=== PATIENT | female | born 1945 | race Hispanic/Latino ===

== ENCOUNTER 2018-09-08 11:00 | Inpatient (IN) | payer MEDICARE, BC ==
[2018-09-08] MEDS ORDERED: Succinylcholine 200 mg/10 ml Inj IV ONE (11:23)
[2018-09-08] MEDS ORDERED: Etomidate 20 mg/10ml Inj IV ONE (11:23)
--- NOTE | 2018-09-08 11:32 | ED PDOC ---
Arrival/HPI - General Chief Complaint: Respiratory Distress Historian: Family, EMS EM Caveat: Respiratory Distress, Intubated - History of Present Illness Narrative History of Present Illness (Text): Patient brought in by EMS for respiratory distress. Per sister in law at bedside, patient lives alone and is noncompliant with any medical care, has not seen a physician in years and thus has no formally diagnosed medical problems and takes no medications. She is a chronic smoker. She fell 3 weeks ago and since then has been fairly immobile. For the past 3 days she has not moved from her couch. Family checked in on her today and found her with shortness of breath. They were able to convince her to seek medical care, and called 911. Per medics, they arrived to find the patient hypoxic to the high 70's/low 80's, with diffuse rales. They applied CPAP and pulse ox improved to 96%, and gave the patient SL nitro. Upon arrival patient was obtunded and unable to provide any more information. Opens eyes to voice and pain and is able to state her name, but does not answer any other questions. Time/Duration: < week Symptom Onset: Gradual Symptom Course: Unchanged Activities at Onset: Rest Context: Home Past Medical History - Provider Review Nursing Documentation Reviewed: Yes - Past History Past History: Unable to Obtain - Reproductive Menopause: Yes - Cardiac Hx Cardiac Disorders: Yes - Pulmonary Hx Respiratory Disorders: Yes Hx Emphysema: Yes - Musculoskeletal/Rheumatological Hx Falls: No - Psychiatric Hx Depression: No Hx Emotional Abuse: No Hx Physical Abuse: No Hx Substance Use: No - Suicidal Assessment Feels Threatened In Home Enviroment: No Family/Social History - Physician Review Nursing Documentation Reviewed: Yes Family/Social History: No Known Family HX Smoking Status: Current Some Days Smoker Hx Alcohol Use: No (DENIES) Hx Substance Use: No Hx Substance Use Treatment: No Allergies/Home Meds Allergies/Adverse Reactions: Allergies No Known Allergies Allergy (Verified 09/08/18 11:11) Home Medications: Home Meds Medication Instructions Recorded Confirmed No Known Home Med 03/28/12 09/08/18 Review of Systems - Review of Systems Systems not reviewed;Unavailable: Intubated Physical Exam Vital Signs Reviewed: Yes Vital Signs Temp Pulse Resp BP Pulse Ox 09/08/18 11:13 97.9 F 93 H 22 106/28 L 95 Temperature: Afebrile Blood Pressure: Hypertensive Pulse: Tachycardic Respiratory Rate: Other (Intubated) Appearance: Positive for: Ill-Appearing, Unkept Pain Distress: Other (Limited due to condition) Mental Status: Positive for: other (Obtunded) - Systems Exam Head: Present: Atraumatic, Normocephalic Conjunctiva: Present: Normal, Other (crusting to eyes bilaterally) Mouth: Present: Dry Respiratory/Chest: Present: Respiratory Distress, Rales (Bilateral) Cardiovascular: Present: Regular Rate and Rhythm, Tachycardic Abdomen: No: Tenderness Lower Extremity: Present: Edema (3+ pedal edema bilaterally) Skin: Present: Rashes (candidal rash to groin, hips, and under bilateral breasts) Psychiatric: No: Alert Medical Decision Making ED Course and Treatment: 09/08/18 11:47 Impression: 73 y/o F presents to the ED via EMS complaining of SOB, respiratory distress per family. Plan: --EKG --Labs --UA --Aztreonam --Propofol --Vancomycin --Saline IV -- Reassess and disposition Prior Visits: Notes and results from previous visits were reviewed. Progress Notes: Patient obtunded upon arrival, slumped over, drooling into CPAP mask. Decision made to intubate due to mental status and impending respiratory failure. 09/08/18 11:48 PROCEDURE: INTUBATION Performed by the emergency provider Time: 11:17 Consent: Discussion of the risks, benefits, and alternatives to the procedure, along with informed consent achieved. Timeout: A timeout to verify the correct patient, procedure, and site was performed. Indication: Respiratory Distress Pre-oxygenation: [id number], BIPAP Medications: Etomidate, Succinylcholine ETT Size: 7.5 Confirmation: Cords directly visualized as tube passed, good bilateral breath sounds, positive CO2 detector color change, tube fogging, adequate chest rise, improving pulse oximetry reading, improved skin color, and absence of gastric sounds,. ETT Secured: The cuff was inflated and the tube was secured appropriately at a distance of 23cm at the lip. Post-Procedure: There were no immediate complications. Confirmation: CXR, auscultation, end-tidal CO2 with color change Patient started on propofol GTT for post-intubation sedation. BP ranged from 104-120 systolic. Multiple attempts made by RN for large bore IV access with no success. Decision made to obtain central venous access. Performed by the emergency provider, Time: 1:17 Consent: Discussion of the risks, benefits, and alternatives to the procedure, along with informed consent was precluded by the urgency of the procedure and the patient condition. Timeout: A timeout to verify the correct patient, procedure, and site was performed. Indication: Need for large bore venous access Anesthesia: Local anesthesia: Lidocaine Skin Preparation: Hand hygiene performed prior to central venous catheter insertion. Sterile field, sterile drape, sterile technique, and cap and gown were used. The area was cleansed with 2% Chlorhexidine. Patient position: Location: Right IJ Ultrasound guidance: YES Technique: The landmarks for the line placement were identified. The vessel was cannulated and a non-tunneled 7.0 Fr triple lumen was placed using the Seldinger technique. Successful placement: YES . Line sutured with silk and appropriate dressing applied. Assessment: Good patency and blood return through all three lumens. The ports were appropriately flushed. See post procedure X-Ray interpretation. Post-procedure: Patient tolerated the procedure well with no immediate complications. Patient found to be febrile. Given altered mental status and respiratory failure, sepsis presumed. Vancomycin and aztreonam started for empiric broad spectrum coverage. Normal saline infusion initiated, however this was done slowly given clinical presence of CHF. Case discussed with Dr. Law, hospitalist work environment safety inspector, accepted patient to his service. Would also like to rule out PE with CTA, and venous dopplers. Also added CPK due to patient immobility, and d-dimer. Case discussed with ICU team for critical care admission, accepted to ICU. - Critical Care Critical Care Minutes: 60 minutes Critical Care Time: Excluding Proc Time - RAD Interpretation Narrative RAD Interpretations (Text): IMPRESSION: In situ ETT Bibasilar atelectasis and/or infiltrates with suspected bilateral effusions. Cardiomegaly with right-sided aortic arch. - EKG Interpretation EKG Interpretation (Text): NSR rate 93, RAD, RVH, nonspecific ST changes, no ectopy - PA / ELECTRIC TRUCKER / Resident Statement MD/DO has reviewed & agrees with the documentation as recorded. - Scribe Statement The provider has reviewed the documentation as recorded by the Yee Serrano All medical record entries made by the Scribuday were at my direction and personally dictated by me. I have reviewed the chart and agree that the record accurately reflects my personal performance of the history, physical exam, medical decision making, and the department course for this patient. I have also personally directed, reviewed, and agree with the discharge instructions and disposition. Disposition/Present on Arrival - Present on Arrival Any Indicators Present on Arrival: No History of DVT/PE: No History of Uncontrolled Diabetes: No Urinary Catheter: No History of Decub. Ulcer: No History Surgical Site Infection Following: None - Disposition Have Diagnosis and Disposition been Completed?: Yes Diagnosis: Acute respiratory failure, CHF (congestive heart failure), Sepsis Disposition: HOSPITALIZED Disposition Time: 13:51 Patient Plan: ICU Condition: SERIOUS
[2018-09-08] MEDS: Propofol 10 mg/ml 1,000 MG/100 ML VIAL IV PRN ×3 (11:42→21:07)
[2018-09-08] MEDS: Sodium Chloride 0.9% 1,000 ML IV SCH ×2 (11:44→16:50)
[2018-09-08 11:52] VITALS: BMI 41.8
[2018-09-08 12:14] LABS: VENOUS BLOOD GAS PO2 52 mm/Hg (30-55)
[2018-09-08 12:17] LABS: BASO # 0.02 K/mm3 (0.0-2.0); BASO % 0.2 % (0.0-3.0); LYMPH # 0.7 (1.2-3.4); LYMPH % 6.7 % (22.0-35.0); MEAN CELL VOLUME 99.5 fl (80.0-105.0); MEAN CORPUSCULAR HEMOGLOBIN 30.5 pg (25.0-35.0); MEAN CORPUSCULAR HGB CONC 30.6 g/dl (31.0-37.0); MEAN PLATELET VOLUME 10.3 fl (7.0-11.0); MONO # 0.7 (0.1-0.6); MONO % 6.5 % (1.0-6.0); RBC 5.58 10^6/uL (3.5-6.1); RED CELL DISTRIBUTION WIDTH 14.6 % (11.5-14.5); WHITE BLOOD COUNT 10.9 10^3/uL (4.5-11.0)
--- NOTE | 2018-09-08 12:20 | RAD ---
Date of service: 09/08/2018 HISTORY: SOB COMPARISON: Comparison chest dated 03/28/2012 FINDINGS: In situ ETT, tip of which lies approximately 6.4 cm above chidi. Redemonstrated is a right-sided aortic arch. LUNGS: Bibasilar atelectasis and/or infiltrates and bilateral effusions suspected PLEURA: As above. No apparent pneumothorax.. CARDIOVASCULAR: No aortic atherosclerotic calcification present. Heart is enlarged. OSSEOUS STRUCTURES: Levoscoliosis centered in the midthoracic region. VISUALIZED UPPER ABDOMEN: Normal. OTHER FINDINGS: None. IMPRESSION: In situ ETT as described. Bibasilar atelectasis and/or infiltrates with suspected bilateral effusions. Cardiomegaly with right-sided aortic arch..
[2018-09-08 12:25] LABS: INR 1.32; PARTIAL THROMBOPLASTIN TIME 34.5 Seconds (26.9-38.3); PROTHROMBIN TIME 14.9 SECONDS (9.4-12.5)
[2018-09-08] MEDS ORDERED: Vancomycin 1gm in NS 250ml 1 GM/250 ML BAG IVPB STA (12:29)
[2018-09-08] MEDS ORDERED: Aztreonam 2 Gm in NS 100mL 100 ML IVPB STA (12:29)
[2018-09-08 13:03] LABS: ARTERIAL BLOOD GAS HCO3 33.5 mmol/L (21-28); ARTERIAL BLOOD GAS O2 SAT 98.4 % (95-98); ARTERIAL BLOOD GAS PCO2 73 mm/Hg (35-45); ARTERIAL BLOOD GAS PH 7.27 (7.35-7.45); ARTERIAL BLOOD GAS TCO2 35.7 mmol.L (22-28)
[2018-09-08 13:38] LABS: ALBUMIN 3.2 g/dL (3.0-4.8)
[2018-09-08 13:45] LABS: TROPONIN I 0.11 ng/mL
[2018-09-08 13:46] LABS: URINE BILIRUBIN SMALL (NEGATIVE); URINE BLOOD NEGATIVE (NEGATIVE); URINE GLUCOSE (UA) NEGATIVE (NEGATIVE); URINE LEUKOCYTE ESTERASE NEGATIVE Leu/uL (NEGATIVE); URINE PROTEIN 30 mg/dL (<30 mg/dL)
[2018-09-08 13:50] LABS: URINE APPEARANCE TURBID (CLEAR); URINE COLOR YELLOW (YELLOW)
[2018-09-08 14:01] LABS: URINE HYALINE CAST 0 - 2 /hpf
--- NOTE | 2018-09-08 14:02 | RAD ---
Date of service: 09/08/2018 HISTORY: Central line placement COMPARISON: No prior. FINDINGS: Note that the study is limited to partial obscuration of both medial lung apices due overlying facial soft tissue and mandible artifact left greater than right.. Interval placement right IJ central line with tip in the SVC/RA junction. In situ ETT again noted tip of which lies well above chidi to the left midline. LUNGS: Persistent bilateral lower lobe atelectasis and/or infiltrates and bilateral effusions left larger. PLEURA: As above. No pneumothorax apparent. CARDIOVASCULAR: Cardiomegaly again noted.. Right-sided aortic arch Bilateral lower lobe OSSEOUS STRUCTURES: No significant abnormalities. VISUALIZED UPPER ABDOMEN: Normal. OTHER FINDINGS: None. IMPRESSION: Slightly limited study demonstrating interval placement right IJ central line as above. In situ ETT. Persistent bilateral lower lobe atelectasis and/or infiltrates and bilateral effusions left larger. Cardiomegaly. Right-sided aortic arch
--- NOTE | 2018-09-08 14:25 | CARD ---
APPROVED REPORT Date of service: 09/08/2018 EKG Measurement Heart [id number] <Conclusion> Baseline artifact Normal sinus rhythm Right superior axis deviation Right ventricular hypertrophy with repolarization abnormality Inferior infarct, age undetermined Marked ST abnormality, possible lateral subendocardial injury Abnormal ECG
[2018-09-08] MEDS ORDERED: Enoxaparin 40 mg Syringe SC SCH (14:30)
[2018-09-08] MEDS ORDERED: Iohexol 350 MG/100 ML VIAL ONE (14:43)
--- NOTE | 2018-09-08 15:06 | CP.PCM.CON ---
History of Present Illness - History of Present Illness History of Present Illness: MICU CONSULT NOTE HPI Patient is 73yo female without known PMHx presented from home, after being found down for unknown period of time, with resp distress upon presentation to the ER, requiring intubation. Pt was brought in on CPAP by EMS, but had worsening SOB, tachypnea, increased work of breathing, subsequently intubated. Pt is currently intubated, and sedated, history was gathered from the chart and ER staff; no family present at the bedside. Right IJ TLC placed by the ER. PMHx none PSHx unknown Meds NONE FHx unknown Social smoker, unknown amount, ?EtOH ROS cannot obtain, intubated Review of Systems - Review of Systems Review of Systems: as per HPI Past Patient History - Past Social History Smoking Status: Current Some Days Smoker - CARDIAC Hx Cardiac Disorders: Yes - PULMONARY Hx Respiratory Disorders: Yes Hx Emphysema: Yes - MUSCULOSKELETAL/RHEUMATOLOGICAL Hx Falls: No - PSYCHIATRIC Hx Depression: No Hx Emotional Abuse: No Hx Physical Abuse: No Hx Substance Use: No - SURGICAL HISTORY Hx Surgeries: No Meds Allergies/Adverse Reactions: Allergies Allergy/AdvReac Type Severity Reaction Status Date / Time No Known Allergies Allergy Verified 09/08/18 11:11 - Medications Medications: Current Medications Acetaminophen (Tylenol 325mg Tab) 650 mg PO Q6 PRN PRN Reason: TEMP>=99.5F Acetaminophen (Tylenol 650 Mg Supp) 650 mg RC Q6H PRN PRN Reason: TEMP>=99.5F Enoxaparin Sodium (Lovenox) 40 mg SC DAILY SABIHA; Protocol Last Admin: 09/08/18 14:49 Dose: 40 mg Propofol (Diprivan) 1,000 mg in 100 mls @ 3.266 mls/hr IV .Q24H PRN; Protocol PRN Reason: TITRATE PER MD ORDER Last Admin: 09/08/18 11:42 Dose: 3.266 mls/hr Sodium Chloride (Sodium Chloride 0.9%) 1,000 mls @ 150 mls/hr IV .Q6H40M SABIHA Last Admin: 09/08/18 11:44 Dose: 150 mls/hr Doxycycline Hyclate 100 mg/ (Sodium Chloride) 100 mls @ 100 mls/hr IVPB Q12 SABIHA; Protocol Levalbuterol HCl (Xopenex) 0.63 mg IH [id number] SABIHA Ondansetron HCl (Zofran Inj) 4 mg IVP Q4H PRN PRN Reason: Nausea/Vomiting Pantoprazole Sodium (Protonix Inj) 40 mg IVP Q12 SABIHA Physical Exam - Constitutional Appears: No Acute Distress, Unkempt, Older Than Stated Age - Head Exam Head Exam: NORMAL INSPECTION - Eye Exam Eye Exam: Normal appearance - ENT Exam ENT Exam: Mucous Membranes Moist - Respiratory Exam Respiratory Exam: Rales, Wheezes, NORMAL BREATHING PATTERN - Cardiovascular Exam Cardiovascular Exam: REGULAR RHYTHM, +S1, +S2 - GI/Abdominal Exam GI & Abdominal Exam: Normal Bowel Sounds, Soft - Neurological Exam Additional comments: intubated, sedated - Skin Skin Exam: Mottled, Rash Results - Vital Signs Recent Vital Signs: Last Vital Signs Temp 101.1 F H 09/08/18 11:32 Pulse 68 09/08/18 14:00 Resp 20 09/08/18 14:00 BP 112/72 09/08/18 14:00 Pulse Ox 100 09/08/18 14:00 - Labs Result Diagrams: 09/08/18 12:00 09/08/18 13:15 Labs: Laboratory Results - last 24 hr 09/08/18 09/08/18 09/08/18 12:00 12:00 12:00 WBC 10.9 RBC 5.58 Hgb 17.0 H Hct 55.5 H* MCV 99.5 MCH 30.5 MCHC 30.6 L RDW 14.6 H Plt Count 228 MPV 10.3 Neut % (Auto) 86.6 H Lymph % (Auto) 6.7 L Bertie % (Auto) 6.5 H Eos % (Auto) 0.0 L Baso % (Auto) 0.2 Lymph # (Auto) 0.7 L Bertie # (Auto) 0.7 H Eos # (Auto) 0.0 Baso # (Auto) 0.02 Absolute Neuts (auto) 9.40 H PT 14.9 H INR 1.32 APTT 34.5 pCO2 pO2 52 HCO3 ABG pH ABG Total CO2 ABG O2 Saturation ABG Base Excess ABG Potassium VBG pH 7.20 L VBG pCO2 90.0 H* VBG HCO3 35.2 H VBG Total CO2 38.0 H VBG O2 Sat (Calc) 86.2 H VBG Base Excess 4.0 H VBG Potassium 5.5 H Sodium 137.0 Chloride 100.0 Glucose 128 H Lactate 1.7 Mechanical Rate FiO2 21.0 Tidal Volume PEEP Crit Value Called To Renee hannon Crit Value Called By 3299 Blood Gas Notified Time 1215 Potassium Carbon Dioxide Anion Gap BUN Creatinine Est GFR ( Amer) Est GFR (Non-Af Amer) Random Glucose Calcium Phosphorus Magnesium Total Bilirubin AST ALT Alkaline Phosphatase Troponin I NT-Pro-B Natriuret Pep Total Protein Albumin Globulin Albumin/Globulin Ratio Arterial Blood Potassium Venous Blood Potassium 5.5 H Urine Color Urine Appearance Urine pH Ur Specific [place] Urine Protein Urine Glucose (UA) Urine Ketones Urine Blood Urine Nitrate Urine Bilirubin Urine Urobilinogen Ur Leukocyte Esterase Urine RBC Urine WBC Ur Epithelial Cells Hyaline Casts 09/08/18 09/08/18 09/08/18 12:50 13:15 13:25 WBC RBC Hgb Hct MCV MCH MCHC RDW Plt Count MPV Neut % (Auto) Lymph % (Auto) Bertie % (Auto) Eos % (Auto) Baso % (Auto) Lymph # (Auto) Bertie # (Auto) Eos # (Auto) Baso # (Auto) Absolute Neuts (auto) PT INR APTT pCO2 73 H* pO2 108.0 H HCO3 33.5 H ABG pH 7.27 L ABG Total CO2 35.7 H ABG O2 Saturation 98.4 H ABG Base Excess 4.2 H ABG Potassium 5.1 VBG pH VBG pCO2 VBG HCO3 VBG Total CO2 VBG O2 Sat (Calc) VBG Base Excess VBG Potassium Sodium 136.0 139 Chloride 102.0 99 Glucose 120 H Lactate 1.2 Mechanical Rate 18 FiO2 100.0 Tidal Volume 400 PEEP 5 Crit Value Called To Renee hannon Crit Value Called By 3159 Blood Gas Notified Time 1300 Potassium 5.4 H Carbon Dioxide 35 H Anion Gap 11 BUN 47 H Creatinine 1.2 Est GFR ( Amer) 53 Est GFR (Non-Af Amer) 44 Random Glucose 115 H Calcium 9.0 Phosphorus 5.8 H Magnesium 1.9 Total Bilirubin 1.0 AST 36 ALT 25 Alkaline Phosphatase 92 Troponin I 0.11 NT-Pro-B Natriuret Pep 73734 H Total Protein 6.6 Albumin 3.2 Globulin 3.4 Albumin/Globulin Ratio 1.0 L Arterial Blood Potassium 5.1 Venous Blood Potassium Urine Color Yellow Urine Appearance Turbid Urine pH 6.0 Ur Specific [place] 1.020 Urine Protein 30 H Urine Glucose (UA) Negative Urine Ketones Negative Urine Blood Negative Urine Nitrate Negative Urine Bilirubin Small H Urine Urobilinogen 1.0 H Ur Leukocyte Esterase Negative Urine RBC 5 - 10 H Urine WBC None Ur Epithelial Cells 3 - 4 Hyaline Casts 0 - 2 - Imaging and Cardiology Chest x-ray Status: Image reviewed by me, Report reviewed by me Assessment & Plan - Assessment and Plan (Free Text) Assessment: 73yo female a/w resp failure, SOB Resp failure, hypoxic/hypercapnic SOB rule out CHF Rule out PNA COPD exacerbation - currently afebrile, HD stable, intubated, sedated - history is limited to the chart and ER staff, will attempt to get collaterla infor from family, on phone # on records - labs, imaging, chart reviewed, CXR pulm edema/effusions, possible infiltrate - ABG noted Recommend: - cont with vent support, low tidal vol ventilation, duonebs PRN, daily, ABG, CXR, - Solumedrol 40mg IV TID - repeat ABG - LE duplex - Rocephin, Azithro - Panculture, UCx, BCx, Procal - ID eval - Cardio eval - CHeck CPK - if CPK is normal, would start IV diuresis - ECHO - repeat cardiac enzymes - GI ppx - DVT ppx -Critical care time 35 minutes
[2018-09-08] MEDS ORDERED: cefTRIAXone 1 gm 1 GM/100 ML BAG IVPB SCH (16:15)
--- NOTE | 2018-09-08 16:31 | CT ---
Date of service: 09/08/2018 PROCEDURE: CT Chest with contrast (Pulmonary Angiogram) HISTORY: Hypoxia COMPARISON: Comparison made with chest radiograph obtained earlier same day. Comparison also made with CTA chest 03/20/2012. TECHNIQUE: Axial computed tomography images were obtained of the chest in the pulmonary arterial phase of enhancement. Coronal and sagittal reformatted images were created and reviewed. Intravenous contrast dose: 100 cc Omnipaque 350 contrast material. Radiation dose: Total exam DLP = 581.51 mGy-cm. This CT exam was performed using one or more of the following dose reduction techniques: Automated exposure control, adjustment of the mA and/or kV according to patient size, and/or use of iterative reconstruction technique. FINDINGS: Situ tracheostomy tube, tip of which lies approximately 4 cm above chidi. PULMONARY ARTERIES: There is a localized filling defect within the distal aspect right lower lobe pulmonary artery extending into least 2 possibly 3 proximal segmental low branches consistent with pulmonary embolus.. 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 No thoracic aortic aneurysm. Mild aortic atherosclerotic calcification or mural plaque present. LUNGS: There is atelectasis seen in the left medial lung base with crowding of the bronchovascular markings. Small medium size right-sided effusion is present. Mild radiology SV to liver is taking care this patient left basilar atelectasis. Some localized atelectasis and/or scarring seen middle lobe region. Vague ground-glass opacities also seen in the anterior lower lung base. PLEURAL SPACES: As above. No evidence of pneumothorax. HEART: Heart is enlarged. No significant pericardial effusion. LYMPH NODES: Small nonspecific mediastinal lymph nodes are present. BONES, CHEST WALL: Unremarkable. No fracture or destructive lesion OTHER FINDINGS: Coarse a coarse elliptical shaped superior aspect right lobe liver measuring approximately nearly 10 mm in greatest dimension. Previously seen shaped incompletely visualized low-attenuation lesion posterior superior aspect right lobe liver is not appreciated on this exam. Atrophic scarring changes right kidney with few scattered calcifications. No evidence of hydronephrosis. Previously seen posterior redemonstrated are atrophic changes right kidney IMPRESSION: There is evidence of pulmonary emboli are seen within the distal right lower lobe branches and proximal right lower lobe segmental branches.. Small right-sided effusion and mild right basilar atelectasis. There are compressive type atelectatic changes seen in the left medial lung base crowding of the bronchovascular markings. Marked cardiomegaly. Recommend echocardiogram to exclude right heart strain. 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 Findings discussed with Dr. James at approximately 4:22 p.m. with written down and read back verification
--- NOTE | 2018-09-08 16:53 | CP.PCM.CON ---
<Ketan Shrestha - Last Filed: 09/08/18 16:49> History of Present Illness - History of Present Illness History of Present Illness: Ketan Shrestha D.O. PGY-3, Internal Medicine Resident, Infectious Disease Consultation Note 73 year old female with a PMH of COPD and tobacco abuse who presented to [facility] on 09/08/18 after she was found by her family members laying in her couch for about 3 days. Infectious disease consultation was requested for possible UTI vs BL pnemonia. Patient was seen and examined at bedside. Patient is currently intubated and history cannot be obtained. From records, patient had spoken with family and was complaining of shortness of breath. After not hearing from patient for about 3 days they went to visit her and found her on the couch, suspected that she has been there for about those 3 days. Patient was intuabted in the ER. Review of Systems - Review of Systems Systems not reviewed;Unavailable: Intubated Past Patient History - Past Social History Smoking Status: Current Some Days Smoker - CARDIAC Hx Cardiac Disorders: Yes - PULMONARY Hx Respiratory Disorders: Yes Hx Emphysema: Yes - MUSCULOSKELETAL/RHEUMATOLOGICAL Hx Falls: No - PSYCHIATRIC Hx Depression: No Hx Emotional Abuse: No Hx Physical Abuse: No Hx Substance Use: No - SURGICAL HISTORY Hx Surgeries: No Meds Allergies/Adverse Reactions: Allergies Allergy/AdvReac Type Severity Reaction Status Date / Time No Known Allergies Allergy Verified 09/08/18 11:11 - Medications Medications: Current Medications Acetaminophen (Tylenol 325mg Tab) 650 mg PO Q6 PRN PRN Reason: TEMP>=99.5F Acetaminophen (Tylenol 650 Mg Supp) 650 mg RC Q6H PRN PRN Reason: TEMP>=99.5F Propofol (Diprivan) 1,000 mg in 100 mls @ 3.266 mls/hr IV .Q24H PRN; Protocol PRN Reason: TITRATE PER MD ORDER Last Admin: 09/08/18 11:42 Dose: 3.266 mls/hr Sodium Chloride (Sodium Chloride 0.9%) 1,000 mls @ 150 mls/hr IV .Q6H40M SABIHA Last Admin: 09/08/18 11:44 Dose: 150 mls/hr Doxycycline Hyclate 100 mg/ (Sodium Chloride) 100 mls @ 100 mls/hr IVPB Q12 SABIHA; Protocol Ceftriaxone Sodium (Rocephin 1 Gram Ivpb) 1 gm in 100 mls @ 100 mls/hr IVPB DAILY SABIHA; Protocol Heparin Sodium/Sodium Chloride (Heparin 24279 Units/250ml 1/2 Normal Saline) 25,000 units in 250 mls @ 19.922 mls/hr IV .[id number] PRN; Protocol PRN Reason: ADJUST RATE PER PROTOCOL Levalbuterol HCl (Xopenex) 0.63 mg IH [id number] SABIHA Methylprednisolone (Solu-Medrol) 40 mg IVP Q8 SABIHA Nystatin (Nystop Topical Powder) 0 gm TOP Q6 SABIHA Ondansetron HCl (Zofran Inj) 4 mg IVP Q4H PRN PRN Reason: Nausea/Vomiting Pantoprazole Sodium (Protonix Inj) 40 mg IVP Q12 SABIHA Physical Exam - Constitutional Appears: Unkempt, Chronically Ill Additional comments: obese, intubated - Head Exam Head Exam: ATRAUMATIC, NORMOCEPHALIC - Eye Exam Eye Exam: EOMI. absent: Scleral icterus - ENT Exam ENT Exam: Mucous Membranes Dry Additional comments: intubated - Neck Exam Additional comments: obese, soft - Respiratory Exam Respiratory Exam: Rhonchi - Cardiovascular Exam Cardiovascular Exam: Tachycardia, +S1, +S2 - GI/Abdominal Exam GI & Abdominal Exam: Soft Additional comments: erythematous lesions along skin folds - Extremities Exam Additional comments: chronic stasis changes of BLE, possible cellulitic changes to right LE - Neurological Exam Additional comments: intubated - Skin Skin Exam: Dry, Warm Additional comments: erythema along skin folds, also changes in LE as above, fungal like rashe along hands and other surfaces Results - Vital Signs Recent Vital Signs: Last Vital Signs Temp 98.9 F 09/08/18 14:00 Pulse 60 09/08/18 15:15 Resp 18 09/08/18 15:15 BP 101/66 09/08/18 15:15 Pulse Ox 100 09/08/18 15:15 - Labs Result Diagrams: 09/08/18 12:00 09/08/18 13:15 Labs: Laboratory Results - last 24 hr 09/08/18 09/08/18 09/08/18 12:00 12:00 12:00 WBC 10.9 RBC 5.58 Hgb 17.0 H Hct 55.5 H* MCV 99.5 MCH 30.5 MCHC 30.6 L RDW 14.6 H Plt Count 228 MPV 10.3 Neut % (Auto) 86.6 H Lymph % (Auto) 6.7 L Howard % (Auto) 6.5 H Eos % (Auto) 0.0 L Baso % (Auto) 0.2 Lymph # (Auto) 0.7 L Howard # (Auto) 0.7 H Eos # (Auto) 0.0 Baso # (Auto) 0.02 Absolute Neuts (auto) 9.40 H PT 14.9 H INR 1.32 APTT 34.5 pCO2 pO2 52 HCO3 ABG pH ABG Total CO2 ABG O2 Saturation ABG Base Excess ABG Potassium VBG pH 7.20 L VBG pCO2 90.0 H* VBG HCO3 35.2 H VBG Total CO2 38.0 H VBG O2 Sat (Calc) 86.2 H VBG Base Excess 4.0 H VBG Potassium 5.5 H Sodium 137.0 Chloride 100.0 Glucose 128 H Lactate 1.7 Mechanical Rate FiO2 21.0 Tidal Volume PEEP Crit Value Called To Renee hannon Crit Value Called By 3769 Blood Gas Notified Time 1215 Potassium Carbon Dioxide Anion Gap BUN Creatinine Est GFR ( Amer) Est GFR (Non-Af Amer) Random Glucose Uric Acid Calcium Phosphorus Magnesium Total Bilirubin AST ALT Alkaline Phosphatase Total Creatine Kinase Troponin I NT-Pro-B Natriuret Pep Total Protein Albumin Globulin Albumin/Globulin Ratio Arterial Blood Potassium Venous Blood Potassium 5.5 H Urine Color Urine Appearance Urine pH Ur Specific Calvert Urine Protein Urine Glucose (UA) Urine Ketones Urine Blood Urine Nitrate Urine Bilirubin Urine Urobilinogen Ur Leukocyte Esterase Urine RBC Urine WBC Ur Epithelial Cells Hyaline Casts 09/08/18 09/08/18 09/08/18 12:35 12:50 13:15 WBC RBC Hgb Hct MCV MCH MCHC RDW Plt Count MPV Neut % (Auto) Lymph % (Auto) Howard % (Auto) Eos % (Auto) Baso % (Auto) Lymph # (Auto) Howard # (Auto) Eos # (Auto) Baso # (Auto) Absolute Neuts (auto) PT INR APTT pCO2 73 H* pO2 108.0 H HCO3 33.5 H ABG pH 7.27 L ABG Total CO2 35.7 H ABG O2 Saturation 98.4 H ABG Base Excess 4.2 H ABG Potassium 5.1 VBG pH VBG pCO2 VBG HCO3 VBG Total CO2 VBG O2 Sat (Calc) VBG Base Excess VBG Potassium Sodium 136.0 139 Chloride 102.0 99 Glucose 120 H Lactate 1.2 Mechanical Rate 18 FiO2 100.0 Tidal Volume 400 PEEP 5 Crit Value Called To Renee hannon Crit Value Called By 3769 Blood Gas Notified Time 1300 Potassium 5.4 H Carbon Dioxide 35 H Anion Gap 11 BUN 47 H Creatinine 1.2 Est GFR ( Amer) 53 Est GFR (Non-Af Amer) 44 Random Glucose 115 H Uric Acid 8.0 H Calcium 9.0 Phosphorus 5.8 H Magnesium 1.9 Total Bilirubin 1.0 AST 36 ALT 25 Alkaline Phosphatase 92 Total Creatine Kinase 152 Troponin I 0.11 NT-Pro-B Natriuret Pep 36403 H Total Protein 6.6 Albumin 3.2 Globulin 3.4 Albumin/Globulin Ratio 1.0 L Arterial Blood Potassium 5.1 Venous Blood Potassium Urine Color Urine Appearance Urine pH Ur Specific Calvert Urine Protein Urine Glucose (UA) Urine Ketones Urine Blood Urine Nitrate Urine Bilirubin Urine Urobilinogen Ur Leukocyte Esterase Urine RBC Urine WBC Ur Epithelial Cells Hyaline Casts 09/08/18 13:25 WBC RBC Hgb Hct MCV MCH MCHC RDW Plt Count MPV Neut % (Auto) Lymph % (Auto) Howard % (Auto) Eos % (Auto) Baso % (Auto) Lymph # (Auto) Howard # (Auto) Eos # (Auto) Baso # (Auto) Absolute Neuts (auto) PT INR APTT pCO2 pO2 HCO3 ABG pH ABG Total CO2 ABG O2 Saturation ABG Base Excess ABG Potassium VBG pH VBG pCO2 VBG HCO3 VBG Total CO2 VBG O2 Sat (Calc) VBG Base Excess VBG Potassium Sodium Chloride Glucose Lactate Mechanical Rate FiO2 Tidal Volume PEEP Crit Value Called To Crit Value Called By Blood Gas Notified Time Potassium Carbon Dioxide Anion Gap BUN Creatinine Est GFR ( Amer) Est GFR (Non-Af Amer) Random Glucose Uric Acid Calcium Phosphorus Magnesium Total Bilirubin AST ALT Alkaline Phosphatase Total Creatine Kinase Troponin I NT-Pro-B Natriuret Pep Total Protein Albumin Globulin Albumin/Globulin Ratio Arterial Blood Potassium Venous Blood Potassium Urine Color Yellow Urine Appearance Turbid Urine pH 6.0 Ur Specific Calvert 1.020 Urine Protein 30 H Urine Glucose (UA) Negative Urine Ketones Negative Urine Blood Negative Urine Nitrate Negative Urine Bilirubin Small H Urine Urobilinogen 1.0 H Ur Leukocyte Esterase Negative Urine RBC 5 - 10 H Urine WBC None Ur Epithelial Cells 3 - 4 Hyaline Casts 0 - 2 Assessment & Plan - Assessment and Plan (Free Text) Assessment: 73 year old female with a PMH of COPD and tobacco abuse who presented to [facility] on 09/08/18 after she was found by her family members laying in her couch for about 3 days. Infectious disease consultation was requested for possible UTI vs BL pnemonia. Plan: Severe sepsis (3/4 SIRS with tachycardia, tachypnea and fever and likely pulmonary source) with RUBI Acute respiratory failure Likely BL pneumonia Pleural effusions CXR reviewed, appears to show BL basal atelectasis vs pneumonia Chest CT supports above with BL pleural effusions and compressive atelectasis vs pneumonia and also subsegmental PE Procalcitonin, legionella ag, and strep ag ordered Started empirically on doxy/merrem/vanco Day 1 Pancultured Agree with echo evaluation Being followed by ICU team We will follow with you Patient was seen and examined and case to be discussed with attending physician. Thank you for the pleasure of participating in the care of this interesting patient. - Date & Time Date: 09/08/18 Time: 16:56 <Agapito Rojo - Last Filed: 09/08/18 18:23> Meds - Medications Medications: Current Medications Acetaminophen (Tylenol 325mg Tab) 650 mg PO Q6 PRN PRN Reason: TEMP>=99.5F Acetaminophen (Tylenol 650 Mg Supp) 650 mg RC Q6H PRN PRN Reason: TEMP>=99.5F Propofol (Diprivan) 1,000 mg in 100 mls @ 3.266 mls/hr IV .Q24H PRN; Protocol PRN Reason: TITRATE PER MD ORDER Last Admin: 09/08/18 16:55 Dose: 30.61 mcg/kg/min, 20 mls/hr Sodium Chloride (Sodium Chloride 0.9%) 1,000 mls @ 150 mls/hr IV .Q6H40M SABIHA Last Admin: 09/08/18 16:50 Dose: 150 mls/hr Doxycycline Hyclate 100 mg/ (Sodium Chloride) 100 mls @ 100 mls/hr IVPB Q12 SABIHA; Protocol Heparin Sodium/Sodium Chloride (Heparin 15676 Units/250ml 1/2 Normal Saline) 25,000 units in 250 mls @ 19.922 mls/hr IV .[id number] PRN; Protocol PRN Reason: ADJUST RATE PER PROTOCOL Last Admin: 09/08/18 17:09 Dose: 18 units/kg/hr, 19.922 mls/hr Vancomycin HCl (Vancomycin 1gm) 1 gm in 250 mls @ 167 mls/hr IVPB DAILY SABIHA; Protocol Meropenem (Merrem Iv 1 Gm Premix) 1 gm in 50 mls @ 100 mls/hr IVPB Q12 SABIHA; Protocol Stop: 09/17/18 22:01 Levalbuterol HCl (Xopenex) 0.63 mg IH [id number] SABIHA Methylprednisolone (Solu-Medrol) 40 mg IVP Q8 SABIHA Nystatin (Nystop Topical Powder) 0 gm TOP Q6 SABIHA Last Admin: 09/08/18 18:04 Dose: 1 pdr Ondansetron HCl (Zofran Inj) 4 mg IVP Q4H PRN PRN Reason: Nausea/Vomiting Pantoprazole Sodium (Protonix Inj) 40 mg IVP Q12 SABIHA Results - Vital Signs Recent Vital Signs: Last Vital Signs Temp 98.9 F 09/08/18 14:00 Pulse 60 09/08/18 15:15 Resp 18 09/08/18 15:15 BP 101/66 09/08/18 15:15 Pulse Ox 100 09/08/18 15:15 - Labs Result Diagrams: 09/08/18 12:00 09/08/18 13:15 Labs: Laboratory Results - last 24 hr 09/08/18 09/08/18 09/08/18 12:00 12:00 12:00 WBC 10.9 RBC 5.58 Hgb 17.0 H Hct 55.5 H* MCV 99.5 MCH 30.5 MCHC 30.6 L RDW 14.6 H Plt Count 228 MPV 10.3 Neut % (Auto) 86.6 H Lymph % (Auto) 6.7 L Howard % (Auto) 6.5 H Eos % (Auto) 0.0 L Baso % (Auto) 0.2 Lymph # (Auto) 0.7 L Howard # (Auto) 0.7 H Eos # (Auto) 0.0 Baso # (Auto) 0.02 Absolute Neuts (auto) 9.40 H PT 14.9 H INR 1.32 APTT 34.5 pCO2 pO2 52 HCO3 ABG pH ABG Total CO2 ABG O2 Saturation ABG Base Excess ABG Potassium VBG pH 7.20 L VBG pCO2 90.0 H* VBG HCO3 35.2 H VBG Total CO2 38.0 H VBG O2 Sat (Calc) 86.2 H VBG Base Excess 4.0 H VBG Potassium 5.5 H Sodium 137.0 Chloride 100.0 Glucose 128 H Lactate 1.7 Mechanical Rate FiO2 21.0 Tidal Volume PEEP Crit Value Called To Renee hannon Crit Value Called By [id number] Blood Gas Notified Time 1215 Potassium Carbon Dioxide Anion Gap BUN Creatinine Est GFR ( Amer) Est GFR (Non-Af Amer) Random Glucose Uric Acid Calcium Phosphorus Magnesium Total Bilirubin AST ALT Alkaline Phosphatase Total Creatine Kinase Troponin I NT-Pro-B Natriuret Pep Total Protein Albumin Globulin Albumin/Globulin Ratio Arterial Blood Potassium Venous Blood Potassium 5.5 H Urine Color Urine Appearance Urine pH Ur Specific Calvert Urine Protein Urine Glucose (UA) Urine Ketones Urine Blood Urine Nitrate Urine Bilirubin Urine Urobilinogen Ur Leukocyte Esterase Urine RBC Urine WBC Ur Epithelial Cells Hyaline Casts 09/08/18 09/08/18 09/08/18 12:35 12:50 13:15 WBC RBC Hgb Hct MCV MCH MCHC RDW Plt Count MPV Neut % (Auto) Lymph % (Auto) Howard % (Auto) Eos % (Auto) Baso % (Auto) Lymph # (Auto) Howard # (Auto) Eos # (Auto) Baso # (Auto) Absolute Neuts (auto) PT INR APTT pCO2 73 H* pO2 108.0 H HCO3 33.5 H ABG pH 7.27 L ABG Total CO2 35.7 H ABG O2 Saturation 98.4 H ABG Base Excess 4.2 H ABG Potassium 5.1 VBG pH VBG pCO2 VBG HCO3 VBG Total CO2 VBG O2 Sat (Calc) VBG Base Excess VBG Potassium Sodium 136.0 139 Chloride 102.0 99 Glucose 120 H Lactate 1.2 Mechanical Rate 18 FiO2 100.0 Tidal Volume 400 PEEP 5 Crit Value Called To Renee hannon Crit Value Called By 3769 Blood Gas Notified Time 1300 Potassium 5.4 H Carbon Dioxide 35 H Anion Gap 11 BUN 47 H Creatinine 1.2 Est GFR ( Amer) 53 Est GFR (Non-Af Amer) 44 Random Glucose 115 H Uric Acid 8.0 H Calcium 9.0 Phosphorus 5.8 H Magnesium 1.9 Total Bilirubin 1.0 AST 36 ALT 25 Alkaline Phosphatase 92 Total Creatine Kinase 152 Troponin I 0.11 NT-Pro-B Natriuret Pep 30877 H Total Protein 6.6 Albumin 3.2 Globulin 3.4 Albumin/Globulin Ratio 1.0 L Arterial Blood Potassium 5.1 Venous Blood Potassium Urine Color Urine Appearance Urine pH Ur Specific Calvert Urine Protein Urine Glucose (UA) Urine Ketones Urine Blood Urine Nitrate Urine Bilirubin Urine Urobilinogen Ur Leukocyte Esterase Urine RBC Urine WBC Ur Epithelial Cells Hyaline Casts 09/08/18 13:25 WBC RBC Hgb Hct MCV MCH MCHC RDW Plt Count MPV Neut % (Auto) Lymph % (Auto) Howard % (Auto) Eos % (Auto) Baso % (Auto) Lymph # (Auto) Howard # (Auto) Eos # (Auto) Baso # (Auto) Absolute Neuts (auto) PT INR APTT pCO2 pO2 HCO3 ABG pH ABG Total CO2 ABG O2 Saturation ABG Base Excess ABG Potassium VBG pH VBG pCO2 VBG HCO3 VBG Total CO2 VBG O2 Sat (Calc) VBG Base Excess VBG Potassium Sodium Chloride Glucose Lactate Mechanical Rate FiO2 Tidal Volume PEEP Crit Value Called To Crit Value Called By Blood Gas Notified Time Potassium Carbon Dioxide Anion Gap BUN Creatinine Est GFR ( Amer) Est GFR (Non-Af Amer) Random Glucose Uric Acid Calcium Phosphorus Magnesium Total Bilirubin AST ALT Alkaline Phosphatase Total Creatine Kinase Troponin I NT-Pro-B Natriuret Pep Total Protein Albumin Globulin Albumin/Globulin Ratio Arterial Blood Potassium Venous Blood Potassium Urine Color Yellow Urine Appearance Turbid Urine pH 6.0 Ur Specific Calvert 1.020 Urine Protein 30 H Urine Glucose (UA) Negative Urine Ketones Negative Urine Blood Negative Urine Nitrate Negative Urine Bilirubin Small H Urine Urobilinogen 1.0 H Ur Leukocyte Esterase Negative Urine RBC 5 - 10 H Urine WBC None Ur Epithelial Cells 3 - 4 Hyaline Casts 0 - 2 Attending/Attestation - Attestation I have personally seen and examined this patient.: Yes I have fully participated in the care of the patient.: Yes I have reviewed all pertinent clinical information: Yes
[2018-09-08] MEDS: Heparin25000 units/250ml 1/2NS 25,000 UNITS/250 ML BAG IV PRN (17:09)
[2018-09-08] MEDS: Nystatin 100,000 Units/gm Topical Pow(15 gm) TOP SCH (18:04)
[2018-09-08] MEDS: Levalbuterol 0.63 MG/3 ML Inhal Soln UD IH SCH (19:49)
[2018-09-08 20:13] LABS: ARTERIAL BLOOD GAS HCO3 27.7 mmol/L (21-28); ARTERIAL BLOOD GAS HEMOGLOBIN 15.5 g/dL (11.7-17.4); ARTERIAL BLOOD GAS O2 CAPACITY 21.1 mL/dl (16-24); ARTERIAL BLOOD GAS O2 CONTENT 20.9 ML/dl (15-23); ARTERIAL BLOOD GAS PCO2 38 mm/Hg (35-45); ARTERIAL BLOOD GAS PH 7.47 (7.35-7.45); ARTERIAL BLOOD GAS TCO2 28.9 mmol.L (22-28)
[2018-09-08 20:40] LABS: FREE T4 0.83 ng/dL (0.78-2.19)
[2018-09-08 20:49] LABS: TROPONIN I 0.13 ng/mL
[2018-09-08] MEDS: Meropenem IV 1 gm in NS 1 GM/50 ML BAG IVPB SCH (21:06)
[2018-09-08] MEDS: MethylPREDNISolone 40 mg Vial IVP SCH (21:07)
[2018-09-08] MEDS ORDERED: MEROPENEM 500 MG in NS 500 MG/50 ML BAG IVPB SCH (22:00)
--- NOTE | 2018-09-08 22:23 | CP.PCM.PN ---
Subjective - Date & Time of Evaluation Date of Evaluation: 09/08/18 Time of Evaluation: 22:20 - Subjective Subjective: It was requested to co sign order renew restraint order. Patient has been intubated . Medical record was reviewed. This 73 year old woman was admitted after she was found to haverespiratory distress of unknown duration. Intubated. H & H-17/55.5. Hyperkalemia-5.4. BUN-47. D-dimer 1600. 7.47/38/98/27.7 on 80%. Trop 0.13 T4 3.4. CXR- B/L basal atelectasis VS PNA. CT Angio.-Pulmonary emboli within distal RLL. Lower Ext. doppler-Neg. PMH: COPD. Tobacco abuse. CURRENT MEDS: Diprivan. Doxycycline. Merrem Protonix. nystatin. Heparin drip. solumedrol Objective - Vital Signs/Intake and Output Vital Signs (last 24 hours): Temp Pulse Resp BP Pulse Ox 98.8 F 69 21 134/76 90 L 09/08/18 20:00 09/08/18 19:30 09/08/18 16:12 09/08/18 19:00 09/08/18 19:30 Intake and Output: 09/08/18 09/09/18 18:59 06:59 Intake Total 700 100 Output Total 700 Balance 0 100 - Medications Medications: Current Medications Acetaminophen (Tylenol 325mg Tab) 650 mg PO Q6 PRN PRN Reason: TEMP>=99.5F Acetaminophen (Tylenol 650 Mg Supp) 650 mg RC Q6H PRN PRN Reason: TEMP>=99.5F Propofol (Diprivan) 1,000 mg in 100 mls @ 3.266 mls/hr IV .Q24H PRN; Protocol PRN Reason: TITRATE PER MD ORDER Last Admin: 09/08/18 21:07 Dose: 30.61 mcg/kg/min, 20 mls/hr Sodium Chloride (Sodium Chloride 0.9%) 1,000 mls @ 150 mls/hr IV .Q6H40M SABIHA Last Admin: 09/08/18 16:50 Dose: 150 mls/hr Doxycycline Hyclate 100 mg/ (Sodium Chloride) 100 mls @ 100 mls/hr IVPB Q12 SABIHA; Protocol Last Admin: 09/08/18 21:07 Dose: 100 mls/hr Heparin Sodium/Sodium Chloride (Heparin 53899 Units/250ml 1/2 Normal Saline) 25,000 units in 250 mls @ 19.922 mls/hr IV .[id number] PRN; Protocol PRN Reason: ADJUST RATE PER PROTOCOL Last Admin: 09/08/18 17:09 Dose: 18 units/kg/hr, 19.922 mls/hr Vancomycin HCl (Vancomycin 1gm) 1 gm in 250 mls @ 167 mls/hr IVPB DAILY SABIHA; Protocol Meropenem (Merrem Iv 1 Gm Premix) 1 gm in 50 mls @ 100 mls/hr IVPB Q12 SABIHA; Protocol Stop: 09/17/18 22:01 Last Admin: 09/08/18 21:06 Dose: 100 mls/hr Levalbuterol HCl (Xopenex) 0.63 mg IH [id number] SABIHA Last Admin: 09/08/18 19:49 Dose: 0.63 mg Methylprednisolone (Solu-Medrol) 40 mg IVP Q8 SABIHA Last Admin: 09/08/18 21:07 Dose: 40 mg Nystatin (Nystop Topical Powder) 0 gm TOP Q6 SABIHA Last Admin: 09/08/18 18:04 Dose: 1 pdr Ondansetron HCl (Zofran Inj) 4 mg IVP Q4H PRN PRN Reason: Nausea/Vomiting Pantoprazole Sodium (Protonix Inj) 40 mg IVP Q12 SABIHA - Labs Labs: 09/08/18 12:00 09/08/18 13:15 PT 14.9 SECONDS (9.4-12.5) H 09/08/18 12:00 INR 1.32 09/08/18 12:00 APTT 34.5 Seconds (26.9-38.3) 09/08/18 12:00 - Constitutional Appears: No Acute Distress - Head Exam Head Exam: ATRAUMATIC, NORMAL INSPECTION, NORMOCEPHALIC - Eye Exam Eye Exam: Normal appearance - ENT Exam ENT Exam: Normal External Ear Exam - Neck Exam Neck Exam: Normal Inspection - Respiratory Exam Respiratory Exam: NORMAL BREATHING PATTERN - Cardiovascular Exam Cardiovascular Exam: absent: JVD - GI/Abdominal Exam GI & Abdominal Exam: absent: Distended - Rectal Exam Rectal Exam: Deferred - Exam Additional comments: Deferred. - Extremities Exam Extremities Exam: Normal Inspection - Back Exam Back Exam: NORMAL INSPECTION - Neurological Exam Neurological Exam: Altered - Psychiatric Exam Additional comments: Intubated. - Skin Skin Exam: Normal Color Assessment and Plan - Assessment and Plan (Free Text) Assessment: Reapiratory failure. Right lower lobe pulmonary embolism. COPD. Tobacco use. Elevated D-dimer. Obesity. Elevated troponin. Plan: Restrain both wrist to avoid extubation. Continue present management.
[2018-09-08] MEDS ORDERED: Influenza Vaccine 60 mcg/0.5 mL SYR (4YR UP) IM ONE (22:42)
[2018-09-08] MEDS ORDERED: Pneumococcal 23-Valent Vaccine IM ONE (22:42)
[2018-09-08] MEDS ORDERED: Dextrose 50% SYRINGE Inj (50 ml) IV PRN (22:59)
[2018-09-09] MEDS: Insulin Lispro (HUMAlog) HIGH Coverage SC SCH ×5 (00:16→23:21)
[2018-09-09] MEDS: Nystatin 100,000 Units/gm Topical Pow(15 gm) TOP SCH ×5 (00:18→23:17)
[2018-09-09 00:27] LABS: TROPONIN I 0.08 ng/mL
[2018-09-09 01:19] LABS: BARBITURATES, UR NEGATIVE (NEGATIVE); BENZODIAZEPINES, UR NEGATIVE (NEGATIVE); OPIATES, UR NEGATIVE (NEGATIVE); PHENCYCLIDINE, UR NEGATIVE (NEGATIVE)
[2018-09-09] MEDS: Levalbuterol 0.63 MG/3 ML Inhal Soln UD IH SCH ×4 (02:13→20:15)
[2018-09-09] MEDS: Nystatin 100,000 Units/gm Cream(15 gm) TOP SCH ×4 (02:19→17:38)
[2018-09-09] MEDS: Propofol 10 mg/ml 1,000 MG/100 ML VIAL IV PRN (02:39)
--- NOTE | 2018-09-09 03:24 | HP ---
DATE OF EXAM: 09/08/2018 HISTORY OF PRESENT ILLNESS: The patient is a 73-year-old female who was brought to the [facility] emergency room by the EMS, [facility]. The patient called 911 complaining of sick and respiratory distress. According to the ER evaluation by the EMS, the patient was found to be sick and respiratory distress on arrival, was noted to have crackles all the way. The patient was finally to be hypoxic in the field by the EMS about saturating around 80%. The patient was put on BiPAP by the EMS squad and brought to the [facility] emergency room. According to the ER physician evaluation, most of the history is obtained through the patient's sister. According to the sister, the patient lives alone, has not seen doctor for decades, does not take any medication, but is an active smoker. According to the ER physician evaluation, the patient lives alone, fell 3 weeks ago and has not been responsive to calls and has not been . The family arrived at the patient's home and the patient was found to be laying in couch. The patient was found to be short of breath. EMS was called right away. The patient was found to be drowsy with bilateral rales. The patient was put on BiPAP. The patient was given sublingual nitroglycerin. REVIEW OF SYSTEMS: A 14-system review positive for above. CODE STATUS: Full code. LIVING WILL ADVANCE DIRECTIVE: None. Height is 5 feet 4 inches. Weight is 244. BMI is 42. ALLERGIES: NONE. HOME MEDICATIONS: None. SOCIAL HISTORY: Positive for active smoker. 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 FAMILY HISTORY: Not available at this time. OCCUPATIONAL HISTORY: As above. MENSTRUAL HISTORY: Postmenopausal. MEDICATIONS: None. PAST MEDICAL HISTORY: Significant for active smoker, history of morbid obesity, history of nicotine addiction and dependence, history of hypertensive cardiovascular disease, history of poor compliance and noncompliance. PHYSICAL EXAMINATION: GENERAL: The patient was seen in the ICU intubated. The patient's sister is at bedside. The patient is responsive to painful stimuli. VITAL SIGNS: T-max 101, temperature 101 degrees Fahrenheit. Telemetry shows sinus rhythm, heart rate 70s and 80s. Initial heart rate was 97. Blood pressure initially 151/90 and repeat blood pressure systolic around 110 and 140 systolic. The patient was intubated in the emergency room, O2 sat initially was 94, then up to 98%. The patient is presently intubated. The patient is on vent support with rate of 20, tidal volume 450, PEEP of 5, and O2 sat of 80% at present. HEENT: Head; normocephalic and atraumatic. HEENT examination shows pink conjunctivae. Positive ET tube. NECK: Questionable jugular venous distention. CHEST: Kyphosis. LUNGS: Shows coarse rhonchi and wheezing bilaterally. Decreased breath sounds at the bases. CARDIOVASCULAR: S1 and S2, regular rhythm. Positive systolic murmur left sternal border, right second intercostal space, left second intercostal space. Positive systolic murmur. ABDOMEN: Protuberant and obese. Positive bowel sounds. Positive poor hygiene and groin rash noted. GENITALIA: Female. Positive Alonzo catheter noted. MUSCULOSKELETAL: Shows a body mass index of 42. EXTREMITIES: The patient has 2+ pitting edema noted of the lower extremity. NEUROLOGIC: The patient is sedated, intubated, and responsive to painful stimuli. The patient's neuro examination is limited. DIAGNOSTIC DATA: CBC shows granulocytes 87 and hemoglobin and hematocrit 17 and 55.5. PT/PTT 14.9 and 34.5. D-dimer is 1600. Initial ABG; pH of 7.27, pCO2 of 73, and pO2 of 108. Repeat ABG on 80% FIO2, pH of 7.47, pCO2 of 38, pO2 of 98, bicarb 28, and O2 sat is 99%. Chemistry is significant for potassium 5.4, BUN 47, CO2 of 35, uric acid 8, hemoglobin A1c 6.8, glucose 115, and phosphorus 5.8. Troponin initially 0.11 then 0.13. BNP is 30,000. Urinalysis; 30 protein and small bilirubin. The patient had a CT angio done, the results were reviewed. The patient had a chest x-ray done, the results were reviewed. EKG was done in the emergency room, which was reviewed. The patient also had a right internal jugular triple-lumen catheter placement. IMPRESSION AND PLAN: 1. Acute ventilator-dependent respiratory failure. 2. Acute ventilator-dependent hypoxic-hypercarbic respiratory failure. 3. Respiratory acidosis with hypercarbia. 4. Distal right lower lobe and proximal right lower lobe segmental branches pulmonary embolism. 5. Right lower lobe pneumonia, infiltrate atelectasis with right-sided effusion. 6. Bibasilar atelectasis. 7. Cardiomegaly. 8. Possible pulmonary hypertension. 9. Right-sided aortic arch with aberrant left subclavian artery. 10. Left lower lobe atelectasis. 11. Bibasilar pulmonary opacities versus pneumonia. 12. Nonspecific mediastinal lymphadenopathy. 13. Active nicotine addiction and dependence. 14. Right renal atrophic scarring. 15. Right axis deviation. 16. Right ventricular hypertrophy. 17. Possible acute non-ST elevation myocardial infarction with elevated troponin. 18. Questionable sepsis with high-grade fever. 19. Tachycardia. 20. Tachypnea. 21. Hypoxemia. 22. Erythrocytosis with granulocytosis. 23. Elevated d-dimer. 24. Hypercarbia respiratory acidosis. 25. Non-hemolyzed hyperkalemia. 26. Possible new-onset diabetes mellitus. 27. Metabolic alkalosis. 28. Prerenal kidney injury. 29. Acute non-ST elevation myocardial infarction with elevated troponin and abnormal electrocardiogram with right axis deviation, right ventricular hypertrophy, and age indeterminate inferior infarct and possible lateral subendocardial injury. 30. Hyperphosphatemia. 31. Congestive heart failure whether systolic or diastolic with elevated ProBNP. 32. Proteinuria. 33. Bibasilar atelectasis, pneumonia and bilateral pleural effusion. 34. Cardiomegaly. 35. Status post right internal jugular triple-lumen catheter placement. 36. High-grade fever. 37. Right-sided aortic arch. 38. Acute exacerbation of chronic obstructive pulmonary disease. 39. Bibasilar atelectasis, infiltrate and bilateral pleural effusion. 40. Bilateral inguinal area fungal rash. 41. Severe sepsis. 42. Morbid obesity. 43. Bilateral lower extremity venous stasis. 44. Early diabetes mellitus. The patient at this time is admitted to Intensive Care Unit. The patient is continued on ventilator support. The patient has been ordered repeat serial labs, repeat cardiac enzymes, lipid panel, liver panel, magnesium, phosphorus, proBNP troponin, influenza titers ordered, Strep pneumoniae ordered, repeat CBC and PT/PTT daily ordered, and repeat ABG ordered. Blood, urine, MRSA cultures, and sputum cultures ordered. CONSULTATIONS: Cardiology, Infectious Disease, and Nephrology. CURRENT MEDICATIONS: The patient was given 2 g of Azactam in the ER. The patient was started on doxycycline 100 IV every 12 hours. The patient was started on IV heparin drip for the treatment of pulmonary embolism and also acute [id number] myocardial infarction. The patient was started on insulin sliding scale every 6 hours. The patient is started on pharmacological, non-pharmacological, GI, DVT prophylaxis, Lasix 40 IV every 12 hours, meropenem 1 g IV every 12 hours, Mycostatin cream to the groin area, and nicotine patch 21 mg daily. The patient is presently on Diprivan drip and Protonix 40 IV every 12 hours. The patient received Solu-Medrol 60 IV in the ER. The patient is now on Solu-Medrol 40 IV every 8 hours, Tylenol p.o. suppository every 6 hours p.r.n. the patient is also started on vancomycin 1 g IV daily by Infectious Disease, Xopenex nebulizer 0.63 mg every 6 hours [id number], and Zofran four IV every 4 hours. Venous Doppler preliminary report was to be negative, but official report pending. The patient has been ordered repeat EKG daily, echo with Doppler ordered. SCDs and OCHOA stockings ordered. In addition, the patient will be ordered Podiatry evaluation. The patient is presently intubated, admitted to ICU. The patient's all clinical details, all test results, all diagnostic details, initial admission impression, diagnosis was explained and discussed with the patient's dpuabd-qw-yup, Dr. Kaye Lopez, she is the [id number]. I have explained to the patient's vojkos-op-zob about overall guarded to poor prognosis, critical condition, which she acknowledged and understand. I have advised to the patient's odkxbl-ll-eoy about overall guarded to poor prognosis, critical condition which she acknowledged and understand. I have also explained to the patient's erqqim-lc-ksh in layman's language about the patient's overall guarded to poor prognosis and the likelihood of developing complications was also explained to the patient's dferda-od-yxl, which she acknowledged understand. All of the above was discussed with the patient's fwwbxv-uy-pun in layman's language. All questions concerned answered. At present, the patient is admitted to ICU. The patient's diagnostic data was reviewed, including all the diagnostic data was reviewed. The patient was examined in ICU. Time spent in the entire management more than 1 hour 55 minutes. Dictated and electronically signed, not read. Manuel Law MD
[2018-09-09] MEDS: MethylPREDNISolone 40 mg Vial IVP SCH ×3 (05:15→21:00)
[2018-09-09 06:20] LABS: ARTERIAL BLOOD GAS HCO3 30.8 mmol/L (21-28); ARTERIAL BLOOD GAS HEMOGLOBIN 15.4 g/dL (11.7-17.4); ARTERIAL BLOOD GAS O2 CAPACITY 20.9 mL/dl (16-24); ARTERIAL BLOOD GAS O2 CONTENT 19.7 ML/dl (15-23); ARTERIAL BLOOD GAS O2 SAT 94.2 % (95-98); ARTERIAL BLOOD GAS PCO2 52 mm/Hg (35-45); ARTERIAL BLOOD GAS PH 7.38 (7.35-7.45); ARTERIAL BLOOD GAS TCO2 32.4 mmol.L (22-28)
[2018-09-09 06:50] LABS: HEMOGLOBIN 15.6 g/dL (12.0-16.0); LYMPH # 0.6 (1.2-3.4); LYMPH % 6.3 % (22.0-35.0); MEAN CELL VOLUME 95.4 fl (80.0-105.0); MEAN CORPUSCULAR HEMOGLOBIN 29.7 pg (25.0-35.0); MEAN CORPUSCULAR HGB CONC 31.1 g/dl (31.0-37.0); MONO # 0.4 (0.1-0.6); MONO % 3.9 % (1.0-6.0); RBC 5.26 10^6/uL (3.5-6.1); RED CELL DISTRIBUTION WIDTH 14.6 % (11.5-14.5); WHITE BLOOD COUNT 9.5 10^3/uL (4.5-11.0)
[2018-09-09 07:06] LABS: INR 1.39; PARTIAL THROMBOPLASTIN TIME 81.3 Seconds (26.9-38.3); PROTHROMBIN TIME 15.7 SECONDS (9.4-12.5)
[2018-09-09 07:27] LABS: B-TYPE NATRIURETIC PEPTIDE 13100 pg/mL (0-450)
[2018-09-09 07:28] LABS: ALBUMIN 2.7 g/dL (3.0-4.8); ALT/SGPT 22 U/L (7-56); AST/SGOT 28 U/L (14-36); BILIRUBIN,DIRECT 0.5 mg/dL (0.0-0.4); BLOOD UREA NITROGEN 47 mg/dL (7-21); CALCIUM 8.4 mg/dL (8.4-10.5); GFR NON-AFRICAN AMERICAN 54; HDL CHOLESTEROL 21 mg/dL (29-60)
[2018-09-09 07:30] LABS: LDL CHOLESTEROL 50 mg/dL (0-129)
[2018-09-09] MEDS ORDERED: Insulin Lispro (HUMAlog) HIGH Coverage SC SCH (07:30)
[2018-09-09 08:49] LABS: FRUCTOSAMINE 188 umol/L (190-270)
[2018-09-09] MEDS: Vancomycin 1gm in NS 250ml 1 GM/250 ML BAG IVPB SCH (09:02)
[2018-09-09] MEDS: Meropenem IV 1 gm in NS 1 GM/50 ML BAG IVPB SCH ×2 (09:03→21:01)
--- NOTE | 2018-09-09 09:18 | PN ---
DATE: 09/09/2018 SUBJECTIVE: The patient is intubated in ICU, in room 128, bed 3. Overnight events were reviewed. The patient required restraints. PHYSICAL EXAMINATION: VITAL SIGNS: T-max 101 degrees Fahrenheit down to 98.9. Telemetry shows sinus rhythm, heart rate 68 and 74, latest blood pressure 105/61, O2 sat 93% on vent support, respirations 18. HEAD: Normocephalic, atraumatic. HEENT: Shows pink conjunctivae, anicteric sclerae, positive ET tube. No neck rigidity. CHEST: Kyphosis. LUNGS: Show positive rhonchi. Creps, right more than the left. Decreased breath sound at the bases. CARDIOVASCULAR: S1, S2, regular rhythm. Positive systolic murmur in left sternal border, right second intercostal space, left second intercostal space. ABDOMEN: Protuberant. Positive bowel sounds. Obese abdomen. GENITALIA: Female. Positive Alonzo catheter. Positive bilateral inguinal area rash noted. EXTREMITIES: Show positive pitting edema. MUSCULOSKELETAL: Shows an elevated body mass index. DIAGNOSTICS: From 09/09/2018 is still pending. Chest x-ray preliminary report was reviewed. It looks like right lower lobe infiltrate with cardiomegaly and atelectasis. EKG pending. Diagnostic labs from 09/09/2018 pending, which will be reviewed later. IMPRESSION AND PLAN: 1. Acute hypoxic hypercapnic ventilator-dependent respiratory failure. 2. Right lower lobe acute pulmonary embolism. 3. Hypoxemia. 4. Severe sepsis. 5. Acute exacerbation of chronic obstructive pulmonary disease with hypoxemia. 6. Congestive heart failure, most likely right-sided diastolic congestive heart failure. 7. Fever. 8. Possible bilateral multilobar bibasilar pneumonia. 9. Acute [id number] myocardial infarction with elevated troponin of 0.13. 10. Coronary ischemic changes on the EKG. 11. Morbid obesity with diagnosis of active nicotine addiction and dependence. 12. Possible healthcare versus community-acquired multilobar pneumonia. 13. Active nicotine addiction. 14. Status post right internal jugular triple lumen placement. 15. Bilateral pleural effusion. 16. Morbid obesity. 17. Early diabetes mellitus. 18. Right axis deviation. 1. Acute ventilator-dependent respiratory failure. 2. Acute ventilator-dependent hypoxic-hypercarbic respiratory failure. 3. Respiratory acidosis with hypercarbia. 4. Distal right lower lobe and proximal right lower lobe segmental branches pulmonary embolism. 5. Right lower lobe pneumonia, infiltrate atelectasis with right-sided effusion. 6. Bibasilar atelectasis. 7. Cardiomegaly. 8. Possible pulmonary hypertension. 9. Right-sided aortic arch with aberrant left subclavian artery. 10. Left lower lobe atelectasis. 11. Bibasilar pulmonary opacities versus pneumonia. 12. Nonspecific mediastinal lymphadenopathy. 13. Active nicotine addiction and dependence. 14. Right renal atrophic scarring. 15. Right axis deviation. 16. Right ventricular hypertrophy. 17. Possible acute non-ST elevation myocardial infarction with elevated troponin. 18. Questionable sepsis with high-grade fever. 19. Tachycardia. 20. Tachypnea. 21. Hypoxemia. 22. Erythrocytosis with granulocytosis. 23. Elevated d-dimer. 24. Hypercarbia respiratory acidosis. 25. Non-hemolyzed hyperkalemia. 26. Possible new-onset diabetes mellitus. 27. Metabolic alkalosis. 28. Prerenal kidney injury. 29. Acute non-ST elevation myocardial infarction with elevated troponin and abnormal electrocardiogram with right axis deviation, right ventricular hypertrophy, and age indeterminate inferior infarct and possible lateral subendocardial injury. 30. Hyperphosphatemia. 31. Congestive heart failure whether systolic or diastolic with elevated ProBNP. 32. Proteinuria. 33. Bibasilar atelectasis, pneumonia and bilateral pleural effusion. 34. Cardiomegaly. 35. Status post right internal jugular triple-lumen catheter placement. 36. High-grade fever. 37. Right-sided aortic arch. 38. Acute exacerbation of chronic obstructive pulmonary disease. 39. Bibasilar atelectasis, infiltrate and bilateral pleural effusion. 40. Bilateral inguinal area fungal rash. 41. Severe sepsis. 42. Morbid obesity. 43. Bilateral lower extremity venous stasis. 44. Early diabetes mellitus. PLAN: At this time, the patient is to be continued on ventilator support till complete weaning and extubation. The patient will be continued on broad-spectrum IV antibiotics, bronchodilators, IV steroids, pharmacological/non-pharmacological GI and DVT prophylaxis. Current consultation; Infectious Disease, Cardiology, and Podiatry. The patient's serial labs are ordered which will be reviewed when the results are available. The patient's echo will be reviewed when available. EKG will be reviewed when available. Diagnostic labs daily has been ordered. The patient will continue on broad-spectrum antibiotics. At present, the patient's medications will be continued as per the MAR of today. The patient's overall prognosis is guarded to poor. Condition critical. Time spent is more than 35 minutes. The patient's [id number]-[id number] has been updated about the patient's condition, diagnosis, diagnostic test results. Overall guarded to poor prognosis. Time spent is more than 35 minutes. Dictated and electronically signed, not read. Manuel Law MD [id number]
--- NOTE | 2018-09-09 09:30 | CP.CCUPN ---
<KeiraChristopher - Last Filed: 09/09/18 17:12> CCU Subjective - Physician Review Subjective (Free Text): Christopher Crockett DO. Critical Care Progress note Patient seen and examined at bedside. She is intubated but awake and follow commands with no acute distress. No acute events overnight. CCU Objective - Vital Signs / Intake & Output Vital Signs (Last 4 hours): Vital Signs BP 09/09/18 09:04 113/58 L Intake and Output (Last 8hrs): Intake & Output 09/08/18 09/09/18 09/09/18 22:59 06:59 14:59 Intake Total 800 2632 160 Output Total 700 1400 Balance 100 1232 160 Weight 244 lb Intake: IV 800 2632 160 Left Hand 0 Right Internal Jugular 700 2372 Right Subclavian 0 Oral 0 0 Output: Urine 700 1400 Urethral (Alonzo) 700 1400 Other: Voiding Method Indwelling Catheter # Bowel Movements 0 0 - Physical Exam Physical Exam Limitations: Positive for: Altered Mental Status Head: Positive for: Atraumatic, Normocephalic Mouth: Positive for: Dry Nose (Internal): Positive for: Normal Inspection Neck: Positive for: Trachea Midline. Negative for: JVD, Bruit Respiratory/Chest: Positive for: Decreased Breath Sounds, Rales (Bilateral) Cardiovascular: Positive for: Regular Rate and Rhythm, Normal S1, S2. Negative for: Rub, Gallop Abdomen: Positive for: Normal Bowel Sounds. Negative for: Tenderness, Distention Breast/Axillary: Positive for: Erythema (Erythematous bilateral candidal rash to breast) Lower Extremity: Positive for: Edema (3+ pedal edema bilateral) Neurological: Positive for: GCS=15, Speech Normal Skin: Positive for: Rashes, Erythematous (bilateral candidal rash to groin, hips, abdomen) Psychiatric: Negative for: Alert - Medications Active Medications: Active Medications Generic Name Dose Route Start Last Admin Trade Name Freq PRN Reason Stop Dose Admin Acetaminophen 650 mg 09/08/18 14:22 Tylenol 325mg Tab PO Q6 PRN TEMP>=99.5F Acetaminophen 650 mg 09/08/18 14:22 Tylenol 650 Mg Supp RC Q6H PRN TEMP>=99.5F Allopurinol 100 mg 09/09/18 10:00 Zyloprim PO DAILY SABIHA Dextrose 0 ml 09/08/18 22:59 Dextrose 50% Inj IV STAT PRN Hypoglycemia Protocol Protocol Furosemide 40 mg 09/08/18 23:00 09/09/18 09:04 Lasix IVP 40 mg Q12 SABIHA Administration Propofol 1,000 mg in 100 mls @ 3.266 mls/hr 09/08/18 11:33 09/09/18 08:00 Diprivan IV 0 mcg/kg/min .Q24H PRN 0 mls/hr TITRATE PER MD ORDER Titration Protocol 5 MCG/KG/MIN Doxycycline Hyclate 100 mg/ 100 mls @ 100 mls/hr 09/08/18 22:00 09/08/18 21:07 Sodium Chloride IVPB 100 mls/hr Q12 SABIHA Administration Protocol Heparin Sodium/Sodium Chloride 25,000 units in 250 mls @ 19.922 mls/hr 09/08/18 16:40 09/09/18 07:13 Heparin 19264 Units/250ml 1/2 Normal Saline IV 13 units/kg/hr .[id number] PRN 14.388 mls/hr ADJUST RATE PER PROTOCOL Titration Protocol 18 UNITS/KG/HR Vancomycin HCl 1 gm in 250 mls @ 167 mls/hr 09/09/18 10:00 09/09/18 09:02 Vancomycin 1gm IVPB 167 mls/hr DAILY SABIHA Administration Protocol Meropenem 1 gm in 50 mls @ 100 mls/hr 09/08/18 22:00 09/09/18 09:03 Merrem Iv 1 Gm Premix IVPB 09/17/18 22:01 100 mls/hr Q12 SABIHA Administration Protocol Dextrose 1,000 mls @ 0 mls/hr 09/08/18 22:59 Dextrose 5% In Water 1000 Ml IV .Q0M PRN Hypoglycemia Protocol Protocol Per Protocol Insulin Human Lispro 0 units 09/08/18 23:01 09/09/18 06:14 Humalog High SC Not Given Q6H SABIHA Protocol Levalbuterol HCl 0.63 mg 09/08/18 20:00 09/09/18 07:25 Xopenex IH 0.63 mg [id number] SABIHA Administration Methylprednisolone 20 mg 09/09/18 08:15 09/09/18 08:58 Solu-Medrol IVP 20 mg Q12H SABIHA Administration Nicotine 1 patch 09/09/18 10:00 09/09/18 09:00 Nicoderm Cq TD 1 patch DAILY SABIHA Administration Nystatin 0 gm 09/08/18 18:00 09/09/18 05:17 Nystop Topical Powder TOP 1 pdr Q6 SABIHA Administration Nystatin 0 ea 09/08/18 23:00 09/09/18 09:14 Mycostatin Cream TOP 2 unit TID SABIHA Administration Ondansetron HCl 4 mg 09/08/18 14:22 Zofran Inj IVP Q4H PRN Nausea/Vomiting Pantoprazole Sodium 40 mg 09/08/18 22:00 09/09/18 09:00 Protonix Inj IVP 40 mg Q12 SABIHA Administration - Patient Studies Lab Studies: Lab Studies 09/09/18 09/09/18 09/09/18 Range/Units 06:47 06:47 05:58 WBC (4.5-11.0) 10^3/uL RBC (3.5-6.1) 10^6/uL Hgb (12.0-16.0) g/dL Hct (36.0-48.0) % MCV (80.0-105.0) fl MCH (25.0-35.0) pg MCHC (31.0-37.0) g/dl RDW (11.5-14.5) % Plt Count (120.0-450.0) 10^3/uL MPV (7.0-11.0) fl Neut % (Auto) (50.0-68.0) % Lymph % (Auto) (22.0-35.0) % [place] % (Auto) (1.0-6.0) % Eos % (Auto) (1.5-5.0) % Baso % (Auto) (0.0-3.0) % Lymph # (Auto) (1.2-3.4) [place] # (Auto) (0.1-0.6) Eos # (Auto) (0.0-0.7) Baso # (Auto) (0.0-2.0) K/mm3 Absolute Neuts (auto) (1.4-6.5) PT 15.7 H (9.4-12.5) SECONDS INR 1.39 APTT 81.3 H (26.9-38.3) Seconds D-Dimer, Quantitative (0-243) ng/mlDDU pCO2 (35-45) mm/Hg pO2 (30-55) mm/Hg HCO3 (21-28) mmol/L ABG pH (7.35-7.45) ABG Total CO2 (22-28) mmol.L ABG O2 Saturation (95-98) % ABG O2 Content (15-23) ML/dl ABG Base Excess (-2.0-3.0) mmol/L ABG Hemoglobin (11.7-17.4) g/dL ABG Carboxyhemoglobin (0.5-1.5) % POC ABG HHb (Measured) (0-5) % ABG Methemoglobin (0.0-3.0) % ABG O2 Capacity (16-24) mL/dl ABG Potassium (3.6-5.2) mmol/L VBG pH (7.32-7.43) VBG pCO2 (40-60) VBG HCO3 (21-28) mmol/l VBG Total CO2 (22-28) mmol.L VBG O2 Sat (Calc) (40-65) % VBG Base Excess (0.0-2.0) mmol/L VBG Potassium (3.6-5.2) mmol/L Hgb O2 Saturation (95.0-98.0) % Sodium 138 (132-148) mmol/L Chloride 100 (98-107) mmol/L Glucose (65-105) mg/dl Lactate (0.7-2.1) mmol/L Mechanical Rate FiO2 % Tidal Volume PEEP Crit Value Called To Crit Value Called By Blood Gas Notified Time Potassium 4.9 (3.6-5.0) mmol/L Carbon Dioxide 34 H (21-33) mmol/L Anion Gap 8 L (10-20) BUN 47 H (7-21) mg/dL Creatinine 1.0 (0.7-1.2) mg/dl Est GFR ( Amer) > 60 Est GFR (Non-Af Amer) 54 POC Glucose (mg/dL) 117 H (65-110) mg/dL Random Glucose 127 H (70-110) mg/dL Hemoglobin A1c (4.2-6.5) % Fructosamine (190-270) umol/L Uric Acid (2.5-6.2) mg/dL Calcium 8.4 (8.4-10.5) mg/dL Phosphorus 4.6 H (2.5-4.5) mg/dL Magnesium 1.8 (1.7-2.2) mg/dL Total Bilirubin 0.5 (0.2-1.3) mg/dL Direct Bilirubin 0.5 H (0.0-0.4) mg/dL AST 28 (14-36) U/L ALT 22 (7-56) U/L Alkaline Phosphatase 75 (38-126) U/L Total Creatine Kinase (35-230) U/L Troponin I ng/mL NT-Pro-B Natriuret Pep 38354 H (0-450) pg/mL Total Protein 5.6 L (5.8-8.3) g/dL Albumin 2.7 L (3.0-4.8) g/dL Globulin 2.9 gm/dL Albumin/Globulin Ratio 1.0 L (1.1-1.8) Triglycerides 121 (35-160) mg/dL Cholesterol 90 L (130-200) mg/dL LDL Cholesterol Direct 50 (0-129) mg/dL HDL Cholesterol 21 L (29-60) mg/dL Free T4 (0.78-2.19) ng/dL Thyroxine (T4) (5.5-11.0) ug/dL TSH 3rd Generation (0.46-4.68) mIU/mL Arterial Blood Potassium (3.6-5.2) mmol/L Venous Blood Potassium (3.6-5.2) mmol/L Urine Color (YELLOW) Urine Appearance (CLEAR) Urine pH (4.7-8.0) Ur Specific [place] (1.005-1.035) Urine Protein (<30 mg/dL) mg/dL Urine Glucose (UA) (NEGATIVE) mg/dL Urine Ketones (NEGATIVE) mg/dL Urine Blood (NEGATIVE) Urine Nitrate (NEGATIVE) Urine Bilirubin (NEGATIVE) Urine Urobilinogen (<1 E.U./dL) E.U./dL Ur Leukocyte Esterase (NEGATIVE) Jay/uL Urine RBC (0-2) /hpf Urine WBC (0-6) /hpf Ur Epithelial Cells (0-5) /hpf Hyaline Casts (NONE) /hpf Urine Opiates Screen (NEGATIVE) Urine Methadone Screen (NEGATIVE) Ur Barbiturates Screen (NEGATIVE) Ur Phencyclidine Scrn (NEGATIVE) Ur Amphetamines Screen (NEGATIVE) U Benzodiazepines Scrn (NEGATIVE) U Oth Cocaine Metabols (NEGATIVE) U Cannabinoids Screen (NEGATIVE) 09/09/18 09/09/18 09/09/18 Range/Units 05:55 05:35 00:40 WBC 9.5 (4.5-11.0) 10^3/uL RBC 5.26 (3.5-6.1) 10^6/uL Hgb 15.6 (12.0-16.0) g/dL Hct 50.2 H (36.0-48.0) % MCV 95.4 D (80.0-105.0) fl MCH 29.7 (25.0-35.0) pg MCHC 31.1 (31.0-37.0) g/dl RDW 14.6 H (11.5-14.5) % Plt Count 191 (120.0-450.0) 10^3/uL MPV 10.0 (7.0-11.0) fl Neut % (Auto) 89.8 H (50.0-68.0) % Lymph % (Auto) 6.3 L (22.0-35.0) % [place] % (Auto) 3.9 (1.0-6.0) % Eos % (Auto) 0.0 L (1.5-5.0) % Baso % (Auto) 0.0 (0.0-3.0) % Lymph # (Auto) 0.6 L (1.2-3.4) [place] # (Auto) 0.4 (0.1-0.6) Eos # (Auto) 0.0 (0.0-0.7) Baso # (Auto) 0.00 (0.0-2.0) K/mm3 Absolute Neuts (auto) 8.52 H (1.4-6.5) PT (9.4-12.5) SECONDS INR APTT 184.9 H* (26.9-38.3) Seconds D-Dimer, Quantitative (0-243) ng/mlDDU pCO2 52 H (35-45) mm/Hg pO2 63.0 L (30-55) mm/Hg HCO3 30.8 H (21-28) mmol/L ABG pH 7.38 (7.35-7.45) ABG Total CO2 32.4 H (22-28) mmol.L ABG O2 Saturation 94.2 L (95-98) % ABG O2 Content 19.7 (15-23) ML/dl ABG Base Excess 4.2 H (-2.0-3.0) mmol/L ABG Hemoglobin 15.4 (11.7-17.4) g/dL ABG Carboxyhemoglobin 2.3 H (0.5-1.5) % POC ABG HHb (Measured) 5.6 H (0-5) % ABG Methemoglobin 1.1 (0.0-3.0) % ABG O2 Capacity 20.9 (16-24) mL/dl ABG Potassium (3.6-5.2) mmol/L VBG pH (7.32-7.43) VBG pCO2 (40-60) VBG HCO3 (21-28) mmol/l VBG Total CO2 (22-28) mmol.L VBG O2 Sat (Calc) (40-65) % VBG Base Excess (0.0-2.0) mmol/L VBG Potassium (3.6-5.2) mmol/L Hgb O2 Saturation 91.0 L (95.0-98.0) % Sodium (132-148) mmol/L Chloride (98-107) mmol/L Glucose (65-105) mg/dl Lactate (0.7-2.1) mmol/L Mechanical Rate FiO2 80.0 % Tidal Volume PEEP Crit Value Called To Crit Value Called By Blood Gas Notified Time Potassium (3.6-5.0) mmol/L Carbon Dioxide (21-33) mmol/L Anion Gap (10-20) BUN (7-21) mg/dL Creatinine (0.7-1.2) mg/dl Est GFR ( Amer) Est GFR (Non-Af Amer) POC Glucose (mg/dL) (65-110) mg/dL Random Glucose (70-110) mg/dL Hemoglobin A1c (4.2-6.5) % Fructosamine (190-270) umol/L Uric Acid (2.5-6.2) mg/dL Calcium (8.4-10.5) mg/dL Phosphorus (2.5-4.5) mg/dL Magnesium (1.7-2.2) mg/dL Total Bilirubin (0.2-1.3) mg/dL Direct Bilirubin (0.0-0.4) mg/dL AST (14-36) U/L ALT (7-56) U/L Alkaline Phosphatase (38-126) U/L Total Creatine Kinase (35-230) U/L Troponin I ng/mL NT-Pro-B Natriuret Pep (0-450) pg/mL Total Protein (5.8-8.3) g/dL Albumin (3.0-4.8) g/dL Globulin gm/dL Albumin/Globulin Ratio (1.1-1.8) Triglycerides (35-160) mg/dL Cholesterol (130-200) mg/dL LDL Cholesterol Direct (0-129) mg/dL HDL Cholesterol (29-60) mg/dL Free T4 (0.78-2.19) ng/dL Thyroxine (T4) (5.5-11.0) ug/dL TSH 3rd Generation (0.46-4.68) mIU/mL Arterial Blood Potassium (3.6-5.2) mmol/L Venous Blood Potassium (3.6-5.2) mmol/L Urine Color (YELLOW) Urine Appearance (CLEAR) Urine pH (4.7-8.0) Ur Specific [place] (1.005-1.035) Urine Protein (<30 mg/dL) mg/dL Urine Glucose (UA) (NEGATIVE) mg/dL Urine Ketones (NEGATIVE) mg/dL Urine Blood (NEGATIVE) Urine Nitrate (NEGATIVE) Urine Bilirubin (NEGATIVE) Urine Urobilinogen (<1 E.U./dL) E.U./dL Ur Leukocyte Esterase (NEGATIVE) Jay/uL Urine RBC (0-2) /hpf Urine WBC (0-6) /hpf Ur Epithelial Cells (0-5) /hpf Hyaline Casts (NONE) /hpf Urine Opiates Screen (NEGATIVE) Urine Methadone Screen (NEGATIVE) Ur Barbiturates Screen (NEGATIVE) Ur Phencyclidine Scrn (NEGATIVE) Ur Amphetamines Screen (NEGATIVE) U Benzodiazepines Scrn (NEGATIVE) U Oth Cocaine Metabols (NEGATIVE) U Cannabinoids Screen (NEGATIVE) 09/08/18 09/08/18 09/08/18 Range/Units 23:52 23:30 23:15 WBC (4.5-11.0) 10^3/uL RBC (3.5-6.1) 10^6/uL Hgb (12.0-16.0) g/dL Hct (36.0-48.0) % MCV (80.0-105.0) fl MCH (25.0-35.0) pg MCHC (31.0-37.0) g/dl RDW (11.5-14.5) % Plt Count (120.0-450.0) 10^3/uL MPV (7.0-11.0) fl Neut % (Auto) (50.0-68.0) % Lymph % (Auto) (22.0-35.0) % [place] % (Auto) (1.0-6.0) % Eos % (Auto) (1.5-5.0) % Baso % (Auto) (0.0-3.0) % Lymph # (Auto) (1.2-3.4) [place] # (Auto) (0.1-0.6) Eos # (Auto) (0.0-0.7) Baso # (Auto) (0.0-2.0) K/mm3 Absolute Neuts (auto) (1.4-6.5) PT (9.4-12.5) SECONDS INR APTT (26.9-38.3) Seconds D-Dimer, Quantitative (0-243) ng/mlDDU pCO2 (35-45) mm/Hg pO2 (30-55) mm/Hg HCO3 (21-28) mmol/L ABG pH (7.35-7.45) ABG Total CO2 (22-28) mmol.L ABG O2 Saturation (95-98) % ABG O2 Content (15-23) ML/dl ABG Base Excess (-2.0-3.0) mmol/L ABG Hemoglobin (11.7-17.4) g/dL ABG Carboxyhemoglobin (0.5-1.5) % POC ABG HHb (Measured) (0-5) % ABG Methemoglobin (0.0-3.0) % ABG O2 Capacity (16-24) mL/dl ABG Potassium (3.6-5.2) mmol/L VBG pH (7.32-7.43) VBG pCO2 (40-60) VBG HCO3 (21-28) mmol/l VBG Total CO2 (22-28) mmol.L VBG O2 Sat (Calc) (40-65) % VBG Base Excess (0.0-2.0) mmol/L VBG Potassium (3.6-5.2) mmol/L Hgb O2 Saturation (95.0-98.0) % Sodium (132-148) mmol/L Chloride (98-107) mmol/L Glucose (65-105) mg/dl Lactate (0.7-2.1) mmol/L Mechanical Rate FiO2 % Tidal Volume PEEP Crit Value Called To Crit Value Called By Blood Gas Notified Time Potassium (3.6-5.0) mmol/L Carbon Dioxide (21-33) mmol/L Anion Gap (10-20) BUN (7-21) mg/dL Creatinine (0.7-1.2) mg/dl Est GFR ( Amer) Est GFR (Non-Af Amer) POC Glucose (mg/dL) 154 H (65-110) mg/dL Random Glucose (70-110) mg/dL Hemoglobin A1c (4.2-6.5) % Fructosamine (190-270) umol/L Uric Acid (2.5-6.2) mg/dL Calcium (8.4-10.5) mg/dL Phosphorus (2.5-4.5) mg/dL Magnesium (1.7-2.2) mg/dL Total Bilirubin (0.2-1.3) mg/dL Direct Bilirubin (0.0-0.4) mg/dL AST (14-36) U/L ALT (7-56) U/L Alkaline Phosphatase (38-126) U/L Total Creatine Kinase 79 (35-230) U/L Troponin I 0.08 D ng/mL NT-Pro-B Natriuret Pep (0-450) pg/mL Total Protein (5.8-8.3) g/dL Albumin (3.0-4.8) g/dL Globulin gm/dL Albumin/Globulin Ratio (1.1-1.8) Triglycerides (35-160) mg/dL Cholesterol (130-200) mg/dL LDL Cholesterol Direct (0-129) mg/dL HDL Cholesterol (29-60) mg/dL Free T4 (0.78-2.19) ng/dL Thyroxine (T4) (5.5-11.0) ug/dL TSH 3rd Generation (0.46-4.68) mIU/mL Arterial Blood Potassium (3.6-5.2) mmol/L Venous Blood Potassium (3.6-5.2) mmol/L Urine Color (YELLOW) Urine Appearance (CLEAR) Urine pH (4.7-8.0) Ur Specific [place] (1.005-1.035) Urine Protein (<30 mg/dL) mg/dL Urine Glucose (UA) (NEGATIVE) mg/dL Urine Ketones (NEGATIVE) mg/dL Urine Blood (NEGATIVE) Urine Nitrate (NEGATIVE) Urine Bilirubin (NEGATIVE) Urine Urobilinogen (<1 E.U./dL) E.U./dL Ur Leukocyte Esterase (NEGATIVE) Jay/uL Urine RBC (0-2) /hpf Urine WBC (0-6) /hpf Ur Epithelial Cells (0-5) /hpf Hyaline Casts (NONE) /hpf Urine Opiates Screen Negative (NEGATIVE) Urine Methadone Screen Negative (NEGATIVE) Ur Barbiturates Screen Negative (NEGATIVE) Ur Phencyclidine Scrn Negative (NEGATIVE) Ur Amphetamines Screen Negative (NEGATIVE) U Benzodiazepines Scrn Negative (NEGATIVE) U Oth Cocaine Metabols Negative (NEGATIVE) U Cannabinoids Screen Negative (NEGATIVE) 09/08/18 09/08/18 09/08/18 Range/Units 20:10 19:40 19:40 WBC (4.5-11.0) 10^3/uL RBC (3.5-6.1) 10^6/uL Hgb (12.0-16.0) g/dL Hct (36.0-48.0) % MCV (80.0-105.0) fl MCH (25.0-35.0) pg MCHC (31.0-37.0) g/dl RDW (11.5-14.5) % Plt Count (120.0-450.0) 10^3/uL MPV (7.0-11.0) fl Neut % (Auto) (50.0-68.0) % Lymph % (Auto) (22.0-35.0) % [place] % (Auto) (1.0-6.0) % Eos % (Auto) (1.5-5.0) % Baso % (Auto) (0.0-3.0) % Lymph # (Auto) (1.2-3.4) [place] # (Auto) (0.1-0.6) Eos # (Auto) (0.0-0.7) Baso # (Auto) (0.0-2.0) K/mm3 Absolute Neuts (auto) (1.4-6.5) PT (9.4-12.5) SECONDS INR APTT (26.9-38.3) Seconds D-Dimer, Quantitative 1600 H (0-243) ng/mlDDU pCO2 38 (35-45) mm/Hg pO2 98.0 (30-55) mm/Hg HCO3 27.7 (21-28) mmol/L ABG pH 7.47 H (7.35-7.45) ABG Total CO2 28.9 H (22-28) mmol.L ABG O2 Saturation 99.0 H (95-98) % ABG O2 Content 20.9 (15-23) ML/dl ABG Base Excess 3.9 H (-2.0-3.0) mmol/L ABG Hemoglobin 15.5 (11.7-17.4) g/dL ABG Carboxyhemoglobin 2.2 H (0.5-1.5) % POC ABG HHb (Measured) 1.0 (0-5) % ABG Methemoglobin 1.2 (0.0-3.0) % ABG O2 Capacity 21.1 (16-24) mL/dl ABG Potassium (3.6-5.2) mmol/L VBG pH (7.32-7.43) VBG pCO2 (40-60) VBG HCO3 (21-28) mmol/l VBG Total CO2 (22-28) mmol.L VBG O2 Sat (Calc) (40-65) % VBG Base Excess (0.0-2.0) mmol/L VBG Potassium (3.6-5.2) mmol/L Hgb O2 Saturation 95.6 (95.0-98.0) % Sodium (132-148) mmol/L Chloride (98-107) mmol/L Glucose (65-105) mg/dl Lactate (0.7-2.1) mmol/L Mechanical Rate FiO2 80.0 % Tidal Volume PEEP Crit Value Called To Crit Value Called By Blood Gas Notified Time Potassium (3.6-5.0) mmol/L Carbon Dioxide (21-33) mmol/L Anion Gap (10-20) BUN (7-21) mg/dL Creatinine (0.7-1.2) mg/dl Est GFR ( Amer) Est GFR (Non-Af Amer) POC Glucose (mg/dL) (65-110) mg/dL Random Glucose (70-110) mg/dL Hemoglobin A1c (4.2-6.5) % Fructosamine (190-270) umol/L Uric Acid (2.5-6.2) mg/dL Calcium (8.4-10.5) mg/dL Phosphorus (2.5-4.5) mg/dL Magnesium (1.7-2.2) mg/dL Total Bilirubin (0.2-1.3) mg/dL Direct Bilirubin (0.0-0.4) mg/dL AST (14-36) U/L ALT (7-56) U/L Alkaline Phosphatase (38-126) U/L Total Creatine Kinase 123 (35-230) U/L Troponin I 0.13 H* ng/mL NT-Pro-B Natriuret Pep (0-450) pg/mL Total Protein (5.8-8.3) g/dL Albumin (3.0-4.8) g/dL Globulin gm/dL Albumin/Globulin Ratio (1.1-1.8) Triglycerides (35-160) mg/dL Cholesterol (130-200) mg/dL LDL Cholesterol Direct (0-129) mg/dL HDL Cholesterol (29-60) mg/dL Free T4 (0.78-2.19) ng/dL Thyroxine (T4) (5.5-11.0) ug/dL TSH 3rd Generation (0.46-4.68) mIU/mL Arterial Blood Potassium (3.6-5.2) mmol/L Venous Blood Potassium (3.6-5.2) mmol/L Urine Color (YELLOW) Urine Appearance (CLEAR) Urine pH (4.7-8.0) Ur Specific [place] (1.005-1.035) Urine Protein (<30 mg/dL) mg/dL Urine Glucose (UA) (NEGATIVE) mg/dL Urine Ketones (NEGATIVE) mg/dL Urine Blood (NEGATIVE) Urine Nitrate (NEGATIVE) Urine Bilirubin (NEGATIVE) Urine Urobilinogen (<1 E.U./dL) E.U./dL Ur Leukocyte Esterase (NEGATIVE) Jay/uL Urine RBC (0-2) /hpf Urine WBC (0-6) /hpf Ur Epithelial Cells (0-5) /hpf Hyaline Casts (NONE) /hpf Urine Opiates Screen (NEGATIVE) Urine Methadone Screen (NEGATIVE) Ur Barbiturates Screen (NEGATIVE) Ur Phencyclidine Scrn (NEGATIVE) Ur Amphetamines Screen (NEGATIVE) U Benzodiazepines Scrn (NEGATIVE) U Oth Cocaine Metabols (NEGATIVE) U Cannabinoids Screen (NEGATIVE) 09/08/18 09/08/18 09/08/18 Range/Units 19:40 19:40 13:25 WBC (4.5-11.0) 10^3/uL RBC (3.5-6.1) 10^6/uL Hgb (12.0-16.0) g/dL Hct (36.0-48.0) % MCV (80.0-105.0) fl MCH (25.0-35.0) pg MCHC (31.0-37.0) g/dl RDW (11.5-14.5) % Plt Count (120.0-450.0) 10^3/uL MPV (7.0-11.0) fl Neut % (Auto) (50.0-68.0) % Lymph % (Auto) (22.0-35.0) % [place] % (Auto) (1.0-6.0) % Eos % (Auto) (1.5-5.0) % Baso % (Auto) (0.0-3.0) % Lymph # (Auto) (1.2-3.4) [place] # (Auto) (0.1-0.6) Eos # (Auto) (0.0-0.7) Baso # (Auto) (0.0-2.0) K/mm3 Absolute Neuts (auto) (1.4-6.5) PT (9.4-12.5) SECONDS INR APTT (26.9-38.3) Seconds D-Dimer, Quantitative (0-243) ng/mlDDU pCO2 (35-45) mm/Hg pO2 (30-55) mm/Hg HCO3 (21-28) mmol/L ABG pH (7.35-7.45) ABG Total CO2 (22-28) mmol.L ABG O2 Saturation (95-98) % ABG O2 Content (15-23) ML/dl ABG Base Excess (-2.0-3.0) mmol/L ABG Hemoglobin (11.7-17.4) g/dL ABG Carboxyhemoglobin (0.5-1.5) % POC ABG HHb (Measured) (0-5) % ABG Methemoglobin (0.0-3.0) % ABG O2 Capacity (16-24) mL/dl ABG Potassium (3.6-5.2) mmol/L VBG pH (7.32-7.43) VBG pCO2 (40-60) VBG HCO3 (21-28) mmol/l VBG Total CO2 (22-28) mmol.L VBG O2 Sat (Calc) (40-65) % VBG Base Excess (0.0-2.0) mmol/L VBG Potassium (3.6-5.2) mmol/L Hgb O2 Saturation (95.0-98.0) % Sodium (132-148) mmol/L Chloride (98-107) mmol/L Glucose (65-105) mg/dl Lactate (0.7-2.1) mmol/L Mechanical Rate FiO2 % Tidal Volume PEEP Crit Value Called To Crit Value Called By Blood Gas Notified Time Potassium (3.6-5.0) mmol/L Carbon Dioxide (21-33) mmol/L Anion Gap (10-20) BUN (7-21) mg/dL Creatinine (0.7-1.2) mg/dl Est GFR ( Amer) Est GFR (Non-Af Amer) POC Glucose (mg/dL) (65-110) mg/dL Random Glucose (70-110) mg/dL Hemoglobin A1c (4.2-6.5) % Fructosamine 188 L (190-270) umol/L Uric Acid (2.5-6.2) mg/dL Calcium (8.4-10.5) mg/dL Phosphorus (2.5-4.5) mg/dL Magnesium (1.7-2.2) mg/dL Total Bilirubin (0.2-1.3) mg/dL Direct Bilirubin (0.0-0.4) mg/dL AST (14-36) U/L ALT (7-56) U/L Alkaline Phosphatase (38-126) U/L Total Creatine Kinase (35-230) U/L Troponin I ng/mL NT-Pro-B Natriuret Pep (0-450) pg/mL Total Protein (5.8-8.3) g/dL Albumin (3.0-4.8) g/dL Globulin gm/dL Albumin/Globulin Ratio (1.1-1.8) Triglycerides (35-160) mg/dL Cholesterol (130-200) mg/dL LDL Cholesterol Direct (0-129) mg/dL HDL Cholesterol (29-60) mg/dL Free T4 0.83 (0.78-2.19) ng/dL Thyroxine (T4) 3.4 L (5.5-11.0) ug/dL TSH 3rd Generation 2.48 (0.46-4.68) mIU/mL Arterial Blood Potassium (3.6-5.2) mmol/L Venous Blood Potassium (3.6-5.2) mmol/L Urine Color Yellow (YELLOW) Urine Appearance Turbid (CLEAR) Urine pH 6.0 (4.7-8.0) Ur Specific [place] 1.020 (1.005-1.035) Urine Protein 30 H (<30 mg/dL) mg/dL Urine Glucose (UA) Negative (NEGATIVE) mg/dL Urine Ketones Negative (NEGATIVE) mg/dL Urine Blood Negative (NEGATIVE) Urine Nitrate Negative (NEGATIVE) Urine Bilirubin Small H (NEGATIVE) Urine Urobilinogen 1.0 H (<1 E.U./dL) E.U./dL Ur Leukocyte Esterase Negative (NEGATIVE) Jay/uL Urine RBC 5 - 10 H (0-2) /hpf Urine WBC None (0-6) /hpf Ur Epithelial Cells 3 - 4 (0-5) /hpf Hyaline Casts 0 - 2 (NONE) /hpf Urine Opiates Screen (NEGATIVE) Urine Methadone Screen (NEGATIVE) Ur Barbiturates Screen (NEGATIVE) Ur Phencyclidine Scrn (NEGATIVE) Ur Amphetamines Screen (NEGATIVE) U Benzodiazepines Scrn (NEGATIVE) U Oth Cocaine Metabols (NEGATIVE) U Cannabinoids Screen (NEGATIVE) 09/08/18 09/08/18 09/08/18 Range/Units 13:15 12:50 12:35 WBC (4.5-11.0) 10^3/uL RBC (3.5-6.1) 10^6/uL Hgb (12.0-16.0) g/dL Hct (36.0-48.0) % MCV (80.0-105.0) fl MCH (25.0-35.0) pg MCHC (31.0-37.0) g/dl RDW (11.5-14.5) % Plt Count (120.0-450.0) 10^3/uL MPV (7.0-11.0) fl Neut % (Auto) (50.0-68.0) % Lymph % (Auto) (22.0-35.0) % [place] % (Auto) (1.0-6.0) % Eos % (Auto) (1.5-5.0) % Baso % (Auto) (0.0-3.0) % Lymph # (Auto) (1.2-3.4) [place] # (Auto) (0.1-0.6) Eos # (Auto) (0.0-0.7) Baso # (Auto) (0.0-2.0) K/mm3 Absolute Neuts (auto) (1.4-6.5) PT (9.4-12.5) SECONDS INR APTT (26.9-38.3) Seconds D-Dimer, Quantitative (0-243) ng/mlDDU pCO2 73 H* (35-45) mm/Hg pO2 108.0 H (30-55) mm/Hg HCO3 33.5 H (21-28) mmol/L ABG pH 7.27 L (7.35-7.45) ABG Total CO2 35.7 H (22-28) mmol.L ABG O2 Saturation 98.4 H (95-98) % ABG O2 Content (15-23) ML/dl ABG Base Excess 4.2 H (-2.0-3.0) mmol/L ABG Hemoglobin (11.7-17.4) g/dL ABG Carboxyhemoglobin (0.5-1.5) % POC ABG HHb (Measured) (0-5) % ABG Methemoglobin (0.0-3.0) % ABG O2 Capacity (16-24) mL/dl ABG Potassium 5.1 (3.6-5.2) mmol/L VBG pH (7.32-7.43) VBG pCO2 (40-60) VBG HCO3 (21-28) mmol/l VBG Total CO2 (22-28) mmol.L VBG O2 Sat (Calc) (40-65) % VBG Base Excess (0.0-2.0) mmol/L VBG Potassium (3.6-5.2) mmol/L Hgb O2 Saturation (95.0-98.0) % Sodium 139 136.0 (132-148) mmol/L Chloride 99 102.0 (98-107) mmol/L Glucose 120 H (65-105) mg/dl Lactate 1.2 (0.7-2.1) mmol/L Mechanical Rate 18 FiO2 100.0 % Tidal Volume 400 PEEP 5 Crit Value Called To Renee hannon Crit Value Called By [id number] Blood Gas Notified Time 1300 Potassium 5.4 H (3.6-5.0) mmol/L Carbon Dioxide 35 H (21-33) mmol/L Anion Gap 11 (10-20) BUN 47 H (7-21) mg/dL Creatinine 1.2 (0.7-1.2) mg/dl Est GFR ( Amer) 53 Est GFR (Non-Af Amer) 44 POC Glucose (mg/dL) (65-110) mg/dL Random Glucose 115 H (70-110) mg/dL Hemoglobin A1c (4.2-6.5) % Fructosamine (190-270) umol/L Uric Acid 8.0 H (2.5-6.2) mg/dL Calcium 9.0 (8.4-10.5) mg/dL Phosphorus 5.8 H (2.5-4.5) mg/dL Magnesium 1.9 (1.7-2.2) mg/dL Total Bilirubin 1.0 (0.2-1.3) mg/dL Direct Bilirubin (0.0-0.4) mg/dL AST 36 (14-36) U/L ALT 25 (7-56) U/L Alkaline Phosphatase 92 (38-126) U/L Total Creatine Kinase 152 (35-230) U/L Troponin I 0.11 ng/mL NT-Pro-B Natriuret Pep 37779 H (0-450) pg/mL Total Protein 6.6 (5.8-8.3) g/dL Albumin 3.2 (3.0-4.8) g/dL Globulin 3.4 gm/dL Albumin/Globulin Ratio 1.0 L (1.1-1.8) Triglycerides (35-160) mg/dL Cholesterol (130-200) mg/dL LDL Cholesterol Direct (0-129) mg/dL HDL Cholesterol (29-60) mg/dL Free T4 (0.78-2.19) ng/dL Thyroxine (T4) (5.5-11.0) ug/dL TSH 3rd Generation (0.46-4.68) mIU/mL Arterial Blood Potassium 5.1 (3.6-5.2) mmol/L Venous Blood Potassium (3.6-5.2) mmol/L Urine Color (YELLOW) Urine Appearance (CLEAR) Urine pH (4.7-8.0) Ur Specific [place] (1.005-1.035) Urine Protein (<30 mg/dL) mg/dL Urine Glucose (UA) (NEGATIVE) mg/dL Urine Ketones (NEGATIVE) mg/dL Urine Blood (NEGATIVE) Urine Nitrate (NEGATIVE) Urine Bilirubin (NEGATIVE) Urine Urobilinogen (<1 E.U./dL) E.U./dL Ur Leukocyte Esterase (NEGATIVE) Jay/uL Urine RBC (0-2) /hpf Urine WBC (0-6) /hpf Ur Epithelial Cells (0-5) /hpf Hyaline Casts (NONE) /hpf Urine Opiates Screen (NEGATIVE) Urine Methadone Screen (NEGATIVE) Ur Barbiturates Screen (NEGATIVE) Ur Phencyclidine Scrn (NEGATIVE) Ur Amphetamines Screen (NEGATIVE) U Benzodiazepines Scrn (NEGATIVE) U Oth Cocaine Metabols (NEGATIVE) U Cannabinoids Screen (NEGATIVE) 09/08/18 09/08/18 09/08/18 Range/Units 12:30 12:00 12:00 WBC (4.5-11.0) 10^3/uL RBC (3.5-6.1) 10^6/uL Hgb (12.0-16.0) g/dL Hct (36.0-48.0) % MCV (80.0-105.0) fl MCH (25.0-35.0) pg MCHC (31.0-37.0) g/dl RDW (11.5-14.5) % Plt Count (120.0-450.0) 10^3/uL MPV (7.0-11.0) fl Neut % (Auto) (50.0-68.0) % Lymph % (Auto) (22.0-35.0) % [place] % (Auto) (1.0-6.0) % Eos % (Auto) (1.5-5.0) % Baso % (Auto) (0.0-3.0) % Lymph # (Auto) (1.2-3.4) [place] # (Auto) (0.1-0.6) Eos # (Auto) (0.0-0.7) Baso # (Auto) (0.0-2.0) K/mm3 Absolute Neuts (auto) (1.4-6.5) PT 14.9 H (9.4-12.5) SECONDS INR 1.32 APTT 34.5 (26.9-38.3) Seconds D-Dimer, Quantitative (0-243) ng/mlDDU pCO2 (35-45) mm/Hg pO2 52 (30-55) mm/Hg HCO3 (21-28) mmol/L ABG pH (7.35-7.45) ABG Total CO2 (22-28) mmol.L ABG O2 Saturation (95-98) % ABG O2 Content (15-23) ML/dl ABG Base Excess (-2.0-3.0) mmol/L ABG Hemoglobin (11.7-17.4) g/dL ABG Carboxyhemoglobin (0.5-1.5) % POC ABG HHb (Measured) (0-5) % ABG Methemoglobin (0.0-3.0) % ABG O2 Capacity (16-24) mL/dl ABG Potassium (3.6-5.2) mmol/L VBG pH 7.20 L (7.32-7.43) VBG pCO2 90.0 H* (40-60) VBG HCO3 35.2 H (21-28) mmol/l VBG Total CO2 38.0 H (22-28) mmol.L VBG O2 Sat (Calc) 86.2 H (40-65) % VBG Base Excess 4.0 H (0.0-2.0) mmol/L VBG Potassium 5.5 H (3.6-5.2) mmol/L Hgb O2 Saturation (95.0-98.0) % Sodium 137.0 (132-148) mmol/L Chloride 100.0 (98-107) mmol/L Glucose 128 H (65-105) mg/dl Lactate 1.7 (0.7-2.1) mmol/L Mechanical Rate FiO2 21.0 % Tidal Volume PEEP Crit Value Called To Renee hannon Crit Value Called By [id number] Blood Gas Notified Time 1215 Potassium (3.6-5.0) mmol/L Carbon Dioxide (21-33) mmol/L Anion Gap (10-20) BUN (7-21) mg/dL Creatinine (0.7-1.2) mg/dl Est GFR ( Amer) Est GFR (Non-Af Amer) POC Glucose (mg/dL) (65-110) mg/dL Random Glucose (70-110) mg/dL Hemoglobin A1c 6.8 H (4.2-6.5) % Fructosamine (190-270) umol/L Uric Acid (2.5-6.2) mg/dL Calcium (8.4-10.5) mg/dL Phosphorus (2.5-4.5) mg/dL Magnesium (1.7-2.2) mg/dL Total Bilirubin (0.2-1.3) mg/dL Direct Bilirubin (0.0-0.4) mg/dL AST (14-36) U/L ALT (7-56) U/L Alkaline Phosphatase (38-126) U/L Total Creatine Kinase (35-230) U/L Troponin I ng/mL NT-Pro-B Natriuret Pep (0-450) pg/mL Total Protein (5.8-8.3) g/dL Albumin (3.0-4.8) g/dL Globulin gm/dL Albumin/Globulin Ratio (1.1-1.8) Triglycerides (35-160) mg/dL Cholesterol (130-200) mg/dL LDL Cholesterol Direct (0-129) mg/dL HDL Cholesterol (29-60) mg/dL Free T4 (0.78-2.19) ng/dL Thyroxine (T4) (5.5-11.0) ug/dL TSH 3rd Generation (0.46-4.68) mIU/mL Arterial Blood Potassium (3.6-5.2) mmol/L Venous Blood Potassium 5.5 H (3.6-5.2) mmol/L Urine Color (YELLOW) Urine Appearance (CLEAR) Urine pH (4.7-8.0) Ur Specific [place] (1.005-1.035) Urine Protein (<30 mg/dL) mg/dL Urine Glucose (UA) (NEGATIVE) mg/dL Urine Ketones (NEGATIVE) mg/dL Urine Blood (NEGATIVE) Urine Nitrate (NEGATIVE) Urine Bilirubin (NEGATIVE) Urine Urobilinogen (<1 E.U./dL) E.U./dL Ur Leukocyte Esterase (NEGATIVE) [place]/uL Urine RBC (0-2) /hpf Urine WBC (0-6) /hpf Ur Epithelial Cells (0-5) /hpf Hyaline Casts (NONE) /hpf Urine Opiates Screen (NEGATIVE) Urine Methadone Screen (NEGATIVE) Ur Barbiturates Screen (NEGATIVE) Ur Phencyclidine Scrn (NEGATIVE) Ur Amphetamines Screen (NEGATIVE) U Benzodiazepines Scrn (NEGATIVE) U Oth Cocaine Metabols (NEGATIVE) U Cannabinoids Screen (NEGATIVE) 09/08/18 Range/Units 12:00 WBC 10.9 (4.5-11.0) 10^3/uL RBC 5.58 (3.5-6.1) 10^6/uL Hgb 17.0 H (12.0-16.0) g/dL Hct 55.5 H* (36.0-48.0) % MCV 99.5 (80.0-105.0) fl MCH 30.5 (25.0-35.0) pg MCHC 30.6 L (31.0-37.0) g/dl RDW 14.6 H (11.5-14.5) % Plt Count 228 (120.0-450.0) 10^3/uL MPV 10.3 (7.0-11.0) fl Neut % (Auto) 86.6 H (50.0-68.0) % Lymph % (Auto) 6.7 L (22.0-35.0) % [place] % (Auto) 6.5 H (1.0-6.0) % Eos % (Auto) 0.0 L (1.5-5.0) % Baso % (Auto) 0.2 (0.0-3.0) % Lymph # (Auto) 0.7 L (1.2-3.4) [place] # (Auto) 0.7 H (0.1-0.6) Eos # (Auto) 0.0 (0.0-0.7) Baso # (Auto) 0.02 (0.0-2.0) K/mm3 Absolute Neuts (auto) 9.40 H (1.4-6.5) PT (9.4-12.5) SECONDS INR APTT (26.9-38.3) Seconds D-Dimer, Quantitative (0-243) ng/mlDDU pCO2 (35-45) mm/Hg pO2 (30-55) mm/Hg HCO3 (21-28) mmol/L ABG pH (7.35-7.45) ABG Total CO2 (22-28) mmol.L ABG O2 Saturation (95-98) % ABG O2 Content (15-23) ML/dl ABG Base Excess (-2.0-3.0) mmol/L ABG Hemoglobin (11.7-17.4) g/dL ABG Carboxyhemoglobin (0.5-1.5) % POC ABG HHb (Measured) (0-5) % ABG Methemoglobin (0.0-3.0) % ABG O2 Capacity (16-24) mL/dl ABG Potassium (3.6-5.2) mmol/L VBG pH (7.32-7.43) VBG pCO2 (40-60) VBG HCO3 (21-28) mmol/l VBG Total CO2 (22-28) mmol.L VBG O2 Sat (Calc) (40-65) % VBG Base Excess (0.0-2.0) mmol/L VBG Potassium (3.6-5.2) mmol/L Hgb O2 Saturation (95.0-98.0) % Sodium (132-148) mmol/L Chloride (98-107) mmol/L Glucose (65-105) mg/dl Lactate (0.7-2.1) mmol/L Mechanical Rate FiO2 % Tidal Volume PEEP Crit Value Called To Crit Value Called By Blood Gas Notified Time Potassium (3.6-5.0) mmol/L Carbon Dioxide (21-33) mmol/L Anion Gap (10-20) BUN (7-21) mg/dL Creatinine (0.7-1.2) mg/dl Est GFR ( Amer) Est GFR (Non-Af Amer) POC Glucose (mg/dL) (65-110) mg/dL Random Glucose (70-110) mg/dL Hemoglobin A1c (4.2-6.5) % Fructosamine (190-270) umol/L Uric Acid (2.5-6.2) mg/dL Calcium (8.4-10.5) mg/dL Phosphorus (2.5-4.5) mg/dL Magnesium (1.7-2.2) mg/dL Total Bilirubin (0.2-1.3) mg/dL Direct Bilirubin (0.0-0.4) mg/dL AST (14-36) U/L ALT (7-56) U/L Alkaline Phosphatase (38-126) U/L Total Creatine Kinase (35-230) U/L Troponin I ng/mL NT-Pro-B Natriuret Pep (0-450) pg/mL Total Protein (5.8-8.3) g/dL Albumin (3.0-4.8) g/dL Globulin gm/dL Albumin/Globulin Ratio (1.1-1.8) Triglycerides (35-160) mg/dL Cholesterol (130-200) mg/dL LDL Cholesterol Direct (0-129) mg/dL HDL Cholesterol (29-60) mg/dL Free T4 (0.78-2.19) ng/dL Thyroxine (T4) (5.5-11.0) ug/dL TSH 3rd Generation (0.46-4.68) mIU/mL Arterial Blood Potassium (3.6-5.2) mmol/L Venous Blood Potassium (3.6-5.2) mmol/L Urine Color (YELLOW) Urine Appearance (CLEAR) Urine pH (4.7-8.0) Ur Specific [place] (1.005-1.035) Urine Protein (<30 mg/dL) mg/dL Urine Glucose (UA) (NEGATIVE) mg/dL Urine Ketones (NEGATIVE) mg/dL Urine Blood (NEGATIVE) Urine Nitrate (NEGATIVE) Urine Bilirubin (NEGATIVE) Urine Urobilinogen (<1 E.U./dL) E.U./dL Ur Leukocyte Esterase (NEGATIVE) [place]/uL Urine RBC (0-2) /hpf Urine WBC (0-6) /hpf Ur Epithelial Cells (0-5) /hpf Hyaline Casts (NONE) /hpf Urine Opiates Screen (NEGATIVE) Urine Methadone Screen (NEGATIVE) Ur Barbiturates Screen (NEGATIVE) Ur Phencyclidine Scrn (NEGATIVE) Ur Amphetamines Screen (NEGATIVE) U Benzodiazepines Scrn (NEGATIVE) U Oth Cocaine Metabols (NEGATIVE) U Cannabinoids Screen (NEGATIVE) Laboratory Results - last 24 hr 09/08/18 09/08/18 09/08/18 12:00 12:00 12:00 WBC 10.9 RBC 5.58 Hgb 17.0 H Hct 55.5 H* MCV 99.5 MCH 30.5 MCHC 30.6 L RDW 14.6 H Plt Count 228 MPV 10.3 Neut % (Auto) 86.6 H Lymph % (Auto) 6.7 L [place] % (Auto) 6.5 H Eos % (Auto) 0.0 L Baso % (Auto) 0.2 Lymph # (Auto) 0.7 L [place] # (Auto) 0.7 H Eos # (Auto) 0.0 Baso # (Auto) 0.02 Absolute Neuts (auto) 9.40 H PT 14.9 H INR 1.32 APTT 34.5 D-Dimer, Quantitative pCO2 pO2 52 HCO3 ABG pH ABG Total CO2 ABG O2 Saturation ABG O2 Content ABG Base Excess ABG Hemoglobin ABG Carboxyhemoglobin POC ABG HHb (Measured) ABG Methemoglobin ABG O2 Capacity ABG Potassium VBG pH 7.20 L VBG pCO2 90.0 H* VBG HCO3 35.2 H VBG Total CO2 38.0 H VBG O2 Sat (Calc) 86.2 H VBG Base Excess 4.0 H VBG Potassium 5.5 H Hgb O2 Saturation Sodium 137.0 Chloride 100.0 Glucose 128 H Lactate 1.7 Mechanical Rate FiO2 21.0 Tidal Volume PEEP Crit Value Called To Renee hannon Crit Value Called By 3769 Blood Gas Notified Time 1215 Potassium Carbon Dioxide Anion Gap BUN Creatinine Est GFR ( Amer) Est GFR (Non-Af Amer) POC Glucose (mg/dL) Random Glucose Hemoglobin A1c Fructosamine Uric Acid Calcium Phosphorus Magnesium Total Bilirubin Direct Bilirubin AST ALT Alkaline Phosphatase Total Creatine Kinase Troponin I NT-Pro-B Natriuret Pep Total Protein Albumin Globulin Albumin/Globulin Ratio Triglycerides Cholesterol LDL Cholesterol Direct HDL Cholesterol Free T4 Thyroxine (T4) TSH 3rd Generation Arterial Blood Potassium Venous Blood Potassium 5.5 H Urine Color Urine Appearance Urine pH Ur Specific [place] Urine Protein Urine Glucose (UA) Urine Ketones Urine Blood Urine Nitrate Urine Bilirubin Urine Urobilinogen Ur Leukocyte Esterase Urine RBC Urine WBC Ur Epithelial Cells Hyaline Casts Urine Opiates Screen Urine Methadone Screen Ur Barbiturates Screen Ur Phencyclidine Scrn Ur Amphetamines Screen U Benzodiazepines Scrn U Oth Cocaine Metabols U Cannabinoids Screen 09/08/18 09/08/18 09/08/18 12:30 12:35 12:50 WBC RBC Hgb Hct MCV MCH MCHC RDW Plt Count MPV Neut % (Auto) Lymph % (Auto) [place] % (Auto) Eos % (Auto) Baso % (Auto) Lymph # (Auto) [place] # (Auto) Eos # (Auto) Baso # (Auto) Absolute Neuts (auto) PT INR APTT D-Dimer, Quantitative pCO2 73 H* pO2 108.0 H HCO3 33.5 H ABG pH 7.27 L ABG Total CO2 35.7 H ABG O2 Saturation 98.4 H ABG O2 Content ABG Base Excess 4.2 H ABG Hemoglobin ABG Carboxyhemoglobin POC ABG HHb (Measured) ABG Methemoglobin ABG O2 Capacity ABG Potassium 5.1 VBG pH VBG pCO2 VBG HCO3 VBG Total CO2 VBG O2 Sat (Calc) VBG Base Excess VBG Potassium Hgb O2 Saturation Sodium 136.0 Chloride 102.0 Glucose 120 H Lactate 1.2 Mechanical Rate 18 FiO2 100.0 Tidal Volume 400 PEEP 5 Crit Value Called To Renee hannon Crit Value Called By 3769 Blood Gas Notified Time 1300 Potassium Carbon Dioxide Anion Gap BUN Creatinine Est GFR ( Amer) Est GFR (Non-Af Amer) POC Glucose (mg/dL) Random Glucose Hemoglobin A1c 6.8 H Fructosamine Uric Acid 8.0 H Calcium Phosphorus Magnesium Total Bilirubin Direct Bilirubin AST ALT Alkaline Phosphatase Total Creatine Kinase 152 Troponin I NT-Pro-B Natriuret Pep Total Protein Albumin Globulin Albumin/Globulin Ratio Triglycerides Cholesterol LDL Cholesterol Direct HDL Cholesterol Free T4 Thyroxine (T4) TSH 3rd Generation Arterial Blood Potassium 5.1 Venous Blood Potassium Urine Color Urine Appearance Urine pH Ur Specific [place] Urine Protein Urine Glucose (UA) Urine Ketones Urine Blood Urine Nitrate Urine Bilirubin Urine Urobilinogen Ur Leukocyte Esterase Urine RBC Urine WBC Ur Epithelial Cells Hyaline Casts Urine Opiates Screen Urine Methadone Screen Ur Barbiturates Screen Ur Phencyclidine Scrn Ur Amphetamines Screen U Benzodiazepines Scrn U Oth Cocaine Metabols U Cannabinoids Screen 09/08/18 09/08/18 09/08/18 13:15 13:25 19:40 WBC RBC Hgb Hct MCV MCH MCHC RDW Plt Count MPV Neut % (Auto) Lymph % (Auto) [place] % (Auto) Eos % (Auto) Baso % (Auto) Lymph # (Auto) [place] # (Auto) Eos # (Auto) Baso # (Auto) Absolute Neuts (auto) PT INR APTT D-Dimer, Quantitative pCO2 pO2 HCO3 ABG pH ABG Total CO2 ABG O2 Saturation ABG O2 Content ABG Base Excess ABG Hemoglobin ABG Carboxyhemoglobin POC ABG HHb (Measured) ABG Methemoglobin ABG O2 Capacity ABG Potassium VBG pH VBG pCO2 VBG HCO3 VBG Total CO2 VBG O2 Sat (Calc) VBG Base Excess VBG Potassium Hgb O2 Saturation Sodium 139 Chloride 99 Glucose Lactate Mechanical Rate FiO2 Tidal Volume PEEP Crit Value Called To Crit Value Called By Blood Gas Notified Time Potassium 5.4 H Carbon Dioxide 35 H Anion Gap 11 BUN 47 H Creatinine 1.2 Est GFR ( Amer) 53 Est GFR (Non-Af Amer) 44 POC Glucose (mg/dL) Random Glucose 115 H Hemoglobin A1c Fructosamine 188 L Uric Acid Calcium 9.0 Phosphorus 5.8 H Magnesium 1.9 Total Bilirubin 1.0 Direct Bilirubin AST 36 ALT 25 Alkaline Phosphatase 92 Total Creatine Kinase Troponin I 0.11 NT-Pro-B Natriuret Pep 48871 H Total Protein 6.6 Albumin 3.2 Globulin 3.4 Albumin/Globulin Ratio 1.0 L Triglycerides Cholesterol LDL Cholesterol Direct HDL Cholesterol Free T4 Thyroxine (T4) TSH 3rd Generation Arterial Blood Potassium Venous Blood Potassium Urine Color Yellow Urine Appearance Turbid Urine pH 6.0 Ur Specific [place] 1.020 Urine Protein 30 H Urine Glucose (UA) Negative Urine Ketones Negative Urine Blood Negative Urine Nitrate Negative Urine Bilirubin Small H Urine Urobilinogen 1.0 H Ur Leukocyte Esterase Negative Urine RBC 5 - 10 H Urine WBC None Ur Epithelial Cells 3 - 4 Hyaline Casts 0 - 2 Urine Opiates Screen Urine Methadone Screen Ur Barbiturates Screen Ur Phencyclidine Scrn Ur Amphetamines Screen U Benzodiazepines Scrn U Oth Cocaine Metabols U Cannabinoids Screen 09/08/18 09/08/18 09/08/18 19:40 19:40 19:40 WBC RBC Hgb Hct MCV MCH MCHC RDW Plt Count MPV Neut % (Auto) Lymph % (Auto) [place] % (Auto) Eos % (Auto) Baso % (Auto) Lymph # (Auto) [place] # (Auto) Eos # (Auto) Baso # (Auto) Absolute Neuts (auto) PT INR APTT D-Dimer, Quantitative 1600 H pCO2 pO2 HCO3 ABG pH ABG Total CO2 ABG O2 Saturation ABG O2 Content ABG Base Excess ABG Hemoglobin ABG Carboxyhemoglobin POC ABG HHb (Measured) ABG Methemoglobin ABG O2 Capacity ABG Potassium VBG pH VBG pCO2 VBG HCO3 VBG Total CO2 VBG O2 Sat (Calc) VBG Base Excess VBG Potassium Hgb O2 Saturation Sodium Chloride Glucose Lactate Mechanical Rate FiO2 Tidal Volume PEEP Crit Value Called To Crit Value Called By Blood Gas Notified Time Potassium Carbon Dioxide Anion Gap BUN Creatinine Est GFR ( Amer) Est GFR (Non-Af Amer) POC Glucose (mg/dL) Random Glucose Hemoglobin A1c Fructosamine Uric Acid Calcium Phosphorus Magnesium Total Bilirubin Direct Bilirubin AST ALT Alkaline Phosphatase Total Creatine Kinase 123 Troponin I 0.13 H* NT-Pro-B Natriuret Pep Total Protein Albumin Globulin Albumin/Globulin Ratio Triglycerides Cholesterol LDL Cholesterol Direct HDL Cholesterol Free T4 0.83 Thyroxine (T4) 3.4 L TSH 3rd Generation 2.48 Arterial Blood Potassium Venous Blood Potassium Urine Color Urine Appearance Urine pH Ur Specific [place] Urine Protein Urine Glucose (UA) Urine Ketones Urine Blood Urine Nitrate Urine Bilirubin Urine Urobilinogen Ur Leukocyte Esterase Urine RBC Urine WBC Ur Epithelial Cells Hyaline Casts Urine Opiates Screen Urine Methadone Screen Ur Barbiturates Screen Ur Phencyclidine Scrn Ur Amphetamines Screen U Benzodiazepines Scrn U Oth Cocaine Metabols U Cannabinoids Screen 09/08/18 09/08/18 09/08/18 20:10 23:15 23:30 WBC RBC Hgb Hct MCV MCH MCHC RDW Plt Count MPV Neut % (Auto) Lymph % (Auto) [place] % (Auto) Eos % (Auto) Baso % (Auto) Lymph # (Auto) [place] # (Auto) Eos # (Auto) Baso # (Auto) Absolute Neuts (auto) PT INR APTT D-Dimer, Quantitative pCO2 38 pO2 98.0 HCO3 27.7 ABG pH 7.47 H ABG Total CO2 28.9 H ABG O2 Saturation 99.0 H ABG O2 Content 20.9 ABG Base Excess 3.9 H ABG Hemoglobin 15.5 ABG Carboxyhemoglobin 2.2 H POC ABG HHb (Measured) 1.0 ABG Methemoglobin 1.2 ABG O2 Capacity 21.1 ABG Potassium VBG pH VBG pCO2 VBG HCO3 VBG Total CO2 VBG O2 Sat (Calc) VBG Base Excess VBG Potassium Hgb O2 Saturation 95.6 Sodium Chloride Glucose Lactate Mechanical Rate FiO2 80.0 Tidal Volume PEEP Crit Value Called To Crit Value Called By Blood Gas Notified Time Potassium Carbon Dioxide Anion Gap BUN Creatinine Est GFR ( Amer) Est GFR (Non-Af Amer) POC Glucose (mg/dL) Random Glucose Hemoglobin A1c Fructosamine Uric Acid Calcium Phosphorus Magnesium Total Bilirubin Direct Bilirubin AST ALT Alkaline Phosphatase Total Creatine Kinase 79 Troponin I 0.08 D NT-Pro-B Natriuret Pep Total Protein Albumin Globulin Albumin/Globulin Ratio Triglycerides Cholesterol LDL Cholesterol Direct HDL Cholesterol Free T4 Thyroxine (T4) TSH 3rd Generation Arterial Blood Potassium Venous Blood Potassium Urine Color Urine Appearance Urine pH Ur Specific [place] Urine Protein Urine Glucose (UA) Urine Ketones Urine Blood Urine Nitrate Urine Bilirubin Urine Urobilinogen Ur Leukocyte Esterase Urine RBC Urine WBC Ur Epithelial Cells Hyaline Casts Urine Opiates Screen Negative Urine Methadone Screen Negative Ur Barbiturates Screen Negative Ur Phencyclidine Scrn Negative Ur Amphetamines Screen Negative U Benzodiazepines Scrn Negative U Oth Cocaine Metabols Negative U Cannabinoids Screen Negative 09/08/18 09/09/18 09/09/18 23:52 00:40 05:35 WBC 9.5 RBC 5.26 Hgb 15.6 Hct 50.2 H MCV 95.4 D MCH 29.7 MCHC 31.1 RDW 14.6 H Plt Count 191 MPV 10.0 Neut % (Auto) 89.8 H Lymph % (Auto) 6.3 L [place] % (Auto) 3.9 Eos % (Auto) 0.0 L Baso % (Auto) 0.0 Lymph # (Auto) 0.6 L [place] # (Auto) 0.4 Eos # (Auto) 0.0 Baso # (Auto) 0.00 Absolute Neuts (auto) 8.52 H PT INR APTT 184.9 H* D-Dimer, Quantitative pCO2 pO2 HCO3 ABG pH ABG Total CO2 ABG O2 Saturation ABG O2 Content ABG Base Excess ABG Hemoglobin ABG Carboxyhemoglobin POC ABG HHb (Measured) ABG Methemoglobin ABG O2 Capacity ABG Potassium VBG pH VBG pCO2 VBG HCO3 VBG Total CO2 VBG O2 Sat (Calc) VBG Base Excess VBG Potassium Hgb O2 Saturation Sodium Chloride Glucose Lactate Mechanical Rate FiO2 Tidal Volume PEEP Crit Value Called To Crit Value Called By Blood Gas Notified Time Potassium Carbon Dioxide Anion Gap BUN Creatinine Est GFR ( Amer) Est GFR (Non-Af Amer) POC Glucose (mg/dL) 154 H Random Glucose Hemoglobin A1c Fructosamine Uric Acid Calcium Phosphorus Magnesium Total Bilirubin Direct Bilirubin AST ALT Alkaline Phosphatase Total Creatine Kinase Troponin I NT-Pro-B Natriuret Pep Total Protein Albumin Globulin Albumin/Globulin Ratio Triglycerides Cholesterol LDL Cholesterol Direct HDL Cholesterol Free T4 Thyroxine (T4) TSH 3rd Generation Arterial Blood Potassium Venous Blood Potassium Urine Color Urine Appearance Urine pH Ur Specific [place] Urine Protein Urine Glucose (UA) Urine Ketones Urine Blood Urine Nitrate Urine Bilirubin Urine Urobilinogen Ur Leukocyte Esterase Urine RBC Urine WBC Ur Epithelial Cells Hyaline Casts Urine Opiates Screen Urine Methadone Screen Ur Barbiturates Screen Ur Phencyclidine Scrn Ur Amphetamines Screen U Benzodiazepines Scrn U Oth Cocaine Metabols U Cannabinoids Screen 09/09/18 09/09/18 09/09/18 05:55 05:58 06:47 WBC RBC Hgb Hct MCV MCH MCHC RDW Plt Count MPV Neut % (Auto) Lymph % (Auto) [place] % (Auto) Eos % (Auto) Baso % (Auto) Lymph # (Auto) [place] # (Auto) Eos # (Auto) Baso # (Auto) Absolute Neuts (auto) PT INR APTT D-Dimer, Quantitative pCO2 52 H pO2 63.0 L HCO3 30.8 H ABG pH 7.38 ABG Total CO2 32.4 H ABG O2 Saturation 94.2 L ABG O2 Content 19.7 ABG Base Excess 4.2 H ABG Hemoglobin 15.4 ABG Carboxyhemoglobin 2.3 H POC ABG HHb (Measured) 5.6 H ABG Methemoglobin 1.1 ABG O2 Capacity 20.9 ABG Potassium VBG pH VBG pCO2 VBG HCO3 VBG Total CO2 VBG O2 Sat (Calc) VBG Base Excess VBG Potassium Hgb O2 Saturation 91.0 L Sodium 138 Chloride 100 Glucose Lactate Mechanical Rate FiO2 80.0 Tidal Volume PEEP Crit Value Called To Crit Value Called By Blood Gas Notified Time Potassium 4.9 Carbon Dioxide 34 H Anion Gap 8 L BUN 47 H Creatinine 1.0 Est GFR ( Amer) > 60 Est GFR (Non-Af Amer) 54 POC Glucose (mg/dL) 117 H Random Glucose 127 H Hemoglobin A1c Fructosamine Uric Acid Calcium 8.4 Phosphorus 4.6 H Magnesium 1.8 Total Bilirubin 0.5 Direct Bilirubin 0.5 H AST 28 ALT 22 Alkaline Phosphatase 75 Total Creatine Kinase Troponin I NT-Pro-B Natriuret Pep 06208 H Total Protein 5.6 L Albumin 2.7 L Globulin 2.9 Albumin/Globulin Ratio 1.0 L Triglycerides 121 Cholesterol 90 L LDL Cholesterol Direct 50 HDL Cholesterol 21 L Free T4 Thyroxine (T4) TSH 3rd Generation Arterial Blood Potassium Venous Blood Potassium Urine Color Urine Appearance Urine pH Ur Specific [place] Urine Protein Urine Glucose (UA) Urine Ketones Urine Blood Urine Nitrate Urine Bilirubin Urine Urobilinogen Ur Leukocyte Esterase Urine RBC Urine WBC Ur Epithelial Cells Hyaline Casts Urine Opiates Screen Urine Methadone Screen Ur Barbiturates Screen Ur Phencyclidine Scrn Ur Amphetamines Screen U Benzodiazepines Scrn U Oth Cocaine Metabols U Cannabinoids Screen 09/09/18 06:47 WBC RBC Hgb Hct MCV MCH MCHC RDW Plt Count MPV Neut % (Auto) Lymph % (Auto) [place] % (Auto) Eos % (Auto) Baso % (Auto) Lymph # (Auto) [place] # (Auto) Eos # (Auto) Baso # (Auto) Absolute Neuts (auto) PT 15.7 H INR 1.39 APTT 81.3 H D-Dimer, Quantitative pCO2 pO2 HCO3 ABG pH ABG Total CO2 ABG O2 Saturation ABG O2 Content ABG Base Excess ABG Hemoglobin ABG Carboxyhemoglobin POC ABG HHb (Measured) ABG Methemoglobin ABG O2 Capacity ABG Potassium VBG pH VBG pCO2 VBG HCO3 VBG Total CO2 VBG O2 Sat (Calc) VBG Base Excess VBG Potassium Hgb O2 Saturation Sodium Chloride Glucose Lactate Mechanical Rate FiO2 Tidal Volume PEEP Crit Value Called To Crit Value Called By Blood Gas Notified Time Potassium Carbon Dioxide Anion Gap BUN Creatinine Est GFR ( Amer) Est GFR (Non-Af Amer) POC Glucose (mg/dL) Random Glucose Hemoglobin A1c Fructosamine Uric Acid Calcium Phosphorus Magnesium Total Bilirubin Direct Bilirubin AST ALT Alkaline Phosphatase Total Creatine Kinase Troponin I NT-Pro-B Natriuret Pep Total Protein Albumin Globulin Albumin/Globulin Ratio Triglycerides Cholesterol LDL Cholesterol Direct HDL Cholesterol Free T4 Thyroxine (T4) TSH 3rd Generation Arterial Blood Potassium Venous Blood Potassium Urine Color Urine Appearance Urine pH Ur Specific [place] Urine Protein Urine Glucose (UA) Urine Ketones Urine Blood Urine Nitrate Urine Bilirubin Urine Urobilinogen Ur Leukocyte Esterase Urine RBC Urine WBC Ur Epithelial Cells Hyaline Casts Urine Opiates Screen Urine Methadone Screen Ur Barbiturates Screen Ur Phencyclidine Scrn Ur Amphetamines Screen U Benzodiazepines Scrn U Oth Cocaine Metabols U Cannabinoids Screen Radiology Impressions: Radiology Impressions Chest X-Ray 09/08/18 11:27 IMPRESSION: In situ ETT as described. Bibasilar atelectasis and/or infiltrates with suspected bilateral effusions. Cardiomegaly with right-sided aortic arch.. Chest X-Ray 09/08/18 13:20 IMPRESSION: Slightly limited study demonstrating interval placement right IJ central line as above. In situ ETT. Persistent bilateral lower lobe atelectasis and/or infiltrates and bilateral effusions left larger. Cardiomegaly. Right-sided aortic arch Chest CT 09/08/18 13:50 IMPRESSION: There is evidence of pulmonary emboli are seen within the distal right lower lobe branches and proximal right lower lobe segmental branches.. Small right-sided effusion and mild right basilar atelectasis. There are compressive type atelectatic changes seen in the left medial lung base crowding of the bronchovascular markings. Marked cardiomegaly. Recommend echocardiogram to exclude right heart strain. 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 Findings discussed with Dr. James at approximately 4:22 p.m. with written down and read back verification EKG/Cardiology Studies: Cardiology / EKG Studies 09/08/18 11:37 EKG [ELECTROCARDIOGRAM] Stat Comment: Reason For Exam: RESP. DISTRESS 09/09/18 07:00 EKG [ELECTROCARDIOGRAM] DAILY Comment: Reason For Exam: AMI 09/10/18 07:00 EKG [ELECTROCARDIOGRAM] DAILY Comment: Reason For Exam: AMI 09/11/18 07:00 EKG [ELECTROCARDIOGRAM] DAILY Comment: Reason For Exam: AMI Fingerstick Blood Sugar Results: 117 Review of Systems - Review of Systems Systems not reviewed;Unavailable: Altered Mental Status Critical Care Progress Note - Ventilator Checklist Head of Bed 30 Degrees: Yes Daily Sedation Vacation: Yes Daily Assessment of Readiness to Wean: Yes Daily Spontaneous Breathing Trial: Yes PUD Prophalyxis: Yes DVT Prophylaxis: Yes Oral Care with Chlorhexidine Gluconate {CHG}: Yes - Vent Settings MODE:: PRVC - Nutrition Nutrition: Nutrition Category Date Time Status NPO Diet [DIET] Diets 09/09/18 Breakfast Ordered Assessment/Plan - Assessment and Plan (Free Text) Assessment: 3 y/o female admitted to ICU for AMS and respiratory distress found to have PE on right lung with possible PNA. Plan: Neuro: -intubated. awake, responds to verbal stimuli -maintain normthermia Cardio: -Echo: Right ventricular strain in the setting of PE -BNP 17594 -trops trending down 0.13 to 0.08 likely due to RV strain in the setting of PE -continue lasix 40 mg q12h -maintain MAP> 65 -cardiology consulted Pulm: -respiratory failure -CT chest: subsegmental right lung PE with small pleural effusion -LE doppler negative for DVT -on therapeutic heparin drip -PTT 184--81.3 -AB.38/52/63 -CXR: vascular congestion. possible PNA -continue PRVC 450/20//8 -VAP protocol: elevate HOB >45, daily sedation vacation, daily weaning trial, mouth hygeine, DVT/GI ppx ID: -possible cellulitis on abdominal wall, hips -CPK normal -f/u cultures -low procal -continue meropenem, doxycycline, vancomycin -WBC trending down /Renal: -BUN/Cr within normal range -maintain euvolemia, euglycemia -UDS negative Prophylaxis: PPI SCD, therapeutic heparin Continue ICU management Case reviewed and discussed with attending Dr Brink <Byron Brink - Last Filed: 09/10/18 07:39> CCU Objective - Vital Signs / Intake & Output Vital Signs (Last 4 hours): Vital Signs Pulse Resp Pulse Ox 09/10/18 07:30 27 H 95 09/10/18 04:00 71 Intake and Output (Last 8hrs): Intake & Output 09/09/18 09/10/18 09/10/18 22:59 06:59 14:59 Intake Total 593 466 Output Total 800 1375 Balance -207 -909 Intake: IV 593 466 Left Hand 568 250 Right Internal Jugular 216 Output: Urine 800 1375 Urethral (Alonzo) 800 1375 Other: # Bowel Movements 0 - Medications Active Medications: Active Medications Generic Name Dose Route Start Last Admin Trade Name Freq PRN Reason Stop Dose Admin Acetaminophen 650 mg 09/08/18 14:22 Tylenol 325mg Tab PO Q6 PRN TEMP>=99.5F Acetaminophen 650 mg 09/08/18 14:22 Tylenol 650 Mg Supp RC Q6H PRN TEMP>=99.5F Allopurinol 100 mg 09/09/18 10:00 09/09/18 17:39 Zyloprim PO Not Given DAILY SABIHA Dextrose 0 ml 09/08/18 22:59 Dextrose 50% Inj IV STAT PRN Hypoglycemia Protocol Protocol Furosemide 40 mg 09/08/18 23:00 09/09/18 21:00 Lasix IVP 40 mg Q12 SABIHA Administration Propofol 1,000 mg in 100 mls @ 3.266 mls/hr 09/08/18 11:33 09/09/18 08:00 Diprivan IV 0 mcg/kg/min .Q24H PRN 0 mls/hr TITRATE PER MD ORDER Titration Protocol 5 MCG/KG/MIN Doxycycline Hyclate 100 mg/ 100 mls @ 100 mls/hr 09/08/18 22:00 09/09/18 21:38 Sodium Chloride IVPB 100 mls/hr Q12 SABIHA Administration Protocol Heparin Sodium/Sodium Chloride 25,000 units in 250 mls @ 19.922 mls/hr 09/08/18 16:40 09/10/18 06:33 Heparin 44021 Units/250ml 1/2 Normal Saline IV 10 units/kg/hr .[id number] PRN 11.068 mls/hr ADJUST RATE PER PROTOCOL Administration Protocol 18 UNITS/KG/HR Vancomycin HCl 1 gm in 250 mls @ 167 mls/hr 09/09/18 10:00 09/09/18 09:02 Vancomycin 1gm IVPB 167 mls/hr DAILY SABIHA Administration Protocol Meropenem 1 gm in 50 mls @ 100 mls/hr 09/08/18 22:00 09/09/18 21:01 Merrem Iv 1 Gm Premix IVPB 09/17/18 22:01 100 mls/hr Q12 SABIHA Administration Protocol Dextrose 1,000 mls @ 0 mls/hr 09/08/18 22:59 Dextrose 5% In Water 1000 Ml IV .Q0M PRN Hypoglycemia Protocol Protocol Per Protocol Dobutamine HCl/Dextrose 500 mg in 250 mls @ 8.301 mls/hr 09/09/18 16:30 09/09/18 17:42 Dobutamine/Dextrose 5% 500mg/250ml IV 2.5 mcg/kg/min .Q24H PRN 8.301 mls/hr TITRATE PER PROTOCOL Administration Protocol 2.5 MCG/KG/MIN Insulin Human Lispro 0 units 09/08/18 23:01 09/10/18 05:34 Humalog High SC Not Given Q6H SABIHA Protocol Lactic Acid 0 ea 09/10/18 10:00 Lac-Hydrin 12% Cream (140 G) TOP DAILY SABIHA Levalbuterol HCl 0.63 mg 09/08/18 20:00 09/10/18 06:59 Xopenex IH 0.63 mg [id number] SABIHA Administration Methylprednisolone 20 mg 09/09/18 08:15 09/09/18 21:00 Solu-Medrol IVP 20 mg Q12H SABIHA Administration Nicotine 1 patch 09/09/18 10:00 09/09/18 09:00 Nicoderm Cq TD 1 patch DAILY SABIHA Administration Nystatin 0 gm 09/08/18 18:00 09/10/18 05:08 Nystop Topical Powder TOP 2 pdr Q6 SABIHA Administration Nystatin 0 ea 09/08/18 23:00 09/09/18 17:38 Mycostatin Cream TOP 2 unit TID SABIHA Administration Ondansetron HCl 4 mg 09/08/18 14:22 Zofran Inj IVP Q4H PRN Nausea/Vomiting Pantoprazole Sodium 40 mg 09/08/18 22:00 09/09/18 21:05 Protonix Inj IVP 40 mg Q12 SABIHA Administration - Patient Studies Lab Studies: Microbiology Studies 09/08/18 16:30 MRSA Culture (Admit) - Final Naris MRSA NOT DETECTED 09/08/18 12:30 Blood Culture - Preliminary Blood NO GROWTH AFTER 24 HOURS 09/08/18 12:00 Blood Culture - Preliminary Blood NO GROWTH AFTER 24 HOURS 09/08/18 13:25 Urine Culture - Final Urine Random No Growth (<1,000 CFU/ML) Lab Studies 09/10/18 09/10/18 09/10/18 Range/Units 06:10 05:40 05:40 WBC 10.4 (4.5-11.0) 10^3/uL RBC 4.88 (3.5-6.1) 10^6/uL Hgb 14.4 (12.0-16.0) g/dL Hct 46.4 (36.0-48.0) % MCV 95.1 (80.0-105.0) fl MCH 29.5 (25.0-35.0) pg MCHC 31.0 (31.0-37.0) g/dl RDW 14.8 H (11.5-14.5) % Plt Count 215 (120.0-450.0) 10^3/uL MPV 10.2 (7.0-11.0) fl Neut % (Auto) 89.0 H (50.0-68.0) % Lymph % (Auto) 7.2 L (22.0-35.0) % [place] % (Auto) 3.7 (1.0-6.0) % Eos % (Auto) 0.0 L (1.5-5.0) % Baso % (Auto) 0.1 (0.0-3.0) % Lymph # (Auto) 0.8 L (1.2-3.4) [place] # (Auto) 0.4 (0.1-0.6) Eos # (Auto) 0.0 (0.0-0.7) Baso # (Auto) 0.01 (0.0-2.0) K/mm3 Absolute Neuts (auto) 9.24 H (1.4-6.5) APTT (26.9-38.3) Seconds pCO2 48 H (35-45) mm/Hg pO2 93.0 (80-100) mm/Hg HCO3 31.9 H (21-28) mmol/L ABG pH 7.43 (7.35-7.45) ABG Total CO2 33.4 H (22-28) mmol.L ABG O2 Saturation 98.5 H (95-98) % ABG O2 Content 19.2 (15-23) ML/dl ABG Base Excess 6.4 H (-2.0-3.0) mmol/L ABG Hemoglobin 14.2 (11.7-17.4) g/dL ABG Carboxyhemoglobin 1.8 H (0.5-1.5) % POC ABG HHb (Measured) 1.5 (0-5) % ABG Methemoglobin 1.0 (0.0-3.0) % ABG O2 Capacity 19.5 (16-24) mL/dl Hgb O2 Saturation 95.6 (95.0-98.0) % FiO2 60.0 % Sodium 142 (132-148) mmol/L Potassium 4.5 (3.6-5.0) mmol/L Chloride 101 (98-107) mmol/L Carbon Dioxide 34 H (21-33) mmol/L Anion Gap 11 (10-20) BUN 53 H (7-21) mg/dL Creatinine 1.0 (0.7-1.2) mg/dl Est GFR ( Amer) > 60 Est GFR (Non-Af Amer) 54 POC Glucose (mg/dL) (65-110) mg/dL Random Glucose 114 H (70-110) mg/dL Fructosamine (190-270) umol/L Calcium 8.0 L (8.4-10.5) mg/dL Phosphorus 4.3 (2.5-4.5) mg/dL Magnesium 1.7 (1.7-2.2) mg/dL Total Bilirubin 0.5 (0.2-1.3) mg/dL Direct Bilirubin 0.5 H (0.0-0.4) mg/dL AST 22 (14-36) U/L ALT 22 (7-56) U/L Alkaline Phosphatase 69 (38-126) U/L C-React Prot High Sens (1.00-3.00) mg/L NT-Pro-B Natriuret Pep 4690 H (0-450) pg/mL Total Protein 5.3 L (5.8-8.3) g/dL Albumin 2.5 L (3.0-4.8) g/dL Globulin 2.7 gm/dL Albumin/Globulin Ratio 0.9 L (1.1-1.8) 25-OH Vitamin D Total (30.0-100.0) NG/ML Procalcitonin (0.19-0.49) NG/ML Ur L.pneumophila Ag (NEGATIVE) 09/10/18 09/10/18 09/09/18 Range/Units 05:26 02:00 22:43 WBC (4.5-11.0) 10^3/uL RBC (3.5-6.1) 10^6/uL Hgb (12.0-16.0) g/dL Hct (36.0-48.0) % MCV (80.0-105.0) fl MCH (25.0-35.0) pg MCHC (31.0-37.0) g/dl RDW (11.5-14.5) % Plt Count (120.0-450.0) 10^3/uL MPV (7.0-11.0) fl Neut % (Auto) (50.0-68.0) % Lymph % (Auto) (22.0-35.0) % [place] % (Auto) (1.0-6.0) % Eos % (Auto) (1.5-5.0) % Baso % (Auto) (0.0-3.0) % Lymph # (Auto) (1.2-3.4) [place] # (Auto) (0.1-0.6) Eos # (Auto) (0.0-0.7) Baso # (Auto) (0.0-2.0) K/mm3 Absolute Neuts (auto) (1.4-6.5) APTT 76.2 H (26.9-38.3) Seconds pCO2 (35-45) mm/Hg pO2 (80-100) mm/Hg HCO3 (21-28) mmol/L ABG pH (7.35-7.45) ABG Total CO2 (22-28) mmol.L ABG O2 Saturation (95-98) % ABG O2 Content (15-23) ML/dl ABG Base Excess (-2.0-3.0) mmol/L ABG Hemoglobin (11.7-17.4) g/dL ABG Carboxyhemoglobin (0.5-1.5) % POC ABG HHb (Measured) (0-5) % ABG Methemoglobin (0.0-3.0) % ABG O2 Capacity (16-24) mL/dl Hgb O2 Saturation (95.0-98.0) % FiO2 % Sodium (132-148) mmol/L Potassium (3.6-5.0) mmol/L Chloride (98-107) mmol/L Carbon Dioxide (21-33) mmol/L Anion Gap (10-20) BUN (7-21) mg/dL Creatinine (0.7-1.2) mg/dl Est GFR ( Amer) Est GFR (Non-Af Amer) POC Glucose (mg/dL) 113 H 93 (65-110) mg/dL Random Glucose (70-110) mg/dL Fructosamine (190-270) umol/L Calcium (8.4-10.5) mg/dL Phosphorus (2.5-4.5) mg/dL Magnesium (1.7-2.2) mg/dL Total Bilirubin (0.2-1.3) mg/dL Direct Bilirubin (0.0-0.4) mg/dL AST (14-36) U/L ALT (7-56) U/L Alkaline Phosphatase (38-126) U/L C-React Prot High Sens (1.00-3.00) mg/L NT-Pro-B Natriuret Pep (0-450) pg/mL Total Protein (5.8-8.3) g/dL Albumin (3.0-4.8) g/dL Globulin gm/dL Albumin/Globulin Ratio (1.1-1.8) 25-OH Vitamin D Total (30.0-100.0) NG/ML Procalcitonin (0.19-0.49) NG/ML Ur L.pneumophila Ag (NEGATIVE) 09/09/18 09/09/18 09/09/18 Range/Units 19:20 17:29 13:10 WBC (4.5-11.0) 10^3/uL RBC (3.5-6.1) 10^6/uL Hgb (12.0-16.0) g/dL Hct (36.0-48.0) % MCV (80.0-105.0) fl MCH (25.0-35.0) pg MCHC (31.0-37.0) g/dl RDW (11.5-14.5) % Plt Count (120.0-450.0) 10^3/uL MPV (7.0-11.0) fl Neut % (Auto) (50.0-68.0) % Lymph % (Auto) (22.0-35.0) % [place] % (Auto) (1.0-6.0) % Eos % (Auto) (1.5-5.0) % Baso % (Auto) (0.0-3.0) % Lymph # (Auto) (1.2-3.4) [place] # (Auto) (0.1-0.6) Eos # (Auto) (0.0-0.7) Baso # (Auto) (0.0-2.0) K/mm3 Absolute Neuts (auto) (1.4-6.5) APTT 104.2 H* 73.2 H (26.9-38.3) Seconds pCO2 (35-45) mm/Hg pO2 (80-100) mm/Hg HCO3 (21-28) mmol/L ABG pH (7.35-7.45) ABG Total CO2 (22-28) mmol.L ABG O2 Saturation (95-98) % ABG O2 Content (15-23) ML/dl ABG Base Excess (-2.0-3.0) mmol/L ABG Hemoglobin (11.7-17.4) g/dL ABG Carboxyhemoglobin (0.5-1.5) % POC ABG HHb (Measured) (0-5) % ABG Methemoglobin (0.0-3.0) % ABG O2 Capacity (16-24) mL/dl Hgb O2 Saturation (95.0-98.0) % FiO2 % Sodium (132-148) mmol/L Potassium (3.6-5.0) mmol/L Chloride (98-107) mmol/L Carbon Dioxide (21-33) mmol/L Anion Gap (10-20) BUN (7-21) mg/dL Creatinine (0.7-1.2) mg/dl Est GFR ( Amer) Est GFR (Non-Af Amer) POC Glucose (mg/dL) 111 H (65-110) mg/dL Random Glucose (70-110) mg/dL Fructosamine (190-270) umol/L Calcium (8.4-10.5) mg/dL Phosphorus (2.5-4.5) mg/dL Magnesium (1.7-2.2) mg/dL Total Bilirubin (0.2-1.3) mg/dL Direct Bilirubin (0.0-0.4) mg/dL AST (14-36) U/L ALT (7-56) U/L Alkaline Phosphatase (38-126) U/L C-React Prot High Sens (1.00-3.00) mg/L NT-Pro-B Natriuret Pep (0-450) pg/mL Total Protein (5.8-8.3) g/dL Albumin (3.0-4.8) g/dL Globulin gm/dL Albumin/Globulin Ratio (1.1-1.8) 25-OH Vitamin D Total (30.0-100.0) NG/ML Procalcitonin (0.19-0.49) NG/ML Ur L.pneumophila Ag (NEGATIVE) 09/09/18 09/08/18 09/08/18 Range/Units 11:21 23:30 23:30 WBC (4.5-11.0) 10^3/uL RBC (3.5-6.1) 10^6/uL Hgb (12.0-16.0) g/dL Hct (36.0-48.0) % MCV (80.0-105.0) fl MCH (25.0-35.0) pg MCHC (31.0-37.0) g/dl RDW (11.5-14.5) % Plt Count (120.0-450.0) 10^3/uL MPV (7.0-11.0) fl Neut % (Auto) (50.0-68.0) % Lymph % (Auto) (22.0-35.0) % [place] % (Auto) (1.0-6.0) % Eos % (Auto) (1.5-5.0) % Baso % (Auto) (0.0-3.0) % Lymph # (Auto) (1.2-3.4) [place] # (Auto) (0.1-0.6) Eos # (Auto) (0.0-0.7) Baso # (Auto) (0.0-2.0) K/mm3 Absolute Neuts (auto) (1.4-6.5) APTT (26.9-38.3) Seconds pCO2 (35-45) mm/Hg pO2 (80-100) mm/Hg HCO3 (21-28) mmol/L ABG pH (7.35-7.45) ABG Total CO2 (22-28) mmol.L ABG O2 Saturation (95-98) % ABG O2 Content (15-23) ML/dl ABG Base Excess (-2.0-3.0) mmol/L ABG Hemoglobin (11.7-17.4) g/dL ABG Carboxyhemoglobin (0.5-1.5) % POC ABG HHb (Measured) (0-5) % ABG Methemoglobin (0.0-3.0) % ABG O2 Capacity (16-24) mL/dl Hgb O2 Saturation (95.0-98.0) % FiO2 % Sodium (132-148) mmol/L Potassium (3.6-5.0) mmol/L Chloride (98-107) mmol/L Carbon Dioxide (21-33) mmol/L Anion Gap (10-20) BUN (7-21) mg/dL Creatinine (0.7-1.2) mg/dl Est GFR ( Amer) Est GFR (Non-Af Amer) POC Glucose (mg/dL) 118 H (65-110) mg/dL Random Glucose (70-110) mg/dL Fructosamine (190-270) umol/L Calcium (8.4-10.5) mg/dL Phosphorus (2.5-4.5) mg/dL Magnesium (1.7-2.2) mg/dL Total Bilirubin (0.2-1.3) mg/dL Direct Bilirubin (0.0-0.4) mg/dL AST (14-36) U/L ALT (7-56) U/L Alkaline Phosphatase (38-126) U/L C-React Prot High Sens (1.00-3.00) mg/L NT-Pro-B Natriuret Pep (0-450) pg/mL Total Protein (5.8-8.3) g/dL Albumin (3.0-4.8) g/dL Globulin gm/dL Albumin/Globulin Ratio (1.1-1.8) 25-OH Vitamin D Total < 12.8 L (30.0-100.0) NG/ML Procalcitonin < 0.05 L (0.19-0.49) NG/ML Ur L.pneumophila Ag (NEGATIVE) 09/08/18 09/08/18 09/08/18 Range/Units 23:15 19:40 19:40 WBC (4.5-11.0) 10^3/uL RBC (3.5-6.1) 10^6/uL Hgb (12.0-16.0) g/dL Hct (36.0-48.0) % MCV (80.0-105.0) fl MCH (25.0-35.0) pg MCHC (31.0-37.0) g/dl RDW (11.5-14.5) % Plt Count (120.0-450.0) 10^3/uL MPV (7.0-11.0) fl Neut % (Auto) (50.0-68.0) % Lymph % (Auto) (22.0-35.0) % [place] % (Auto) (1.0-6.0) % Eos % (Auto) (1.5-5.0) % Baso % (Auto) (0.0-3.0) % Lymph # (Auto) (1.2-3.4) [place] # (Auto) (0.1-0.6) Eos # (Auto) (0.0-0.7) Baso # (Auto) (0.0-2.0) K/mm3 Absolute Neuts (auto) (1.4-6.5) APTT (26.9-38.3) Seconds pCO2 (35-45) mm/Hg pO2 (80-100) mm/Hg HCO3 (21-28) mmol/L ABG pH (7.35-7.45) ABG Total CO2 (22-28) mmol.L ABG O2 Saturation (95-98) % ABG O2 Content (15-23) ML/dl ABG Base Excess (-2.0-3.0) mmol/L ABG Hemoglobin (11.7-17.4) g/dL ABG Carboxyhemoglobin (0.5-1.5) % POC ABG HHb (Measured) (0-5) % ABG Methemoglobin (0.0-3.0) % ABG O2 Capacity (16-24) mL/dl Hgb O2 Saturation (95.0-98.0) % FiO2 % Sodium (132-148) mmol/L Potassium (3.6-5.0) mmol/L Chloride (98-107) mmol/L Carbon Dioxide (21-33) mmol/L Anion Gap (10-20) BUN (7-21) mg/dL Creatinine (0.7-1.2) mg/dl Est GFR ( Amer) Est GFR (Non-Af Amer) POC Glucose (mg/dL) (65-110) mg/dL Random Glucose (70-110) mg/dL Fructosamine 188 L (190-270) umol/L Calcium (8.4-10.5) mg/dL Phosphorus (2.5-4.5) mg/dL Magnesium (1.7-2.2) mg/dL Total Bilirubin (0.2-1.3) mg/dL Direct Bilirubin (0.0-0.4) mg/dL AST (14-36) U/L ALT (7-56) U/L Alkaline Phosphatase (38-126) U/L C-React Prot High Sens > 15.00 H (1.00-3.00) mg/L NT-Pro-B Natriuret Pep (0-450) pg/mL Total Protein (5.8-8.3) g/dL Albumin (3.0-4.8) g/dL Globulin gm/dL Albumin/Globulin Ratio (1.1-1.8) 25-OH Vitamin D Total (30.0-100.0) NG/ML Procalcitonin (0.19-0.49) NG/ML Ur L.pneumophila Ag Negative (NEGATIVE) Laboratory Results - last 24 hr 09/08/18 09/08/18 09/08/18 19:40 19:40 23:15 WBC RBC Hgb Hct MCV MCH MCHC RDW Plt Count MPV Neut % (Auto) Lymph % (Auto) [place] % (Auto) Eos % (Auto) Baso % (Auto) Lymph # (Auto) [place] # (Auto) Eos # (Auto) Baso # (Auto) Absolute Neuts (auto) APTT pCO2 pO2 HCO3 ABG pH ABG Total CO2 ABG O2 Saturation ABG O2 Content ABG Base Excess ABG Hemoglobin ABG Carboxyhemoglobin POC ABG HHb (Measured) ABG Methemoglobin ABG O2 Capacity Hgb O2 Saturation FiO2 Sodium Potassium Chloride Carbon Dioxide Anion Gap BUN Creatinine Est GFR ( Amer) Est GFR (Non-Af Amer) POC Glucose (mg/dL) Random Glucose Fructosamine 188 L Calcium Phosphorus Magnesium Total Bilirubin Direct Bilirubin AST ALT Alkaline Phosphatase C-React Prot High Sens > 15.00 H NT-Pro-B Natriuret Pep Total Protein Albumin Globulin Albumin/Globulin Ratio 25-OH Vitamin D Total Procalcitonin Ur L.pneumophila Ag Negative 09/08/18 09/08/18 09/09/18 23:30 23:30 11:21 WBC RBC Hgb Hct MCV MCH MCHC RDW Plt Count MPV Neut % (Auto) Lymph % (Auto) [place] % (Auto) Eos % (Auto) Baso % (Auto) Lymph # (Auto) [place] # (Auto) Eos # (Auto) Baso # (Auto) Absolute Neuts (auto) APTT pCO2 pO2 HCO3 ABG pH ABG Total CO2 ABG O2 Saturation ABG O2 Content ABG Base Excess ABG Hemoglobin ABG Carboxyhemoglobin POC ABG HHb (Measured) ABG Methemoglobin ABG O2 Capacity Hgb O2 Saturation FiO2 Sodium Potassium Chloride Carbon Dioxide Anion Gap BUN Creatinine Est GFR ( Amer) Est GFR (Non-Af Amer) POC Glucose (mg/dL) 118 H Random Glucose Fructosamine Calcium Phosphorus Magnesium Total Bilirubin Direct Bilirubin AST ALT Alkaline Phosphatase C-React Prot High Sens NT-Pro-B Natriuret Pep Total Protein Albumin Globulin Albumin/Globulin Ratio 25-OH Vitamin D Total < 12.8 L Procalcitonin < 0.05 L Ur L.pneumophila Ag 09/09/18 09/09/18 09/09/18 13:10 17:29 19:20 WBC RBC Hgb Hct MCV MCH MCHC RDW Plt Count MPV Neut % (Auto) Lymph % (Auto) [place] % (Auto) Eos % (Auto) Baso % (Auto) Lymph # (Auto) [place] # (Auto) Eos # (Auto) Baso # (Auto) Absolute Neuts (auto) APTT 73.2 H 104.2 H* pCO2 pO2 HCO3 ABG pH ABG Total CO2 ABG O2 Saturation ABG O2 Content ABG Base Excess ABG Hemoglobin ABG Carboxyhemoglobin POC ABG HHb (Measured) ABG Methemoglobin ABG O2 Capacity Hgb O2 Saturation FiO2 Sodium Potassium Chloride Carbon Dioxide Anion Gap BUN Creatinine Est GFR ( Amer) Est GFR (Non-Af Amer) POC Glucose (mg/dL) 111 H Random Glucose Fructosamine Calcium Phosphorus Magnesium Total Bilirubin Direct Bilirubin AST ALT Alkaline Phosphatase C-React Prot High Sens NT-Pro-B Natriuret Pep Total Protein Albumin Globulin Albumin/Globulin Ratio 25-OH Vitamin D Total Procalcitonin Ur L.pneumophila Ag 09/09/18 09/10/18 09/10/18 22:43 02:00 05:26 WBC RBC Hgb Hct MCV MCH MCHC RDW Plt Count MPV Neut % (Auto) Lymph % (Auto) [place] % (Auto) Eos % (Auto) Baso % (Auto) Lymph # (Auto) [place] # (Auto) Eos # (Auto) Baso # (Auto) Absolute Neuts (auto) APTT 76.2 H pCO2 pO2 HCO3 ABG pH ABG Total CO2 ABG O2 Saturation ABG O2 Content ABG Base Excess ABG Hemoglobin ABG Carboxyhemoglobin POC ABG HHb (Measured) ABG Methemoglobin ABG O2 Capacity Hgb O2 Saturation FiO2 Sodium Potassium Chloride Carbon Dioxide Anion Gap BUN Creatinine Est GFR ( Amer) Est GFR (Non-Af Amer) POC Glucose (mg/dL) 93 113 H Random Glucose Fructosamine Calcium Phosphorus Magnesium Total Bilirubin Direct Bilirubin AST ALT Alkaline Phosphatase C-React Prot High Sens NT-Pro-B Natriuret Pep Total Protein Albumin Globulin Albumin/Globulin Ratio 25-OH Vitamin D Total Procalcitonin Ur L.pneumophila Ag 09/10/18 09/10/18 09/10/18 05:40 05:40 06:10 WBC 10.4 RBC 4.88 Hgb 14.4 Hct 46.4 MCV 95.1 MCH 29.5 MCHC 31.0 RDW 14.8 H Plt Count 215 MPV 10.2 Neut % (Auto) 89.0 H Lymph % (Auto) 7.2 L [place] % (Auto) 3.7 Eos % (Auto) 0.0 L Baso % (Auto) 0.1 Lymph # (Auto) 0.8 L [place] # (Auto) 0.4 Eos # (Auto) 0.0 Baso # (Auto) 0.01 Absolute Neuts (auto) 9.24 H APTT pCO2 48 H pO2 93.0 HCO3 31.9 H ABG pH 7.43 ABG Total CO2 33.4 H ABG O2 Saturation 98.5 H ABG O2 Content 19.2 ABG Base Excess 6.4 H ABG Hemoglobin 14.2 ABG Carboxyhemoglobin 1.8 H POC ABG HHb (Measured) 1.5 ABG Methemoglobin 1.0 ABG O2 Capacity 19.5 Hgb O2 Saturation 95.6 FiO2 60.0 Sodium 142 Potassium 4.5 Chloride 101 Carbon Dioxide 34 H Anion Gap 11 BUN 53 H Creatinine 1.0 Est GFR ( Amer) > 60 Est GFR (Non-Af Amer) 54 POC Glucose (mg/dL) Random Glucose 114 H Fructosamine Calcium 8.0 L Phosphorus 4.3 Magnesium 1.7 Total Bilirubin 0.5 Direct Bilirubin 0.5 H AST 22 ALT 22 Alkaline Phosphatase 69 C-React Prot High Sens NT-Pro-B Natriuret Pep 4690 H Total Protein 5.3 L Albumin 2.5 L Globulin 2.7 Albumin/Globulin Ratio 0.9 L 25-OH Vitamin D Total Procalcitonin Ur L.pneumophila Ag Radiology Impressions: Radiology Impressions Extremity Ultrasound 09/08/18 00:00 IMPRESSION: No sonographic evidence for deep venous thrombosis in the visualized segments of both lower extremities. Abdomen Ultrasound 09/08/18 23:16 IMPRESSION: Mild hepatomegaly. Diffuse increased echogenicity in the liver may reflect hepatic steatosis however parenchymal infectious/ inflammatory etiologies cannot be entirely excluded. Clinical and laboratory correlation is advised. Cholelithiasis. No biliary dilatation. The right kidney is not visualized and may be obscured by bowel gas. Chest X-Ray 09/09/18 05:00 IMPRESSION: Stable position of endotracheal tube. No change in moderate right and small left effusions. Right lower lobe airspace disease may represent atelectasis or developing pneumonia. Follow-up is advised. EKG/Cardiology Studies: Cardiology / EKG Studies 09/09/18 07:00 EKG [ELECTROCARDIOGRAM] DAILY Comment: Reason For Exam: AMI 09/10/18 07:00 EKG [ELECTROCARDIOGRAM] DAILY Comment: Reason For Exam: AMI 09/11/18 07:00 EKG [ELECTROCARDIOGRAM] DAILY Comment: Reason For Exam: AMI Critical Care Progress Note - Nutrition Nutrition: Nutrition Category Date Time Status NPO Diet [DIET] Diets 09/09/18 Breakfast Ordered Attending/Attestation - Attestation I have personally seen and examined this patient.: Yes I have fully participated in the care of the patient.: Yes I have reviewed all pertinent clinical information: Yes Notes (Text): 09/10/18 07:[address] Brink note
--- NOTE | 2018-09-09 09:35 | RAD ---
Date of service: 09/09/2018 HISTORY: COPD COMPARISON: 09/08/2018 FINDINGS: Endotracheal tube terminates 1.6 cm proximal to the chidi. The right IJV line terminates at the cavoatrial junction. LUNGS: The lungs are well inflated. There is moderate pulmonary venous congestion. There is dense consolidation in the right medial lower lobe. There is a left retrocardiac opacity. PLEURA: Moderate right and small left pleural effusion. No pneumothorax CARDIOVASCULAR: Moderate cardiomegaly. No aortic atherosclerotic calcifications present. OSSEOUS STRUCTURES: Within normal limits for the patient's age. VISUALIZED UPPER ABDOMEN: Normal. OTHER FINDINGS: None. IMPRESSION: Stable position of endotracheal tube. No change in moderate right and small left effusions. Right lower lobe airspace disease may represent atelectasis or developing pneumonia. Follow-up is advised.
--- NOTE | 2018-09-09 09:44 | US ---
HISTORY: Leg pain and swelling. Evaluate for DVT PHYSICIAN(S): Nick Holt MD. TECHNIQUE: Duplex sonography and color-flow Doppler with graded compression were used to evaluate the deep venous systems of both lower extremities. FINDINGS: The exam is very limited by edema and the patient's inability to cooperate The visualized deep venous systems of both lower extremities are sonographically normal and compressible. Normal wave forms and augmentation are seen. There is no sonographic evidence for deep venous thrombosis in the visualized segments of both lower extremities. IMPRESSION: No sonographic evidence for deep venous thrombosis in the visualized segments of both lower extremities.
--- NOTE | 2018-09-09 09:45 | US ---
Date of service: 09/09/2018 HISTORY: SEPSIS/RUBI COMPARISON: None. TECHNIQUE: Sonographic evaluation of the abdomen. FINDINGS: LIVER: Measures 20.8 cm. There is diffuse increased l echogenicity of the liver parenchyma. There is a 1.2 cm nonspecific coarse calcification in the right hepatic lobe. There is a 1.1 x 1.0 x 0.9 cm simple cyst in the right hepatic lobe. No mass. No intrahepatic bile duct dilatation. GALLBLADDER: Multiple gallstones. No wall thickening or pericholecystic fluid. The sonographic Coley's sign is negative. COMMON BILE DUCT: Measures 5.6 mm. No stones. No dilatation. PANCREAS: Unremarkable as visualized. No mass. No ductal dilatation. RIGHT KIDNEY: Not visualized. LEFT KIDNEY: Measures 12.9cm. Normal echogenicity. No calculus, mass, or hydronephrosis. SPLEEN: Normal in size and contour. No mass. AORTA: No aneurysmal dilatation. IVC: Unremarkable. Positions OTHER FINDINGS: None. IMPRESSION: Mild hepatomegaly. Diffuse increased echogenicity in the liver may reflect hepatic steatosis however parenchymal infectious/ inflammatory etiologies cannot be entirely excluded. Clinical and laboratory correlation is advised. Cholelithiasis. No biliary dilatation. The right kidney is not visualized and may be obscured by bowel gas.
--- NOTE | 2018-09-09 09:59 | CP.PCM.PN ---
<Ketan Shrestha - Last Filed: 09/09/18 09:51> Subjective - Date & Time of Evaluation Date of Evaluation: 09/09/18 Time of Evaluation: 08:30 - Subjective Subjective: Ketan Shrestha D.O. PGY-3, Internal Medicine Resident, Infectious Disease Progress Note 73 year old female with a PMH of COPD and tobacco abuse who presented to [facility] [place] [facility] on 09/08/18 after she was found by her family members laying in her couch for about 3 days. Infectious disease consultation was requested for possible UTI vs BL pnemonia. Patient was seen and examined at bedside. Currently still intubated. Appears somewhat more awake. Objective - Vital Signs/Intake and Output Vital Signs (last 24 hours): Temp Pulse Resp BP Pulse Ox 98.8 F 67 18 113/58 L 95 09/08/18 20:00 09/09/18 08:40 09/08/18 22:20 09/09/18 09:04 09/09/18 08:40 Intake and Output: 09/09/18 09/09/18 06:59 18:59 Intake Total 2732 160 Output Total 1400 Balance 1332 160 - Medications Medications: Current Medications Acetaminophen (Tylenol 325mg Tab) 650 mg PO Q6 PRN PRN Reason: TEMP>=99.5F Acetaminophen (Tylenol 650 Mg Supp) 650 mg RC Q6H PRN PRN Reason: TEMP>=99.5F Allopurinol (Zyloprim) 100 mg PO DAILY [facility] Dextrose (Dextrose 50% Inj) 0 ml IV STAT PRN; Protocol PRN Reason: Hypoglycemia Protocol Furosemide (Lasix) 40 mg IVP Q12 [facility] Last Admin: 09/09/18 09:04 Dose: 40 mg Propofol (Diprivan) 1,000 mg in 100 mls @ 3.266 mls/hr IV .Q24H PRN; Protocol PRN Reason: TITRATE PER MD ORDER Last Titration: 09/09/18 08:00 Dose: 0 mcg/kg/min, 0 mls/hr Doxycycline Hyclate 100 mg/ (Sodium Chloride) 100 mls @ 100 mls/hr IVPB Q12 [facility]; Protocol Last Admin: 09/09/18 09:34 Dose: 100 mls/hr Heparin Sodium/Sodium Chloride (Heparin 86718 Units/250ml 1/2 Normal Saline) 25,000 units in 250 mls @ 19.922 mls/hr IV .[id number] PRN; Protocol PRN Reason: ADJUST RATE PER PROTOCOL Last Titration: 09/09/18 07:13 Dose: 13 units/kg/hr, 14.388 mls/hr Vancomycin HCl (Vancomycin 1gm) 1 gm in 250 mls @ 167 mls/hr IVPB DAILY [facility]; Protocol Last Admin: 09/09/18 09:02 Dose: 167 mls/hr Meropenem (Merrem Iv 1 Gm Premix) 1 gm in 50 mls @ 100 mls/hr IVPB Q12 [facility]; Protocol Stop: 09/17/18 22:01 Last Admin: 09/09/18 09:03 Dose: 100 mls/hr Dextrose (Dextrose 5% In Water 1000 Ml) 1,000 mls @ 0 mls/hr IV .Q0M PRN; Protocol PRN Reason: Hypoglycemia Protocol Insulin Human Lispro (Humalog High) 0 units SC Q6H [facility]; Protocol Last Admin: 09/09/18 06:14 Dose: Not Given Levalbuterol HCl (Xopenex) 0.63 mg IH [id number] [facility] Last Admin: 09/09/18 07:25 Dose: 0.63 mg Methylprednisolone (Solu-Medrol) 20 mg IVP Q12H [facility] Last Admin: 09/09/18 08:58 Dose: 20 mg Nicotine (Nicoderm Cq) 1 patch TD DAILY [facility] Last Admin: 09/09/18 09:00 Dose: 1 patch Nystatin (Nystop Topical Powder) 0 gm TOP Q6 [facility] Last Admin: 09/09/18 05:17 Dose: 1 pdr Nystatin (Mycostatin Cream) 0 ea TOP TID [facility] Last Admin: 09/09/18 09:14 Dose: 2 unit Ondansetron HCl (Zofran Inj) 4 mg IVP Q4H PRN PRN Reason: Nausea/Vomiting Pantoprazole Sodium (Protonix Inj) 40 mg IVP Q12 [facility] Last Admin: 09/09/18 09:00 Dose: 40 mg - Labs Labs: 09/09/18 05:35 09/09/18 06:47 PT 15.7 SECONDS (9.4-12.5) H 09/09/18 06:47 INR 1.39 09/09/18 06:47 APTT 81.3 Seconds (26.9-38.3) H 09/09/18 06:47 - Constitutional Appears: Unkempt, Chronically Ill, obese, intubated - Head Exam Head Exam: ATRAUMATIC, NORMOCEPHALIC - Eye Exam Eye Exam: EOMI. absent: Scleral icterus - ENT Exam ENT Exam: Mucous Membranes Dry, intubated - Neck Exam Additional comments: obese, soft - Respiratory Exam Respiratory Exam: Rhonchi - Cardiovascular Exam Cardiovascular Exam: RRR, +S1, +S2 - GI/Abdominal Exam GI & Abdominal Exam: Soft, erythematous lesions along skin folds - Extremities Exam Additional comments: chronic stasis changes of BLE, possible cellulitic changes to right LE - Neurological Exam Additional comments: intubated but tracking - Skin Skin Exam: Dry, Warm, erythema along skin folds Assessment and Plan - Assessment and Plan (Free Text) Assessment: 73 year old female with a PMH of COPD and tobacco abuse who presented to [facility] [place] [facility] on 09/08/18 after she was found by her family members laying in her couch for about 3 days. Infectious disease consultation was requested for possible UTI vs BL pnemonia. Plan: Severe sepsis Acute respiratory failure CAP Pleural effusions Procalcitonin, legionella ag, and strep ag pending Continue doxy/merrem/vanco day 2 CXR read reviewed Blood Cultures pending Urine cultures negative We will follow with you Patient was seen and examined and case to be discussed with attending physician. Thank you for the pleasure of participating in the care of this interesting patient. <Agapito Rojo - Last Filed: 09/09/18 12:22> Objective - Vital Signs/Intake and Output Vital Signs (last 24 hours): Temp Pulse Resp BP Pulse Ox 97.8 F 67 18 113/58 L 95 09/09/18 07:00 09/09/18 08:40 09/08/18 22:20 09/09/18 09:04 09/09/18 08:40 Intake and Output: 09/09/18 09/09/18 06:59 18:59 Intake Total 2732 160 Output Total 1400 Balance 1332 160 - Medications Medications: Current Medications Acetaminophen (Tylenol 325mg Tab) 650 mg PO Q6 PRN PRN Reason: TEMP>=99.5F Acetaminophen (Tylenol 650 Mg Supp) 650 mg RC Q6H PRN PRN Reason: TEMP>=99.5F Allopurinol (Zyloprim) 100 mg PO DAILY [facility] Dextrose (Dextrose 50% Inj) 0 ml IV STAT PRN; Protocol PRN Reason: Hypoglycemia Protocol Furosemide (Lasix) 40 mg IVP Q12 [facility] Last Admin: 09/09/18 09:04 Dose: 40 mg Propofol (Diprivan) 1,000 mg in 100 mls @ 3.266 mls/hr IV .Q24H PRN; Protocol PRN Reason: TITRATE PER MD ORDER Last Titration: 09/09/18 08:00 Dose: 0 mcg/kg/min, 0 mls/hr Doxycycline Hyclate 100 mg/ (Sodium Chloride) 100 mls @ 100 mls/hr IVPB Q12 [facility]; Protocol Last Admin: 09/09/18 09:34 Dose: 100 mls/hr Heparin Sodium/Sodium Chloride (Heparin 66902 Units/250ml 1/2 Normal Saline) 25,000 units in 250 mls @ 19.922 mls/hr IV .[id number] PRN; Protocol PRN Reason: ADJUST RATE PER PROTOCOL Last Titration: 09/09/18 07:13 Dose: 13 units/kg/hr, 14.388 mls/hr Vancomycin HCl (Vancomycin 1gm) 1 gm in 250 mls @ 167 mls/hr IVPB DAILY [facility]; Protocol Last Admin: 09/09/18 09:02 Dose: 167 mls/hr Meropenem (Merrem Iv 1 Gm Premix) 1 gm in 50 mls @ 100 mls/hr IVPB Q12 [facility]; Protocol Stop: 09/17/18 22:01 Last Admin: 09/09/18 09:03 Dose: 100 mls/hr Dextrose (Dextrose 5% In Water 1000 Ml) 1,000 mls @ 0 mls/hr IV .Q0M PRN; Protocol PRN Reason: Hypoglycemia Protocol Insulin Human Lispro (Humalog High) 0 units SC Q6H [facility]; Protocol Last Admin: 09/09/18 11:47 Dose: Not Given Levalbuterol HCl (Xopenex) 0.63 mg IH [id number] [facility] Last Admin: 09/09/18 07:25 Dose: 0.63 mg Methylprednisolone (Solu-Medrol) 20 mg IVP Q12H [facility] Last Admin: 09/09/18 08:58 Dose: 20 mg Nicotine (Nicoderm Cq) 1 patch TD DAILY [facility] Last Admin: 09/09/18 09:00 Dose: 1 patch Nystatin (Nystop Topical Powder) 0 gm TOP Q6 [facility] Last Admin: 09/09/18 11:48 Dose: 2 pdr Nystatin (Mycostatin Cream) 0 ea TOP TID [facility] Last Admin: 09/09/18 09:14 Dose: 2 unit Ondansetron HCl (Zofran Inj) 4 mg IVP Q4H PRN PRN Reason: Nausea/Vomiting Pantoprazole Sodium (Protonix Inj) 40 mg IVP Q12 [facility] Last Admin: 09/09/18 09:00 Dose: 40 mg - Labs Labs: 09/09/18 05:35 09/09/18 06:47 PT 15.7 SECONDS (9.4-12.5) H 09/09/18 06:47 INR 1.39 09/09/18 06:47 APTT 81.3 Seconds (26.9-38.3) H 09/09/18 06:47 Attending/Attestation - Attestation I have personally seen and examined this patient.: Yes I have fully participated in the care of the patient.: Yes I have reviewed all pertinent clinical information, including history, physical exam and plan: Yes
--- NOTE | 2018-09-09 10:21 | PN ---
DATE: 09/09/2018 SUBJECTIVE: The patient seen and examined at bedside. She is comfortable. She is off of propofol and is alert, awake and maintained nonverbal communication. The patient still requires 80% FIO2, to maintain her oxygen saturation more than 93%. PEEP was increased from 5 cm of water to 10 cm of water. She is on PRVC 450/200/10/80%. PHYSICAL EXAMINATION: VITAL SIGNS: Blood pressure 146/81, heart rate 68, oxygen saturation 93%, end-tidal CO2 on the monitor 36, respiratory rate 18. HEENT: Head and neck atraumatic. LUNGS: Clear to auscultation bilaterally. HEART: Regular rate and rhythm. S1 and S2 normal. ABDOMEN: Soft, nontender, nondistended. MUSCULOSKELETAL: There is acute cellulitis in the right lower extremities. Multiple areas of superficial fungus also present. NEUROLOGIC: The patient moves all extremities spontaneously. SKIN: Moist. PSYCHIATRIC: The patient is alert, awake and comfortable. LABORATORY DATA: Sodium 138, potassium 4.9, chloride 100, carbon dioxide 34, BUN 47, creatinine 1, glucose 127. Troponin 0.08 down from 0.13. ProBNP 13,100. Blood gas on 80% and PRVC shows 7.38/52/63, WBC 9.5, hemoglobin 15.6, eosinophils 0, platelet count 191. Chest x-ray showed bilateral vascular congestion. Chest CT showed subsegmental PE with small right pleural effusion and changes suspicious for cardiomegaly. MEDICATIONS: Tylenol p.r.n., allopurinol, doxycycline, Lasix 40 mg IV every 12 hours, heparin drip, Xopenex every 6 hours, meropenem, Solu-Medrol 20 mg IV every 12 hours, nicotine patch, Protonix, vancomycin. ASSESSMENT AND PLAN: This is a 73-year-old lady whose history of present illness and past medical history is limited as she presented to [facility] in severe respiratory distress and was intubated in emergency room. She was later found to have PE and some vascular congestion on CXR as well. Pulmonary embolism complicated by acute right ventricular failure on the background of severe sepsis with acute cellulitis of the lower extremities as well as possible community-acquired pneumonia. Severe sepsis per se may cause Rv strain and thus exacerbate acute RV failure causes by PE Neuro: The patient is doing well off of sedation. She is alert, awake and maintained nonverbal communication. She appears to understand what is going on with her. Frequent reorientation also provided. Pulmonary: The patient requires 80% FIO2. However, she is doing pretty well on pressure support 04/09. She is pulling from 400 to 600 of tidal volume and breathing about 15 times per minute. Being on pressure support did not really affect her oxygen saturation and we will maintain her on pressure support as tolerated. Meanwhile, bedside echo was done while waiting for formal and official echo. Right ventricle appears to be dilated and hypokinetic. The patient is already on therapeutic anticoagulation. It is possible that right ventricular failure may be of multifactorial origin which includes not only pulmonary embolism but also longstanding pulmonary disease, or underlying primary cardiac disease, including LV failure. I agree with conservative fluid and oxygen management at the present time. I will be careful in titrating her PEEP as it may worsen her right ventricular function by increasing RV afterload, however provided CXR shows vascular congestion, I think it is prudent to go up on PEEP, even before LV function evaluated by formal echo (to try and wean fi02 down). We might consider dobutamine therapy as well. We will continue with daily sedation vacation, daily weaning trials, head of bed elevated >35 degrees and oral hygiene. [id number] tidal volume ventilation as well as maintaining plateau pressure less than 25 cm of water will be adhered to. The patient's plateau pressure today is 20. Peak pressure 26. (These are checked when no spontaneous breaths were seen--prior to stopping sedation and switching to PST. Cardiovascular: RV failure. PE. CXR: increase vascular congestion-->LV CHF as well?. Patient is on therapeutic anticoagulation, diuresis. Formal echocardiogram is pending. Troponin is trending down. Cardiology consult is pending. I think that small troponin leak relates to right ventricle strain in the aforementioned situation. Infectious Disease: The patient has acute cellulitis of lower extremities and possibility of community-acquired pneumonia cannot be ruled out as well based on CAT scan and her presentation. The patient is on vancomycin, meropenem and doxycycline. Blood culture, urine culture, urine for Legionella and streptococcal antigen were sent. Procalcitonin is pending. CRP is pending. We will continue with small-dose steroids as well, especially that the patient likely has chronic obstructive pulmonary disease based on compensated respiratory acidosis. Renal: The patient's acute kidney injury improved, she is making good urine. Her creatinine is down to 1 from 1.2. We will maintain euvolemia, euglycemia and a mean arterial pressure more than 65. We will avoid hyperchloremia. We will avoid nephrotoxic medication but not at the expense of treating underlying disease. Endocrine: We will maintain blood glucose within 140 to 180 range according to night sugar trial. ccm time 40 min Byron Brink MD MTDD
--- NOTE | 2018-09-09 11:25 | CON ---
DATE OF CONSULTATION: 09/09/2018 CARDIOLOGY CONSULTATION HISTORY: The patient is a 73-year-old woman, who presents with respiratory failure. She was found at home after being on a couch for 3 days. Workup reveals pulmonary embolism. The patient's past medical history is unknown. MEDICATIONS: Her medications at home are unknown Currently, the patient is a heavy-set woman in the ICU on a ventilator and sedated. PHYSICAL EXAMINATION: VITAL SIGNS: Blood pressure is 113/58, heart rate is in the 60s, normal sinus rhythm. NECK: Negative JVD. LUNGS: Decreased breath sounds without rales. CARDIAC: Heart rate S1, S2 without murmurs. EXTREMITIES: Chronic edematous changes noted. LABORATORY DATA: Troponin was 0.13 and now 0.08. BUN and creatinine are 47 and 1, glucose [place] [address]. Her T4 is 3.4. White count is 9.5 with a hemoglobin of 15.6. Impression: 1. Respiratory failure. 2. Pulmonary embolism. 3. Chronic edema in the lower extremities. 4. Questionable pulmonary hypertension. 5. Obesity. PLAN: Given these findings, the patient is currently on anticoagulation. We will arrange for an echocardiogram to evaluate her LV function. Nick Rowley MD
--- NOTE | 2018-09-09 12:19 | CP.PCM.CON ---
History of Present Illness - History of Present Illness History of Present Illness: Nephrology Consultation Note: Assessment: critical likely CKD 3 with UA 30 prot. renal imaging atrophy scarring Rt kidney and eGFR in 50s COPD/CHF exacerbation with PNA, acute PE, DM and sepsis morbid obesity acute on chronic hypercapnic respi failure with renal compensation active smoker hyperkalemia Plan No acute need for renal replacement therapy at this time. Hypertension control with meds as ordered. Maintain hemodynamics stable. Avoid hypotension. Patient not on ACEI/ARB at present, consider to add soon Monitor Input/Output, daily weights and renal function with basic metabolic panel continue with loop diuretics Check urine spot protein/creatinine, albumin/creatinine ratio full renal imaging pending (await CT scan) Dose meds/antibiotics for GFR >50 Glycemic control. once stable and acute process resolved, pt will need weight loss, smoking cessation, lifestyle modifications Further work up/management as per primary team Thanks for allowing me to participate in care of your patient. Will follow patient with you. Please call if any Qs Dr David Harrison Office: [phone] Chief Complaint; unable Reason for consult: Acute Kidney Injury HPI: Pt is a 73 F with hx of heavy smoking, no medical follow ups presented with complaints of SOB and respi distress intubated and admitted to ICU. foudn to have CHF exacerbation with PNA, PE, DM and sepsis renal consult for abnormal imaging and renal fxn eval Denies OTC/herbal meds or NSAIDs Noted recent iodinated contrast exposure as CTA. No obvious episodes of low BP. ROS: pt intubated Physical Examination: General Appearance: ill appearing orally intubated . Vitals reviewed and noted as below Head; Atraumatic, normocephalic ENT: intubated EYES: Pupils are equal, round and reactive to light accommodation. Eye muscles and extraocular movement intact. Sclera is anicteric. Neck; supple no lymphadenopathy, no thyromegaly or bruit Lungs: Normal respiratory rate/effort. Breath sounds bilateral reduced at bases Heart: Normal rate. s1s2 normal. No rub or gallop. Extremities: 2+ edema. No varicose veins Neurological: Patient is sedated Skin: Warm and dry. Normal turgor. No rash. Palpitation: Normal elasticity for age Abdomen: Abdomen is soft. Bowel sounds +. There is no abdominal tenderness, no guarding/rigidity no organomegaly Psych: unable MSK: no joint tenderness or swelling. Digits and nails normal, no deformity : kidney or bladder not palpable Labs/imaging reviewed. Past medical history, past surgical history, family history, social history, allergy reviewed and noted as below Family hx: no hx of CKD. Rest non-contributory UA 30 prot. renal imaging atrophy scarring Rt kidnsy Past Patient History - Past Social History Smoking Status: Current Some Days Smoker - CARDIAC Hx Cardiac Disorders: Yes - PULMONARY Hx Respiratory Disorders: Yes Hx Emphysema: Yes - NEUROLOGICAL Hx Neurological Disorder: Yes Other/Comment: feet cold totouch - HEENT Hx HEENT Problems: No - RENAL Hx Chronic Kidney Disease: No - ENDOCRINE/METABOLIC Hx Endocrine Disorders: No - HEMATOLOGICAL/ONCOLOGICAL Hx Blood Disorders: No - INTEGUMENTARY Hx Dermatological Problems: Yes Other/Comment: red skin to chest abd ble and feet, fungal rash to under b/l breasts, pubic area, under abd folds, b/l groin, back, buttocks, sacrum, hips, hard dry heels to feet, dry skin feet - MUSCULOSKELETAL/RHEUMATOLOGICAL Hx Falls: No - GASTROINTESTINAL Hx Gastrointestinal Disorders: Yes (appetite changes, obese) - GENITOURINARY/GYNECOLOGICAL Hx Genitourinary Disorders: Yes Hx Incontinence: Yes - PSYCHIATRIC Hx Depression: No Hx Emotional Abuse: No Hx Physical Abuse: No Hx Substance Use: No - SURGICAL HISTORY Hx Surgeries: No Meds Allergies/Adverse Reactions: Allergies Allergy/AdvReac Type Severity Reaction Status Date / Time No Known Allergies Allergy Verified 09/08/18 11:11 - Medications Medications: Current Medications Acetaminophen (Tylenol 325mg Tab) 650 mg PO Q6 PRN PRN Reason: TEMP>=99.5F Acetaminophen (Tylenol 650 Mg Supp) 650 mg RC Q6H PRN PRN Reason: TEMP>=99.5F Allopurinol (Zyloprim) 100 mg PO DAILY [facility] Dextrose (Dextrose 50% Inj) 0 ml IV STAT PRN; Protocol PRN Reason: Hypoglycemia Protocol Furosemide (Lasix) 40 mg IVP Q12 SABIHA Last Admin: 09/09/18 09:04 Dose: 40 mg Propofol (Diprivan) 1,000 mg in 100 mls @ 3.266 mls/hr IV .Q24H PRN; Protocol PRN Reason: TITRATE PER MD ORDER Last Titration: 09/09/18 08:00 Dose: 0 mcg/kg/min, 0 mls/hr Doxycycline Hyclate 100 mg/ (Sodium Chloride) 100 mls @ 100 mls/hr IVPB Q12 SABIHA; Protocol Last Admin: 09/09/18 09:34 Dose: 100 mls/hr Heparin Sodium/Sodium Chloride (Heparin 66810 Units/250ml 1/2 Normal Saline) 25,000 units in 250 mls @ 19.922 mls/hr IV .[id number] PRN; Protocol PRN Reason: ADJUST RATE PER PROTOCOL Last Titration: 09/09/18 07:13 Dose: 13 units/kg/hr, 14.388 mls/hr Vancomycin HCl (Vancomycin 1gm) 1 gm in 250 mls @ 167 mls/hr IVPB DAILY SABIHA; Protocol Last Admin: 09/09/18 09:02 Dose: 167 mls/hr Meropenem (Merrem Iv 1 Gm Premix) 1 gm in 50 mls @ 100 mls/hr IVPB Q12 SABIHA; Protocol Stop: 09/17/18 22:01 Last Admin: 09/09/18 09:03 Dose: 100 mls/hr Dextrose (Dextrose 5% In Water 1000 Ml) 1,000 mls @ 0 mls/hr IV .Q0M PRN; Protocol PRN Reason: Hypoglycemia Protocol Insulin Human Lispro (Humalog High) 0 units SC Q6H SABIHA; Protocol Last Admin: 09/09/18 11:47 Dose: Not Given Levalbuterol HCl (Xopenex) 0.63 mg IH [id number] SABIHA Last Admin: 09/09/18 07:25 Dose: 0.63 mg Methylprednisolone (Solu-Medrol) 20 mg IVP Q12H SABIHA Last Admin: 09/09/18 08:58 Dose: 20 mg Nicotine (Nicoderm Cq) 1 patch TD DAILY SABIHA Last Admin: 09/09/18 09:00 Dose: 1 patch Nystatin (Nystop Topical Powder) 0 gm TOP Q6 SABIHA Last Admin: 09/09/18 11:48 Dose: 2 pdr Nystatin (Mycostatin Cream) 0 ea TOP TID SABIHA Last Admin: 09/09/18 09:14 Dose: 2 unit Ondansetron HCl (Zofran Inj) 4 mg IVP Q4H PRN PRN Reason: Nausea/Vomiting Pantoprazole Sodium (Protonix Inj) 40 mg IVP Q12 SABIHA Last Admin: 09/09/18 09:00 Dose: 40 mg Results - Vital Signs Recent Vital Signs: Last Vital Signs Temp 97.8 F 09/09/18 07:00 Pulse 67 09/09/18 08:40 Resp 18 09/08/18 22:20 BP 113/58 L 09/09/18 09:04 Pulse Ox 95 09/09/18 08:40 - Labs Result Diagrams: 09/09/18 05:35 09/09/18 06:47 Labs: Laboratory Results - last 24 hr 09/08/18 09/08/18 09/08/18 12:00 12:00 12:00 WBC 10.9 RBC 5.58 Hgb 17.0 H Hct 55.5 H* MCV 99.5 MCH 30.5 MCHC 30.6 L RDW 14.6 H Plt Count 228 MPV 10.3 Neut % (Auto) 86.6 H Lymph % (Auto) 6.7 L Mcminn % (Auto) 6.5 H Eos % (Auto) 0.0 L Baso % (Auto) 0.2 Lymph # (Auto) 0.7 L [place] # (Auto) 0.7 H Eos # (Auto) 0.0 Baso # (Auto) 0.02 Absolute Neuts (auto) 9.40 H PT 14.9 H INR 1.32 APTT 34.5 D-Dimer, Quantitative pCO2 pO2 52 HCO3 ABG pH ABG Total CO2 ABG O2 Saturation ABG O2 Content ABG Base Excess ABG Hemoglobin ABG Carboxyhemoglobin POC ABG HHb (Measured) ABG Methemoglobin ABG O2 Capacity ABG Potassium VBG pH 7.20 L VBG pCO2 90.0 H* VBG HCO3 35.2 H VBG Total CO2 38.0 H VBG O2 Sat (Calc) 86.2 H VBG Base Excess 4.0 H VBG Potassium 5.5 H Hgb O2 Saturation Sodium 137.0 Chloride 100.0 Glucose 128 H Lactate 1.7 Mechanical Rate FiO2 21.0 Tidal Volume PEEP Crit Value Called To Renee hannon Crit Value Called By 3769 Blood Gas Notified Time 1215 Potassium Carbon Dioxide Anion Gap BUN Creatinine Est GFR ( Amer) Est GFR (Non-Af Amer) POC Glucose (mg/dL) Random Glucose Hemoglobin A1c Fructosamine Uric Acid Calcium Phosphorus Magnesium Total Bilirubin Direct Bilirubin AST ALT Alkaline Phosphatase Total Creatine Kinase Troponin I NT-Pro-B Natriuret Pep Total Protein Albumin Globulin Albumin/Globulin Ratio Triglycerides Cholesterol LDL Cholesterol Direct HDL Cholesterol Free T4 Thyroxine (T4) TSH 3rd Generation Arterial Blood Potassium Venous Blood Potassium 5.5 H Urine Color Urine Appearance Urine pH Ur Specific [place] Urine Protein Urine Glucose (UA) Urine Ketones Urine Blood Urine Nitrate Urine Bilirubin Urine Urobilinogen Ur Leukocyte Esterase Urine RBC Urine WBC Ur Epithelial Cells Hyaline Casts Urine Opiates Screen Urine Methadone Screen Ur Barbiturates Screen Ur Phencyclidine Scrn Ur Amphetamines Screen U Benzodiazepines Scrn U Oth Cocaine Metabols U Cannabinoids Screen 09/08/18 09/08/18 09/08/18 12:30 12:35 12:50 WBC RBC Hgb Hct MCV MCH MCHC RDW Plt Count MPV Neut % (Auto) Lymph % (Auto) Mcminn % (Auto) Eos % (Auto) Baso % (Auto) Lymph # (Auto) [place]minn # (Auto) Eos # (Auto) Baso # (Auto) Absolute Neuts (auto) PT INR APTT D-Dimer, Quantitative pCO2 73 H* pO2 108.0 H HCO3 33.5 H ABG pH 7.27 L ABG Total CO2 35.7 H ABG O2 Saturation 98.4 H ABG O2 Content ABG Base Excess 4.2 H ABG Hemoglobin ABG Carboxyhemoglobin POC ABG HHb (Measured) ABG Methemoglobin ABG O2 Capacity ABG Potassium 5.1 VBG pH VBG pCO2 VBG HCO3 VBG Total CO2 VBG O2 Sat (Calc) VBG Base Excess VBG Potassium Hgb O2 Saturation Sodium 136.0 Chloride 102.0 Glucose 120 H Lactate 1.2 Mechanical Rate 18 FiO2 100.0 Tidal Volume 400 PEEP 5 Crit Value Called To Renee hannon Crit Value Called By 3769 Blood Gas Notified Time 1300 Potassium Carbon Dioxide Anion Gap BUN Creatinine Est GFR ( Amer) Est GFR (Non-Af Amer) POC Glucose (mg/dL) Random Glucose Hemoglobin A1c 6.8 H Fructosamine Uric Acid 8.0 H Calcium Phosphorus Magnesium Total Bilirubin Direct Bilirubin AST ALT Alkaline Phosphatase Total Creatine Kinase 152 Troponin I NT-Pro-B Natriuret Pep Total Protein Albumin Globulin Albumin/Globulin Ratio Triglycerides Cholesterol LDL Cholesterol Direct HDL Cholesterol Free T4 Thyroxine (T4) TSH 3rd Generation Arterial Blood Potassium 5.1 Venous Blood Potassium Urine Color Urine Appearance Urine pH Ur Specific [place] Urine Protein Urine Glucose (UA) Urine Ketones Urine Blood Urine Nitrate Urine Bilirubin Urine Urobilinogen Ur Leukocyte Esterase Urine RBC Urine WBC Ur Epithelial Cells Hyaline Casts Urine Opiates Screen Urine Methadone Screen Ur Barbiturates Screen Ur Phencyclidine Scrn Ur Amphetamines Screen U Benzodiazepines Scrn U Oth Cocaine Metabols U Cannabinoids Screen 09/08/18 09/08/18 09/08/18 13:15 13:25 19:40 WBC RBC Hgb Hct MCV MCH MCHC RDW Plt Count MPV Neut % (Auto) Lymph % (Auto) Mcminn % (Auto) Eos % (Auto) Baso % (Auto) Lymph # (Auto) [place] # (Auto) Eos # (Auto) Baso # (Auto) Absolute Neuts (auto) PT INR APTT D-Dimer, Quantitative pCO2 pO2 HCO3 ABG pH ABG Total CO2 ABG O2 Saturation ABG O2 Content ABG Base Excess ABG Hemoglobin ABG Carboxyhemoglobin POC ABG HHb (Measured) ABG Methemoglobin ABG O2 Capacity ABG Potassium VBG pH VBG pCO2 VBG HCO3 VBG Total CO2 VBG O2 Sat (Calc) VBG Base Excess VBG Potassium Hgb O2 Saturation Sodium 139 Chloride 99 Glucose Lactate Mechanical Rate FiO2 Tidal Volume PEEP Crit Value Called To Crit Value Called By Blood Gas Notified Time Potassium 5.4 H Carbon Dioxide 35 H Anion Gap 11 BUN 47 H Creatinine 1.2 Est GFR ( Amer) 53 Est GFR (Non-Af Amer) 44 POC Glucose (mg/dL) Random Glucose 115 H Hemoglobin A1c Fructosamine 188 L Uric Acid Calcium 9.0 Phosphorus 5.8 H Magnesium 1.9 Total Bilirubin 1.0 Direct Bilirubin AST 36 ALT 25 Alkaline Phosphatase 92 Total Creatine Kinase Troponin I 0.11 NT-Pro-B Natriuret Pep 88381 H Total Protein 6.6 Albumin 3.2 Globulin 3.4 Albumin/Globulin Ratio 1.0 L Triglycerides Cholesterol LDL Cholesterol Direct HDL Cholesterol Free T4 Thyroxine (T4) TSH 3rd Generation Arterial Blood Potassium Venous Blood Potassium Urine Color Yellow Urine Appearance Turbid Urine pH 6.0 Ur Specific [place] 1.020 Urine Protein 30 H Urine Glucose (UA) Negative Urine Ketones Negative Urine Blood Negative Urine Nitrate Negative Urine Bilirubin Small H Urine Urobilinogen 1.0 H Ur Leukocyte Esterase Negative Urine RBC 5 - 10 H Urine WBC None Ur Epithelial Cells 3 - 4 Hyaline Casts 0 - 2 Urine Opiates Screen Urine Methadone Screen Ur Barbiturates Screen Ur Phencyclidine Scrn Ur Amphetamines Screen U Benzodiazepines Scrn U Oth Cocaine Metabols U Cannabinoids Screen 09/08/18 09/08/18 09/08/18 19:40 19:40 19:40 WBC RBC Hgb Hct MCV MCH MCHC RDW Plt Count MPV Neut % (Auto) Lymph % (Auto) Mcminn % (Auto) Eos % (Auto) Baso % (Auto) Lymph # (Auto) [place]min[place] # (Auto) Eos # (Auto) Baso # (Auto) Absolute Neuts (auto) PT INR APTT D-Dimer, Quantitative 1600 H pCO2 pO2 HCO3 ABG pH ABG Total CO2 ABG O2 Saturation ABG O2 Content ABG Base Excess ABG Hemoglobin ABG Carboxyhemoglobin POC ABG HHb (Measured) ABG Methemoglobin ABG O2 Capacity ABG Potassium VBG pH VBG pCO2 VBG HCO3 VBG Total CO2 VBG O2 Sat (Calc) VBG Base Excess VBG Potassium Hgb O2 Saturation Sodium Chloride Glucose Lactate Mechanical Rate FiO2 Tidal Volume PEEP Crit Value Called To Crit Value Called By Blood Gas Notified Time Potassium Carbon Dioxide Anion Gap BUN Creatinine Est GFR ( Amer) Est GFR (Non-Af Amer) POC Glucose (mg/dL) Random Glucose Hemoglobin A1c Fructosamine Uric Acid Calcium Phosphorus Magnesium Total Bilirubin Direct Bilirubin AST ALT Alkaline Phosphatase Total Creatine Kinase 123 Troponin I 0.13 H* NT-Pro-B Natriuret Pep Total Protein Albumin Globulin Albumin/Globulin Ratio Triglycerides Cholesterol LDL Cholesterol Direct HDL Cholesterol Free T4 0.83 Thyroxine (T4) 3.4 L TSH 3rd Generation 2.48 Arterial Blood Potassium Venous Blood Potassium Urine Color Urine Appearance Urine pH Ur Specific [place] Urine Protein Urine Glucose (UA) Urine Ketones Urine Blood Urine Nitrate Urine Bilirubin Urine Urobilinogen Ur Leukocyte Esterase Urine RBC Urine WBC Ur Epithelial Cells Hyaline Casts Urine Opiates Screen Urine Methadone Screen Ur Barbiturates Screen Ur Phencyclidine Scrn Ur Amphetamines Screen U Benzodiazepines Scrn U Oth Cocaine Metabols U Cannabinoids Screen 09/08/18 09/08/18 09/08/18 20:10 23:15 23:30 WBC RBC Hgb Hct MCV MCH MCHC RDW Plt Count MPV Neut % (Auto) Lymph % (Auto) [place]min[place] % (Auto) Eos % (Auto) Baso % (Auto) Lymph # (Auto) Mcminn # (Auto) Eos # (Auto) Baso # (Auto) Absolute Neuts (auto) PT INR APTT D-Dimer, Quantitative pCO2 38 pO2 98.0 HCO3 27.7 ABG pH 7.47 H ABG Total CO2 28.9 H ABG O2 Saturation 99.0 H ABG O2 Content 20.9 ABG Base Excess 3.9 H ABG Hemoglobin 15.5 ABG Carboxyhemoglobin 2.2 H POC ABG HHb (Measured) 1.0 ABG Methemoglobin 1.2 ABG O2 Capacity 21.1 ABG Potassium VBG pH VBG pCO2 VBG HCO3 VBG Total CO2 VBG O2 Sat (Calc) VBG Base Excess VBG Potassium Hgb O2 Saturation 95.6 Sodium Chloride Glucose Lactate Mechanical Rate FiO2 80.0 Tidal Volume PEEP Crit Value Called To Crit Value Called By Blood Gas Notified Time Potassium Carbon Dioxide Anion Gap BUN Creatinine Est GFR ( Amer) Est GFR (Non-Af Amer) POC Glucose (mg/dL) Random Glucose Hemoglobin A1c Fructosamine Uric Acid Calcium Phosphorus Magnesium Total Bilirubin Direct Bilirubin AST ALT Alkaline Phosphatase Total Creatine Kinase 79 Troponin I 0.08 D NT-Pro-B Natriuret Pep Total Protein Albumin Globulin Albumin/Globulin Ratio Triglycerides Cholesterol LDL Cholesterol Direct HDL Cholesterol Free T4 Thyroxine (T4) TSH 3rd Generation Arterial Blood Potassium Venous Blood Potassium Urine Color Urine Appearance Urine pH Ur Specific [place] Urine Protein Urine Glucose (UA) Urine Ketones Urine Blood Urine Nitrate Urine Bilirubin Urine Urobilinogen Ur Leukocyte Esterase Urine RBC Urine WBC Ur Epithelial Cells Hyaline Casts Urine Opiates Screen Negative Urine Methadone Screen Negative Ur Barbiturates Screen Negative Ur Phencyclidine Scrn Negative Ur Amphetamines Screen Negative U Benzodiazepines Scrn Negative U Oth Cocaine Metabols Negative U Cannabinoids Screen Negative 09/08/18 09/09/18 09/09/18 23:52 00:40 05:35 WBC 9.5 RBC 5.26 Hgb 15.6 Hct 50.2 H MCV 95.4 D MCH 29.7 MCHC 31.1 RDW 14.6 H Plt Count 191 MPV 10.0 Neut % (Auto) 89.8 H Lymph % (Auto) 6.3 L [place]min[place] % (Auto) 3.9 Eos % (Auto) 0.0 L Baso % (Auto) 0.0 Lymph # (Auto) 0.6 L [place]min[place] # (Auto) 0.4 Eos # (Auto) 0.0 Baso # (Auto) 0.00 Absolute Neuts (auto) 8.52 H PT INR APTT 184.9 H* D-Dimer, Quantitative pCO2 pO2 HCO3 ABG pH ABG Total CO2 ABG O2 Saturation ABG O2 Content ABG Base Excess ABG Hemoglobin ABG Carboxyhemoglobin POC ABG HHb (Measured) ABG Methemoglobin ABG O2 Capacity ABG Potassium VBG pH VBG pCO2 VBG HCO3 VBG Total CO2 VBG O2 Sat (Calc) VBG Base Excess VBG Potassium Hgb O2 Saturation Sodium Chloride Glucose Lactate Mechanical Rate FiO2 Tidal Volume PEEP Crit Value Called To Crit Value Called By Blood Gas Notified Time Potassium Carbon Dioxide Anion Gap BUN Creatinine Est GFR ( Amer) Est GFR (Non-Af Amer) POC Glucose (mg/dL) 154 H Random Glucose Hemoglobin A1c Fructosamine Uric Acid Calcium Phosphorus Magnesium Total Bilirubin Direct Bilirubin AST ALT Alkaline Phosphatase Total Creatine Kinase Troponin I NT-Pro-B Natriuret Pep Total Protein Albumin Globulin Albumin/Globulin Ratio Triglycerides Cholesterol LDL Cholesterol Direct HDL Cholesterol Free T4 Thyroxine (T4) TSH 3rd Generation Arterial Blood Potassium Venous Blood Potassium Urine Color Urine Appearance Urine pH Ur Specific [place] Urine Protein Urine Glucose (UA) Urine Ketones Urine Blood Urine Nitrate Urine Bilirubin Urine Urobilinogen Ur Leukocyte Esterase Urine RBC Urine WBC Ur Epithelial Cells Hyaline Casts Urine Opiates Screen Urine Methadone Screen Ur Barbiturates Screen Ur Phencyclidine Scrn Ur Amphetamines Screen U Benzodiazepines Scrn U Oth Cocaine Metabols U Cannabinoids Screen 09/09/18 09/09/18 09/09/18 05:55 05:58 06:47 WBC RBC Hgb Hct MCV MCH MCHC RDW Plt Count MPV Neut % (Auto) Lymph % (Auto) [place]min[place] % (Auto) Eos % (Auto) Baso % (Auto) Lymph # (Auto) [place]min[place] # (Auto) Eos # (Auto) Baso # (Auto) Absolute Neuts (auto) PT INR APTT D-Dimer, Quantitative pCO2 52 H pO2 63.0 L HCO3 30.8 H ABG pH 7.38 ABG Total CO2 32.4 H ABG O2 Saturation 94.2 L ABG O2 Content 19.7 ABG Base Excess 4.2 H ABG Hemoglobin 15.4 ABG Carboxyhemoglobin 2.3 H POC ABG HHb (Measured) 5.6 H ABG Methemoglobin 1.1 ABG O2 Capacity 20.9 ABG Potassium VBG pH VBG pCO2 VBG HCO3 VBG Total CO2 VBG O2 Sat (Calc) VBG Base Excess VBG Potassium Hgb O2 Saturation 91.0 L Sodium 138 Chloride 100 Glucose Lactate Mechanical Rate FiO2 80.0 Tidal Volume PEEP Crit Value Called To Crit Value Called By Blood Gas Notified Time Potassium 4.9 Carbon Dioxide 34 H Anion Gap 8 L BUN 47 H Creatinine 1.0 Est GFR ( Amer) > 60 Est GFR (Non-Af Amer) 54 POC Glucose (mg/dL) 117 H Random Glucose 127 H Hemoglobin A1c Fructosamine Uric Acid Calcium 8.4 Phosphorus 4.6 H Magnesium 1.8 Total Bilirubin 0.5 Direct Bilirubin 0.5 H AST 28 ALT 22 Alkaline Phosphatase 75 Total Creatine Kinase Troponin I NT-Pro-B Natriuret Pep 72178 H Total Protein 5.6 L Albumin 2.7 L Globulin 2.9 Albumin/Globulin Ratio 1.0 L Triglycerides 121 Cholesterol 90 L LDL Cholesterol Direct 50 HDL Cholesterol 21 L Free T4 Thyroxine (T4) TSH 3rd Generation Arterial Blood Potassium Venous Blood Potassium Urine Color Urine Appearance Urine pH Ur Specific [place] Urine Protein Urine Glucose (UA) Urine Ketones Urine Blood Urine Nitrate Urine Bilirubin Urine Urobilinogen Ur Leukocyte Esterase Urine RBC Urine WBC Ur Epithelial Cells Hyaline Casts Urine Opiates Screen Urine Methadone Screen Ur Barbiturates Screen Ur Phencyclidine Scrn Ur Amphetamines Screen U Benzodiazepines Scrn U Oth Cocaine Metabols U Cannabinoids Screen 09/09/18 06:47 WBC RBC Hgb Hct MCV MCH MCHC RDW Plt Count MPV Neut % (Auto) Lymph % (Auto) [place] % (Auto) Eos % (Auto) Baso % (Auto) Lymph # (Auto) [place]min[place] # (Auto) Eos # (Auto) Baso # (Auto) Absolute Neuts (auto) PT 15.7 H INR 1.39 APTT 81.3 H D-Dimer, Quantitative pCO2 pO2 HCO3 ABG pH ABG Total CO2 ABG O2 Saturation ABG O2 Content ABG Base Excess ABG Hemoglobin ABG Carboxyhemoglobin POC ABG HHb (Measured) ABG Methemoglobin ABG O2 Capacity ABG Potassium VBG pH VBG pCO2 VBG HCO3 VBG Total CO2 VBG O2 Sat (Calc) VBG Base Excess VBG Potassium Hgb O2 Saturation Sodium Chloride Glucose Lactate Mechanical Rate FiO2 Tidal Volume PEEP Crit Value Called To Crit Value Called By Blood Gas Notified Time Potassium Carbon Dioxide Anion Gap BUN Creatinine Est GFR ( Amer) Est GFR (Non-Af Amer) POC Glucose (mg/dL) Random Glucose Hemoglobin A1c Fructosamine Uric Acid Calcium Phosphorus Magnesium Total Bilirubin Direct Bilirubin AST ALT Alkaline Phosphatase Total Creatine Kinase Troponin I NT-Pro-B Natriuret Pep Total Protein Albumin Globulin Albumin/Globulin Ratio Triglycerides Cholesterol LDL Cholesterol Direct HDL Cholesterol Free T4 Thyroxine (T4) TSH 3rd Generation Arterial Blood Potassium Venous Blood Potassium Urine Color Urine Appearance Urine pH Ur Specific [place] Urine Protein Urine Glucose (UA) Urine Ketones Urine Blood Urine Nitrate Urine Bilirubin Urine Urobilinogen Ur Leukocyte Esterase Urine RBC Urine WBC Ur Epithelial Cells Hyaline Casts Urine Opiates Screen Urine Methadone Screen Ur Barbiturates Screen Ur Phencyclidine Scrn Ur Amphetamines Screen U Benzodiazepines Scrn U Oth Cocaine Metabols U Cannabinoids Screen
--- NOTE | 2018-09-09 12:52 | CP.PCM.APN ---
Subjective - Date & Time of Evaluation Date of Evaluation: 09/09/18 Time of Evaluation: 12:15 - Subjective Subjective: pt seen and examined at bedside, pt remains intubated, in NAD, family at bedside. Review of Systems - Review of Systems Systems not reviewed;Unavailable: Intubated All systems: reviewed and no additional remarkable complaints except Objective - Vital Signs/Intake and Output Vital Signs (last 24 hours): Temp Pulse Resp BP Pulse Ox 97.8 F 67 18 113/58 L 95 09/09/18 07:00 09/09/18 08:40 09/08/18 22:20 09/09/18 09:04 09/09/18 08:40 Intake and Output: 09/09/18 09/09/18 06:59 18:59 Intake Total 2732 160 Output Total 1400 Balance 1332 160 - Medications Medications: Current Medications Acetaminophen (Tylenol 325mg Tab) 650 mg PO Q6 PRN PRN Reason: TEMP>=99.5F Acetaminophen (Tylenol 650 Mg Supp) 650 mg RC Q6H PRN PRN Reason: TEMP>=99.5F Allopurinol (Zyloprim) 100 mg PO DAILY SABIHA Dextrose (Dextrose 50% Inj) 0 ml IV STAT PRN; Protocol PRN Reason: Hypoglycemia Protocol Furosemide (Lasix) 40 mg IVP Q12 SABIHA Last Admin: 09/09/18 09:04 Dose: 40 mg Propofol (Diprivan) 1,000 mg in 100 mls @ 3.266 mls/hr IV .Q24H PRN; Protocol PRN Reason: TITRATE PER MD ORDER Last Titration: 09/09/18 08:00 Dose: 0 mcg/kg/min, 0 mls/hr Doxycycline Hyclate 100 mg/ (Sodium Chloride) 100 mls @ 100 mls/hr IVPB Q12 SABIHA; Protocol Last Admin: 09/09/18 09:34 Dose: 100 mls/hr Heparin Sodium/Sodium Chloride (Heparin 40935 Units/250ml 1/2 Normal Saline) 25,000 units in 250 mls @ 19.922 mls/hr IV .[id number] PRN; Protocol PRN Reason: ADJUST RATE PER PROTOCOL Last Titration: 09/09/18 07:13 Dose: 13 units/kg/hr, 14.388 mls/hr Vancomycin HCl (Vancomycin 1gm) 1 gm in 250 mls @ 167 mls/hr IVPB DAILY SABIHA; Protocol Last Admin: 09/09/18 09:02 Dose: 167 mls/hr Meropenem (Merrem Iv 1 Gm Premix) 1 gm in 50 mls @ 100 mls/hr IVPB Q12 SABIHA; Protocol Stop: 09/17/18 22:01 Last Admin: 09/09/18 09:03 Dose: 100 mls/hr Dextrose (Dextrose 5% In Water 1000 Ml) 1,000 mls @ 0 mls/hr IV .Q0M PRN; Protocol PRN Reason: Hypoglycemia Protocol Insulin Human Lispro (Humalog High) 0 units SC Q6H SABIHA; Protocol Last Admin: 09/09/18 11:47 Dose: Not Given Levalbuterol HCl (Xopenex) 0.63 mg IH [id number] SABIHA Last Admin: 09/09/18 07:25 Dose: 0.63 mg Methylprednisolone (Solu-Medrol) 20 mg IVP Q12H SABIHA Last Admin: 09/09/18 08:58 Dose: 20 mg Nicotine (Nicoderm Cq) 1 patch TD DAILY SABIHA Last Admin: 09/09/18 09:00 Dose: 1 patch Nystatin (Nystop Topical Powder) 0 gm TOP Q6 SABIHA Last Admin: 09/09/18 11:48 Dose: 2 pdr Nystatin (Mycostatin Cream) 0 ea TOP TID SABIHA Last Admin: 09/09/18 09:14 Dose: 2 unit Ondansetron HCl (Zofran Inj) 4 mg IVP Q4H PRN PRN Reason: Nausea/Vomiting Pantoprazole Sodium (Protonix Inj) 40 mg IVP Q12 SABIHA Last Admin: 09/09/18 09:00 Dose: 40 mg - Labs Labs: 09/09/18 05:35 09/09/18 06:47 PT 15.7 SECONDS (9.4-12.5) H 09/09/18 06:47 INR 1.39 09/09/18 06:47 APTT 81.3 Seconds (26.9-38.3) H 09/09/18 06:47 - Constitutional Appears: No Acute Distress - Head Exam Head Exam: ATRAUMATIC Additional comments: intubated - Eye Exam Eye Exam: PERRL - Respiratory Exam Respiratory Exam: Decreased Breath Sounds, Rales - Cardiovascular Exam Cardiovascular Exam: +S1, +S2 - GI/Abdominal Exam GI & Abdominal Exam: Soft, Normal Bowel Sounds - Extremities Exam Extremities Exam: Pedal Edema - Neurological Exam Neurological Exam: Alert, Awake - Skin Skin Exam: Dry, Intact Assessment and Plan - Assessment and Plan (Free Text) Plan: ITS Impressions Extremity Ultrasound 09/08/18 00:00 IMPRESSION: No sonographic evidence for deep venous thrombosis in the visualized segments of both lower extremities. Chest X-Ray 09/08/18 11:27 IMPRESSION: In situ ETT as described. Bibasilar atelectasis and/or infiltrates with suspected bilateral effusions. Cardiomegaly with right-sided aortic arch.. Chest X-Ray 09/08/18 13:20 IMPRESSION: Slightly limited study demonstrating interval placement right IJ central line as above. In situ ETT. Persistent bilateral lower lobe atelectasis and/or infiltrates and bilateral effusions left larger. Cardiomegaly. Right-sided aortic arch Chest CT 09/08/18 13:50 IMPRESSION: There is evidence of pulmonary emboli are seen within the distal right lower lobe branches and proximal right lower lobe segmental branches.. Small right-sided effusion and mild right basilar atelectasis. There are compressive type atelectatic changes seen in the left medial lung base crowding of the bronchovascular markings. Marked cardiomegaly. Recommend echocardiogram to exclude right heart strain. 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 Findings discussed with Dr. James at approximately 4:22 p.m. with written down and read back verification Abdomen Ultrasound 09/08/18 23:16 IMPRESSION: Mild hepatomegaly. Diffuse increased echogenicity in the liver may reflect hepatic steatosis however parenchymal infectious/ inflammatory etiologies cannot be entirely excluded. Clinical and laboratory correlation is advised. Cholelithiasis. No biliary dilatation. The right kidney is not visualized and may be obscured by bowel gas. Chest X-Ray 09/09/18 05:00 IMPRESSION: Stable position of endotracheal tube. No change in moderate right and small left effusions. Right lower lobe airspace disease may represent atelectasis or developing pneumonia. Follow-up is advised. 73 yr old patient with hx of smoking and ? etoh usage found at home by family after being down for unknown period of time admitted with resp distress hypoxic with o2 saturation in the 70 and 80 worsening tachypnea, intubated and being monitored in the ICU for hypoxic hypercapnic resp failure, RUBI, pul embolism in distal right lobe with cardiology, ID and renal consulation and management in progress. will continue to monitor clinical status. pt for echocardiogram will follow Marycarmen Hughes BPCI/TIC - BPCIA/TIC Educated pt/family on BPCIA/CIR/Med to Bed Programs: N/A Flyers given, including CMS Beneficiary letter: N/A Pt/family verbalized understanding & agreed to program: N/A
--- NOTE | 2018-09-09 13:32 | CARD ---
APPROVED REPORT Date of service: 09/09/2018 EXAM: Two-dimensional and M-mode echocardiogram with Doppler and color Doppler. INDICATION Congestive Heart Failure 2D DIMENSIONS Left Atrium (2D)4.0 (1.6-4.0cm)IVSd1.1 (0.7-1.1cm) LVDd4.4 (3.9-5.9cm)PWd1.2 (0.7-1.1cm) LVDs3.6 (2.5-4.0cm)FS (%) 18.8 % LVEF (%)39.0 (>50%) M-Mode DIMENSIONS Aortic Root3.00 (2.2-3.7cm)Aortic Cusp Exc.1.30 (1.5-2.0cm) Aortic Valve AoV Peak Ocnqqvuk825.0cm/Jeremy Peak GR.5mmHg Mitral Valve E/A ratio0.0 TDI E/Lateral E'0.0E/Medial E'0.0 Tricuspid Valve TR Peak [id number] Peak Gr.12mmHg [id number] LEFT VENTRICLE The left ventricle is normal size. There is normal left ventricular wall thickness. The systolic function is moderately to severely impaired. There is a flattened septum Transmitral Doppler flow pattern is Grade I-abnormal relaxation pattern. RIGHT VENTRICLE The right ventricle is mildly dilated and severly hypokinetic ATRIA The left atrium size is normal. The right atrium size is normal. AORTIC VALVE The aortic valve is not well visualized. No aortic regurgitation is present. There is no aortic valvular stenosis. MITRAL VALVE The mitral valve is not well visualized. There is no mitral valve regurgitation noted. There is no mitral valve stenosis. TRICUSPID VALVE The tricuspid valve is normal in structure. There is no tricuspid valve regurgitation noted. PULMONIC VALVE There is no pulmonic valvular regurgitation. GREAT VESSELS The aortic root is normal in size. <Conclusion> There is normal left ventricular wall thickness. The systolic function is moderately to severely impaired. There is a flattened septum Transmitral Doppler flow pattern is Grade I-abnormal relaxation pattern. The right ventricle is mildly dilated and severly hypokinetic
--- NOTE | 2018-09-09 16:46 | CP.PCM.CON ---
<Erika Dacosta - Last Filed: 09/09/18 16:43> History of Present Illness - History of Present Illness History of Present Illness: Podiatry Consult Note: Dr. Alegre 73 year old female patient seen and evaluated in the ICU with attending Dr. Alegre, for lower extremity evaluation. Patient is currently intubated and history cannot be obtained at this time. Past Patient History - Past Social History Smoking Status: Current Some Days Smoker - CARDIAC Hx Cardiac Disorders: Yes - PULMONARY Hx Respiratory Disorders: Yes Hx Emphysema: Yes - NEUROLOGICAL Hx Neurological Disorder: Yes Other/Comment: feet cold totouch - HEENT Hx HEENT Problems: No - RENAL Hx Chronic Kidney Disease: No - ENDOCRINE/METABOLIC Hx Endocrine Disorders: No - HEMATOLOGICAL/ONCOLOGICAL Hx Blood Disorders: No - INTEGUMENTARY Hx Dermatological Problems: Yes Other/Comment: red skin to chest abd ble and feet, fungal rash to under b/l breasts, pubic area, under abd folds, b/l groin, back, buttocks, sacrum, hips, hard dry heels to feet, dry skin feet - MUSCULOSKELETAL/RHEUMATOLOGICAL Hx Falls: No - GASTROINTESTINAL Hx Gastrointestinal Disorders: Yes (appetite changes, obese) - GENITOURINARY/GYNECOLOGICAL Hx Genitourinary Disorders: Yes Hx Incontinence: Yes - PSYCHIATRIC Hx Depression: No Hx Emotional Abuse: No Hx Physical Abuse: No Hx Substance Use: No - SURGICAL HISTORY Hx Surgeries: No Meds Allergies/Adverse Reactions: Allergies Allergy/AdvReac Type Severity Reaction Status Date / Time No Known Allergies Allergy Verified 09/08/18 11:11 - Medications Medications: Current Medications Acetaminophen (Tylenol 325mg Tab) 650 mg PO Q6 PRN PRN Reason: TEMP>=99.5F Acetaminophen (Tylenol 650 Mg Supp) 650 mg RC Q6H PRN PRN Reason: TEMP>=99.5F Allopurinol (Zyloprim) 100 mg PO DAILY [facility] Dextrose (Dextrose 50% Inj) 0 ml IV STAT PRN; Protocol PRN Reason: Hypoglycemia Protocol Furosemide (Lasix) 40 mg IVP Q12 SABIHA Last Admin: 09/09/18 09:04 Dose: 40 mg Propofol (Diprivan) 1,000 mg in 100 mls @ 3.266 mls/hr IV .Q24H PRN; Protocol PRN Reason: TITRATE PER MD ORDER Last Titration: 09/09/18 08:00 Dose: 0 mcg/kg/min, 0 mls/hr Doxycycline Hyclate 100 mg/ (Sodium Chloride) 100 mls @ 100 mls/hr IVPB Q12 SABIHA; Protocol Last Admin: 09/09/18 09:34 Dose: 100 mls/hr Heparin Sodium/Sodium Chloride (Heparin 70441 Units/250ml 1/2 Normal Saline) 25,000 units in 250 mls @ 19.922 mls/hr IV .[id number] PRN; Protocol PRN Reason: ADJUST RATE PER PROTOCOL Last Titration: 09/09/18 07:13 Dose: 13 units/kg/hr, 14.388 mls/hr Vancomycin HCl (Vancomycin 1gm) 1 gm in 250 mls @ 167 mls/hr IVPB DAILY S[facility]; Protocol Last Admin: 09/09/18 09:02 Dose: 167 mls/hr Meropenem (Merrem Iv 1 Gm Premix) 1 gm in 50 mls @ 100 mls/hr IVPB Q12 SABIHA; Protocol Stop: 09/17/18 22:01 Last Admin: 09/09/18 09:03 Dose: 100 mls/hr Dextrose (Dextrose 5% In Water 1000 Ml) 1,000 mls @ 0 mls/hr IV .Q0M PRN; Protocol PRN Reason: Hypoglycemia Protocol Dobutamine HCl/Dextrose (Dobutamine/Dextrose 5% 500mg/250ml) 500 mg in 250 mls @ 8.301 mls/hr IV .Q24H PRN; Protocol PRN Reason: TITRATE PER PROTOCOL Insulin Human Lispro (Humalog High) 0 units SC Q6H SABIHA; Protocol Last Admin: 09/09/18 11:47 Dose: Not Given Levalbuterol HCl (Xopenex) 0.63 mg IH [id number] SABIHA Last Admin: 09/09/18 13:26 Dose: 0.63 mg Methylprednisolone (Solu-Medrol) 20 mg IVP Q12H SABIHA Last Admin: 09/09/18 08:58 Dose: 20 mg Nicotine (Nicoderm Cq) 1 patch TD DAILY [facility] Last Admin: 09/09/18 09:00 Dose: 1 patch Nystatin (Nystop Topical Powder) 0 gm TOP Q6 SABIHA Last Admin: 09/09/18 11:48 Dose: 2 pdr Nystatin (Mycostatin Cream) 0 ea TOP TID SABIHA Last Admin: 09/09/18 13:26 Dose: 2 unit Ondansetron HCl (Zofran Inj) 4 mg IVP Q4H PRN PRN Reason: Nausea/Vomiting Pantoprazole Sodium (Protonix Inj) 40 mg IVP Q12 [facility] Last Admin: 09/09/18 09:00 Dose: 40 mg Physical Exam - Constitutional Appears: Non-toxic, No Acute Distress - Extremities Exam Additional comments: Vascular: DP/PT palpable, CFT < 3 seconds, TG warm to warm, +1 edema appreciated to b/l extremities Ortho: Unable to assess at this time Neuro: Unable to assess at this time Derm: Calluses appreciated to b/l heels, no open lesions, no erythema, no cellulitis no clinical signs of infection. Elongated, dystrophic nails to b/l digits Results - Vital Signs Recent Vital Signs: Last Vital Signs Temp 97.8 F 09/09/18 07:00 Pulse 67 09/09/18 08:40 Resp 18 09/08/18 22:20 BP 113/58 L 09/09/18 09:04 Pulse Ox 95 09/09/18 08:40 - Labs Result Diagrams: 09/09/18 05:35 09/09/18 06:47 Labs: Laboratory Results - last 24 hr 09/08/18 09/08/18 09/08/18 12:30 19:40 19:40 WBC RBC Hgb Hct MCV MCH MCHC RDW Plt Count MPV Neut % (Auto) Lymph % (Auto) [place] % (Auto) Eos % (Auto) Baso % (Auto) Lymph # (Auto) [place] # (Auto) Eos # (Auto) Baso # (Auto) Absolute Neuts (auto) PT INR APTT D-Dimer, Quantitative pCO2 pO2 HCO3 ABG pH ABG Total CO2 ABG O2 Saturation ABG O2 Content ABG Base Excess ABG Hemoglobin ABG Carboxyhemoglobin POC ABG HHb (Measured) ABG Methemoglobin ABG O2 Capacity Hgb O2 Saturation FiO2 Sodium Potassium Chloride Carbon Dioxide Anion Gap BUN Creatinine Est GFR ( Amer) Est GFR (Non-Af Amer) POC Glucose (mg/dL) Random Glucose Hemoglobin A1c 6.8 H Fructosamine 188 L Calcium Phosphorus Magnesium Total Bilirubin Direct Bilirubin AST ALT Alkaline Phosphatase Total Creatine Kinase Troponin I C-React Prot High Sens > 15.00 H NT-Pro-B Natriuret Pep Total Protein Albumin Globulin Albumin/Globulin Ratio Triglycerides Cholesterol LDL Cholesterol Direct HDL Cholesterol 25-OH Vitamin D Total Procalcitonin Free T4 0.83 Thyroxine (T4) 3.4 L TSH 3rd Generation 2.48 Urine Opiates Screen Urine Methadone Screen Ur Barbiturates Screen Ur Phencyclidine Scrn Ur Amphetamines Screen U Benzodiazepines Scrn U Oth Cocaine Metabols U Cannabinoids Screen Ur L.pneumophila Ag 09/08/18 09/08/18 09/08/18 19:40 19:40 20:10 WBC RBC Hgb Hct MCV MCH MCHC RDW Plt Count MPV Neut % (Auto) Lymph % (Auto) [place] % (Auto) Eos % (Auto) Baso % (Auto) Lymph # (Auto) [place] # (Auto) Eos # (Auto) Baso # (Auto) Absolute Neuts (auto) PT INR APTT D-Dimer, Quantitative 1600 H pCO2 38 pO2 98.0 HCO3 27.7 ABG pH 7.47 H ABG Total CO2 28.9 H ABG O2 Saturation 99.0 H ABG O2 Content 20.9 ABG Base Excess 3.9 H ABG Hemoglobin 15.5 ABG Carboxyhemoglobin 2.2 H POC ABG HHb (Measured) 1.0 ABG Methemoglobin 1.2 ABG O2 Capacity 21.1 Hgb O2 Saturation 95.6 FiO2 80.0 Sodium Potassium Chloride Carbon Dioxide Anion Gap BUN Creatinine Est GFR ( Amer) Est GFR (Non-Af Amer) POC Glucose (mg/dL) Random Glucose Hemoglobin A1c Fructosamine Calcium Phosphorus Magnesium Total Bilirubin Direct Bilirubin AST ALT Alkaline Phosphatase Total Creatine Kinase 123 Troponin I 0.13 H* C-React Prot High Sens NT-Pro-B Natriuret Pep Total Protein Albumin Globulin Albumin/Globulin Ratio Triglycerides Cholesterol LDL Cholesterol Direct HDL Cholesterol 25-OH Vitamin D Total Procalcitonin Free T4 Thyroxine (T4) TSH 3rd Generation Urine Opiates Screen Urine Methadone Screen Ur Barbiturates Screen Ur Phencyclidine Scrn Ur Amphetamines Screen U Benzodiazepines Scrn U Oth Cocaine Metabols U Cannabinoids Screen Ur L.pneumophila Ag 09/08/18 09/08/18 09/08/18 23:15 23:15 23:30 WBC RBC Hgb Hct MCV MCH MCHC RDW Plt Count MPV Neut % (Auto) Lymph % (Auto) [place] % (Auto) Eos % (Auto) Baso % (Auto) Lymph # (Auto) [place] # (Auto) Eos # (Auto) Baso # (Auto) Absolute Neuts (auto) PT INR APTT D-Dimer, Quantitative pCO2 pO2 HCO3 ABG pH ABG Total CO2 ABG O2 Saturation ABG O2 Content ABG Base Excess ABG Hemoglobin ABG Carboxyhemoglobin POC ABG HHb (Measured) ABG Methemoglobin ABG O2 Capacity Hgb O2 Saturation FiO2 Sodium Potassium Chloride Carbon Dioxide Anion Gap BUN Creatinine Est GFR ( Amer) Est GFR (Non-Af Amer) POC Glucose (mg/dL) Random Glucose Hemoglobin A1c Fructosamine Calcium Phosphorus Magnesium Total Bilirubin Direct Bilirubin AST ALT Alkaline Phosphatase Total Creatine Kinase Troponin I C-React Prot High Sens NT-Pro-B Natriuret Pep Total Protein Albumin Globulin Albumin/Globulin Ratio Triglycerides Cholesterol LDL Cholesterol Direct HDL Cholesterol 25-OH Vitamin D Total Procalcitonin < 0.05 L Free T4 Thyroxine (T4) TSH 3rd Generation Urine Opiates Screen Negative Urine Methadone Screen Negative Ur Barbiturates Screen Negative Ur Phencyclidine Scrn Negative Ur Amphetamines Screen Negative U Benzodiazepines Scrn Negative U Oth Cocaine Metabols Negative U Cannabinoids Screen Negative Ur L.pneumophila Ag Negative 09/08/18 09/08/18 09/08/18 23:30 23:30 23:52 WBC RBC Hgb Hct MCV MCH MCHC RDW Plt Count MPV Neut % (Auto) Lymph % (Auto) [place] % (Auto) Eos % (Auto) Baso % (Auto) Lymph # (Auto) [place] # (Auto) Eos # (Auto) Baso # (Auto) Absolute Neuts (auto) PT INR APTT D-Dimer, Quantitative pCO2 pO2 HCO3 ABG pH ABG Total CO2 ABG O2 Saturation ABG O2 Content ABG Base Excess ABG Hemoglobin ABG Carboxyhemoglobin POC ABG HHb (Measured) ABG Methemoglobin ABG O2 Capacity Hgb O2 Saturation FiO2 Sodium Potassium Chloride Carbon Dioxide Anion Gap BUN Creatinine Est GFR ( Amer) Est GFR (Non-Af Amer) POC Glucose (mg/dL) 154 H Random Glucose Hemoglobin A1c Fructosamine Calcium Phosphorus Magnesium Total Bilirubin Direct Bilirubin AST ALT Alkaline Phosphatase Total Creatine Kinase 79 Troponin I 0.08 D C-React Prot High Sens NT-Pro-B Natriuret Pep Total Protein Albumin Globulin Albumin/Globulin Ratio Triglycerides Cholesterol LDL Cholesterol Direct HDL Cholesterol 25-OH Vitamin D Total < 12.8 L Procalcitonin Free T4 Thyroxine (T4) TSH 3rd Generation Urine Opiates Screen Urine Methadone Screen Ur Barbiturates Screen Ur Phencyclidine Scrn Ur Amphetamines Screen U Benzodiazepines Scrn U Oth Cocaine Metabols U Cannabinoids Screen Ur L.pneumophila Ag 09/09/18 09/09/18 09/09/18 00:40 05:35 05:55 WBC 9.5 RBC 5.26 Hgb 15.6 Hct 50.2 H MCV 95.4 D MCH 29.7 MCHC 31.1 RDW 14.6 H Plt Count 191 MPV 10.0 Neut % (Auto) 89.8 H Lymph % (Auto) 6.3 L [place] % (Auto) 3.9 Eos % (Auto) 0.0 L Baso % (Auto) 0.0 Lymph # (Auto) 0.6 L [place] # (Auto) 0.4 Eos # (Auto) 0.0 Baso # (Auto) 0.00 Absolute Neuts (auto) 8.52 H PT INR APTT 184.9 H* D-Dimer, Quantitative pCO2 52 H pO2 63.0 L HCO3 30.8 H ABG pH 7.38 ABG Total CO2 32.4 H ABG O2 Saturation 94.2 L ABG O2 Content 19.7 ABG Base Excess 4.2 H ABG Hemoglobin 15.4 ABG Carboxyhemoglobin 2.3 H POC ABG HHb (Measured) 5.6 H ABG Methemoglobin 1.1 ABG O2 Capacity 20.9 Hgb O2 Saturation 91.0 L FiO2 80.0 Sodium Potassium Chloride Carbon Dioxide Anion Gap BUN Creatinine Est GFR ( Amer) Est GFR (Non-Af Amer) POC Glucose (mg/dL) Random Glucose Hemoglobin A1c Fructosamine Calcium Phosphorus Magnesium Total Bilirubin Direct Bilirubin AST ALT Alkaline Phosphatase Total Creatine Kinase Troponin I C-React Prot High Sens NT-Pro-B Natriuret Pep Total Protein Albumin Globulin Albumin/Globulin Ratio Triglycerides Cholesterol LDL Cholesterol Direct HDL Cholesterol 25-OH Vitamin D Total Procalcitonin Free T4 Thyroxine (T4) TSH 3rd Generation Urine Opiates Screen Urine Methadone Screen Ur Barbiturates Screen Ur Phencyclidine Scrn Ur Amphetamines Screen U Benzodiazepines Scrn U Oth Cocaine Metabols U Cannabinoids Screen Ur L.pneumophila Ag 09/09/18 09/09/1809/09/19 05:58 06:47 06:47 WBC RBC Hgb Hct MCV MCH MCHC RDW Plt Count MPV Neut % (Auto) Lymph % (Auto) [place] % (Auto) Eos % (Auto) Baso % (Auto) Lymph # (Auto) [place] # (Auto) Eos # (Auto) Baso # (Auto) Absolute Neuts (auto) PT 15.7 H INR 1.39 APTT 81.3 H D-Dimer, Quantitative pCO2 pO2 HCO3 ABG pH ABG Total CO2 ABG O2 Saturation ABG O2 Content ABG Base Excess ABG Hemoglobin ABG Carboxyhemoglobin POC ABG HHb (Measured) ABG Methemoglobin ABG O2 Capacity Hgb O2 Saturation FiO2 Sodium 138 Potassium 4.9 Chloride 100 Carbon Dioxide 34 H Anion Gap 8 L BUN 47 H Creatinine 1.0 Est GFR ( Amer) > 60 Est GFR (Non-Af Amer) 54 POC Glucose (mg/dL) 117 H Random Glucose 127 H Hemoglobin A1c Fructosamine Calcium 8.4 Phosphorus 4.6 H Magnesium 1.8 Total Bilirubin 0.5 Direct Bilirubin 0.5 H AST 28 ALT 22 Alkaline Phosphatase 75 Total Creatine Kinase Troponin I C-React Prot High Sens NT-Pro-B Natriuret Pep 21214 H Total Protein 5.6 L Albumin 2.7 L Globulin 2.9 Albumin/Globulin Ratio 1.0 L Triglycerides 121 Cholesterol 90 L LDL Cholesterol Direct 50 HDL Cholesterol 21 L 25-OH Vitamin D Total Procalcitonin Free T4 Thyroxine (T4) TSH 3rd Generation Urine Opiates Screen Urine Methadone Screen Ur Barbiturates Screen Ur Phencyclidine Scrn Ur Amphetamines Screen U Benzodiazepines Scrn U Oth Cocaine Metabols U Cannabinoids Screen Ur L.pneumophila Ag 09/09/18 09/09/18 11:21 13:10 WBC RBC Hgb Hct MCV MCH MCHC RDW Plt Count MPV Neut % (Auto) Lymph % (Auto) [place] % (Auto) Eos % (Auto) Baso % (Auto) Lymph # (Auto) [place] # (Auto) Eos # (Auto) Baso # (Auto) Absolute Neuts (auto) PT INR APTT 73.2 H D-Dimer, Quantitative pCO2 pO2 HCO3 ABG pH ABG Total CO2 ABG O2 Saturation ABG O2 Content ABG Base Excess ABG Hemoglobin ABG Carboxyhemoglobin POC ABG HHb (Measured) ABG Methemoglobin ABG O2 Capacity Hgb O2 Saturation FiO2 Sodium Potassium Chloride Carbon Dioxide Anion Gap BUN Creatinine Est GFR ( Amer) Est GFR (Non-Af Amer) POC Glucose (mg/dL) 118 H Random Glucose Hemoglobin A1c Fructosamine Calcium Phosphorus Magnesium Total Bilirubin Direct Bilirubin AST ALT Alkaline Phosphatase Total Creatine Kinase Troponin I C-React Prot High Sens NT-Pro-B Natriuret Pep Total Protein Albumin Globulin Albumin/Globulin Ratio Triglycerides Cholesterol LDL Cholesterol Direct HDL Cholesterol 25-OH Vitamin D Total Procalcitonin Free T4 Thyroxine (T4) TSH 3rd Generation Urine Opiates Screen Urine Methadone Screen Ur Barbiturates Screen Ur Phencyclidine Scrn Ur Amphetamines Screen U Benzodiazepines Scrn U Oth Cocaine Metabols U Cannabinoids Screen Ur L.pneumophila Ag Assessment & Plan - Assessment and Plan (Free Text) Assessment: 73 year old female patient seen and evaluated in the ICU with attending Dr. Alegre, for lower extremity evaluation. Plan: Patient seen and evaluated with Dr. Alegre WBC 9.5 Will continue to monitor skin integrity and for DTI Ammonium lactate and Vit A&D ointment ordered to be applied to heels daily Multipodus boots ordered Will continue to follow while in house Thank you for the consult - Date & Time Date: 09/09/18 Time: 16:43 <Sindy Alegre - Last Filed: 09/14/18 19:37> Meds - Medications Medications: Current Medications Acetaminophen (Tylenol 325mg Tab) 650 mg PO Q6 PRN PRN Reason: TEMP>=99.5F Last Admin: 09/14/18 17:04 Dose: 650 mg Acetaminophen (Tylenol 650 Mg Supp) 650 mg RC Q6H PRN PRN Reason: TEMP>=99.5F Acetazolamide (Diamox 250 Mg Tab) 250 mg PO BID [facility] Stop: 09/16/18 10:31 Last Admin: 09/14/18 17:10 Dose: 250 mg Albuterol/Ipratropium (Duoneb 3 Mg/0.5 Mg (3 Ml) Ud) 3 ml IH [id number] [facility] Last Admin: 09/14/18 13:11 Dose: 3 ml Allopurinol (Zyloprim) 100 mg PO DAILY [facility] Last Admin: 09/14/18 11:15 Dose: 100 mg Dextrose (Dextrose 50% Inj) 0 ml IV STAT PRN; Protocol PRN Reason: Hypoglycemia Protocol Ergocalciferol (Drisdol 50,000 Intl Units Cap) 1 cap PO Q7D [facility] Last Admin: 09/10/18 18:32 Dose: 1 cap Furosemide (Lasix) 40 mg IVP DAILY [facility] Last Admin: 09/14/18 10:00 Dose: 40 mg Dextrose (Dextrose 5% In Water 1000 Ml) 1,000 mls @ 0 mls/hr IV .Q0M PRN; Protocol PRN Reason: Hypoglycemia Protocol Heparin Sodium/Sodium Chloride (Heparin 37499 Units/250ml 1/2 Normal Saline) 25 ,000 units in 250 mls @ 19.701 mls/hr IV .[id number] PRN; Protocol PRN Reason: ADJUST RATE PER PROTOCOL Last Admin: 09/14/18 11:01 Dose: 11 units/kg/hr, 12.04 mls/hr Insulin Human Lispro (Humalog High) 0 units SC ACHS [facility]; Protocol Last Admin: 09/14/18 17:09 Dose: Not Given Lactic Acid (Lac-Hydrin 12% Cream (140 G)) 0 ea TOP DAILY [facility] Last Admin: 09/14/18 11:46 Dose: 1 applic Losartan Potassium (Cozaar) 25 mg PO DAILY [facility] Last Admin: 09/14/18 11:28 Dose: 25 mg Methylprednisolone (Solu-Medrol) 20 mg IVP Q12H [facility] Last Admin: 09/14/18 09:00 Dose: 20 mg Nicotine (Nicoderm Cq) 1 patch TD DAILY [facility] Last Admin: 09/14/18 10:00 Dose: 1 patch Nystatin (Nystop Topical Powder) 0 gm TOP Q6 S[facility]IHA Last Admin: 09/14/18 17:06 Dose: 1 pdr Nystatin (Mycostatin Cream) 0 ea TOP TID [facility] Last Admin: 09/14/18 17:11 Dose: 1 unit Ondansetron HCl (Zofran Inj) 4 mg IVP Q4H PRN PRN Reason: Nausea/Vomiting Pantoprazole Sodium (Protonix Ec Tab) 40 mg PO 0600,1600 [facility] Last Admin: 09/14/18 17:04 Dose: 40 mg Patiromer (Veltassa) 8.4 gm PO DAILY [facility] Stop: 09/16/18 10:01 Last Admin: 09/14/18 11:03 Dose: 8.4 gm Polyethylene Glycol (Miralax) 17 gm PO BID [facility] Last Admin: 09/14/18 17:09 Dose: 17 gm Results - Vital Signs Recent Vital Signs: Last Vital Signs Temp 98.2 F 09/14/18 17:04 Pulse 92 H 09/14/18 18:00 Resp 19 09/14/18 17:00 BP 97/53 L 09/14/18 17:00 Pulse Ox 92 L 09/14/18 17:00 - Labs Result Diagrams: 09/14/18 17:30 09/14/18 03:00 Labs: Laboratory Results - last 24 hr 09/13/18 09/13/18 09/14/18 20:50 23:41 03:00 WBC RBC Hgb Hct MCV MCH MCHC RDW Plt Count MPV Neut % (Auto) Lymph % (Auto) [place] % (Auto) Eos % (Auto) Baso % (Auto) Lymph # (Auto) [place] # (Auto) Eos # (Auto) Baso # (Auto) Absolute Neuts (auto) PT 12.6 H INR 1.14 APTT 56.0 H 73.7 H Sodium Potassium Chloride Carbon Dioxide Anion Gap BUN Creatinine Est GFR ( Amer) Est GFR (Non-Af Amer) POC Glucose (mg/dL) 94 Random Glucose Calcium Phosphorus Magnesium Total Bilirubin Direct Bilirubin AST ALT Alkaline Phosphatase Total Protein Albumin Globulin Albumin/Globulin Ratio 09/14/18 09/14/18 09/14/18 03:00 03:00 07:35 WBC 9.6 RBC 3.53 Hgb 10.4 L Hct 35.4 L MCV 100.3 MCH 29.5 MCHC 29.4 L RDW 14.3 Plt Count 193 MPV 9.7 Neut % (Auto) 90.0 H Lymph % (Auto) 2.8 L [place] % (Auto) 6.9 H Eos % (Auto) 0.3 L Baso % (Auto) 0.0 Lymph # (Auto) 0.3 L [place] # (Auto) 0.7 H Eos # (Auto) 0.0 Baso # (Auto) 0.00 Absolute Neuts (auto) 8.59 H PT INR APTT Sodium 136 Potassium 4.6 Chloride 94 L Carbon Dioxide 40 H Anion Gap 7 L BUN 35 H Creatinine 0.9 Est GFR ( Amer) > 60 Est GFR (Non-Af Amer) > 60 POC Glucose (mg/dL) 87 Random Glucose 122 H Calcium 7.9 L Phosphorus 4.8 H Magnesium 1.7 Total Bilirubin 0.7 Direct Bilirubin 0.5 H AST 23 ALT 19 Alkaline Phosphatase 49 Total Protein 5.4 L Albumin 2.5 L Globulin 2.8 Albumin/Globulin Ratio 0.9 L 09/14/18 09/14/18 09/14/18 11:50 16:55 17:30 WBC RBC Hgb 9.7 L Hct 32.9 L MCV MCH MCHC RDW Plt Count MPV Neut % (Auto) Lymph % (Auto) [place] % (Auto) Eos % (Auto) Baso % (Auto) Lymph # (Auto) [place] # (Auto) Eos # (Auto) Baso # (Auto) Absolute Neuts (auto) PT INR APTT Sodium Potassium Chloride Carbon Dioxide Anion Gap BUN Creatinine Est GFR ( Amer) Est GFR (Non-Af Amer) POC Glucose (mg/dL) 108 148 H Random Glucose Calcium Phosphorus Magnesium Total Bilirubin Direct Bilirubin AST ALT Alkaline Phosphatase Total Protein Albumin Globulin Albumin/Globulin Ratio 09/14/18 17:30 WBC RBC Hgb Hct MCV MCH MCHC RDW Plt Count MPV Neut % (Auto) Lymph % (Auto) [place] % (Auto) Eos % (Auto) Baso % (Auto) Lymph # (Auto) [place] # (Auto) Eos # (Auto) Baso # (Auto) Absolute Neuts (auto) PT 11.8 INR 1.06 APTT 50.9 H Sodium Potassium Chloride Carbon Dioxide Anion Gap BUN Creatinine Est GFR ( Amer) Est GFR (Non-Af Amer) POC Glucose (mg/dL) Random Glucose Calcium Phosphorus Magnesium Total Bilirubin Direct Bilirubin AST ALT Alkaline Phosphatase Total Protein Albumin Globulin Albumin/Globulin Ratio Attending/Attestation - Attestation I have personally seen and examined this patient.: Yes I have fully participated in the care of the patient.: Yes I have reviewed all pertinent clinical information: Yes
--- NOTE | 2018-09-09 17:22 | CARD ---
APPROVED REPORT Date of service: 09/09/2018 EKG Measurement Heart [id number] <Conclusion> Normal sinus rhythm Left axis deviation RSR' or QR pattern in V1 suggests right ventricular conduction delay T wave abnormality, consider anterior ischemia Abnormal ECG
[2018-09-09] MEDS: DOBUTamine 500mg/250ml D5W 500 MG/250 ML BAG IV PRN (17:42)
--- NOTE | 2018-09-09 19:39 | CP.PCM.PN ---
<Koffi Daniel - Last Filed: 09/09/18 19:39> Subjective - Date & Time of Evaluation Date of Evaluation: 09/09/18 Time of Evaluation: 07:00 - Subjective Subjective: Medicine progress note (Dr. Law) - Fredy, PGY - 2 Patient seen and examined at bedside. PTT elevated overnight, heparin drip subsequently stopped for an hour. Patient continues to be intubated and sedated, history unobtainable. Objective - Vital Signs/Intake and Output Vital Signs (last 24 hours): Temp Pulse Resp BP Pulse Ox 97.8 F 82 18 116/68 92 L 09/09/18 07:00 09/09/18 17:45 09/08/18 22:20 09/09/18 17:45 09/09/18 17:45 Intake and Output: 09/09/18 09/10/18 18:59 06:59 Intake Total 728 Output Total 800 Balance -72 - Medications Medications: Current Medications Acetaminophen (Tylenol 325mg Tab) 650 mg PO Q6 PRN PRN Reason: TEMP>=99.5F Acetaminophen (Tylenol 650 Mg Supp) 650 mg RC Q6H PRN PRN Reason: TEMP>=99.5F Allopurinol (Zyloprim) 100 mg PO DAILY [facility] Last Admin: 09/09/18 17:39 Dose: Not Given Dextrose (Dextrose 50% Inj) 0 ml IV STAT PRN; Protocol PRN Reason: Hypoglycemia Protocol Furosemide (Lasix) 40 mg IVP Q12 [facility] Last Admin: 09/09/18 09:04 Dose: 40 mg Propofol (Diprivan) 1,000 mg in 100 mls @ 3.266 mls/hr IV .Q24H PRN; Protocol PRN Reason: TITRATE PER MD ORDER Last Titration: 09/09/18 08:00 Dose: 0 mcg/kg/min, 0 mls/hr Doxycycline Hyclate 100 mg/ (Sodium Chloride) 100 mls @ 100 mls/hr IVPB Q12 [facility]; Protocol Last Admin: 09/09/18 09:34 Dose: 100 mls/hr Heparin Sodium/Sodium Chloride (Heparin 57663 Units/250ml 1/2 Normal Saline) 25,000 units in 250 mls @ 19.922 mls/hr IV .[id number] PRN; Protocol PRN Reason: ADJUST RATE PER PROTOCOL Last Titration: 09/09/18 07:13 Dose: 13 units/kg/hr, 14.388 mls/hr Vancomycin HCl (Vancomycin 1gm) 1 gm in 250 mls @ 167 mls/hr IVPB DAILY [facility]; Protocol Last Admin: 09/09/18 09:02 Dose: 167 mls/hr Meropenem (Merrem Iv 1 Gm Premix) 1 gm in 50 mls @ 100 mls/hr IVPB Q12 [facility]; Protocol Stop: 09/17/18 22:01 Last Admin: 09/09/18 09:03 Dose: 100 mls/hr Dextrose (Dextrose 5% In Water 1000 Ml) 1,000 mls @ 0 mls/hr IV .Q0M PRN; Protocol PRN Reason: Hypoglycemia Protocol Dobutamine HCl/Dextrose (Dobutamine/Dextrose 5% 500mg/250ml) 500 mg in 250 mls @ 8.301 mls/hr IV .Q24H PRN; Protocol PRN Reason: TITRATE PER PROTOCOL Last Admin: 09/09/18 17:42 Dose: 2.5 mcg/kg/min, 8.301 mls/hr Insulin Human Lispro (Humalog High) 0 units SC Q6H [facility]; Protocol Last Admin: 09/09/18 17:37 Dose: Not Given Lactic Acid (Lac-Hydrin 12% Cream (140 G)) 0 ea TOP DAILY [facility] Levalbuterol HCl (Xopenex) 0.63 mg IH [id number] [facility] Last Admin: 09/09/18 13:26 Dose: 0.63 mg Methylprednisolone (Solu-Medrol) 20 mg IVP Q12H [facility] Last Admin: 09/09/18 08:58 Dose: 20 mg Nicotine (Nicoderm Cq) 1 patch TD DAILY [facility] Last Admin: 09/09/18 09:00 Dose: 1 patch Nystatin (Nystop Topical Powder) 0 gm TOP Q6 [facility] Last Admin: 09/09/18 17:38 Dose: 2 pdr Nystatin (Mycostatin Cream) 0 ea TOP TID [facility] Last Admin: 09/09/18 17:38 Dose: 2 unit Ondansetron HCl (Zofran Inj) 4 mg IVP Q4H PRN PRN Reason: Nausea/Vomiting Pantoprazole Sodium (Protonix Inj) 40 mg IVP Q12 [facility] Last Admin: 09/09/18 09:00 Dose: 40 mg - Labs Labs: 09/09/18 05:35 09/09/18 06:47 PT 15.7 SECONDS (9.4-12.5) H 09/09/18 06:47 INR 1.39 09/09/18 06:47 APTT 73.2 Seconds (26.9-38.3) H 09/09/18 13:10 - Constitutional Appears: Well - Head Exam Head Exam: ATRAUMATIC, NORMAL INSPECTION, NORMOCEPHALIC - Eye Exam Eye Exam: EOMI, Normal appearance, PERRL Pupil Exam: NORMAL ACCOMODATION, PERRL - ENT Exam ENT Exam: Mucous Membranes Moist, Normal Exam - Neck Exam Neck Exam: Full ROM, Normal Inspection. absent: Lymphadenopathy - Respiratory Exam Respiratory Exam: Clear to Ausculation Bilateral, NORMAL BREATHING PATTERN - Cardiovascular Exam Cardiovascular Exam: REGULAR RHYTHM, +S1, +S2. absent: Murmur - GI/Abdominal Exam GI & Abdominal Exam: Soft, Normal Bowel Sounds. absent: Tenderness - Extremities Exam Extremities Exam: Full ROM, Normal Capillary Refill, Normal Inspection. absent: Joint Swelling, Pedal Edema - Back Exam Back Exam: NORMAL INSPECTION - Neurological Exam Neurological Exam: Alert, Awake, CN II-XII Intact, Normal Gait, Oriented x3 - Psychiatric Exam Psychiatric exam: Normal Affect, Normal Mood - Skin Skin Exam: Dry, Intact, Normal Color, Warm Assessment and Plan - Assessment and Plan (Free Text) Assessment: 73 F with acute AMS, PNA, and acute hypoxic hypercapneic respiratory failure Plan Acute Pulmonary Embolism - Continue with heparin drip Acute Hypoxic Hypercapneic Respiratory Failure - Continue with ventilator support using low TV ventilation - Duonebs PRN - CXR daily, ABG daily - Solumederol Acute CHF Exacerbtion - Lasix 40 q12 Acute PNA - Continue Merrem, Doxy, Vanc - F/u pancultures Acute Uremia - Monitor <Manuel Law U - Last Filed: 09/15/18 19:21> Objective - Vital Signs/Intake and Output Vital Signs (last 24 hours): Temp Pulse Resp BP Pulse Ox 98.7 F 77 22 113/81 94 L 09/15/18 16:00 09/15/18 16:00 09/15/18 15:56 09/15/18 15:56 09/15/18 14:56 Intake and Output: 09/15/18 09/16/18 18:59 06:59 Intake Total 1145 Output Total 1276 Balance -131 - Medications Medications: Current Medications Acetaminophen (Tylenol 325mg Tab) 650 mg PO Q6 PRN PRN Reason: TEMP>=99.5F Last Admin: 09/14/18 17:04 Dose: 650 mg Acetaminophen (Tylenol 650 Mg Supp) 650 mg RC Q6H PRN PRN Reason: TEMP>=99.5F Albuterol/Ipratropium (Duoneb 3 Mg/0.5 Mg (3 Ml) Ud) 3 ml IH [id number] [facility] Last Admin: 09/15/18 14:29 Dose: 3 ml Allopurinol (Zyloprim) 100 mg PO DAILY [facility] Last Admin: 09/15/18 09:58 Dose: 100 mg Arformoterol Tartrate (Brovana) 15 mcg IH [id number] [facility] Budesonide (Pulmicort Respules) 0.5 mg IH [id number] [facility] Dextrose (Dextrose 50% Inj) 0 ml IV STAT PRN; Protocol PRN Reason: Hypoglycemia Protocol Ergocalciferol (Drisdol 50,000 Intl Units Cap) 1 cap PO Q7D [facility] Last Admin: 09/10/18 18:32 Dose: 1 cap Dextrose (Dextrose 5% In Water 1000 Ml) 1,000 mls @ 0 mls/hr IV .Q0M PRN; Protocol PRN Reason: Hypoglycemia Protocol Insulin Human Lispro (Humalog High) 0 units SC ACHS [facility]; Protocol Last Admin: 09/15/18 16:48 Dose: Not Given Lactic Acid (Lac-Hydrin 12% Cream (140 G)) 0 ea TOP DAILY [facility] Last Admin: 09/15/18 10:05 Dose: 1 applic Nicotine (Nicoderm Cq) 1 patch TD DAILY [facility] Last Admin: 09/15/18 09:59 Dose: 1 patch Nystatin (Nystop Topical Powder) 0 gm TOP Q6 [facility] Last Admin: 09/15/18 18:23 Dose: 1 pdr Nystatin (Mycostatin Cream) 0 ea TOP TID [facility] Last Admin: 09/15/18 18:24 Dose: 1 unit Ondansetron HCl (Zofran Inj) 4 mg IVP Q4H PRN PRN Reason: Nausea/Vomiting Pantoprazole Sodium (Protonix Ec Tab) 40 mg PO 0600,1600 [facility] Last Admin: 09/15/18 16:48 Dose: 40 mg Polyethylene Glycol (Miralax) 17 gm PO BID [facility] Last Admin: 09/15/18 18:23 Dose: 17 gm Prednisone (Prednisone Tab) 40 mg PO DAILY [facility] Stop: 09/20/18 10:01 - Labs Labs: 09/15/18 17:01 09/15/18 05:02 PT 11.4 SECONDS (9.4-12.5) 09/15/18 05:02 INR 1.01 09/15/18 05:02 APTT 24.0 Seconds (26.9-38.3) L 09/15/18 05:02 Attending/Attestation - Attestation I have personally seen and examined this patient.: Yes I have fully participated in the care of the patient.: Yes I have reviewed all pertinent clinical information, including history, physical exam and plan: Yes Notes (Text): Please see/read my dictated notes.
[2018-09-10] MEDS: Levalbuterol 0.63 MG/3 ML Inhal Soln UD IH SCH ×4 (01:10→20:30)
[2018-09-10] MEDS: Nystatin 100,000 Units/gm Topical Pow(15 gm) TOP SCH ×3 (05:08→18:35)
[2018-09-10] MEDS: Insulin Lispro (HUMAlog) HIGH Coverage SC SCH ×3 (05:34→18:00)
[2018-09-10 06:23] LABS: ARTERIAL BLOOD GAS HCO3 31.9 mmol/L (21-28); ARTERIAL BLOOD GAS HEMOGLOBIN 14.2 g/dL (11.7-17.4); ARTERIAL BLOOD GAS O2 CAPACITY 19.5 mL/dl (16-24); ARTERIAL BLOOD GAS O2 CONTENT 19.2 ML/dl (15-23); ARTERIAL BLOOD GAS O2 SAT 98.5 % (95-98); ARTERIAL BLOOD GAS PCO2 48 mm/Hg (35-45); ARTERIAL BLOOD GAS PH 7.43 (7.35-7.45); ARTERIAL BLOOD GAS TCO2 33.4 mmol.L (22-28)
[2018-09-10] MEDS: Heparin25000 units/250ml 1/2NS 25,000 UNITS/250 ML BAG IV PRN (06:33)
[2018-09-10 06:43] LABS: BASO # 0.01 K/mm3 (0.0-2.0); BASO % 0.1 % (0.0-3.0); HEMOGLOBIN 14.4 g/dL (12.0-16.0); LYMPH # 0.8 (1.2-3.4); LYMPH % 7.2 % (22.0-35.0); MEAN CELL VOLUME 95.1 fl (80.0-105.0); MEAN CORPUSCULAR HEMOGLOBIN 29.5 pg (25.0-35.0); MEAN PLATELET VOLUME 10.2 fl (7.0-11.0); MONO # 0.4 (0.1-0.6); MONO % 3.7 % (1.0-6.0); RBC 4.88 10^6/uL (3.5-6.1); RED CELL DISTRIBUTION WIDTH 14.8 % (11.5-14.5); WHITE BLOOD COUNT 10.4 10^3/uL (4.5-11.0)
--- NOTE | 2018-09-10 06:51 | CP.CCUPN ---
<Christopher Crockett - Last Filed: 09/10/18 17:22> CCU Subjective - Physician Review Subjective (Free Text): Christopher Crockett DO. Critical Care Progress note Patient seen and examined at bedside. She is intubated but awake and follow commands with no acute distress. No acute events overnight. CCU Objective - Vital Signs / Intake & Output Vital Signs (Last 4 hours): Vital Signs Pulse 09/10/18 04:00 71 Intake and Output (Last 8hrs): Intake & Output 09/09/18 09/09/18 09/10/18 14:59 22:59 06:59 Intake Total 160 593 466 Output Total 800 1375 Balance 160 -207 -909 Intake: IV 160 593 466 Left Hand 568 250 Right Internal Jugular 216 Output: Urine 800 1375 Urethral (Alonzo) 800 1375 Other: # Bowel Movements 0 - Physical Exam Head: Positive for: Atraumatic, Normocephalic Conjunctiva: Positive for: Normal, Other Mouth: Positive for: Dry Nose (Internal): Positive for: Normal Inspection Neck: Positive for: Trachea Midline. Negative for: JVD, Bruit Respiratory/Chest: Positive for: Wheezes (improving), Decreased Breath Sounds Cardiovascular: Positive for: Regular Rate and Rhythm, Normal S1, S2. Negative for: Rub, Gallop Abdomen: Positive for: Normal Bowel Sounds. Negative for: Tenderness, Distention Breast/Axillary: Positive for: Erythema (Erythematous bilateral candidal rash to breast) Lower Extremity: Positive for: Edema (3+ pedal edema bilateral) Neurological: Positive for: GCS=15, Speech Normal Skin: Positive for: Rashes, Erythematous (bilateral candidal rash to groin, hips, abdomen) Psychiatric: Positive for: Oriented x 3, Normal Insight, Normal Concentration - Medications Active Medications: Active Medications Generic Name Dose Route Start Last Admin Trade Name Freq PRN Reason Stop Dose Admin Acetaminophen 650 mg 09/08/18 14:22 Tylenol 325mg Tab PO Q6 PRN TEMP>=99.5F Acetaminophen 650 mg 09/08/18 14:22 Tylenol 650 Mg Supp RC Q6H PRN TEMP>=99.5F Allopurinol 100 mg 09/09/18 10:00 09/09/18 17:39 Zyloprim PO Not Given DAILY SABIHA Dextrose 0 ml 09/08/18 22:59 Dextrose 50% Inj IV STAT PRN Hypoglycemia Protocol Protocol Furosemide 40 mg 09/08/18 23:00 09/09/18 21:00 Lasix IVP 40 mg Q12 SABIHA Administration Propofol 1,000 mg in 100 mls @ 3.266 mls/hr 09/08/18 11:33 09/09/18 08:00 Diprivan IV 0 mcg/kg/min .Q24H PRN 0 mls/hr TITRATE PER MD ORDER Titration Protocol 5 MCG/KG/MIN Doxycycline Hyclate 100 mg/ 100 mls @ 100 mls/hr 09/08/18 22:00 09/09/18 21:38 Sodium Chloride IVPB 100 mls/hr Q12 SABIHA Administration Protocol Heparin Sodium/Sodium Chloride 25,000 units in 250 mls @ 19.922 mls/hr 09/08/18 16:40 09/10/18 06:33 Heparin 21639 Units/250ml 1/2 Normal Saline IV 10 units/kg/hr .[id number] PRN 11.068 mls/hr ADJUST RATE PER PROTOCOL Administration Protocol 18 UNITS/KG/HR Vancomycin HCl 1 gm in 250 mls @ 167 mls/hr 09/09/18 10:00 09/09/18 09:02 Vancomycin 1gm IVPB 167 mls/hr DAILY SABIHA Administration Protocol Meropenem 1 gm in 50 mls @ 100 mls/hr 09/08/18 22:00 09/09/18 21:01 Merrem Iv 1 Gm Premix IVPB 09/17/18 22:01 100 mls/hr Q12 SABIHA Administration Protocol Dextrose 1,000 mls @ 0 mls/hr 09/08/18 22:59 Dextrose 5% In Water 1000 Ml IV .Q0M PRN Hypoglycemia Protocol Protocol Per Protocol Dobutamine HCl/Dextrose 500 mg in 250 mls @ 8.301 mls/hr 09/09/18 16:30 09/09/18 17:42 Dobutamine/Dextrose 5% 500mg/250ml IV 2.5 mcg/kg/min .Q24H PRN 8.301 mls/hr TITRATE PER PROTOCOL Administration Protocol 2.5 MCG/KG/MIN Insulin Human Lispro 0 units 09/08/18 23:01 09/10/18 05:34 Humalog High SC Not Given Q6H SABIHA Protocol Lactic Acid 0 ea 09/10/18 10:00 Lac-Hydrin 12% Cream (140 G) TOP DAILY SABIHA Levalbuterol HCl 0.63 mg 09/08/18 20:00 09/10/18 01:10 Xopenex IH 0.63 mg [id number] SABIHA Administration Methylprednisolone 20 mg 09/09/18 08:15 09/09/18 21:00 Solu-Medrol IVP 20 mg Q12H SABIHA Administration Nicotine 1 patch 09/09/18 10:00 09/09/18 09:00 Nicoderm Cq TD 1 patch DAILY SABIHA Administration Nystatin 0 gm 09/08/18 18:00 09/10/18 05:08 Nystop Topical Powder TOP 2 pdr Q6 SABIHA Administration Nystatin 0 ea 09/08/18 23:00 09/09/18 17:38 Mycostatin Cream TOP 2 unit TID SABIHA Administration Ondansetron HCl 4 mg 09/08/18 14:22 Zofran Inj IVP Q4H PRN Nausea/Vomiting Pantoprazole Sodium 40 mg 09/08/18 22:00 09/09/18 21:05 Protonix Inj IVP 40 mg Q12 SABIHA Administration - Patient Studies Lab Studies: Microbiology Studies 09/08/18 16:30 MRSA Culture (Admit) - Final Naris MRSA NOT DETECTED 09/08/18 12:30 Blood Culture - Preliminary Blood NO GROWTH AFTER 24 HOURS 09/08/18 12:00 Blood Culture - Preliminary Blood NO GROWTH AFTER 24 HOURS 09/08/18 13:25 Urine Culture - Final Urine Random No Growth (<1,000 CFU/ML) Lab Studies 09/10/18 09/10/18 09/10/18 Range/Units 06:10 05:40 05:26 WBC 10.4 (4.5-11.0) 10^3/uL RBC 4.88 (3.5-6.1) 10^6/uL Hgb 14.4 (12.0-16.0) g/dL Hct 46.4 (36.0-48.0) % MCV 95.1 (80.0-105.0) fl MCH 29.5 (25.0-35.0) pg MCHC 31.0 (31.0-37.0) g/dl RDW 14.8 H (11.5-14.5) % Plt Count 215 (120.0-450.0) 10^3/uL MPV 10.2 (7.0-11.0) fl Neut % (Auto) 89.0 H (50.0-68.0) % Lymph % (Auto) 7.2 L (22.0-35.0) % [place] % (Auto) 3.7 (1.0-6.0) % Eos % (Auto) 0.0 L (1.5-5.0) % Baso % (Auto) 0.1 (0.0-3.0) % Lymph # (Auto) 0.8 L (1.2-3.4) [place] # (Auto) 0.4 (0.1-0.6) Eos # (Auto) 0.0 (0.0-0.7) Baso # (Auto) 0.01 (0.0-2.0) K/mm3 Absolute Neuts (auto) 9.24 H (1.4-6.5) PT (9.4-12.5) SECONDS INR APTT (26.9-38.3) Seconds pCO2 48 H (35-45) mm/Hg pO2 93.0 (80-100) mm/Hg HCO3 31.9 H (21-28) mmol/L ABG pH 7.43 (7.35-7.45) ABG Total CO2 33.4 H (22-28) mmol.L ABG O2 Saturation 98.5 H (95-98) % ABG O2 Content 19.2 (15-23) ML/dl ABG Base Excess 6.4 H (-2.0-3.0) mmol/L ABG Hemoglobin 14.2 (11.7-17.4) g/dL ABG Carboxyhemoglobin 1.8 H (0.5-1.5) % POC ABG HHb (Measured) 1.5 (0-5) % ABG Methemoglobin 1.0 (0.0-3.0) % ABG O2 Capacity 19.5 (16-24) mL/dl Hgb O2 Saturation 95.6 (95.0-98.0) % FiO2 60.0 % Sodium (132-148) mmol/L Potassium (3.6-5.0) mmol/L Chloride (98-107) mmol/L Carbon Dioxide (21-33) mmol/L Anion Gap (10-20) BUN (7-21) mg/dL Creatinine (0.7-1.2) mg/dl Est GFR ( Amer) Est GFR (Non-Af Amer) POC Glucose (mg/dL) 113 H (65-110) mg/dL Random Glucose (70-110) mg/dL Fructosamine (190-270) umol/L Calcium (8.4-10.5) mg/dL Phosphorus (2.5-4.5) mg/dL Magnesium (1.7-2.2) mg/dL Total Bilirubin (0.2-1.3) mg/dL Direct Bilirubin (0.0-0.4) mg/dL AST (14-36) U/L ALT (7-56) U/L Alkaline Phosphatase (38-126) U/L C-React Prot High Sens (1.00-3.00) mg/L NT-Pro-B Natriuret Pep (0-450) pg/mL Total Protein (5.8-8.3) g/dL Albumin (3.0-4.8) g/dL Globulin gm/dL Albumin/Globulin Ratio (1.1-1.8) Triglycerides (35-160) mg/dL Cholesterol (130-200) mg/dL LDL Cholesterol Direct (0-129) mg/dL HDL Cholesterol (29-60) mg/dL 25-OH Vitamin D Total (30.0-100.0) NG/ML Procalcitonin (0.19-0.49) NG/ML Ur L.pneumophila Ag (NEGATIVE) 09/10/18 09/09/18 09/09/18 Range/Units 02:00 22:43 19:20 WBC (4.5-11.0) 10^3/uL RBC (3.5-6.1) 10^6/uL Hgb (12.0-16.0) g/dL Hct (36.0-48.0) % MCV (80.0-105.0) fl MCH (25.0-35.0) pg MCHC (31.0-37.0) g/dl RDW (11.5-14.5) % Plt Count (120.0-450.0) 10^3/uL MPV (7.0-11.0) fl Neut % (Auto) (50.0-68.0) % Lymph % (Auto) (22.0-35.0) % [place] % (Auto) (1.0-6.0) % Eos % (Auto) (1.5-5.0) % Baso % (Auto) (0.0-3.0) % Lymph # (Auto) (1.2-3.4) [place] # (Auto) (0.1-0.6) Eos # (Auto) (0.0-0.7) Baso # (Auto) (0.0-2.0) K/mm3 Absolute Neuts (auto) (1.4-6.5) PT (9.4-12.5) SECONDS INR APTT 76.2 H 104.2 H* (26.9-38.3) Seconds pCO2 (35-45) mm/Hg pO2 (80-100) mm/Hg HCO3 (21-28) mmol/L ABG pH (7.35-7.45) ABG Total CO2 (22-28) mmol.L ABG O2 Saturation (95-98) % ABG O2 Content (15-23) ML/dl ABG Base Excess (-2.0-3.0) mmol/L ABG Hemoglobin (11.7-17.4) g/dL ABG Carboxyhemoglobin (0.5-1.5) % POC ABG HHb (Measured) (0-5) % ABG Methemoglobin (0.0-3.0) % ABG O2 Capacity (16-24) mL/dl Hgb O2 Saturation (95.0-98.0) % FiO2 % Sodium (132-148) mmol/L Potassium (3.6-5.0) mmol/L Chloride (98-107) mmol/L Carbon Dioxide (21-33) mmol/L Anion Gap (10-20) BUN (7-21) mg/dL Creatinine (0.7-1.2) mg/dl Est GFR ( Amer) Est GFR (Non-Af Amer) POC Glucose (mg/dL) 93 (65-110) mg/dL Random Glucose (70-110) mg/dL Fructosamine (190-270) umol/L Calcium (8.4-10.5) mg/dL Phosphorus (2.5-4.5) mg/dL Magnesium (1.7-2.2) mg/dL Total Bilirubin (0.2-1.3) mg/dL Direct Bilirubin (0.0-0.4) mg/dL AST (14-36) U/L ALT (7-56) U/L Alkaline Phosphatase (38-126) U/L C-React Prot High Sens (1.00-3.00) mg/L NT-Pro-B Natriuret Pep (0-450) pg/mL Total Protein (5.8-8.3) g/dL Albumin (3.0-4.8) g/dL Globulin gm/dL Albumin/Globulin Ratio (1.1-1.8) Triglycerides (35-160) mg/dL Cholesterol (130-200) mg/dL LDL Cholesterol Direct (0-129) mg/dL HDL Cholesterol (29-60) mg/dL 25-OH Vitamin D Total (30.0-100.0) NG/ML Procalcitonin (0.19-0.49) NG/ML Ur L.pneumophila Ag (NEGATIVE) 09/09/18 09/09/18 09/09/18 Range/Units 17:29 13:10 11:21 WBC (4.5-11.0) 10^3/uL RBC (3.5-6.1) 10^6/uL Hgb (12.0-16.0) g/dL Hct (36.0-48.0) % MCV (80.0-105.0) fl MCH (25.0-35.0) pg MCHC (31.0-37.0) g/dl RDW (11.5-14.5) % Plt Count (120.0-450.0) 10^3/uL MPV (7.0-11.0) fl Neut % (Auto) (50.0-68.0) % Lymph % (Auto) (22.0-35.0) % [place] % (Auto) (1.0-6.0) % Eos % (Auto) (1.5-5.0) % Baso % (Auto) (0.0-3.0) % Lymph # (Auto) (1.2-3.4) [place] # (Auto) (0.1-0.6) Eos # (Auto) (0.0-0.7) Baso # (Auto) (0.0-2.0) K/mm3 Absolute Neuts (auto) (1.4-6.5) PT (9.4-12.5) SECONDS INR APTT 73.2 H (26.9-38.3) Seconds pCO2 (35-45) mm/Hg pO2 (80-100) mm/Hg HCO3 (21-28) mmol/L ABG pH (7.35-7.45) ABG Total CO2 (22-28) mmol.L ABG O2 Saturation (95-98) % ABG O2 Content (15-23) ML/dl ABG Base Excess (-2.0-3.0) mmol/L ABG Hemoglobin (11.7-17.4) g/dL ABG Carboxyhemoglobin (0.5-1.5) % POC ABG HHb (Measured) (0-5) % ABG Methemoglobin (0.0-3.0) % ABG O2 Capacity (16-24) mL/dl Hgb O2 Saturation (95.0-98.0) % FiO2 % Sodium (132-148) mmol/L Potassium (3.6-5.0) mmol/L Chloride (98-107) mmol/L Carbon Dioxide (21-33) mmol/L Anion Gap (10-20) BUN (7-21) mg/dL Creatinine (0.7-1.2) mg/dl Est GFR ( Amer) Est GFR (Non-Af Amer) POC Glucose (mg/dL) 111 H 118 H (65-110) mg/dL Random Glucose (70-110) mg/dL Fructosamine (190-270) umol/L Calcium (8.4-10.5) mg/dL Phosphorus (2.5-4.5) mg/dL Magnesium (1.7-2.2) mg/dL Total Bilirubin (0.2-1.3) mg/dL Direct Bilirubin (0.0-0.4) mg/dL AST (14-36) U/L ALT (7-56) U/L Alkaline Phosphatase (38-126) U/L C-React Prot High Sens (1.00-3.00) mg/L NT-Pro-B Natriuret Pep (0-450) pg/mL Total Protein (5.8-8.3) g/dL Albumin (3.0-4.8) g/dL Globulin gm/dL Albumin/Globulin Ratio (1.1-1.8) Triglycerides (35-160) mg/dL Cholesterol (130-200) mg/dL LDL Cholesterol Direct (0-129) mg/dL HDL Cholesterol (29-60) mg/dL 25-OH Vitamin D Total (30.0-100.0) NG/ML Procalcitonin (0.19-0.49) NG/ML Ur L.pneumophila Ag (NEGATIVE) 09/09/18 09/09/18 09/09/18 Range/Units 06:47 06:47 05:35 WBC 9.5 (4.5-11.0) 10^3/uL RBC 5.26 (3.5-6.1) 10^6/uL Hgb 15.6 (12.0-16.0) g/dL Hct 50.2 H (36.0-48.0) % MCV 95.4 D (80.0-105.0) fl MCH 29.7 (25.0-35.0) pg MCHC 31.1 (31.0-37.0) g/dl RDW 14.6 H (11.5-14.5) % Plt Count 191 (120.0-450.0) 10^3/uL MPV 10.0 (7.0-11.0) fl Neut % (Auto) 89.8 H (50.0-68.0) % Lymph % (Auto) 6.3 L (22.0-35.0) % [place] % (Auto) 3.9 (1.0-6.0) % Eos % (Auto) 0.0 L (1.5-5.0) % Baso % (Auto) 0.0 (0.0-3.0) % Lymph # (Auto) 0.6 L (1.2-3.4) [place] # (Auto) 0.4 (0.1-0.6) Eos # (Auto) 0.0 (0.0-0.7) Baso # (Auto) 0.00 (0.0-2.0) K/mm3 Absolute Neuts (auto) 8.52 H (1.4-6.5) PT 15.7 H (9.4-12.5) SECONDS INR 1.39 APTT 81.3 H (26.9-38.3) Seconds pCO2 (35-45) mm/Hg pO2 (80-100) mm/Hg HCO3 (21-28) mmol/L ABG pH (7.35-7.45) ABG Total CO2 (22-28) mmol.L ABG O2 Saturation (95-98) % ABG O2 Content (15-23) ML/dl ABG Base Excess (-2.0-3.0) mmol/L ABG Hemoglobin (11.7-17.4) g/dL ABG Carboxyhemoglobin (0.5-1.5) % POC ABG HHb (Measured) (0-5) % ABG Methemoglobin (0.0-3.0) % ABG O2 Capacity (16-24) mL/dl Hgb O2 Saturation (95.0-98.0) % FiO2 % Sodium 138 (132-148) mmol/L Potassium 4.9 (3.6-5.0) mmol/L Chloride 100 (98-107) mmol/L Carbon Dioxide 34 H (21-33) mmol/L Anion Gap 8 L (10-20) BUN 47 H (7-21) mg/dL Creatinine 1.0 (0.7-1.2) mg/dl Est GFR ( Amer) > 60 Est GFR (Non-Af Amer) 54 POC Glucose (mg/dL) (65-110) mg/dL Random Glucose 127 H (70-110) mg/dL Fructosamine (190-270) umol/L Calcium 8.4 (8.4-10.5) mg/dL Phosphorus 4.6 H (2.5-4.5) mg/dL Magnesium 1.8 (1.7-2.2) mg/dL Total Bilirubin 0.5 (0.2-1.3) mg/dL Direct Bilirubin 0.5 H (0.0-0.4) mg/dL AST 28 (14-36) U/L ALT 22 (7-56) U/L Alkaline Phosphatase 75 (38-126) U/L C-React Prot High Sens (1.00-3.00) mg/L NT-Pro-B Natriuret Pep 82693 H (0-450) pg/mL Total Protein 5.6 L (5.8-8.3) g/dL Albumin 2.7 L (3.0-4.8) g/dL Globulin 2.9 gm/dL Albumin/Globulin Ratio 1.0 L (1.1-1.8) Triglycerides 121 (35-160) mg/dL Cholesterol 90 L (130-200) mg/dL LDL Cholesterol Direct 50 (0-129) mg/dL HDL Cholesterol 21 L (29-60) mg/dL 25-OH Vitamin D Total (30.0-100.0) NG/ML Procalcitonin (0.19-0.49) NG/ML Ur L.pneumophila Ag (NEGATIVE) 09/08/18 09/08/18 09/08/18 Range/Units 23:30 23:30 23:15 WBC (4.5-11.0) 10^3/uL RBC (3.5-6.1) 10^6/uL Hgb (12.0-16.0) g/dL Hct (36.0-48.0) % MCV (80.0-105.0) fl MCH (25.0-35.0) pg MCHC (31.0-37.0) g/dl RDW (11.5-14.5) % Plt Count (120.0-450.0) 10^3/uL MPV (7.0-11.0) fl Neut % (Auto) (50.0-68.0) % Lymph % (Auto) (22.0-35.0) % [place] % (Auto) (1.0-6.0) % Eos % (Auto) (1.5-5.0) % Baso % (Auto) (0.0-3.0) % Lymph # (Auto) (1.2-3.4) [place] # (Auto) (0.1-0.6) Eos # (Auto) (0.0-0.7) Baso # (Auto) (0.0-2.0) K/mm3 Absolute Neuts (auto) (1.4-6.5) PT (9.4-12.5) SECONDS INR APTT (26.9-38.3) Seconds pCO2 (35-45) mm/Hg pO2 (80-100) mm/Hg HCO3 (21-28) mmol/L ABG pH (7.35-7.45) ABG Total CO2 (22-28) mmol.L ABG O2 Saturation (95-98) % ABG O2 Content (15-23) ML/dl ABG Base Excess (-2.0-3.0) mmol/L ABG Hemoglobin (11.7-17.4) g/dL ABG Carboxyhemoglobin (0.5-1.5) % POC ABG HHb (Measured) (0-5) % ABG Methemoglobin (0.0-3.0) % ABG O2 Capacity (16-24) mL/dl Hgb O2 Saturation (95.0-98.0) % FiO2 % Sodium (132-148) mmol/L Potassium (3.6-5.0) mmol/L Chloride (98-107) mmol/L Carbon Dioxide (21-33) mmol/L Anion Gap (10-20) BUN (7-21) mg/dL Creatinine (0.7-1.2) mg/dl Est GFR ( Amer) Est GFR (Non-Af Amer) POC Glucose (mg/dL) (65-110) mg/dL Random Glucose (70-110) mg/dL Fructosamine (190-270) umol/L Calcium (8.4-10.5) mg/dL Phosphorus (2.5-4.5) mg/dL Magnesium (1.7-2.2) mg/dL Total Bilirubin (0.2-1.3) mg/dL Direct Bilirubin (0.0-0.4) mg/dL AST (14-36) U/L ALT (7-56) U/L Alkaline Phosphatase (38-126) U/L C-React Prot High Sens (1.00-3.00) mg/L NT-Pro-B Natriuret Pep (0-450) pg/mL Total Protein (5.8-8.3) g/dL Albumin (3.0-4.8) g/dL Globulin gm/dL Albumin/Globulin Ratio (1.1-1.8) Triglycerides (35-160) mg/dL Cholesterol (130-200) mg/dL LDL Cholesterol Direct (0-129) mg/dL HDL Cholesterol (29-60) mg/dL 25-OH Vitamin D Total < 12.8 L (30.0-100.0) NG/ML Procalcitonin < 0.05 L (0.19-0.49) NG/ML Ur L.pneumophila Ag Negative (NEGATIVE) 09/08/18 09/08/18 Range/Units 19:40 19:40 WBC (4.5-11.0) 10^3/uL RBC (3.5-6.1) 10^6/uL Hgb (12.0-16.0) g/dL Hct (36.0-48.0) % MCV (80.0-105.0) fl MCH (25.0-35.0) pg MCHC (31.0-37.0) g/dl RDW (11.5-14.5) % Plt Count (120.0-450.0) 10^3/uL MPV (7.0-11.0) fl Neut % (Auto) (50.0-68.0) % Lymph % (Auto) (22.0-35.0) % [place] % (Auto) (1.0-6.0) % Eos % (Auto) (1.5-5.0) % Baso % (Auto) (0.0-3.0) % Lymph # (Auto) (1.2-3.4) [place] # (Auto) (0.1-0.6) Eos # (Auto) (0.0-0.7) Baso # (Auto) (0.0-2.0) K/mm3 Absolute Neuts (auto) (1.4-6.5) PT (9.4-12.5) SECONDS INR APTT (26.9-38.3) Seconds pCO2 (35-45) mm/Hg pO2 (80-100) mm/Hg HCO3 (21-28) mmol/L ABG pH (7.35-7.45) ABG Total CO2 (22-28) mmol.L ABG O2 Saturation (95-98) % ABG O2 Content (15-23) ML/dl ABG Base Excess (-2.0-3.0) mmol/L ABG Hemoglobin (11.7-17.4) g/dL ABG Carboxyhemoglobin (0.5-1.5) % POC ABG HHb (Measured) (0-5) % ABG Methemoglobin (0.0-3.0) % ABG O2 Capacity (16-24) mL/dl Hgb O2 Saturation (95.0-98.0) % FiO2 % Sodium (132-148) mmol/L Potassium (3.6-5.0) mmol/L Chloride (98-107) mmol/L Carbon Dioxide (21-33) mmol/L Anion Gap (10-20) BUN (7-21) mg/dL Creatinine (0.7-1.2) mg/dl Est GFR ( Amer) Est GFR (Non-Af Amer) POC Glucose (mg/dL) (65-110) mg/dL Random Glucose (70-110) mg/dL Fructosamine 188 L (190-270) umol/L Calcium (8.4-10.5) mg/dL Phosphorus (2.5-4.5) mg/dL Magnesium (1.7-2.2) mg/dL Total Bilirubin (0.2-1.3) mg/dL Direct Bilirubin (0.0-0.4) mg/dL AST (14-36) U/L ALT (7-56) U/L Alkaline Phosphatase (38-126) U/L C-React Prot High Sens > 15.00 H (1.00-3.00) mg/L NT-Pro-B Natriuret Pep (0-450) pg/mL Total Protein (5.8-8.3) g/dL Albumin (3.0-4.8) g/dL Globulin gm/dL Albumin/Globulin Ratio (1.1-1.8) Triglycerides (35-160) mg/dL Cholesterol (130-200) mg/dL LDL Cholesterol Direct (0-129) mg/dL HDL Cholesterol (29-60) mg/dL 25-OH Vitamin D Total (30.0-100.0) NG/ML Procalcitonin (0.19-0.49) NG/ML Ur L.pneumophila Ag (NEGATIVE) Laboratory Results - last 24 hr 09/08/18 09/08/18 09/08/18 19:40 19:40 23:15 WBC RBC Hgb Hct MCV MCH MCHC RDW Plt Count MPV Neut % (Auto) Lymph % (Auto) [place] % (Auto) Eos % (Auto) Baso % (Auto) Lymph # (Auto) [place] # (Auto) Eos # (Auto) Baso # (Auto) Absolute Neuts (auto) PT INR APTT pCO2 pO2 HCO3 ABG pH ABG Total CO2 ABG O2 Saturation ABG O2 Content ABG Base Excess ABG Hemoglobin ABG Carboxyhemoglobin POC ABG HHb (Measured) ABG Methemoglobin ABG O2 Capacity Hgb O2 Saturation FiO2 Sodium Potassium Chloride Carbon Dioxide Anion Gap BUN Creatinine Est GFR ( Amer) Est GFR (Non-Af Amer) POC Glucose (mg/dL) Random Glucose Fructosamine 188 L Calcium Phosphorus Magnesium Total Bilirubin Direct Bilirubin AST ALT Alkaline Phosphatase C-React Prot High Sens > 15.00 H NT-Pro-B Natriuret Pep Total Protein Albumin Globulin Albumin/Globulin Ratio Triglycerides Cholesterol LDL Cholesterol Direct HDL Cholesterol 25-OH Vitamin D Total Procalcitonin Ur L.pneumophila Ag Negative 09/08/18 09/08/18 09/09/18 23:30 23:30 05:35 WBC 9.5 RBC 5.26 Hgb 15.6 Hct 50.2 H MCV 95.4 D MCH 29.7 MCHC 31.1 RDW 14.6 H Plt Count 191 MPV 10.0 Neut % (Auto) 89.8 H Lymph % (Auto) 6.3 L [place] % (Auto) 3.9 Eos % (Auto) 0.0 L Baso % (Auto) 0.0 Lymph # (Auto) 0.6 L [place] # (Auto) 0.4 Eos # (Auto) 0.0 Baso # (Auto) 0.00 Absolute Neuts (auto) 8.52 H PT INR APTT pCO2 pO2 HCO3 ABG pH ABG Total CO2 ABG O2 Saturation ABG O2 Content ABG Base Excess ABG Hemoglobin ABG Carboxyhemoglobin POC ABG HHb (Measured) ABG Methemoglobin ABG O2 Capacity Hgb O2 Saturation FiO2 Sodium Potassium Chloride Carbon Dioxide Anion Gap BUN Creatinine Est GFR ( Amer) Est GFR (Non-Af Amer) POC Glucose (mg/dL) Random Glucose Fructosamine Calcium Phosphorus Magnesium Total Bilirubin Direct Bilirubin AST ALT Alkaline Phosphatase C-React Prot High Sens NT-Pro-B Natriuret Pep Total Protein Albumin Globulin Albumin/Globulin Ratio Triglycerides Cholesterol LDL Cholesterol Direct HDL Cholesterol 25-OH Vitamin D Total < 12.8 L Procalcitonin < 0.05 L Ur L.pneumophila Ag 09/09/18 09/09/18 09/09/18 06:47 06:47 11:21 WBC RBC Hgb Hct MCV MCH MCHC RDW Plt Count MPV Neut % (Auto) Lymph % (Auto) [place] % (Auto) Eos % (Auto) Baso % (Auto) Lymph # (Auto) [place] # (Auto) Eos # (Auto) Baso # (Auto) Absolute Neuts (auto) PT 15.7 H INR 1.39 APTT 81.3 H pCO2 pO2 HCO3 ABG pH ABG Total CO2 ABG O2 Saturation ABG O2 Content ABG Base Excess ABG Hemoglobin ABG Carboxyhemoglobin POC ABG HHb (Measured) ABG Methemoglobin ABG O2 Capacity Hgb O2 Saturation FiO2 Sodium 138 Potassium 4.9 Chloride 100 Carbon Dioxide 34 H Anion Gap 8 L BUN 47 H Creatinine 1.0 Est GFR ( Amer) > 60 Est GFR (Non-Af Amer) 54 POC Glucose (mg/dL) 118 H Random Glucose 127 H Fructosamine Calcium 8.4 Phosphorus 4.6 H Magnesium 1.8 Total Bilirubin 0.5 Direct Bilirubin 0.5 H AST 28 ALT 22 Alkaline Phosphatase 75 C-React Prot High Sens NT-Pro-B Natriuret Pep 21847 H Total Protein 5.6 L Albumin 2.7 L Globulin 2.9 Albumin/Globulin Ratio 1.0 L Triglycerides 121 Cholesterol 90 L LDL Cholesterol Direct 50 HDL Cholesterol 21 L 25-OH Vitamin D Total Procalcitonin Ur L.pneumophila Ag 09/09/18 09/09/18 09/09/18 13:10 17:29 19:20 WBC RBC Hgb Hct MCV MCH MCHC RDW Plt Count MPV Neut % (Auto) Lymph % (Auto) [place] % (Auto) Eos % (Auto) Baso % (Auto) Lymph # (Auto) [place] # (Auto) Eos # (Auto) Baso # (Auto) Absolute Neuts (auto) PT INR APTT 73.2 H 104.2 H* pCO2 pO2 HCO3 ABG pH ABG Total CO2 ABG O2 Saturation ABG O2 Content ABG Base Excess ABG Hemoglobin ABG Carboxyhemoglobin POC ABG HHb (Measured) ABG Methemoglobin ABG O2 Capacity Hgb O2 Saturation FiO2 Sodium Potassium Chloride Carbon Dioxide Anion Gap BUN Creatinine Est GFR ( Amer) Est GFR (Non-Af Amer) POC Glucose (mg/dL) 111 H Random Glucose Fructosamine Calcium Phosphorus Magnesium Total Bilirubin Direct Bilirubin AST ALT Alkaline Phosphatase C-React Prot High Sens NT-Pro-B Natriuret Pep Total Protein Albumin Globulin Albumin/Globulin Ratio Triglycerides Cholesterol LDL Cholesterol Direct HDL Cholesterol 25-OH Vitamin D Total Procalcitonin Ur L.pneumophila Ag 09/09/18 09/10/18 09/10/18 22:43 02:00 05:26 WBC RBC Hgb Hct MCV MCH MCHC RDW Plt Count MPV Neut % (Auto) Lymph % (Auto) [place] % (Auto) Eos % (Auto) Baso % (Auto) Lymph # (Auto) [place] # (Auto) Eos # (Auto) Baso # (Auto) Absolute Neuts (auto) PT INR APTT 76.2 H pCO2 pO2 HCO3 ABG pH ABG Total CO2 ABG O2 Saturation ABG O2 Content ABG Base Excess ABG Hemoglobin ABG Carboxyhemoglobin POC ABG HHb (Measured) ABG Methemoglobin ABG O2 Capacity Hgb O2 Saturation FiO2 Sodium Potassium Chloride Carbon Dioxide Anion Gap BUN Creatinine Est GFR ( Amer) Est GFR (Non-Af Amer) POC Glucose (mg/dL) 93 113 H Random Glucose Fructosamine Calcium Phosphorus Magnesium Total Bilirubin Direct Bilirubin AST ALT Alkaline Phosphatase C-React Prot High Sens NT-Pro-B Natriuret Pep Total Protein Albumin Globulin Albumin/Globulin Ratio Triglycerides Cholesterol LDL Cholesterol Direct HDL Cholesterol 25-OH Vitamin D Total Procalcitonin Ur L.pneumophila Ag 09/10/18 09/10/18 05:40 06:10 WBC 10.4 RBC 4.88 Hgb 14.4 Hct 46.4 MCV 95.1 MCH 29.5 MCHC 31.0 RDW 14.8 H Plt Count 215 MPV 10.2 Neut % (Auto) 89.0 H Lymph % (Auto) 7.2 L [place] % (Auto) 3.7 Eos % (Auto) 0.0 L Baso % (Auto) 0.1 Lymph # (Auto) 0.8 L [place] # (Auto) 0.4 Eos # (Auto) 0.0 Baso # (Auto) 0.01 Absolute Neuts (auto) 9.24 H PT INR APTT pCO2 48 H pO2 93.0 HCO3 31.9 H ABG pH 7.43 ABG Total CO2 33.4 H ABG O2 Saturation 98.5 H ABG O2 Content 19.2 ABG Base Excess 6.4 H ABG Hemoglobin 14.2 ABG Carboxyhemoglobin 1.8 H POC ABG HHb (Measured) 1.5 ABG Methemoglobin 1.0 ABG O2 Capacity 19.5 Hgb O2 Saturation 95.6 FiO2 60.0 Sodium Potassium Chloride Carbon Dioxide Anion Gap BUN Creatinine Est GFR ( Amer) Est GFR (Non-Af Amer) POC Glucose (mg/dL) Random Glucose Fructosamine Calcium Phosphorus Magnesium Total Bilirubin Direct Bilirubin AST ALT Alkaline Phosphatase C-React Prot High Sens NT-Pro-B Natriuret Pep Total Protein Albumin Globulin Albumin/Globulin Ratio Triglycerides Cholesterol LDL Cholesterol Direct HDL Cholesterol 25-OH Vitamin D Total Procalcitonin Ur L.pneumophila Ag Radiology Impressions: Radiology Impressions Extremity Ultrasound 09/08/18 00:00 IMPRESSION: No sonographic evidence for deep venous thrombosis in the visualized segments of both lower extremities. Abdomen Ultrasound 09/08/18 23:16 IMPRESSION: Mild hepatomegaly. Diffuse increased echogenicity in the liver may reflect hepatic steatosis however parenchymal infectious/ inflammatory etiologies cannot be entirely excluded. Clinical and laboratory correlation is advised. Cholelithiasis. No biliary dilatation. The right kidney is not visualized and may be obscured by bowel gas. Chest X-Ray 09/09/18 05:00 IMPRESSION: Stable position of endotracheal tube. No change in moderate right and small left effusions. Right lower lobe airspace disease may represent atelectasis or developing pneumonia. Follow-up is advised. EKG/Cardiology Studies: Cardiology / EKG Studies 09/09/18 07:00 EKG [ELECTROCARDIOGRAM] DAILY Comment: Reason For Exam: AMI 09/10/18 07:00 EKG [ELECTROCARDIOGRAM] DAILY Comment: Reason For Exam: AMI 09/11/18 07:00 EKG [ELECTROCARDIOGRAM] DAILY Comment: Reason For Exam: AMI Fingerstick Blood Sugar Results: 113 Review of Systems - Constitutional Constitutional: absent: Fever, Chills - Cardiovascular Cardiovascular: absent: Chest Pain, Orthopnea, Palpitations - Respiratory Respiratory: absent: Cough, Hemoptysis - Genitourinary Genitourinary: absent: Flank Pain, Urinary Frequency - Endocrine Endocrine: absent: Palpitations Critical Care Progress Note - Ventilator Checklist Head of Bed 30 Degrees: Yes Daily Sedation Vacation: Yes Daily Assessment of Readiness to Wean: Yes Daily Spontaneous Breathing Trial: Yes PUD Prophalyxis: Yes DVT Prophylaxis: Yes Oral Care with Chlorhexidine Gluconate {CHG}: Yes - Nutrition Nutrition: Nutrition Category Date Time Status NPO Diet [DIET] Diets 09/09/18 Breakfast Ordered Assessment/Plan - Assessment and Plan (Free Text) Assessment: 3 y/o female admitted to ICU for AMS and respiratory distress found to have PE on right lung with possible PNA and biventricular dysfunction in the setting of CHF exacerbation Plan: Neuro: -AAO x3 in NAD -maintain normthermia Cardio: -Echo: moderate to severe LV dysfunction. Right ventricular hypokinesia and strain in the setting of PE -continue dobutamine 2.5 mcg/kg/min -continue lasix 40 mg q12h -BNP [id number] -trops trending down 0.13 to 0.08 likely due to RV strain in the setting of PE -maintain MAP> 65 -cardiology following Pulm: -resolved acute respiratory failure -extubated this am. was desating on high flow at 85%. placed on BiPAP -CT chest: subsegmental right lung PE with small pleural effusion -LE doppler negative for DVT -on therapeutic heparin drip -PTT 184--81.3 -AB.43/48/93/31 -CXR: vascular congestion. possible PNA -continue solu-medrol 20 mg q12h ID: -possible cellulitis on abdominal wall, hips -CPK normal -UCx, MRSA, legionella negative -f/u strep Ag, BCx -low procal -continue meropenem, doxycycline PO. d/c vancomycin as per ID -afebrile, no leukocytosis -ID following /Renal: -CKD with proteinurea -maintain euvolemia, euglycemia -UDS negative -nephrology following Prophylaxis: PPI SCD, therapeutic heparin Continue ICU management Case reviewed and discussed with attending Dr Brink <Byron Brink - Last Filed: 09/10/18 18:04> CCU Objective - Vital Signs / Intake & Output Vital Signs (Last 4 hours): Vital Signs Pulse Resp 09/10/18 16:24 78 20 Intake and Output (Last 8hrs): Intake & Output 09/10/18 09/10/18 09/10/18 06:59 14:59 22:59 Intake Total 466 Output Total 1375 Balance -909 Intake: IV 466 Left Hand 250 Right Internal Jugular 216 Output: Urine 1375 Urethral (Alonzo) 1375 - Medications Active Medications: Active Medications Generic Name Dose Route Start Last Admin Trade Name Freq PRN Reason Stop Dose Admin Acetaminophen 650 mg 09/08/18 14:22 Tylenol 325mg Tab PO Q6 PRN TEMP>=99.5F Acetaminophen 650 mg 09/08/18 14:22 Tylenol 650 Mg Supp RC Q6H PRN TEMP>=99.5F Allopurinol 100 mg 09/09/18 10:00 09/09/18 17:39 Zyloprim PO Not Given DAILY SABHIA Dextrose 0 ml 09/08/18 22:59 Dextrose 50% Inj IV STAT PRN Hypoglycemia Protocol Protocol Doxycycline Hyclate 100 mg 09/10/18 22:00 Doryx PO Q12 SABIHA Protocol Ergocalciferol 1 cap 09/10/18 14:30 Drisdol 50,000 Intl Units Cap PO Q7D SABIHA Furosemide 40 mg 09/08/18 23:00 09/10/18 09:02 Lasix IVP 40 mg Q12 SABIHA Administration Heparin Sodium/Sodium Chloride 25,000 units in 250 mls @ 19.922 mls/hr 09/08/18 16:40 09/10/18 06:33 Heparin 50052 Units/250ml 1/2 Normal Saline IV 10 units/kg/hr .[id number] PRN 11.068 mls/hr ADJUST RATE PER PROTOCOL Administration Protocol 18 UNITS/KG/HR Meropenem 1 gm in 50 mls @ 100 mls/hr 09/08/18 22:00 09/10/18 09:02 Merrem Iv 1 Gm Premix IVPB 09/17/18 22:01 100 mls/hr Q12 SABIHA Administration Protocol Dextrose 1,000 mls @ 0 mls/hr 09/08/18 22:59 Dextrose 5% In Water 1000 Ml IV .Q0M PRN Hypoglycemia Protocol Protocol Per Protocol Dobutamine HCl/Dextrose 500 mg in 250 mls @ 8.301 mls/hr 09/09/18 16:30 09/09/18 17:42 Dobutamine/Dextrose 5% 500mg/250ml IV 2.5 mcg/kg/min .Q24H PRN 8.301 mls/hr TITRATE PER PROTOCOL Administration Protocol 2.5 MCG/KG/MIN Insulin Human Lispro 0 units 09/08/18 23:01 09/10/18 11:30 Humalog High SC Not Given Q6H SABIHA Protocol Lactic Acid 0 ea 09/10/18 10:00 09/10/18 09:01 Lac-Hydrin 12% Cream (140 G) TOP 1 applic DAILY SABIHA Administration Levalbuterol HCl 0.63 mg 09/08/18 20:00 09/10/18 13:05 Xopenex IH 0.63 mg [id number] SABIHA Administration Methylprednisolone 20 mg 09/09/18 08:15 09/10/18 09:04 Solu-Medrol IVP 20 mg Q12H SABIHA Administration Nicotine 1 patch 09/09/18 10:00 09/10/18 09:03 Nicoderm Cq TD 1 patch DAILY SABIHA Administration Nystatin 0 gm 09/08/18 18:00 09/10/18 05:08 Nystop Topical Powder TOP 2 pdr Q6 SABIHA Administration Nystatin 0 ea 09/08/18 23:00 09/10/18 09:03 Mycostatin Cream TOP 1 unit TID SABIHA Administration Ondansetron HCl 4 mg 09/08/18 14:22 Zofran Inj IVP Q4H PRN Nausea/Vomiting Pantoprazole Sodium 40 mg 09/08/18 22:00 09/10/18 09:04 Protonix Inj IVP 40 mg Q12 SABIHA Administration - Patient Studies Lab Studies: Microbiology Studies 09/08/18 12:30 Blood Culture - Preliminary Blood NO GROWTH AFTER 48 HOURS 09/08/18 12:00 Blood Culture - Preliminary Blood NO GROWTH AFTER 48 HOURS 09/08/18 16:30 MRSA Culture (Admit) - Final Naris MRSA NOT DETECTED Lab Studies 09/10/18 09/10/18 09/10/18 Range/Units 11:06 10:10 06:10 WBC (4.5-11.0) 10^3/uL RBC (3.5-6.1) 10^6/uL Hgb (12.0-16.0) g/dL Hct (36.0-48.0) % MCV (80.0-105.0) fl MCH (25.0-35.0) pg MCHC (31.0-37.0) g/dl RDW (11.5-14.5) % Plt Count (120.0-450.0) 10^3/uL MPV (7.0-11.0) fl Neut % (Auto) (50.0-68.0) % Lymph % (Auto) (22.0-35.0) % [place] % (Auto) (1.0-6.0) % Eos % (Auto) (1.5-5.0) % Baso % (Auto) (0.0-3.0) % Lymph # (Auto) (1.2-3.4) [place] # (Auto) (0.1-0.6) Eos # (Auto) (0.0-0.7) Baso # (Auto) (0.0-2.0) K/mm3 Absolute Neuts (auto) (1.4-6.5) APTT 68.2 H (26.9-38.3) Seconds pCO2 48 H (35-45) mm/Hg pO2 93.0 (80-100) mm/Hg HCO3 31.9 H (21-28) mmol/L ABG pH 7.43 (7.35-7.45) ABG Total CO2 33.4 H (22-28) mmol.L ABG O2 Saturation 98.5 H (95-98) % ABG O2 Content 19.2 (15-23) ML/dl ABG Base Excess 6.4 H (-2.0-3.0) mmol/L ABG Hemoglobin 14.2 (11.7-17.4) g/dL ABG Carboxyhemoglobin 1.8 H (0.5-1.5) % POC ABG HHb (Measured) 1.5 (0-5) % ABG Methemoglobin 1.0 (0.0-3.0) % ABG O2 Capacity 19.5 (16-24) mL/dl Hgb O2 Saturation 95.6 (95.0-98.0) % FiO2 60.0 % Sodium (132-148) mmol/L Potassium (3.6-5.0) mmol/L Chloride (98-107) mmol/L Carbon Dioxide (21-33) mmol/L Anion Gap (10-20) BUN (7-21) mg/dL Creatinine (0.7-1.2) mg/dl Est GFR ( Amer) Est GFR (Non-Af Amer) POC Glucose (mg/dL) 109 (65-110) mg/dL Random Glucose (70-110) mg/dL Calcium (8.4-10.5) mg/dL Phosphorus (2.5-4.5) mg/dL Magnesium (1.7-2.2) mg/dL Total Bilirubin (0.2-1.3) mg/dL Direct Bilirubin (0.0-0.4) mg/dL AST (14-36) U/L ALT (7-56) U/L Alkaline Phosphatase (38-126) U/L NT-Pro-B Natriuret Pep (0-450) pg/mL Total Protein (5.8-8.3) g/dL Albumin (3.0-4.8) g/dL Globulin gm/dL Albumin/Globulin Ratio (1.1-1.8) 09/10/18 09/10/18 09/10/18 Range/Units 05:40 05:40 05:26 WBC 10.4 (4.5-11.0) 10^3/uL RBC 4.88 (3.5-6.1) 10^6/uL Hgb 14.4 (12.0-16.0) g/dL Hct 46.4 (36.0-48.0) % MCV 95.1 (80.0-105.0) fl MCH 29.5 (25.0-35.0) pg MCHC 31.0 (31.0-37.0) g/dl RDW 14.8 H (11.5-14.5) % Plt Count 215 (120.0-450.0) 10^3/uL MPV 10.2 (7.0-11.0) fl Neut % (Auto) 89.0 H (50.0-68.0) % Lymph % (Auto) 7.2 L (22.0-35.0) % [place] % (Auto) 3.7 (1.0-6.0) % Eos % (Auto) 0.0 L (1.5-5.0) % Baso % (Auto) 0.1 (0.0-3.0) % Lymph # (Auto) 0.8 L (1.2-3.4) [place] # (Auto) 0.4 (0.1-0.6) Eos # (Auto) 0.0 (0.0-0.7) Baso # (Auto) 0.01 (0.0-2.0) K/mm3 Absolute Neuts (auto) 9.24 H (1.4-6.5) APTT (26.9-38.3) Seconds pCO2 (35-45) mm/Hg pO2 (80-100) mm/Hg HCO3 (21-28) mmol/L ABG pH (7.35-7.45) ABG Total CO2 (22-28) mmol.L ABG O2 Saturation (95-98) % ABG O2 Content (15-23) ML/dl ABG Base Excess (-2.0-3.0) mmol/L ABG Hemoglobin (11.7-17.4) g/dL ABG Carboxyhemoglobin (0.5-1.5) % POC ABG HHb (Measured) (0-5) % ABG Methemoglobin (0.0-3.0) % ABG O2 Capacity (16-24) mL/dl Hgb O2 Saturation (95.0-98.0) % FiO2 % Sodium 142 (132-148) mmol/L Potassium 4.5 (3.6-5.0) mmol/L Chloride 101 (98-107) mmol/L Carbon Dioxide 34 H (21-33) mmol/L Anion Gap 11 (10-20) BUN 53 H (7-21) mg/dL Creatinine 1.0 (0.7-1.2) mg/dl Est GFR ( Amer) > 60 Est GFR (Non-Af Amer) 54 POC Glucose (mg/dL) 113 H (65-110) mg/dL Random Glucose 114 H (70-110) mg/dL Calcium 8.0 L (8.4-10.5) mg/dL Phosphorus 4.3 (2.5-4.5) mg/dL Magnesium 1.7 (1.7-2.2) mg/dL Total Bilirubin 0.5 (0.2-1.3) mg/dL Direct Bilirubin 0.5 H (0.0-0.4) mg/dL AST 22 (14-36) U/L ALT 22 (7-56) U/L Alkaline Phosphatase 69 (38-126) U/L NT-Pro-B Natriuret Pep 4690 H (0-450) pg/mL Total Protein 5.3 L (5.8-8.3) g/dL Albumin 2.5 L (3.0-4.8) g/dL Globulin 2.7 gm/dL Albumin/Globulin Ratio 0.9 L (1.1-1.8) 09/10/18 09/09/18 09/09/18 Range/Units 02:00 22:43 19:20 WBC (4.5-11.0) 10^3/uL RBC (3.5-6.1) 10^6/uL Hgb (12.0-16.0) g/dL Hct (36.0-48.0) % MCV (80.0-105.0) fl MCH (25.0-35.0) pg MCHC (31.0-37.0) g/dl RDW (11.5-14.5) % Plt Count (120.0-450.0) 10^3/uL MPV (7.0-11.0) fl Neut % (Auto) (50.0-68.0) % Lymph % (Auto) (22.0-35.0) % [place] % (Auto) (1.0-6.0) % Eos % (Auto) (1.5-5.0) % Baso % (Auto) (0.0-3.0) % Lymph # (Auto) (1.2-3.4) [place] # (Auto) (0.1-0.6) Eos # (Auto) (0.0-0.7) Baso # (Auto) (0.0-2.0) K/mm3 Absolute Neuts (auto) (1.4-6.5) APTT 76.2 H 104.2 H* (26.9-38.3) Seconds pCO2 (35-45) mm/Hg pO2 (80-100) mm/Hg HCO3 (21-28) mmol/L ABG pH (7.35-7.45) ABG Total CO2 (22-28) mmol.L ABG O2 Saturation (95-98) % ABG O2 Content (15-23) ML/dl ABG Base Excess (-2.0-3.0) mmol/L ABG Hemoglobin (11.7-17.4) g/dL ABG Carboxyhemoglobin (0.5-1.5) % POC ABG HHb (Measured) (0-5) % ABG Methemoglobin (0.0-3.0) % ABG O2 Capacity (16-24) mL/dl Hgb O2 Saturation (95.0-98.0) % FiO2 % Sodium (132-148) mmol/L Potassium (3.6-5.0) mmol/L Chloride (98-107) mmol/L Carbon Dioxide (21-33) mmol/L Anion Gap (10-20) BUN (7-21) mg/dL Creatinine (0.7-1.2) mg/dl Est GFR ( Amer) Est GFR (Non-Af Amer) POC Glucose (mg/dL) 93 (65-110) mg/dL Random Glucose (70-110) mg/dL Calcium (8.4-10.5) mg/dL Phosphorus (2.5-4.5) mg/dL Magnesium (1.7-2.2) mg/dL Total Bilirubin (0.2-1.3) mg/dL Direct Bilirubin (0.0-0.4) mg/dL AST (14-36) U/L ALT (7-56) U/L Alkaline Phosphatase (38-126) U/L NT-Pro-B Natriuret Pep (0-450) pg/mL Total Protein (5.8-8.3) g/dL Albumin (3.0-4.8) g/dL Globulin gm/dL Albumin/Globulin Ratio (1.1-1.8) 09/09/18 Range/Units 17:29 WBC (4.5-11.0) 10^3/uL RBC (3.5-6.1) 10^6/uL Hgb (12.0-16.0) g/dL Hct (36.0-48.0) % MCV (80.0-105.0) fl MCH (25.0-35.0) pg MCHC (31.0-37.0) g/dl RDW (11.5-14.5) % Plt Count (120.0-450.0) 10^3/uL MPV (7.0-11.0) fl Neut % (Auto) (50.0-68.0) % Lymph % (Auto) (22.0-35.0) % [place] % (Auto) (1.0-6.0) % Eos % (Auto) (1.5-5.0) % Baso % (Auto) (0.0-3.0) % Lymph # (Auto) (1.2-3.4) [place] # (Auto) (0.1-0.6) Eos # (Auto) (0.0-0.7) Baso # (Auto) (0.0-2.0) K/mm3 Absolute Neuts (auto) (1.4-6.5) APTT (26.9-38.3) Seconds pCO2 (35-45) mm/Hg pO2 (80-100) mm/Hg HCO3 (21-28) mmol/L ABG pH (7.35-7.45) ABG Total CO2 (22-28) mmol.L ABG O2 Saturation (95-98) % ABG O2 Content (15-23) ML/dl ABG Base Excess (-2.0-3.0) mmol/L ABG Hemoglobin (11.7-17.4) g/dL ABG Carboxyhemoglobin (0.5-1.5) % POC ABG HHb (Measured) (0-5) % ABG Methemoglobin (0.0-3.0) % ABG O2 Capacity (16-24) mL/dl Hgb O2 Saturation (95.0-98.0) % FiO2 % Sodium (132-148) mmol/L Potassium (3.6-5.0) mmol/L Chloride (98-107) mmol/L Carbon Dioxide (21-33) mmol/L Anion Gap (10-20) BUN (7-21) mg/dL Creatinine (0.7-1.2) mg/dl Est GFR ( Amer) Est GFR (Non-Af Amer) POC Glucose (mg/dL) 111 H (65-110) mg/dL Random Glucose (70-110) mg/dL Calcium (8.4-10.5) mg/dL Phosphorus (2.5-4.5) mg/dL Magnesium (1.7-2.2) mg/dL Total Bilirubin (0.2-1.3) mg/dL Direct Bilirubin (0.0-0.4) mg/dL AST (14-36) U/L ALT (7-56) U/L Alkaline Phosphatase (38-126) U/L NT-Pro-B Natriuret Pep (0-450) pg/mL Total Protein (5.8-8.3) g/dL Albumin (3.0-4.8) g/dL Globulin gm/dL Albumin/Globulin Ratio (1.1-1.8) Laboratory Results - last 24 hr 09/09/18 09/09/18 09/09/18 17:29 19:20 22:43 WBC RBC Hgb Hct MCV MCH MCHC RDW Plt Count MPV Neut % (Auto) Lymph % (Auto) [place] % (Auto) Eos % (Auto) Baso % (Auto) Lymph # (Auto) [place] # (Auto) Eos # (Auto) Baso # (Auto) Absolute Neuts (auto) APTT 104.2 H* pCO2 pO2 HCO3 ABG pH ABG Total CO2 ABG O2 Saturation ABG O2 Content ABG Base Excess ABG Hemoglobin ABG Carboxyhemoglobin POC ABG HHb (Measured) ABG Methemoglobin ABG O2 Capacity Hgb O2 Saturation FiO2 Sodium Potassium Chloride Carbon Dioxide Anion Gap BUN Creatinine Est GFR ( Amer) Est GFR (Non-Af Amer) POC Glucose (mg/dL) 111 H 93 Random Glucose Calcium Phosphorus Magnesium Total Bilirubin Direct Bilirubin AST ALT Alkaline Phosphatase NT-Pro-B Natriuret Pep Total Protein Albumin Globulin Albumin/Globulin Ratio 09/10/18 09/10/18 09/10/18 02:00 05:26 05:40 WBC 10.4 RBC 4.88 Hgb 14.4 Hct 46.4 MCV 95.1 MCH 29.5 MCHC 31.0 RDW 14.8 H Plt Count 215 MPV 10.2 Neut % (Auto) 89.0 H Lymph % (Auto) 7.2 L [place] % (Auto) 3.7 Eos % (Auto) 0.0 L Baso % (Auto) 0.1 Lymph # (Auto) 0.8 L [place] # (Auto) 0.4 Eos # (Auto) 0.0 Baso # (Auto) 0.01 Absolute Neuts (auto) 9.24 H APTT 76.2 H pCO2 pO2 HCO3 ABG pH ABG Total CO2 ABG O2 Saturation ABG O2 Content ABG Base Excess ABG Hemoglobin ABG Carboxyhemoglobin POC ABG HHb (Measured) ABG Methemoglobin ABG O2 Capacity Hgb O2 Saturation FiO2 Sodium Potassium Chloride Carbon Dioxide Anion Gap BUN Creatinine Est GFR ( Amer) Est GFR (Non-Af Amer) POC Glucose (mg/dL) 113 H Random Glucose Calcium Phosphorus Magnesium Total Bilirubin Direct Bilirubin AST ALT Alkaline Phosphatase NT-Pro-B Natriuret Pep Total Protein Albumin Globulin Albumin/Globulin Ratio 09/10/18 09/10/18 09/10/18 05:40 06:10 10:10 WBC RBC Hgb Hct MCV MCH MCHC RDW Plt Count MPV Neut % (Auto) Lymph % (Auto) [place] % (Auto) Eos % (Auto) Baso % (Auto) Lymph # (Auto) [place] # (Auto) Eos # (Auto) Baso # (Auto) Absolute Neuts (auto) APTT 68.2 H pCO2 48 H pO2 93.0 HCO3 31.9 H ABG pH 7.43 ABG Total CO2 33.4 H ABG O2 Saturation 98.5 H ABG O2 Content 19.2 ABG Base Excess 6.4 H ABG Hemoglobin 14.2 ABG Carboxyhemoglobin 1.8 H POC ABG HHb (Measured) 1.5 ABG Methemoglobin 1.0 ABG O2 Capacity 19.5 Hgb O2 Saturation 95.6 FiO2 60.0 Sodium 142 Potassium 4.5 Chloride 101 Carbon Dioxide 34 H Anion Gap 11 BUN 53 H Creatinine 1.0 Est GFR ( Amer) > 60 Est GFR (Non-Af Amer) 54 POC Glucose (mg/dL) Random Glucose 114 H Calcium 8.0 L Phosphorus 4.3 Magnesium 1.7 Total Bilirubin 0.5 Direct Bilirubin 0.5 H AST 22 ALT 22 Alkaline Phosphatase 69 NT-Pro-B Natriuret Pep 4690 H Total Protein 5.3 L Albumin 2.5 L Globulin 2.7 Albumin/Globulin Ratio 0.9 L 09/10/18 11:06 WBC RBC Hgb Hct MCV MCH MCHC RDW Plt Count MPV Neut % (Auto) Lymph % (Auto) [place] % (Auto) Eos % (Auto) Baso % (Auto) Lymph # (Auto) [place] # (Auto) Eos # (Auto) Baso # (Auto) Absolute Neuts (auto) APTT pCO2 pO2 HCO3 ABG pH ABG Total CO2 ABG O2 Saturation ABG O2 Content ABG Base Excess ABG Hemoglobin ABG Carboxyhemoglobin POC ABG HHb (Measured) ABG Methemoglobin ABG O2 Capacity Hgb O2 Saturation FiO2 Sodium Potassium Chloride Carbon Dioxide Anion Gap BUN Creatinine Est GFR ( Amer) Est GFR (Non-Af Amer) POC Glucose (mg/dL) 109 Random Glucose Calcium Phosphorus Magnesium Total Bilirubin Direct Bilirubin AST ALT Alkaline Phosphatase NT-Pro-B Natriuret Pep Total Protein Albumin Globulin Albumin/Globulin Ratio Radiology Impressions: Radiology Impressions Abdomen/Pelvis CT 09/08/18 23:16 IMPRESSION: No acute findings related to/ accounting for the clinical presentation. Additional benign and/or incidental findings described above. Concordant findings (preliminary report) provided by FRANK COREA. EKG/Cardiology Studies: Cardiology / EKG Studies 09/10/18 07:00 EKG [ELECTROCARDIOGRAM] DAILY Comment: Reason For Exam: AMI 09/11/18 07:00 EKG [ELECTROCARDIOGRAM] DAILY Comment: Reason For Exam: AMI Critical Care Progress Note - Nutrition Nutrition: Nutrition Category Date Time Status Liquid Diet [DIET] Diets 09/10/18 Breakfast Ordered Attending/Attestation - Attestation I have personally seen and examined this patient.: Yes I have fully participated in the care of the patient.: Yes I have reviewed all pertinent clinical information: Yes Notes (Text): 09/10/18 18:[address] Brink note
[2018-09-10 07:02] LABS: B-TYPE NATRIURETIC PEPTIDE 4690 pg/mL (0-450)
[2018-09-10 07:16] LABS: ALB/GLOB RATIO 0.9 (1.1-1.8); ALBUMIN 2.5 g/dL (3.0-4.8); ALT/SGPT 22 U/L (7-56); AST/SGOT 22 U/L (14-36); BILIRUBIN,DIRECT 0.5 mg/dL (0.0-0.4); BLOOD UREA NITROGEN 53 mg/dL (7-21); GFR NON-AFRICAN AMERICAN 54
[2018-09-10] MEDS: Ammonium Lactate 12% Cream (140 g) TOP SCH (09:01)
[2018-09-10] MEDS: VITS A AND D/WHITE PET/LANOLIN 113.4 APPLIC/113.4 G TUBE TP SCH (09:01)
[2018-09-10] MEDS: Meropenem IV 1 gm in NS 1 GM/50 ML BAG IVPB SCH ×2 (09:02→22:55)
[2018-09-10] MEDS: Nystatin 100,000 Units/gm Cream(15 gm) TOP SCH ×3 (09:03→18:35)
[2018-09-10] MEDS: Vancomycin 1gm in NS 250ml 1 GM/250 ML BAG IVPB SCH (09:04)
[2018-09-10] MEDS: MethylPREDNISolone 40 mg Vial IVP SCH ×2 (09:04→20:04)
--- NOTE | 2018-09-10 09:10 | PN ---
DATE: 09/10/2018 CARDIOLOGY FOLLOWUP SUBJECTIVE: The patient is awake, still on a ventilator. PHYSICAL EXAMINATION: VITAL SIGNS: Blood pressure is 124/60, heart rate in the 80s, normal sinus rhythm. NECK: Negative JVD. LUNGS: Decreased breath sounds. HEART: S1, S2. EXTREMITIES: Without change. LABORATORIES: Hemoglobin is 14. Chemistries: BUN and creatinine are 53/1. ProBNP is down from 13,000-4000. Echocardiogram reveals an ejection fraction of 40% with dilated right ventricle. IMPRESSION: 1. Status post pulmonary embolism. 2. Respiratory failure. 3. Cardiomyopathy. 4. No documented pulmonary hypertension. 5. Obesity. PLAN: Given these findings, the patient has improved. We should be able to extubate the patient today. Nick Rowley MD
--- NOTE | 2018-09-10 09:27 | CARD ---
APPROVED REPORT Date of service: 09/10/2018 EKG Measurement Heart [id number] <Conclusion> Normal sinus rhythm RSR' or QR pattern in V1 suggests right ventricular conduction delay T wave abnormality, consider anterolateral ischemia Abnormal ECG
--- NOTE | 2018-09-10 10:34 | CP.PCM.CON ---
History of Present Illness - History of Present Illness History of Present Illness: General Surgery consult note for Dr. Norwood Patient is a 73 yr old female with PMH who was admitted to [facility] ICU for . Surgery was consulted d/t cholelithiasis found on CT and US. Patient was recently extubated in ICU and is now on Bipap. Patient denies any symptoms of abdominal pain, f/c, n/v, stool changes or pain radiating to her back. She additionally denies HAAS, and CP. PMH: copd psh:denies Social: smoker, denies ETOh and illicit drugs, lives alone all: nkda Review of Systems - Review of Systems All systems: reviewed and no additional remarkable complaints except (as per HPI) Past Patient History - Past Social History Smoking Status: Current Some Days Smoker - CARDIAC Hx Cardiac Disorders: Yes - PULMONARY Hx Respiratory Disorders: Yes Hx Emphysema: Yes - NEUROLOGICAL Hx Neurological Disorder: Yes Other/Comment: feet cold totouch - HEENT Hx HEENT Problems: No - RENAL Hx Chronic Kidney Disease: No - ENDOCRINE/METABOLIC Hx Endocrine Disorders: No - HEMATOLOGICAL/ONCOLOGICAL Hx Blood Disorders: No - INTEGUMENTARY Hx Dermatological Problems: Yes Other/Comment: red skin to chest abd ble and feet, fungal rash to under b/l breasts, pubic area, under abd folds, b/l groin, back, buttocks, sacrum, hips, hard dry heels to feet, dry skin feet - MUSCULOSKELETAL/RHEUMATOLOGICAL Hx Falls: No - GASTROINTESTINAL Hx Gastrointestinal Disorders: Yes (appetite changes, obese) - GENITOURINARY/GYNECOLOGICAL Hx Genitourinary Disorders: Yes Hx Incontinence: Yes - PSYCHIATRIC Hx Depression: No Hx Emotional Abuse: No Hx Physical Abuse: No Hx Substance Use: No - SURGICAL HISTORY Hx Surgeries: No Meds Allergies/Adverse Reactions: Allergies Allergy/AdvReac Type Severity Reaction Status Date / Time No Known Allergies Allergy Verified 09/08/18 11:11 - Medications Medications: Current Medications Acetaminophen (Tylenol 325mg Tab) 650 mg PO Q6 PRN PRN Reason: TEMP>=99.5F Acetaminophen (Tylenol 650 Mg Supp) 650 mg RC Q6H PRN PRN Reason: TEMP>=99.5F Allopurinol (Zyloprim) 100 mg PO DAILY [facility] Last Admin: 09/09/18 17:39 Dose: Not Given Dextrose (Dextrose 50% Inj) 0 ml IV STAT PRN; Protocol PRN Reason: Hypoglycemia Protocol Furosemide (Lasix) 40 mg IVP Q12 [facility] Last Admin: 09/10/18 09:02 Dose: 40 mg Propofol (Diprivan) 1,000 mg in 100 mls @ 3.266 mls/hr IV .Q24H PRN; Protocol PRN Reason: TITRATE PER MD ORDER Last Titration: 09/09/18 08:00 Dose: 0 mcg/kg/min, 0 mls/hr Doxycycline Hyclate 100 mg/ (Sodium Chloride) 100 mls @ 100 mls/hr IVPB Q12 [facility]; Protocol Last Admin: 09/10/18 09:05 Dose: 100 mls/hr Heparin Sodium/Sodium Chloride (Heparin 59281 Units/250ml 1/2 Normal Saline) 25,000 units in 250 mls @ 19.922 mls/hr IV .[id number] PRN; Protocol PRN Reason: ADJUST RATE PER PROTOCOL Last Admin: 09/10/18 06:33 Dose: 10 units/kg/hr, 11.068 mls/hr Vancomycin HCl (Vancomycin 1gm) 1 gm in 250 mls @ 167 mls/hr IVPB DAILY [facility]; Protocol Last Admin: 09/10/18 09:04 Dose: 167 mls/hr Meropenem (Merrem Iv 1 Gm Premix) 1 gm in 50 mls @ 100 mls/hr IVPB Q12 [facility]; Protocol Stop: 09/17/18 22:01 Last Admin: 09/10/18 09:02 Dose: 100 mls/hr Dextrose (Dextrose 5% In Water 1000 Ml) 1,000 mls @ 0 mls/hr IV .Q0M PRN; Protocol PRN Reason: Hypoglycemia Protocol Dobutamine HCl/Dextrose (Dobutamine/Dextrose 5% 500mg/250ml) 500 mg in 250 mls @ 8.301 mls/hr IV .Q24H PRN; Protocol PRN Reason: TITRATE PER PROTOCOL Last Admin: 09/09/18 17:42 Dose: 2.5 mcg/kg/min, 8.301 mls/hr Insulin Human Lispro (Humalog High) 0 units SC Q6H [facility]; Protocol Last Admin: 09/10/18 05:34 Dose: Not Given Lactic Acid (Lac-Hydrin 12% Cream (140 G)) 0 ea TOP DAILY [facility] Last Admin: 09/10/18 09:01 Dose: 1 applic Levalbuterol HCl (Xopenex) 0.63 mg IH [id number] [facility] Last Admin: 09/10/18 06:59 Dose: 0.63 mg Methylprednisolone (Solu-Medrol) 20 mg IVP Q12H [facility] Last Admin: 09/10/18 09:04 Dose: 20 mg Nicotine (Nicoderm Cq) 1 patch TD DAILY [facility] Last Admin: 09/10/18 09:03 Dose: 1 patch Nystatin (Nystop Topical Powder) 0 gm TOP Q6 [facility] Last Admin: 09/10/18 05:08 Dose: 2 pdr Nystatin (Mycostatin Cream) 0 ea TOP TID [facility] Last Admin: 09/10/18 09:03 Dose: 1 unit Ondansetron HCl (Zofran Inj) 4 mg IVP Q4H PRN PRN Reason: Nausea/Vomiting Pantoprazole Sodium (Protonix Inj) 40 mg IVP Q12 [facility] Last Admin: 09/10/18 09:04 Dose: 40 mg Physical Exam - Constitutional Appears: Well, Non-toxic, No Acute Distress - Head Exam Head Exam: ATRAUMATIC, NORMOCEPHALIC - Eye Exam Eye Exam: EOMI - Respiratory Exam Respiratory Exam: absent: Respiratory Distress Additional comments: on Bipap - Cardiovascular Exam Cardiovascular Exam: REGULAR RHYTHM - GI/Abdominal Exam GI & Abdominal Exam: Soft. absent: Distended, Guarding, Tenderness - Neurological Exam Neurological exam: Alert, Oriented x3 - Psychiatric Exam Psychiatric exam: Normal Affect, Normal Mood - Skin Skin Exam: Dry, Intact, Normal Color, Warm Results - Vital Signs Recent Vital Signs: Last Vital Signs Temp 98.4 F 09/10/18 07:00 Pulse 86 09/10/18 09:09 Resp 28 H 09/10/18 09:09 BP 122/59 L 09/10/18 09:02 Pulse Ox 94 L 09/10/18 09:00 - Labs Result Diagrams: 09/10/18 05:40 09/10/18 05:40 Labs: Laboratory Results - last 24 hr 09/08/18 09/08/18 09/08/18 19:40 23:15 23:30 WBC RBC Hgb Hct MCV MCH MCHC RDW Plt Count MPV Neut % (Auto) Lymph % (Auto) [place] % (Auto) Eos % (Auto) Baso % (Auto) Lymph # (Auto) [place] # (Auto) Eos # (Auto) Baso # (Auto) Absolute Neuts (auto) APTT pCO2 pO2 HCO3 ABG pH ABG Total CO2 ABG O2 Saturation ABG O2 Content ABG Base Excess ABG Hemoglobin ABG Carboxyhemoglobin POC ABG HHb (Measured) ABG Methemoglobin ABG O2 Capacity Hgb O2 Saturation FiO2 Sodium Potassium Chloride Carbon Dioxide Anion Gap BUN Creatinine Est GFR ( Amer) Est GFR (Non-Af Amer) POC Glucose (mg/dL) Random Glucose Calcium Phosphorus Magnesium Total Bilirubin Direct Bilirubin AST ALT Alkaline Phosphatase C-React Prot High Sens > 15.00 H NT-Pro-B Natriuret Pep Total Protein Albumin Globulin Albumin/Globulin Ratio 25-OH Vitamin D Total Procalcitonin < 0.05 L Ur L.pneumophila Ag Negative 09/08/18 09/09/18 09/09/18 23:30 11:21 13:10 WBC RBC Hgb Hct MCV MCH MCHC RDW Plt Count MPV Neut % (Auto) Lymph % (Auto) [place] % (Auto) Eos % (Auto) Baso % (Auto) Lymph # (Auto) [place] # (Auto) Eos # (Auto) Baso # (Auto) Absolute Neuts (auto) APTT 73.2 H pCO2 pO2 HCO3 ABG pH ABG Total CO2 ABG O2 Saturation ABG O2 Content ABG Base Excess ABG Hemoglobin ABG Carboxyhemoglobin POC ABG HHb (Measured) ABG Methemoglobin ABG O2 Capacity Hgb O2 Saturation FiO2 Sodium Potassium Chloride Carbon Dioxide Anion Gap BUN Creatinine Est GFR ( Amer) Est GFR (Non-Af Amer) POC Glucose (mg/dL) 118 H Random Glucose Calcium Phosphorus Magnesium Total Bilirubin Direct Bilirubin AST ALT Alkaline Phosphatase C-React Prot High Sens NT-Pro-B Natriuret Pep Total Protein Albumin Globulin Albumin/Globulin Ratio 25-OH Vitamin D Total < 12.8 L Procalcitonin Ur L.pneumophila Ag 09/09/18 09/09/18 09/09/18 17:29 19:20 22:43 WBC RBC Hgb Hct MCV MCH MCHC RDW Plt Count MPV Neut % (Auto) Lymph % (Auto) [place] % (Auto) Eos % (Auto) Baso % (Auto) Lymph # (Auto) [place] # (Auto) Eos # (Auto) Baso # (Auto) Absolute Neuts (auto) APTT 104.2 H* pCO2 pO2 HCO3 ABG pH ABG Total CO2 ABG O2 Saturation ABG O2 Content ABG Base Excess ABG Hemoglobin ABG Carboxyhemoglobin POC ABG HHb (Measured) ABG Methemoglobin ABG O2 Capacity Hgb O2 Saturation FiO2 Sodium Potassium Chloride Carbon Dioxide Anion Gap BUN Creatinine Est GFR ( Amer) Est GFR (Non-Af Amer) POC Glucose (mg/dL) 111 H 93 Random Glucose Calcium Phosphorus Magnesium Total Bilirubin Direct Bilirubin AST ALT Alkaline Phosphatase C-React Prot High Sens NT-Pro-B Natriuret Pep Total Protein Albumin Globulin Albumin/Globulin Ratio 25-OH Vitamin D Total Procalcitonin Ur L.pneumophila Ag 09/10/18 09/10/18 09/10/18 02:00 05:26 05:40 WBC 10.4 RBC 4.88 Hgb 14.4 Hct 46.4 MCV 95.1 MCH 29.5 MCHC 31.0 RDW 14.8 H Plt Count 215 MPV 10.2 Neut % (Auto) 89.0 H Lymph % (Auto) 7.2 L Austin % (Auto) 3.7 Eos % (Auto) 0.0 L Baso % (Auto) 0.1 Lymph # (Auto) 0.8 L [place] # (Auto) 0.4 Eos # (Auto) 0.0 Baso # (Auto) 0.01 Absolute Neuts (auto) 9.24 H APTT 76.2 H pCO2 pO2 HCO3 ABG pH ABG Total CO2 ABG O2 Saturation ABG O2 Content ABG Base Excess ABG Hemoglobin ABG Carboxyhemoglobin POC ABG HHb (Measured) ABG Methemoglobin ABG O2 Capacity Hgb O2 Saturation FiO2 Sodium Potassium Chloride Carbon Dioxide Anion Gap BUN Creatinine Est GFR ( Amer) Est GFR (Non-Af Amer) POC Glucose (mg/dL) 113 H Random Glucose Calcium Phosphorus Magnesium Total Bilirubin Direct Bilirubin AST ALT Alkaline Phosphatase C-React Prot High Sens NT-Pro-B Natriuret Pep Total Protein Albumin Globulin Albumin/Globulin Ratio 25-OH Vitamin D Total Procalcitonin Ur L.pneumophila Ag 09/10/18 09/10/18 05:40 06:10 WBC RBC Hgb Hct MCV MCH MCHC RDW Plt Count MPV Neut % (Auto) Lymph % (Auto) [place] % (Auto) Eos % (Auto) Baso % (Auto) Lymph # (Auto) [place] # (Auto) Eos # (Auto) Baso # (Auto) Absolute Neuts (auto) APTT pCO2 48 H pO2 93.0 HCO3 31.9 H ABG pH 7.43 ABG Total CO2 33.4 H ABG O2 Saturation 98.5 H ABG O2 Content 19.2 ABG Base Excess 6.4 H ABG Hemoglobin 14.2 ABG Carboxyhemoglobin 1.8 H POC ABG HHb (Measured) 1.5 ABG Methemoglobin 1.0 ABG O2 Capacity 19.5 Hgb O2 Saturation 95.6 FiO2 60.0 Sodium 142 Potassium 4.5 Chloride 101 Carbon Dioxide 34 H Anion Gap 11 BUN 53 H Creatinine 1.0 Est GFR ( Amer) > 60 Est GFR (Non-Af Amer) 54 POC Glucose (mg/dL) Random Glucose 114 H Calcium 8.0 L Phosphorus 4.3 Magnesium 1.7 Total Bilirubin 0.5 Direct Bilirubin 0.5 H AST 22 ALT 22 Alkaline Phosphatase 69 C-React Prot High Sens NT-Pro-B Natriuret Pep 4690 H Total Protein 5.3 L Albumin 2.5 L Globulin 2.7 Albumin/Globulin Ratio 0.9 L 25-OH Vitamin D Total Procalcitonin Ur L.pneumophila Ag Assessment & Plan - Assessment and Plan (Free Text) Assessment: 73 yr old female with incidental finding of cholelithiasis on CT scan with no evidence of biliary obstruction, wall thickening or pericholecystic fluid Plan: - pt asymptomatic, no leukocytosis or fevers - CT annd US with no evidence of cholecystitis -will follow up HIDA - no acute surgical intervention needed at this time - Date & Time Date: 09/10/18 Time: 09:45
--- NOTE | 2018-09-10 12:36 | PN ---
DATE: 09/10/2018 SUBJECTIVE: The patient seen and examined at bedside. She is successfully extubated to BiPap, 14/ with FIO2 of 75%. She is alert, awake and oriented x3. Very comfortable. She is breathing about 20 times per minute and her tidal volume varies between 350-400. Her oxygen saturation is 95% on that setting. Heart rate 80, blood pressure 123/70. She is on 2.5 mcg/kg per minute of dobutamine. She is on heparin drip. OBJECTIVE: HEENT: Head and neck atraumatic. LUNGS: Clear to auscultation bilaterally. HEART: Regular rate and rhythm. S1 and S2 distant. ABDOMEN: Soft, nontender, nondistended. MUSCULOSKELETAL: Trace to 1+ bilateral pedal and ankle edema. NEURO: The patient moves all extremities spontaneously. SKIN: Moist. PSYCH: The patient is alert, awake and oriented x3. LABORATORY DATA: Sodium 142, potassium 4.5, chloride 101, carbon dioxide 34, BUN 53, creatinine 1, glucose 114, AST 22, ALT 22, total bilirubin 0.5. WBC 10.4, hemoglobin 14.4, platelet count 215. MEDICATIONS: Tylenol p.r.n., allopurinol, dobutamine, doxycycline, Lasix, heparin drip, regular insulin sliding scale high protocol, meropenem, Solu-Medrol 20 mg IV every 12 hours, nicotine patch, Zofran p.r.n., Protonix, vancomycin. ASSESSMENT AND PLAN: This is 73-year-old lady who initially presented with hypoxemic respiratory failure secondary to likely combined etiology including pulmonary embolism, left ventricular systolic dysfunction and right ventricular systolic dysfunction secondary to underlying chronic obstructive pulmonary disease. At present time, the patient was extubated and on bilevel positive airway pressure. FIO2 substantially decreased from initial 100% requirement. She is on therapeutic anticoagulation, broad-spectrum antibiotics, diuretics for conservative fluid management. Dobutamine was started for biventricular ionotropic support. If tolerated, we will go up to 5 mcg/kg per minute dose. I will start the patient on Pulmicort and we will continue with bronchodilators. The patient currently is alert, awake and oriented, very comfortable, protecting airways. She does not have any shortness of breath. She is making good urine and her creatinine plateaued at 1. We will try to avoid hypoglycemia and hyperchloremia, but we will maintain mean arterial pressure more than 65. We will maintain blood glucose within 140-180 range according to NICE-SUGAR trial. We will keep her n.p.o. for now until she is weaned off of bilevel positive airway pressure. We will continue with conservative fluid management. Once dobutamine off, we will start angiotensin-converting enzyme inhibitors for afterload reduction and beta-blockers. ccm time 40 min Byron Brink MD MTDKenji
--- NOTE | 2018-09-10 14:13 | CT ---
Date of service: 09/09/2018 PROCEDURE: CT Abdomen and Pelvis without intravenous contrast HISTORY: Respiratory failure, CHF and sepsis. COMPARISON: 09/09/2018 abdominal ultrasound. TECHNIQUE: Unenhanced. Neither IV nor oral contrast administered Radiation dose: Total exam DLP = 953.61 mGy-cm. This CT exam was performed using one or more of the following dose reduction techniques: Automated exposure control, adjustment of the mA and/or kV according to patient size, and/or use of iterative reconstruction technique. FINDINGS: LOWER THORAX: Trace bilateral pleural effusions. Similar findings identified on CT of the thorax performed 09/08/2018. LIVER: Unremarkable. No gross lesion or ductal dilatation. GALLBLADDER AND BILE DUCTS: Cholelithiasis without CT evidence of acute cholecystitis. PANCREAS: Unremarkable. No gross lesion or ductal dilatation. SPLEEN: Unremarkable. ADRENALS: Unremarkable. No mass. KIDNEYS AND URETERS: Right kidney: Atrophic. Left kidney: Unremarkable. VASCULATURE: Unremarkable. No aortic aneurysm. Atherosclerotic calcification and mural plaque present. Findings are seen throughout the aorta which is non aneurysmal. BOWEL: Constipation without fecal impaction or obstruction. APPENDIX: No abnormalities to suggest acute appendicitis. No right lower quadrant inflammatory processes identified. PERITONEUM: Trace free fluid identified in the pelvis/cul de sac.No free air. LYMPH NODES: Unremarkable. No enlarged lymph nodes. BLADDER: Alonzo catheter identified in a decompressed urinary bladder. REPRODUCTIVE: Unremarkable. BONES: No acute fracture. OTHER FINDINGS: None. IMPRESSION: No acute findings related to/ accounting for the clinical presentation. Additional benign and/or incidental findings described above. Concordant findings (preliminary report) provided by [facility].
--- NOTE | 2018-09-10 15:19 | CP.PCM.PN ---
Subjective - Date & Time of Evaluation Date of Evaluation: 09/10/18 Time of Evaluation: 15:17 - Subjective Subjective: Nephrology Consultation Note: Assessment: critical likely CKD 3 with UA 30 prot. renal imaging atrophy scarring Rt kidney and eGFR in 50s COPD/sys CHF exacerbation with PNA, acute PE, DM and sepsis morbid obesity acute on chronic hypercapnic respi failure with renal compensation active smoker hyperkalemia vit d def Plan No acute need for renal replacement therapy at this time. Hypertension control with meds as ordered. Maintain hemodynamics stable. Avoid hypotension. Patient not on ACEI or ARB at present, consider to add either soon as tolerated by BP Monitor Input/Output, daily weights and renal function with basic metabolic panel continue with loop diuretics added weekly vit D cardiology, pulmonary following Check urine spot protein/creatinine, albumin/creatinine ratio Dose meds/antibiotics for GFR >50 Glycemic control. once stable and acute process resolved, pt will need weight loss, smoking cessation, lifestyle modifications Further work up/management as per primary team Thanks for allowing me to participate in care of your patient. Will follow patient with you. Please call if any Qs. had d/w team Dr David Harrison Office: [phone] Chief Complaint; unable Reason for consult: Acute Kidney Injury HPI: Pt is a 73 F with hx of heavy smoking, no medical follow ups presented with complaints of SOB and respi distress intubated and admitted to ICU. foudn to have CHF exacerbation with PNA, PE, DM and sepsis renal consult for abnormal imaging and renal fxn eval Denies OTC/herbal meds or NSAIDs Noted recent iodinated contrast exposure as CTA. No obvious episodes of low BP. ROS: pt extubated but on BiPAP. feels better. Physical Examination: General Appearance: better appearing on BiPAP Vitals reviewed and noted as below Head; Atraumatic, normocephalic ENT: deferred EYES: Pupils are equal, round and reactive to light accommodation. Eye muscles and extraocular movement intact. Sclera is anicteric. Neck; supple no lymphadenopathy, no thyromegaly or bruit Lungs: Normal respiratory rate/effort. Breath sounds bilateral reduced at bases Heart: Normal rate. s1s2 normal. No rub or gallop. Extremities: 1-2+ edema. No varicose veins Neurological: Patient is awake alert follows commands Skin: Warm and dry. Normal turgor. No rash. Palpitation: Normal elasticity for age Abdomen: Abdomen is soft. Bowel sounds +. There is no abdominal tenderness, no guarding/rigidity no organomegaly Psych: limited insight. MSK: no joint tenderness or swelling. Digits and nails normal, no deformity : kidney or bladder not palpable. smith farrell Labs/imaging reviewed. Past medical history, past surgical history, family history, social history, allergy reviewed and noted as below Family hx: no hx of CKD. Rest non-contributory UA 30 prot. renal imaging atrophy scarring Rt kidney Objective - Vital Signs/Intake and Output Vital Signs (last 24 hours): Temp Pulse Resp BP Pulse Ox 98.2 F 74 25 H 100/60 85 L 09/10/18 12:00 09/10/18 13:01 09/10/18 12:00 09/10/18 12:16 09/10/18 12:16 Intake and Output: 09/10/18 09/10/18 06:59 18:59 Intake Total 491 Output Total 1375 Balance -884 - Medications Medications: Current Medications Acetaminophen (Tylenol 325mg Tab) 650 mg PO Q6 PRN PRN Reason: TEMP>=99.5F Acetaminophen (Tylenol 650 Mg Supp) 650 mg RC Q6H PRN PRN Reason: TEMP>=99.5F Allopurinol (Zyloprim) 100 mg PO DAILY [facility]S [facility]CLUDE 234 BEDS AT THE [facility] Last Admin: 09/09/18 17:39 Dose: Not Given Dextrose (Dextrose 50% Inj) 0 ml IV STAT PRN; Protocol PRN Reason: Hypoglycemia Protocol Doxycycline Hyclate (Doryx) 100 mg PO Q12 SAB[facility]HA; Protocol Ergocalciferol (Drisdol 50,000 Intl Units Cap) 1 cap PO Q7D [facility] Furosemide (Lasix) 40 mg IVP Q12 [facility] Last Admin: 09/10/18 09:02 Dose: 40 mg Propofol (Diprivan) 1,000 mg in 100 mls @ 3.266 mls/hr IV .Q24H PRN; Protocol PRN Reason: TITRATE PER MD ORDER Last Titration: 09/09/18 08:00 Dose: 0 mcg/kg/min, 0 mls/hr Heparin Sodium/Sodium Chloride (Heparin 85394 Units/250ml 1/2 Normal Saline) 25,000 units in 250 mls @ 19.922 mls/hr IV .[id number] PRN; Protocol PRN Reason: ADJUST RATE PER PROTOCOL Last Admin: 09/10/18 06:33 Dose: 10 units/kg/hr, 11.068 mls/hr Meropenem (Merrem Iv 1 Gm Premix) 1 gm in 50 mls @ 100 mls/hr IVPB Q12 SABIHA; Protocol Stop: 09/17/18 22:01 Last Admin: 09/10/18 09:02 Dose: 100 mls/hr Dextrose (Dextrose 5% In Water 1000 Ml) 1,000 mls @ 0 mls/hr IV .Q0M PRN; Protocol PRN Reason: Hypoglycemia Protocol Dobutamine HCl/Dextrose (Dobutamine/Dextrose 5% 500mg/250ml) 500 mg in 250 mls @ 8.301 mls/hr IV .Q24H PRN; Protocol PRN Reason: TITRATE PER PROTOCOL Last Admin: 09/09/18 17:42 Dose: 2.5 mcg/kg/min, 8.301 mls/hr Insulin Human Lispro (Humalog High) 0 units SC Q6H SABIHA; Protocol Last Admin: 09/10/18 11:30 Dose: Not Given Lactic Acid (Lac-Hydrin 12% Cream (140 G)) 0 ea TOP DAILY COUNTS INCLUDE 234 BEDS AT THE [facility] Last Admin: 09/10/18 09:01 Dose: 1 applic Levalbuterol HCl (Xopenex) 0.63 mg IH [id number] [facility] Last Admin: 09/10/18 13:05 Dose: 0.63 mg Methylprednisolone (Solu-Medrol) 20 mg IVP Q12H [facility] Last Admin: 09/10/18 09:04 Dose: 20 mg Nicotine (Nicoderm Cq) 1 patch TD DAILY COUNTS INCLUDE 234 BEDS AT THE [facility] Last Admin: 09/10/18 09:03 Dose: 1 patch Nystatin (Nystop Topical Powder) 0 gm TOP Q6 [facility] Last Admin: 09/10/18 05:08 Dose: 2 pdr Nystatin (Mycostatin Cream) 0 ea TOP TID COUNTS INCLUDE 234 BEDS AT THE [facility] Last Admin: 09/10/18 09:03 Dose: 1 unit Ondansetron HCl (Zofran Inj) 4 mg IVP Q4H PRN PRN Reason: Nausea/Vomiting Pantoprazole Sodium (Protonix Inj) 40 mg IVP Q12 [facility]HA Last Admin: 09/10/18 09:04 Dose: 40 mg - Labs Labs: 09/10/18 05:40 09/10/18 05:40 PT 15.7 SECONDS (9.4-12.5) H 09/09/18 06:47 INR 1.39 09/09/18 06:47 APTT 68.2 Seconds (26.9-38.3) H 09/10/18 10:10
--- NOTE | 2018-09-10 16:00 | CP.PCM.PN ---
<Ketan Shrestha - Last Filed: 09/10/18 15:56> Subjective - Date & Time of Evaluation Date of Evaluation: 09/10/18 Time of Evaluation: 09:20 - Subjective Subjective: Ketan Shrestha D.O. PGY-3, Internal Medicine Resident, Infectious Disease Progress Note 73 year old female with a PMH of COPD and tobacco abuse who presented to [facility] on 09/08/18 after she was found by her family members laying in her couch for about 3 days. Infectious disease consultation was requested for possible UTI vs BL pnemonia. Patient was seen and examined at bedside. Extubated earlier. Voice still somewhat raspy, uncomfortable to talk but happy to be extubated. Objective - Vital Signs/Intake and Output Vital Signs (last 24 hours): Temp Pulse Resp BP Pulse Ox 98.2 F 74 25 H 100/60 85 L 09/10/18 12:00 09/10/18 13:01 09/10/18 12:00 09/10/18 12:16 09/10/18 12:16 Intake and Output: 09/10/18 09/10/18 06:59 18:59 Intake Total 491 Output Total 1375 Balance -884 - Medications Medications: Current Medications Acetaminophen (Tylenol 325mg Tab) 650 mg PO Q6 PRN PRN Reason: TEMP>=99.5F Acetaminophen (Tylenol 650 Mg Supp) 650 mg RC Q6H PRN PRN Reason: TEMP>=99.5F Allopurinol (Zyloprim) 100 mg PO DAILY [facility] Last Admin: 09/09/18 17:39 Dose: Not Given Dextrose (Dextrose 50% Inj) 0 ml IV STAT PRN; Protocol PRN Reason: Hypoglycemia Protocol Doxycycline Hyclate (Doryx) 100 mg PO Q12 [facility]; Protocol Ergocalciferol (Drisdol 50,000 Intl Units Cap) 1 cap PO Q7D [facility] Furosemide (Lasix) 40 mg IVP Q12 [facility] Last Admin: 09/10/18 09:02 Dose: 40 mg Propofol (Diprivan) 1,000 mg in 100 mls @ 3.266 mls/hr IV .Q24H PRN; Protocol PRN Reason: TITRATE PER MD ORDER Last Titration: 09/09/18 08:00 Dose: 0 mcg/kg/min, 0 mls/hr Heparin Sodium/Sodium Chloride (Heparin 15524 Units/250ml 1/2 Normal Saline) 25,000 units in 250 mls @ 19.922 mls/hr IV .[id number] PRN; Protocol PRN Reason: ADJUST RATE PER PROTOCOL Last Admin: 09/10/18 06:33 Dose: 10 units/kg/hr, 11.068 mls/hr Meropenem (Merrem Iv 1 Gm Premix) 1 gm in 50 mls @ 100 mls/hr IVPB Q12 [facility]; Protocol Stop: 09/17/18 22:01 Last Admin: 09/10/18 09:02 Dose: 100 mls/hr Dextrose (Dextrose 5% In Water 1000 Ml) 1,000 mls @ 0 mls/hr IV .Q0M PRN; Protocol PRN Reason: Hypoglycemia Protocol Dobutamine HCl/Dextrose (Dobutamine/Dextrose 5% 500mg/250ml) 500 mg in 250 mls @ 8.301 mls/hr IV .Q24H PRN; Protocol PRN Reason: TITRATE PER PROTOCOL Last Admin: 09/09/18 17:42 Dose: 2.5 mcg/kg/min, 8.301 mls/hr Insulin Human Lispro (Humalog High) 0 units SC Q6H [facility]; Protocol Last Admin: 09/10/18 11:30 Dose: Not Given Lactic Acid (Lac-Hydrin 12% Cream (140 G)) 0 ea TOP DAILY [facility] Last Admin: 09/10/18 09:01 Dose: 1 applic Levalbuterol HCl (Xopenex) 0.63 mg IH [id number] [facility] Last Admin: 09/10/18 13:05 Dose: 0.63 mg Methylprednisolone (Solu-Medrol) 20 mg IVP Q12H [facility] Last Admin: 09/10/18 09:04 Dose: 20 mg Nicotine (Nicoderm Cq) 1 patch TD DAILY [facility] Last Admin: 09/10/18 09:03 Dose: 1 patch Nystatin (Nystop Topical Powder) 0 gm TOP Q6 [facility] Last Admin: 09/10/18 05:08 Dose: 2 pdr Nystatin (Mycostatin Cream) 0 ea TOP TID [facility] Last Admin: 09/10/18 09:03 Dose: 1 unit Ondansetron HCl (Zofran Inj) 4 mg IVP Q4H PRN PRN Reason: Nausea/Vomiting Pantoprazole Sodium (Protonix Inj) 40 mg IVP Q12 [facility] Last Admin: 09/10/18 09:04 Dose: 40 mg - Labs Labs: 09/10/18 05:40 09/10/18 05:40 PT 15.7 SECONDS (9.4-12.5) H 09/09/18 06:47 INR 1.39 09/09/18 06:47 APTT 68.2 Seconds (26.9-38.3) H 09/10/18 10:10 - Constitutional Appears: Chronically Ill, obese - Head Exam Head Exam: ATRAUMATIC, NORMOCEPHALIC - Eye Exam Eye Exam: EOMI. absent: Scleral icterus - ENT Exam ENT Exam: Mucous Membranes Moist - Neck Exam Additional comments: obese, soft - Respiratory Exam Respiratory Exam: Rhonchi - Cardiovascular Exam Cardiovascular Exam: RRR, +S1, +S2 - GI/Abdominal Exam GI & Abdominal Exam: Soft, erythematous lesions along skin folds now with talc - Extremities Exam Additional comments: chronic stasis changes of BLE, possible cellulitic changes to right LE that are slowly improving - Neurological Exam Additional comments: Awake, Alert - Skin Skin Exam: Dry, Warm, erythema along skin folds Assessment and Plan - Assessment and Plan (Free Text) Assessment: 73 year old female with a PMH of COPD and tobacco abuse who presented to [facility] on 09/08/18 after she was found by her family members laying in her couch for about 3 days. Infectious disease consultation was requested for possible UTI vs BL pnemonia. Plan: Severe sepsis Acute respiratory failure requiring intubation, now exubated CAP Pleural effusions Procalcitonin negative Legionella negative Strep ag pending D/C van Continue doxy but switched from IV to PO day 3 Continue merrem day 3 Blood Cultures negative 2/2 day 2 Urine cultures negative MRSA nares negative We will follow with you Patient was seen and examined and case to be discussed with attending physician. Thank you for the pleasure of participating in the care of this interesting patient. <Agapito Rojo - Last Filed: 09/10/18 21:32> Objective - Vital Signs/Intake and Output Vital Signs (last 24 hours): Temp Pulse Resp BP Pulse Ox 98.1 F 80 27 H 113/57 L 90 L 09/10/18 16:00 09/10/18 18:45 09/10/18 18:45 09/10/18 18:45 09/10/18 18:45 Intake and Output: 09/10/18 09/11/18 18:59 06:59 Intake Total 1113 Output Total 1700 Balance -587 - Medications Medications: Current Medications Acetaminophen (Tylenol 325mg Tab) 650 mg PO Q6 PRN PRN Reason: TEMP>=99.5F Acetaminophen (Tylenol 650 Mg Supp) 650 mg RC Q6H PRN PRN Reason: TEMP>=99.5F Allopurinol (Zyloprim) 100 mg PO DAILY [facility] Last Admin: 09/10/18 18:25 Dose: 100 mg Dextrose (Dextrose 50% Inj) 0 ml IV STAT PRN; Protocol PRN Reason: Hypoglycemia Protocol Doxycycline Hyclate (Doryx) 100 mg PO Q12 [facility]; Protocol Ergocalciferol (Drisdol 50,000 Intl Units Cap) 1 cap PO Q7D [facility] Last Admin: 09/10/18 18:32 Dose: 1 cap Furosemide (Lasix) 40 mg IVP Q12 [facility] Last Admin: 09/10/18 09:02 Dose: 40 mg Heparin Sodium/Sodium Chloride (Heparin 58997 Units/250ml 1/2 Normal Saline) 25,000 units in 250 mls @ 19.922 mls/hr IV .[id number] PRN; Protocol PRN Reason: ADJUST RATE PER PROTOCOL Last Admin: 09/10/18 06:33 Dose: 10 units/kg/hr, 11.068 mls/hr Meropenem (Merrem Iv 1 Gm Premix) 1 gm in 50 mls @ 100 mls/hr IVPB Q12 [facility]; Protocol Stop: 09/17/18 22:01 Last Admin: 09/10/18 09:02 Dose: 100 mls/hr Dextrose (Dextrose 5% In Water 1000 Ml) 1,000 mls @ 0 mls/hr IV .Q0M PRN; Protocol PRN Reason: Hypoglycemia Protocol Dobutamine HCl/Dextrose (Dobutamine/Dextrose 5% 500mg/250ml) 500 mg in 250 mls @ 8.301 mls/hr IV .Q24H PRN; Protocol PRN Reason: TITRATE PER PROTOCOL Last Admin: 09/09/18 17:42 Dose: 2.5 mcg/kg/min, 8.301 mls/hr Insulin Human Lispro (Humalog High) 0 units SC Q6H [facility]; Protocol Last Admin: 09/10/18 18:00 Dose: Not Given Lactic Acid (Lac-Hydrin 12% Cream (140 G)) 0 ea TOP DAILY [facility] Last Admin: 09/10/18 09:01 Dose: 1 applic Levalbuterol HCl (Xopenex) 0.63 mg IH [id number] [facility] Last Admin: 09/10/18 20:30 Dose: 0.63 mg Methylprednisolone (Solu-Medrol) 20 mg IVP Q12H [facility] Last Admin: 09/10/18 20:04 Dose: 20 mg Nicotine (Nicoderm Cq) 1 patch TD DAILY [facility] Last Admin: 09/10/18 09:03 Dose: 1 patch Nystatin (Nystop Topical Powder) 0 gm TOP Q6 [facility] Last Admin: 09/10/18 18:35 Dose: 1 pdr Nystatin (Mycostatin Cream) 0 ea TOP TID [facility] Last Admin: 09/10/18 18:35 Dose: 1 unit Ondansetron HCl (Zofran Inj) 4 mg IVP Q4H PRN PRN Reason: Nausea/Vomiting Pantoprazole Sodium (Protonix Inj) 40 mg IVP Q12 [facility] Last Admin: 09/10/18 09:04 Dose: 40 mg - Labs Labs: 09/10/18 05:40 09/10/18 05:40 PT 15.7 SECONDS (9.4-12.5) H 09/09/18 06:47 INR 1.39 09/09/18 06:47 APTT 68.2 Seconds (26.9-38.3) H 09/10/18 10:10 Attending/Attestation - Attestation I have personally seen and examined this patient.: Yes I have fully participated in the care of the patient.: Yes I have reviewed all pertinent clinical information, including history, physical exam and plan: Yes
--- NOTE | 2018-09-10 16:09 | PN ---
DATE: 09/10/2018 SUBJECTIVE: The patient is seen in ICU bed 3. The patient was on ventilator with pressure support. Overnight, there was a concern about the patient's self extubation. The patient was started on dobutamine drip overnight in the last 12-24 hours. Patient extubated this am,presently on CPAP Awake and responsive. OBJECTIVE: VITAL SIGNS: T-max 97.8. Telemetry shows sinus rhythm, heart rate 71-82, blood pressure 116/68 and 107/82, respirations 27, and 02 sat 95% on ventilator support. HEAD: Normocephalic, atraumatic. HEENT: Shows positive CPAP. Pinkish conjunctivae. Anicteric sclerae. No oropharyngeal lesion. NECK: No neck rigidity. CHEST: Kyphosis. LUNGS: Shows positive creps, rhonchi and crackles bilaterally. CARDIOVASCULAR: S1 and S2. Regular rhythm. Positive systolic murmur at left sternal border, right second intercostal space, left second intercostal space. ABDOMEN: Obese. Positive bowel sounds. No palpable hepatosplenomegaly. GENITALIA: Female. RECTAL: Deferred. Positive Alonzo catheter noted. EXTREMITIES: Shows positive pitting edema of the lower extremity. MUSCULOSKELETAL: Shows elevated body mass index. NEUROLOGICAL: Limited secondary to the patient is ventilator dependent and lying in the bed. GAIT: Not tested. The patient is bedridden. PSYCHIATRIC: Not applicable. DIAGNOSTIC DATA: CBC from 09/10/2018 is within normal limits. Last ABG, which is available in the [facility], FiO2 at 60% on pressure support CPAP, pH of 7.43, pCO2 of 48, pO2 of 93, bicarb 32, and saturation 98%. Sodium 142, potassium 4.5, chloride 101, CO2 of 34, BUN 53, creatinine 1, glucose 114, calcium 8, phosphorus 4.3, magnesium 1.7, proBNP 4690, which has come down from greater than 6000, total protein 5.2, albumin 2.5. Vitamin D 25-hydroxy 12.8. Echocardiogram results noted. Left ventricular ejection fraction 39%, decreased LV systolic function, grade 1 abnormal relaxation pattern, right ventricular dilatation and hypokinesis. EKG shows right ventricular conduction delay with T-wave inversion in V1-V6. Repeat chest x-ray shows right lower lobe and right middle lobe pneumonia, infiltrate, consolidation, atelectasis and pleural effusion. Ultrasound of the abdomen shows gallstones, hepatomegaly and hepatic steatosis. IMPRESSION AND PLAN: 1. Acute ventilator-dependent respiratory failure. 2. Acute multilobar right-sided pulmonary embolism. 3. Acute exacerbation of chronic obstructive pulmonary disease with hypoxemia. 4. Prerenal kidney injury. 5. New onset early diabetes mellitus. 6. Acute systolic congestive heart failure with elevated ProBNP. 7. Borderline hypomagnesemia. 8. Mild protein malnutrition and hypoalbuminemia. 9. Hypovitaminosis D. 10. Multilobar right lower lobe and right middle lobe pneumonia and pleural effusion. 11. Cholelithiasis. 12. Hepatomegaly. 13. Hepatic steatosis. 14. Possible cardiomyopathy with left ventricular ejection fraction of 39% with decreased left ventricular systolic function. 15. Grade 1 abnormal relaxation pattern. 16. Right ventricular dilatation and hypokinesis. 17. Right ventricular conduction delay. 18. T-wave abnormalities V1-V6. 19. Acute non-ST elevation myocardial infarction with elevated troponin. 20. Bilateral lower extremity venous stasis. 21. Morbid obesity. 22. Active nicotine addiction and dependence. 23. New-onset diabetes mellitus. 1. Acute hypoxic hypercapnic ventilator-dependent respiratory failure. 2. Right lower lobe acute pulmonary embolism. 3. Hypoxemia. 4. Severe sepsis. 5. Acute exacerbation of chronic obstructive pulmonary disease with hypoxemia. 6. Congestive heart failure, most likely right-sided diastolic congestive heart failure. 7. Fever. 8. Possible bilateral multilobar bibasilar pneumonia. 9. Acute [id number]-[id number] myocardial infarction with elevated troponin of 0.13. 10. Coronary ischemic changes on the EKG. 11. Morbid obesity with diagnosis of active nicotine addiction and dependence. 12. Possible healthcare versus community-acquired multilobar pneumonia. 13. Active nicotine addiction. 14. Status post right internal jugular triple lumen placement. 15. Bilateral pleural effusion. 16. Morbid obesity. 17. Early diabetes mellitus. 18. Right axis deviation. 1. Acute ventilator-dependent respiratory failure. 2. Acute ventilator-dependent hypoxic-hypercarbic respiratory failure. 3. Respiratory acidosis with hypercarbia. 4. Distal right lower lobe and proximal right lower lobe segmental branches pulmonary embolism. 5. Right lower lobe pneumonia, infiltrate atelectasis with right-sided effusion. 6. Bibasilar atelectasis. 7. Cardiomegaly. 8. Possible pulmonary hypertension. 9. Right-sided aortic arch with aberrant left subclavian artery. 10. Left lower lobe atelectasis. 11. Bibasilar pulmonary opacities versus pneumonia. 12. Nonspecific mediastinal lymphadenopathy. 13. Active nicotine addiction and dependence. 14. Right renal atrophic scarring. 15. Right axis deviation. 16. Right ventricular hypertrophy. 17. Possible acute non-ST elevation myocardial infarction with elevated troponin. 18. Questionable sepsis with high-grade fever. 19. Tachycardia. 20. Tachypnea. 21. Hypoxemia. 22. Erythrocytosis with granulocytosis. 23. Elevated d-dimer. 24. Hypercarbia respiratory acidosis. 25. Non-hemolyzed hyperkalemia. 26. Possible new-onset diabetes mellitus. 27. Metabolic alkalosis. 28. Prerenal kidney injury. 29. Acute non-ST elevation myocardial infarction with elevated troponin and abnormal electrocardiogram with right axis deviation, right ventricular hypertrophy, and age indeterminate inferior infarct and possible lateral subendocardial injury. 30. Hyperphosphatemia. 31. Congestive heart failure whether systolic or diastolic with elevated ProBNP. 32. Proteinuria. 33. Bibasilar atelectasis, pneumonia and bilateral pleural effusion. 34. Cardiomegaly. 35. Status post right internal jugular triple-lumen catheter placement. 36. High-grade fever. 37. Right-sided aortic arch. 38. Acute exacerbation of chronic obstructive pulmonary disease. 39. Bibasilar atelectasis, infiltrate and bilateral pleural effusion. 40. Bilateral inguinal area fungal rash. 41. Severe sepsis. 42. Morbid obesity. 43. Bilateral lower extremity venous stasis. 44. Early diabetes mellitus. Plan at this time, the patient is to be continued on ventilator support with attempt for weaning and possible extubation if the patient tolerates weaning parameters. The patient will be continued on all the therapeutic intervention as per the MAR. The patient has been ordered a HIDA scan and GI evaluation. Surgical consultation has been ordered for evaluation of cholelithiasis. Current consultation is Infectious Disease, Cardiology, Nephrology, and Podiatry. The patient's overall prognosis is guarded. Condition is critical. The patient's further management will be dependent upon the patient's clinical condition, hemodynamic status and as per the patient's response to therapeutic intervention, as per the patient's diagnostic test results and as per recommendation by all the physician involved in the care of the patient. Time spent in the entire management is more than 35 minutes. Dictated and electronically signed, not read. Manuel Law MD [facility] # [id number] SHUN
[2018-09-10] MEDS: Ergocalciferol 50,000 Intl Units Cap PO SCH (18:32)
--- NOTE | 2018-09-10 20:24 | CP.PCM.PN ---
<Koffi Daniel - Last Filed: 09/10/18 20:17> Subjective - Date & Time of Evaluation Date of Evaluation: 09/10/18 Time of Evaluation: 07:45 - Subjective Subjective: Medicine progress note (Dr. Law) - Fredy, PGY - 2 Patient seen and examined at bedside. Concern of self-extubation overnight; otherwise no acute overnight events. Remains intubated and sedated Objective - Vital Signs/Intake and Output Vital Signs (last 24 hours): Temp Pulse Resp BP Pulse Ox 98.1 F 80 27 H 113/57 L 90 L 09/10/18 16:00 09/10/18 18:45 09/10/18 18:45 09/10/18 18:45 09/10/18 18:45 Intake and Output: 09/10/18 09/11/18 18:59 06:59 Intake Total 1113 Output Total 1700 Balance -587 - Medications Medications: Current Medications Acetaminophen (Tylenol 325mg Tab) 650 mg PO Q6 PRN PRN Reason: TEMP>=99.5F Acetaminophen (Tylenol 650 Mg Supp) 650 mg RC Q6H PRN PRN Reason: TEMP>=99.5F Allopurinol (Zyloprim) 100 mg PO DAILY [facility] Last Admin: 09/10/18 18:25 Dose: 100 mg Dextrose (Dextrose 50% Inj) 0 ml IV STAT PRN; Protocol PRN Reason: Hypoglycemia Protocol Doxycycline Hyclate (Doryx) 100 mg PO Q12 [facility]; Protocol Ergocalciferol (Drisdol 50,000 Intl Units Cap) 1 cap PO Q7D [facility] Last Admin: 09/10/18 18:32 Dose: 1 cap Furosemide (Lasix) 40 mg IVP Q12 [facility] Last Admin: 09/10/18 09:02 Dose: 40 mg Heparin Sodium/Sodium Chloride (Heparin 66137 Units/250ml 1/2 Normal Saline) 25,000 units in 250 mls @ 19.922 mls/hr IV .[id number] PRN; Protocol PRN Reason: ADJUST RATE PER PROTOCOL Last Admin: 09/10/18 06:33 Dose: 10 units/kg/hr, 11.068 mls/hr Meropenem (Merrem Iv 1 Gm Premix) 1 gm in 50 mls @ 100 mls/hr IVPB Q12 [facility]; Protocol Stop: 09/17/18 22:01 Last Admin: 09/10/18 09:02 Dose: 100 mls/hr Dextrose (Dextrose 5% In Water 1000 Ml) 1,000 mls @ 0 mls/hr IV .Q0M PRN; Protocol PRN Reason: Hypoglycemia Protocol Dobutamine HCl/Dextrose (Dobutamine/Dextrose 5% 500mg/250ml) 500 mg in 250 mls @ 8.301 mls/hr IV .Q24H PRN; Protocol PRN Reason: TITRATE PER PROTOCOL Last Admin: 09/09/18 17:42 Dose: 2.5 mcg/kg/min, 8.301 mls/hr Insulin Human Lispro (Humalog High) 0 units SC Q6H [facility]; Protocol Last Admin: 09/10/18 18:00 Dose: Not Given Lactic Acid (Lac-Hydrin 12% Cream (140 G)) 0 ea TOP DAILY [facility] Last Admin: 09/10/18 09:01 Dose: 1 applic Levalbuterol HCl (Xopenex) 0.63 mg IH [id number] [facility] Last Admin: 09/10/18 13:05 Dose: 0.63 mg Methylprednisolone (Solu-Medrol) 20 mg IVP Q12H [facility] Last Admin: 09/10/18 09:04 Dose: 20 mg Nicotine (Nicoderm Cq) 1 patch TD DAILY [facility] Last Admin: 09/10/18 09:03 Dose: 1 patch Nystatin (Nystop Topical Powder) 0 gm TOP Q6 [facility] Last Admin: 09/10/18 18:35 Dose: 1 pdr Nystatin (Mycostatin Cream) 0 ea TOP TID [facility] Last Admin: 09/10/18 18:35 Dose: 1 unit Ondansetron HCl (Zofran Inj) 4 mg IVP Q4H PRN PRN Reason: Nausea/Vomiting Pantoprazole Sodium (Protonix Inj) 40 mg IVP Q12 [facility] Last Admin: 09/10/18 09:04 Dose: 40 mg - Labs Labs: 09/10/18 05:40 09/10/18 05:40 PT 15.7 SECONDS (9.4-12.5) H 09/09/18 06:47 INR 1.39 09/09/18 06:47 APTT 68.2 Seconds (26.9-38.3) H 09/10/18 10:10 - Constitutional Appears: Well - Head Exam Head Exam: ATRAUMATIC, NORMAL INSPECTION, NORMOCEPHALIC - Eye Exam Eye Exam: EOMI, Normal appearance, PERRL Pupil Exam: NORMAL ACCOMODATION, PERRL - ENT Exam ENT Exam: Mucous Membranes Moist, Normal Exam - Neck Exam Neck Exam: Full ROM, Normal Inspection. absent: Lymphadenopathy - Respiratory Exam Respiratory Exam: Clear to Ausculation Bilateral, NORMAL BREATHING PATTERN - Cardiovascular Exam Cardiovascular Exam: REGULAR RHYTHM, +S1, +S2. absent: Murmur - GI/Abdominal Exam GI & Abdominal Exam: Soft, Normal Bowel Sounds. absent: Tenderness - Extremities Exam Extremities Exam: Full ROM, Normal Capillary Refill, Normal Inspection. absent: Joint Swelling, Pedal Edema - Back Exam Back Exam: NORMAL INSPECTION - Neurological Exam Neurological Exam: Alert, Awake, CN II-XII Intact, Normal Gait, Oriented x3 - Psychiatric Exam Psychiatric exam: Normal Affect, Normal Mood - Skin Skin Exam: Dry, Intact, Normal Color, Warm Assessment and Plan - Assessment and Plan (Free Text) Assessment: 73 F with acute AMS, PNA, and acute hypoxic hypercapneic respiratory failure Plan Acute Pulmonary Embolism - Continue with heparin drip Acute Hypoxic Hypercapneic Respiratory Failure - Continue with ventilator support using low TV ventilation - Duonebs PRN - CXR daily, ABG daily - Solumederol Possible Cholelithiasis - GI, Surgery consult - HIDA scan Acute CHF Exacerbtion - Lasix 40 q12 CKD Stage 3 - Nephro following Proteinuria - Add CAROL-I or ARB once BP is stable off pressors Acute PNA - Continue Merrem, Doxy, Vanc - F/u pancultures Acute Uremia - Monitor HTN - Continue current medical therapy <Manuel Law U - Last Filed: 09/15/18 19:20> Objective - Vital Signs/Intake and Output Vital Signs (last 24 hours): Temp Pulse Resp BP Pulse Ox 98.7 F 77 22 113/81 94 L 09/15/18 16:00 09/15/18 16:00 09/15/18 15:56 09/15/18 15:56 09/15/18 14:56 Intake and Output: 09/15/18 09/16/18 18:59 06:59 Intake Total 1145 Output Total 1276 Balance -131 - Medications Medications: Current Medications Acetaminophen (Tylenol 325mg Tab) 650 mg PO Q6 PRN PRN Reason: TEMP>=99.5F Last Admin: 09/14/18 17:04 Dose: 650 mg Acetaminophen (Tylenol 650 Mg Supp) 650 mg RC Q6H PRN PRN Reason: TEMP>=99.5F Albuterol/Ipratropium (Duoneb 3 Mg/0.5 Mg (3 Ml) Ud) 3 ml IH [id number] [facility] Last Admin: 09/15/18 14:29 Dose: 3 ml Allopurinol (Zyloprim) 100 mg PO DAILY [facility] Last Admin: 09/15/18 09:58 Dose: 100 mg Arformoterol Tartrate (Brovana) 15 mcg IH [id number] [facility] Budesonide (Pulmicort Respules) 0.5 mg IH [id number] [facility] Dextrose (Dextrose 50% Inj) 0 ml IV STAT PRN; Protocol PRN Reason: Hypoglycemia Protocol Ergocalciferol (Drisdol 50,000 Intl Units Cap) 1 cap PO Q7D [facility] Last Admin: 09/10/18 18:32 Dose: 1 cap Dextrose (Dextrose 5% In Water 1000 Ml) 1,000 mls @ 0 mls/hr IV .Q0M PRN; Protocol PRN Reason: Hypoglycemia Protocol Insulin Human Lispro (Humalog High) 0 units SC ACHS [facility]; Protocol Last Admin: 09/15/18 16:48 Dose: Not Given Lactic Acid (Lac-Hydrin 12% Cream (140 G)) 0 ea TOP DAILY [facility] Last Admin: 09/15/18 10:05 Dose: 1 applic Nicotine (Nicoderm Cq) 1 patch TD DAILY [facility] Last Admin: 09/15/18 09:59 Dose: 1 patch Nystatin (Nystop Topical Powder) 0 gm TOP Q6 [facility] Last Admin: 09/15/18 18:23 Dose: 1 pdr Nystatin (Mycostatin Cream) 0 ea TOP TID [facility] Last Admin: 09/15/18 18:24 Dose: 1 unit Ondansetron HCl (Zofran Inj) 4 mg IVP Q4H PRN PRN Reason: Nausea/Vomiting Pantoprazole Sodium (Protonix Ec Tab) 40 mg PO 0600,1600 [facility] Last Admin: 09/15/18 16:48 Dose: 40 mg Polyethylene Glycol (Miralax) 17 gm PO BID [facility] Last Admin: 03/18/19 18:23 Dose: 17 gm Prednisone (Prednisone Tab) 40 mg PO DAILY [facility] Stop: 09/20/18 10:01 - Labs Labs: 09/15/18 17:01 09/15/18 05:02 PT 11.4 SECONDS (9.4-12.5) 09/15/18 05:02 INR 1.01 09/15/18 05:02 APTT 24.0 Seconds (26.9-38.3) L 09/15/18 05:02 Attending/Attestation - Attestation I have personally seen and examined this patient.: Yes I have fully participated in the care of the patient.: Yes I have reviewed all pertinent clinical information, including history, physical exam and plan: Yes Notes (Text): Please see/read my dictated notes.
[2018-09-10] MEDS: DOBUTamine 500mg/250ml D5W 500 MG/250 ML BAG IV PRN (23:43)
[2018-09-11] MEDS: Insulin Lispro (HUMAlog) HIGH Coverage SC SCH ×4 (00:11→22:00)
[2018-09-11] MEDS: Nystatin 100,000 Units/gm Topical Pow(15 gm) TOP SCH ×4 (00:17→18:15)
[2018-09-11] MEDS: Heparin25000 units/250ml 1/2NS 25,000 UNITS/250 ML BAG IV PRN ×2 (00:54→21:27)
[2018-09-11] MEDS: Levalbuterol 0.63 MG/3 ML Inhal Soln UD IH SCH ×4 (01:40→19:27)
[2018-09-11] MEDS: Pantoprazole 40 mg EC Tab PO SCH ×2 (05:25→18:25)
[2018-09-11 06:14] LABS: INR 1.83; PROTHROMBIN TIME 20.3 SECONDS (9.4-12.5)
[2018-09-11 06:20] LABS: B-TYPE NATRIURETIC PEPTIDE 1880 pg/mL (0-450)
[2018-09-11 06:34] LABS: HEMOGLOBIN 12.9 g/dL (12.0-16.0); LYMPH # 0.6 (1.2-3.4); LYMPH % 6.3 % (22.0-35.0); MEAN CELL VOLUME 95.5 fl (80.0-105.0); MEAN CORPUSCULAR HEMOGLOBIN 29.3 pg (25.0-35.0); MEAN CORPUSCULAR HGB CONC 30.6 g/dl (31.0-37.0); MEAN PLATELET VOLUME 10.2 fl (7.0-11.0); MONO # 0.4 (0.1-0.6); MONO % 4.4 % (1.0-6.0); RBC 4.41 10^6/uL (3.5-6.1); RED CELL DISTRIBUTION WIDTH 14.8 % (11.5-14.5); WHITE BLOOD COUNT 8.8 10^3/uL (4.5-11.0)
[2018-09-11 06:49] LABS: BILIRUBIN,DIRECT 0.5 mg/dL (0.0-0.4)
[2018-09-11 06:50] LABS: ALBUMIN 2.7 g/dL (3.0-4.8); ALT/SGPT 23 U/L (7-56); AST/SGOT 29 U/L (14-36); BLOOD UREA NITROGEN 50 mg/dL (7-21); CALCIUM 8.1 mg/dL (8.4-10.5); GFR NON-AFRICAN AMERICAN > 60
--- NOTE | 2018-09-11 07:02 | CP.CCUPN ---
<Christopher Crockett - Last Filed: 09/11/18 16:49> CCU Subjective - Physician Review Subjective (Free Text): Christopher Crockett DO. Critical Care Progress note Patient seen and examined at bedside. She is awake, oriented in NAD. She has been on BiPAP overnight with no acute events. Denied CP, SOB, palpitations CCU Objective - Vital Signs / Intake & Output Vital Signs (Last 4 hours): Vital Signs Pulse Resp BP Pulse Ox 09/11/18 04:00 78 118/58 L 09/11/18 03:59 77 23 94 L 09/11/18 03:45 73 24 126/49 L 92 L 09/11/18 03:30 79 26 H 127/59 L 94 L 09/11/18 03:16 78 23 123/59 L 88 L Intake and Output (Last 8hrs): Intake & Output 09/10/18 09/11/18 09/11/18 22:59 06:59 14:59 Intake Total 1113 500 Output Total 1700 Balance -587 500 Intake: IV 633 500 antibiotics 400 dobutamine 100 heparin 133 Oral 480 Output: Urine 1700 Urethral (Alonzo) 1700 Other: # Bowel Movements 0 - Physical Exam Head: Positive for: Atraumatic, Normocephalic Conjunctiva: Positive for: Normal, Other Mouth: Positive for: Dry Nose (Internal): Positive for: Normal Inspection Neck: Positive for: Trachea Midline. Negative for: JVD, Bruit Respiratory/Chest: Positive for: Wheezes (improving), Decreased Breath Sounds Cardiovascular: Positive for: Regular Rate and Rhythm, Normal S1, S2. Negative for: Rub, Gallop Abdomen: Positive for: Normal Bowel Sounds. Negative for: Tenderness, Distention Breast/Axillary: Positive for: Erythema (Erythematous bilateral candidal rash to breast) Lower Extremity: Positive for: Edema (3+ pedal edema bilateral) Neurological: Positive for: GCS=15, Speech Normal Skin: Positive for: Rashes, Erythematous (bilateral candidal rash to groin, hips, abdomen) Psychiatric: Positive for: Oriented x 3, Normal Insight, Normal Concentration - Medications Active Medications: Active Medications Generic Name Dose Route Start Last Admin Trade Name Freq PRN Reason Stop Dose Admin Acetaminophen 650 mg 09/08/18 14:22 Tylenol 325mg Tab PO Q6 PRN TEMP>=99.5F Acetaminophen 650 mg 09/08/18 14:22 Tylenol 650 Mg Supp RC Q6H PRN TEMP>=99.5F Allopurinol 100 mg 09/09/18 10:00 09/10/18 18:25 Zyloprim PO 100 mg DAILY DEANGELO Administration Dextrose 0 ml 09/08/18 22:59 Dextrose 50% Inj IV STAT PRN Hypoglycemia Protocol Protocol Doxycycline Hyclate 100 mg 09/10/18 22:00 09/10/18 22:54 Doryx PO 100 mg Q12 DEANGELO Administration Protocol Ergocalciferol 1 cap 09/10/18 14:30 09/10/18 18:32 Drisdol 50,000 Intl Units Cap PO 1 cap Q7D DEANGELO Administration Furosemide 40 mg 09/08/18 23:00 09/10/18 22:54 Lasix IVP 40 mg Q12 DEANGELO Administration Heparin Sodium/Sodium Chloride 25,000 units in 250 mls @ 19.922 mls/hr 09/08/18 16:40 09/11/18 00:54 Heparin 48598 Units/250ml 1/2 Normal Saline IV 10 units/kg/hr .[id number] PRN 11.068 mls/hr ADJUST RATE PER PROTOCOL Administration Protocol 18 UNITS/KG/HR Meropenem 1 gm in 50 mls @ 100 mls/hr 09/08/18 22:00 09/10/18 22:55 Merrem Iv 1 Gm Premix IVPB 09/17/18 22:01 100 mls/hr Q12 DEANGELO Administration Protocol Dextrose 1,000 mls @ 0 mls/hr 09/08/18 22:59 Dextrose 5% In Water 1000 Ml IV .Q0M PRN Hypoglycemia Protocol Protocol Per Protocol Dobutamine HCl/Dextrose 500 mg in 250 mls @ 8.301 mls/hr 09/09/18 16:30 09/10/18 23:43 Dobutamine/Dextrose 5% 500mg/250ml IV 2.5 mcg/kg/min .Q24H PRN 8.301 mls/hr TITRATE PER PROTOCOL Administration Protocol 2.5 MCG/KG/MIN Insulin Human Lispro 0 units 09/08/18 23:01 09/11/18 00:11 Humalog High SC Not Given Q6H DEANGELO Protocol Lactic Acid 0 ea 09/10/18 10:00 09/10/18 09:01 Lac-Hydrin 12% Cream (140 G) TOP 1 applic DAILY DEANGELO Administration Levalbuterol HCl 0.63 mg 09/08/18 20:00 09/11/18 01:40 Xopenex IH 0.63 mg [id number] DEANGELO Administration Methylprednisolone 20 mg 09/09/18 08:15 09/10/18 20:04 Solu-Medrol IVP 20 mg Q12H DEANGELO Administration Nicotine 1 patch 09/09/18 10:00 09/10/18 09:03 Nicoderm Cq TD 1 patch DAILY DEANGELO Administration Nystatin 0 gm 09/08/18 18:00 09/11/18 05:27 Nystop Topical Powder TOP 1 pdr Q6 DEANGELO Administration Nystatin 0 ea 09/08/18 23:00 09/10/18 18:35 Mycostatin Cream TOP 1 unit TID DEANGELO Administration Ondansetron HCl 4 mg 09/08/18 14:22 Zofran Inj IVP Q4H PRN Nausea/Vomiting Pantoprazole Sodium 40 mg 09/11/18 06:00 09/11/18 05:25 Protonix Ec Tab PO 40 mg 0600,1600 DEANGELO Administration Polyethylene Glycol 17 gm 09/11/18 10:00 Miralax PO BID DEANGELO - Patient Studies Lab Studies: Microbiology Studies 09/09/18 22:42 Gram Stain - Final Sputum Induced 09/08/18 12:30 Blood Culture - Preliminary Blood NO GROWTH AFTER 48 HOURS 09/08/18 12:00 Blood Culture - Preliminary Blood NO GROWTH AFTER 48 HOURS Lab Studies 09/11/18 09/11/18 09/11/18 Range/Units 06:43 05:10 05:10 WBC (4.5-11.0) 10^3/uL RBC (3.5-6.1) 10^6/uL Hgb (12.0-16.0) g/dL Hct (36.0-48.0) % MCV (80.0-105.0) fl MCH (25.0-35.0) pg MCHC (31.0-37.0) g/dl RDW (11.5-14.5) % Plt Count (120.0-450.0) 10^3/uL MPV (7.0-11.0) fl Neut % (Auto) (50.0-68.0) % Lymph % (Auto) (22.0-35.0) % [place] % (Auto) (1.0-6.0) % Eos % (Auto) (1.5-5.0) % Baso % (Auto) (0.0-3.0) % Lymph # (Auto) (1.2-3.4) [place] # (Auto) (0.1-0.6) Eos # (Auto) (0.0-0.7) Baso # (Auto) (0.0-2.0) K/mm3 Absolute Neuts (auto) (1.4-6.5) PT 20.3 H (9.4-12.5) SECONDS INR 1.83 APTT 65.0 H (26.9-38.3) Seconds Sodium 141 (132-148) mmol/L Potassium 4.5 (3.6-5.0) mmol/L Chloride 96 L (98-107) mmol/L Carbon Dioxide (21-33) mmol/L Anion Gap (10-20) BUN 50 H (7-21) mg/dL Creatinine 0.9 (0.7-1.2) mg/dl Est GFR ( Amer) > 60 Est GFR (Non-Af Amer) > 60 POC Glucose (mg/dL) 124 H (65-110) mg/dL Random Glucose 130 H (70-110) mg/dL Calcium 8.1 L (8.4-10.5) mg/dL Phosphorus 4.2 (2.5-4.5) mg/dL Magnesium 1.6 L (1.7-2.2) mg/dL Total Bilirubin 0.5 (0.2-1.3) mg/dL Direct Bilirubin 0.5 H (0.0-0.4) mg/dL AST 29 (14-36) U/L ALT 23 (7-56) U/L Alkaline Phosphatase 61 (38-126) U/L NT-Pro-B Natriuret Pep 1880 H (0-450) pg/mL Total Protein 5.4 L (5.8-8.3) g/dL Albumin 2.7 L (3.0-4.8) g/dL Globulin 2.7 gm/dL Albumin/Globulin Ratio 1.0 L (1.1-1.8) 09/11/18 09/10/1809/10/19 Range/Units 05:10 23:18 11:06 WBC 8.8 (4.5-11.0) 10^3/uL RBC 4.41 (3.5-6.1) 10^6/uL Hgb 12.9 (12.0-16.0) g/dL Hct 42.1 (36.0-48.0) % MCV 95.5 (80.0-105.0) fl MCH 29.3 (25.0-35.0) pg MCHC 30.6 L (31.0-37.0) g/dl RDW 14.8 H (11.5-14.5) % Plt Count 218 (120.0-450.0) 10^3/uL MPV 10.2 (7.0-11.0) fl Neut % (Auto) 89.3 H (50.0-68.0) % Lymph % (Auto) 6.3 L (22.0-35.0) % [place] % (Auto) 4.4 (1.0-6.0) % Eos % (Auto) 0.0 L (1.5-5.0) % Baso % (Auto) 0.0 (0.0-3.0) % Lymph # (Auto) 0.6 L (1.2-3.4) [place] # (Auto) 0.4 (0.1-0.6) Eos # (Auto) 0.0 (0.0-0.7) Baso # (Auto) 0.00 (0.0-2.0) K/mm3 Absolute Neuts (auto) 7.87 H (1.4-6.5) PT (9.4-12.5) SECONDS INR APTT (26.9-38.3) Seconds Sodium (132-148) mmol/L Potassium (3.6-5.0) mmol/L Chloride (98-107) mmol/L Carbon Dioxide (21-33) mmol/L Anion Gap (10-20) BUN (7-21) mg/dL Creatinine (0.7-1.2) mg/dl Est GFR ( Amer) Est GFR (Non-Af Amer) POC Glucose (mg/dL) 112 H 109 (65-110) mg/dL Random Glucose (70-110) mg/dL Calcium (8.4-10.5) mg/dL Phosphorus (2.5-4.5) mg/dL Magnesium (1.7-2.2) mg/dL Total Bilirubin (0.2-1.3) mg/dL Direct Bilirubin (0.0-0.4) mg/dL AST (14-36) U/L ALT (7-56) U/L Alkaline Phosphatase (38-126) U/L NT-Pro-B Natriuret Pep (0-450) pg/mL Total Protein (5.8-8.3) g/dL Albumin (3.0-4.8) g/dL Globulin gm/dL Albumin/Globulin Ratio (1.1-1.8) 09/10/18 09/10/18 Range/Units 10:10 05:40 WBC (4.5-11.0) 10^3/uL RBC (3.5-6.1) 10^6/uL Hgb (12.0-16.0) g/dL Hct (36.0-48.0) % MCV (80.0-105.0) fl MCH (25.0-35.0) pg MCHC (31.0-37.0) g/dl RDW (11.5-14.5) % Plt Count (120.0-450.0) 10^3/uL MPV (7.0-11.0) fl Neut % (Auto) (50.0-68.0) % Lymph % (Auto) (22.0-35.0) % [place] % (Auto) (1.0-6.0) % Eos % (Auto) (1.5-5.0) % Baso % (Auto) (0.0-3.0) % Lymph # (Auto) (1.2-3.4) [place] # (Auto) (0.1-0.6) Eos # (Auto) (0.0-0.7) Baso # (Auto) (0.0-2.0) K/mm3 Absolute Neuts (auto) (1.4-6.5) PT (9.4-12.5) SECONDS INR APTT 68.2 H (26.9-38.3) Seconds Sodium 142 (132-148) mmol/L Potassium 4.5 (3.6-5.0) mmol/L Chloride 101 (98-107) mmol/L Carbon Dioxide 34 H (21-33) mmol/L Anion Gap 11 (10-20) BUN 53 H (7-21) mg/dL Creatinine 1.0 (0.7-1.2) mg/dl Est GFR ( Amer) > 60 Est GFR (Non-Af Amer) 54 POC Glucose (mg/dL) (65-110) mg/dL Random Glucose 114 H (70-110) mg/dL Calcium 8.0 L (8.4-10.5) mg/dL Phosphorus 4.3 (2.5-4.5) mg/dL Magnesium 1.7 (1.7-2.2) mg/dL Total Bilirubin 0.5 (0.2-1.3) mg/dL Direct Bilirubin 0.5 H (0.0-0.4) mg/dL AST 22 (14-36) U/L ALT 22 (7-56) U/L Alkaline Phosphatase 69 (38-126) U/L NT-Pro-B Natriuret Pep 4690 H (0-450) pg/mL Total Protein 5.3 L (5.8-8.3) g/dL Albumin 2.5 L (3.0-4.8) g/dL Globulin 2.7 gm/dL Albumin/Globulin Ratio 0.9 L (1.1-1.8) Laboratory Results - last 24 hr 09/10/18 09/10/18 09/10/18 05:40 10:10 11:06 WBC RBC Hgb Hct MCV MCH MCHC RDW Plt Count MPV Neut % (Auto) Lymph % (Auto) [place] % (Auto) Eos % (Auto) Baso % (Auto) Lymph # (Auto) [place] # (Auto) Eos # (Auto) Baso # (Auto) Absolute Neuts (auto) PT INR APTT 68.2 H Sodium 142 Potassium 4.5 Chloride 101 Carbon Dioxide 34 H Anion Gap 11 BUN 53 H Creatinine 1.0 Est GFR ( Amer) > 60 Est GFR (Non-Af Amer) 54 POC Glucose (mg/dL) 109 Random Glucose 114 H Calcium 8.0 L Phosphorus 4.3 Magnesium 1.7 Total Bilirubin 0.5 Direct Bilirubin 0.5 H AST 22 ALT 22 Alkaline Phosphatase 69 NT-Pro-B Natriuret Pep 4690 H Total Protein 5.3 L Albumin 2.5 L Globulin 2.7 Albumin/Globulin Ratio 0.9 L 09/10/18 09/11/18 09/11/18 23:18 05:10 05:10 WBC 8.8 RBC 4.41 Hgb 12.9 Hct 42.1 MCV 95.5 MCH 29.3 MCHC 30.6 L RDW 14.8 H Plt Count 218 MPV 10.2 Neut % (Auto) 89.3 H Lymph % (Auto) 6.3 L [place] % (Auto) 4.4 Eos % (Auto) 0.0 L Baso % (Auto) 0.0 Lymph # (Auto) 0.6 L [place] # (Auto) 0.4 Eos # (Auto) 0.0 Baso # (Auto) 0.00 Absolute Neuts (auto) 7.87 H PT INR APTT Sodium 141 Potassium 4.5 Chloride 96 L Carbon Dioxide Anion Gap BUN 50 H Creatinine 0.9 Est GFR ( Amer) > 60 Est GFR (Non-Af Amer) > 60 POC Glucose (mg/dL) 112 H Random Glucose 130 H Calcium 8.1 L Phosphorus 4.2 Magnesium 1.6 L Total Bilirubin 0.5 Direct Bilirubin 0.5 H AST 29 ALT 23 Alkaline Phosphatase 61 NT-Pro-B Natriuret Pep 1880 H Total Protein 5.4 L Albumin 2.7 L Globulin 2.7 Albumin/Globulin Ratio 1.0 L 09/11/18 09/11/18 05:10 06:43 WBC RBC Hgb Hct MCV MCH MCHC RDW Plt Count MPV Neut % (Auto) Lymph % (Auto) [place] % (Auto) Eos % (Auto) Baso % (Auto) Lymph # (Auto) [place] # (Auto) Eos # (Auto) Baso # (Auto) Absolute Neuts (auto) PT 20.3 H INR 1.83 APTT 65.0 H Sodium Potassium Chloride Carbon Dioxide Anion Gap BUN Creatinine Est GFR ( Amer) Est GFR (Non-Af Amer) POC Glucose (mg/dL) 124 H Random Glucose Calcium Phosphorus Magnesium Total Bilirubin Direct Bilirubin AST ALT Alkaline Phosphatase NT-Pro-B Natriuret Pep Total Protein Albumin Globulin Albumin/Globulin Ratio Radiology Impressions: Radiology Impressions Abdomen/Pelvis CT 09/08/18 23:16 IMPRESSION: No acute findings related to/ accounting for the clinical presentation. Additional benign and/or incidental findings described above. Concordant findings (preliminary report) provided by FRANK COREA. EKG/Cardiology Studies: Cardiology / EKG Studies 09/10/18 07:00 EKG [ELECTROCARDIOGRAM] DAILY Comment: Reason For Exam: AMI 09/11/18 07:00 EKG [ELECTROCARDIOGRAM] DAILY Comment: Reason For Exam: AMI Fingerstick Blood Sugar Results: 112 Critical Care Progress Note - Ventilator Checklist Head of Bed 30 Degrees: Yes Daily Sedation Vacation: Yes Daily Assessment of Readiness to Wean: Yes Daily Spontaneous Breathing Trial: Yes PUD Prophalyxis: Yes DVT Prophylaxis: Yes Oral Care with Chlorhexidine Gluconate {CHG}: Yes - Vent Settings MODE:: PRESSURE SUPPORT - Nutrition Nutrition: Nutrition Category Date Time Status Liquid Diet [DIET] Diets 09/10/18 Breakfast Ordered Assessment/Plan - Assessment and Plan (Free Text) Assessment: 73 y/o female admitted to ICU for AMS and respiratory distress found to have PE on right lung with possible PNA and biventricular dysfunction in the setting of CHF exacerbation Plan: Neuro: -AAO x3 in NAD -maintain normthermia Cardio: -Echo: moderate to severe LV dysfunction. Right ventricular hypokinesia and strain in the setting of PE -continue dobutamine 2.5 mcg/kg/min -continue lasix 40 mg daily -BNP trending down 32387 to 1880 -trops trending down 0.13 to 0.08 likely due to RV strain in the setting of PE -maintain MAP> 65 -cardiology following Pulm: -resolved acute respiratory failure -on BiPAP 11/02 12 60% -CT chest: subsegmental right lung PE with small pleural effusion -LE doppler negative for DVT -on therapeutic heparin drip -PTT 184 > 81.3 > 65 -AB.39/ 66/ 95/40 -CXR: vascular congestion. possible PNA. Repeat CXR shows improvement -continue solu-medrol 40 daily -continue xopenex q6h deangelo ID: -possible cellulitis on abdominal wall, hip -CT left hip ordered -continue topical nystatin -CPK normal -UCx, MRSA, legionella negative -f/u strep Ag, BCx -low procal -continue meropenem, doxycycline PO. d/c vancomycin as per ID -afebrile, no leukocytosis -ID following /Renal: -CKD with proteinurea -UOP 3600 -maintain euvolemia, euglycemia -UDS negative -nephrology following Prophylaxis: Protonix bid SCD, therapeutic heparin Continue ICU management Case reviewed and discussed with attending Dr Brink <Byron Brink - Last Filed: 09/15/18 10:49> CCU Objective - Vital Signs / Intake & Output Intake and Output (Last 8hrs): Intake & Output 09/14/18 09/15/18 09/15/18 22:59 06:59 14:59 Intake Total 1152 633 Output Total 950 900 Balance 202 -267 Intake: IV 202 50 Right Internal Jugular 50 50 heparin 152 Oral 950 Blood Product 583 Output: Urine 950 900 Urethral (Alonzo) 950 900 Stool 0 - Medications Active Medications: Active Medications Generic Name Dose Route Start Last Admin Trade Name Freq PRN Reason Stop Dose Admin Acetaminophen 650 mg 09/08/18 14:22 09/14/18 17:04 Tylenol 325mg Tab PO 650 mg Q6 PRN Administration TEMP>=99.5F Acetaminophen 650 mg 09/08/18 14:22 Tylenol 650 Mg Supp RC Q6H PRN TEMP>=99.5F Acetazolamide 250 mg 09/14/18 10:30 09/15/18 09:58 Diamox 250 Mg Tab PO 09/16/18 10:31 250 mg BID DEANGELO Administration Albuterol/Ipratropium 3 ml 09/13/18 14:00 09/15/18 08:07 Duoneb 3 Mg/0.5 Mg (3 Ml) Ud IH 3 ml [id number] DEANGELO Administration Allopurinol 100 mg 09/09/18 10:00 09/15/18 09:58 Zyloprim PO 100 mg DAILY DEANGELO Administration Arformoterol Tartrate 15 mcg 09/15/18 20:00 Brovana IH [id number] DEANGELO Budesonide 0.5 mg 09/15/18 20:00 Pulmicort Respules IH [id number] DEANGELO Dextrose 0 ml 09/08/18 22:59 Dextrose 50% Inj IV STAT PRN Hypoglycemia Protocol Protocol Ergocalciferol 1 cap 09/10/18 14:30 09/10/18 18:32 Drisdol 50,000 Intl Units Cap PO 1 cap Q7D DEANGELO Administration Dextrose 1,000 mls @ 0 mls/hr 09/08/18 22:59 Dextrose 5% In Water 1000 Ml IV .Q0M PRN Hypoglycemia Protocol Protocol Per Protocol Insulin Human Lispro 0 units 09/11/18 22:00 09/15/18 08:23 Humalog High SC Not Given ACHS DEANGELO Protocol Lactic Acid 0 ea 09/10/18 10:00 09/15/18 10:05 Lac-Hydrin 12% Cream (140 G) TOP 1 applic DAILY DEANGELO Administration Nicotine 1 patch 09/09/18 10:00 09/15/18 09:59 Nicoderm Cq TD 1 patch DAILY DEANGELO Administration Nystatin 0 gm 09/08/18 18:00 09/15/18 05:11 Nystop Topical Powder TOP 1 pdr Q6 DEANGELO Administration Nystatin 0 ea 09/08/18 23:00 09/15/18 10:01 Mycostatin Cream TOP 1 unit TID DEANGELO Administration Ondansetron HCl 4 mg 09/08/18 14:22 Zofran Inj IVP Q4H PRN Nausea/Vomiting Pantoprazole Sodium 40 mg 09/11/18 06:00 09/15/18 05:11 Protonix Ec Tab PO 40 mg 0600,1600 DEANGELO Administration Patiromer 8.4 gm 09/14/18 10:00 09/15/18 10:40 Velt[place] PO 09/16/18 10:01 8.4 gm DAILY DEANGELO Administration Polyethylene Glycol 17 gm 09/11/18 10:00 09/15/18 09:59 Miralax PO 17 gm BID DEANGELO Administration Prednisone 40 mg 09/16/18 10:00 Prednisone Tab PO 09/20/18 10:01 DAILY DEANGELO - Patient Studies Lab Studies: Lab Studies 09/15/18 09/15/18 09/15/18 Range/Units 05:02 05:02 05:02 WBC 11.5 H (4.5-11.0) 10^3/uL RBC 2.92 L (3.5-6.1) 10^6/uL Hgb 8.5 L (12.0-16.0) g/dL Hct 29.0 L (36.0-48.0) % MCV 99.3 (80.0-105.0) fl MCH 29.1 (25.0-35.0) pg MCHC 29.3 L (31.0-37.0) g/dl RDW 14.4 (11.5-14.5) % Plt Count 175 (120.0-450.0) 10^3/uL MPV 10.0 (7.0-11.0) fl Neut % (Auto) 92.5 H (50.0-68.0) % Lymph % (Auto) 2.8 L (22.0-35.0) % [place] % (Auto) 4.5 (1.0-6.0) % Eos % (Auto) 0.1 L (1.5-5.0) % Baso % (Auto) 0.1 (0.0-3.0) % Lymph # (Auto) 0.3 L (1.2-3.4) [place] # (Auto) 0.5 (0.1-0.6) Eos # (Auto) 0.0 (0.0-0.7) Baso # (Auto) 0.01 (0.0-2.0) K/mm3 Absolute Neuts (auto) 10.67 H (1.4-6.5) PT 11.4 (9.4-12.5) SECONDS INR 1.01 APTT 24.0 L (26.9-38.3) Seconds Sodium 137 (132-148) mmol/L Potassium 4.5 (3.6-5.0) mmol/L Chloride 95 L (98-107) mmol/L Carbon Dioxide 37 H (21-33) mmol/L Anion Gap 9 L (10-20) BUN 46 H (7-21) mg/dL Creatinine 1.1 (0.7-1.2) mg/dl Est GFR ( Amer) 59 Est GFR (Non-Af Amer) 49 POC Glucose (mg/dL) (65-110) mg/dL Random Glucose 126 H (70-110) mg/dL Calcium 8.4 (8.4-10.5) mg/dL Phosphorus 5.5 H (2.5-4.5) mg/dL Magnesium 2.2 (1.7-2.2) mg/dL Total Bilirubin 0.7 (0.2-1.3) mg/dL Direct Bilirubin 0.4 (0.0-0.4) mg/dL AST 20 (14-36) U/L ALT 21 (7-56) U/L Alkaline Phosphatase 47 (38-126) U/L Total Protein 5.3 L (5.8-8.3) g/dL Albumin 2.5 L (3.0-4.8) g/dL Globulin 2.8 gm/dL Albumin/Globulin Ratio 0.9 L (1.1-1.8) Blood Type Antibody Screen Crossmatch BBK History Checked 09/15/18 09/14/18 09/14/18 Range/Units 02:07 21:49 21:30 WBC (4.5-11.0) 10^3/uL RBC (3.5-6.1) 10^6/uL Hgb 8.8 L 9.0 L (12.0-16.0) g/dL Hct 29.4 L 30.3 L (36.0-48.0) % MCV (80.0-105.0) fl MCH (25.0-35.0) pg MCHC (31.0-37.0) g/dl RDW (11.5-14.5) % Plt Count (120.0-450.0) 10^3/uL MPV (7.0-11.0) fl Neut % (Auto) (50.0-68.0) % Lymph % (Auto) (22.0-35.0) % [place] % (Auto) (1.0-6.0) % Eos % (Auto) (1.5-5.0) % Baso % (Auto) (0.0-3.0) % Lymph # (Auto) (1.2-3.4) [place] # (Auto) (0.1-0.6) Eos # (Auto) (0.0-0.7) Baso # (Auto) (0.0-2.0) K/mm3 Absolute Neuts (auto) (1.4-6.5) PT (9.4-12.5) SECONDS INR APTT (26.9-38.3) Seconds Sodium (132-148) mmol/L Potassium (3.6-5.0) mmol/L Chloride (98-107) mmol/L Carbon Dioxide (21-33) mmol/L Anion Gap (10-20) BUN (7-21) mg/dL Creatinine (0.7-1.2) mg/dl Est GFR ( Amer) Est GFR (Non-Af Amer) POC Glucose (mg/dL) 169 H (65-110) mg/dL Random Glucose (70-110) mg/dL Calcium (8.4-10.5) mg/dL Phosphorus (2.5-4.5) mg/dL Magnesium (1.7-2.2) mg/dL Total Bilirubin (0.2-1.3) mg/dL Direct Bilirubin (0.0-0.4) mg/dL AST (14-36) U/L ALT (7-56) U/L Alkaline Phosphatase (38-126) U/L Total Protein (5.8-8.3) g/dL Albumin (3.0-4.8) g/dL Globulin gm/dL Albumin/Globulin Ratio (1.1-1.8) Blood Type Antibody Screen Crossmatch BBK History Checked 09/14/18 09/14/18 09/14/18 Range/Units 17:30 17:30 16:55 WBC (4.5-11.0) 10^3/uL RBC (3.5-6.1) 10^6/uL Hgb 9.7 L (12.0-16.0) g/dL Hct 32.9 L (36.0-48.0) % MCV (80.0-105.0) fl MCH (25.0-35.0) pg MCHC (31.0-37.0) g/dl RDW (11.5-14.5) % Plt Count (120.0-450.0) 10^3/uL MPV (7.0-11.0) fl Neut % (Auto) (50.0-68.0) % Lymph % (Auto) (22.0-35.0) % [place] % (Auto) (1.0-6.0) % Eos % (Auto) (1.5-5.0) % Baso % (Auto) (0.0-3.0) % Lymph # (Auto) (1.2-3.4) [place] # (Auto) (0.1-0.6) Eos # (Auto) (0.0-0.7) Baso # (Auto) (0.0-2.0) K/mm3 Absolute Neuts (auto) (1.4-6.5) PT 11.8 (9.4-12.5) SECONDS INR 1.06 APTT 50.9 H (26.9-38.3) Seconds Sodium (132-148) mmol/L Potassium (3.6-5.0) mmol/L Chloride (98-107) mmol/L Carbon Dioxide (21-33) mmol/L Anion Gap (10-20) BUN (7-21) mg/dL Creatinine (0.7-1.2) mg/dl Est GFR ( Amer) Est GFR (Non-Af Amer) POC Glucose (mg/dL) 148 H (65-110) mg/dL Random Glucose (70-110) mg/dL Calcium (8.4-10.5) mg/dL Phosphorus (2.5-4.5) mg/dL Magnesium (1.7-2.2) mg/dL Total Bilirubin (0.2-1.3) mg/dL Direct Bilirubin (0.0-0.4) mg/dL AST (14-36) U/L ALT (7-56) U/L Alkaline Phosphatase (38-126) U/L Total Protein (5.8-8.3) g/dL Albumin (3.0-4.8) g/dL Globulin gm/dL Albumin/Globulin Ratio (1.1-1.8) Blood Type Antibody Screen Crossmatch BBK History Checked 09/14/18 09/14/18 09/12/18 Range/Units 11:50 07:35 12:15 WBC (4.5-11.0) 10^3/uL RBC (3.5-6.1) 10^6/uL Hgb (12.0-16.0) g/dL Hct (36.0-48.0) % MCV (80.0-105.0) fl MCH (25.0-35.0) pg MCHC (31.0-37.0) g/dl RDW (11.5-14.5) % Plt Count (120.0-450.0) 10^3/uL MPV (7.0-11.0) fl Neut % (Auto) (50.0-68.0) % Lymph % (Auto) (22.0-35.0) % [place] % (Auto) (1.0-6.0) % Eos % (Auto) (1.5-5.0) % Baso % (Auto) (0.0-3.0) % Lymph # (Auto) (1.2-3.4) [place] # (Auto) (0.1-0.6) Eos # (Auto) (0.0-0.7) Baso # (Auto) (0.0-2.0) K/mm3 Absolute Neuts (auto) (1.4-6.5) PT (9.4-12.5) SECONDS INR APTT (26.9-38.3) Seconds Sodium (132-148) mmol/L Potassium (3.6-5.0) mmol/L Chloride (98-107) mmol/L Carbon Dioxide (21-33) mmol/L Anion Gap (10-20) BUN (7-21) mg/dL Creatinine (0.7-1.2) mg/dl Est GFR ( Amer) Est GFR (Non-Af Amer) POC Glucose (mg/dL) 108 87 (65-110) mg/dL Random Glucose (70-110) mg/dL Calcium (8.4-10.5) mg/dL Phosphorus (2.5-4.5) mg/dL Magnesium (1.7-2.2) mg/dL Total Bilirubin (0.2-1.3) mg/dL Direct Bilirubin (0.0-0.4) mg/dL AST (14-36) U/L ALT (7-56) U/L Alkaline Phosphatase (38-126) U/L Total Protein (5.8-8.3) g/dL Albumin (3.0-4.8) g/dL Globulin gm/dL Albumin/Globulin Ratio (1.1-1.8) Blood Type O POSITIVE Antibody Screen Negative Crossmatch See Detail BBK History Checked No verified bt Laboratory Results - last 24 hr 09/12/18 09/14/18 09/14/18 12:15 07:35 11:50 WBC RBC Hgb Hct MCV MCH MCHC RDW Plt Count MPV Neut % (Auto) Lymph % (Auto) [place] % (Auto) Eos % (Auto) Baso % (Auto) Lymph # (Auto) [place] # (Auto) Eos # (Auto) Baso # (Auto) Absolute Neuts (auto) PT INR APTT Sodium Potassium Chloride Carbon Dioxide Anion Gap BUN Creatinine Est GFR ( Amer) Est GFR (Non-Af Amer) POC Glucose (mg/dL) 87 108 Random Glucose Calcium Phosphorus Magnesium Total Bilirubin Direct Bilirubin AST ALT Alkaline Phosphatase Total Protein Albumin Globulin Albumin/Globulin Ratio Blood Type O POSITIVE Antibody Screen Negative Crossmatch See Detail BBK History Checked No verified bt 09/14/18 09/14/18 09/14/18 16:55 17:30 17:30 WBC RBC Hgb 9.7 L Hct 32.9 L MCV MCH MCHC RDW Plt Count MPV Neut % (Auto) Lymph % (Auto) [place] % (Auto) Eos % (Auto) Baso % (Auto) Lymph # (Auto) [place] # (Auto) Eos # (Auto) Baso # (Auto) Absolute Neuts (auto) PT 11.8 INR 1.06 APTT 50.9 H Sodium Potassium Chloride Carbon Dioxide Anion Gap BUN Creatinine Est GFR ( Amer) Est GFR (Non-Af Amer) POC Glucose (mg/dL) 148 H Random Glucose Calcium Phosphorus Magnesium Total Bilirubin Direct Bilirubin AST ALT Alkaline Phosphatase Total Protein Albumin Globulin Albumin/Globulin Ratio Blood Type Antibody Screen Crossmatch BBK History Checked 09/14/18 09/14/18 09/15/18 21:30 21:49 02:07 WBC RBC Hgb 9.0 L 8.8 L Hct 30.3 L 29.4 L MCV MCH MCHC RDW Plt Count MPV Neut % (Auto) Lymph % (Auto) [place] % (Auto) Eos % (Auto) Baso % (Auto) Lymph # (Auto) [place] # (Auto) Eos # (Auto) Baso # (Auto) Absolute Neuts (auto) PT INR APTT Sodium Potassium Chloride Carbon Dioxide Anion Gap BUN Creatinine Est GFR ( Amer) Est GFR (Non-Af Amer) POC Glucose (mg/dL) 169 H Random Glucose Calcium Phosphorus Magnesium Total Bilirubin Direct Bilirubin AST ALT Alkaline Phosphatase Total Protein Albumin Globulin Albumin/Globulin Ratio Blood Type Antibody Screen Crossmatch BBK History Checked 09/15/18 09/15/18 09/15/18 05:02 05:02 05:02 WBC 11.5 H RBC 2.92 L Hgb 8.5 L Hct 29.0 L MCV 99.3 MCH 29.1 MCHC 29.3 L RDW 14.4 Plt Count 175 MPV 10.0 Neut % (Auto) 92.5 H Lymph % (Auto) 2.8 L [place] % (Auto) 4.5 Eos % (Auto) 0.1 L Baso % (Auto) 0.1 Lymph # (Auto) 0.3 L [place] # (Auto) 0.5 Eos # (Auto) 0.0 Baso # (Auto) 0.01 Absolute Neuts (auto) 10.67 H PT 11.4 INR 1.01 APTT 24.0 L Sodium 137 Potassium 4.5 Chloride 95 L Carbon Dioxide 37 H Anion Gap 9 L BUN 46 H Creatinine 1.1 Est GFR ( Amer) 59 Est GFR (Non-Af Amer) 49 POC Glucose (mg/dL) Random Glucose 126 H Calcium 8.4 Phosphorus 5.5 H Magnesium 2.2 Total Bilirubin 0.7 Direct Bilirubin 0.4 AST 20 ALT 21 Alkaline Phosphatase 47 Total Protein 5.3 L Albumin 2.5 L Globulin 2.8 Albumin/Globulin Ratio 0.9 L Blood Type Antibody Screen Crossmatch BBK History Checked Critical Care Progress Note - Nutrition Nutrition: Nutrition Category Date Time Status Heart Healthy Diet [DIET] Diets 09/12/18 Lunch Active Attending/Attestation - Attestation I have personally seen and examined this patient.: Yes I have fully participated in the care of the patient.: Yes I have reviewed all pertinent clinical information: Yes Notes (Text): 09/15/18 10:[address] Brink note
[2018-09-11 07:14] LABS: ARTERIAL BLOOD GAS HEMOGLOBIN 13.8 g/dL (11.7-17.4); ARTERIAL BLOOD GAS O2 CAPACITY 18.9 mL/dl (16-24); ARTERIAL BLOOD GAS O2 CONTENT 18.6 ML/dl (15-23); ARTERIAL BLOOD GAS O2 SAT 98.5 % (95-98); ARTERIAL BLOOD GAS PCO2 66 mm/Hg (35-45); ARTERIAL BLOOD GAS PH 7.39 (7.35-7.45)
[2018-09-11] MEDS: MethylPREDNISolone 40 mg Vial IVP SCH ×2 (08:02→20:02)
[2018-09-11] MEDS ORDERED: Magnesium Sulfate 2 gm/50 ml 2 GM/50 ML BAG IVPB ONE ×3 (08:56→11:00)
[2018-09-11] MEDS: Meropenem IV 1 gm in NS 1 GM/50 ML BAG IVPB SCH (09:14)
[2018-09-11] MEDS: POLYETHYLENE GLYCOL 3350 17 GM/Dose PACKET PO SCH ×2 (09:20→18:24)
[2018-09-11] MEDS: Nystatin 100,000 Units/gm Cream(15 gm) TOP SCH ×2 (09:30→18:16)
[2018-09-11] MEDS: VITS A AND D/WHITE PET/LANOLIN 113.4 APPLIC/113.4 G TUBE TP SCH (09:30)
[2018-09-11] MEDS: Ammonium Lactate 12% Cream (140 g) TOP SCH (09:31)
--- NOTE | 2018-09-11 11:11 | CARD ---
APPROVED REPORT Date of service: 09/11/2018 EKG Measurement Heart [id number] <Conclusion> Normal sinus rhythm Nonspecific T wave abnormality Abnormal ECG
--- NOTE | 2018-09-11 11:24 | CON ---
DATE OF CONSULTATION: 09/11/2018 GASTROENTEROLOGY CONSULTATION REQUESTING PHYSICIAN: Dr. Law. HISTORY OF PRESENT ILLNESS: I have been asked to see this 73-year-old female, who was brought to the hospital with respiratory distress requiring intubation in the emergency room. She is currently extubated. I have been asked to see this patient for incidental gallstones found on CT scan. She denies any abdominal pain, nausea, vomiting, jaundice, fevers or chills. PAST MEDICAL HISTORY: Unknown. PAST SURGICAL HISTORY: Unknown. SOCIAL HISTORY: The patient smokes cigarettes, amount known. REVIEW OF SYSTEMS: Fourteen-point review of systems is just notable for shortness of breath. MEDICATIONS AT HOME: Unknown. PHYSICAL EXAMINATION: GENERAL: Elderly female, lying in bed, awake, alert without any obvious shortness of breath. VITAL SIGNS: Reveal a temperature of 98.8, blood pressure 108/55, heart rate of 78. HEENT: Reveals sclerae to be white. Conjunctivae pink. NECK: Supple. CHEST: Reveals distant breath sounds. HEART: Exam reveals a regular rate and rhythm. ABDOMEN: Soft, obese, nontender. No mass. EXTREMITIES: Show no edema. LABORATORY DATA: Reveals a white blood cell count of 8.8, hemoglobin of 12.9. Chemistries reveal a BUN of 50, creatinine 0.9, bicarb of 40. BNP is 1880. AST, ALT, and alk phos were all normal. IMPRESSION: A 73-year-old female, admitted to the hospital with respiratory distress, found to have bilateral pleural effusions, possible pneumonia with an incidental finding of gallstone on CT scan. She is asymptomatic from the gallstone without any abdominal pain. RECOMMENDATIONS: No further GI workup or treatment needed at this time for the gallstone. Colin Howard MD
--- NOTE | 2018-09-11 12:07 | PN ---
DATE: 09/11/2018 SUBJECTIVE: The patient's overnight nurse's notes were reviewed. The patient remained comfortable post extubation. The patient is maintained on dobutamine drip and heparin drip at present. PHYSICAL EXAMINATION: GENERAL: The patient appears to be comfortable. VITAL SIGNS: T-max 98.1, telemetry shows sinus rhythm, heart rate 73 to 77, blood pressure 118/58, respirations 23, O2 sat 92% to 94%. INTAKE AND OUTPUT: Intake 1113, output is 1700. HEENT: Head, normocephalic, atraumatic. [place] conjunctivae, anicteric sclerae. No oropharyngeal lesion. NECK: No neck rigidity. CHEST: Kyphosis. LUNGS: Positive decreased breath sounds at the bases. Positive creps, rhonchi, crackles bilaterally. CARDIOVASCULAR: S1, S2, regular rhythm. Positive systolic murmur at left sternal border, right second intercostal space, left second intercostal space. ABDOMEN: Protuberant, obese. Positive bowel sounds. Positive rash noted under the breast and the groin area. Positive Alonzo catheter. EXTREMITIES: Positive pitting edema. MUSCULOSKELETAL: Elevated body mass index and obesity. GAIT: Could not be tested. NEUROLOGIC: The patient is alert, awake, responsive. Detailed neuro examination is limited because of the patient's present condition. LABORATORY DATA: 09/11/2018 diagnostic pending at this time. Chest x-ray, ABG, repeat labs are pending at this time. IMPRESSION: 1. Acute ventilator-dependent respiratory failure, status post extubation. 2. Acute right-sided multilobar pulmonary embolism. 3. Acute non-ST elevation myocardial infarction. 4. Acute systolic congestive heart failure with left ventricle ejection fraction of 39% and decreased left ventricular systolic function. 5. Pulmonary vascular congestion and congestive heart failure. 6. Bilateral pleural effusion. 7. Possible community-acquired versus healthcare-associated right middle lobe, right lower lobe pneumonia. 8. Cholelithiasis. 9. Constipation. 10. Right ventricular conduction delay. 11. Anterolateral coronary ischemia. 12. Hypoxemia. 13. Acute systolic congestive heart failure with elevated pro-brain natriuretic peptide. 14. Mild protein malnutrition and mild hypoalbuminemia. 15. Hepatomegaly. 16. Hepatic steatosis. 17. Hypovitaminosis D. 18. Grade 1 abnormal relaxation pattern. 19. Right ventricular dilatation and hypokinesis. 20. Severe deconditioning and gait dysfunction. 21. Status post fever. 22. Severe sepsis. 23. Bilateral lower extremity venous stasis. 24. Obesity. 25. New-onset diabetes mellitus with hemoglobin A1c of 6.8. 26. Hyperuricemia. 1. Acute ventilator-dependent respiratory failure. 2. Acute multilobar right-sided pulmonary embolism. 3. Acute exacerbation of chronic obstructive pulmonary disease with hypoxemia. 4. Prerenal kidney injury. 5. New onset early diabetes mellitus. 6. Acute systolic congestive heart failure with elevated ProBNP. 7. Borderline hypomagnesemia. 8. Mild protein malnutrition and hypoalbuminemia. 9. Hypovitaminosis D. 10. Multilobar right lower lobe and right middle lobe pneumonia and pleural effusion. 11. Cholelithiasis. 12. Hepatomegaly. 13. Hepatic steatosis. 14. Possible cardiomyopathy with left ventricular ejection fraction of 39% with decreased left ventricular systolic function. 15. Grade 1 abnormal relaxation pattern. 16. Right ventricular dilatation and hypokinesis. 17. Right ventricular conduction delay. 18. T-wave abnormalities V1-V6. 19. Acute non-ST elevation myocardial infarction with elevated troponin. 20. Bilateral lower extremity venous stasis. 21. Morbid obesity. 22. Active nicotine addiction and dependence. 23. New-onset diabetes mellitus. 1. Acute hypoxic hypercapnic ventilator-dependent respiratory failure. 2. Right lower lobe acute pulmonary embolism. 3. Hypoxemia. 4. Severe sepsis. 5. Acute exacerbation of chronic obstructive pulmonary disease with hypoxemia. 6. Congestive heart failure, most likely right-sided diastolic congestive heart failure. 7. Fever. 8. Possible bilateral multilobar bibasilar pneumonia. 9. Acute rna-PM-[id number] myocardial infarction with elevated troponin of 0.13. 10. Coronary ischemic changes on the EKG. 11. Morbid obesity with diagnosis of active nicotine addiction and dependence. 12. Possible healthcare versus community-acquired multilobar pneumonia. 13. Active nicotine addiction. 14. Status post right internal jugular triple lumen placement. 15. Bilateral pleural effusion. 16. Morbid obesity. 17. Early diabetes mellitus. 18. Right axis deviation. 1. Acute ventilator-dependent respiratory failure. 2. Acute ventilator-dependent hypoxic-hypercarbic respiratory failure. 3. Respiratory acidosis with hypercarbia. 4. Distal right lower lobe and proximal right lower lobe segmental branches pulmonary embolism. 5. Right lower lobe pneumonia, infiltrate atelectasis with right-sided effusion. 6. Bibasilar atelectasis. 7. Cardiomegaly. 8. Possible pulmonary hypertension. 9. Right-sided aortic arch with aberrant left subclavian artery. 10. Left lower lobe atelectasis. 11. Bibasilar pulmonary opacities versus pneumonia. 12. Nonspecific mediastinal lymphadenopathy. 13. Active nicotine addiction and dependence. 14. Right renal atrophic scarring. 15. Right axis deviation. 16. Right ventricular hypertrophy. 17. Possible acute non-ST elevation myocardial infarction with elevated troponin. 18. Questionable sepsis with high-grade fever. 19. Tachycardia. 20. Tachypnea. 21. Hypoxemia. 22. Erythrocytosis with granulocytosis. 23. Elevated d-dimer. 24. Hypercarbia respiratory acidosis. 25. Non-hemolyzed hyperkalemia. 26. Possible new-onset diabetes mellitus. 27. Metabolic alkalosis. 28. Prerenal kidney injury. 29. Acute non-ST elevation myocardial infarction with elevated troponin and abnormal electrocardiogram with right axis deviation, right ventricular hypertrophy, and age indeterminate inferior infarct and possible lateral subendocardial injury. 30. Hyperphosphatemia. 31. Congestive heart failure whether systolic or diastolic with elevated ProBNP. 32. Proteinuria. 33. Bibasilar atelectasis, pneumonia and bilateral pleural effusion. 34. Cardiomegaly. 35. Status post right internal jugular triple-lumen catheter placement. 36. High-grade fever. 37. Right-sided aortic arch. 38. Acute exacerbation of chronic obstructive pulmonary disease. 39. Bibasilar atelectasis, infiltrate and bilateral pleural effusion. 40. Bilateral inguinal area fungal rash. 41. Severe sepsis. 42. Morbid obesity. 43. Bilateral lower extremity venous stasis. 44. Early diabetes mellitus. PLAN: At this time, the patient's lab data and diagnostic data from today will be reviewed once available. Consultations: Cardiology, Pulmonary, Infectious Disease, Podiatry, Surgery, Gastroenterology. The patient is pending a HIDA scan result. We will await surgical and gastroenterological evaluation and recommendation for recommendation about cholelithiasis. The patient's current medications are as per the patient therapeutic intervention or as per the MAR of today. The patient will be considered for starting oral anticoagulation for pulmonary embolism once the patient is more stabilized and upon which the patient's heparin drip will be discontinued. At present, the patient will be followed by all subspecialties, as consulted. Once cleared by all subspecialties, especially Cardiology and Critical Care, the patient will be considered for transfer out of the ICU. The patient will be ordered out of bed to chair, physical therapy, occupational therapy, ambulation therapy once the patient is transferred out of the ICU. The patient's prognosis is guarded. Time spent is more than 35 minutes. Dictated and electronically signed, not read. Manuel Law MD MTDKenji
--- NOTE | 2018-09-11 12:08 | CP.PCM.PN ---
<Ketan Shrestha - Last Filed: 09/11/18 12:03> Subjective - Date & Time of Evaluation Date of Evaluation: 09/11/18 Time of Evaluation: 07:20 - Subjective Subjective: Ketan Shrestha D.O. PGY-3, Internal Medicine Resident, Infectious Disease Progress Note 73 year old female with a PMH of COPD and tobacco abuse who presented to [facility] on 09/08/18 after she was found by her family members laying in her couch for about 3 days. Infectious disease consultation was requested for possible UTI vs BL pnemonia. Patient was seen and examined at bedside. Clinically improved significantly and extubated. A bit more verbal today. Still on BIPAP. Objective - Vital Signs/Intake and Output Vital Signs (last 24 hours): Temp Pulse Resp BP Pulse Ox 98.8 F 78 23 108/55 L 94 L 09/11/18 08:00 09/11/18 08:31 09/11/18 03:59 09/11/18 09:14 09/11/18 03:59 Intake and Output: 09/11/18 09/11/18 06:59 18:59 Intake Total 1433 Output Total 1900 Balance -467 - Medications Medications: Current Medications Acetaminophen (Tylenol 325mg Tab) 650 mg PO Q6 PRN PRN Reason: TEMP>=99.5F Acetaminophen (Tylenol 650 Mg Supp) 650 mg RC Q6H PRN PRN Reason: TEMP>=99.5F Allopurinol (Zyloprim) 100 mg PO DAILY [facility] Last Admin: 09/11/18 09:32 Dose: 100 mg Dextrose (Dextrose 50% Inj) 0 ml IV STAT PRN; Protocol PRN Reason: Hypoglycemia Protocol Doxycycline Hyclate (Doryx) 100 mg PO Q12 [facility]; Protocol Last Admin: 09/11/18 09:16 Dose: 100 mg Ergocalciferol (Drisdol 50,000 Intl Units Cap) 1 cap PO Q7D [facility] Last Admin: 09/10/18 18:32 Dose: 1 cap Furosemide (Lasix) 40 mg IVP DAILY [facility] Heparin Sodium/Sodium Chloride (Heparin 36918 Units/250ml 1/2 Normal Saline) 25,000 units in 250 mls @ 19.922 mls/hr IV .[id number] PRN; Protocol PRN Reason: ADJUST RATE PER PROTOCOL Last Admin: 09/11/18 00:54 Dose: 10 units/kg/hr, 11.068 mls/hr Meropenem (Merrem Iv 1 Gm Premix) 1 gm in 50 mls @ 100 mls/hr IVPB Q12 [facility]; Protocol Stop: 09/17/18 22:01 Last Admin: 09/11/18 09:14 Dose: 100 mls/hr Dextrose (Dextrose 5% In Water 1000 Ml) 1,000 mls @ 0 mls/hr IV .Q0M PRN; Protocol PRN Reason: Hypoglycemia Protocol Dobutamine HCl/Dextrose (Dobutamine/Dextrose 5% 500mg/250ml) 500 mg in 250 mls @ 8.301 mls/hr IV .Q24H PRN; Protocol PRN Reason: TITRATE PER PROTOCOL Last Admin: 09/10/18 23:43 Dose: 2.5 mcg/kg/min, 8.301 mls/hr Insulin Human Lispro (Humalog High) 0 units SC Q6H [facility]; Protocol Last Admin: 09/11/18 07:59 Dose: Not Given Lactic Acid (Lac-Hydrin 12% Cream (140 G)) 0 ea TOP DAILY [facility] Last Admin: 09/11/18 09:31 Dose: 1 applic Levalbuterol HCl (Xopenex) 0.63 mg IH [id number] [facility] Last Admin: 09/11/18 08:29 Dose: 0.63 mg Methylprednisolone (Solu-Medrol) 20 mg IVP Q12H [facility] Last Admin: 09/11/18 08:02 Dose: 20 mg Nicotine (Nicoderm Cq) 1 patch TD DAILY [facility] Last Admin: 09/11/18 09:15 Dose: 1 patch Nystatin (Nystop Topical Powder) 0 gm TOP Q6 [facility] Last Admin: 09/11/18 05:27 Dose: 1 pdr Nystatin (Mycostatin Cream) 0 ea TOP TID [facility] Last Admin: 09/11/18 09:30 Dose: 1 unit Ondansetron HCl (Zofran Inj) 4 mg IVP Q4H PRN PRN Reason: Nausea/Vomiting Pantoprazole Sodium (Protonix Ec Tab) 40 mg PO 0600,1600 [facility] Last Admin: 09/11/18 05:25 Dose: 40 mg Polyethylene Glycol (Miralax) 17 gm PO BID [facility] Last Admin: 09/11/18 09:20 Dose: Not Given - Labs Labs: 09/11/18 05:10 09/11/18 05:10 PT 20.3 SECONDS (9.4-12.5) H 09/11/18 05:10 INR 1.83 09/11/18 05:10 APTT 65.0 Seconds (26.9-38.3) H 09/11/18 05:10 - Constitutional Appears: Chronically Ill, obese elderly female - Head Exam Head Exam: ATRAUMATIC, NORMOCEPHALIC - Eye Exam Eye Exam: EOMI. absent: Scleral icterus - ENT Exam ENT Exam: Mucous Membranes Moist - Neck Exam Additional comments: obese, soft - Respiratory Exam Respiratory Exam: Rhonchi bibasilar - Cardiovascular Exam Cardiovascular Exam: RRR, +S1, +S2 - GI/Abdominal Exam GI & Abdominal Exam: Soft, erythematous lesions along skin folds now with nystatin powder - Extremities Exam Additional comments: chronic stasis changes of BLE slowly improving - Neurological Exam Additional comments: Awake, Alert, Oriented - Skin Skin Exam: Dry, Warm, erythema along skin folds Assessment and Plan - Assessment and Plan (Free Text) Assessment: 73 year old female with a PMH of COPD and tobacco abuse who presented to [facility] on 09/08/18 after she was found by her family members laying in her couch for about 3 days. Infectious disease consultation was requested for possible UTI vs BL pnemonia. Plan: Severe sepsis Acute respiratory failure requiring intubation, now exubated Pulmonary embolism Right and left ventricular dysfunction CAP Pleural effusions Afebile No leukocytosis Continue doxy/merrem day 3 Blood Cultures negative 2/2 day 2 Urine cultures negative MRSA nares negative We will follow with you Patient was seen and examined and case to be discussed with attending physician. Thank you for the pleasure of participating in the care of this interesting patient. <Agapito Rojo - Last Filed: 09/11/18 13:09> Objective - Vital Signs/Intake and Output Vital Signs (last 24 hours): Temp Pulse Resp BP Pulse Ox 98.8 F 68 23 108/55 L 94 L 09/11/18 08:00 09/11/18 12:15 09/11/18 03:59 09/11/18 09:14 09/11/18 03:59 Intake and Output: 03/14/19 03/14/19 06:59 18:59 Intake Total 1433 Output Total 1900 Balance -467 - Medications Medications: Current Medications Acetaminophen (Tylenol 325mg Tab) 650 mg PO Q6 PRN PRN Reason: TEMP>=99.5F Acetaminophen (Tylenol 650 Mg Supp) 650 mg RC Q6H PRN PRN Reason: TEMP>=99.5F Allopurinol (Zyloprim) 100 mg PO DAILY [facility] Last Admin: 09/11/18 09:32 Dose: 100 mg Dextrose (Dextrose 50% Inj) 0 ml IV STAT PRN; Protocol PRN Reason: Hypoglycemia Protocol Doxycycline Hyclate (Doryx) 100 mg PO Q12 [facility]; Protocol Last Admin: 09/11/18 09:16 Dose: 100 mg Ergocalciferol (Drisdol 50,000 Intl Units Cap) 1 cap PO Q7D [facility] Last Admin: 09/10/18 18:32 Dose: 1 cap Furosemide (Lasix) 40 mg IVP DAILY [facility] Heparin Sodium/Sodium Chloride (Heparin 65430 Units/250ml 1/2 Normal Saline) 25,000 units in 250 mls @ 19.922 mls/hr IV .[id number] PRN; Protocol PRN Reason: ADJUST RATE PER PROTOCOL Last Admin: 09/11/18 00:54 Dose: 10 units/kg/hr, 11.068 mls/hr Dextrose (Dextrose 5% In Water 1000 Ml) 1,000 mls @ 0 mls/hr IV .Q0M PRN; Protocol PRN Reason: Hypoglycemia Protocol Dobutamine HCl/Dextrose (Dobutamine/Dextrose 5% 500mg/250ml) 500 mg in 250 mls @ 8.301 mls/hr IV .Q24H PRN; Protocol PRN Reason: TITRATE PER PROTOCOL Last Admin: 09/10/18 23:43 Dose: 2.5 mcg/kg/min, 8.301 mls/hr Insulin Human Lispro (Humalog High) 0 units SC Q6H [facility]; Protocol Last Admin: 09/11/18 07:59 Dose: Not Given Lactic Acid (Lac-Hydrin 12% Cream (140 G)) 0 ea TOP DAILY [facility] Last Admin: 09/11/18 09:31 Dose: 1 applic Levalbuterol HCl (Xopenex) 0.63 mg IH [id number] [facility] Last Admin: 09/11/18 13:04 Dose: 0.63 mg Methylprednisolone (Solu-Medrol) 20 mg IVP Q12H [facility] Last Admin: 09/11/18 08:02 Dose: 20 mg Nicotine (Nicoderm Cq) 1 patch TD DAILY [facility] Last Admin: 09/11/18 09:15 Dose: 1 patch Nystatin (Nystop Topical Powder) 0 gm TOP Q6 [facility] Last Admin: 09/11/18 05:27 Dose: 1 pdr Nystatin (Mycostatin Cream) 0 ea TOP TID [facility] Last Admin: 09/11/18 09:30 Dose: 1 unit Ondansetron HCl (Zofran Inj) 4 mg IVP Q4H PRN PRN Reason: Nausea/Vomiting Pantoprazole Sodium (Protonix Ec Tab) 40 mg PO 0600,1600 [facility] Last Admin: 09/11/18 05:25 Dose: 40 mg Polyethylene Glycol (Miralax) 17 gm PO BID [facility] Last Admin: 09/11/18 09:20 Dose: Not Given - Labs Labs: 09/11/18 05:10 09/11/18 05:10 PT 20.3 SECONDS (9.4-12.5) H 09/11/18 05:10 INR 1.83 09/11/18 05:10 APTT 65.0 Seconds (26.9-38.3) H 09/11/18 05:10 Attending/Attestation - Attestation I have personally seen and examined this patient.: Yes I have fully participated in the care of the patient.: Yes I have reviewed all pertinent clinical information, including history, physical exam and plan: Yes
--- NOTE | 2018-09-11 12:22 | PN ---
DATE: 09/11/2018 SUBJECTIVE: The patient is extubated. She is on a BiPAP. Arterial blood gas revealed marked CO2 retention. PHYSICAL EXAMINATION: GENERAL: The patient is in no acute distress. VITAL SIGNS: Blood pressure 108/55, heart rate is in the 70s. NECK: Negative JVD. LUNGS: Without rales. HEART: S1, S2. EXTREMITIES: Without edema. LABORATORY DATA: Hemoglobin is 12.9. Chemistries, BUN and creatinine 50 and 0.9, glucose is 130. IMPRESSION: 1. Status post respiratory failure. 2. Status post pulmonary embolism. 3. Cardiomyopathy. 4. Diabetes mellitus. 5. Obesity. PLAN: Given these findings, we will maintain the patient on BiPAP. It is a question whether the patient has longstanding CO2 retention as her baseline. Nick Rowley MD
--- NOTE | 2018-09-11 13:04 | RAD ---
Date of service: 09/11/2018 HISTORY: assess congestion COMPARISON: Chest radiograph 09/09/2018 5:25 a.m.. FINDINGS: Right central venous line unchanged. Endotracheal tube not identified suggesting interval extubation. LUNGS: Left hemidiaphragm appears somewhat less well defined suggesting left basilar atelectasis or infiltrate in the interval. Borderline right infrahilar infiltrate. PLEURA: Small pleural effusions not excluded. No definite pneumothorax bilaterally. No right pleural effusion. CARDIOVASCULAR: No aortic atherosclerotic calcification present. Stable cardiomegaly. No pulmonary vascular congestion. OSSEOUS STRUCTURES: No significant abnormalities. VISUALIZED UPPER ABDOMEN: Normal. OTHER FINDINGS: None. IMPRESSION: Interval loss of left hemidiaphragm definition suggest atelectasis or infiltrate. Minimal left pleural effusion not excluded. Limited right infrahilar infiltrate difficult to exclude as well. Stable cardiomegaly. Status post apparent extubation.
--- NOTE | 2018-09-11 13:08 | NM ---
Date of service: 09/11/2018 PROCEDURE: Nuclear Medicine Hepatobiliary Scan HISTORY: cholelithiasis COMPARISON: 09/09/2018 abdominal ultrasound. 09/09/2018 CT abdomen and pelvis. TECHNIQUE: 6.6 mCi of technetium 99m Mebrofenin was administered intravenously. Planar images of the abdomen were obtained at 5 min intervals to 60 mins. Delayed images were also obtained. FINDINGS: LIVER: Timely and homogenous uptake. COMMON BILE DUCT: identified at 15 mins. GALLBLADDER: Not identified at 02:00 hours. SMALL BOWEL: Identified at 30 mins. IMPRESSION: Abnormal hepatobiliary Scan. The cystic duct is occluded, presumptive evidence for acute cholecystitis.
--- NOTE | 2018-09-11 14:19 | CP.PCM.PN ---
<Koffi Daniel Manju - Last Filed: 09/11/18 14:05> Subjective - Date & Time of Evaluation Date of Evaluation: 09/11/18 Time of Evaluation: 07:00 - Subjective Subjective: Medicine progress note (Dr. Law) - Fredy, PGY - 2 Patient seen and examined at bedside. Patient was extubated yesterday. She tolerated BiPAP overnight. She denies any acute complaints. She denies any urinary complaints or any shortness of breath. Objective - Vital Signs/Intake and Output Vital Signs (last 24 hours): Temp Pulse Resp BP Pulse Ox 98.8 F 68 23 133/86 94 L 09/11/18 08:00 09/11/18 12:15 09/11/18 03:59 09/11/18 10:00 09/11/18 03:59 Intake and Output: 09/11/18 09/11/18 06:59 18:59 Intake Total 1433 Output Total 1900 Balance -467 - Medications Medications: Current Medications Acetaminophen (Tylenol 325mg Tab) 650 mg PO Q6 PRN PRN Reason: TEMP>=99.5F Acetaminophen (Tylenol 650 Mg Supp) 650 mg RC Q6H PRN PRN Reason: TEMP>=99.5F Allopurinol (Zyloprim) 100 mg PO DAILY [facility] Last Admin: 09/11/18 09:32 Dose: 100 mg Dextrose (Dextrose 50% Inj) 0 ml IV STAT PRN; Protocol PRN Reason: Hypoglycemia Protocol Doxycycline Hyclate (Doryx) 100 mg PO Q12 [facility]; Protocol Last Admin: 09/11/18 09:16 Dose: 100 mg Ergocalciferol (Drisdol 50,000 Intl Units Cap) 1 cap PO Q7D [facility] Last Admin: 09/10/18 18:32 Dose: 1 cap Furosemide (Lasix) 40 mg IVP DAILY [facility] Last Admin: 09/11/18 10:00 Dose: 40 mg Heparin Sodium/Sodium Chloride (Heparin 05968 Units/250ml 1/2 Normal Saline) 25,000 units in 250 mls @ 19.922 mls/hr IV .[id number] PRN; Protocol PRN Reason: ADJUST RATE PER PROTOCOL Last Admin: 09/11/18 00:54 Dose: 10 units/kg/hr, 11.068 mls/hr Dextrose (Dextrose 5% In Water 1000 Ml) 1,000 mls @ 0 mls/hr IV .Q0M PRN; Protocol PRN Reason: Hypoglycemia Protocol Dobutamine HCl/Dextrose (Dobutamine/Dextrose 5% 500mg/250ml) 500 mg in 250 mls @ 8.301 mls/hr IV .Q24H PRN; Protocol PRN Reason: TITRATE PER PROTOCOL Last Admin: 09/10/18 23:43 Dose: 2.5 mcg/kg/min, 8.301 mls/hr Insulin Human Lispro (Humalog High) 0 units SC Q6H [facility]; Protocol Last Admin: 09/11/18 13:20 Dose: Not Given Lactic Acid (Lac-Hydrin 12% Cream (140 G)) 0 ea TOP DAILY [facility] Last Admin: 09/11/18 09:31 Dose: 1 applic Levalbuterol HCl (Xopenex) 0.63 mg IH [id number] [facility] Last Admin: 09/11/18 13:04 Dose: 0.63 mg Methylprednisolone (Solu-Medrol) 20 mg IVP Q12H [facility] Last Admin: 09/11/18 08:02 Dose: 20 mg Nicotine (Nicoderm Cq) 1 patch TD DAILY [facility] Last Admin: 09/11/18 09:15 Dose: 1 patch Nystatin (Nystop Topical Powder) 0 gm TOP Q6 [facility] Last Admin: 09/11/18 05:27 Dose: 1 pdr Nystatin (Mycostatin Cream) 0 ea TOP TID [facility] Last Admin: 09/11/18 09:30 Dose: 1 unit Ondansetron HCl (Zofran Inj) 4 mg IVP Q4H PRN PRN Reason: Nausea/Vomiting Pantoprazole Sodium (Protonix Ec Tab) 40 mg PO 0600,1600 [facility] Last Admin: 09/11/18 05:25 Dose: 40 mg Polyethylene Glycol (Miralax) 17 gm PO BID [facility] Last Admin: 09/11/18 09:20 Dose: Not Given - Labs Labs: 09/11/18 05:10 09/11/18 05:10 PT 20.3 SECONDS (9.4-12.5) H 09/11/18 05:10 INR 1.83 09/11/18 05:10 APTT 65.0 Seconds (26.9-38.3) H 09/11/18 05:10 - Constitutional Appears: Well - Head Exam Head Exam: ATRAUMATIC, NORMAL INSPECTION, NORMOCEPHALIC - Eye Exam Eye Exam: EOMI, Normal appearance, PERRL Pupil Exam: NORMAL ACCOMODATION, PERRL - ENT Exam ENT Exam: Mucous Membranes Moist, Normal Exam - Neck Exam Neck Exam: Full ROM, Normal Inspection. absent: Lymphadenopathy - Respiratory Exam Respiratory Exam: Clear to Ausculation Bilateral, NORMAL BREATHING PATTERN - Cardiovascular Exam Cardiovascular Exam: REGULAR RHYTHM, +S1, +S2. absent: Murmur - GI/Abdominal Exam GI & Abdominal Exam: Soft, Normal Bowel Sounds. absent: Tenderness - Extremities Exam Extremities Exam: Full ROM, Normal Capillary Refill, Normal Inspection. absent: Joint Swelling, Pedal Edema - Back Exam Back Exam: NORMAL INSPECTION - Neurological Exam Neurological Exam: Alert, Awake, CN II-XII Intact, Normal Gait, Oriented x3 - Psychiatric Exam Psychiatric exam: Normal Affect, Normal Mood - Skin Skin Exam: Dry, Intact, Normal Color, Warm Assessment and Plan - Assessment and Plan (Free Text) Assessment: 73 F with acute AMS, PNA, and acute hypoxic hypercapneic respiratory failure Plan Possible Shock 2/2 Sepsis due to PNA vs UTI and Cardiogenic 2/2 Severe Systolic Dysfunction - Improving Clinically improving; without SIRS criteria - Patient remains on Dobutamine drip Acute Pulmonary Embolism - Continue with heparin drip Acute Hypoxic Hypercapneic Respiratory Failure s/p Extubation - Duonebs PRN - CXR daily, ABG daily - Solumederol - Antibiotics as outlined below - Is not getting fluids right now 2/2 pulm venous congestion, CKD Possible Cholelithiasis/Cholecystitis Surgical team spoke to patient this morning regarding surgical intervention, which patient is denying at this point. HIDA scan showed possible cholecystitis - GI, Surgery consult - No further intervention per GI Acute CHF Exacerbtion - Lasix 40 q12 CKD Stage 3 - Nephro following Proteinuria - Add CAROL-I or ARB once BP is stable off pressors Acute PNA - Continue Merrem, Doxy, Vanc - F/u pancultures Acute Uremia - Monitor HTN - Continue current medical therapy <Manuel Law U - Last Filed: 09/15/18 19:20> Objective - Vital Signs/Intake and Output Vital Signs (last 24 hours): Temp Pulse Resp BP Pulse Ox 98.7 F 77 22 113/81 94 L 03/18/19 16:00 09/15/18 16:00 09/15/18 15:56 09/15/18 15:56 09/15/18 14:56 Intake and Output: 09/15/18 09/16/18 18:59 06:59 Intake Total 1145 Output Total 1276 Balance -131 - Medications Medications: Current Medications Acetaminophen (Tylenol 325mg Tab) 650 mg PO Q6 PRN PRN Reason: TEMP>=99.5F Last Admin: 09/14/18 17:04 Dose: 650 mg Acetaminophen (Tylenol 650 Mg Supp) 650 mg RC Q6H PRN PRN Reason: TEMP>=99.5F Albuterol/Ipratropium (Duoneb 3 Mg/0.5 Mg (3 Ml) Ud) 3 ml IH [id number] [facility] Last Admin: 09/15/18 14:29 Dose: 3 ml Allopurinol (Zyloprim) 100 mg PO DAILY [facility] Last Admin: 09/15/18 09:58 Dose: 100 mg Arformoterol Tartrate (Brovana) 15 mcg IH [id number] [facility] Budesonide (Pulmicort Respules) 0.5 mg IH [id number] [facility] Dextrose (Dextrose 50% Inj) 0 ml IV STAT PRN; Protocol PRN Reason: Hypoglycemia Protocol Ergocalciferol (Drisdol 50,000 Intl Units Cap) 1 cap PO Q7D [facility] Last Admin: 09/10/18 18:32 Dose: 1 cap Dextrose (Dextrose 5% In Water 1000 Ml) 1,000 mls @ 0 mls/hr IV .Q0M PRN; Protocol PRN Reason: Hypoglycemia Protocol Insulin Human Lispro (Humalog High) 0 units SC ACHS [facility]; Protocol Last Admin: 09/15/18 16:48 Dose: Not Given Lactic Acid (Lac-Hydrin 12% Cream (140 G)) 0 ea TOP DAILY [facility] Last Admin: 09/15/18 10:05 Dose: 1 applic Nicotine (Nicoderm Cq) 1 patch TD DAILY [facility] Last Admin: 09/15/18 09:59 Dose: 1 patch Nystatin (Nystop Topical Powder) 0 gm TOP Q6 [facility] Last Admin: 09/15/18 18:23 Dose: 1 pdr Nystatin (Mycostatin Cream) 0 ea TOP TID [facility] Last Admin: 09/15/18 18:24 Dose: 1 unit Ondansetron HCl (Zofran Inj) 4 mg IVP Q4H PRN PRN Reason: Nausea/Vomiting Pantoprazole Sodium (Protonix Ec Tab) 40 mg PO 0600,1600 [facility] Last Admin: 09/15/18 16:48 Dose: 40 mg Polyethylene Glycol (Miralax) 17 gm PO BID [facility] Last Admin: 09/15/18 18:23 Dose: 17 gm Prednisone (Prednisone Tab) 40 mg PO DAILY [facility] Stop: 09/20/18 10:01 - Labs Labs: 09/15/18 17:01 09/15/18 05:02 PT 11.4 SECONDS (9.4-12.5) 09/15/18 05:02 INR 1.01 09/15/18 05:02 APTT 24.0 Seconds (26.9-38.3) L 09/15/18 05:02 Attending/Attestation - Attestation I have personally seen and examined this patient.: Yes I have fully participated in the care of the patient.: Yes I have reviewed all pertinent clinical information, including history, physical exam and plan: Yes Notes (Text): Please see/read my dictated notes.
--- NOTE | 2018-09-11 14:42 | CP.PCM.PN ---
Subjective - Date & Time of Evaluation Date of Evaluation: 09/11/18 Time of Evaluation: 14:40 - Subjective Subjective: Nephrology Consultation Note: Assessment: stable likely CKD 3 with UA 30 prot. renal imaging atrophy scarring Rt kidney and eGFR in 50s COPD/sys CHF exacerbation with PNA, acute PE, DM and sepsis morbid obesity acute on chronic hypercapnic respi failure with renal compensation active smoker hyperkalemia vit d def cholelithiasis Plan No acute need for renal replacement therapy at this time. Hypertension control with meds as ordered. Maintain hemodynamics stable. Avoid hypotension. Patient not on ACEI or ARB at present, consider to add either soon as tolerated by BP Monitor Input/Output, daily weights and renal function with basic metabolic panel continue with loop diuretics added weekly vit D cardiology, pulmonary following Check urine spot protein/creatinine, albumin/creatinine ratio Dose meds/antibiotics for GFR >50 Glycemic control. once stable and acute process resolved, pt will need weight loss, smoking cessation, lifestyle modifications Further work up/management as per primary team Thanks for allowing me to participate in care of your patient. Will follow patient with you. Please call if any Qs. had d/w team Dr David Harrison Office: [phone] Chief Complaint; unable Reason for consult: Acute Kidney Injury HPI: Pt is a 73 F with hx of heavy smoking, no medical follow ups presented with complaints of SOB and respi distress intubated and admitted to ICU. foudn to have CHF exacerbation with PNA, PE, DM and sepsis renal consult for abnormal imaging and renal fxn eval Denies OTC/herbal meds or NSAIDs Noted recent iodinated contrast exposure as CTA. No obvious episodes of low BP. ROS: pt extubated but on high flow NC. feels better. Physical Examination: General Appearance: better appearing on O2 via NC. no acute distress, obese Vitals reviewed and noted as below Head; Atraumatic, normocephalic ENT: normal oral mucosa EYES: Pupils are equal, round and reactive to light accommodation. Eye muscles and extraocular movement intact. Sclera is anicteric. Neck; supple no lymphadenopathy, no thyromegaly or bruit Lungs: Normal respiratory rate/effort. Breath sounds bilateral improving Heart: Normal rate. s1s2 normal. No rub or gallop. Extremities: 1+ edema. No varicose veins Neurological: Patient is awake alert follows commands Skin: Warm and dry. Normal turgor. No rash. Palpitation: Normal elasticity for age Abdomen: Abdomen is soft. Bowel sounds +. There is no abdominal tenderness, no guarding/rigidity no organomegaly Psych: limited insight. MSK: no joint tenderness or swelling. Digits and nails normal, no deformity : kidney or bladder not palpable. smith farrell Labs/imaging reviewed. Past medical history, past surgical history, family history, social history, allergy reviewed and noted as below Family hx: no hx of CKD. Rest non-contributory UA 30 prot. renal imaging atrophy scarring Rt kidney Objective - Vital Signs/Intake and Output Vital Signs (last 24 hours): Temp Pulse Resp BP Pulse Ox 98.8 F 68 23 133/86 94 L 09/11/18 08:00 09/11/18 12:15 09/11/18 03:59 09/11/18 10:00 09/11/18 03:59 Intake and Output: 09/11/18 09/11/18 06:59 18:59 Intake Total 1433 Output Total 1900 Balance -467 - Medications Medications: Current Medications Acetaminophen (Tylenol 325mg Tab) 650 mg PO Q6 PRN PRN Reason: TEMP>=99.5F Acetaminophen (Tylenol 650 Mg Supp) 650 mg RC Q6H PRN PRN Reason: TEMP>=99.5F Allopurinol (Zyloprim) 100 mg PO DAILY [facility] Last Admin: 09/11/18 09:32 Dose: 100 mg Dextrose (Dextrose 50% Inj) 0 ml IV STAT PRN; Protocol PRN Reason: Hypoglycemia Protocol Doxycycline Hyclate (Doryx) 100 mg PO Q12 [facility]; Protocol Last Admin: 09/11/18 09:16 Dose: 100 mg Ergocalciferol (Drisdol 50,000 Intl Units Cap) 1 cap PO Q7D [facility] Last Admin: 09/10/18 18:32 Dose: 1 cap Furosemide (Lasix) 40 mg IVP DAILY [facility] Last Admin: 09/11/18 10:00 Dose: 40 mg Heparin Sodium/Sodium Chloride (Heparin 32703 Units/250ml 1/2 Normal Saline) 25,000 units in 250 mls @ 19.922 mls/hr IV .[id number] PRN; Protocol PRN Reason: ADJUST RATE PER PROTOCOL Last Admin: 09/11/18 00:54 Dose: 10 units/kg/hr, 11.068 mls/hr Dextrose (Dextrose 5% In Water 1000 Ml) 1,000 mls @ 0 mls/hr IV .Q0M PRN; Protocol PRN Reason: Hypoglycemia Protocol Dobutamine HCl/Dextrose (Dobutamine/Dextrose 5% 500mg/250ml) 500 mg in 250 mls @ 8.301 mls/hr IV .Q24H PRN; Protocol PRN Reason: TITRATE PER PROTOCOL Last Admin: 09/10/18 23:43 Dose: 2.5 mcg/kg/min, 8.301 mls/hr Insulin Human Lispro (Humalog High) 0 units SC Q6H [facility]; Protocol Last Admin: 09/11/18 13:20 Dose: Not Given Lactic Acid (Lac-Hydrin 12% Cream (140 G)) 0 ea TOP DAILY [facility] Last Admin: 09/11/18 09:31 Dose: 1 applic Levalbuterol HCl (Xopenex) 0.63 mg IH [id number] [facility] Last Admin: 09/11/18 13:04 Dose: 0.63 mg Methylprednisolone (Solu-Medrol) 20 mg IVP Q12H [facility] Last Admin: 09/11/18 08:02 Dose: 20 mg Nicotine (Nicoderm Cq) 1 patch TD DAILY [facility] Last Admin: 09/11/18 09:15 Dose: 1 patch Nystatin (Nystop Topical Powder) 0 gm TOP Q6 [facility] Last Admin: 09/11/18 05:27 Dose: 1 pdr Nystatin (Mycostatin Cream) 0 ea TOP TID [facility] Last Admin: 09/11/18 09:30 Dose: 1 unit Ondansetron HCl (Zofran Inj) 4 mg IVP Q4H PRN PRN Reason: Nausea/Vomiting Pantoprazole Sodium (Protonix Ec Tab) 40 mg PO 0600,1600 [facility] Last Admin: 09/11/18 05:25 Dose: 40 mg Polyethylene Glycol (Miralax) 17 gm PO BID [facility] Last Admin: 09/11/18 09:20 Dose: Not Given - Labs Labs: 09/11/18 05:10 09/11/18 05:10 PT 20.3 SECONDS (9.4-12.5) H 09/11/18 05:10 INR 1.83 09/11/18 05:10 APTT 65.0 Seconds (26.9-38.3) H 09/11/18 05:10
[2018-09-11 17:18] LABS: ARTERIAL BLOOD GAS HCO3 44.8 mmol/L (21-28); ARTERIAL BLOOD GAS HEMOGLOBIN 12.1 g/dL (11.7-17.4); ARTERIAL BLOOD GAS O2 CAPACITY 16.5 mL/dl (16-24); ARTERIAL BLOOD GAS O2 CONTENT 15.6 ML/dl (15-23); ARTERIAL BLOOD GAS O2 SAT 94.4 % (95-98); ARTERIAL BLOOD GAS PCO2 66 mm/Hg (35-45); ARTERIAL BLOOD GAS PH 7.44 (7.35-7.45); ARTERIAL BLOOD GAS TCO2 46.8 mmol.L (22-28)
--- NOTE | 2018-09-11 19:40 | PN ---
DATE: 09/11/2018 SUBJECTIVE: The patient was seen and examined at bedside. She is comfortable. She looks much better. She reports feeling and breathing subjectively better. The patient is on high-flow oxygen with FIO2 60% and flow 55 liters per minute. PHYSICAL EXAMINATION: GENERAL: The patient is on dobutamine 2.5 mcg/kg per minute. VITAL SIGNS: On that setting, her oxygen saturation 94%, her respiratory rate 20-25, heart rate 94 regular, blood pressure 99/64 with mean arterial pressure of 75. ENT: Head and neck atraumatic. There is a right IJ CVC present. LUNGS: Clear to auscultation bilaterally. HEART: Regular rate and rhythm. S1 and S2 normal. ABDOMEN: Soft, nontender, nondistended. MUSCULOSKELETAL: The cellulitis in the right lower extremity has substantially improved. Some "wrinkling" and erythema subsided. large hematoma in the back of left thigh-->CT hip and thigh ordered SKIN: Moist. PSYCH: The patient is alert, awake and oriented, comfortable. NEURO: The patient moves all extremities spontaneously. LABORATORY DATA: Chest x-ray showed interval loss of left hemidiaphragm definition suggesting atelectasis and infiltrate. Minimal left pleural effusion not excluded, limited right infrahilar infiltrate difficult to exclude as well, stable cardiomegaly. WBC 8.8, hemoglobin 12.9, platelet count 218. Sodium 141, potassium 4.5, chloride 96, carbon dioxide 40, BUN 50, creatinine 0.9 down from 1, glucose 112, AST 29, ALT 23 and direct bilirubin 0.5. ProBNP down to 1880 from 4619. PTT today is 65. The patient is on heparin drip. MEDICATIONS: Tylenol p.r.n., allopurinol, dobutamine, doxycycline, Lasix 40 mg IV daily, heparin drip, regular insulin sliding scale high protocol, Xopenex every 6 hours, Solu-Medrol 20 mg IV every 12 hours, nicotine patch, Protonix, Zofran p.r.n. ASSESSMENT AND PLAN: This is 73-year-old lady who presented to ICU with biventricular failure thought to be secondary to combination of factors including pulmonary embolism likely superimposed on underlying primary and secondary (cor pulmonale due to COPD) cardiac disease. Cardiology Service is following the patient as well. The patient is on Lasix and therapeutic anticoagulation with heparin. It appears that she has substantially improved clinically with weaning off noninvasive positive pressure ventilation after initial extubation. Patient's FIO2 also titrated down in this regard as well. No plan for percutaneous coronary intervention or cardiac catheterization at present time. We will continue with conservative fluid and oxygen management. We will try to get the patient out of bed to chair, physical therapy. The patient tolerates oral nutrition and hydration well. We will discuss with cardiology service when and whether to stop dobutamine. Once it is done, beta-blockers as well as CAROL inhibitors for afterload reduction will be considered. Large hematoma in the back of left thigh-->CT ordered. whether to continue or not heparin will be decided based on serial Hb, CT findings and whether hemodynamics remains relatively stable ccm time 40 min Byron Brink MD SH[facility]
[2018-09-11 20:17] LABS: SOURCE SERUM
[2018-09-12] MEDS: Nystatin 100,000 Units/gm Topical Pow(15 gm) TOP SCH ×4 (00:24→18:04)
[2018-09-12] MEDS: Levalbuterol 0.63 MG/3 ML Inhal Soln UD IH SCH ×4 (01:23→20:00)
[2018-09-12] MEDS: Pantoprazole 40 mg EC Tab PO SCH ×2 (05:48→18:03)
[2018-09-12 06:22] LABS: HEMOGLOBIN 11.4 g/dL (12.0-16.0); LYMPH # 0.3 (1.2-3.4); LYMPH % 3.7 % (22.0-35.0); MEAN CELL VOLUME 97.2 fl (80.0-105.0); MEAN CORPUSCULAR HEMOGLOBIN 29.1 pg (25.0-35.0); MEAN CORPUSCULAR HGB CONC 29.9 g/dl (31.0-37.0); MEAN PLATELET VOLUME 9.9 fl (7.0-11.0); MONO # 0.8 (0.1-0.6); PLATELET COUNT 219 10^3/uL (120.0-450.0); RBC 3.92 10^6/uL (3.5-6.1); RED CELL DISTRIBUTION WIDTH 14.8 % (11.5-14.5); WHITE BLOOD COUNT 9.1 10^3/uL (4.5-11.0)
[2018-09-12 06:26] LABS: INR 1.19; PARTIAL THROMBOPLASTIN TIME 64.7 Seconds (26.9-38.3); PROTHROMBIN TIME 13.5 SECONDS (9.4-12.5)
[2018-09-12 06:41] LABS: B-TYPE NATRIURETIC PEPTIDE 1200 pg/mL (0-450)
[2018-09-12 07:15] LABS: ALBUMIN 2.5 g/dL (3.0-4.8); ALT/SGPT 19 U/L (7-56); AST/SGOT 38 U/L (14-36); BILIRUBIN,DIRECT 0.5 mg/dL (0.0-0.4); BLOOD UREA NITROGEN 41 mg/dL (7-21); GFR NON-AFRICAN AMERICAN > 60
[2018-09-12] MEDS: Insulin Lispro (HUMAlog) HIGH Coverage SC SCH ×4 (07:30→21:44)
--- NOTE | 2018-09-12 07:50 | CT ---
Date of service: 09/11/2018 PROCEDURE: HISTORY: L thigh hematoma COMPARISON: TECHNIQUE: FINDINGS: No fracture dislocation is observed. There is a large heterogeneous collection in the adductor yon muscle of the posterior medial left thigh. Throughout most of its longitudinal length it is compatible with an intramuscular hematoma. This measures roughly 25 x 9 x 9 centimeters. IMPRESSION: Large posterior medial thigh hematoma as discussed above.
[2018-09-12 08:17] LABS: LYMPHOCYTE 6 % (22.0-35.0); MONOCYTE 2 % (1.0-6.0); NEUTROPHIL 92 % (50.0-70.0); PLATELET ESTIMATE NORMAL (NORMAL)
--- NOTE | 2018-09-12 08:27 | CP.CCUPN ---
<Christopher Crockett - Last Filed: 09/12/18 12:31> CCU Subjective - Physician Review Subjective (Free Text): Christopher Crockett DO. Critical Care Progress note Patient seen and examined at bedside. She is awake, oriented in NAD. She has been on BiPAP overnight with no acute events now switched to high flow. Denied CP, SOB, palpitations CCU Objective - Vital Signs / Intake & Output Intake and Output (Last 8hrs): Intake & Output 09/11/18 09/12/18 09/12/18 22:59 06:59 14:59 Intake Total 1140 531 Output Total 1999 700 Balance -860 -169 Weight 241 lb 4.8 oz Intake: IV 590 231 antibiotics 200 dobutamine 99 heparin 140 132 Oral 550 300 Output: Urine 1999 700 Urethral (Alonzo) 1999 700 Stool 0 - Physical Exam Head: Positive for: Atraumatic, Normocephalic Conjunctiva: Positive for: Normal, Other Mouth: Positive for: Dry Nose (Internal): Positive for: Normal Inspection Neck: Positive for: Trachea Midline. Negative for: JVD, Bruit Respiratory/Chest: Positive for: Wheezes (improving), Decreased Breath Sounds Cardiovascular: Positive for: Regular Rate and Rhythm, Normal S1, S2. Negative for: Rub, Gallop Abdomen: Positive for: Normal Bowel Sounds. Negative for: Tenderness, Distention Breast/Axillary: Positive for: Erythema (Erythematous bilateral candidal rash to breast) Lower Extremity: Positive for: Edema (3+ pedal edema bilateral) Neurological: Positive for: GCS=15, Speech Normal Skin: Positive for: Rashes, Erythematous (bilateral candidal rash to groin, hips, abdomen) Psychiatric: Positive for: Oriented x 3, Normal Insight, Normal Concentration - Medications Active Medications: Active Medications Generic Name Dose Route Start Last Admin Trade Name Freq PRN Reason Stop Dose Admin Acetaminophen 650 mg 09/08/18 14:22 Tylenol 325mg Tab PO Q6 PRN TEMP>=99.5F Acetaminophen 650 mg 09/08/18 14:22 Tylenol 650 Mg Supp RC Q6H PRN TEMP>=99.5F Allopurinol 100 mg 09/09/18 10:00 09/11/18 09:32 Zyloprim PO 100 mg DAILY DEANGELO Administration Dextrose 0 ml 09/08/18 22:59 Dextrose 50% Inj IV STAT PRN Hypoglycemia Protocol Protocol Doxycycline Hyclate 100 mg 09/10/18 22:00 09/11/18 21:26 Doryx PO 100 mg Q12 DEANGELO Administration Protocol Ergocalciferol 1 cap 09/10/18 14:30 09/10/18 18:32 Drisdol 50,000 Intl Units Cap PO 1 cap Q7D DEANGELO Administration Furosemide 40 mg 09/11/18 10:00 09/11/18 10:00 Lasix IVP 40 mg DAILY DEANGELO Administration Heparin Sodium/Sodium Chloride 25,000 units in 250 mls @ 19.922 mls/hr 09/08/18 16:40 09/11/18 21:27 Heparin 62198 Units/250ml 1/2 Normal Saline IV 10 units/kg/hr .[id number] PRN 11.068 mls/hr ADJUST RATE PER PROTOCOL Administration Protocol 18 UNITS/KG/HR Dextrose 1,000 mls @ 0 mls/hr 09/08/18 22:59 Dextrose 5% In Water 1000 Ml IV .Q0M PRN Hypoglycemia Protocol Protocol Per Protocol Dobutamine HCl/Dextrose 500 mg in 250 mls @ 8.301 mls/hr 09/09/18 16:30 09/10/18 23:43 Dobutamine/Dextrose 5% 500mg/250ml IV 2.5 mcg/kg/min .Q24H PRN 8.301 mls/hr TITRATE PER PROTOCOL Administration Protocol 2.5 MCG/KG/MIN Insulin Human Lispro 0 units 09/11/18 22:00 09/11/18 22:00 Humalog High SC Not Given ACHS DEANGELO Protocol Lactic Acid 0 ea 09/10/18 10:00 09/11/18 09:31 Lac-Hydrin 12% Cream (140 G) TOP 1 applic DAILY DEANGELO Administration Levalbuterol HCl 0.63 mg 09/08/18 20:00 09/12/18 07:24 Xopenex IH 0.63 mg [id number] DEANGELO Administration Methylprednisolone 20 mg 09/09/18 08:15 09/11/18 20:02 Solu-Medrol IVP 20 mg Q12H DEANGELO Administration Nicotine 1 patch 09/09/18 10:00 09/11/18 09:15 Nicoderm Cq TD 1 patch DAILY DEANGELO Administration Nystatin 0 gm 09/08/18 18:00 09/12/18 05:47 Nystop Topical Powder TOP 1 pdr Q6 DEANGELO Administration Nystatin 0 ea 09/08/18 23:00 09/11/18 18:16 Mycostatin Cream TOP 1 unit TID DEANGELO Administration Ondansetron HCl 4 mg 09/08/18 14:22 Zofran Inj IVP Q4H PRN Nausea/Vomiting Pantoprazole Sodium 40 mg 09/11/18 06:00 09/12/18 05:48 Protonix Ec Tab PO 40 mg 0600,1600 DEANGELO Administration Polyethylene Glycol 17 gm 09/11/18 10:00 09/11/18 18:24 Miralax PO 17 gm BID DEANGELO Administration - Patient Studies Lab Studies: Microbiology Studies 09/08/18 12:30 Blood Culture - Preliminary Blood NO GROWTH AFTER 3 DAYS 09/08/18 12:00 Blood Culture - Preliminary Blood NO GROWTH AFTER 3 DAYS Lab Studies 09/12/18 09/12/18 09/12/18 Range/Units 06:00 06:00 06:00 WBC 9.1 (4.5-11.0) 10^3/uL RBC 3.92 (3.5-6.1) 10^6/uL Hgb 11.4 L (12.0-16.0) g/dL Hct 38.1 (36.0-48.0) % MCV 97.2 (80.0-105.0) fl MCH 29.1 (25.0-35.0) pg MCHC 29.9 L (31.0-37.0) g/dl RDW 14.8 H (11.5-14.5) % Plt Count 219 (120.0-450.0) 10^3/uL MPV 9.9 (7.0-11.0) fl Neut % (Auto) 87.3 H (50.0-68.0) % Lymph % (Auto) 3.7 L (22.0-35.0) % Hardeman % (Auto) 9.0 H (1.0-6.0) % Eos % (Auto) 0.0 L (1.5-5.0) % Baso % (Auto) 0.0 (0.0-3.0) % Lymph # (Auto) 0.3 L (1.2-3.4) Hardeman # (Auto) 0.8 H (0.1-0.6) Eos # (Auto) 0.0 (0.0-0.7) Baso # (Auto) 0.00 (0.0-2.0) K/mm3 Absolute Neuts (auto) 7.93 H (1.4-6.5) Neutrophils % (Manual) 92 H (50.0-70.0) % Lymphocytes % (Manual) 6 L (22.0-35.0) % Monocytes % (Manual) 2 (1.0-6.0) % Platelet Evaluation Normal (NORMAL) PT 13.5 H (9.4-12.5) SECONDS INR 1.19 APTT 64.7 H (26.9-38.3) Seconds pCO2 (35-45) mm/Hg pO2 (80-100) mm/Hg HCO3 (21-28) mmol/L ABG pH (7.35-7.45) ABG Total CO2 (22-28) mmol.L ABG O2 Saturation (95-98) % ABG O2 Content (15-23) ML/dl ABG Base Excess (-2.0-3.0) mmol/L ABG Hemoglobin (11.7-17.4) g/dL ABG Carboxyhemoglobin (0.5-1.5) % POC ABG HHb (Measured) (0-5) % ABG Methemoglobin (0.0-3.0) % ABG O2 Capacity (16-24) mL/dl Hgb O2 Saturation (95.0-98.0) % FiO2 % Crit Value Called To Crit Value Called By Blood Gas Notified Time Sodium 137 (132-148) mmol/L Potassium 5.0 (3.6-5.0) mmol/L Chloride 94 L (98-107) mmol/L Carbon Dioxide 42 H (21-33) mmol/L Anion Gap 6 L (10-20) BUN 41 H (7-21) mg/dL Creatinine 0.7 (0.7-1.2) mg/dl Est GFR ( Amer) > 60 Est GFR (Non-Af Amer) > 60 POC Glucose (mg/dL) (65-110) mg/dL Random Glucose 124 H (70-110) mg/dL Calcium 8.0 L (8.4-10.5) mg/dL Phosphorus 3.5 (2.5-4.5) mg/dL Magnesium 1.9 (1.7-2.2) mg/dL Total Bilirubin 0.6 (0.2-1.3) mg/dL Direct Bilirubin 0.5 H (0.0-0.4) mg/dL AST 38 H D (14-36) U/L ALT 19 (7-56) U/L Alkaline Phosphatase 55 (38-126) U/L NT-Pro-B Natriuret Pep 1200 H (0-450) pg/mL Total Protein 5.2 L (5.8-8.3) g/dL Albumin 2.5 L (3.0-4.8) g/dL Globulin 2.6 gm/dL Albumin/Globulin Ratio 1.0 L (1.1-1.8) Pneumocystis Source S. pneumoniae Antigen 09/11/18 09/11/18 09/11/18 Range/Units 21:27 17:14 15:59 WBC (4.5-11.0) 10^3/uL RBC (3.5-6.1) 10^6/uL Hgb (12.0-16.0) g/dL Hct (36.0-48.0) % MCV (80.0-105.0) fl MCH (25.0-35.0) pg MCHC (31.0-37.0) g/dl RDW (11.5-14.5) % Plt Count (120.0-450.0) 10^3/uL MPV (7.0-11.0) fl Neut % (Auto) (50.0-68.0) % Lymph % (Auto) (22.0-35.0) % Hardeman % (Auto) (1.0-6.0) % Eos % (Auto) (1.5-5.0) % Baso % (Auto) (0.0-3.0) % Lymph # (Auto) (1.2-3.4) Hardeman # (Auto) (0.1-0.6) Eos # (Auto) (0.0-0.7) Baso # (Auto) (0.0-2.0) K/mm3 Absolute Neuts (auto) (1.4-6.5) Neutrophils % (Manual) (50.0-70.0) % Lymphocytes % (Manual) (22.0-35.0) % Monocytes % (Manual) (1.0-6.0) % Platelet Evaluation (NORMAL) PT (9.4-12.5) SECONDS INR APTT (26.9-38.3) Seconds pCO2 66 H (35-45) mm/Hg pO2 65.0 L (80-100) mm/Hg HCO3 44.8 H* (21-28) mmol/L ABG pH 7.44 (7.35-7.45) ABG Total CO2 46.8 H (22-28) mmol.L ABG O2 Saturation 94.4 L (95-98) % ABG O2 Content 15.6 (15-23) ML/dl ABG Base Excess 17.4 H (-2.0-3.0) mmol/L ABG Hemoglobin 12.1 (11.7-17.4) g/dL ABG Carboxyhemoglobin 1.9 H (0.5-1.5) % POC ABG HHb (Measured) 5.4 H (0-5) % ABG Methemoglobin 1.2 (0.0-3.0) % ABG O2 Capacity 16.5 (16-24) mL/dl Hgb O2 Saturation 91.6 L (95.0-98.0) % FiO2 60.0 % Crit Value Called To Emiliano wright Crit Value Called By Rst Blood Gas Notified Time 3540 Sodium (132-148) mmol/L Potassium (3.6-5.0) mmol/L Chloride (98-107) mmol/L Carbon Dioxide (21-33) mmol/L Anion Gap (10-20) BUN (7-21) mg/dL Creatinine (0.7-1.2) mg/dl Est GFR ( Amer) Est GFR (Non-Af Amer) POC Glucose (mg/dL) 125 H 185 H (65-110) mg/dL Random Glucose (70-110) mg/dL Calcium (8.4-10.5) mg/dL Phosphorus (2.5-4.5) mg/dL Magnesium (1.7-2.2) mg/dL Total Bilirubin (0.2-1.3) mg/dL Direct Bilirubin (0.0-0.4) mg/dL AST (14-36) U/L ALT (7-56) U/L Alkaline Phosphatase (38-126) U/L NT-Pro-B Natriuret Pep (0-450) pg/mL Total Protein (5.8-8.3) g/dL Albumin (3.0-4.8) g/dL Globulin gm/dL Albumin/Globulin Ratio (1.1-1.8) Pneumocystis Source S. pneumoniae Antigen 09/11/18 09/09/18 Range/Units 12:02 00:40 WBC (4.5-11.0) 10^3/uL RBC (3.5-6.1) 10^6/uL Hgb (12.0-16.0) g/dL Hct (36.0-48.0) % MCV (80.0-105.0) fl MCH (25.0-35.0) pg MCHC (31.0-37.0) g/dl RDW (11.5-14.5) % Plt Count (120.0-450.0) 10^3/uL MPV (7.0-11.0) fl Neut % (Auto) (50.0-68.0) % Lymph % (Auto) (22.0-35.0) % Hardeman % (Auto) (1.0-6.0) % Eos % (Auto) (1.5-5.0) % Baso % (Auto) (0.0-3.0) % Lymph # (Auto) (1.2-3.4) Hardeman # (Auto) (0.1-0.6) Eos # (Auto) (0.0-0.7) Baso # (Auto) (0.0-2.0) K/mm3 Absolute Neuts (auto) (1.4-6.5) Neutrophils % (Manual) (50.0-70.0) % Lymphocytes % (Manual) (22.0-35.0) % Monocytes % (Manual) (1.0-6.0) % Platelet Evaluation (NORMAL) PT (9.4-12.5) SECONDS INR APTT (26.9-38.3) Seconds pCO2 (35-45) mm/Hg pO2 (80-100) mm/Hg HCO3 (21-28) mmol/L ABG pH (7.35-7.45) ABG Total CO2 (22-28) mmol.L ABG O2 Saturation (95-98) % ABG O2 Content (15-23) ML/dl ABG Base Excess (-2.0-3.0) mmol/L ABG Hemoglobin (11.7-17.4) g/dL ABG Carboxyhemoglobin (0.5-1.5) % POC ABG HHb (Measured) (0-5) % ABG Methemoglobin (0.0-3.0) % ABG O2 Capacity (16-24) mL/dl Hgb O2 Saturation (95.0-98.0) % FiO2 % Crit Value Called To Crit Value Called By Blood Gas Notified Time Sodium (132-148) mmol/L Potassium (3.6-5.0) mmol/L Chloride (98-107) mmol/L Carbon Dioxide (21-33) mmol/L Anion Gap (10-20) BUN (7-21) mg/dL Creatinine (0.7-1.2) mg/dl Est GFR ( Amer) Est GFR (Non-Af Amer) POC Glucose (mg/dL) 112 H (65-110) mg/dL Random Glucose (70-110) mg/dL Calcium (8.4-10.5) mg/dL Phosphorus (2.5-4.5) mg/dL Magnesium (1.7-2.2) mg/dL Total Bilirubin (0.2-1.3) mg/dL Direct Bilirubin (0.0-0.4) mg/dL AST (14-36) U/L ALT (7-56) U/L Alkaline Phosphatase (38-126) U/L NT-Pro-B Natriuret Pep (0-450) pg/mL Total Protein (5.8-8.3) g/dL Albumin (3.0-4.8) g/dL Globulin gm/dL Albumin/Globulin Ratio (1.1-1.8) Pneumocystis Source Serum S. pneumoniae Antigen Not detected Laboratory Results - last 24 hr 09/09/18 09/11/18 09/11/18 00:40 12:02 15:59 WBC RBC Hgb Hct MCV MCH MCHC RDW Plt Count MPV Neut % (Auto) Lymph % (Auto) Hardeman % (Auto) Eos % (Auto) Baso % (Auto) Lymph # (Auto) Hardeman # (Auto) Eos # (Auto) Baso # (Auto) Absolute Neuts (auto) Neutrophils % (Manual) Lymphocytes % (Manual) Monocytes % (Manual) Platelet Evaluation PT INR APTT pCO2 pO2 HCO3 ABG pH ABG Total CO2 ABG O2 Saturation ABG O2 Content ABG Base Excess ABG Hemoglobin ABG Carboxyhemoglobin POC ABG HHb (Measured) ABG Methemoglobin ABG O2 Capacity Hgb O2 Saturation FiO2 Crit Value Called To Crit Value Called By Blood Gas Notified Time Sodium Potassium Chloride Carbon Dioxide Anion Gap BUN Creatinine Est GFR ( Amer) Est GFR (Non-Af Amer) POC Glucose (mg/dL) 112 H 185 H Random Glucose Calcium Phosphorus Magnesium Total Bilirubin Direct Bilirubin AST ALT Alkaline Phosphatase NT-Pro-B Natriuret Pep Total Protein Albumin Globulin Albumin/Globulin Ratio Pneumocystis Source Serum S. pneumoniae Antigen Not detected 09/11/18 09/11/18 09/12/18 17:14 21:27 06:00 WBC 9.1 RBC 3.92 Hgb 11.4 L Hct 38.1 MCV 97.2 MCH 29.1 MCHC 29.9 L RDW 14.8 H Plt Count 219 MPV 9.9 Neut % (Auto) 87.3 H Lymph % (Auto) 3.7 L Hardeman % (Auto) 9.0 H Eos % (Auto) 0.0 L Baso % (Auto) 0.0 Lymph # (Auto) 0.3 L Hardeman # (Auto) 0.8 H Eos # (Auto) 0.0 Baso # (Auto) 0.00 Absolute Neuts (auto) 7.93 H Neutrophils % (Manual) 92 H Lymphocytes % (Manual) 6 L Monocytes % (Manual) 2 Platelet Evaluation Normal PT INR APTT pCO2 66 H pO2 65.0 L HCO3 44.8 H* ABG pH 7.44 ABG Total CO2 46.8 H ABG O2 Saturation 94.4 L ABG O2 Content 15.6 ABG Base Excess 17.4 H ABG Hemoglobin 12.1 ABG Carboxyhemoglobin 1.9 H POC ABG HHb (Measured) 5.4 H ABG Methemoglobin 1.2 ABG O2 Capacity 16.5 Hgb O2 Saturation 91.6 L FiO2 60.0 Crit Value Called To Emiliano wright Crit Value Called By Rst Blood Gas Notified Time 1718 Sodium Potassium Chloride Carbon Dioxide Anion Gap BUN Creatinine Est GFR ( Amer) Est GFR (Non-Af Amer) POC Glucose (mg/dL) 125 H Random Glucose Calcium Phosphorus Magnesium Total Bilirubin Direct Bilirubin AST ALT Alkaline Phosphatase NT-Pro-B Natriuret Pep Total Protein Albumin Globulin Albumin/Globulin Ratio Pneumocystis Source S. pneumoniae Antigen 09/12/18 09/12/18 06:00 06:00 WBC RBC Hgb Hct MCV MCH MCHC RDW Plt Count MPV Neut % (Auto) Lymph % (Auto) Hardeman % (Auto) Eos % (Auto) Baso % (Auto) Lymph # (Auto) Hardeman # (Auto) Eos # (Auto) Baso # (Auto) Absolute Neuts (auto) Neutrophils % (Manual) Lymphocytes % (Manual) Monocytes % (Manual) Platelet Evaluation PT 13.5 H INR 1.19 APTT 64.7 H pCO2 pO2 HCO3 ABG pH ABG Total CO2 ABG O2 Saturation ABG O2 Content ABG Base Excess ABG Hemoglobin ABG Carboxyhemoglobin POC ABG HHb (Measured) ABG Methemoglobin ABG O2 Capacity Hgb O2 Saturation FiO2 Crit Value Called To Crit Value Called By Blood Gas Notified Time Sodium 137 Potassium 5.0 Chloride 94 L Carbon Dioxide 42 H Anion Gap 6 L BUN 41 H Creatinine 0.7 Est GFR ( Amer) > 60 Est GFR (Non-Af Amer) > 60 POC Glucose (mg/dL) Random Glucose 124 H Calcium 8.0 L Phosphorus 3.5 Magnesium 1.9 Total Bilirubin 0.6 Direct Bilirubin 0.5 H AST 38 H D ALT 19 Alkaline Phosphatase 55 NT-Pro-B Natriuret Pep 1200 H Total Protein 5.2 L Albumin 2.5 L Globulin 2.6 Albumin/Globulin Ratio 1.0 L Pneumocystis Source S. pneumoniae Antigen Radiology Impressions: Radiology Impressions Body Scan Nuclear Medicine 09/11/18 09:24 IMPRESSION: Abnormal hepatobiliary Scan. The cystic duct is occluded, presumptive evidence for acute cholecystitis. Chest X-Ray 09/11/18 09:28 IMPRESSION: Interval loss of left hemidiaphragm definition suggest atelectasis or infiltrate. Minimal left pleural effusion not excluded. Limited right infrahilar infiltrate difficult to exclude as well. Stable cardiomegaly. Status post apparent extubation. Lower Extremity CT 09/11/18 16:45 IMPRESSION: Large posterior medial thigh hematoma as discussed above. Fingerstick Blood Sugar Results: 124 Critical Care Progress Note - Nutrition Nutrition: Nutrition Category Date Time Status Liquid Diet [DIET] Diets 09/10/18 Breakfast Ordered Assessment/Plan - Assessment and Plan (Free Text) Assessment: 73 y/o female admitted to ICU for AMS and respiratory distress found to have PE on right lung with possible PNA and biventricular dysfunction in the setting of CHF exacerbation Plan: Neuro: -AAO x3 in NAD -maintain normthermia Cardio: -Echo: moderate to severe LV dysfunction. Right ventricular hypokinesia and strain in the setting of PE -continue dobutamine 2.5 mcg/kg/min -continue lasix 40 mg daily -BNP trending down 16320 to 1880 -trops trending down 0.13 to 0.08 likely due to RV strain in the setting of PE -maintain MAP> 65 -cardiology following Pulm: -resolved acute respiratory failure -on high flow -CT chest: subsegmental right lung PE with small pleural effusion -LE doppler negative for DVT -CT right LE: large psterir lateral hematoma [id number] -d/c heparin drip -IR consulted. consider IVC filter -PTT 184 > 81.3 > 65>64.7 -AB.42/ 63/64/40.9 -started acetaolamide 250 bid for high bicarb, per Dr Harrison -CXR: vascular congestion. possible PNA. Repeat CXR shows improvement -continue solu-medrol 40 daily -continue xopenex q6h deangelo ID: -possible cellulitis on abdominal wall, hip -continue topical nystatin -CPK normal -UCx, MRSA, BCx, sputum Cx negative -legionella negative -f/u strep Ag -low procal -continue meropenem, doxycycline PO -afebrile, no leukocytosis -ID following /Renal: -CKD with proteinurea -UOP 2700 -maintain euvolemia, euglycemia -UDS negative -nephrology following Prophylaxis: Protonix bid SCD Continue ICU management Case reviewed and discussed with attending Dr Gonzales <Murphy Gonzales - Last Filed: 09/12/18 13:20> CCU Objective - Vital Signs / Intake & Output Vital Signs (Last 4 hours): Vital Signs BP 09/12/18 10:11 115/58 L Intake and Output (Last 8hrs): Intake & Output 09/11/18 09/12/18 09/12/18 22:59 06:59 14:59 Intake Total 1140 531 250 Output Total 1999 700 Balance -860 -169 250 Weight 241 lb 4.8 oz Intake: IV 590 231 250 antibiotics 200 dobutamine 99 heparin 140 132 Oral 550 300 Output: Urine 1999 700 Urethral (Alonzo) 1999 700 Stool 0 - Medications Active Medications: Active Medications Generic Name Dose Route Start Last Admin Trade Name Freq PRN Reason Stop Dose Admin Acetaminophen 650 mg 09/08/18 14:22 Tylenol 325mg Tab PO Q6 PRN TEMP>=99.5F Acetaminophen 650 mg 09/08/18 14:22 Tylenol 650 Mg Supp RC Q6H PRN TEMP>=99.5F Acetazolamide 250 mg 09/12/18 10:30 Diamox 250 Mg Tab PO 09/14/18 10:31 BID DEANGELO Allopurinol 100 mg 09/09/18 10:00 09/12/18 10:11 Zyloprim PO 100 mg DAILY DEANGELO Administration Dextrose 0 ml 09/08/18 22:59 Dextrose 50% Inj IV STAT PRN Hypoglycemia Protocol Protocol Doxycycline Hyclate 100 mg 09/10/18 22:00 09/12/18 10:11 Doryx PO 100 mg Q12 DEANGELO Administration Protocol Ergocalciferol 1 cap 09/10/18 14:30 09/10/18 18:32 Drisdol 50,000 Intl Units Cap PO 1 cap Q7D DEANGELO Administration Furosemide 40 mg 09/11/18 10:00 09/12/18 10:11 Lasix IVP 40 mg DAILY DEANGELO Administration Dextrose 1,000 mls @ 0 mls/hr 09/08/18 22:59 Dextrose 5% In Water 1000 Ml IV .Q0M PRN Hypoglycemia Protocol Protocol Per Protocol Dobutamine HCl/Dextrose 500 mg in 250 mls @ 8.301 mls/hr 09/09/18 16:30 09/12/18 10:15 Dobutamine/Dextrose 5% 500mg/250ml IV 2.5 mcg/kg/min .Q24H PRN 8.301 mls/hr TITRATE PER PROTOCOL Administration Protocol 2.5 MCG/KG/MIN Insulin Human Lispro 0 units 09/11/18 22:00 09/12/18 07:30 Humalog High SC Not Given ACHS DEANGELO Protocol Lactic Acid 0 ea 09/10/18 10:00 09/12/18 10:13 Lac-Hydrin 12% Cream (140 G) TOP 1 applic DAILY DEANGELO Administration Levalbuterol HCl 0.63 mg 09/08/18 20:00 09/12/18 07:24 Xopenex IH 0.63 mg [id number] DEANGELO Administration Methylprednisolone 20 mg 09/09/18 08:15 09/12/18 10:12 Solu-Medrol IVP 20 mg Q12H DEANGELO Administration Nicotine 1 patch 09/09/18 10:00 09/12/18 10:11 Nicoderm Cq TD 1 patch DAILY DEANGELO Administration Nystatin 0 gm 09/08/18 18:00 09/12/18 05:47 Nystop Topical Powder TOP 1 pdr Q6 DEANGELO Administration Nystatin 0 ea 09/08/18 23:00 09/12/18 10:14 Mycostatin Cream TOP 1 unit TID DEANGELO Administration Ondansetron HCl 4 mg 09/08/18 14:22 Zofran Inj IVP Q4H PRN Nausea/Vomiting Pantoprazole Sodium 40 mg 09/11/18 06:00 09/12/18 05:48 Protonix Ec Tab PO 40 mg 0600,1600 DEANGELO Administration Polyethylene Glycol 17 gm 09/11/18 10:00 09/12/18 10:11 Miralax PO 17 gm BID DEANGELO Administration - Patient Studies Lab Studies: Microbiology Studies 09/08/18 12:30 Blood Culture - Preliminary Blood NO GROWTH AFTER 4 DAYS 09/08/18 12:00 Blood Culture - Preliminary Blood NO GROWTH AFTER 4 DAYS 09/09/18 22:42 Gram Stain - Final Sputum Induced Sputum Culture - Final NORMAL ORAL DIMITRI Lab Studies 09/12/18 09/12/18 09/12/18 Range/Units 12:15 11:12 10:25 WBC (4.5-11.0) 10^3/uL RBC (3.5-6.1) 10^6/uL Hgb (12.0-16.0) g/dL Hct (36.0-48.0) % MCV (80.0-105.0) fl MCH (25.0-35.0) pg MCHC (31.0-37.0) g/dl RDW (11.5-14.5) % Plt Count (120.0-450.0) 10^3/uL MPV (7.0-11.0) fl Neut % (Auto) (50.0-68.0) % Lymph % (Auto) (22.0-35.0) % Hardeman % (Auto) (1.0-6.0) % Eos % (Auto) (1.5-5.0) % Baso % (Auto) (0.0-3.0) % Lymph # (Auto) (1.2-3.4) Hardeman # (Auto) (0.1-0.6) Eos # (Auto) (0.0-0.7) Baso # (Auto) (0.0-2.0) K/mm3 Absolute Neuts (auto) (1.4-6.5) Neutrophils % (Manual) (50.0-70.0) % Lymphocytes % (Manual) (22.0-35.0) % Monocytes % (Manual) (1.0-6.0) % Platelet Evaluation (NORMAL) PT (9.4-12.5) SECONDS INR APTT (26.9-38.3) Seconds pCO2 63 H (35-45) mm/Hg pO2 64.0 L (80-100) mm/Hg HCO3 40.9 H* (21-28) mmol/L ABG pH 7.42 (7.35-7.45) ABG Total CO2 42.8 H (22-28) mmol.L ABG O2 Saturation 95.1 (95-98) % ABG O2 Content 13.3 L (15-23) ML/dl ABG Base Excess 14.2 H (-2.0-3.0) mmol/L ABG Hemoglobin 10.2 L (11.7-17.4) g/dL ABG Carboxyhemoglobin 2.4 H (0.5-1.5) % POC ABG HHb (Measured) 4.7 (0-5) % ABG Methemoglobin 0.8 (0.0-3.0) % ABG O2 Capacity 14.0 L (16-24) mL/dl Hgb O2 Saturation 92.1 L (95.0-98.0) % FiO2 60.0 % Crit Value Called To Marleny calzada Crit Value Called By Joey leigh Blood Gas Notified Time 1030 Sodium (132-148) mmol/L Potassium (3.6-5.0) mmol/L Chloride (98-107) mmol/L Carbon Dioxide (21-33) mmol/L Anion Gap (10-20) BUN (7-21) mg/dL Creatinine (0.7-1.2) mg/dl Est GFR ( Amer) Est GFR (Non-Af Amer) POC Glucose (mg/dL) 111 H (65-110) mg/dL Random Glucose (70-110) mg/dL Calcium (8.4-10.5) mg/dL Phosphorus (2.5-4.5) mg/dL Magnesium (1.7-2.2) mg/dL Total Bilirubin (0.2-1.3) mg/dL Direct Bilirubin (0.0-0.4) mg/dL AST (14-36) U/L ALT (7-56) U/L Alkaline Phosphatase (38-126) U/L NT-Pro-B Natriuret Pep (0-450) pg/mL Total Protein (5.8-8.3) g/dL Albumin (3.0-4.8) g/dL Globulin gm/dL Albumin/Globulin Ratio (1.1-1.8) Pneumocystis Source S. pneumoniae Antigen Blood Type O POSITIVE Antibody Screen Negative Crossmatch See Detail BBK History Checked No verified bt 09/12/18 09/12/18 09/12/18 Range/Units 08:27 06:00 06:00 WBC (4.5-11.0) 10^3/uL RBC (3.5-6.1) 10^6/uL Hgb (12.0-16.0) g/dL Hct (36.0-48.0) % MCV (80.0-105.0) fl MCH (25.0-35.0) pg MCHC (31.0-37.0) g/dl RDW (11.5-14.5) % Plt Count (120.0-450.0) 10^3/uL MPV (7.0-11.0) fl Neut % (Auto) (50.0-68.0) % Lymph % (Auto) (22.0-35.0) % Hardeman % (Auto) (1.0-6.0) % Eos % (Auto) (1.5-5.0) % Baso % (Auto) (0.0-3.0) % Lymph # (Auto) (1.2-3.4) Hardeman # (Auto) (0.1-0.6) Eos # (Auto) (0.0-0.7) Baso # (Auto) (0.0-2.0) K/mm3 Absolute Neuts (auto) (1.4-6.5) Neutrophils % (Manual) (50.0-70.0) % Lymphocytes % (Manual) (22.0-35.0) % Monocytes % (Manual) (1.0-6.0) % Platelet Evaluation (NORMAL) PT 13.5 H (9.4-12.5) SECONDS INR 1.19 APTT 64.7 H (26.9-38.3) Seconds pCO2 (35-45) mm/Hg pO2 (80-100) mm/Hg HCO3 (21-28) mmol/L ABG pH (7.35-7.45) ABG Total CO2 (22-28) mmol.L ABG O2 Saturation (95-98) % ABG O2 Content (15-23) ML/dl ABG Base Excess (-2.0-3.0) mmol/L ABG Hemoglobin (11.7-17.4) g/dL ABG Carboxyhemoglobin (0.5-1.5) % POC ABG HHb (Measured) (0-5) % ABG Methemoglobin (0.0-3.0) % ABG O2 Capacity (16-24) mL/dl Hgb O2 Saturation (95.0-98.0) % FiO2 % Crit Value Called To Crit Value Called By Blood Gas Notified Time Sodium 137 (132-148) mmol/L Potassium 5.0 (3.6-5.0) mmol/L Chloride 94 L (98-107) mmol/L Carbon Dioxide 42 H (21-33) mmol/L Anion Gap 6 L (10-20) BUN 41 H (7-21) mg/dL Creatinine 0.7 (0.7-1.2) mg/dl Est GFR ( Amer) > 60 Est GFR (Non-Af Amer) > 60 POC Glucose (mg/dL) 137 H (65-110) mg/dL Random Glucose 124 H (70-110) mg/dL Calcium 8.0 L (8.4-10.5) mg/dL Phosphorus 3.5 (2.5-4.5) mg/dL Magnesium 1.9 (1.7-2.2) mg/dL Total Bilirubin 0.6 (0.2-1.3) mg/dL Direct Bilirubin 0.5 H (0.0-0.4) mg/dL AST 38 H D (14-36) U/L ALT 19 (7-56) U/L Alkaline Phosphatase 55 (38-126) U/L NT-Pro-B Natriuret Pep 1200 H (0-450) pg/mL Total Protein 5.2 L (5.8-8.3) g/dL Albumin 2.5 L (3.0-4.8) g/dL Globulin 2.6 gm/dL Albumin/Globulin Ratio 1.0 L (1.1-1.8) Pneumocystis Source S. pneumoniae Antigen Blood Type Antibody Screen Crossmatch BBK History Checked 09/12/18 09/11/18 09/11/18 Range/Units 06:00 21:27 17:14 WBC 9.1 (4.5-11.0) 10^3/uL RBC 3.92 (3.5-6.1) 10^6/uL Hgb 11.4 L (12.0-16.0) g/dL Hct 38.1 (36.0-48.0) % MCV 97.2 (80.0-105.0) fl MCH 29.1 (25.0-35.0) pg MCHC 29.9 L (31.0-37.0) g/dl RDW 14.8 H (11.5-14.5) % Plt Count 219 (120.0-450.0) 10^3/uL MPV 9.9 (7.0-11.0) fl Neut % (Auto) 87.3 H (50.0-68.0) % Lymph % (Auto) 3.7 L (22.0-35.0) % Hardeman % (Auto) 9.0 H (1.0-6.0) % Eos % (Auto) 0.0 L (1.5-5.0) % Baso % (Auto) 0.0 (0.0-3.0) % Lymph # (Auto) 0.3 L (1.2-3.4) Hardeman # (Auto) 0.8 H (0.1-0.6) Eos # (Auto) 0.0 (0.0-0.7) Baso # (Auto) 0.00 (0.0-2.0) K/mm3 Absolute Neuts (auto) 7.93 H (1.4-6.5) Neutrophils % (Manual) 92 H (50.0-70.0) % Lymphocytes % (Manual) 6 L (22.0-35.0) % Monocytes % (Manual) 2 (1.0-6.0) % Platelet Evaluation Normal (NORMAL) PT (9.4-12.5) SECONDS INR APTT (26.9-38.3) Seconds pCO2 66 H (35-45) mm/Hg pO2 65.0 L (80-100) mm/Hg HCO3 44.8 H* (21-28) mmol/L ABG pH 7.44 (7.35-7.45) ABG Total CO2 46.8 H (22-28) mmol.L ABG O2 Saturation 94.4 L (95-98) % ABG O2 Content 15.6 (15-23) ML/dl ABG Base Excess 17.4 H (-2.0-3.0) mmol/L ABG Hemoglobin 12.1 (11.7-17.4) g/dL ABG Carboxyhemoglobin 1.9 H (0.5-1.5) % POC ABG HHb (Measured) 5.4 H (0-5) % ABG Methemoglobin 1.2 (0.0-3.0) % ABG O2 Capacity 16.5 (16-24) mL/dl Hgb O2 Saturation 91.6 L (95.0-98.0) % FiO2 60.0 % Crit Value Called To Emiliano wright Crit Value Called By Rst Blood Gas Notified Time 1718 Sodium (132-148) mmol/L Potassium (3.6-5.0) mmol/L Chloride (98-107) mmol/L Carbon Dioxide (21-33) mmol/L Anion Gap (10-20) BUN (7-21) mg/dL Creatinine (0.7-1.2) mg/dl Est GFR ( Amer) Est GFR (Non-Af Amer) POC Glucose (mg/dL) 125 H (65-110) mg/dL Random Glucose (70-110) mg/dL Calcium (8.4-10.5) mg/dL Phosphorus (2.5-4.5) mg/dL Magnesium (1.7-2.2) mg/dL Total Bilirubin (0.2-1.3) mg/dL Direct Bilirubin (0.0-0.4) mg/dL AST (14-36) U/L ALT (7-56) U/L Alkaline Phosphatase (38-126) U/L NT-Pro-B Natriuret Pep (0-450) pg/mL Total Protein (5.8-8.3) g/dL Albumin (3.0-4.8) g/dL Globulin gm/dL Albumin/Globulin Ratio (1.1-1.8) Pneumocystis Source S. pneumoniae Antigen Blood Type Antibody Screen Crossmatch BBK History Checked 09/11/18 09/09/18 Range/Units 15:59 00:40 WBC (4.5-11.0) 10^3/uL RBC (3.5-6.1) 10^6/uL Hgb (12.0-16.0) g/dL Hct (36.0-48.0) % MCV (80.0-105.0) fl MCH (25.0-35.0) pg MCHC (31.0-37.0) g/dl RDW (11.5-14.5) % Plt Count (120.0-450.0) 10^3/uL MPV (7.0-11.0) fl Neut % (Auto) (50.0-68.0) % Lymph % (Auto) (22.0-35.0) % Hardeman % (Auto) (1.0-6.0) % Eos % (Auto) (1.5-5.0) % Baso % (Auto) (0.0-3.0) % Lymph # (Auto) (1.2-3.4) Hardeman # (Auto) (0.1-0.6) Eos # (Auto) (0.0-0.7) Baso # (Auto) (0.0-2.0) K/mm3 Absolute Neuts (auto) (1.4-6.5) Neutrophils % (Manual) (50.0-70.0) % Lymphocytes % (Manual) (22.0-35.0) % Monocytes % (Manual) (1.0-6.0) % Platelet Evaluation (NORMAL) PT (9.4-12.5) SECONDS INR APTT (26.9-38.3) Seconds pCO2 (35-45) mm/Hg pO2 (80-100) mm/Hg HCO3 (21-28) mmol/L ABG pH (7.35-7.45) ABG Total CO2 (22-28) mmol.L ABG O2 Saturation (95-98) % ABG O2 Content (15-23) ML/dl ABG Base Excess (-2.0-3.0) mmol/L ABG Hemoglobin (11.7-17.4) g/dL ABG Carboxyhemoglobin (0.5-1.5) % POC ABG HHb (Measured) (0-5) % ABG Methemoglobin (0.0-3.0) % ABG O2 Capacity (16-24) mL/dl Hgb O2 Saturation (95.0-98.0) % FiO2 % Crit Value Called To Crit Value Called By Blood Gas Notified Time Sodium (132-148) mmol/L Potassium (3.6-5.0) mmol/L Chloride (98-107) mmol/L Carbon Dioxide (21-33) mmol/L Anion Gap (10-20) BUN (7-21) mg/dL Creatinine (0.7-1.2) mg/dl Est GFR ( Amer) Est GFR (Non-Af Amer) POC Glucose (mg/dL) 185 H (65-110) mg/dL Random Glucose (70-110) mg/dL Calcium (8.4-10.5) mg/dL Phosphorus (2.5-4.5) mg/dL Magnesium (1.7-2.2) mg/dL Total Bilirubin (0.2-1.3) mg/dL Direct Bilirubin (0.0-0.4) mg/dL AST (14-36) U/L ALT (7-56) U/L Alkaline Phosphatase (38-126) U/L NT-Pro-B Natriuret Pep (0-450) pg/mL Total Protein (5.8-8.3) g/dL Albumin (3.0-4.8) g/dL Globulin gm/dL Albumin/Globulin Ratio (1.1-1.8) Pneumocystis Source Serum S. pneumoniae Antigen Not detected Blood Type Antibody Screen Crossmatch BBK History Checked Laboratory Results - last 24 hr 09/09/18 09/11/18 09/11/18 00:40 15:59 17:14 WBC RBC Hgb Hct MCV MCH MCHC RDW Plt Count MPV Neut % (Auto) Lymph % (Auto) Hardeman % (Auto) Eos % (Auto) Baso % (Auto) Lymph # (Auto) Hardeman # (Auto) Eos # (Auto) Baso # (Auto) Absolute Neuts (auto) Neutrophils % (Manual) Lymphocytes % (Manual) Monocytes % (Manual) Platelet Evaluation PT INR APTT pCO2 66 H pO2 65.0 L HCO3 44.8 H* ABG pH 7.44 ABG Total CO2 46.8 H ABG O2 Saturation 94.4 L ABG O2 Content 15.6 ABG Base Excess 17.4 H ABG Hemoglobin 12.1 ABG Carboxyhemoglobin 1.9 H POC ABG HHb (Measured) 5.4 H ABG Methemoglobin 1.2 ABG O2 Capacity 16.5 Hgb O2 Saturation 91.6 L FiO2 60.0 Crit Value Called To Emiliano wright Crit Value Called By Rst Blood Gas Notified Time 1718 Sodium Potassium Chloride Carbon Dioxide Anion Gap BUN Creatinine Est GFR ( Amer) Est GFR (Non-Af Amer) POC Glucose (mg/dL) 185 H Random Glucose Calcium Phosphorus Magnesium Total Bilirubin Direct Bilirubin AST ALT Alkaline Phosphatase NT-Pro-B Natriuret Pep Total Protein Albumin Globulin Albumin/Globulin Ratio Pneumocystis Source Serum S. pneumoniae Antigen Not detected Blood Type Antibody Screen Crossmatch BBK History Checked 09/11/18 09/12/18 09/12/18 21:27 06:00 06:00 WBC 9.1 RBC 3.92 Hgb 11.4 L Hct 38.1 MCV 97.2 MCH 29.1 MCHC 29.9 L RDW 14.8 H Plt Count 219 MPV 9.9 Neut % (Auto) 87.3 H Lymph % (Auto) 3.7 L Hardeman % (Auto) 9.0 H Eos % (Auto) 0.0 L Baso % (Auto) 0.0 Lymph # (Auto) 0.3 L Hardeman # (Auto) 0.8 H Eos # (Auto) 0.0 Baso # (Auto) 0.00 Absolute Neuts (auto) 7.93 H Neutrophils % (Manual) 92 H Lymphocytes % (Manual) 6 L Monocytes % (Manual) 2 Platelet Evaluation Normal PT INR APTT pCO2 pO2 HCO3 ABG pH ABG Total CO2 ABG O2 Saturation ABG O2 Content ABG Base Excess ABG Hemoglobin ABG Carboxyhemoglobin POC ABG HHb (Measured) ABG Methemoglobin ABG O2 Capacity Hgb O2 Saturation FiO2 Crit Value Called To Crit Value Called By Blood Gas Notified Time Sodium 137 Potassium 5.0 Chloride 94 L Carbon Dioxide 42 H Anion Gap 6 L BUN 41 H Creatinine 0.7 Est GFR ( Amer) > 60 Est GFR (Non-Af Amer) > 60 POC Glucose (mg/dL) 125 H Random Glucose 124 H Calcium 8.0 L Phosphorus 3.5 Magnesium 1.9 Total Bilirubin 0.6 Direct Bilirubin 0.5 H AST 38 H D ALT 19 Alkaline Phosphatase 55 NT-Pro-B Natriuret Pep 1200 H Total Protein 5.2 L Albumin 2.5 L Globulin 2.6 Albumin/Globulin Ratio 1.0 L Pneumocystis Source S. pneumoniae Antigen Blood Type Antibody Screen Crossmatch BBK History Checked 09/12/18 09/12/18 09/12/18 06:00 08:27 10:25 WBC RBC Hgb Hct MCV MCH MCHC RDW Plt Count MPV Neut % (Auto) Lymph % (Auto) Hardeman % (Auto) Eos % (Auto) Baso % (Auto) Lymph # (Auto) Hardeman # (Auto) Eos # (Auto) Baso # (Auto) Absolute Neuts (auto) Neutrophils % (Manual) Lymphocytes % (Manual) Monocytes % (Manual) Platelet Evaluation PT 13.5 H INR 1.19 APTT 64.7 H pCO2 63 H pO2 64.0 L HCO3 40.9 H* ABG pH 7.42 ABG Total CO2 42.8 H ABG O2 Saturation 95.1 ABG O2 Content 13.3 L ABG Base Excess 14.2 H ABG Hemoglobin 10.2 L ABG Carboxyhemoglobin 2.4 H POC ABG HHb (Measured) 4.7 ABG Methemoglobin 0.8 ABG O2 Capacity 14.0 L Hgb O2 Saturation 92.1 L FiO2 60.0 Crit Value Called To Marleny calzada Crit Value Called By Joey leigh Blood Gas Notified Time 1030 Sodium Potassium Chloride Carbon Dioxide Anion Gap BUN Creatinine Est GFR ( Amer) Est GFR (Non-Af Amer) POC Glucose (mg/dL) 137 H Random Glucose Calcium Phosphorus Magnesium Total Bilirubin Direct Bilirubin AST ALT Alkaline Phosphatase NT-Pro-B Natriuret Pep Total Protein Albumin Globulin Albumin/Globulin Ratio Pneumocystis Source S. pneumoniae Antigen Blood Type Antibody Screen Crossmatch BBK History Checked 09/12/18 09/12/18 11:12 12:15 WBC RBC Hgb Hct MCV MCH MCHC RDW Plt Count MPV Neut % (Auto) Lymph % (Auto) Hardeman % (Auto) Eos % (Auto) Baso % (Auto) Lymph # (Auto) Hardeman # (Auto) Eos # (Auto) Baso # (Auto) Absolute Neuts (auto) Neutrophils % (Manual) Lymphocytes % (Manual) Monocytes % (Manual) Platelet Evaluation PT INR APTT pCO2 pO2 HCO3 ABG pH ABG Total CO2 ABG O2 Saturation ABG O2 Content ABG Base Excess ABG Hemoglobin ABG Carboxyhemoglobin POC ABG HHb (Measured) ABG Methemoglobin ABG O2 Capacity Hgb O2 Saturation FiO2 Crit Value Called To Crit Value Called By Blood Gas Notified Time Sodium Potassium Chloride Carbon Dioxide Anion Gap BUN Creatinine Est GFR ( Amer) Est GFR (Non-Af Amer) POC Glucose (mg/dL) 111 H Random Glucose Calcium Phosphorus Magnesium Total Bilirubin Direct Bilirubin AST ALT Alkaline Phosphatase NT-Pro-B Natriuret Pep Total Protein Albumin Globulin Albumin/Globulin Ratio Pneumocystis Source S. pneumoniae Antigen Blood Type O POSITIVE Antibody Screen Negative Crossmatch See Detail BBK History Checked No verified bt Radiology Impressions: Radiology Impressions Lower Extremity CT 09/11/18 16:45 IMPRESSION: Large posterior medial thigh hematoma as discussed above. Critical Care Progress Note - Nutrition Nutrition: Nutrition Category Date Time Status Heart Healthy Diet [DIET] Diets 09/12/18 Lunch Active Assessment/Plan - Assessment and Plan (Free Text) Plan: Patient seen and examined on rounds with resident, agree with note with following additions/exceptions: Patient is n73yo female without known PMHx prior presentation, admitted with hyperpcanic, hypoxic resp failure, s/p extubation, PNA, and PE Pt has been on Heparin, now developed thigh hematoma, heparin held for now CUrrently afebrile, HD stable, comfortable in NAD, doing well HH downtrending Surgery consulted Will Likely need IVC filter Anemia PE Hematoma PNA Resp failure Hypoxia COPD Recommend: - supp o2 as needed, goal sat 90%, duonebs PRN, IS - Abx as per ID, cont Merrem, Doxy - BP control - DC IVF - monitor HH - Hold Heparin - Consider an IVC filter, given contraindication to A/C 2/2 hematoma - follow up surgery, IR - GI ppx - DVT ppx - PT eval - Advance diet - Monitor in MICU Critical care time 35 minutes
[2018-09-12] MEDS: POLYETHYLENE GLYCOL 3350 17 GM/Dose PACKET PO SCH ×2 (10:11→18:03)
[2018-09-12] MEDS: MethylPREDNISolone 40 mg Vial IVP SCH ×2 (10:12→19:51)
--- NOTE | 2018-09-12 10:12 | CP.PCM.PN ---
<Ketan Shrestha - Last Filed: 09/12/18 10:08> Subjective - Date & Time of Evaluation Date of Evaluation: 09/12/18 Time of Evaluation: 09:10 - Subjective Subjective: Ketan Shrestha D.O. PGY-3, Internal Medicine Resident, Infectious Disease Progress Note 73 year old female with a PMH of COPD and tobacco abuse who presented to [facility] ER on 09/08/18 after she was found by her family members laying in her couch for about 3 days. Infectious disease consultation was requested for possible UTI vs BL pnemonia. Patient was seen and examined at bedside. Clinically improving everyday. Breathing at times still labored. Objective - Vital Signs/Intake and Output Vital Signs (last 24 hours): Temp Pulse Resp BP Pulse Ox 98.8 F 89 23 115/61 93 L 09/12/18 08:00 09/12/18 08:00 09/12/18 08:00 09/12/18 08:00 09/12/18 08:00 Intake and Output: 09/12/18 09/12/18 06:59 18:59 Intake Total 781 Output Total 700 Balance 81 - Medications Medications: Current Medications Acetaminophen (Tylenol 325mg Tab) 650 mg PO Q6 PRN PRN Reason: TEMP>=99.5F Acetaminophen (Tylenol 650 Mg Supp) 650 mg RC Q6H PRN PRN Reason: TEMP>=99.5F Allopurinol (Zyloprim) 100 mg PO DAILY [facility] Last Admin: 09/11/18 09:32 Dose: 100 mg Dextrose (Dextrose 50% Inj) 0 ml IV STAT PRN; Protocol PRN Reason: Hypoglycemia Protocol Doxycycline Hyclate (Doryx) 100 mg PO Q12 [facility]; Protocol Last Admin: 09/11/18 21:26 Dose: 100 mg Ergocalciferol (Drisdol 50,000 Intl Units Cap) 1 cap PO Q7D [facility] Last Admin: 09/10/18 18:32 Dose: 1 cap Furosemide (Lasix) 40 mg IVP DAILY [facility] Last Admin: 09/11/18 10:00 Dose: 40 mg Dextrose (Dextrose 5% In Water 1000 Ml) 1,000 mls @ 0 mls/hr IV .Q0M PRN; Protocol PRN Reason: Hypoglycemia Protocol Dobutamine HCl/Dextrose (Dobutamine/Dextrose 5% 500mg/250ml) 500 mg in 250 mls @ 8.301 mls/hr IV .Q24H PRN; Protocol PRN Reason: TITRATE PER PROTOCOL Last Admin: 09/10/18 23:43 Dose: 2.5 mcg/kg/min, 8.301 mls/hr Insulin Human Lispro (Humalog High) 0 units SC ACHS [facility]; Protocol Last Admin: 09/11/18 22:00 Dose: Not Given Lactic Acid (Lac-Hydrin 12% Cream (140 G)) 0 ea TOP DAILY [facility] Last Admin: 09/11/18 09:31 Dose: 1 applic Levalbuterol HCl (Xopenex) 0.63 mg IH [id number] [facility] Last Admin: 09/12/18 07:24 Dose: 0.63 mg Methylprednisolone (Solu-Medrol) 20 mg IVP Q12H [facility] Last Admin: 09/11/18 20:02 Dose: 20 mg Nicotine (Nicoderm Cq) 1 patch TD DAILY [facility] Last Admin: 09/11/18 09:15 Dose: 1 patch Nystatin (Nystop Topical Powder) 0 gm TOP Q6 [facility] Last Admin: 09/12/18 05:47 Dose: 1 pdr Nystatin (Mycostatin Cream) 0 ea TOP TID [facility] Last Admin: 09/11/18 18:16 Dose: 1 unit Ondansetron HCl (Zofran Inj) 4 mg IVP Q4H PRN PRN Reason: Nausea/Vomiting Pantoprazole Sodium (Protonix Ec Tab) 40 mg PO 0600,1600 [facility] Last Admin: 09/12/18 05:48 Dose: 40 mg Polyethylene Glycol (Miralax) 17 gm PO BID [facility] Last Admin: 09/11/18 18:24 Dose: 17 gm - Labs Labs: 09/12/18 06:00 09/12/18 06:00 PT 13.5 SECONDS (9.4-12.5) H 09/12/18 06:00 INR 1.19 09/12/18 06:00 APTT 64.7 Seconds (26.9-38.3) H 09/12/18 06:00 - Constitutional Appears: Chronically Ill, obese elderly female - Head Exam Head Exam: ATRAUMATIC, NORMOCEPHALIC - Eye Exam Eye Exam: EOMI. absent: Scleral icterus - ENT Exam ENT Exam: Mucous Membranes Moist - Neck Exam Additional comments: obese, soft - Respiratory Exam Respiratory Exam: Decreased breath sounds - Cardiovascular Exam Cardiovascular Exam: RRR, +S1, +S2 - GI/Abdominal Exam GI & Abdominal Exam: Soft, erythematous skin changes improving - Extremities Exam Additional comments: chronic stasis changes of BLE slowly improving as well - Neurological Exam Additional comments: Awake, Alert, Orientedx3 - Skin Skin Exam: Dry, Warm, erythema along skin folds Assessment and Plan - Assessment and Plan (Free Text) Assessment: 73 year old female with a PMH of COPD and tobacco abuse who presented to [facility] ER on 09/08/18 after she was found by her family members laying in her couch for about 3 days. Infectious disease consultation was requested for possible UTI vs BL pnemonia. Plan: Severe sepsis Acute respiratory failure requiring intubation, now exubated Pulmonary embolism Right and left ventricular dysfunction CAP Pleural effusions Afebile No leukocytosis Continue doxy day 4 Blood Cultures negative 2/2 day 3 Overall, picture most likely of some RV dysfunction due to COPD/smoking, immo bility leading to PE causing LV dysfunction as well leading to presentation, although atypical pneumonia cannot be ruled out and likely has a component of obesity hypoventilation/MARIAM as well Discontinued merrem Medicine Dr. Daniel's note appreciated Nephro Dr. Harrison's note appreciated Cardio Dr. Rowley's note appreciated GI Dr. Fay's note appreciated ICU Dr. Brink's note appreciated We will follow with you Patient was seen and examined and case to be discussed with attending physician. Thank you for the pleasure of participating in the care of this interesting patient. <Agapito Rojo - Last Filed: 09/12/18 12:40> Objective - Vital Signs/Intake and Output Vital Signs (last 24 hours): Temp Pulse Resp BP Pulse Ox 98.8 F 89 23 115/58 L 93 L 09/12/18 08:00 09/12/18 08:00 09/12/18 08:00 09/12/18 10:11 09/12/18 08:00 Intake and Output: 09/12/18 09/12/18 06:59 18:59 Intake Total 781 250 Output Total 700 Balance 81 250 - Medications Medications: Current Medications Acetaminophen (Tylenol 325mg Tab) 650 mg PO Q6 PRN PRN Reason: TEMP>=99.5F Acetaminophen (Tylenol 650 Mg Supp) 650 mg RC Q6H PRN PRN Reason: TEMP>=99.5F Acetazolamide (Diamox 250 Mg Tab) 250 mg PO BID [facility] Stop: 09/14/18 10:31 Allopurinol (Zyloprim) 100 mg PO DAILY [facility] Last Admin: 09/12/18 10:11 Dose: 100 mg Dextrose (Dextrose 50% Inj) 0 ml IV STAT PRN; Protocol PRN Reason: Hypoglycemia Protocol Doxycycline Hyclate (Doryx) 100 mg PO Q12 [facility]; Protocol Last Admin: 09/12/18 10:11 Dose: 100 mg Ergocalciferol (Drisdol 50,000 Intl Units Cap) 1 cap PO Q7D [facility] Last Admin: 09/10/18 18:32 Dose: 1 cap Furosemide (Lasix) 40 mg IVP DAILY [facility] Last Admin: 09/12/18 10:11 Dose: 40 mg Dextrose (Dextrose 5% In Water 1000 Ml) 1,000 mls @ 0 mls/hr IV .Q0M PRN; Protocol PRN Reason: Hypoglycemia Protocol Dobutamine HCl/Dextrose (Dobutamine/Dextrose 5% 500mg/250ml) 500 mg in 250 mls @ 8.301 mls/hr IV .Q24H PRN; Protocol PRN Reason: TITRATE PER PROTOCOL Last Admin: 09/12/18 10:15 Dose: 2.5 mcg/kg/min, 8.301 mls/hr Insulin Human Lispro (Humalog High) 0 units SC ACHS [facility]; Protocol Last Admin: 09/12/18 07:30 Dose: Not Given Lactic Acid (Lac-Hydrin 12% Cream (140 G)) 0 ea TOP DAILY [facility] Last Admin: 09/12/18 10:13 Dose: 1 applic Levalbuterol HCl (Xopenex) 0.63 mg IH [id number] [facility] Last Admin: 09/12/18 07:24 Dose: 0.63 mg Methylprednisolone (Solu-Medrol) 20 mg IVP Q12H [facility] Last Admin: 09/12/18 10:12 Dose: 20 mg Nicotine (Nicoderm Cq) 1 patch TD DAILY [facility] Last Admin: 09/12/18 10:11 Dose: 1 patch Nystatin (Nystop Topical Powder) 0 gm TOP Q6 [facility] Last Admin: 09/12/18 05:47 Dose: 1 pdr Nystatin (Mycostatin Cream) 0 ea TOP TID [facility] Last Admin: 09/12/18 10:14 Dose: 1 unit Ondansetron HCl (Zofran Inj) 4 mg IVP Q4H PRN PRN Reason: Nausea/Vomiting Pantoprazole Sodium (Protonix Ec Tab) 40 mg PO 0600,1600 [facility] Last Admin: 09/12/18 05:48 Dose: 40 mg Polyethylene Glycol (Miralax) 17 gm PO BID [facility] Last Admin: 09/12/18 10:11 Dose: 17 gm - Labs Labs: 09/12/18 06:00 09/12/18 06:00 PT 13.5 SECONDS (9.4-12.5) H 09/12/18 06:00 INR 1.19 09/12/18 06:00 APTT 64.7 Seconds (26.9-38.3) H 09/12/18 06:00 Attending/Attestation - Attestation I have personally seen and examined this patient.: Yes I have fully participated in the care of the patient.: Yes I have reviewed all pertinent clinical information, including history, physical exam and plan: Yes
[2018-09-12] MEDS: Ammonium Lactate 12% Cream (140 g) TOP SCH (10:13)
[2018-09-12] MEDS: VITS A AND D/WHITE PET/LANOLIN 113.4 APPLIC/113.4 G TUBE TP SCH (10:14)
[2018-09-12] MEDS: Nystatin 100,000 Units/gm Cream(15 gm) TOP SCH ×3 (10:14→18:04)
[2018-09-12] MEDS: DOBUTamine 500mg/250ml D5W 500 MG/250 ML BAG IV PRN (10:15)
[2018-09-12 10:30] LABS: ARTERIAL BLOOD GAS HCO3 40.9 mmol/L (21-28); ARTERIAL BLOOD GAS HEMOGLOBIN 10.2 g/dL (11.7-17.4); ARTERIAL BLOOD GAS O2 CONTENT 13.3 ML/dl (15-23); ARTERIAL BLOOD GAS O2 SAT 95.1 % (95-98); ARTERIAL BLOOD GAS PCO2 63 mm/Hg (35-45); ARTERIAL BLOOD GAS PH 7.42 (7.35-7.45); ARTERIAL BLOOD GAS TCO2 42.8 mmol.L (22-28)
--- NOTE | 2018-09-12 10:31 | CP.PCM.PN ---
<Koffi Daniel Manju - Last Filed: 09/12/18 10:20> Subjective - Date & Time of Evaluation Date of Evaluation: 09/12/18 Time of Evaluation: 10:20 - Subjective Subjective: Medicine progress note (Dr. Law) - Fredy, PGY -2 Patient seen and examined at bedside. Patient has severe hematoma on thigh. Heparin drip was stopped by ICU team. Patient has tolerated bipap well, is more communicative. No acute complaints. Objective - Vital Signs/Intake and Output Vital Signs (last 24 hours): Temp Pulse Resp BP Pulse Ox 98.8 F 89 23 115/58 L 93 L 09/12/18 08:00 09/12/18 08:00 09/12/18 08:00 09/12/18 10:11 09/12/18 08:00 Intake and Output: 09/12/18 09/12/18 06:59 18:59 Intake Total 781 250 Output Total 700 Balance 81 250 - Medications Medications: Current Medications Acetaminophen (Tylenol 325mg Tab) 650 mg PO Q6 PRN PRN Reason: TEMP>=99.5F Acetaminophen (Tylenol 650 Mg Supp) 650 mg RC Q6H PRN PRN Reason: TEMP>=99.5F Allopurinol (Zyloprim) 100 mg PO DAILY [facility] Last Admin: 09/12/18 10:11 Dose: 100 mg Dextrose (Dextrose 50% Inj) 0 ml IV STAT PRN; Protocol PRN Reason: Hypoglycemia Protocol Doxycycline Hyclate (Doryx) 100 mg PO Q12 [facility]; Protocol Last Admin: 09/12/18 10:11 Dose: 100 mg Ergocalciferol (Drisdol 50,000 Intl Units Cap) 1 cap PO Q7D [facility] Last Admin: 09/10/18 18:32 Dose: 1 cap Furosemide (Lasix) 40 mg IVP DAILY [facility] Last Admin: 09/12/18 10:11 Dose: 40 mg Dextrose (Dextrose 5% In Water 1000 Ml) 1,000 mls @ 0 mls/hr IV .Q0M PRN; Protocol PRN Reason: Hypoglycemia Protocol Dobutamine HCl/Dextrose (Dobutamine/Dextrose 5% 500mg/250ml) 500 mg in 250 mls @ 8.301 mls/hr IV .Q24H PRN; Protocol PRN Reason: TITRATE PER PROTOCOL Last Admin: 09/12/18 10:15 Dose: 2.5 mcg/kg/min, 8.301 mls/hr Insulin Human Lispro (Humalog High) 0 units SC ACHS [facility]; Protocol Last Admin: 09/12/18 07:30 Dose: Not Given Lactic Acid (Lac-Hydrin 12% Cream (140 G)) 0 ea TOP DAILY [facility] Last Admin: 09/12/18 10:13 Dose: 1 applic Levalbuterol HCl (Xopenex) 0.63 mg IH [id number] [facility] Last Admin: 09/12/18 07:24 Dose: 0.63 mg Methylprednisolone (Solu-Medrol) 20 mg IVP Q12H [facility] Last Admin: 09/12/18 10:12 Dose: 20 mg Nicotine (Nicoderm Cq) 1 patch TD DAILY [facility] Last Admin: 09/12/18 10:11 Dose: 1 patch Nystatin (Nystop Topical Powder) 0 gm TOP Q6 [facility] Last Admin: 09/12/18 05:47 Dose: 1 pdr Nystatin (Mycostatin Cream) 0 ea TOP TID [facility] Last Admin: 09/12/18 10:14 Dose: 1 unit Ondansetron HCl (Zofran Inj) 4 mg IVP Q4H PRN PRN Reason: Nausea/Vomiting Pantoprazole Sodium (Protonix Ec Tab) 40 mg PO 0600,1600 [facility] Last Admin: 09/12/18 05:48 Dose: 40 mg Polyethylene Glycol (Miralax) 17 gm PO BID [facility] Last Admin: 09/12/18 10:11 Dose: 17 gm - Labs Labs: 09/12/18 06:00 09/12/18 06:00 PT 13.5 SECONDS (9.4-12.5) H 09/12/18 06:00 INR 1.19 09/12/18 06:00 APTT 64.7 Seconds (26.9-38.3) H 09/12/18 06:00 - Constitutional Appears: Well - Head Exam Head Exam: ATRAUMATIC, NORMAL INSPECTION, NORMOCEPHALIC - Eye Exam Eye Exam: EOMI, Normal appearance, PERRL Pupil Exam: NORMAL ACCOMODATION, PERRL - ENT Exam ENT Exam: Mucous Membranes Moist, Normal Exam - Neck Exam Neck Exam: Full ROM, Normal Inspection. absent: Lymphadenopathy - Respiratory Exam Respiratory Exam: Clear to Ausculation Bilateral, NORMAL BREATHING PATTERN - Cardiovascular Exam Cardiovascular Exam: REGULAR RHYTHM, +S1, +S2. absent: Murmur - GI/Abdominal Exam GI & Abdominal Exam: Soft, Normal Bowel Sounds. absent: Tenderness - Extremities Exam Extremities Exam: Full ROM, Normal Capillary Refill, Normal Inspection. absent: Joint Swelling, Pedal Edema - Back Exam Back Exam: NORMAL INSPECTION - Neurological Exam Neurological Exam: Alert, Awake, CN II-XII Intact, Normal Gait, Oriented x3 - Psychiatric Exam Psychiatric exam: Normal Affect, Normal Mood - Skin Skin Exam: Dry, Intact, Normal Color, Warm Assessment and Plan - Assessment and Plan (Free Text) Assessment: 73 F with acute AMS, PNA, and acute hypoxic hypercapneic respiratory failure Plan Possible Shock 2/2 Sepsis due to PNA vs UTI and Cardiogenic 2/2 Severe Systolic Dysfunction - Improving Clinically improving; without SIRS criteria - Patient remains on Dobutamine drip - Continue Doxy - Holding heparin drip 2/2 hematoma Acute Pulmonary Embolism - Holding heparin drip 2/2 hematoma Acute Hypoxic Hypercapneic Respiratory Failure s/p Extubation - Duonebs PRN - CXR daily, ABG daily - Solumederol - Antibiotics as outlined below - Is not getting fluids right now 2/2 pulm venous congestion, CKD Possible Cholelithiasis/Cholecystitis Surgical team spoke to patient yesterday morning regarding surgical intervention, which patient is denying at this point. HIDA scan showed possible cholecystitis - GI, Surgery consult - No further intervention per GI Acute CHF Exacerbtion - Lasix 40 daily, changed from q12 because of metabolic alkalosis Acute Thigh Hematoma - Holding heparin drip - Surgery on consult - Possible IVC Filter (?) CKD Stage 3 - Nephro following Proteinuria - Add CAROL-I or ARB once BP is stable off pressors Acute PNA - Continue Merrem, Doxy, Vanc - F/u pancultures Acute Uremia - Monitor HTN - Continue current medical therapy <Manuel Law U - Last Filed: 09/15/18 19:20> Objective - Vital Signs/Intake and Output Vital Signs (last 24 hours): Temp Pulse Resp BP Pulse Ox 98.7 F 77 22 113/81 94 L 09/15/18 16:00 09/15/18 16:00 09/15/18 15:56 09/15/18 15:56 09/15/18 14:56 Intake and Output: 09/15/18 09/16/18 18:59 06:59 Intake Total 1145 Output Total 1276 Balance -131 - Medications Medications: Current Medications Acetaminophen (Tylenol 325mg Tab) 650 mg PO Q6 PRN PRN Reason: TEMP>=99.5F Last Admin: 09/14/18 17:04 Dose: 650 mg Acetaminophen (Tylenol 650 Mg Supp) 650 mg RC Q6H PRN PRN Reason: TEMP>=99.5F Albuterol/Ipratropium (Duoneb 3 Mg/0.5 Mg (3 Ml) Ud) 3 ml IH [id number] [facility] Last Admin: 09/15/18 14:29 Dose: 3 ml Allopurinol (Zyloprim) 100 mg PO DAILY [facility] Last Admin: 09/15/18 09:58 Dose: 100 mg Arformoterol Tartrate (Brovana) 15 mcg IH [id number] [facility] Budesonide (Pulmicort Respules) 0.5 mg IH [id number] [facility] Dextrose (Dextrose 50% Inj) 0 ml IV STAT PRN; Protocol PRN Reason: Hypoglycemia Protocol Ergocalciferol (Drisdol 50,000 Intl Units Cap) 1 cap PO Q7D [facility] Last Admin: 09/10/18 18:32 Dose: 1 cap Dextrose (Dextrose 5% In Water 1000 Ml) 1,000 mls @ 0 mls/hr IV .Q0M PRN; Protocol PRN Reason: Hypoglycemia Protocol Insulin Human Lispro (Humalog High) 0 units SC ACHS [facility]; Protocol Last Admin: 09/15/18 16:48 Dose: Not Given Lactic Acid (Lac-Hydrin 12% Cream (140 G)) 0 ea TOP DAILY [facility] Last Admin: 09/15/18 10:05 Dose: 1 applic Nicotine (Nicoderm Cq) 1 patch TD DAILY [facility] Last Admin: 09/15/18 09:59 Dose: 1 patch Nystatin (Nystop Topical Powder) 0 gm TOP Q6 [facility] Last Admin: 09/15/18 18:23 Dose: 1 pdr Nystatin (Mycostatin Cream) 0 ea TOP TID [facility] Last Admin: 09/15/18 18:24 Dose: 1 unit Ondansetron HCl (Zofran Inj) 4 mg IVP Q4H PRN PRN Reason: Nausea/Vomiting Pantoprazole Sodium (Protonix Ec Tab) 40 mg PO 0600,1600 [facility] Last Admin: 09/15/18 16:48 Dose: 40 mg Polyethylene Glycol (Miralax) 17 gm PO BID [facility] Last Admin: 09/15/18 18:23 Dose: 17 gm Prednisone (Prednisone Tab) 40 mg PO DAILY [facility] Stop: 09/20/18 10:01 - Labs Labs: 09/15/18 17:01 09/15/18 05:02 PT 11.4 SECONDS (9.4-12.5) 09/15/18 05:02 INR 1.01 09/15/18 05:02 APTT 24.0 Seconds (26.9-38.3) L 09/15/18 05:02 Attending/Attestation - Attestation I have personally seen and examined this patient.: Yes I have fully participated in the care of the patient.: Yes I have reviewed all pertinent clinical information, including history, physical exam and plan: Yes Notes (Text): Please see/read my dictated notes.
[2018-09-12] MEDS ORDERED: Heparin25000 units/250ml 1/2NS 25,000 UNITS/250 ML BAG IV PRN (10:58)
--- NOTE | 2018-09-12 12:46 | PN ---
DATE: 09/12/2018 SUBJECTIVE: The patient is in bed. Her pulse oximetry is 91%. PHYSICAL EXAMINATION: VITAL SIGNS: Blood pressure 115/58, heart rate is in the 90s. NECK: Negative JVD. LUNGS: Decreased breath sounds. HEART: Reveal S1, S2. EXTREMITIES: Without change. LABORATORY DATA: Hemoglobin is 11.4. Chemistries, BUN and creatinine is 41 and 0.7. The glucose is 124. Echocardiogram reveals an ejection fraction of 39% with a dilated right ventricle. IMPRESSION: 1. Respiratory failure which is better. 2. Status post pulmonary embolism. 3. Severe chronic obstructive pulmonary disease. 4. Diabetes mellitus. 5. Cardiomyopathy. 6. Obesity. PLAN: Given these findings, the patient has been able to remain off the ventilator. I had a talk with the patient about the need for her to stop smoking. Nick Rowley MD
--- NOTE | 2018-09-12 13:05 | CP.PCM.CON ---
History of Present Illness - History of Present Illness History of Present Illness: General Surgery Consult note for Dr. Lunsford consult for left leg hematoma/ ecchymosis Patient is a 73 F with PMH of . admitted to [facility] for acute CHF exacerbation. Surgery was reconsulted to evaluate posterior leg hematoma formation while of heparin post-PE. Patient states that she has no pain in the leg and is able to move her extremities without pain. she denies any incited incidence for the edema and ecchymosis. she additionally denies HAAS, SOB, CP, abdominal pain, n/v, f/c, and extremity pain/weakness. Review of Systems - Review of Systems All systems: reviewed and no additional remarkable complaints except (as per HPI) Past Patient History - Past Social History Smoking Status: Current Some Days Smoker - CARDIAC Hx Cardiac Disorders: Yes - PULMONARY Hx Respiratory Disorders: Yes Hx Emphysema: Yes - NEUROLOGICAL Hx Neurological Disorder: Yes Other/Comment: feet cold totouch - HEENT Hx HEENT Problems: No - RENAL Hx Chronic Kidney Disease: No - ENDOCRINE/METABOLIC Hx Endocrine Disorders: No - HEMATOLOGICAL/ONCOLOGICAL Hx Blood Disorders: No - INTEGUMENTARY Hx Dermatological Problems: Yes Other/Comment: red skin to chest abd ble and feet, fungal rash to under b/l breasts, pubic area, under abd folds, b/l groin, back, buttocks, sacrum, hips, hard dry heels to feet, dry skin feet - MUSCULOSKELETAL/RHEUMATOLOGICAL Hx Falls: No - GASTROINTESTINAL Hx Gastrointestinal Disorders: Yes (appetite changes, obese) - GENITOURINARY/GYNECOLOGICAL Hx Genitourinary Disorders: Yes Hx Incontinence: Yes - PSYCHIATRIC Hx Depression: No Hx Emotional Abuse: No Hx Physical Abuse: No Hx Substance Use: No - SURGICAL HISTORY Hx Surgeries: No Meds Allergies/Adverse Reactions: Allergies Allergy/AdvReac Type Severity Reaction Status Date / Time No Known Allergies Allergy Verified 09/08/18 11:11 - Medications Medications: Current Medications Acetaminophen (Tylenol 325mg Tab) 650 mg PO Q6 PRN PRN Reason: TEMP>=99.5F Acetaminophen (Tylenol 650 Mg Supp) 650 mg RC Q6H PRN PRN Reason: TEMP>=99.5F Acetazolamide (Diamox 250 Mg Tab) 250 mg PO BID [facility] Stop: 09/14/18 10:31 Allopurinol (Zyloprim) 100 mg PO DAILY [facility] Last Admin: 09/12/18 10:11 Dose: 100 mg Dextrose (Dextrose 50% Inj) 0 ml IV STAT PRN; Protocol PRN Reason: Hypoglycemia Protocol Doxycycline Hyclate (Doryx) 100 mg PO Q12 [facility]; Protocol Last Admin: 09/12/18 10:11 Dose: 100 mg Ergocalciferol (Drisdol 50,000 Intl Units Cap) 1 cap PO Q7D [facility] Last Admin: 09/10/18 18:32 Dose: 1 cap Furosemide (Lasix) 40 mg IVP DAILY [facility] Last Admin: 09/12/18 10:11 Dose: 40 mg Dextrose (Dextrose 5% In Water 1000 Ml) 1,000 mls @ 0 mls/hr IV .Q0M PRN; Protocol PRN Reason: Hypoglycemia Protocol Dobutamine HCl/Dextrose (Dobutamine/Dextrose 5% 500mg/250ml) 500 mg in 250 mls @ 8.301 mls/hr IV .Q24H PRN; Protocol PRN Reason: TITRATE PER PROTOCOL Last Admin: 09/12/18 10:15 Dose: 2.5 mcg/kg/min, 8.301 mls/hr Insulin Human Lispro (Humalog High) 0 units SC ACHS [facility]; Protocol Last Admin: 09/12/18 07:30 Dose: Not Given Lactic Acid (Lac-Hydrin 12% Cream (140 G)) 0 ea TOP DAILY [facility] Last Admin: 09/12/18 10:13 Dose: 1 applic Levalbuterol HCl (Xopenex) 0.63 mg IH [id number] [facility] Last Admin: 09/12/18 07:24 Dose: 0.63 mg Methylprednisolone (Solu-Medrol) 20 mg IVP Q12H [facility] Last Admin: 09/12/18 10:12 Dose: 20 mg Nicotine (Nicoderm Cq) 1 patch TD DAILY [facility] Last Admin: 09/12/18 10:11 Dose: 1 patch Nystatin (Nystop Topical Powder) 0 gm TOP Q6 [facility] Last Admin: 09/12/18 05:47 Dose: 1 pdr Nystatin (Mycostatin Cream) 0 ea TOP TID [facility] Last Admin: 09/12/18 10:14 Dose: 1 unit Ondansetron HCl (Zofran Inj) 4 mg IVP Q4H PRN PRN Reason: Nausea/Vomiting Pantoprazole Sodium (Protonix Ec Tab) 40 mg PO 0600,1600 [facility] Last Admin: 09/12/18 05:48 Dose: 40 mg Polyethylene Glycol (Miralax) 17 gm PO BID [facility] Last Admin: 09/12/18 10:11 Dose: 17 gm Physical Exam - Constitutional Appears: Non-toxic, No Acute Distress, Chronically Ill - Head Exam Head Exam: ATRAUMATIC, NORMOCEPHALIC - Eye Exam Eye Exam: EOMI - ENT Exam ENT Exam: Mucous Membranes Moist - Respiratory Exam Respiratory Exam: NORMAL BREATHING PATTERN - Cardiovascular Exam Cardiovascular Exam: REGULAR RHYTHM - GI/Abdominal Exam GI & Abdominal Exam: Soft. absent: Distended, Guarding, Tenderness - Extremities Exam Extremities exam: Positive for: full ROM, normal capillary refill, pedal edema, pedal pulses present. Negative for: calf tenderness, tenderness Additional comments: no pain with active r passive motion, skin appears normal color other than areas of ecchymosis on posterior leg - Neurological Exam Neurological exam: Alert, Oriented x3 - Psychiatric Exam Psychiatric exam: Normal Affect, Normal Mood - Skin Skin Exam: Dry, Intact, Warm Additional comments: areas of scattered ecchymosis over the dependent areas of the body including the posterior legs, elbows and poterior knee Results - Vital Signs Recent Vital Signs: Last Vital Signs Temp 98.8 F 09/12/18 08:00 Pulse 89 09/12/18 08:00 Resp 23 09/12/18 08:00 BP 115/58 L 09/12/18 10:11 Pulse Ox 93 L 09/12/18 08:00 - Labs Result Diagrams: 09/13/18 05:40 09/13/18 05:40 Labs: Laboratory Results - last 24 hr 09/09/18 09/11/18 09/11/18 00:40 15:59 17:14 WBC RBC Hgb Hct MCV MCH MCHC RDW Plt Count MPV Neut % (Auto) Lymph % (Auto) [place] % (Auto) Eos % (Auto) Baso % (Auto) Lymph # (Auto) [place] # (Auto) Eos # (Auto) Baso # (Auto) Absolute Neuts (auto) Neutrophils % (Manual) Lymphocytes % (Manual) Monocytes % (Manual) Platelet Evaluation PT INR APTT pCO2 66 H pO2 65.0 L HCO3 44.8 H* ABG pH 7.44 ABG Total CO2 46.8 H ABG O2 Saturation 94.4 L ABG O2 Content 15.6 ABG Base Excess 17.4 H ABG Hemoglobin 12.1 ABG Carboxyhemoglobin 1.9 H POC ABG HHb (Measured) 5.4 H ABG Methemoglobin 1.2 ABG O2 Capacity 16.5 Hgb O2 Saturation 91.6 L FiO2 60.0 Crit Value Called To Emiliano wright Crit Value Called By Rst Blood Gas Notified Time 1718 Sodium Potassium Chloride Carbon Dioxide Anion Gap BUN Creatinine Est GFR ( Amer) Est GFR (Non-Af Amer) POC Glucose (mg/dL) 185 H Random Glucose Calcium Phosphorus Magnesium Total Bilirubin Direct Bilirubin AST ALT Alkaline Phosphatase NT-Pro-B Natriuret Pep Total Protein Albumin Globulin Albumin/Globulin Ratio Pneumocystis Source Serum S. pneumoniae Antigen Not detected Crossmatch BBK History Checked 09/11/18 09/12/18 09/12/18 21:27 06:00 06:00 WBC 9.1 RBC 3.92 Hgb 11.4 L Hct 38.1 MCV 97.2 MCH 29.1 MCHC 29.9 L RDW 14.8 H Plt Count 219 MPV 9.9 Neut % (Auto) 87.3 H Lymph % (Auto) 3.7 L [place] % (Auto) 9.0 H Eos % (Auto) 0.0 L Baso % (Auto) 0.0 Lymph # (Auto) 0.3 L [place] # (Auto) 0.8 H Eos # (Auto) 0.0 Baso # (Auto) 0.00 Absolute Neuts (auto) 7.93 H Neutrophils % (Manual) 92 H Lymphocytes % (Manual) 6 L Monocytes % (Manual) 2 Platelet Evaluation Normal PT INR APTT pCO2 pO2 HCO3 ABG pH ABG Total CO2 ABG O2 Saturation ABG O2 Content ABG Base Excess ABG Hemoglobin ABG Carboxyhemoglobin POC ABG HHb (Measured) ABG Methemoglobin ABG O2 Capacity Hgb O2 Saturation FiO2 Crit Value Called To Crit Value Called By Blood Gas Notified Time Sodium 137 Potassium 5.0 Chloride 94 L Carbon Dioxide 42 H Anion Gap 6 L BUN 41 H Creatinine 0.7 Est GFR ( Amer) > 60 Est GFR (Non-Af Amer) > 60 POC Glucose (mg/dL) 125 H Random Glucose 124 H Calcium 8.0 L Phosphorus 3.5 Magnesium 1.9 Total Bilirubin 0.6 Direct Bilirubin 0.5 H AST 38 H D ALT 19 Alkaline Phosphatase 55 NT-Pro-B Natriuret Pep 1200 H Total Protein 5.2 L Albumin 2.5 L Globulin 2.6 Albumin/Globulin Ratio 1.0 L Pneumocystis Source S. pneumoniae Antigen Crossmatch BBK History Checked 09/12/18 09/12/18 09/12/18 06:00 08:27 10:25 WBC RBC Hgb Hct MCV MCH MCHC RDW Plt Count MPV Neut % (Auto) Lymph % (Auto) [place] % (Auto) Eos % (Auto) Baso % (Auto) Lymph # (Auto) [place] # (Auto) Eos # (Auto) Baso # (Auto) Absolute Neuts (auto) Neutrophils % (Manual) Lymphocytes % (Manual) Monocytes % (Manual) Platelet Evaluation PT 13.5 H INR 1.19 APTT 64.7 H pCO2 63 H pO2 64.0 L HCO3 40.9 H* ABG pH 7.42 ABG Total CO2 42.8 H ABG O2 Saturation 95.1 ABG O2 Content 13.3 L ABG Base Excess 14.2 H ABG Hemoglobin 10.2 L ABG Carboxyhemoglobin 2.4 H POC ABG HHb (Measured) 4.7 ABG Methemoglobin 0.8 ABG O2 Capacity 14.0 L Hgb O2 Saturation 92.1 L FiO2 60.0 Crit Value Called To Marleny calzada Crit Value Called By Joey leigh Blood Gas Notified Time 1030 Sodium Potassium Chloride Carbon Dioxide Anion Gap BUN Creatinine Est GFR ( Amer) Est GFR (Non-Af Amer) POC Glucose (mg/dL) 137 H Random Glucose Calcium Phosphorus Magnesium Total Bilirubin Direct Bilirubin AST ALT Alkaline Phosphatase NT-Pro-B Natriuret Pep Total Protein Albumin Globulin Albumin/Globulin Ratio Pneumocystis Source S. pneumoniae Antigen Crossmatch BBK History Checked 09/12/18 09/12/18 11:12 12:15 WBC RBC Hgb Hct MCV MCH MCHC RDW Plt Count MPV Neut % (Auto) Lymph % (Auto) [place] % (Auto) Eos % (Auto) Baso % (Auto) Lymph # (Auto) [place] # (Auto) Eos # (Auto) Baso # (Auto) Absolute Neuts (auto) Neutrophils % (Manual) Lymphocytes % (Manual) Monocytes % (Manual) Platelet Evaluation PT INR APTT pCO2 pO2 HCO3 ABG pH ABG Total CO2 ABG O2 Saturation ABG O2 Content ABG Base Excess ABG Hemoglobin ABG Carboxyhemoglobin POC ABG HHb (Measured) ABG Methemoglobin ABG O2 Capacity Hgb O2 Saturation FiO2 Crit Value Called To Crit Value Called By Blood Gas Notified Time Sodium Potassium Chloride Carbon Dioxide Anion Gap BUN Creatinine Est GFR ( Amer) Est GFR (Non-Af Amer) POC Glucose (mg/dL) 111 H Random Glucose Calcium Phosphorus Magnesium Total Bilirubin Direct Bilirubin AST ALT Alkaline Phosphatase NT-Pro-B Natriuret Pep Total Protein Albumin Globulin Albumin/Globulin Ratio Pneumocystis Source S. pneumoniae Antigen Crossmatch See Detail BBK History Checked No verified bt Assessment & Plan - Assessment and Plan (Free Text) Assessment: 73 yr old female with intramuscular hematoma, recently placed on heparin d/t PE (now held) Plan: - agree with holding heparin at this time - elevate lower extremities for signs of compartment syndrome and enlargement of hematomas - no signs of compartment syndrome at this time - pt seen and examined with Dr. Norwood, further recs per him Elina Arriaza, PGY 1 - Date & Time Date: 09/12/18 Time: 07:05
--- NOTE | 2018-09-12 13:41 | CP.PCM.PN ---
Subjective - Date & Time of Evaluation Date of Evaluation: 09/12/18 Time of Evaluation: 13:40 - Subjective Subjective: Nephrology Consultation Note: Assessment: stable likely CKD 3 with UA 30 prot. renal imaging atrophy scarring Rt kidney and eGFR in 50s COPD/sys CHF exacerbation with PNA, acute PE, DM and sepsis morbid obesity acute on chronic hypercapnic respi failure with renal compensation active smoker hyperkalemia vit d def cholelithiasis Plan No acute need for renal replacement therapy at this time. Hypertension control with meds as ordered. Maintain hemodynamics stable. Avoid hypotension. Patient not on ACEI or ARB at present, consider to add either soon as tolerated by BP Monitor Input/Output, daily weights and renal function with basic metabolic panel continue with loop diuretics. will add diamox to help with metabolic alkalosis added weekly vit D cardiology, pulmonary following Check urine spot protein/creatinine, albumin/creatinine ratio Dose meds/antibiotics for GFR >50 Glycemic control. once stable and acute process resolved, pt will need weight loss, smoking cessation, lifestyle modifications Further work up/management as per primary team Thanks for allowing me to participate in care of your patient. Will follow patient with you. Please call if any Qs. had d/w team Dr David Harrison Office: [phone] Chief Complaint; unable Reason for consult: Acute Kidney Injury HPI: Pt is a 73 F with hx of heavy smoking, no medical follow ups presented with complaints of SOB and respi distress intubated and admitted to ICU. foudn to have CHF exacerbation with PNA, PE, DM and sepsis renal consult for abnormal imaging and renal fxn eval Denies OTC/herbal meds or NSAIDs Noted recent iodinated contrast exposure as CTA. No obvious episodes of low BP. ROS: pt extubated but on high flow NC. feels better. Physical Examination: General Appearance: better appearing on O2 via NC. no acute distress, obese Vitals reviewed and noted as below Head; Atraumatic, normocephalic ENT: normal oral mucosa EYES: Pupils are equal, round and reactive to light accommodation. Eye muscles and extraocular movement intact. Sclera is anicteric. Neck; supple no lymphadenopathy, no thyromegaly or bruit Lungs: Normal respiratory rate/effort. Breath sounds bilateral improving Heart: Normal rate. s1s2 normal. No rub or gallop. Extremities: 1+ edema. No varicose veins Neurological: Patient is awake alert follows commands Skin: Warm and dry. Normal turgor. No rash. Palpitation: Normal elasticity for age Abdomen: Abdomen is soft. Bowel sounds +. There is no abdominal tenderness, no guarding/rigidity no organomegaly Psych: limited insight. MSK: no joint tenderness or swelling. Digits and nails normal, no deformity : kidney or bladder not palpable. smith farrell Labs/imaging reviewed. Past medical history, past surgical history, family history, social history, allergy reviewed and noted as below Family hx: no hx of CKD. Rest non-contributory UA 30 prot. renal imaging atrophy scarring Rt kidney Objective - Vital Signs/Intake and Output Vital Signs (last 24 hours): Temp Pulse Resp BP Pulse Ox 98.8 F 89 23 115/58 L 93 L 09/12/18 08:00 09/12/18 08:00 09/12/18 08:00 09/12/18 10:11 09/12/18 08:00 Intake and Output: 09/12/18 09/12/18 06:59 18:59 Intake Total 781 250 Output Total 700 Balance 81 250 - Medications Medications: Current Medications Acetaminophen (Tylenol 325mg Tab) 650 mg PO Q6 PRN PRN Reason: TEMP>=99.5F Acetaminophen (Tylenol 650 Mg Supp) 650 mg RC Q6H PRN PRN Reason: TEMP>=99.5F Acetazolamide (Diamox 250 Mg Tab) 250 mg PO BID [facility] Stop: 09/14/18 10:31 Allopurinol (Zyloprim) 100 mg PO DAILY [facility] Last Admin: 09/12/18 10:11 Dose: 100 mg Dextrose (Dextrose 50% Inj) 0 ml IV STAT PRN; Protocol PRN Reason: Hypoglycemia Protocol Doxycycline Hyclate (Doryx) 100 mg PO Q12 [facility]; Protocol Last Admin: 09/12/18 10:11 Dose: 100 mg Ergocalciferol (Drisdol 50,000 Intl Units Cap) 1 cap PO Q7D [facility] Last Admin: 09/10/18 18:32 Dose: 1 cap Furosemide (Lasix) 40 mg IVP DAILY [facility] Last Admin: 09/12/18 10:11 Dose: 40 mg Dextrose (Dextrose 5% In Water 1000 Ml) 1,000 mls @ 0 mls/hr IV .Q0M PRN; Protocol PRN Reason: Hypoglycemia Protocol Dobutamine HCl/Dextrose (Dobutamine/Dextrose 5% 500mg/250ml) 500 mg in 250 mls @ 8.301 mls/hr IV .Q24H PRN; Protocol PRN Reason: TITRATE PER PROTOCOL Last Admin: 09/12/18 10:15 Dose: 2.5 mcg/kg/min, 8.301 mls/hr Insulin Human Lispro (Humalog High) 0 units SC ACHS [facility]; Protocol Last Admin: 09/12/18 07:30 Dose: Not Given Lactic Acid (Lac-Hydrin 12% Cream (140 G)) 0 ea TOP DAILY [facility] Last Admin: 09/12/18 10:13 Dose: 1 applic Levalbuterol HCl (Xopenex) 0.63 mg IH [id number] [facility] Last Admin: 09/12/18 07:24 Dose: 0.63 mg Methylprednisolone (Solu-Medrol) 20 mg IVP Q12H [facility] Last Admin: 09/12/18 10:12 Dose: 20 mg Nicotine (Nicoderm Cq) 1 patch TD DAILY [facility] Last Admin: 09/12/18 10:11 Dose: 1 patch Nystatin (Nystop Topical Powder) 0 gm TOP Q6 [facility] Last Admin: 09/12/18 05:47 Dose: 1 pdr Nystatin (Mycostatin Cream) 0 ea TOP TID [facility] Last Admin: 09/12/18 10:14 Dose: 1 unit Ondansetron HCl (Zofran Inj) 4 mg IVP Q4H PRN PRN Reason: Nausea/Vomiting Pantoprazole Sodium (Protonix Ec Tab) 40 mg PO 0600,1600 [facility] Last Admin: 09/12/18 05:48 Dose: 40 mg Polyethylene Glycol (Miralax) 17 gm PO BID [facility] Last Admin: 09/12/18 10:11 Dose: 17 gm - Labs Labs: 09/12/18 06:00 09/12/18 06:00 PT 13.5 SECONDS (9.4-12.5) H 09/12/18 06:00 INR 1.19 09/12/18 06:00 APTT 64.7 Seconds (26.9-38.3) H 09/12/18 06:00
--- NOTE | 2018-09-12 15:05 | CP.PCM.PN ---
<Erika Dacosta - Last Filed: 09/12/18 15:02> Subjective - Date & Time of Evaluation Date of Evaluation: 09/12/18 Time of Evaluation: 15:03 - Subjective Subjective: Podiatry Consult Note: Dr. Ibarra 73 year old female patient seen and evaluated in the ICU with attending Dr. Ibarra for lower extremity evaluation. Patient resting comfortably and in NAD. She states that her b/l lower extremities are not causing her pain at this time. Denies nausea/vomiting/fever. Objective - Vital Signs/Intake and Output Vital Signs (last 24 hours): Temp Pulse Resp BP Pulse Ox 98.8 F 89 23 115/58 L 93 L 09/12/18 08:00 09/12/18 08:00 09/12/18 08:00 09/12/18 10:11 09/12/18 08:00 Intake and Output: 09/12/18 09/12/18 06:59 18:59 Intake Total 781 250 Output Total 700 Balance 81 250 - Medications Medications: Current Medications Acetaminophen (Tylenol 325mg Tab) 650 mg PO Q6 PRN PRN Reason: TEMP>=99.5F Acetaminophen (Tylenol 650 Mg Supp) 650 mg RC Q6H PRN PRN Reason: TEMP>=99.5F Acetazolamide (Diamox 250 Mg Tab) 250 mg PO BID [facility] Stop: 09/14/18 10:31 Last Admin: 09/12/18 11:30 Dose: 250 mg Allopurinol (Zyloprim) 100 mg PO DAILY [facility] Last Admin: 09/12/18 10:11 Dose: 100 mg Dextrose (Dextrose 50% Inj) 0 ml IV STAT PRN; Protocol PRN Reason: Hypoglycemia Protocol Doxycycline Hyclate (Doryx) 100 mg PO Q12 [facility]; Protocol Last Admin: 09/12/18 10:11 Dose: 100 mg Ergocalciferol (Drisdol 50,000 Intl Units Cap) 1 cap PO Q7D [facility] Last Admin: 09/10/18 18:32 Dose: 1 cap Furosemide (Lasix) 40 mg IVP DAILY [facility] Last Admin: 09/12/18 10:11 Dose: 40 mg Dextrose (Dextrose 5% In Water 1000 Ml) 1,000 mls @ 0 mls/hr IV .Q0M PRN; Protocol PRN Reason: Hypoglycemia Protocol Dobutamine HCl/Dextrose (Dobutamine/Dextrose 5% 500mg/250ml) 500 mg in 250 mls @ 8.301 mls/hr IV .Q24H PRN; Protocol PRN Reason: TITRATE PER PROTOCOL Last Admin: 09/12/18 10:15 Dose: 2.5 mcg/kg/min, 8.301 mls/hr Heparin Sodium/Sodium Chloride (Heparin 28888 Units/250ml 1/2 Normal Saline) 25,000 units in 250 mls @ 19.701 mls/hr IV .[id number] PRN; Protocol PRN Reason: ADJUST RATE PER PROTOCOL Insulin Human Lispro (Humalog High) 0 units SC ACHS [facility]; Protocol Last Admin: 09/12/18 12:35 Dose: Not Given Lactic Acid (Lac-Hydrin 12% Cream (140 G)) 0 ea TOP DAILY [facility] Last Admin: 09/12/18 10:13 Dose: 1 applic Levalbuterol HCl (Xopenex) 0.63 mg IH [id number] [facility] Last Admin: 09/12/18 14:09 Dose: 0.63 mg Methylprednisolone (Solu-Medrol) 20 mg IVP Q12H [facility] Last Admin: 09/12/18 10:12 Dose: 20 mg Nicotine (Nicoderm Cq) 1 patch TD DAILY [facility] Last Admin: 09/12/18 10:11 Dose: 1 patch Nystatin (Nystop Topical Powder) 0 gm TOP Q6 [facility] Last Admin: 09/12/18 12:00 Dose: 1 pdr Nystatin (Mycostatin Cream) 0 ea TOP TID [facility] Last Admin: 09/12/18 13:58 Dose: 1 unit Ondansetron HCl (Zofran Inj) 4 mg IVP Q4H PRN PRN Reason: Nausea/Vomiting Pantoprazole Sodium (Protonix Ec Tab) 40 mg PO 0600,1600 [facility] Last Admin: 09/12/18 05:48 Dose: 40 mg Polyethylene Glycol (Miralax) 17 gm PO BID [facility] Last Admin: 09/12/18 10:11 Dose: 17 gm - Labs Labs: 09/12/18 06:00 09/12/18 06:00 PT 13.5 SECONDS (9.4-12.5) H 09/12/18 06:00 INR 1.19 09/12/18 06:00 APTT 64.7 Seconds (26.9-38.3) H 09/12/18 06:00 - Constitutional Appears: Non-toxic, No Acute Distress - Head Exam Head Exam: ATRAUMATIC, NORMOCEPHALIC - Extremities Exam Additional comments: Vascular: DP/PT palpable, CFT < 3 seconds, TG warm to warm, +1 edema appreciated to b/l extremities Ortho: Unable to assess at this time Neuro: Unable to assess at this time Derm: Calluses appreciated to b/l heels, no open lesions, no erythema, no cellulitis no clinical signs of infection. Elongated, dystrophic nails to b/l digits - Neurological Exam Neurological Exam: Alert, Awake, Oriented x3 - Psychiatric Exam Psychiatric exam: Normal Affect, Normal Mood Assessment and Plan - Assessment and Plan (Free Text) Assessment: 73F with xerosis and calluses to b/l heels Plan: Patient seen and evaluated with Dr. Alegre WBC 9.1, afebrile Will continue to monitor skin integrity and for DTI Ammonium lactate and Vit A&D ointment ordered to be applied to heels daily Multipodus boots ordered Will continue to follow while in house <Hong Ibarra - Last Filed: 09/12/18 18:15> Objective - Vital Signs/Intake and Output Vital Signs (last 24 hours): Temp Pulse Resp BP Pulse Ox 97.8 F 73 26 H 128/62 96 09/12/18 12:00 09/12/18 14:00 09/12/18 14:00 09/12/18 14:00 09/12/18 14:00 Intake and Output: 09/12/18 09/12/18 06:59 18:59 Intake Total 781 250 Output Total 700 Balance 81 250 - Medications Medications: Current Medications Acetaminophen (Tylenol 325mg Tab) 650 mg PO Q6 PRN PRN Reason: TEMP>=99.5F Acetaminophen (Tylenol 650 Mg Supp) 650 mg RC Q6H PRN PRN Reason: TEMP>=99.5F Acetazolamide (Diamox 250 Mg Tab) 250 mg PO BID [facility] Stop: 09/14/18 10:31 Last Admin: 09/12/18 11:30 Dose: 250 mg Allopurinol (Zyloprim) 100 mg PO DAILY [facility] Last Admin: 09/12/18 10:11 Dose: 100 mg Dextrose (Dextrose 50% Inj) 0 ml IV STAT PRN; Protocol PRN Reason: Hypoglycemia Protocol Doxycycline Hyclate (Doryx) 100 mg PO Q12 [facility]; Protocol Last Admin: 09/12/18 10:11 Dose: 100 mg Ergocalciferol (Drisdol 50,000 Intl Units Cap) 1 cap PO Q7D [facility] Last Admin: 09/10/18 18:32 Dose: 1 cap Furosemide (Lasix) 40 mg IVP DAILY [facility] Last Admin: 09/12/18 10:11 Dose: 40 mg Dextrose (Dextrose 5% In Water 1000 Ml) 1,000 mls @ 0 mls/hr IV .Q0M PRN; Protocol PRN Reason: Hypoglycemia Protocol Dobutamine HCl/Dextrose (Dobutamine/Dextrose 5% 500mg/250ml) 500 mg in 250 mls @ 8.301 mls/hr IV .Q24H PRN; Protocol PRN Reason: TITRATE PER PROTOCOL Last Admin: 09/12/18 10:15 Dose: 2.5 mcg/kg/min, 8.301 mls/hr Heparin Sodium/Sodium Chloride (Heparin 51048 Units/250ml 1/2 Normal Saline) 25,000 units in 250 mls @ 19.701 mls/hr IV .[id number] PRN; Protocol PRN Reason: ADJUST RATE PER PROTOCOL Last Admin: 09/12/18 18:02 Dose: 18 units/kg/hr, 19.701 mls/hr Insulin Human Lispro (Humalog High) 0 units SC ACHS [facility]; Protocol Last Admin: 09/12/18 12:35 Dose: Not Given Lactic Acid (Lac-Hydrin 12% Cream (140 G)) 0 ea TOP DAILY [facility] Last Admin: 09/12/18 10:13 Dose: 1 applic Levalbuterol HCl (Xopenex) 0.63 mg IH [id number] [facility] Last Admin: 09/12/18 14:09 Dose: 0.63 mg Methylprednisolone (Solu-Medrol) 20 mg IVP Q12H [facility] Last Admin: 09/12/18 10:12 Dose: 20 mg Nicotine (Nicoderm Cq) 1 patch TD DAILY [facility] Last Admin: 09/12/18 10:11 Dose: 1 patch Nystatin (Nystop Topical Powder) 0 gm TOP Q6 [facility] Last Admin: 03/15/19 18:04 Dose: 1 pdr Nystatin (Mycostatin Cream) 0 ea TOP TID [facility] Last Admin: 09/12/18 18:04 Dose: 1 unit Ondansetron HCl (Zofran Inj) 4 mg IVP Q4H PRN PRN Reason: Nausea/Vomiting Pantoprazole Sodium (Protonix Ec Tab) 40 mg PO 0600,1600 [facility] Last Admin: 09/12/18 18:03 Dose: 40 mg Polyethylene Glycol (Miralax) 17 gm PO BID [facility] Last Admin: 09/12/18 18:03 Dose: 17 gm - Labs Labs: 09/12/18 06:00 09/12/18 06:00 PT 13.5 SECONDS (9.4-12.5) H 09/12/18 06:00 INR 1.19 09/12/18 06:00 APTT 64.7 Seconds (26.9-38.3) H 09/12/18 06:00 Attending/Attestation - Attestation I have personally seen and examined this patient.: Yes I have fully participated in the care of the patient.: Yes I have reviewed all pertinent clinical information, including history, physical exam and plan: Yes
--- NOTE | 2018-09-12 15:37 | CT ---
Date of service: 09/12/2018 PROCEDURE: CT Abdomen and Pelvis without contrast HISTORY: Rule out intra-abdominal bleed COMPARISON: CT abdomen pelvis 09/09/2018 TECHNIQUE: CT scan of the abdomen and pelvis was performed without IV contrast. The absence of oral contrast limits evaluation of bowel lumen. The absence of intravenous contrast limits evaluation of solid organs including the kidneys as well as blood vessels and vascular structures. Coronal and sagittal reconstructions were also acquired. Radiation dose: Total exam DLP = 1053.56 mGy-cm. FINDINGS: LOWER THORAX: Minimal right basilar pneumothorax noted, decreased in size from prior exam. Small areas of bibasilar atelectasis are again seen, right greater than left that appear mildly increased since prior exam. There are small bilateral pleural effusions, right greater than left that appear grossly unchanged. Heart is normal in size.. LIVER: There is a 6.5 cm cyst in the right lobe containing a coarse calcifications centrally. GALLBLADDER AND BILE DUCTS: Gallstone noted in the gallbladder. PANCREAS: Unremarkable unenhanced appearance. SPLEEN: There is a 1.5 cm cyst in the spleen. ADRENALS: Unremarkable unenhanced appearance. KIDNEYS AND URETERS: Right kidney: Atrophic. There is no nephrolithiasis or hydronephrosis. Left kidney: Unremarkable unenhanced appearance. There is no nephrolithiasis or hydronephrosis. BLADDER: Is incompletely distended with wall thickening. Small amount of air noted in the urinary bladder likely due to Alonzo catheter insertion. Alonzo catheter is present within urinary bladder. REPRODUCTIVE: Uterus demonstrates a lobulated appearance and contains scattered calcifications. Findings likely due to fibroids. APPENDIX: No evidence of appendicitis. STOMACH AND BOWEL: There is no abnormal small of large bowel dilatation. Sigmoid diverticulosis without evidence of diverticulitis. Moderate volume of stool throughout the colon. PERITONEUM: No free fluid or free air identified. LYMPH NODES: No significant abdominal or pelvic lymphadenopathy. VASCULATURE: Mild ectasia noted of the infrarenal abdominal aorta. Aortobi-iliac atherosclerotic disease noted. BONES: Degenerative changes noted of the spine. OTHER FINDINGS: In the subcutaneous fat of the bilateral lateral abdominal cobb, there are inflammatory changes, nonspecific, left greater than right. Partially visualized portions of the proximal thighs demonstrate muscular atrophy with increased density of the medial left thigh musculature and soft tissues, suggestive of hemorrhage as attenuation is increased measuring approximately 64 Hounsfield units. This area is incompletely visualized on this exam. IMPRESSION: Findings suggestive of hemorrhage/hematoma involving the proximal medial thigh musculature. This area is incompletely visualized on this exam. Minimal right basilar pneumothorax, significantly decreased since prior exam. Cholelithiasis. Small bilateral pleural effusions, right greater than left, unchanged. Incompletely distended urinary bladder with wall thickening. Additional findings as above.
[2018-09-12] MEDS: Heparin25000 units/250ml 1/2NS 25,000 UNITS/250 ML BAG IV PRN (18:02)
[2018-09-12 21:01] LABS: INFLUENZA TYPE A AB <1:8 titer (<1:8); INFLUENZA TYPE B AB <1:8 titer (<1:8)
--- NOTE | 2018-09-12 23:15 | PN ---
DATE: 09/12/2018 SUBJECTIVE: The patient is seen in the ICU and also in the CAT scan while getting a CAT scan of the abdomen and pelvis done. Overnight nurse's notes were reviewed. The patient was found to be alert, awake, responsive. The patient to be waited in the ICU. The patient required BiPAP for respiratory support. PHYSICAL EXAMINATION: VITAL SIGNS: T-max 98.8. Telemetry shows sinus rhythm. Heart rate 76 and 73. Blood pressure in the last 24 to 48 hours systolic in 110, 120s and 130s. There were two episodes where the patient was noted to have blood pressure of 89 and 88 systolic, but the patient's blood pressure came back up to 118/52 and 128/62. Respiration 24. O2 sat 96% to 98%. HEENT: Head examination: Normocephalic, atraumatic. HEENT examination shows pink conjunctivae. Anicteric sclerae. No oropharyngeal lesion. NECK: No neck rigidity. Positive right-sided internal jugular catheter. CHEST: Kyphosis. Lung examination shows decreased breath sound at the bases. Positive rhonchi in the upper anterior lung duncan. CARDIOVASCULAR: S1 and S2. Regular rhythm. Positive systolic murmur in the left sternal border, right second intercostal space, left second intercostal space. ABDOMEN: Morbidly obese. Positive bowel sounds. No palpable hepatosplenomegaly. GENITALIA: Female. Positive Alonzo catheter. EXTREMITIES: Show positive swelling of the lower extremities. MUSCULOSKELETAL: Shows an elevated body mass index (BMI) of 42. DIAGNOSTIC DATA: On 09/12/2018, WBC 9.1, hemoglobin and hematocrit 11.4 and 38.1, platelet 219. Initial admission hemoglobin and hematocrit are 17 and 55.5, platelet 219, granulocytes 88% segs. PT and PTT 13.5 and 64.5. ABG on 60% FiO2, pH of 7.42, pCO2 is 63 which is steadily going up, pO2 of 64, bicarb 41, saturation of 95%. Sodium is 137, potassium 5, chloride 94, CO2 of 42, anion gap 6, BUN 41, creatinine 0.7, GFR greater than 60, glucose 124, calcium 8, phosphorus 3.5, magnesium is 1.9. AST is 38. ProBNP is down to 1200. Total protein 5.2, albumin 2.5. Sputum culture, MRSA culture, urine culture, blood cultures all negative. IMPRESSION AND PLAN: 1. Ventilator-dependent respiratory failure. 2. Status post extubation. 3. Continuous positive airway pressure dependent respiratory failure. 4. Acute right-sided multilobar pulmonary embolism. 5. Acute non-ST elevation myocardial infarction. 6. Left posterior medial thigh hematoma with intramuscular hematoma. 7. Right basilar pneumothorax, decreased in size. 8. Bibasilar atelectasis and bilateral pleural effusion, right more than the left and infiltrate. 9. Right hepatic lobe cyst. 10. Cholelithiasis. 11. Splenic cyst. 12. Atrophic right kidney. 13. Uterine fibroid. 14. Sigmoid diverticulosis. 15. Fecal stasis. 16. Degenerative joint disease of the spine. 17. Left upper thigh hematoma. 18. Questionable acute cholecystitis. 19. Constipation. 20. Hepatomegaly. 21. Hepatic steatosis. 22. Right-sided aortic arch with aberrant left subclavian artery. 23. Bibasilar pneumonia and ground-glass opacities. 24. Mediastinal lymphadenopathy. 25. Cardiomyopathy with left ventricular ejection fraction of 40% with moderate to severely impaired left ventricular systolic function, grade I abnormal relaxation pattern. 26. Severely hypokinetic and dilated right ventricle. 27. Morbid obesity. 28. New-onset diabetes mellitus with hemoglobin A1c of 6.8. 29. Bilateral heel calluses of the feet and xerosis of both feet. 30. Chronic kidney disease. 31. Acute hypoxic hypercapnic respiratory failure with renal metabolic compensation. 32. Severe sepsis with acute ventilator-dependent respiratory failure, status post extubation. 33. Biventricular dysfunction. 34. Community-acquired pneumonia and bilateral pleural effusion. 35. Possible anterior abdominal wall cellulitis. 36. Status post erythrocytosis and granulocytosis. 37. Elevated D-dimer of 1600. 38. Hypoxemia, hypercarbia and respiratory acidosis. 39. Metabolic acidosis. 40. Prerenal kidney injury. 41. Acute systolic congestive heart failure with elevated ProBNP. 42. Hypovitaminosis D. 43. Mild protein malnutrition and mild hypoalbuminemia. 44. Proteinuria, bilirubinuria. 45. Deconditioning. 46. Gait dysfunction. 47. History of nicotine addiction and dependence. 48. Intravenous dobutamine-dependent congestive heart failure. 49. Hypomagnesemia. 50. Nicotine dependence. 51. Hyperuricemia. 1. Acute ventilator-dependent respiratory failure, status post extubation. 2. Acute right-sided multilobar pulmonary embolism. 3. Acute non-ST elevation myocardial infarction. 4. Acute systolic congestive heart failure with left ventricle ejection fraction of 39% and decreased left ventricular systolic function. 5. Pulmonary vascular congestion and congestive heart failure. 6. Bilateral pleural effusion. 7. Possible community-acquired versus healthcare-associated right middle lobe, right lower lobe pneumonia. 8. Cholelithiasis. 9. Constipation. 10. Right ventricular conduction delay. 11. Anterolateral coronary ischemia. 12. Hypoxemia. 13. Acute systolic congestive heart failure with elevated pro-brain natriuretic peptide. 14. Mild protein malnutrition and mild hypoalbuminemia. 15. Hepatomegaly. 16. Hepatic steatosis. 17. Hypovitaminosis D. 18. Grade 1 abnormal relaxation pattern. 19. Right ventricular dilatation and hypokinesis. 20. Severe deconditioning and gait dysfunction. 21. Status post fever. 22. Severe sepsis. 23. Bilateral lower extremity venous stasis. 24. Obesity. 25. New-onset diabetes mellitus with hemoglobin A1c of 6.8. 26. Hyperuricemia. 1. Acute ventilator-dependent respiratory failure. 2. Acute multilobar right-sided pulmonary embolism. 3. Acute exacerbation of chronic obstructive pulmonary disease with hypoxemia. 4. Prerenal kidney injury. 5. New onset early diabetes mellitus. 6. Acute systolic congestive heart failure with elevated ProBNP. 7. Borderline hypomagnesemia. 8. Mild protein malnutrition and hypoalbuminemia. 9. Hypovitaminosis D. 10. Multilobar right lower lobe and right middle lobe pneumonia and pleural effusion. 11. Cholelithiasis. 12. Hepatomegaly. 13. Hepatic steatosis. 14. Possible cardiomyopathy with left ventricular ejection fraction of 39% with decreased left ventricular systolic function. 15. Grade 1 abnormal relaxation pattern. 16. Right ventricular dilatation and hypokinesis. 17. Right ventricular conduction delay. 18. T-wave abnormalities V1-V6. 19. Acute non-ST elevation myocardial infarction with elevated troponin. 20. Bilateral lower extremity venous stasis. 21. Morbid obesity. 22. Active nicotine addiction and dependence. 23. New-onset diabetes mellitus. 1. Acute hypoxic hypercapnic ventilator-dependent respiratory failure. 2. Right lower lobe acute pulmonary embolism. 3. Hypoxemia. 4. Severe sepsis. 5. Acute exacerbation of chronic obstructive pulmonary disease with hypoxemia. 6. Congestive heart failure, most likely right-sided diastolic congestive heart failure. 7. Fever. 8. Possible bilateral multilobar bibasilar pneumonia. 9. Acute [id number] myocardial infarction with elevated troponin of 0.13. 10. Coronary ischemic changes on the EKG. 11. Morbid obesity with diagnosis of active nicotine addiction and dependence. 12. Possible healthcare versus community-acquired multilobar pneumonia. 13. Active nicotine addiction. 14. Status post right internal jugular triple lumen placement. 15. Bilateral pleural effusion. 16. Morbid obesity. 17. Early diabetes mellitus. 18. Right axis deviation. 1. Acute ventilator-dependent respiratory failure. 2. Acute ventilator-dependent hypoxic-hypercarbic respiratory failure. 3. Respiratory acidosis with hypercarbia. 4. Distal right lower lobe and proximal right lower lobe segmental branches pulmonary embolism. 5. Right lower lobe pneumonia, infiltrate atelectasis with right-sided effusion. 6. Bibasilar atelectasis. 7. Cardiomegaly. 8. Possible pulmonary hypertension. 9. Right-sided aortic arch with aberrant left subclavian artery. 10. Left lower lobe atelectasis. 11. Bibasilar pulmonary opacities versus pneumonia. 12. Nonspecific mediastinal lymphadenopathy. 13. Active nicotine addiction and dependence. 14. Right renal atrophic scarring. 15. Right axis deviation. 16. Right ventricular hypertrophy. 17. Possible acute non-ST elevation myocardial infarction with elevated troponin. 18. Questionable sepsis with high-grade fever. 19. Tachycardia. 20. Tachypnea. 21. Hypoxemia. 22. Erythrocytosis with granulocytosis. 23. Elevated d-dimer. 24. Hypercarbia respiratory acidosis. 25. Non-hemolyzed hyperkalemia. 26. Possible new-onset diabetes mellitus. 27. Metabolic alkalosis. 28. Prerenal kidney injury. 29. Acute non-ST elevation myocardial infarction with elevated troponin and abnormal electrocardiogram with right axis deviation, right ventricular hypertrophy, and age indeterminate inferior infarct and possible lateral subendocardial injury. 30. Hyperphosphatemia. 31. Congestive heart failure whether systolic or diastolic with elevated ProBNP. 32. Proteinuria. 33. Bibasilar atelectasis, pneumonia and bilateral pleural effusion. 34. Cardiomegaly. 35. Status post right internal jugular triple-lumen catheter placement. 36. High-grade fever. 37. Right-sided aortic arch. 38. Acute exacerbation of chronic obstructive pulmonary disease. 39. Bibasilar atelectasis, infiltrate and bilateral pleural effusion. 40. Bilateral inguinal area fungal rash. 41. Severe sepsis. 42. Morbid obesity. 43. Bilateral lower extremity venous stasis. 44. Early diabetes mellitus. PLAN: At this time, the patient's heparin was stopped by the ICU team but after having a lengthy discussion with the inner tube tuber machine operator, heparin drip has to be re-instituted because of the patient's current comorbidities including acute pulmonary embolism and acute non-ST elevation myocardial infarction roles a much higher risk of the patient having adverse complications and adverse outcome due to which the patient's heparin drip was resumed after discussing with Cardiology at length. Next, the patient has been ordered repeat labs. Current consultations: Surgery, Cardiology, Gastroenterology, Infectious Disease, Nephrology, Interventional Radiology, and Podiatry. Current medications are Diamox 250 mg b.i.d., dobutamine drip, doxycycline 100 mg p.o. every 12 hours, Drisdol 50,000 units weekly, heparin drip is re-instituted, Humalog high-dose sliding scale coverage, Lac-Hydrin lotion to both feet and legs, Lasix 40 mg IV daily. The patient has been ordered magnesium sulfate. The patient is on MiraLax 17 g twice a day, Mycostatin cream, nicotine patch 21 mg daily, Protonix 40 mg twice a day, Solu-Medrol decreased to 20 mg IV every 12 hours, Tylenol p.o. suppository every 6 hours p.r.n., Xopenex nebulizer 0.63 mg every 6 hours, Zofran 4 mg IV every 4 hours p.r.n., allopurinol 100 mg daily. The patient has been started on a heart-healthy diet. The patient is on SCDs, OCHOA stockings. The patient was seen by Infectious Disease. The patient's IV meropenem was discontinued. The patient is on p.o. doxycycline. The patient and the patient's next of kin, the patient's [id number] have been updated about the patient's multiple comorbidities, complicated and critical medical condition and decompensated overall medical condition and overall guarded prognosis. Diagnoses were all above explained to the patient and the patient's [id number] at length, and all questions and concerns were answered, which they acknowledged understood. Dictated and electronically signed, not read. Manuel MD [facility] # [id number] SHUN
[2018-09-13] MEDS: Nystatin 100,000 Units/gm Topical Pow(15 gm) TOP SCH ×5 (00:05→17:41)
[2018-09-13] MEDS: Levalbuterol 0.63 MG/3 ML Inhal Soln UD IH SCH ×3 (00:20→07:25)
[2018-09-13 05:52] LABS: BASO # 0.01 K/mm3 (0.0-2.0); BASO % 0.1 % (0.0-3.0); HEMOGLOBIN 11.3 g/dL (12.0-16.0); LYMPH # 0.4 (1.2-3.4); MEAN CELL VOLUME 99.5 fl (80.0-105.0); MEAN CORPUSCULAR HEMOGLOBIN 29.4 pg (25.0-35.0); MEAN CORPUSCULAR HGB CONC 29.5 g/dl (31.0-37.0); MONO # 0.7 (0.1-0.6); MONO % 8.5 % (1.0-6.0); RBC 3.85 10^6/uL (3.5-6.1); RED CELL DISTRIBUTION WIDTH 14.5 % (11.5-14.5)
[2018-09-13] MEDS: Pantoprazole 40 mg EC Tab PO SCH ×2 (05:53→16:06)
[2018-09-13 06:21] LABS: INR 1.15
[2018-09-13 06:33] LABS: ALBUMIN 2.8 g/dL (3.0-4.8); ALT/SGPT 21 U/L (7-56); AST/SGOT 27 U/L (14-36); BILIRUBIN,DIRECT 0.5 mg/dL (0.0-0.4); BLOOD UREA NITROGEN 32 mg/dL (7-21); CALCIUM 8.4 mg/dL (8.4-10.5); GFR NON-AFRICAN AMERICAN > 60
[2018-09-13 06:34] LABS: B-TYPE NATRIURETIC PEPTIDE 1330 pg/mL (0-450)
[2018-09-13 07:04] LABS: PARTIAL THROMBOPLASTIN TIME 106.7 Seconds (26.9-38.3)
[2018-09-13] MEDS: Insulin Lispro (HUMAlog) HIGH Coverage SC SCH ×4 (08:08→22:30)
[2018-09-13] MEDS: MethylPREDNISolone 40 mg Vial IVP SCH ×2 (08:08→21:00)
--- NOTE | 2018-09-13 08:11 | CP.PCM.PN ---
Subjective - Date & Time of Evaluation Date of Evaluation: 09/13/18 Time of Evaluation: 08:04 - Subjective Subjective: Surgery Progress Note for Dr. Norwood 73F seen and evaluated at bedside this morning. No acute events overnight. No complaints this morning. Denies f/c, n/v/d, SOB, CP, or urinary symptoms. Objective - Vital Signs/Intake and Output Vital Signs (last 24 hours): Temp Pulse Resp BP Pulse Ox 98.2 F 75 18 120/45 L 92 L 09/13/18 04:00 09/13/18 05:00 09/13/18 07:27 09/13/18 05:00 09/13/18 05:00 Intake and Output: 09/13/18 09/13/18 06:59 18:59 Intake Total 623 Output Total 1600 Balance -977 - Medications Medications: Current Medications Acetaminophen (Tylenol 325mg Tab) 650 mg PO Q6 PRN PRN Reason: TEMP>=99.5F Acetaminophen (Tylenol 650 Mg Supp) 650 mg RC Q6H PRN PRN Reason: TEMP>=99.5F Acetazolamide (Diamox 250 Mg Tab) 250 mg PO BID SABIHA Stop: 09/14/18 10:31 Last Admin: 09/12/18 18:45 Dose: 250 mg Allopurinol (Zyloprim) 100 mg PO DAILY SABIHA Last Admin: 09/12/18 10:11 Dose: 100 mg Dextrose (Dextrose 50% Inj) 0 ml IV STAT PRN; Protocol PRN Reason: Hypoglycemia Protocol Doxycycline Hyclate (Doryx) 100 mg PO Q12 SABIHA; Protocol Last Admin: 09/12/18 21:32 Dose: 100 mg Ergocalciferol (Drisdol 50,000 Intl Units Cap) 1 cap PO Q7D SABIHA Last Admin: 09/10/18 18:32 Dose: 1 cap Furosemide (Lasix) 40 mg IVP DAILY SABIHA Last Admin: 09/12/18 10:11 Dose: 40 mg Dextrose (Dextrose 5% In Water 1000 Ml) 1,000 mls @ 0 mls/hr IV .Q0M PRN; Prot ocol PRN Reason: Hypoglycemia Protocol Dobutamine HCl/Dextrose (Dobutamine/Dextrose 5% 500mg/250ml) 500 mg in 250 mls @ 8.301 mls/hr IV .Q24H PRN; Protocol PRN Reason: TITRATE PER PROTOCOL Last Admin: 09/12/18 10:15 Dose: 2.5 mcg/kg/min, 8.301 mls/hr Heparin Sodium/Sodium Chloride (Heparin 19805 Units/250ml 1/2 Normal Saline) 25,000 units in 250 mls @ 19.701 mls/hr IV .[id number] PRN; Protocol PRN Reason: ADJUST RATE PER PROTOCOL Last Titration: 09/13/18 02:00 Dose: 16 units/kg/hr, 17.512 mls/hr Insulin Human Lispro (Humalog High) 0 units SC ACHS SABIHA; Protocol Last Admin: 09/12/18 21:44 Dose: Not Given Lactic Acid (Lac-Hydrin 12% Cream (140 G)) 0 ea TOP DAILY [facility] Last Admin: 09/12/18 10:13 Dose: 1 applic Levalbuterol HCl (Xopenex) 0.63 mg IH [id number] [facility] Last Admin: 09/13/18 07:25 Dose: 0.63 mg Methylprednisolone (Solu-Medrol) 20 mg IVP Q12H SABIHA Last Admin: 09/12/18 19:51 Dose: 20 mg Nicotine (Nicoderm Cq) 1 patch TD DAILY [facility] Last Admin: 09/12/18 10:11 Dose: 1 patch Nystatin (Nystop Topical Powder) 0 gm TOP Q6 SABIHA Last Admin: 09/13/18 05:53 Dose: 1 pdr Nystatin (Mycostatin Cream) 0 ea TOP TID [facility] Last Admin: 09/12/18 18:04 Dose: 1 unit Ondansetron HCl (Zofran Inj) 4 mg IVP Q4H PRN PRN Reason: Nausea/Vomiting Pantoprazole Sodium (Protonix Ec Tab) 40 mg PO 0600,1600 [facility] Last Admin: 09/13/18 05:53 Dose: 40 mg Polyethylene Glycol (Miralax) 17 gm PO BID [facility] Last Admin: 09/12/18 18:03 Dose: 17 gm - Labs Labs: 09/13/18 05:40 09/13/18 05:40 PT 13.0 SECONDS (9.4-12.5) H 09/13/18 05:40 INR 1.15 09/13/18 05:40 APTT 106.7 Seconds (26.9-38.3) H* 09/13/18 05:40 - Constitutional Appears: Well, Non-toxic, No Acute Distress - Head Exam Head Exam: ATRAUMATIC, NORMAL INSPECTION, NORMOCEPHALIC - Eye Exam Eye Exam: EOMI - ENT Exam ENT Exam: Mucous Membranes Moist - Respiratory Exam Respiratory Exam: NORMAL BREATHING PATTERN - Cardiovascular Exam Cardiovascular Exam: REGULAR RHYTHM. absent: Tachycardia - GI/Abdominal Exam GI & Abdominal Exam: Soft, Normal Bowel Sounds. absent: Tenderness - Extremities Exam Extremities Exam: Normal Inspection. absent: Tenderness Additional comments: Palpable DP/PT 2+ pulses - Neurological Exam Neurological Exam: Alert, Awake, Oriented x3 - Psychiatric Exam Psychiatric exam: Normal Affect, Normal Mood - Skin Skin Exam: Dry, Intact, Normal Color, Warm Assessment and Plan - Assessment and Plan (Free Text) Assessment: 73F w/ intramuscular hematoma, recently placed on a heparin drip Plan: Continue to elevate lower extremities Monitor for signs of compartment syndrome Monitor for increasing size of hematoma Further recommendations per Dr. Cuco Culver PGY1
[2018-09-13] MEDS: POLYETHYLENE GLYCOL 3350 17 GM/Dose PACKET PO SCH ×2 (09:12→17:39)
[2018-09-13] MEDS: Nystatin 100,000 Units/gm Cream(15 gm) TOP SCH ×3 (09:14→17:40)
[2018-09-13] MEDS: Ammonium Lactate 12% Cream (140 g) TOP SCH (09:14)
[2018-09-13] MEDS: VITS A AND D/WHITE PET/LANOLIN 113.4 APPLIC/113.4 G TUBE TP SCH (09:15)
--- NOTE | 2018-09-13 09:26 | CP.CCUPN ---
<Mumtaz Menezes - Last Filed: 09/13/18 16:41> CCU Subjective - Physician Review Events Since Last Encounter (Free Text): 09/13/18 09:23 No acute events overnight. Subjective (Free Text): 09/13/18 09:24 Pt seen and examined this morning in the ICU. Pt eating well, and has no new complaints at this time. Critical Care Time Spent (in minutes): 40 CCU Objective - Vital Signs / Intake & Output Vital Signs (Last 4 hours): Vital Signs Pulse Resp BP Pulse Ox 09/13/18 07:27 18 09/13/18 07:00 73 148/73 95 09/13/18 06:00 73 25 H 134/48 L 94 L Intake and Output (Last 8hrs): Intake & Output 09/12/18 09/13/18 09/13/18 22:59 06:59 14:59 Intake Total 1033 623 32 Output Total 0 1600 Balance 1033 -977 32 Weight 234 lb 9.6 oz Intake: IV 53 423 32 dobutamine 100 heparin 53 205 Oral 980 200 Output: Urine 1600 Urethral (Alonzo) 1600 Stool 0 - Physical Exam Head: Positive for: Atraumatic, Normocephalic Conjunctiva: Positive for: Normal, Other Mouth: Positive for: Dry Nose (Internal): Positive for: Normal Inspection Neck: Positive for: Trachea Midline. Negative for: JVD, Bruit Respiratory/Chest: Positive for: Good Air Exchange, Decreased Breath Sounds. Negative for: Respiratory Distress Cardiovascular: Positive for: Regular Rate and Rhythm, Normal S1, S2. Negative for: Rub, Gallop Abdomen: Positive for: Normal Bowel Sounds. Negative for: Tenderness, Distention Breast/Axillary: Positive for: Erythema (Erythematous bilateral candidal rash to breast) Lower Extremity: Positive for: Edema (3+ pedal edema bilateral) Neurological: Positive for: GCS=15, Speech Normal Skin: Positive for: Rashes, Erythematous (bilateral candidal rash to groin, hips, abdomen) Psychiatric: Positive for: Oriented x 3, Normal Insight, Normal Concentration - Medications Active Medications: Active Medications Generic Name Dose Route Start Last Admin Trade Name Freq PRN Reason Stop Dose Admin Acetaminophen 650 mg 09/08/18 14:22 Tylenol 325mg Tab PO Q6 PRN TEMP>=99.5F Acetaminophen 650 mg 09/08/18 14:22 Tylenol 650 Mg Supp RC Q6H PRN TEMP>=99.5F Acetazolamide 250 mg 09/12/18 10:30 09/12/18 18:45 Diamox 250 Mg Tab PO 09/14/18 10:31 250 mg BID DEANGELO Administration Allopurinol 100 mg 09/09/18 10:00 09/12/18 10:11 Zyloprim PO 100 mg DAILY DEANGELO Administration Dextrose 0 ml 09/08/18 22:59 Dextrose 50% Inj IV STAT PRN Hypoglycemia Protocol Protocol Doxycycline Hyclate 100 mg 09/10/18 22:00 09/12/18 21:32 Doryx PO 100 mg Q12 DEANGELO Administration Protocol Ergocalciferol 1 cap 09/10/18 14:30 09/10/18 18:32 Drisdol 50,000 Intl Units Cap PO 1 cap Q7D DEANGELO Administration Furosemide 40 mg 09/11/18 10:00 09/12/18 10:11 Lasix IVP 40 mg DAILY DEANGELO Administration Dextrose 1,000 mls @ 0 mls/hr 09/08/18 22:59 Dextrose 5% In Water 1000 Ml IV .Q0M PRN Hypoglycemia Protocol Protocol Per Protocol Dobutamine HCl/Dextrose 500 mg in 250 mls @ 8.301 mls/hr 09/09/18 16:30 09/12/18 10:15 Dobutamine/Dextrose 5% 500mg/250ml IV 2.5 mcg/kg/min .Q24H PRN 8.301 mls/hr TITRATE PER PROTOCOL Administration Protocol 2.5 MCG/KG/MIN Heparin Sodium/Sodium Chloride 25,000 units in 250 mls @ 19.701 mls/hr 09/12/18 14:38 09/13/18 08:09 Heparin 56416 Units/250ml 1/2 Normal Saline IV 14 units/kg/hr .[id number] PRN 15.323 mls/hr ADJUST RATE PER PROTOCOL Titration Protocol 18 UNITS/KG/HR Insulin Human Lispro 0 units 09/11/18 22:00 09/13/18 08:08 Humalog High SC Not Given ACHS DEANGELO Protocol Lactic Acid 0 ea 09/10/18 10:00 09/12/18 10:13 Lac-Hydrin 12% Cream (140 G) TOP 1 applic DAILY DEANGELO Administration Levalbuterol HCl 0.63 mg 09/08/18 20:00 09/13/18 07:25 Xopenex IH 0.63 mg [id number] DEANGELO Administration Methylprednisolone 20 mg 09/09/18 08:15 09/13/18 08:08 Solu-Medrol IVP 20 mg Q12H DEANGELO Administration Nicotine 1 patch 09/09/18 10:00 09/12/18 10:11 Nicoderm Cq TD 1 patch DAILY DEANGELO Administration Nystatin 0 gm 09/08/18 18:00 09/13/18 05:53 Nystop Topical Powder TOP 1 pdr Q6 DEANGELO Administration Nystatin 0 ea 09/08/18 23:00 09/12/18 18:04 Mycostatin Cream TOP 1 unit TID DEANGELO Administration Ondansetron HCl 4 mg 09/08/18 14:22 Zofran Inj IVP Q4H PRN Nausea/Vomiting Pantoprazole Sodium 40 mg 09/11/18 06:00 09/13/18 05:53 Protonix Ec Tab PO 40 mg 0600,1600 DEANGELO Administration Polyethylene Glycol 17 gm 09/11/18 10:00 09/12/18 18:03 Miralax PO 17 gm BID DEANGELO Administration - Patient Studies Lab Studies: Microbiology Studies 09/08/18 12:30 Blood Culture - Preliminary Blood NO GROWTH AFTER 4 DAYS 09/08/18 12:00 Blood Culture - Preliminary Blood NO GROWTH AFTER 4 DAYS 09/09/18 22:42 Gram Stain - Final Sputum Induced Sputum Culture - Final NORMAL ORAL DIMITRI Lab Studies 09/13/18 09/13/18 09/13/18 Range/Units 07:33 05:40 05:40 WBC (4.5-11.0) 10^3/uL RBC (3.5-6.1) 10^6/uL Hgb (12.0-16.0) g/dL Hct (36.0-48.0) % MCV (80.0-105.0) fl MCH (25.0-35.0) pg MCHC (31.0-37.0) g/dl RDW (11.5-14.5) % Plt Count (120.0-450.0) 10^3/uL MPV (7.0-11.0) fl Neut % (Auto) (50.0-68.0) % Lymph % (Auto) (22.0-35.0) % Crosby % (Auto) (1.0-6.0) % Eos % (Auto) (1.5-5.0) % Baso % (Auto) (0.0-3.0) % Lymph # (Auto) (1.2-3.4) Crosby # (Auto) (0.1-0.6) Eos # (Auto) (0.0-0.7) Baso # (Auto) (0.0-2.0) K/mm3 Absolute Neuts (auto) (1.4-6.5) PT 13.0 H (9.4-12.5) SECONDS INR 1.15 APTT 106.7 H* (26.9-38.3) Seconds pCO2 (35-45) mm/Hg pO2 (80-100) mm/Hg HCO3 (21-28) mmol/L ABG pH (7.35-7.45) ABG Total CO2 (22-28) mmol.L ABG O2 Saturation (95-98) % ABG O2 Content (15-23) ML/dl ABG Base Excess (-2.0-3.0) mmol/L ABG Hemoglobin (11.7-17.4) g/dL ABG Carboxyhemoglobin (0.5-1.5) % POC ABG HHb (Measured) (0-5) % ABG Methemoglobin (0.0-3.0) % ABG O2 Capacity (16-24) mL/dl Hgb O2 Saturation (95.0-98.0) % FiO2 % Crit Value Called To Crit Value Called By Blood Gas Notified Time Sodium 136 (132-148) mmol/L Potassium 5.2 H (3.6-5.0) mmol/L Chloride 95 L (98-107) mmol/L Carbon Dioxide 38 H (21-33) mmol/L Anion Gap 8 L (10-20) BUN 32 H (7-21) mg/dL Creatinine 0.9 (0.7-1.2) mg/dl Est GFR ( Amer) > 60 Est GFR (Non-Af Amer) > 60 POC Glucose (mg/dL) 100 (65-110) mg/dL Random Glucose 108 (70-110) mg/dL Calcium 8.4 (8.4-10.5) mg/dL Phosphorus 4.2 (2.5-4.5) mg/dL Magnesium 1.8 (1.7-2.2) mg/dL Total Bilirubin 0.7 (0.2-1.3) mg/dL Direct Bilirubin 0.5 H (0.0-0.4) mg/dL AST 27 (14-36) U/L ALT 21 (7-56) U/L Alkaline Phosphatase 55 (38-126) U/L NT-Pro-B Natriuret Pep 1330 H (0-450) pg/mL Total Protein 5.5 L (5.8-8.3) g/dL Albumin 2.8 L (3.0-4.8) g/dL Globulin 2.8 gm/dL Albumin/Globulin Ratio 1.0 L (1.1-1.8) Influenza Type A Ab (<1:8) titer Influenza Type B Ab (<1:8) titer Blood Type Blood Type Confirm Antibody Screen Crossmatch BBK History Checked 09/13/18 09/12/18 09/12/18 Range/Units 05:40 23:55 21:40 WBC 8.0 (4.5-11.0) 10^3/uL RBC 3.85 (3.5-6.1) 10^6/uL Hgb 11.3 L (12.0-16.0) g/dL Hct 38.3 (36.0-48.0) % MCV 99.5 (80.0-105.0) fl MCH 29.4 (25.0-35.0) pg MCHC 29.5 L (31.0-37.0) g/dl RDW 14.5 (11.5-14.5) % Plt Count 207 (120.0-450.0) 10^3/uL MPV 10.0 (7.0-11.0) fl Neut % (Auto) 86.4 H (50.0-68.0) % Lymph % (Auto) 5.0 L (22.0-35.0) % Crosby % (Auto) 8.5 H (1.0-6.0) % Eos % (Auto) 0.0 L (1.5-5.0) % Baso % (Auto) 0.1 (0.0-3.0) % Lymph # (Auto) 0.4 L (1.2-3.4) Crosby # (Auto) 0.7 H (0.1-0.6) Eos # (Auto) 0.0 (0.0-0.7) Baso # (Auto) 0.01 (0.0-2.0) K/mm3 Absolute Neuts (auto) 6.90 H (1.4-6.5) PT (9.4-12.5) SECONDS INR APTT 137.7 H* (26.9-38.3) Seconds pCO2 (35-45) mm/Hg pO2 (80-100) mm/Hg HCO3 (21-28) mmol/L ABG pH (7.35-7.45) ABG Total CO2 (22-28) mmol.L ABG O2 Saturation (95-98) % ABG O2 Content (15-23) ML/dl ABG Base Excess (-2.0-3.0) mmol/L ABG Hemoglobin (11.7-17.4) g/dL ABG Carboxyhemoglobin (0.5-1.5) % POC ABG HHb (Measured) (0-5) % ABG Methemoglobin (0.0-3.0) % ABG O2 Capacity (16-24) mL/dl Hgb O2 Saturation (95.0-98.0) % FiO2 % Crit Value Called To Crit Value Called By Blood Gas Notified Time Sodium (132-148) mmol/L Potassium (3.6-5.0) mmol/L Chloride (98-107) mmol/L Carbon Dioxide (21-33) mmol/L Anion Gap (10-20) BUN (7-21) mg/dL Creatinine (0.7-1.2) mg/dl Est GFR ( Amer) Est GFR (Non-Af Amer) POC Glucose (mg/dL) 122 H (65-110) mg/dL Random Glucose (70-110) mg/dL Calcium (8.4-10.5) mg/dL Phosphorus (2.5-4.5) mg/dL Magnesium (1.7-2.2) mg/dL Total Bilirubin (0.2-1.3) mg/dL Direct Bilirubin (0.0-0.4) mg/dL AST (14-36) U/L ALT (7-56) U/L Alkaline Phosphatase (38-126) U/L NT-Pro-B Natriuret Pep (0-450) pg/mL Total Protein (5.8-8.3) g/dL Albumin (3.0-4.8) g/dL Globulin gm/dL Albumin/Globulin Ratio (1.1-1.8) Influenza Type A Ab (<1:8) titer Influenza Type B Ab (<1:8) titer Blood Type Blood Type Confirm Antibody Screen Crossmatch BBK History Checked 09/12/18 09/12/18 09/12/18 Range/Units 16:29 12:45 12:15 WBC (4.5-11.0) 10^3/uL RBC (3.5-6.1) 10^6/uL Hgb (12.0-16.0) g/dL Hct (36.0-48.0) % MCV (80.0-105.0) fl MCH (25.0-35.0) pg MCHC (31.0-37.0) g/dl RDW (11.5-14.5) % Plt Count (120.0-450.0) 10^3/uL MPV (7.0-11.0) fl Neut % (Auto) (50.0-68.0) % Lymph % (Auto) (22.0-35.0) % Crosby % (Auto) (1.0-6.0) % Eos % (Auto) (1.5-5.0) % Baso % (Auto) (0.0-3.0) % Lymph # (Auto) (1.2-3.4) Crosby # (Auto) (0.1-0.6) Eos # (Auto) (0.0-0.7) Baso # (Auto) (0.0-2.0) K/mm3 Absolute Neuts (auto) (1.4-6.5) PT (9.4-12.5) SECONDS INR APTT (26.9-38.3) Seconds pCO2 (35-45) mm/Hg pO2 (80-100) mm/Hg HCO3 (21-28) mmol/L ABG pH (7.35-7.45) ABG Total CO2 (22-28) mmol.L ABG O2 Saturation (95-98) % ABG O2 Content (15-23) ML/dl ABG Base Excess (-2.0-3.0) mmol/L ABG Hemoglobin (11.7-17.4) g/dL ABG Carboxyhemoglobin (0.5-1.5) % POC ABG HHb (Measured) (0-5) % ABG Methemoglobin (0.0-3.0) % ABG O2 Capacity (16-24) mL/dl Hgb O2 Saturation (95.0-98.0) % FiO2 % Crit Value Called To Crit Value Called By Blood Gas Notified Time Sodium (132-148) mmol/L Potassium (3.6-5.0) mmol/L Chloride (98-107) mmol/L Carbon Dioxide (21-33) mmol/L Anion Gap (10-20) BUN (7-21) mg/dL Creatinine (0.7-1.2) mg/dl Est GFR ( Amer) Est GFR (Non-Af Amer) POC Glucose (mg/dL) 118 H (65-110) mg/dL Random Glucose (70-110) mg/dL Calcium (8.4-10.5) mg/dL Phosphorus (2.5-4.5) mg/dL Magnesium (1.7-2.2) mg/dL Total Bilirubin (0.2-1.3) mg/dL Direct Bilirubin (0.0-0.4) mg/dL AST (14-36) U/L ALT (7-56) U/L Alkaline Phosphatase (38-126) U/L NT-Pro-B Natriuret Pep (0-450) pg/mL Total Protein (5.8-8.3) g/dL Albumin (3.0-4.8) g/dL Globulin gm/dL Albumin/Globulin Ratio (1.1-1.8) Influenza Type A Ab (<1:8) titer Influenza Type B Ab (<1:8) titer Blood Type O POSITIVE Blood Type Confirm O POSITIVE Antibody Screen Negative Crossmatch See Detail BBK History Checked No verified bt 09/12/18 09/12/18 09/08/18 Range/Units 11:12 10:25 23:30 WBC (4.5-11.0) 10^3/uL RBC (3.5-6.1) 10^6/uL Hgb (12.0-16.0) g/dL Hct (36.0-48.0) % MCV (80.0-105.0) fl MCH (25.0-35.0) pg MCHC (31.0-37.0) g/dl RDW (11.5-14.5) % Plt Count (120.0-450.0) 10^3/uL MPV (7.0-11.0) fl Neut % (Auto) (50.0-68.0) % Lymph % (Auto) (22.0-35.0) % Crosby % (Auto) (1.0-6.0) % Eos % (Auto) (1.5-5.0) % Baso % (Auto) (0.0-3.0) % Lymph # (Auto) (1.2-3.4) Crosby # (Auto) (0.1-0.6) Eos # (Auto) (0.0-0.7) Baso # (Auto) (0.0-2.0) K/mm3 Absolute Neuts (auto) (1.4-6.5) PT (9.4-12.5) SECONDS INR APTT (26.9-38.3) Seconds pCO2 63 H (35-45) mm/Hg pO2 64.0 L (80-100) mm/Hg HCO3 40.9 H* (21-28) mmol/L ABG pH 7.42 (7.35-7.45) ABG Total CO2 42.8 H (22-28) mmol.L ABG O2 Saturation 95.1 (95-98) % ABG O2 Content 13.3 L (15-23) ML/dl ABG Base Excess 14.2 H (-2.0-3.0) mmol/L ABG Hemoglobin 10.2 L (11.7-17.4) g/dL ABG Carboxyhemoglobin 2.4 H (0.5-1.5) % POC ABG HHb (Measured) 4.7 (0-5) % ABG Methemoglobin 0.8 (0.0-3.0) % ABG O2 Capacity 14.0 L (16-24) mL/dl Hgb O2 Saturation 92.1 L (95.0-98.0) % FiO2 60.0 % Crit Value Called To Marleny calzada Crit Value Called By Joey liegh Blood Gas Notified Time 1030 Sodium (132-148) mmol/L Potassium (3.6-5.0) mmol/L Chloride (98-107) mmol/L Carbon Dioxide (21-33) mmol/L Anion Gap (10-20) BUN (7-21) mg/dL Creatinine (0.7-1.2) mg/dl Est GFR ( Amer) Est GFR (Non-Af Amer) POC Glucose (mg/dL) 111 H (65-110) mg/dL Random Glucose (70-110) mg/dL Calcium (8.4-10.5) mg/dL Phosphorus (2.5-4.5) mg/dL Magnesium (1.7-2.2) mg/dL Total Bilirubin (0.2-1.3) mg/dL Direct Bilirubin (0.0-0.4) mg/dL AST (14-36) U/L ALT (7-56) U/L Alkaline Phosphatase (38-126) U/L NT-Pro-B Natriuret Pep (0-450) pg/mL Total Protein (5.8-8.3) g/dL Albumin (3.0-4.8) g/dL Globulin gm/dL Albumin/Globulin Ratio (1.1-1.8) Influenza Type A Ab <1:8 (<1:8) titer Influenza Type B Ab <1:8 (<1:8) titer Blood Type Blood Type Confirm Antibody Screen Crossmatch BBK History Checked Laboratory Results - last 24 hr 09/08/18 09/12/18 09/12/18 23:30 10:25 11:12 WBC RBC Hgb Hct MCV MCH MCHC RDW Plt Count MPV Neut % (Auto) Lymph % (Auto) Crosby % (Auto) Eos % (Auto) Baso % (Auto) Lymph # (Auto) Crosby # (Auto) Eos # (Auto) Baso # (Auto) Absolute Neuts (auto) PT INR APTT pCO2 63 H pO2 64.0 L HCO3 40.9 H* ABG pH 7.42 ABG Total CO2 42.8 H ABG O2 Saturation 95.1 ABG O2 Content 13.3 L ABG Base Excess 14.2 H ABG Hemoglobin 10.2 L ABG Carboxyhemoglobin 2.4 H POC ABG HHb (Measured) 4.7 ABG Methemoglobin 0.8 ABG O2 Capacity 14.0 L Hgb O2 Saturation 92.1 L FiO2 60.0 Crit Value Called To Marleny calzada Crit Value Called By Joey leigh Blood Gas Notified Time 1030 Sodium Potassium Chloride Carbon Dioxide Anion Gap BUN Creatinine Est GFR ( Amer) Est GFR (Non-Af Amer) POC Glucose (mg/dL) 111 H Random Glucose Calcium Phosphorus Magnesium Total Bilirubin Direct Bilirubin AST ALT Alkaline Phosphatase NT-Pro-B Natriuret Pep Total Protein Albumin Globulin Albumin/Globulin Ratio Influenza Type A Ab <1:8 Influenza Type B Ab <1:8 Blood Type Blood Type Confirm Antibody Screen Crossmatch BBK History Checked 09/12/18 09/12/18 09/12/18 12:15 12:45 16:29 WBC RBC Hgb Hct MCV MCH MCHC RDW Plt Count MPV Neut % (Auto) Lymph % (Auto) Crosby % (Auto) Eos % (Auto) Baso % (Auto) Lymph # (Auto) Crosby # (Auto) Eos # (Auto) Baso # (Auto) Absolute Neuts (auto) PT INR APTT pCO2 pO2 HCO3 ABG pH ABG Total CO2 ABG O2 Saturation ABG O2 Content ABG Base Excess ABG Hemoglobin ABG Carboxyhemoglobin POC ABG HHb (Measured) ABG Methemoglobin ABG O2 Capacity Hgb O2 Saturation FiO2 Crit Value Called To Crit Value Called By Blood Gas Notified Time Sodium Potassium Chloride Carbon Dioxide Anion Gap BUN Creatinine Est GFR ( Amer) Est GFR (Non-Af Amer) POC Glucose (mg/dL) 118 H Random Glucose Calcium Phosphorus Magnesium Total Bilirubin Direct Bilirubin AST ALT Alkaline Phosphatase NT-Pro-B Natriuret Pep Total Protein Albumin Globulin Albumin/Globulin Ratio Influenza Type A Ab Influenza Type B Ab Blood Type O POSITIVE Blood Type Confirm O POSITIVE Antibody Screen Negative Crossmatch See Detail BBK History Checked No verified bt 09/12/18 09/12/18 09/13/18 21:40 23:55 05:40 WBC 8.0 RBC 3.85 Hgb 11.3 L Hct 38.3 MCV 99.5 MCH 29.4 MCHC 29.5 L RDW 14.5 Plt Count 207 MPV 10.0 Neut % (Auto) 86.4 H Lymph % (Auto) 5.0 L Crosby % (Auto) 8.5 H Eos % (Auto) 0.0 L Baso % (Auto) 0.1 Lymph # (Auto) 0.4 L Crosby # (Auto) 0.7 H Eos # (Auto) 0.0 Baso # (Auto) 0.01 Absolute Neuts (auto) 6.90 H PT INR APTT 137.7 H* pCO2 pO2 HCO3 ABG pH ABG Total CO2 ABG O2 Saturation ABG O2 Content ABG Base Excess ABG Hemoglobin ABG Carboxyhemoglobin POC ABG HHb (Measured) ABG Methemoglobin ABG O2 Capacity Hgb O2 Saturation FiO2 Crit Value Called To Crit Value Called By Blood Gas Notified Time Sodium Potassium Chloride Carbon Dioxide Anion Gap BUN Creatinine Est GFR ( Amer) Est GFR (Non-Af Amer) POC Glucose (mg/dL) 122 H Random Glucose Calcium Phosphorus Magnesium Total Bilirubin Direct Bilirubin AST ALT Alkaline Phosphatase NT-Pro-B Natriuret Pep Total Protein Albumin Globulin Albumin/Globulin Ratio Influenza Type A Ab Influenza Type B Ab Blood Type Blood Type Confirm Antibody Screen Crossmatch BBK History Checked 09/13/18 09/13/18 09/13/18 05:40 05:40 07:33 WBC RBC Hgb Hct MCV MCH MCHC RDW Plt Count MPV Neut % (Auto) Lymph % (Auto) Crosby % (Auto) Eos % (Auto) Baso % (Auto) Lymph # (Auto) Crosby # (Auto) Eos # (Auto) Baso # (Auto) Absolute Neuts (auto) PT 13.0 H INR 1.15 APTT 106.7 H* pCO2 pO2 HCO3 ABG pH ABG Total CO2 ABG O2 Saturation ABG O2 Content ABG Base Excess ABG Hemoglobin ABG Carboxyhemoglobin POC ABG HHb (Measured) ABG Methemoglobin ABG O2 Capacity Hgb O2 Saturation FiO2 Crit Value Called To Crit Value Called By Blood Gas Notified Time Sodium 136 Potassium 5.2 H Chloride 95 L Carbon Dioxide 38 H Anion Gap 8 L BUN 32 H Creatinine 0.9 Est GFR ( Amer) > 60 Est GFR (Non-Af Amer) > 60 POC Glucose (mg/dL) 100 Random Glucose 108 Calcium 8.4 Phosphorus 4.2 Magnesium 1.8 Total Bilirubin 0.7 Direct Bilirubin 0.5 H AST 27 ALT 21 Alkaline Phosphatase 55 NT-Pro-B Natriuret Pep 1330 H Total Protein 5.5 L Albumin 2.8 L Globulin 2.8 Albumin/Globulin Ratio 1.0 L Influenza Type A Ab Influenza Type B Ab Blood Type Blood Type Confirm Antibody Screen Crossmatch BBK History Checked Radiology Impressions: Radiology Impressions Abdomen/Pelvis CT 09/12/18 11:28 IMPRESSION: Findings suggestive of hemorrhage/hematoma involving the proximal medial thigh musculature. This area is incompletely visualized on this exam. Minimal right basilar pneumothorax, significantly decreased since prior exam. Cholelithiasis. Small bilateral pleural effusions, right greater than left, unchanged. Incompletely distended urinary bladder with wall thickening. Additional findings as above. Fingerstick Blood Sugar Results: 100 Critical Care Progress Note - Nutrition Nutrition: Nutrition Category Date Time Status Heart Healthy Diet [DIET] Diets 09/12/18 Lunch Active Assessment/Plan - Assessment and Plan (Free Text) Assessment: Pt is a 73 yo female who was admitted to ICU for AMS and respiratory distress, later found to have a right sided PE with possible PNA and biventricular dysfunction, as well as CHF exacerbation. Plan: Neuro -AAO x3 in NAD -maintain normthermia Cardio -maintain MAP> 65 -BNP 1330 -dobutamine 2.5 mcg/kg/min, lasix 40 mg daily -trops 0.13, 0.08 likely due to RV strain in the setting of PE -Echo: moderate to severe LV dysfunction. Right ventricular hypokinesia and strain in the setting of PE -cardio consulted, following Pulm -resolved acute respiratory failure -on high flow -solu-medrol 40 daily, xopenex q6h deangelo, acetaolamide 250 bid -PTT 106, AB.42/63/64/40.9 -CXR: vascular congestion. possible PNA. Repeat CXR shows improvement -LE doppler negative for DVT -CT chest: subsegmental right lung PE with small pleural effusion -CT right LE: large psterir lateral hematoma [id number] -IR consulted. consider IVC filter GI -tolerating diet well Heme - monitor H/H - Hgb 11.3 ID -possible cellulitis on abdominal wall, hip -continue topical nystatin -CPK 79 -UCx, MRSA, BCx, sputum Cx, legionella negative -strep Ag not detected -low procal -continue meropenem, doxycycline PO -afebrile, no leukocytosis -ID following /Renal -CKD with proteinurea -maintain euvolemia, euglycemia -UDS negative -nephro consulted Dispo: try to extubate tomorrow Pt seen, examined, assessment and plan discussed with Dr Angelica Menezes PGY1 - Date & Time Date: 09/13/18 Time: 08:00 <June Leyva - Last Filed: 09/13/18 18:26> CCU Objective - Vital Signs / Intake & Output Vital Signs (Last 4 hours): Vital Signs Resp 09/13/18 16:18 20 Intake and Output (Last 8hrs): Intake & Output 09/13/18 09/13/18 09/13/18 06:59 14:59 22:59 Intake Total 623 192 60 Output Total 1600 Balance -977 192 60 Weight 106.413 kg Intake: IV 423 192 60 dobutamine 100 heparin 205 Oral 200 Output: Urine 1600 Urethral (Alonzo) 1600 - Medications Active Medications: Active Medications Generic Name Dose Route Start Last Admin Trade Name Freq PRN Reason Stop Dose Admin Acetaminophen 650 mg 09/08/18 14:22 Tylenol 325mg Tab PO Q6 PRN TEMP>=99.5F Acetaminophen 650 mg 09/08/18 14:22 Tylenol 650 Mg Supp RC Q6H PRN TEMP>=99.5F Acetazolamide 250 mg 09/12/18 10:30 09/13/18 17:38 Diamox 250 Mg Tab PO 09/14/18 10:31 250 mg BID DEANGELO Administration Albuterol/Ipratropium 3 ml 09/13/18 14:00 09/13/18 13:20 Duoneb 3 Mg/0.5 Mg (3 Ml) Ud IH 3 ml [id number] DEANGELO Administration Allopurinol 100 mg 09/09/18 10:00 09/13/18 09:13 Zyloprim PO 100 mg DAILY DEANGELO Administration Dextrose 0 ml 09/08/18 22:59 Dextrose 50% Inj IV STAT PRN Hypoglycemia Protocol Protocol Doxycycline Hyclate 100 mg 09/10/18 22:00 09/13/18 09:13 Doryx PO 100 mg Q12 DEANGELO Administration Protocol Ergocalciferol 1 cap 09/10/18 14:30 09/10/18 18:32 Drisdol 50,000 Intl Units Cap PO 1 cap Q7D DEANGELO Administration Furosemide 40 mg 09/11/18 10:00 09/13/18 09:12 Lasix IVP 40 mg DAILY DEANGELO Administration Dextrose 1,000 mls @ 0 mls/hr 09/08/18 22:59 Dextrose 5% In Water 1000 Ml IV .Q0M PRN Hypoglycemia Protocol Protocol Per Protocol Heparin Sodium/Sodium Chloride 25,000 units in 250 mls @ 19.701 mls/hr 09/12/18 14:38 09/13/18 15:34 Heparin 74790 Units/250ml 1/2 Normal Saline IV 11 units/kg/hr .[id number] PRN 12.04 mls/hr ADJUST RATE PER PROTOCOL Titration Protocol 18 UNITS/KG/HR Insulin Human Lispro 0 units 09/11/18 22:00 09/13/18 16:06 Humalog High SC Not Given ACHS DEANGELO Protocol Lactic Acid 0 ea 09/10/18 10:00 09/13/18 09:14 Lac-Hydrin 12% Cream (140 G) TOP 1 applic DAILY DEANGELO Administration Losartan Potassium 25 mg 09/14/18 10:00 Cozaar PO DAILY DEANGELO Methylprednisolone 20 mg 09/09/18 08:15 09/13/18 08:08 Solu-Medrol IVP 20 mg Q12H DEANGELO Administration Nicotine 1 patch 09/09/18 10:00 09/13/18 09:12 Nicoderm Cq TD 1 patch DAILY DENAGELO Administration Nystatin 0 gm 09/08/18 18:00 09/13/18 17:41 Nystop Topical Powder TOP 1 pdr Q6 DEANGELO Administration Nystatin 0 ea 09/08/18 23:00 09/13/18 17:40 Mycostatin Cream TOP 1 unit TID DEANGELO Administration Ondansetron HCl 4 mg 09/08/18 14:22 Zofran Inj IVP Q4H PRN Nausea/Vomiting Pantoprazole Sodium 40 mg 09/11/18 06:00 09/13/18 16:06 Protonix Ec Tab PO 40 mg 0600,1600 DEANGELO Administration Patiromer 8.4 gm 09/14/18 10:00 V[place] PO 09/16/18 10:01 DAILY DEANGELO Polyethylene Glycol 17 gm 09/11/18 10:00 09/13/18 17:39 Miralax PO 17 gm BID DEANGELO Administration - Patient Studies Lab Studies: Microbiology Studies 09/08/18 12:00 Blood Culture - Final Blood NO GROWTH AFTER 5 DAYS Gram Stain - Final TEST NOT PERFORMED 09/08/18 12:30 Blood Culture - Final Blood NO GROWTH AFTER 5 DAYS Gram Stain - Final TEST NOT PERFORMED Lab Studies 09/13/18 09/13/18 09/13/18 Range/Units 16:04 14:02 11:17 WBC (4.5-11.0) 10^3/uL RBC (3.5-6.1) 10^6/uL Hgb (12.0-16.0) g/dL Hct (36.0-48.0) % MCV (80.0-105.0) fl MCH (25.0-35.0) pg MCHC (31.0-37.0) g/dl RDW (11.5-14.5) % Plt Count (120.0-450.0) 10^3/uL MPV (7.0-11.0) fl Neut % (Auto) (50.0-68.0) % Lymph % (Auto) (22.0-35.0) % Crosby % (Auto) (1.0-6.0) % Eos % (Auto) (1.5-5.0) % Baso % (Auto) (0.0-3.0) % Lymph # (Auto) (1.2-3.4) Crosby # (Auto) (0.1-0.6) Eos # (Auto) (0.0-0.7) Baso # (Auto) (0.0-2.0) K/mm3 Absolute Neuts (auto) (1.4-6.5) PT (9.4-12.5) SECONDS INR APTT 99.8 H (26.9-38.3) Seconds Sodium (132-148) mmol/L Potassium (3.6-5.0) mmol/L Chloride (98-107) mmol/L Carbon Dioxide (21-33) mmol/L Anion Gap (10-20) BUN (7-21) mg/dL Creatinine (0.7-1.2) mg/dl Est GFR ( Amer) Est GFR (Non-Af Amer) POC Glucose (mg/dL) 127 H 127 H (65-110) mg/dL Random Glucose (70-110) mg/dL Calcium (8.4-10.5) mg/dL Phosphorus (2.5-4.5) mg/dL Magnesium (1.7-2.2) mg/dL Total Bilirubin (0.2-1.3) mg/dL Direct Bilirubin (0.0-0.4) mg/dL AST (14-36) U/L ALT (7-56) U/L Alkaline Phosphatase (38-126) U/L NT-Pro-B Natriuret Pep (0-450) pg/mL Total Protein (5.8-8.3) g/dL Albumin (3.0-4.8) g/dL Globulin gm/dL Albumin/Globulin Ratio (1.1-1.8) Influenza Type A Ab (<1:8) titer Influenza Type B Ab (<1:8) titer 09/13/18 09/13/18 09/13/18 Range/Units 07:33 05:40 05:40 WBC (4.5-11.0) 10^3/uL RBC (3.5-6.1) 10^6/uL Hgb (12.0-16.0) g/dL Hct (36.0-48.0) % MCV (80.0-105.0) fl MCH (25.0-35.0) pg MCHC (31.0-37.0) g/dl RDW (11.5-14.5) % Plt Count (120.0-450.0) 10^3/uL MPV (7.0-11.0) fl Neut % (Auto) (50.0-68.0) % Lymph % (Auto) (22.0-35.0) % Crosby % (Auto) (1.0-6.0) % Eos % (Auto) (1.5-5.0) % Baso % (Auto) (0.0-3.0) % Lymph # (Auto) (1.2-3.4) Crosby # (Auto) (0.1-0.6) Eos # (Auto) (0.0-0.7) Baso # (Auto) (0.0-2.0) K/mm3 Absolute Neuts (auto) (1.4-6.5) PT 13.0 H (9.4-12.5) SECONDS INR 1.15 APTT 106.7 H* (26.9-38.3) Seconds Sodium 136 (132-148) mmol/L Potassium 5.2 H (3.6-5.0) mmol/L Chloride 95 L (98-107) mmol/L Carbon Dioxide 38 H (21-33) mmol/L Anion Gap 8 L (10-20) BUN 32 H (7-21) mg/dL Creatinine 0.9 (0.7-1.2) mg/dl Est GFR ( Amer) > 60 Est GFR (Non-Af Amer) > 60 POC Glucose (mg/dL) 100 (65-110) mg/dL Random Glucose 108 (70-110) mg/dL Calcium 8.4 (8.4-10.5) mg/dL Phosphorus 4.2 (2.5-4.5) mg/dL Magnesium 1.8 (1.7-2.2) mg/dL Total Bilirubin 0.7 (0.2-1.3) mg/dL Direct Bilirubin 0.5 H (0.0-0.4) mg/dL AST 27 (14-36) U/L ALT 21 (7-56) U/L Alkaline Phosphatase 55 (38-126) U/L NT-Pro-B Natriuret Pep 1330 H (0-450) pg/mL Total Protein 5.5 L (5.8-8.3) g/dL Albumin 2.8 L (3.0-4.8) g/dL Globulin 2.8 gm/dL Albumin/Globulin Ratio 1.0 L (1.1-1.8) Influenza Type A Ab (<1:8) titer Influenza Type B Ab (<1:8) titer 09/13/18 09/12/18 09/12/18 Range/Units 05:40 23:55 21:40 WBC 8.0 (4.5-11.0) 10^3/uL RBC 3.85 (3.5-6.1) 10^6/uL Hgb 11.3 L (12.0-16.0) g/dL Hct 38.3 (36.0-48.0) % MCV 99.5 (80.0-105.0) fl MCH 29.4 (25.0-35.0) pg MCHC 29.5 L (31.0-37.0) g/dl RDW 14.5 (11.5-14.5) % Plt Count 207 (120.0-450.0) 10^3/uL MPV 10.0 (7.0-11.0) fl Neut % (Auto) 86.4 H (50.0-68.0) % Lymph % (Auto) 5.0 L (22.0-35.0) % Crosby % (Auto) 8.5 H (1.0-6.0) % Eos % (Auto) 0.0 L (1.5-5.0) % Baso % (Auto) 0.1 (0.0-3.0) % Lymph # (Auto) 0.4 L (1.2-3.4) Crosby # (Auto) 0.7 H (0.1-0.6) Eos # (Auto) 0.0 (0.0-0.7) Baso # (Auto) 0.01 (0.0-2.0) K/mm3 Absolute Neuts (auto) 6.90 H (1.4-6.5) PT (9.4-12.5) SECONDS INR APTT 137.7 H* (26.9-38.3) Seconds Sodium (132-148) mmol/L Potassium (3.6-5.0) mmol/L Chloride (98-107) mmol/L Carbon Dioxide (21-33) mmol/L Anion Gap (10-20) BUN (7-21) mg/dL Creatinine (0.7-1.2) mg/dl Est GFR ( Amer) Est GFR (Non-Af Amer) POC Glucose (mg/dL) 122 H (65-110) mg/dL Random Glucose (70-110) mg/dL Calcium (8.4-10.5) mg/dL Phosphorus (2.5-4.5) mg/dL Magnesium (1.7-2.2) mg/dL Total Bilirubin (0.2-1.3) mg/dL Direct Bilirubin (0.0-0.4) mg/dL AST (14-36) U/L ALT (7-56) U/L Alkaline Phosphatase (38-126) U/L NT-Pro-B Natriuret Pep (0-450) pg/mL Total Protein (5.8-8.3) g/dL Albumin (3.0-4.8) g/dL Globulin gm/dL Albumin/Globulin Ratio (1.1-1.8) Influenza Type A Ab (<1:8) titer Influenza Type B Ab (<1:8) titer 09/12/18 09/08/18 Range/Units 16:29 23:30 WBC (4.5-11.0) 10^3/uL RBC (3.5-6.1) 10^6/uL Hgb (12.0-16.0) g/dL Hct (36.0-48.0) % MCV (80.0-105.0) fl MCH (25.0-35.0) pg MCHC (31.0-37.0) g/dl RDW (11.5-14.5) % Plt Count (120.0-450.0) 10^3/uL MPV (7.0-11.0) fl Neut % (Auto) (50.0-68.0) % Lymph % (Auto) (22.0-35.0) % Crosby % (Auto) (1.0-6.0) % Eos % (Auto) (1.5-5.0) % Baso % (Auto) (0.0-3.0) % Lymph # (Auto) (1.2-3.4) Crosby # (Auto) (0.1-0.6) Eos # (Auto) (0.0-0.7) Baso # (Auto) (0.0-2.0) K/mm3 Absolute Neuts (auto) (1.4-6.5) PT (9.4-12.5) SECONDS INR APTT (26.9-38.3) Seconds Sodium (132-148) mmol/L Potassium (3.6-5.0) mmol/L Chloride (98-107) mmol/L Carbon Dioxide (21-33) mmol/L Anion Gap (10-20) BUN (7-21) mg/dL Creatinine (0.7-1.2) mg/dl Est GFR ( Amer) Est GFR (Non-Af Amer) POC Glucose (mg/dL) 118 H (65-110) mg/dL Random Glucose (70-110) mg/dL Calcium (8.4-10.5) mg/dL Phosphorus (2.5-4.5) mg/dL Magnesium (1.7-2.2) mg/dL Total Bilirubin (0.2-1.3) mg/dL Direct Bilirubin (0.0-0.4) mg/dL AST (14-36) U/L ALT (7-56) U/L Alkaline Phosphatase (38-126) U/L NT-Pro-B Natriuret Pep (0-450) pg/mL Total Protein (5.8-8.3) g/dL Albumin (3.0-4.8) g/dL Globulin gm/dL Albumin/Globulin Ratio (1.1-1.8) Influenza Type A Ab <1:8 (<1:8) titer Influenza Type B Ab <1:8 (<1:8) titer Laboratory Results - last 24 hr 09/08/18 09/12/18 09/12/18 23:30 16:29 21:40 WBC RBC Hgb Hct MCV MCH MCHC RDW Plt Count MPV Neut % (Auto) Lymph % (Auto) Crosby % (Auto) Eos % (Auto) Baso % (Auto) Lymph # (Auto) Crosby # (Auto) Eos # (Auto) Baso # (Auto) Absolute Neuts (auto) PT INR APTT Sodium Potassium Chloride Carbon Dioxide Anion Gap BUN Creatinine Est GFR ( Amer) Est GFR (Non-Af Amer) POC Glucose (mg/dL) 118 H 122 H Random Glucose Calcium Phosphorus Magnesium Total Bilirubin Direct Bilirubin AST ALT Alkaline Phosphatase NT-Pro-B Natriuret Pep Total Protein Albumin Globulin Albumin/Globulin Ratio Influenza Type A Ab <1:8 Influenza Type B Ab <1:8 09/12/18 09/13/18 09/13/18 23:55 05:40 05:40 WBC 8.0 RBC 3.85 Hgb 11.3 L Hct 38.3 MCV 99.5 MCH 29.4 MCHC 29.5 L RDW 14.5 Plt Count 207 MPV 10.0 Neut % (Auto) 86.4 H Lymph % (Auto) 5.0 L Crosby % (Auto) 8.5 H Eos % (Auto) 0.0 L Baso % (Auto) 0.1 Lymph # (Auto) 0.4 L Crosby # (Auto) 0.7 H Eos # (Auto) 0.0 Baso # (Auto) 0.01 Absolute Neuts (auto) 6.90 H PT INR APTT 137.7 H* Sodium 136 Potassium 5.2 H Chloride 95 L Carbon Dioxide 38 H Anion Gap 8 L BUN 32 H Creatinine 0.9 Est GFR ( Amer) > 60 Est GFR (Non-Af Amer) > 60 POC Glucose (mg/dL) Random Glucose 108 Calcium 8.4 Phosphorus 4.2 Magnesium 1.8 Total Bilirubin 0.7 Direct Bilirubin 0.5 H AST 27 ALT 21 Alkaline Phosphatase 55 NT-Pro-B Natriuret Pep 1330 H Total Protein 5.5 L Albumin 2.8 L Globulin 2.8 Albumin/Globulin Ratio 1.0 L Influenza Type A Ab Influenza Type B Ab 09/13/18 09/13/18 09/13/18 05:40 07:33 11:17 WBC RBC Hgb Hct MCV MCH MCHC RDW Plt Count MPV Neut % (Auto) Lymph % (Auto) Crosby % (Auto) Eos % (Auto) Baso % (Auto) Lymph # (Auto) Crosby # (Auto) Eos # (Auto) Baso # (Auto) Absolute Neuts (auto) PT 13.0 H INR 1.15 APTT 106.7 H* Sodium Potassium Chloride Carbon Dioxide Anion Gap BUN Creatinine Est GFR ( Amer) Est GFR (Non-Af Amer) POC Glucose (mg/dL) 100 127 H Random Glucose Calcium Phosphorus Magnesium Total Bilirubin Direct Bilirubin AST ALT Alkaline Phosphatase NT-Pro-B Natriuret Pep Total Protein Albumin Globulin Albumin/Globulin Ratio Influenza Type A Ab Influenza Type B Ab 09/13/18 09/13/18 14:02 16:04 WBC RBC Hgb Hct MCV MCH MCHC RDW Plt Count MPV Neut % (Auto) Lymph % (Auto) Crosby % (Auto) Eos % (Auto) Baso % (Auto) Lymph # (Auto) Crosby # (Auto) Eos # (Auto) Baso # (Auto) Absolute Neuts (auto) PT INR APTT 99.8 H Sodium Potassium Chloride Carbon Dioxide Anion Gap BUN Creatinine Est GFR ( Amer) Est GFR (Non-Af Amer) POC Glucose (mg/dL) 127 H Random Glucose Calcium Phosphorus Magnesium Total Bilirubin Direct Bilirubin AST ALT Alkaline Phosphatase NT-Pro-B Natriuret Pep Total Protein Albumin Globulin Albumin/Globulin Ratio Influenza Type A Ab Influenza Type B Ab Critical Care Progress Note - Nutrition Nutrition: Nutrition Category Date Time Status Heart Healthy Diet [DIET] Diets 09/12/18 Lunch Active Addendum Addendum: 09/13/18 18:26 MICU Attending Addendum Patient seen and examined [place] discussed with housestaff; agree with resident note above with the following additions/exceptions: 73F admitted for AMS and respiratory distress found to have a right sided PE. Not given tpa. Started on heparin, subsequently developed large thigh hematoma. From a pulm standpoint she is still requiring HFNC Feels better, no cp no SOB hemodynamically stable would stop heparin and insert IVC filter given hematoma would stop abx given procal <0.05 and no evid of sepsis d/c xopenex and switch to duonebs given smoking hx and likely underlying COPD cont steroids for at least 5 days neprho managing CKD / proteinuria dvt ppx on hep GI ppx not indicated Rest of care as in above resident note June Leyva MD MICU Attending
[2018-09-13] MEDS: Heparin25000 units/250ml 1/2NS 25,000 UNITS/250 ML BAG IV PRN (10:33)
--- NOTE | 2018-09-13 11:01 | CP.PCM.PN ---
Subjective - Date & Time of Evaluation Date of Evaluation: 09/13/18 Time of Evaluation: 11:01 - Subjective Subjective: Nephrology Consultation Note: Assessment: stable likely CKD 3 with UA 30 prot. renal imaging atrophy scarring Rt kidney and eGFR in 50s COPD/sys CHF exacerbation with PNA, acute PE, DM and sepsis morbid obesity acute on chronic hypercapnic respi failure with renal compensation active smoker hyperkalemia vit d def cholelithiasis Plan No acute need for renal replacement therapy at this time. Hypertension control with meds as ordered. Maintain hemodynamics stable. Avoid hypotension. Patient not on ACEI or ARB at present, will add low dose losartan. added veltassa for K Monitor Input/Output, daily weights and renal function with basic metabolic panel continue with loop diuretics. will add diamox to help with metabolic alkalosis added weekly vit D cardiology, pulmonary following Check urine spot protein/creatinine, albumin/creatinine ratio Dose meds/antibiotics for GFR >50 Glycemic control. once stable and acute process resolved, pt will need weight loss, smoking cessation, lifestyle modifications Further work up/management as per primary team Thanks for allowing me to participate in care of your patient. Will follow patient with you. Please call if any Qs. had d/w team Dr David Harrison Office: [phone] Chief Complaint; unable Reason for consult: Acute Kidney Injury HPI: Pt is a 73 F with hx of heavy smoking, no medical follow ups presented with complaints of SOB and respi distress intubated and admitted to ICU. foudn to have CHF exacerbation with PNA, PE, DM and sepsis renal consult for abnormal imaging and renal fxn eval Denies OTC/herbal meds or NSAIDs Noted recent iodinated contrast exposure as CTA. No obvious episodes of low BP. ROS: pt extubated but on high flow NC. feels better. Physical Examination: General Appearance: better appearing on O2 via NC. no acute distress, obese Vitals reviewed and noted as below Head; Atraumatic, normocephalic ENT: normal oral mucosa EYES: Pupils are equal, round and reactive to light accommodation. Eye muscles a nd extraocular movement intact. Sclera is anicteric. Neck; supple no lymphadenopathy, no thyromegaly or bruit Lungs: Normal respiratory rate/effort. Breath sounds bilateral reduced Heart: Normal rate. s1s2 normal. No rub or gallop. Extremities: 1+ edema. No varicose veins Neurological: Patient is awake alert follows commands Skin: Warm and dry. Normal turgor. No rash. Palpitation: Normal elasticity for age Abdomen: Abdomen is soft. Bowel sounds +. There is no abdominal tenderness, no guarding/rigidity no organomegaly Psych: limited insight. MSK: no joint tenderness or swelling. Digits and nails normal, no deformity : kidney or bladder not palpable. smith farrell Labs/imaging reviewed. Past medical history, past surgical history, family history, social history, allergy reviewed and noted as below Family hx: no hx of CKD. Rest non-contributory UA 30 prot. renal imaging atrophy scarring Rt kidney Objective - Vital Signs/Intake and Output Vital Signs (last 24 hours): Temp Pulse Resp BP Pulse Ox 98.2 F 73 14 148/73 95 09/13/18 04:00 09/13/18 07:00 09/13/18 10:43 09/13/18 09:12 09/13/18 07:00 Intake and Output: 09/13/18 09/13/18 06:59 18:59 Intake Total 623 132 Output Total 1600 Balance -977 132 - Medications Medications: Current Medications Acetaminophen (Tylenol 325mg Tab) 650 mg PO Q6 PRN PRN Reason: TEMP>=99.5F Acetaminophen (Tylenol 650 Mg Supp) 650 mg RC Q6H PRN PRN Reason: TEMP>=99.5F Acetazolamide (Diamox 250 Mg Tab) 250 mg PO BID [facility] Stop: 09/14/18 10:31 Last Admin: 09/13/18 09:13 Dose: 250 mg Allopurinol (Zyloprim) 100 mg PO DAILY [facility] Last Admin: 09/13/18 09:13 Dose: 100 mg Dextrose (Dextrose 50% Inj) 0 ml IV STAT PRN; Protocol PRN Reason: Hypoglycemia Protocol Doxycycline Hyclate (Doryx) 100 mg PO Q12 [facility]; Protocol Last Admin: 09/13/18 09:13 Dose: 100 mg Ergocalciferol (Drisdol 50,000 Intl Units Cap) 1 cap PO Q7D [facility] Last Admin: 09/10/18 18:32 Dose: 1 cap Furosemide (Lasix) 40 mg IVP DAILY [facility] Last Admin: 09/13/18 09:12 Dose: 40 mg Dextrose (Dextrose 5% In Water 1000 Ml) 1,000 mls @ 0 mls/hr IV .Q0M PRN; Protocol PRN Reason: Hypoglycemia Protocol Heparin Sodium/Sodium Chloride (Heparin 04677 Units/250ml 1/2 Normal Saline) 25,000 units in 250 mls @ 19.701 mls/hr IV .[id number] PRN; Protocol PRN Reason: ADJUST RATE PER PROTOCOL Last Admin: 09/13/18 10:33 Dose: 14 units/kg/hr, 15.323 mls/hr Insulin Human Lispro (Humalog High) 0 units SC ACHS [facility]; Protocol Last Admin: 09/13/18 08:08 Dose: Not Given Lactic Acid (Lac-Hydrin 12% Cream (140 G)) 0 ea TOP DAILY [facility] Last Admin: 09/13/18 09:14 Dose: 1 applic Levalbuterol HCl (Xopenex) 0.63 mg IH [id number] [facility] Last Admin: 09/13/18 07:25 Dose: 0.63 mg Losartan Potassium (Cozaar) 25 mg PO DAILY [facility] Methylprednisolone (Solu-Medrol) 20 mg IVP Q12H [facility] Last Admin: 09/13/18 08:08 Dose: 20 mg Nicotine (Nicoderm Cq) 1 patch TD DAILY [facility] Last Admin: 09/13/18 09:12 Dose: 1 patch Nystatin (Nystop Topical Powder) 0 gm TOP Q6 [facility] Last Admin: 09/13/18 05:53 Dose: 1 pdr Nystatin (Mycostatin Cream) 0 ea TOP TID [facility] Last Admin: 09/13/18 09:14 Dose: 1 unit Ondansetron HCl (Zofran Inj) 4 mg IVP Q4H PRN PRN Reason: Nausea/Vomiting Pantoprazole Sodium (Protonix Ec Tab) 40 mg PO 0600,1600 [facility] Last Admin: 09/13/18 05:53 Dose: 40 mg Patiromer (Veltassa) 8.4 gm PO DAILY [facility] Stop: 09/16/18 10:01 Polyethylene Glycol (Miralax) 17 gm PO BID [facility] Last Admin: 09/13/18 09:12 Dose: 17 gm - Labs Labs: 09/13/18 05:40 09/13/18 05:40 PT 13.0 SECONDS (9.4-12.5) H 09/13/18 05:40 INR 1.15 09/13/18 05:40 APTT 106.7 Seconds (26.9-38.3) H* 09/13/18 05:40
--- NOTE | 2018-09-13 13:17 | CP.PCM.PN ---
<Gavi Milian - Last Filed: 09/13/18 13:12> Subjective - Date & Time of Evaluation Date of Evaluation: 09/13/18 Time of Evaluation: 13:12 - Subjective Subjective: Podiatry Progress Note: Dr. Stacey AdamesF seen and evaluated in ICU this AM. NAD. No acute events overnight. No new lower extremity complaints per patient. Denies n/v/f/d/c. Objective - Vital Signs/Intake and Output Vital Signs (last 24 hours): Temp Pulse Resp BP Pulse Ox 98.2 F 71 14 156/65 H 91 L 09/13/18 04:00 09/13/18 11:01 09/13/18 10:43 09/13/18 11:01 09/13/18 11:01 Intake and Output: 09/13/18 09/13/18 06:59 18:59 Intake Total 623 132 Output Total 1600 Balance -977 132 - Medications Medications: Current Medications Acetaminophen (Tylenol 325mg Tab) 650 mg PO Q6 PRN PRN Reason: TEMP>=99.5F Acetaminophen (Tylenol 650 Mg Supp) 650 mg RC Q6H PRN PRN Reason: TEMP>=99.5F Acetazolamide (Diamox 250 Mg Tab) 250 mg PO BID [facility] Stop: 09/14/18 10:31 Last Admin: 09/13/18 09:13 Dose: 250 mg Albuterol/Ipratropium (Duoneb 3 Mg/0.5 Mg (3 Ml) Ud) 3 ml IH [id number] [facility] Allopurinol (Zyloprim) 100 mg PO DAILY [facility] Last Admin: 09/13/18 09:13 Dose: 100 mg Dextrose (Dextrose 50% Inj) 0 ml IV STAT PRN; Protocol PRN Reason: Hypoglycemia Protocol Doxycycline Hyclate (Doryx) 100 mg PO Q12 [facility]; Protocol Last Admin: 09/13/18 09:13 Dose: 100 mg Ergocalciferol (Drisdol 50,000 Intl Units Cap) 1 cap PO Q7D [facility] Last Admin: 09/10/18 18:32 Dose: 1 cap Furosemide (Lasix) 40 mg IVP DAILY [facility] Last Admin: 09/13/18 09:12 Dose: 40 mg Dextrose (Dextrose 5% In Water 1000 Ml) 1,000 mls @ 0 mls/hr IV .Q0M PRN; Protocol PRN Reason: Hypoglycemia Protocol Heparin Sodium/Sodium Chloride (Heparin 46966 Units/250ml 1/2 Normal Saline) 25,000 units in 250 mls @ 19.701 mls/hr IV .[id number] PRN; Protocol PRN Reason: ADJUST RATE PER PROTOCOL Last Admin: 09/13/18 10:33 Dose: 14 units/kg/hr, 15.323 mls/hr Insulin Human Lispro (Humalog High) 0 units SC ACHS [facility]; Protocol Last Admin: 09/13/18 11:53 Dose: Not Given Lactic Acid (Lac-Hydrin 12% Cream (140 G)) 0 ea TOP DAILY [facility] Last Admin: 09/13/18 09:14 Dose: 1 applic Losartan Potassium (Cozaar) 25 mg PO DAILY [facility] Methylprednisolone (Solu-Medrol) 20 mg IVP Q12H [facility] Last Admin: 09/13/18 08:08 Dose: 20 mg Nicotine (Nicoderm Cq) 1 patch TD DAILY [facility] Last Admin: 09/13/18 09:12 Dose: 1 patch Nystatin (Nystop Topical Powder) 0 gm TOP Q6 [facility] Last Admin: 09/13/18 11:54 Dose: 1 pdr Nystatin (Mycostatin Cream) 0 ea TOP TID [facility] Last Admin: 09/13/18 09:14 Dose: 1 unit Ondansetron HCl (Zofran Inj) 4 mg IVP Q4H PRN PRN Reason: Nausea/Vomiting Pantoprazole Sodium (Protonix Ec Tab) 40 mg PO 0600,1600 [facility] Last Admin: 09/13/18 05:53 Dose: 40 mg Patiromer (Veltassa) 8.4 gm PO DAILY [facility] Stop: 09/16/18 10:01 Polyethylene Glycol (Miralax) 17 gm PO BID [facility] Last Admin: 09/13/18 09:12 Dose: 17 gm - Labs Labs: 09/13/18 05:40 09/13/18 05:40 PT 13.0 SECONDS (9.4-12.5) H 09/13/18 05:40 INR 1.15 09/13/18 05:40 APTT 106.7 Seconds (26.9-38.3) H* 09/13/18 05:40 - Constitutional Appears: Non-toxic, No Acute Distress - Extremities Exam Additional comments: Vascular: DP/PT palpable, CFT < 3 seconds, TG warm to warm, +1 edema appreciated to b/l extremities Ortho: Unable to assess at this time Neuro: Unable to assess at this time Derm: Calluses appreciated to b/l heels, no open lesions, no erythema, no cellulitis no clinical signs of infection. Elongated, dystrophic nails to b/l digits - Neurological Exam Neurological Exam: Alert, Awake, Oriented x3 - Psychiatric Exam Psychiatric exam: Normal Affect, Normal Mood Assessment and Plan - Assessment and Plan (Free Text) Assessment: 73F with xerosis and calluses to b/l heels Plan: Patient seen and evaluated alongside attending, Dr. Ibarra Will continue to monitor skin integrity and for DTI - stable at this time Continue ammonium lactate and vitamin A&D ointment QD Continue multipodus boots at all times in bed Podiatry will continue to follow <Hong Ibarra - Last Filed: 09/16/18 08:09> Objective - Vital Signs/Intake and Output Vital Signs (last 24 hours): Temp Pulse Resp BP Pulse Ox 99.3 F 75 22 126/43 L 22 L 09/16/18 00:00 09/16/18 02:00 09/16/18 05:00 09/16/18 00:00 09/16/18 00:00 - Medications Medications: Current Medications Acetaminophen (Tylenol 325mg Tab) 650 mg PO Q6 PRN PRN Reason: TEMP>=99.5F Last Admin: 09/14/18 17:04 Dose: 650 mg Acetaminophen (Tylenol 650 Mg Supp) 650 mg RC Q6H PRN PRN Reason: TEMP>=99.5F Albuterol/Ipratropium (Duoneb 3 Mg/0.5 Mg (3 Ml) Ud) 3 ml IH [id number] [facility] Last Admin: 09/16/18 01:08 Dose: 3 ml Allopurinol (Zyloprim) 100 mg PO DAILY [facility] Last Admin: 09/15/18 09:58 Dose: 100 mg Arformoterol Tartrate (Brovana) 15 mcg IH [id number] [facility] Last Admin: 09/15/18 20:30 Dose: 15 mcg Budesonide (Pulmicort Respules) 0.5 mg IH [id number] [facility] Last Admin: 09/15/18 20:30 Dose: 0.5 mg Dextrose (Dextrose 50% Inj) 0 ml IV STAT PRN; Protocol PRN Reason: Hypoglycemia Protocol Ergocalciferol (Drisdol 50,000 Intl Units Cap) 1 cap PO Q7D [facility] Last Admin: 09/10/18 18:32 Dose: 1 cap Dextrose (Dextrose 5% In Water 1000 Ml) 1,000 mls @ 0 mls/hr IV .Q0M PRN; Prot ocol PRN Reason: Hypoglycemia Protocol Insulin Human Lispro (Humalog High) 0 units SC ACHS [facility]; Protocol Last Admin: 09/15/18 22:24 Dose: Not Given Lactic Acid (Lac-Hydrin 12% Cream (140 G)) 0 ea TOP DAILY [facility] Last Admin: 09/15/18 10:05 Dose: 1 applic Nicotine (Nicoderm Cq) 1 patch TD DAILY [facility] Last Admin: 09/15/18 09:59 Dose: 1 patch Nystatin (Nystop Topical Powder) 0 gm TOP Q6 [facility] Last Admin: 09/16/18 05:50 Dose: 2 pdr Nystatin (Mycostatin Cream) 0 ea TOP TID [facility] Last Admin: 09/15/18 18:24 Dose: 1 unit Ondansetron HCl (Zofran Inj) 4 mg IVP Q4H PRN PRN Reason: Nausea/Vomiting Pantoprazole Sodium (Protonix Ec Tab) 40 mg PO 0600,1600 [facility] Last Admin: 09/16/18 05:50 Dose: 40 mg Polyethylene Glycol (Miralax) 17 gm PO BID [facility] Last Admin: 09/15/18 18:23 Dose: 17 gm Prednisone (Prednisone Tab) 40 mg PO DAILY [facility] Stop: 09/20/18 10:01 - Labs Labs: 09/16/18 05:30 09/16/18 05:30 PT 11.3 SECONDS (9.4-12.5) 09/16/18 05:30 INR 1.00 09/16/18 05:30 APTT 25.0 Seconds (26.9-38.3) L 09/16/18 05:30 Attending/Attestation - Attestation I have personally seen and examined this patient.: Yes I have fully participated in the care of the patient.: Yes I have reviewed all pertinent clinical information, including history, physical exam and plan: Yes
[2018-09-13] MEDS: Albuterol-Ipratrop 3 mg / 0.5 (3 ml) UD IH SCH ×2 (13:20→20:52)
--- NOTE | 2018-09-13 16:35 | PN ---
DATE: 09/13/2018 SUBJECTIVE: The patient is seen in ICU bed 3. The patient is lying in the bed. The patient is presently on high-flow oxygen. Overnight nurse's notes were reviewed. The patient stayed stable, continued on heparin drip. No adverse events noted or documented. PHYSICAL EXAMINATION: VITAL SIGNS: T-max is 98.8, telemetry shows sinus rhythm, heart beats count 70 to 72, blood pressure is 156/65, 138/92, 148/73, 139/60, respirations 14, O2 sat 91% to 92%. INTAKE AND OUTPUT: Intake 623, output 1600. HEENT: Head: Normocephalic, atraumatic. HEENT examination shows pinkish pale conjunctivae. Anicteric sclerae. No oropharyngeal lesion. No neck rigidity. CHEST: Kyphosis. LUNGS: Positive decreased breath sound at the bases. Positive rhonchi bilaterally, right more than the left. CARDIOVASCULAR: S1 and S2, regular rhythm. Positive systolic murmur at left sternal border, right second intercostal space, left second intercostal space. ABDOMEN: Obese, protuberant. Positive bowel sound. No palpable hepatosplenomegaly. GENITALIA: Female. Positive Alonzo catheter. EXTREMITIES: Positive swelling of the lower extremity noted. MUSCULOSKELETAL: Body mass index of 41. NEUROLOGICAL: The patient is alert, awake, responsive, oriented to person, place. He is able to move upper and lower extremity without assistance. Gait examination is bedridden. DIAGNOSTICS: WBC 8, hemoglobin and hematocrit 11.3 and 38.3, platelet 207, granulocyte 86% segs. PT and PTT 13 and 106, repeat PTT 99.8. ABG not done today. Fingerstick blood sugar 127, 100, 108, 122, 118, 111. Sodium 136, potassium 5.2, chloride 95, CO2 of 38, anion gap 8, BUN 32, creatinine 0.9, GFR greater than 60, glucose 108, calcium 8.4, phosphorus 4.2, magnesium 1.8. LFTs are normal. ProBNP 1330, total protein 5.5, albumin 2.8. Influenza, Legionella and Strep pneumoniae negative. Sputum, blood, urine cultures negative. IMPRESSION: 1. Status post ventilator-dependent respiratory failure. 2. Acute right-sided multilobar pulmonary embolism. 3. Acute non-ST elevation myocardial infarction. 4. 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 5. Chronic kidney disease stage 3 with proteinuria and right kidney atrophic scarring. 6. Acute exacerbation of chronic obstructive pulmonary disease with hypoxemia, hypercarbia. 7. Bilateral multilobar pneumonia, atelectasis and effusion. 8. Acute hypercapnic hypoxic respiratory failure with metabolic alkalosis. 9. Hyperkalemia. 10. Hypertension. 11. Status post erythrocytosis. 12. Granulocytosis. 13. Normocytic anemia. 14. Lymphopenia. 15. Elevated D-dimer of 1600 upon admission. 16. Metabolic alkalosis. 17. Prerenal kidney injury. 18. New-onset diabetes mellitus. 19. Hyperuricemia. 20. Hypovitaminosis D. 21. Gait dysfunction. 22. Deconditioning. 23. Non-hemolyzed hyperkalemia. 24. Constipation. 1. Ventilator-dependent respiratory failure. 2. Status post extubation. 3. Continuous positive airway pressure dependent respiratory failure. 4. Acute right-sided multilobar pulmonary embolism. 5. Acute non-ST elevation myocardial infarction. 6. Left posterior medial thigh hematoma with intramuscular hematoma. 7. Right basilar pneumothorax, decreased in size. 8. Bibasilar atelectasis and bilateral pleural effusion, right more than the left and infiltrate. 9. Right hepatic lobe cyst. 10. Cholelithiasis. 11. Splenic cyst. 12. Atrophic right kidney. 13. Uterine fibroid. 14. Sigmoid diverticulosis. 15. Fecal stasis. 16. Degenerative joint disease of the spine. 17. Left upper thigh hematoma. 18. Questionable acute cholecystitis. 19. Constipation. 20. Hepatomegaly. 21. Hepatic steatosis. 22. Right-sided aortic arch with aberrant left subclavian artery. 23. Bibasilar pneumonia and ground-glass opacities. 24. Mediastinal lymphadenopathy. 25. Cardiomyopathy with left ventricular ejection fraction of 40% with moderate to severely impaired left ventricular systolic function, grade I abnormal relaxation pattern. 26. Severely hypokinetic and dilated right ventricle. 27. Morbid obesity. 28. New-onset diabetes mellitus with hemoglobin A1c of 6.8. 29. Bilateral heel calluses of the feet and xerosis of both feet. 30. Chronic kidney disease. 31. Acute hypoxic hypercapnic respiratory failure with renal metabolic compensation. 32. Severe sepsis with acute ventilator-dependent respiratory failure, status post extubation. 33. Biventricular dysfunction. 34. Community-acquired pneumonia and bilateral pleural effusion. 35. Possible anterior abdominal wall cellulitis. 36. Status post erythrocytosis and granulocytosis. 37. Elevated D-dimer of 1600. 38. Hypoxemia, hypercarbia and respiratory acidosis. 39. Metabolic acidosis. 40. Prerenal kidney injury. 41. Acute systolic congestive heart failure with elevated ProBNP. 42. Hypovitaminosis D. 43. Mild protein malnutrition and mild hypoalbuminemia. 44. Proteinuria, bilirubinuria. 45. Deconditioning. 46. Gait dysfunction. 47. History of nicotine addiction and dependence. 48. Intravenous dobutamine-dependent congestive heart failure. 49. Hypomagnesemia. 50. Nicotine dependence. 51. Hyperuricemia. 1. Acute ventilator-dependent respiratory failure, status post extubation. 2. Acute right-sided multilobar pulmonary embolism. 3. Acute non-ST elevation myocardial infarction. 4. Acute systolic congestive heart failure with left ventricle ejection fraction of 39% and decreased left ventricular systolic function. 5. Pulmonary vascular congestion and congestive heart failure. 6. Bilateral pleural effusion. 7. Possible community-acquired versus healthcare-associated right middle lobe, right lower lobe pneumonia. 8. Cholelithiasis. 9. Constipation. 10. Right ventricular conduction delay. 11. Anterolateral coronary ischemia. 12. Hypoxemia. 13. Acute systolic congestive heart failure with elevated pro-brain natriuretic peptide. 14. Mild protein malnutrition and mild hypoalbuminemia. 15. Hepatomegaly. 16. Hepatic steatosis. 17. Hypovitaminosis D. 18. Grade 1 abnormal relaxation pattern. 19. Right ventricular dilatation and hypokinesis. 20. Severe deconditioning and gait dysfunction. 21. Status post fever. 22. Severe sepsis. 23. Bilateral lower extremity venous stasis. 24. Obesity. 25. New-onset diabetes mellitus with hemoglobin A1c of 6.8. 26. Hyperuricemia. 1. Acute ventilator-dependent respiratory failure. 2. Acute multilobar right-sided pulmonary embolism. 3. Acute exacerbation of chronic obstructive pulmonary disease with hypoxemia. 4. Prerenal kidney injury. 5. New onset early diabetes mellitus. 6. Acute systolic congestive heart failure with elevated ProBNP. 7. Borderline hypomagnesemia. 8. Mild protein malnutrition and hypoalbuminemia. 9. Hypovitaminosis D. 10. Multilobar right lower lobe and right middle lobe pneumonia and pleural effusion. 11. Cholelithiasis. 12. Hepatomegaly. 13. Hepatic steatosis. 14. Possible cardiomyopathy with left ventricular ejection fraction of 39% with decreased left ventricular systolic function. 15. Grade 1 abnormal relaxation pattern. 16. Right ventricular dilatation and hypokinesis. 17. Right ventricular conduction delay. 18. T-wave abnormalities V1-V6. 19. Acute non-ST elevation myocardial infarction with elevated troponin. 20. Bilateral lower extremity venous stasis. 21. Morbid obesity. 22. Active nicotine addiction and dependence. 23. New-onset diabetes mellitus. 1. Acute hypoxic hypercapnic ventilator-dependent respiratory failure. 2. Right lower lobe acute pulmonary embolism. 3. Hypoxemia. 4. Severe sepsis. 5. Acute exacerbation of chronic obstructive pulmonary disease with hypoxemia. 6. Congestive heart failure, most likely right-sided diastolic congestive heart failure. 7. Fever. 8. Possible bilateral multilobar bibasilar pneumonia. 9. Acute [id number] myocardial infarction with elevated troponin of 0.13. 10. Coronary ischemic changes on the EKG. 11. Morbid obesity with diagnosis of active nicotine addiction and dependence. 12. Possible healthcare versus community-acquired multilobar pneumonia. 13. Active nicotine addiction. 14. Status post right internal jugular triple lumen placement. 15. Bilateral pleural effusion. 16. Morbid obesity. 17. Early diabetes mellitus. 18. Right axis deviation. 1. Acute ventilator-dependent respiratory failure. 2. Acute ventilator-dependent hypoxic-hypercarbic respiratory failure. 3. Respiratory acidosis with hypercarbia. 4. Distal right lower lobe and proximal right lower lobe segmental branches pulmonary embolism. 5. Right lower lobe pneumonia, infiltrate atelectasis with right-sided effusion. 6. Bibasilar atelectasis. 7. Cardiomegaly. 8. Possible pulmonary hypertension. 9. Right-sided aortic arch with aberrant left subclavian artery. 10. Left lower lobe atelectasis. 11. Bibasilar pulmonary opacities versus pneumonia. 12. Nonspecific mediastinal lymphadenopathy. 13. Active nicotine addiction and dependence. 14. Right renal atrophic scarring. 15. Right axis deviation. 16. Right ventricular hypertrophy. 17. Possible acute non-ST elevation myocardial infarction with elevated troponin. 18. Questionable sepsis with high-grade fever. 19. Tachycardia. 20. Tachypnea. 21. Hypoxemia. 22. Erythrocytosis with granulocytosis. 23. Elevated d-dimer. 24. Hypercarbia respiratory acidosis. 25. Non-hemolyzed hyperkalemia. 26. Possible new-onset diabetes mellitus. 27. Metabolic alkalosis. 28. Prerenal kidney injury. 29. Acute non-ST elevation myocardial infarction with elevated troponin and abnormal electrocardiogram with right axis deviation, right ventricular hypertrophy, and age indeterminate inferior infarct and possible lateral subendocardial injury. 30. Hyperphosphatemia. 31. Congestive heart failure whether systolic or diastolic with elevated ProBNP. 32. Proteinuria. 33. Bibasilar atelectasis, pneumonia and bilateral pleural effusion. 34. Cardiomegaly. 35. Status post right internal jugular triple-lumen catheter placement. 36. High-grade fever. 37. Right-sided aortic arch. 38. Acute exacerbation of chronic obstructive pulmonary disease. 39. Bibasilar atelectasis, infiltrate and bilateral pleural effusion. 40. Bilateral inguinal area fungal rash. 41. Severe sepsis. 42. Morbid obesity. 43. Bilateral lower extremity venous stasis. 44. Early diabetes mellitus. PLAN: At this time, the patient has been ordered serial labs. Current consultation: Cardiology, Gastroenterology, Surgery, Infectious Disease, Nephrology, Interventional Radiology, Podiatry. Current medications: The patient is started on Cozaar [address] Zuniga from tomorrow. The patient is on Diamox 250 twice a day, doxycycline 100 mg every 12 hours, Drisdol 50,000 units weekly, DuoNeb nebulizer every 6 hours, heparin drip, Humalog high-dose sliding scale coverage, Lac-Hydrin lotion, Lasix 40 IV daily, nystatin cream, nicotine patch, Protonix 40 daily twice, Solu-Medrol 20 IV every 12 hours, Tylenol p.r.n. The patient is on Veltassa 8.4 mg daily. The patient is on Zofran 4 IV every 4 hours, allopurinol 100 mg daily. At present, the patient needs clearance by Cardiology for transfer out of the ICU. The patient has been ordered out of bed. The patient's overall prognosis is guarded to poor. Condition critical. Time spent is 35 minutes. Dictated and electronically signed, not read. Manuel Law MD [facility]
--- NOTE | 2018-09-13 16:38 | PN ---
DATE: 09/13/2018 SUBJECTIVE: The patient is in bed, was seen earlier today in no acute distress, nontoxic. She was seen in 128, bed three. Awake. PHYSICAL EXAMINATION: VITAL SIGNS: Temperature is 98, blood pressure is 150/60, respiratory rate of 16. HEENT: Unremarkable. NECK: Supple. LUNGS: Have decreased breath sounds. HEART: Normal S1 and S2. ABDOMEN: Soft. LABORATORY DATA: Reveals a white count of 8, hemoglobin of 11, platelets of 207. Chemistries reveals a BUN of 32, creatinine of 0.9. Microbiology reveals the sputum culture negative. Nares MRSA is negative. Urine cultures negative, blood cultures are negative. The patient had a CAT scan of the abdomen and pelvis which was reviewed. MEDICATIONS: Review of orders reveals the patient to be on doxycycline. ASSESSMENT AND PLAN: This is a 73-year-old female with chronic obstructive lung disease, tobacco use, presented to the emergency room where she was found by her family members falling down on a couch, in respiratory failure intubated on a ventilator, now extubated, doing well, awake and alert. Initially with severe sepsis, respiratory failure requiring intubation, now extubated. Patient with pulmonary emboli, right ventricular dysfunction. Today is day #5 of doxycycline for community-acquired pneumonia, would complete 5-7 days. Follow with you. Overall, she is doing well. Agapito Rojo MD
[2018-09-14] MEDS: Albuterol-Ipratrop 3 mg / 0.5 (3 ml) UD IH SCH ×4 (01:49→20:25)
[2018-09-14 03:16] LABS: EOS % 0.3 % (1.5-5.0); HEMOGLOBIN 10.4 g/dL (12.0-16.0); LYMPH # 0.3 (1.2-3.4); LYMPH % 2.8 % (22.0-35.0); MEAN CELL VOLUME 100.3 fl (80.0-105.0); MEAN CORPUSCULAR HEMOGLOBIN 29.5 pg (25.0-35.0); MEAN CORPUSCULAR HGB CONC 29.4 g/dl (31.0-37.0); MEAN PLATELET VOLUME 9.7 fl (7.0-11.0); MONO # 0.7 (0.1-0.6); MONO % 6.9 % (1.0-6.0); RBC 3.53 10^6/uL (3.5-6.1); RED CELL DISTRIBUTION WIDTH 14.3 % (11.5-14.5); WHITE BLOOD COUNT 9.6 10^3/uL (4.5-11.0)
[2018-09-14 03:21] LABS: ALB/GLOB RATIO 0.9 (1.1-1.8); ALBUMIN 2.5 g/dL (3.0-4.8); ALT/SGPT 19 U/L (7-56); AST/SGOT 23 U/L (14-36); BILIRUBIN,DIRECT 0.5 mg/dL (0.0-0.4); BLOOD UREA NITROGEN 35 mg/dL (7-21); CALCIUM 7.9 mg/dL (8.4-10.5); GFR NON-AFRICAN AMERICAN > 60
[2018-09-14 03:22] LABS: INR 1.14; PARTIAL THROMBOPLASTIN TIME 73.7 Seconds (26.9-38.3); PROTHROMBIN TIME 12.6 SECONDS (9.4-12.5)
[2018-09-14] MEDS: Pantoprazole 40 mg EC Tab PO SCH ×2 (06:30→17:04)
[2018-09-14] MEDS: Nystatin 100,000 Units/gm Topical Pow(15 gm) TOP SCH ×3 (07:11→17:06)
[2018-09-14] MEDS: Insulin Lispro (HUMAlog) HIGH Coverage SC SCH ×4 (07:30→21:54)
--- NOTE | 2018-09-14 07:31 | CP.PCM.PN ---
<Elina Arriaza - Last Filed: 09/15/18 06:03> Subjective - Date & Time of Evaluation Date of Evaluation: 09/14/18 Time of Evaluation: 07:15 - Subjective Subjective: General Surgery progress note for Dr. Norwood Patient seen and examined this am at bedside. States her leg was hurting yesterday afternoon but is no longer hurting now. She is able to move her leg without pain and denies any numbness or weakness in her leg. She otherwise denies HAAS, SOB CP abdominal pain f/c, n/v, and extremity pain/weakness Objective - Vital Signs/Intake and Output Vital Signs (last 24 hours): Temp Pulse Resp BP Pulse Ox 97.3 F L 67 20 120/57 L 100 09/14/18 04:00 09/14/18 05:09 09/14/18 07:19 09/13/18 18:00 09/13/18 18:00 Intake and Output: 09/14/18 09/14/18 06:59 18:59 Intake Total 240 Output Total 1000 Balance -760 - Medications Medications: Current Medications Acetaminophen (Tylenol 325mg Tab) 650 mg PO Q6 PRN PRN Reason: TEMP>=99.5F Acetaminophen (Tylenol 650 Mg Supp) 650 mg RC Q6H PRN PRN Reason: TEMP>=99.5F Acetazolamide (Diamox 250 Mg Tab) 250 mg PO BID [facility] Stop: 09/14/18 10:31 Last Admin: 09/13/18 17:38 Dose: 250 mg Albuterol/Ipratropium (Duoneb 3 Mg/0.5 Mg (3 Ml) Ud) 3 ml IH [id number] [facility] Last Admin: 09/14/18 07:17 Dose: 3 ml Allopurinol (Zyloprim) 100 mg PO DAILY [facility] Last Admin: 09/13/18 09:13 Dose: 100 mg Dextrose (Dextrose 50% Inj) 0 ml IV STAT PRN; Protocol PRN Reason: Hypoglycemia Protocol Ergocalciferol (Drisdol 50,000 Intl Units Cap) 1 cap PO Q7D [facility] Last Admin: 09/10/18 18:32 Dose: 1 cap Furosemide (Lasix) 40 mg IVP DAILY [facility] Last Admin: 09/13/18 09:12 Dose: 40 mg Dextrose (Dextrose 5% In Water 1000 Ml) 1,000 mls @ 0 mls/hr IV .Q0M PRN; Protocol PRN Reason: Hypoglycemia Protocol Heparin Sodium/Sodium Chloride (Heparin 12370 Units/250ml 1/2 Normal Saline) 25,000 units in 250 mls @ 19.701 mls/hr IV .[id number] PRN; Protocol PRN Reason: ADJUST RATE PER PROTOCOL Last Titration: 09/14/18 03:00 Dose: 11 units/kg/hr, 12.04 mls/hr Insulin Human Lispro (Humalog High) 0 units SC ACHS [facility]; Protocol Last Admin: 09/13/18 22:30 Dose: Not Given Lactic Acid (Lac-Hydrin 12% Cream (140 G)) 0 ea TOP DAILY [facility] Last Admin: 09/13/18 09:14 Dose: 1 applic Losartan Potassium (Cozaar) 25 mg PO DAILY [facility] Methylprednisolone (Solu-Medrol) 20 mg IVP Q12H [facility] Last Admin: 09/13/18 21:00 Dose: 20 mg Nicotine (Nicoderm Cq) 1 patch TD DAILY [facility] Last Admin: 09/13/18 09:12 Dose: 1 patch Nystatin (Nystop Topical Powder) 0 gm TOP Q6 [facility] Last Admin: 09/14/18 07:11 Dose: 1 pdr Nystatin (Mycostatin Cream) 0 ea TOP TID [facility] Last Admin: 09/13/18 17:40 Dose: 1 unit Ondansetron HCl (Zofran Inj) 4 mg IVP Q4H PRN PRN Reason: Nausea/Vomiting Pantoprazole Sodium (Protonix Ec Tab) 40 mg PO 0600,1600 [facility] Last Admin: 09/14/18 06:30 Dose: 40 mg Patiromer (Veltassa) 8.4 gm PO DAILY [facility] Stop: 09/16/18 10:01 Polyethylene Glycol (Miralax) 17 gm PO BID [facility] Last Admin: 09/13/18 17:39 Dose: 17 gm - Labs Labs: 09/14/18 03:00 09/14/18 03:00 PT 12.6 SECONDS (9.4-12.5) H 09/14/18 03:00 INR 1.14 09/14/18 03:00 APTT 73.7 Seconds (26.9-38.3) H 09/14/18 03:00 - Constitutional Appears: Well, Non-toxic, No Acute Distress, Chronically Ill - Head Exam Head Exam: ATRAUMATIC - Eye Exam Eye Exam: EOMI - ENT Exam ENT Exam: Mucous Membranes Moist - Respiratory Exam Respiratory Exam: NORMAL BREATHING PATTERN Additional comments: on HFNC - Cardiovascular Exam Cardiovascular Exam: REGULAR RHYTHM - GI/Abdominal Exam GI & Abdominal Exam: Soft. absent: Guarding, Tenderness - Extremities Exam Extremities Exam: Full ROM, Normal Capillary Refill. absent: Calf Tenderness, Pedal Edema, Tenderness Additional comments: ecchymosis extending from 3 cm below the popliteal fossa to 14 cm superior to the popliteal fossa. - Neurological Exam Neurological Exam: Alert, Awake, Oriented x3 - Psychiatric Exam Psychiatric exam: Normal Affect, Normal Mood - Skin Skin Exam: Dry, Intact, Warm Additional comments: ecchymosis extending from 3 cm below the popliteal fossa to 14 cm superior to the popliteal fossa. Assessment and Plan - Assessment and Plan (Free Text) Assessment: 73 yr old female with intramuscular hematoma seen on left lower extremity US, currently on Heparin drip d/t recent PE Plan: Continue to elevate lower extremities Monitor for signs of compartment syndrome Monitor for increasing size of hematoma Further recommendations per Dr. Cuco Arriaza, PGY 1 <Von Norwood - Last Filed: 09/15/18 09:55> Objective - Vital Signs/Intake and Output Vital Signs (last 24 hours): Temp Pulse Resp BP Pulse Ox 98.3 F 74 21 99/47 L 94 L 09/15/18 04:00 09/15/18 06:00 09/14/18 22:00 09/14/18 22:00 09/14/18 22:00 Intake and Output: 09/15/18 09/15/18 06:59 18:59 Intake Total 633 Output Total 900 Balance -267 - Medications Medications: Current Medications Acetaminophen (Tylenol 325mg Tab) 650 mg PO Q6 PRN PRN Reason: TEMP>=99.5F Last Admin: 09/14/18 17:04 Dose: 650 mg Acetaminophen (Tylenol 650 Mg Supp) 650 mg RC Q6H PRN PRN Reason: TEMP>=99.5F Acetazolamide (Diamox 250 Mg Tab) 250 mg PO BID [facility] Stop: 09/16/18 10:31 Last Admin: 09/14/18 17:10 Dose: 250 mg Albuterol/Ipratropium (Duoneb 3 Mg/0.5 Mg (3 Ml) Ud) 3 ml IH [id number] [facility] Last Admin: 09/15/18 08:07 Dose: 3 ml Allopurinol (Zyloprim) 100 mg PO DAILY [facility] Last Admin: 09/14/18 11:15 Dose: 100 mg Dextrose (Dextrose 50% Inj) 0 ml IV STAT PRN; Protocol PRN Reason: Hypoglycemia Protocol Ergocalciferol (Drisdol 50,000 Intl Units Cap) 1 cap PO Q7D [facility] Last Admin: 09/10/18 18:32 Dose: 1 cap Furosemide (Lasix) 40 mg IVP DAILY [facility] Last Admin: 09/14/18 10:00 Dose: 40 mg Dextrose (Dextrose 5% In Water 1000 Ml) 1,000 mls @ 0 mls/hr IV .Q0M PRN; Protocol PRN Reason: Hypoglycemia Protocol Insulin Human Lispro (Humalog High) 0 units SC ACHS [facility]; Protocol Last Admin: 09/15/18 08:23 Dose: Not Given Lactic Acid (Lac-Hydrin 12% Cream (140 G)) 0 ea TOP DAILY [facility] Last Admin: 09/14/18 11:46 Dose: 1 applic Methylprednisolone (Solu-Medrol) 20 mg IVP Q12H [facility] Last Admin: 09/15/18 08:45 Dose: 20 mg Nicotine (Nicoderm Cq) 1 patch TD DAILY [facility] Last Admin: 09/14/18 10:00 Dose: 1 patch Nystatin (Nystop Topical Powder) 0 gm TOP Q6 [facility] Last Admin: 09/15/18 05:11 Dose: 1 pdr Nystatin (Mycostatin Cream) 0 ea TOP TID [facility] Last Admin: 09/14/18 17:11 Dose: 1 unit Ondansetron HCl (Zofran Inj) 4 mg IVP Q4H PRN PRN Reason: Nausea/Vomiting Pantoprazole Sodium (Protonix Ec Tab) 40 mg PO 0600,1600 [facility] Last Admin: 09/15/18 05:11 Dose: 40 mg Patiromer (Veltassa) 8.4 gm PO DAILY [facility] Stop: 09/16/18 10:01 Last Admin: 09/14/18 11:03 Dose: 8.4 gm Polyethylene Glycol (Miralax) 17 gm PO BID [facility] Last Admin: 09/14/18 17:09 Dose: 17 gm - Labs Labs: 09/15/18 05:02 09/15/18 05:02 PT 11.4 SECONDS (9.4-12.5) 09/15/18 05:02 INR 1.01 09/15/18 05:02 APTT 24.0 Seconds (26.9-38.3) L 09/15/18 05:02 Assessment and Plan - Assessment and Plan (Free Text) Plan: Patient was seen, evaluated and examined by me at the bedside. I agree with assessment and plan as stated in the resident's note.We will continue to monitor H&H and if there is further drop we will stop heparin and correct coagulation as needed. Patient may also need transfusion. We will closely monitor patient's status.
[2018-09-14] MEDS ORDERED: Magnesium Sulfate 2 gm/50 ml 2 GM/50 ML BAG IVPB ONE (07:56)
[2018-09-14] MEDS: MethylPREDNISolone 40 mg Vial IVP SCH ×2 (09:00→21:57)
[2018-09-14] MEDS: POLYETHYLENE GLYCOL 3350 17 GM/Dose PACKET PO SCH ×2 (10:23→17:09)
[2018-09-14] MEDS: Heparin25000 units/250ml 1/2NS 25,000 UNITS/250 ML BAG IV PRN (11:01)
[2018-09-14] MEDS ORDERED: Magnesium Sulfate 2 GM in 50 ml Water IVPB ONE (11:30)
[2018-09-14] MEDS: VITS A AND D/WHITE PET/LANOLIN 113.4 APPLIC/113.4 G TUBE TP SCH (11:46)
[2018-09-14] MEDS: Ammonium Lactate 12% Cream (140 g) TOP SCH (11:46)
[2018-09-14] MEDS: Nystatin 100,000 Units/gm Cream(15 gm) TOP SCH ×3 (11:47→17:11)
--- NOTE | 2018-09-14 11:52 | PN ---
DATE: 09/14/2018 SUBJECTIVE: The patient is seen in bed this morning, in no acute distress. He is awake and alert, doing well, remains extubated, comfortable. PHYSICAL EXAMINATION: VITAL SIGNS: Temperature is 98, blood pressure is 120/57, respiratory rate of 16. HEENT: Unremarkable. NECK: Supple. LUNGS: Have decreased breath sounds. HEART: Normal S1, S2. ABDOMEN: Soft, nontender. LABORATORY DATA: Laboratory examination reveals a white count of 9.6, hemoglobin of 10, platelets of 193. BUN of 35, creatinine of 0.9. The BNP is 1330. Procalcitonin is less than 0.05. Urinalysis is noted. Serology reveals urine Legionella is negative, influenza is negative, strep pneumonia is negative. Microbiology reveals the cultures are negative sputum culture, negative MRSA screen, negative urine culture, negative blood cultures. Review of orders reveals the patient to be off of antibiotics. . progress note is reviewed. Dr. note is reviewed. ASSESSMENT AND PLAN: This is a 73-year-old female with chronic obstructive lung disease, tobacco use, presented to the emergency room. The patient was found by family members down with respiratory failure, intubated on a ventilator and currently now the patient is extubated and initially was thought to have severe sepsis secondary to respiratory failure, intubated on a ventilator with right ventricular dysfunction, pulmonary emboli, was treated as a community-acquired pneumonia as the source of the severe sepsis, is currently off of antibiotics. The patient is at risk for developing nosocomial infections. We will follow with you. Agapito Rojo MD
--- NOTE | 2018-09-14 13:32 | CP.PCM.PN ---
Subjective - Date & Time of Evaluation Date of Evaluation: 09/14/18 Time of Evaluation: 13:31 - Subjective Subjective: Nephrology Consultation Note: Assessment: stable likely CKD 3 with UA 30 prot. renal imaging atrophy scarring Rt kidney and eGFR in 50s COPD/sys CHF exacerbation with PNA, acute PE, DM and sepsis morbid obesity acute on chronic hypercapnic respi failure with renal compensation active smoker hyperkalemia vit d def cholelithiasis Plan No acute need for renal replacement therapy at this time. Hypertension control with meds as ordered. Maintain hemodynamics stable. Avoid hypotension. Patient not on ACEI or ARB at present, will add low dose losartan. added veltassa for elevated K Monitor Input/Output, daily weights and renal function with basic metabolic panel continue with loop diuretics. will add diamox to help with metabolic alkalosis added weekly vit D cardiology, pulmonary following Check urine spot protein/creatinine, albumin/creatinine ratio Dose meds/antibiotics for GFR >50 Glycemic control. once stable and acute process resolved, pt will need weight loss, smoking cessation, lifestyle modifications Further work up/management as per primary team Thanks for allowing me to participate in care of your patient. Will follow patient with you. Please call if any Qs. had d/w team Dr David Harrison Office: [phone] Chief Complaint; unable Reason for consult: Acute Kidney Injury HPI: Pt is a 73 F with hx of heavy smoking, no medical follow ups presented with complaints of SOB and respi distress intubated and admitted to ICU. foudn to have CHF exacerbation with PNA, PE, DM and sepsis renal consult for abnormal imaging and renal fxn eval Denies OTC/herbal meds or NSAIDs Noted recent iodinated contrast exposure as CTA. No obvious episodes of low BP. ROS: pt extubated on o2 via NC. feels better. Physical Examination: General Appearance: better appearing on O2 via NC. no acute distress, obese Vitals reviewed and noted as below Head; Atraumatic, normocephalic ENT: normal oral mucosa EYES: Pupils are equal, round and reactive to light accommodation. Eye muscles and extraocular movement intact. Sclera is anicteric. Neck; supple no lymphadenopathy, no thyromegaly or bruit Lungs: Normal respiratory rate/effort. Breath sounds bilateral reduced Heart: Normal rate. s1s2 normal. No rub or gallop. Extremities: 1+ edema. No varicose veins Neurological: Patient is awake alert follows commands Skin: Warm and dry. Normal turgor. No rash. Palpitation: Normal elasticity for age Abdomen: Abdomen is soft. Bowel sounds +. There is no abdominal tenderness, no guarding/rigidity no organomegaly Psych: limited insight. MSK: no joint tenderness or swelling. Digits and nails normal, no deformity : kidney or bladder not palpable. smith farrell Labs/imaging reviewed. Past medical history, past surgical history, family history, social history, allergy reviewed and noted as below Family hx: no hx of CKD. Rest non-contributory UA 30 prot. renal imaging atrophy scarring Rt kidney Objective - Vital Signs/Intake and Output Vital Signs (last 24 hours): Temp Pulse Resp BP Pulse Ox 97.9 F 92 H 32 H 104/54 L 91 L 09/14/18 12:00 09/14/18 11:28 09/14/18 10:00 09/14/18 11:28 09/14/18 11:00 Intake and Output: 09/14/18 09/14/18 06:59 18:59 Intake Total 240 90 Output Total 1000 Balance -760 90 - Medications Medications: Current Medications Acetaminophen (Tylenol 325mg Tab) 650 mg PO Q6 PRN PRN Reason: TEMP>=99.5F Acetaminophen (Tylenol 650 Mg Supp) 650 mg RC Q6H PRN PRN Reason: TEMP>=99.5F Acetazolamide (Diamox 250 Mg Tab) 250 mg PO BID [facility] Stop: 09/16/18 10:31 Last Admin: 09/14/18 11:13 Dose: 250 mg Albuterol/Ipratropium (Duoneb 3 Mg/0.5 Mg (3 Ml) Ud) 3 ml IH [id number] [facility] Last Admin: 09/14/18 13:11 Dose: 3 ml Allopurinol (Zyloprim) 100 mg PO DAILY [facility] Last Admin: 09/14/18 11:15 Dose: 100 mg Dextrose (Dextrose 50% Inj) 0 ml IV STAT PRN; Protocol PRN Reason: Hypoglycemia Protocol Ergocalciferol (Drisdol 50,000 Intl Units Cap) 1 cap PO Q7D [facility] Last Admin: 09/10/18 18:32 Dose: 1 cap Furosemide (Lasix) 40 mg IVP DAILY [facility] Last Admin: 09/14/18 10:00 Dose: 40 mg Dextrose (Dextrose 5% In Water 1000 Ml) 1,000 mls @ 0 mls/hr IV .Q0M PRN; Protocol PRN Reason: Hypoglycemia Protocol Heparin Sodium/Sodium Chloride (Heparin 68540 Units/250ml 1/2 Normal Saline) 25,000 units in 250 mls @ 19.701 mls/hr IV .[id number] PRN; Protocol PRN Reason: ADJUST RATE PER PROTOCOL Last Admin: 09/14/18 11:01 Dose: 11 units/kg/hr, 12.04 mls/hr Insulin Human Lispro (Humalog High) 0 units SC ACHS [facility]; Protocol Last Admin: 09/14/18 12:04 Dose: Not Given Lactic Acid (Lac-Hydrin 12% Cream (140 G)) 0 ea TOP DAILY [facility] Last Admin: 09/14/18 11:46 Dose: 1 applic Losartan Potassium (Cozaar) 25 mg PO DAILY [facility] Last Admin: 09/14/18 11:28 Dose: 25 mg Methylprednisolone (Solu-Medrol) 20 mg IVP Q12H [facility] Last Admin: 09/14/18 09:00 Dose: 20 mg Nicotine (Nicoderm Cq) 1 patch TD DAILY [facility] Last Admin: 09/14/18 10:00 Dose: 1 patch Nystatin (Nystop Topical Powder) 0 gm TOP Q6 [facility] Last Admin: 09/14/18 12:05 Dose: 1 pdr Nystatin (Mycostatin Cream) 0 ea TOP TID [facility] Last Admin: 09/14/18 11:47 Dose: 1 unit Ondansetron HCl (Zofran Inj) 4 mg IVP Q4H PRN PRN Reason: Nausea/Vomiting Pantoprazole Sodium (Protonix Ec Tab) 40 mg PO 0600,1600 [facility] Last Admin: 09/14/18 06:30 Dose: 40 mg Patiromer (Veltassa) 8.4 gm PO DAILY [facility] Stop: 09/16/18 10:01 Last Admin: 09/14/18 11:03 Dose: 8.4 gm Polyethylene Glycol (Miralax) 17 gm PO BID [facility] Last Admin: 09/14/18 10:23 Dose: 17 gm - Labs Labs: 09/14/18 03:00 09/14/18 03:00 PT 12.6 SECONDS (9.4-12.5) H 09/14/18 03:00 INR 1.14 09/14/18 03:00 APTT 73.7 Seconds (26.9-38.3) H 09/14/18 03:00
--- NOTE | 2018-09-14 14:22 | CP.CCUPN ---
<IldefonsoJaredjeanette - Last Filed: 09/14/18 14:25> CCU Subjective - Physician Review Subjective (Free Text): Alena Fregoso DO, PGY-2: ICU Progress Note Patient was seen and examined. She denies chest pain, nausea, shortness or breath. She reports her left leg hurts with movement, scales it 4/10 in intensity. Otherwise, no adverse events noted. Her hgb did drop in the interim. m 09/14/18 14:16 CCU Objective - Vital Signs / Intake & Output Vital Signs (Last 4 hours): Vital Signs Temp Pulse BP Pulse Ox 09/14/18 12:00 97.9 F 09/14/18 11:28 92 H 104/54 L 09/14/18 11:00 76 91 L 09/14/18 10:25 104/54 L 09/14/18 10:24 79 Intake and Output (Last 8hrs): Intake & Output 09/13/18 09/14/18 09/14/18 22:59 06:59 14:59 Intake Total 631 210 90 Output Total 1725 1000 Balance -1094 -790 90 Weight 232 lb Intake: IV 241 10 90 heparin 151 Oral 390 200 Output: Urine 1725 1000 Urethral (Alonzo) 1725 1000 Stool 0 - Physical Exam Head: Positive for: Atraumatic, Normocephalic Conjunctiva: Positive for: Normal, Other Mouth: Positive for: Dry Nose (Internal): Positive for: Normal Inspection Neck: Positive for: Trachea Midline. Negative for: JVD, Bruit Respiratory/Chest: Positive for: Good Air Exchange, Decreased Breath Sounds. Negative for: Respiratory Distress Cardiovascular: Positive for: Regular Rate and Rhythm, Normal S1, S2. Negative for: Rub, Gallop Abdomen: Positive for: Normal Bowel Sounds. Negative for: Tenderness, Distention Breast/Axillary: Positive for: Erythema (Erythematous bilateral candidal rash to breast) Lower Extremity: Positive for: Edema (3+ pedal edema bilateral), Other (left posterior knee brusing noted from undrlying hematoma) Neurological: Positive for: GCS=15, Speech Normal Skin: Positive for: Rashes, Erythematous (bilateral candidal rash to groin, h ips, abdomen) Psychiatric: Positive for: Oriented x 3, Normal Insight, Normal Concentration - Medications Active Medications: Active Medications Generic Name Dose Route Start Last Admin Trade Name Freq PRN Reason Stop Dose Admin Acetaminophen 650 mg 09/08/18 14:22 Tylenol 325mg Tab PO Q6 PRN TEMP>=99.5F Acetaminophen 650 mg 09/08/18 14:22 Tylenol 650 Mg Supp RC Q6H PRN TEMP>=99.5F Acetazolamide 250 mg 09/14/18 10:30 09/14/18 11:13 Diamox 250 Mg Tab PO 09/16/18 10:31 250 mg BID SABIHA Administration Albuterol/Ipratropium 3 ml 09/13/18 14:00 09/14/18 13:11 Duoneb 3 Mg/0.5 Mg (3 Ml) Ud IH 3 ml [id number] SABIHA Administration Allopurinol 100 mg 09/09/18 10:00 09/14/18 11:15 Zyloprim PO 100 mg DAILY SABIHA Administration Dextrose 0 ml 09/08/18 22:59 Dextrose 50% Inj IV STAT PRN Hypoglycemia Protocol Protocol Ergocalciferol 1 cap 09/10/18 14:30 09/10/18 18:32 Drisdol 50,000 Intl Units Cap PO 1 cap Q7D SABIHA Administration Furosemide 40 mg 09/11/18 10:00 09/14/18 10:00 Lasix IVP 40 mg DAILY SABIHA Administration Dextrose 1,000 mls @ 0 mls/hr 09/08/18 22:59 Dextrose 5% In Water 1000 Ml IV .Q0M PRN Hypoglycemia Protocol Protocol Per Protocol Heparin Sodium/Sodium Chloride 25,000 units in 250 mls @ 19.701 mls/hr 09/12/18 14:38 09/14/18 11:01 Heparin 37054 Units/250ml 1/2 Normal Saline IV 11 units/kg/hr .[id number] PRN 12.04 mls/hr ADJUST RATE PER PROTOCOL Administration Protocol 18 UNITS/KG/HR Insulin Human Lispro 0 units 09/11/18 22:00 09/14/18 12:04 Humalog High SC Not Given ACHS [facility] Protocol Lactic Acid 0 ea 09/10/18 10:00 09/14/18 11:46 Lac-Hydrin 12% Cream (140 G) TOP 1 applic DAILY SABIHA Administration Losartan Potassium 25 mg 09/14/18 10:00 09/14/18 11:28 Cozaar PO 25 mg DAILY SABIHA Administration Methylprednisolone 20 mg 09/09/18 08:15 09/14/18 09:00 Solu-Medrol IVP 20 mg Q12H SABIHA Administration Nicotine 1 patch 09/09/18 10:00 09/14/18 10:00 Nicoderm Cq TD 1 patch DAILY SABHIA Administration Nystatin 0 gm 09/08/18 18:00 09/14/18 12:05 Nystop Topical Powder TOP 1 pdr Q6 SABIHA Administration Nystatin 0 ea 09/08/18 23:00 09/14/18 11:47 Mycostatin Cream TOP 1 unit TID SABIHA Administration Ondansetron HCl 4 mg 09/08/18 14:22 Zofran Inj IVP Q4H PRN Nausea/Vomiting Pantoprazole Sodium 40 mg 09/11/18 06:00 09/14/18 06:30 Protonix Ec Tab PO 40 mg 0600,1600 SABIHA Administration Patiromer 8.4 gm 09/14/18 10:00 09/14/18 11:03 Veltassa PO 09/16/18 10:01 8.4 gm DAILY SABIHA Administration Polyethylene Glycol 17 gm 09/11/18 10:00 09/14/18 10:23 Miralax PO 17 gm BID SABIHA Administration - Patient Studies Lab Studies: Microbiology Studies 09/08/18 12:00 Blood Culture - Final Blood NO GROWTH AFTER 5 DAYS Gram Stain - Final TEST NOT PERFORMED 09/08/18 12:30 Blood Culture - Final Blood NO GROWTH AFTER 5 DAYS Gram Stain - Final TEST NOT PERFORMED Lab Studies 09/14/18 09/14/18 09/14/18 Range/Units 07:35 03:00 03:00 WBC 9.6 (4.5-11.0) 10^3/uL RBC 3.53 (3.5-6.1) 10^6/uL Hgb 10.4 L (12.0-16.0) g/dL Hct 35.4 L (36.0-48.0) % MCV 100.3 (80.0-105.0) fl MCH 29.5 (25.0-35.0) pg MCHC 29.4 L (31.0-37.0) g/dl RDW 14.3 (11.5-14.5) % Plt Count 193 (120.0-450.0) 10^3/uL MPV 9.7 (7.0-11.0) fl Neut % (Auto) 90.0 H (50.0-68.0) % Lymph % (Auto) 2.8 L (22.0-35.0) % Roberts % (Auto) 6.9 H (1.0-6.0) % Eos % (Auto) 0.3 L (1.5-5.0) % Baso % (Auto) 0.0 (0.0-3.0) % Lymph # (Auto) 0.3 L (1.2-3.4) Roberts # (Auto) 0.7 H (0.1-0.6) Eos # (Auto) 0.0 (0.0-0.7) Baso # (Auto) 0.00 (0.0-2.0) K/mm3 Absolute Neuts (auto) 8.59 H (1.4-6.5) PT (9.4-12.5) SECONDS INR APTT (26.9-38.3) Seconds Sodium 136 (132-148) mmol/L Potassium 4.6 (3.6-5.0) mmol/L Chloride 94 L (98-107) mmol/L Carbon Dioxide 40 H (21-33) mmol/L Anion Gap 7 L (10-20) BUN 35 H (7-21) mg/dL Creatinine 0.9 (0.7-1.2) mg/dl Est GFR ( Amer) > 60 Est GFR (Non-Af Amer) > 60 POC Glucose (mg/dL) 87 (65-110) mg/dL Random Glucose 122 H (70-110) mg/dL Calcium 7.9 L (8.4-10.5) mg/dL Phosphorus 4.8 H (2.5-4.5) mg/dL Magnesium 1.7 (1.7-2.2) mg/dL Total Bilirubin 0.7 (0.2-1.3) mg/dL Direct Bilirubin 0.5 H (0.0-0.4) mg/dL AST 23 (14-36) U/L ALT 19 (7-56) U/L Alkaline Phosphatase 49 (38-126) U/L Total Protein 5.4 L (5.8-8.3) g/dL Albumin 2.5 L (3.0-4.8) g/dL Globulin 2.8 gm/dL Albumin/Globulin Ratio 0.9 L (1.1-1.8) 09/14/18 09/13/18 09/13/18 Range/Units 03:00 23:41 20:50 WBC (4.5-11.0) 10^3/uL RBC (3.5-6.1) 10^6/uL Hgb (12.0-16.0) g/dL Hct (36.0-48.0) % MCV (80.0-105.0) fl MCH (25.0-35.0) pg MCHC (31.0-37.0) g/dl RDW (11.5-14.5) % Plt Count (120.0-450.0) 10^3/uL MPV (7.0-11.0) fl Neut % (Auto) (50.0-68.0) % Lymph % (Auto) (22.0-35.0) % Roberts % (Auto) (1.0-6.0) % Eos % (Auto) (1.5-5.0) % Baso % (Auto) (0.0-3.0) % Lymph # (Auto) (1.2-3.4) Roberts # (Auto) (0.1-0.6) Eos # (Auto) (0.0-0.7) Baso # (Auto) (0.0-2.0) K/mm3 Absolute Neuts (auto) (1.4-6.5) PT 12.6 H (9.4-12.5) SECONDS INR 1.14 APTT 73.7 H 56.0 H (26.9-38.3) Seconds Sodium (132-148) mmol/L Potassium (3.6-5.0) mmol/L Chloride (98-107) mmol/L Carbon Dioxide (21-33) mmol/L Anion Gap (10-20) BUN (7-21) mg/dL Creatinine (0.7-1.2) mg/dl Est GFR ( Amer) Est GFR (Non-Af Amer) POC Glucose (mg/dL) 94 (65-110) mg/dL Random Glucose (70-110) mg/dL Calcium (8.4-10.5) mg/dL Phosphorus (2.5-4.5) mg/dL Magnesium (1.7-2.2) mg/dL Total Bilirubin (0.2-1.3) mg/dL Direct Bilirubin (0.0-0.4) mg/dL AST (14-36) U/L ALT (7-56) U/L Alkaline Phosphatase (38-126) U/L Total Protein (5.8-8.3) g/dL Albumin (3.0-4.8) g/dL Globulin gm/dL Albumin/Globulin Ratio (1.1-1.8) 09/13/18 Range/Units 16:04 WBC (4.5-11.0) 10^3/uL RBC (3.5-6.1) 10^6/uL Hgb (12.0-16.0) g/dL Hct (36.0-48.0) % MCV (80.0-105.0) fl MCH (25.0-35.0) pg MCHC (31.0-37.0) g/dl RDW (11.5-14.5) % Plt Count (120.0-450.0) 10^3/uL MPV (7.0-11.0) fl Neut % (Auto) (50.0-68.0) % Lymph % (Auto) (22.0-35.0) % Roberts % (Auto) (1.0-6.0) % Eos % (Auto) (1.5-5.0) % Baso % (Auto) (0.0-3.0) % Lymph # (Auto) (1.2-3.4) Roberts # (Auto) (0.1-0.6) Eos # (Auto) (0.0-0.7) Baso # (Auto) (0.0-2.0) K/mm3 Absolute Neuts (auto) (1.4-6.5) PT (9.4-12.5) SECONDS INR APTT (26.9-38.3) Seconds Sodium (132-148) mmol/L Potassium (3.6-5.0) mmol/L Chloride (98-107) mmol/L Carbon Dioxide (21-33) mmol/L Anion Gap (10-20) BUN (7-21) mg/dL Creatinine (0.7-1.2) mg/dl Est GFR ( Amer) Est GFR (Non-Af Amer) POC Glucose (mg/dL) 127 H (65-110) mg/dL Random Glucose (70-110) mg/dL Calcium (8.4-10.5) mg/dL Phosphorus (2.5-4.5) mg/dL Magnesium (1.7-2.2) mg/dL Total Bilirubin (0.2-1.3) mg/dL Direct Bilirubin (0.0-0.4) mg/dL AST (14-36) U/L ALT (7-56) U/L Alkaline Phosphatase (38-126) U/L Total Protein (5.8-8.3) g/dL Albumin (3.0-4.8) g/dL Globulin gm/dL Albumin/Globulin Ratio (1.1-1.8) Laboratory Results - last 24 hr 09/13/18 09/13/18 09/13/18 16:04 20:50 23:41 WBC RBC Hgb Hct MCV MCH MCHC RDW Plt Count MPV Neut % (Auto) Lymph % (Auto) Roberts % (Auto) Eos % (Auto) Baso % (Auto) Lymph # (Auto) Roberts # (Auto) Eos # (Auto) Baso # (Auto) Absolute Neuts (auto) PT INR APTT 56.0 H Sodium Potassium Chloride Carbon Dioxide Anion Gap BUN Creatinine Est GFR ( Amer) Est GFR (Non-Af Amer) POC Glucose (mg/dL) 127 H 94 Random Glucose Calcium Phosphorus Magnesium Total Bilirubin Direct Bilirubin AST ALT Alkaline Phosphatase Total Protein Albumin Globulin Albumin/Globulin Ratio 09/14/18 09/14/18 09/14/18 03:00 03:00 03:00 WBC 9.6 RBC 3.53 Hgb 10.4 L Hct 35.4 L MCV 100.3 MCH 29.5 MCHC 29.4 L RDW 14.3 Plt Count 193 MPV 9.7 Neut % (Auto) 90.0 H Lymph % (Auto) 2.8 L Roberts % (Auto) 6.9 H Eos % (Auto) 0.3 L Baso % (Auto) 0.0 Lymph # (Auto) 0.3 L Roberts # (Auto) 0.7 H Eos # (Auto) 0.0 Baso # (Auto) 0.00 Absolute Neuts (auto) 8.59 H PT 12.6 H INR 1.14 APTT 73.7 H Sodium 136 Potassium 4.6 Chloride 94 L Carbon Dioxide 40 H Anion Gap 7 L BUN 35 H Creatinine 0.9 Est GFR ( Amer) > 60 Est GFR (Non-Af Amer) > 60 POC Glucose (mg/dL) Random Glucose 122 H Calcium 7.9 L Phosphorus 4.8 H Magnesium 1.7 Total Bilirubin 0.7 Direct Bilirubin 0.5 H AST 23 ALT 19 Alkaline Phosphatase 49 Total Protein 5.4 L Albumin 2.5 L Globulin 2.8 Albumin/Globulin Ratio 0.9 L 09/14/18 07:35 WBC RBC Hgb Hct MCV MCH MCHC RDW Plt Count MPV Neut % (Auto) Lymph % (Auto) Roberts % (Auto) Eos % (Auto) Baso % (Auto) Lymph # (Auto) Roberts # (Auto) Eos # (Auto) Baso # (Auto) Absolute Neuts (auto) PT INR APTT Sodium Potassium Chloride Carbon Dioxide Anion Gap BUN Creatinine Est GFR ( Amer) Est GFR (Non-Af Amer) POC Glucose (mg/dL) 87 Random Glucose Calcium Phosphorus Magnesium Total Bilirubin Direct Bilirubin AST ALT Alkaline Phosphatase Total Protein Albumin Globulin Albumin/Globulin Ratio Fingerstick Blood Sugar Results: 106 Critical Care Progress Note - Ventilator Checklist Head of Bed 30 Degrees: Yes PUD Prophalyxis: Yes DVT Prophylaxis: Yes - Nutrition Nutrition: Nutrition Category Date Time Status Heart Healthy Diet [DIET] Diets 09/12/18 Lunch Active Assessment/Plan - Assessment and Plan (Free Text) Assessment: Pt is a 73 yo female who was admitted to ICU for AMS and respiratory distress, later found to have a right sided PE with possible PNA and biventricular dysfunction, as well as CHF exacerbation. Plan: Neuro -AAO x3 in NAD -maintain normthermia Cardio -maintain MAP> 65 - lasix 40 mg IVP daily -trops 0.13, 0.08 likely due to RV strain in the setting of PE -Echo: moderate to severe LV dysfunction. Right ventricular hypokinesia and strain in the setting of PE -cardio consulted, following Pulm -resolved; acute respiratory failure secondary to PE and CHF exacerbation - patient on heparin drip as per primary physician; we the ICU team recommend discontinuing and having an IVC filter placed - on 4L NC and saturating 99% - solumedrol 20 mg IVP q12, duonebs q6, acetaolamide 250 bid -CXR: vascular congestion. Repeat CXR shows improvement - LE doppler negative for DVT -CT chest: subsegmental right lung PE with small pleural effusion -CT left LE shows a large posterir lateral hematoma 25 x 9 x 9: surgery consulted, Dr. Morris GI -tolerating diet well Heme - monitor H/H - Hgb 11.3 to 10.4 - recommend discontinuing heparin ID -continue topical nystatin -CPK 79 -UCx, MRSA, BCx, sputum Cx, legionella negative -strep Ag not detected -low procal -antibiotics discontinued -afebrile, no leukocytosis -ID following /Renal -CKD with proteinuria -maintain euvolemia, euglycemia -UDS negative -nephro consulted Dispo: Pt seen, examined, assessment and plan discussed with Dr June Leyva - Date & Time Date: 09/14/18 <June Leyva - Last Filed: 09/14/18 17:58> CCU Objective - Vital Signs / Intake & Output Vital Signs (Last 4 hours): Vital Signs Temp Pulse 09/14/18 17:04 98.2 F 09/14/18 14:00 92 H Intake and Output (Last 8hrs): Intake & Output 09/14/18 09/14/18 09/14/18 06:59 14:59 22:59 Intake Total 210 90 Output Total 1000 Balance -790 90 Weight 105.233 kg Intake: IV 10 90 Oral 200 Output: Urine 1000 Urethral (Alonzo) 1000 Stool 0 - Medications Active Medications: Active Medications Generic Name Dose Route Start Last Admin Trade Name Freq PRN Reason Stop Dose Admin Acetaminophen 650 mg 09/08/18 14:22 09/14/18 17:04 Tylenol 325mg Tab PO 650 mg Q6 PRN Administration TEMP>=99.5F Acetaminophen 650 mg 09/08/18 14:22 Tylenol 650 Mg Supp RC Q6H PRN TEMP>=99.5F Acetazolamide 250 mg 09/14/18 10:30 09/14/18 17:10 Diamox 250 Mg Tab PO 09/16/18 10:31 250 mg BID SABIHA Administration Albuterol/Ipratropium 3 ml 09/13/18 14:00 09/14/18 13:11 Duoneb 3 Mg/0.5 Mg (3 Ml) Ud IH 3 ml [id number] SABIHA Administration Allopurinol 100 mg 09/09/18 10:00 09/14/18 11:15 Zyloprim PO 100 mg DAILY SABIHA Administration Dextrose 0 ml 09/08/18 22:59 Dextrose 50% Inj IV STAT PRN Hypoglycemia Protocol Protocol Ergocalciferol 1 cap 09/10/18 14:30 09/10/18 18:32 Drisdol 50,000 Intl Units Cap PO 1 cap Q7D SABIHA Administration Furosemide 40 mg 09/11/18 10:00 09/14/18 10:00 Lasix IVP 40 mg DAILY SABIHA Administration Dextrose 1,000 mls @ 0 mls/hr 09/08/18 22:59 Dextrose 5% In Water 1000 Ml IV .Q0M PRN Hypoglycemia Protocol Protocol Per Protocol Heparin Sodium/Sodium Chloride 25,000 units in 250 mls @ 19.701 mls/hr 09/12/18 14:38 09/14/18 11:01 Heparin 31307 Units/250ml 1/2 Normal Saline IV 11 units/kg/hr .[id number] PRN 12.04 mls/hr ADJUST RATE PER PROTOCOL Administration Protocol 18 UNITS/KG/HR Insulin Human Lispro 0 units 09/11/18 22:00 09/14/18 17:09 Humalog High SC Not Given ACHS SABIHA Protocol Lactic Acid 0 ea 09/10/18 10:00 09/14/18 11:46 Lac-Hydrin 12% Cream (140 G) TOP 1 applic DAILY SABIHA Administration Losartan Potassium 25 mg 09/14/18 10:00 09/14/18 11:28 Cozaar PO 25 mg DAILY SABIHA Administration Methylprednisolone 20 mg 09/09/18 08:15 09/14/18 09:00 Solu-Medrol IVP 20 mg Q12H SABIHA Administration Nicotine 1 patch 09/09/18 10:00 09/14/18 10:00 Nicoderm Cq TD 1 patch DAILY SABIHA Administration Nystatin 0 gm 09/08/18 18:00 09/14/18 17:06 Nystop Topical Powder TOP 1 pdr Q6 SABIHA Administration Nystatin 0 ea 09/08/18 23:00 09/14/18 17:11 Mycostatin Cream TOP 1 unit TID SABIHA Administration Ondansetron HCl 4 mg 09/08/18 14:22 Zofran Inj IVP Q4H PRN Nausea/Vomiting Pantoprazole Sodium 40 mg 09/11/18 06:00 09/14/18 17:04 Protonix Ec Tab PO 40 mg 0600,1600 SABIHA Administration Patiromer 8.4 gm 09/14/18 10:00 09/14/18 11:03 Veltassa PO 09/16/18 10:01 8.4 gm DAILY SABIHA Administration Polyethylene Glycol 17 gm 09/11/18 10:00 09/14/18 17:09 Miralax PO 17 gm BID SABIHA Administration - Patient Studies Lab Studies: Lab Studies 09/14/18 09/14/18 09/14/18 Range/Units 16:55 11:50 07:35 WBC (4.5-11.0) 10^3/uL RBC (3.5-6.1) 10^6/uL Hgb (12.0-16.0) g/dL Hct (36.0-48.0) % MCV (80.0-105.0) fl MCH (25.0-35.0) pg MCHC (31.0-37.0) g/dl RDW (11.5-14.5) % Plt Count (120.0-450.0) 10^3/uL MPV (7.0-11.0) fl Neut % (Auto) (50.0-68.0) % Lymph % (Auto) (22.0-35.0) % Roberts % (Auto) (1.0-6.0) % Eos % (Auto) (1.5-5.0) % Baso % (Auto) (0.0-3.0) % Lymph # (Auto) (1.2-3.4) Roberts # (Auto) (0.1-0.6) Eos # (Auto) (0.0-0.7) Baso # (Auto) (0.0-2.0) K/mm3 Absolute Neuts (auto) (1.4-6.5) PT (9.4-12.5) SECONDS INR APTT (26.9-38.3) Seconds Sodium (132-148) mmol/L Potassium (3.6-5.0) mmol/L Chloride (98-107) mmol/L Carbon Dioxide (21-33) mmol/L Anion Gap (10-20) BUN (7-21) mg/dL Creatinine (0.7-1.2) mg/dl Est GFR ( Amer) Est GFR (Non-Af Amer) POC Glucose (mg/dL) 148 H 108 87 (65-110) mg/dL Random Glucose (70-110) mg/dL Calcium (8.4-10.5) mg/dL Phosphorus (2.5-4.5) mg/dL Magnesium (1.7-2.2) mg/dL Total Bilirubin (0.2-1.3) mg/dL Direct Bilirubin (0.0-0.4) mg/dL AST (14-36) U/L ALT (7-56) U/L Alkaline Phosphatase (38-126) U/L Total Protein (5.8-8.3) g/dL Albumin (3.0-4.8) g/dL Globulin gm/dL Albumin/Globulin Ratio (1.1-1.8) 09/14/18 09/14/18 09/14/18 Range/Units 03:00 03:00 03:00 WBC 9.6 (4.5-11.0) 10^3/uL RBC 3.53 (3.5-6.1) 10^6/uL Hgb 10.4 L (12.0-16.0) g/dL Hct 35.4 L (36.0-48.0) % MCV 100.3 (80.0-105.0) fl MCH 29.5 (25.0-35.0) pg MCHC 29.4 L (31.0-37.0) g/dl RDW 14.3 (11.5-14.5) % Plt Count 193 (120.0-450.0) 10^3/uL MPV 9.7 (7.0-11.0) fl Neut % (Auto) 90.0 H (50.0-68.0) % Lymph % (Auto) 2.8 L (22.0-35.0) % Roberts % (Auto) 6.9 H (1.0-6.0) % Eos % (Auto) 0.3 L (1.5-5.0) % Baso % (Auto) 0.0 (0.0-3.0) % Lymph # (Auto) 0.3 L (1.2-3.4) Roberts # (Auto) 0.7 H (0.1-0.6) Eos # (Auto) 0.0 (0.0-0.7) Baso # (Auto) 0.00 (0.0-2.0) K/mm3 Absolute Neuts (auto) 8.59 H (1.4-6.5) PT 12.6 H (9.4-12.5) SECONDS INR 1.14 APTT 73.7 H (26.9-38.3) Seconds Sodium 136 (132-148) mmol/L Potassium 4.6 (3.6-5.0) mmol/L Chloride 94 L (98-107) mmol/L Carbon Dioxide 40 H (21-33) mmol/L Anion Gap 7 L (10-20) BUN 35 H (7-21) mg/dL Creatinine 0.9 (0.7-1.2) mg/dl Est GFR ( Amer) > 60 Est GFR (Non-Af Amer) > 60 POC Glucose (mg/dL) (65-110) mg/dL Random Glucose 122 H (70-110) mg/dL Calcium 7.9 L (8.4-10.5) mg/dL Phosphorus 4.8 H (2.5-4.5) mg/dL Magnesium 1.7 (1.7-2.2) mg/dL Total Bilirubin 0.7 (0.2-1.3) mg/dL Direct Bilirubin 0.5 H (0.0-0.4) mg/dL AST 23 (14-36) U/L ALT 19 (7-56) U/L Alkaline Phosphatase 49 (38-126) U/L Total Protein 5.4 L (5.8-8.3) g/dL Albumin 2.5 L (3.0-4.8) g/dL Globulin 2.8 gm/dL Albumin/Globulin Ratio 0.9 L (1.1-1.8) 09/13/18 09/13/18 Range/Units 23:41 20:50 WBC (4.5-11.0) 10^3/uL RBC (3.5-6.1) 10^6/uL Hgb (12.0-16.0) g/dL Hct (36.0-48.0) % MCV (80.0-105.0) fl MCH (25.0-35.0) pg MCHC (31.0-37.0) g/dl RDW (11.5-14.5) % Plt Count (120.0-450.0) 10^3/uL MPV (7.0-11.0) fl Neut % (Auto) (50.0-68.0) % Lymph % (Auto) (22.0-35.0) % Roberts % (Auto) (1.0-6.0) % Eos % (Auto) (1.5-5.0) % Baso % (Auto) (0.0-3.0) % Lymph # (Auto) (1.2-3.4) Roberts # (Auto) (0.1-0.6) Eos # (Auto) (0.0-0.7) Baso # (Auto) (0.0-2.0) K/mm3 Absolute Neuts (auto) (1.4-6.5) PT (9.4-12.5) SECONDS INR APTT 56.0 H (26.9-38.3) Seconds Sodium (132-148) mmol/L Potassium (3.6-5.0) mmol/L Chloride (98-107) mmol/L Carbon Dioxide (21-33) mmol/L Anion Gap (10-20) BUN (7-21) mg/dL Creatinine (0.7-1.2) mg/dl Est GFR ( Amer) Est GFR (Non-Af Amer) POC Glucose (mg/dL) 94 (65-110) mg/dL Random Glucose (70-110) mg/dL Calcium (8.4-10.5) mg/dL Phosphorus (2.5-4.5) mg/dL Magnesium (1.7-2.2) mg/dL Total Bilirubin (0.2-1.3) mg/dL Direct Bilirubin (0.0-0.4) mg/dL AST (14-36) U/L ALT (7-56) U/L Alkaline Phosphatase (38-126) U/L Total Protein (5.8-8.3) g/dL Albumin (3.0-4.8) g/dL Globulin gm/dL Albumin/Globulin Ratio (1.1-1.8) Laboratory Results - last 24 hr 09/13/18 09/13/18 09/14/18 20:50 23:41 03:00 WBC RBC Hgb Hct MCV MCH MCHC RDW Plt Count MPV Neut % (Auto) Lymph % (Auto) Roberts % (Auto) Eos % (Auto) Baso % (Auto) Lymph # (Auto) Roberts # (Auto) Eos # (Auto) Baso # (Auto) Absolute Neuts (auto) PT 12.6 H INR 1.14 APTT 56.0 H 73.7 H Sodium Potassium Chloride Carbon Dioxide Anion Gap BUN Creatinine Est GFR ( Amer) Est GFR (Non-Af Amer) POC Glucose (mg/dL) 94 Random Glucose Calcium Phosphorus Magnesium Total Bilirubin Direct Bilirubin AST ALT Alkaline Phosphatase Total Protein Albumin Globulin Albumin/Globulin Ratio 09/14/18 09/14/18 09/14/18 03:00 03:00 07:35 WBC 9.6 RBC 3.53 Hgb 10.4 L Hct 35.4 L MCV 100.3 MCH 29.5 MCHC 29.4 L RDW 14.3 Plt Count 193 MPV 9.7 Neut % (Auto) 90.0 H Lymph % (Auto) 2.8 L Roberts % (Auto) 6.9 H Eos % (Auto) 0.3 L Baso % (Auto) 0.0 Lymph # (Auto) 0.3 L Roberts # (Auto) 0.7 H Eos # (Auto) 0.0 Baso # (Auto) 0.00 Absolute Neuts (auto) 8.59 H PT INR APTT Sodium 136 Potassium 4.6 Chloride 94 L Carbon Dioxide 40 H Anion Gap 7 L BUN 35 H Creatinine 0.9 Est GFR ( Amer) > 60 Est GFR (Non-Af Amer) > 60 POC Glucose (mg/dL) 87 Random Glucose 122 H Calcium 7.9 L Phosphorus 4.8 H Magnesium 1.7 Total Bilirubin 0.7 Direct Bilirubin 0.5 H AST 23 ALT 19 Alkaline Phosphatase 49 Total Protein 5.4 L Albumin 2.5 L Globulin 2.8 Albumin/Globulin Ratio 0.9 L 09/14/18 09/14/18 11:50 16:55 WBC RBC Hgb Hct MCV MCH MCHC RDW Plt Count MPV Neut % (Auto) Lymph % (Auto) Roberts % (Auto) Eos % (Auto) Baso % (Auto) Lymph # (Auto) Roberts # (Auto) Eos # (Auto) Baso # (Auto) Absolute Neuts (auto) PT INR APTT Sodium Potassium Chloride Carbon Dioxide Anion Gap BUN Creatinine Est GFR ( Amer) Est GFR (Non-Af Amer) POC Glucose (mg/dL) 108 148 H Random Glucose Calcium Phosphorus Magnesium Total Bilirubin Direct Bilirubin AST ALT Alkaline Phosphatase Total Protein Albumin Globulin Albumin/Globulin Ratio Critical Care Progress Note - Nutrition Nutrition: Nutrition Category Date Time Status Heart Healthy Diet [DIET] Diets 09/12/18 Lunch Active Addendum Addendum: 09/14/18 17:56 MICU Attending Addendum Patient seen and examined [place] discussed with housestaff; agree with resident note above with the following additions/exceptions: 73F admitted for AMS and respiratory distress found to have a right sided PE. Not given tpa. Started on heparin, subsequently developed large thigh hematoma. From a pulm standpoint she improved and weaned down to nasal [place] today Feels better, no cp no SOB hemodynamically stable would stop heparin and insert IVC filter given hematoma in addition HB dropped 1 gram again d/w PMD who got in touch with surg attending and will re-evaluate the patient i think she would benefit from an IVC filter either way as a means of protection in case the bleeding continue or she need surgical intervention would stop abx given procal <0.05 and no evid of sepsis d/c xopenex and switch to duonebs given smoking hx and likely underlying COPD cont steroids for at least 5 days neprho managing CKD / proteinuria dvt ppx on hep GI ppx not indicated Rest of care as in above resident note June Leyva MD MICU Attending cc time 35 mins
[2018-09-14 17:57] LABS: HEMOGLOBIN 9.7 g/dL (12.0-16.0)
[2018-09-14 18:03] LABS: INR 1.06; PARTIAL THROMBOPLASTIN TIME 50.9 Seconds (26.9-38.3); PROTHROMBIN TIME 11.8 SECONDS (9.4-12.5)
--- NOTE | 2018-09-14 18:50 | PN ---
DATE: 09/14/2018 SUBJECTIVE: The patient is currently comfortable. She denies any chest pain. Oxygenating well with nasal O2. PHYSICAL EXAMINATION: VITAL SIGNS: Blood pressure 104/54, heart rate 92, temperature 97.9 and respiration 20. HEENT: Normocephalic. CHEST: Clear. HEART: S1 and S2, regular. EXTREMITIES: 1+ pitting edema. LABORATORY DATA: Hemoglobin and hematocrit 10.4 and 35.4. White count and platelet count are within normal limits. SMA-7, sodium 136, potassium 4.6, chloride 94, CO2 of 40, glucose 122, BUN 35 and creatinine 0.9. Today's PTT 73.7 and INR is 1.14. ASSESSMENT: 1. Pulmonary embolism. 2. Acute right ventricular failure secondary to pulmonary embolism. 3. Severe left ventricular systolic function. RECOMMENDATIONS: Continue current Cozaar 25 mg once a day, Diamox 250 mg twice a day intravenous heparin at therapeutic regimen, continue Lasix 40 mg daily and Solu-Medrol 20 mg intravenous every 12 hours. Alessio Greer MD
[2018-09-15] MEDS: Nystatin 100,000 Units/gm Topical Pow(15 gm) TOP SCH ×4 (00:05→18:23)
[2018-09-15] MEDS: Albuterol-Ipratrop 3 mg / 0.5 (3 ml) UD IH SCH ×4 (01:20→20:30)
[2018-09-15 02:18] LABS: HEMOGLOBIN 8.8 g/dL (12.0-16.0)
[2018-09-15 05:09] LABS: BASO # 0.01 K/mm3 (0.0-2.0); BASO % 0.1 % (0.0-3.0); EOS % 0.1 % (1.5-5.0); HEMOGLOBIN 8.5 g/dL (12.0-16.0); LYMPH # 0.3 (1.2-3.4); LYMPH % 2.8 % (22.0-35.0); MEAN CELL VOLUME 99.3 fl (80.0-105.0); MEAN CORPUSCULAR HEMOGLOBIN 29.1 pg (25.0-35.0); MEAN CORPUSCULAR HGB CONC 29.3 g/dl (31.0-37.0); MONO # 0.5 (0.1-0.6); MONO % 4.5 % (1.0-6.0); RBC 2.92 10^6/uL (3.5-6.1); RED CELL DISTRIBUTION WIDTH 14.4 % (11.5-14.5); WHITE BLOOD COUNT 11.5 10^3/uL (4.5-11.0)
[2018-09-15] MEDS: Pantoprazole 40 mg EC Tab PO SCH ×2 (05:11→16:48)
[2018-09-15 05:30] LABS: INR 1.01; PROTHROMBIN TIME 11.4 SECONDS (9.4-12.5)
[2018-09-15 06:14] LABS: ALB/GLOB RATIO 0.9 (1.1-1.8); ALBUMIN 2.5 g/dL (3.0-4.8); BILIRUBIN,DIRECT 0.4 mg/dL (0.0-0.4); CALCIUM 8.4 mg/dL (8.4-10.5)
--- NOTE | 2018-09-15 08:06 | PN ---
DATE: 09/15/2018 LOCATION: The patient is in ICU, bed 3. SUBJECTIVE: The patient overnight nurse's notes were reviewed. The patient required BiPAP for oxygen supplementation. The patient's heparin was stopped by the resident care technician because of decreasing hemoglobin and hematocrit. The patient was ordered 1 unit of FFP according to the nurses' notes and orders from the resident care technician. The patient has been typed and crossmatched. No overt bleeding was noted. PHYSICAL EXAMINATION: VITAL SIGNS: T-max 98.3. Telemetry shows heart rate 70, blood pressure 99/47, lowest blood pressure recorded in the last 12 hours, 84/46; respirations 21; O2 sat 91-4%. Intake 1152, output 950. HEAD EXAMINATION: Normocephalic, atraumatic. HEENT EXAMINATION: Shows pinkish pale conjunctivae. Anicteric sclerae. No oropharyngeal lesion. No neck rigidity. Positive right-sided right internal jugular triple-lumen catheter. CHEST EXAMINATION: Kyphosis. LUNG EXAMINATION: Shows decreased breath sound at the bases, left more than the right. Occasional rhonchi. No audible wheezing, rales, or crackles. CARDIOVASCULAR EXAMINATION: S1, S2. Positive systolic murmur in left sternal border, right second intercostal space, left second intercostal space. ABDOMEN: Soft. Positive bowel sounds. Unable to palpate any hepatosplenomegaly. GENITALIA: Female. RECTAL EXAMINATION: Deferred. Positive Alonzo catheter. Positive left posterior thigh ecchymosis and soft hematoma noted. Trace swelling of the lower extremity noted. MUSCULOSKELETAL EXAMINATION: Shows an elevated body mass index. NEUROLOGIC: The patient is alert, awake, responsive. Gait examination not tested. DIAGNOSTIC DATA: Available diagnostics from 09/15/2018, WBC 11.5, hemoglobin and hematocrit have dropped to 8.5 and 29, platelet 175, granulocytes 93%, PT/PTT 11.4 and 24. CMP and LFTs are pending. The patient has been typed and crossmatched for 2 units of PRBC. IMPRESSION AND PLAN: 1. Hypotension, etiology unclear. 2. Anemia with decreasing hemoglobin and hematocrit, etiology unclear at this time. 3. Granulocytosis. 4. Hypotension. 5. Hypoxemia. 6. Severe sepsis secondary to multilobar bilateral community-acquired versus healthcare-associated pneumonia. 7. Status post ventilator-dependent respiratory failure. 8. Status post acute exacerbation of chronic obstructive pulmonary disease and hypercapnic respiratory failure. 9. Acute exacerbation of chronic obstructive pulmonary disease with bronchospasm, hypoxemia, and hypercapnia. 10. Right-sided multilobar pulmonary embolism. 11. Acute [id number] myocardial infarction with elevated troponin. 12. Coronary ischemia. 13. Inferolateral coronary ischemic changes with acute [id number]-[id number] myocardial infarction with elevated troponin. 14. Nicotine addiction and dependence. 15. Cholelithiasis with questionable cholecystitis. 16. Left posterior thigh hematoma secondary to fall. 17. Gait dysfunction. 18. Deconditioning. 19. Bibasilar atelectasis, infiltrate, pneumonia, pleural effusion. 20. Underlying emphysema. 21. Status post respiratory failure. 22. Right-sided diastolic congestive heart failure with bilateral venous stasis of the lower extremity and elevated ProBNP. 23. Hypovitaminosis D. 24. Hyperuricemia. 25. New-onset type 2 diabetes mellitus with hyperglycemia and hemoglobin A1c of 6.8. 1. Questionable and possible expanding left posterior thigh hematoma with decreasing hemoglobin and hematocrit and anemia. 2. Status post ventilator-dependent respiratory failure. 3. Acute exacerbation of chronic obstructive pulmonary disease with hypoxemia, hypercarbia, hypercapnia. 4. Acute hypoxic hypercarbic ventilatory dependent respiratory failure. 5. Acute non-ST elevation myocardial infarction with elevated troponin and EKG changes. 6. Hypertension. 7. Prerenal kidney injury. 8. Metabolic alkalosis. 9. Mild protein malnutrition and hypoalbuminemia. 10. Acute systolic congestive heart failure. 11. New onset early type 2 diabetes mellitus with hemoglobin A1c of 6.8. 12. Hyperuricemia. 13. Morbid obesity. 14. Active nicotine addiction and dependence. 15. Hypomagnesemia. 16. Hypocalcemia. 17. Bilateral lower extremity venous stasis. 18. Right-sided multilobar pulmonary embolism. 19. Questionable acute cholecystitis and cholelithiasis. 1. Status post ventilator-dependent respiratory failure. 2. Acute right-sided multilobar pulmonary embolism. 3. Acute non-ST elevation myocardial infarction. 4. 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 5. Chronic kidney disease stage 3 with proteinuria and right kidney atrophic scarring. 6. Acute exacerbation of chronic obstructive pulmonary disease with hypoxemia, hypercarbia. 7. Bilateral multilobar pneumonia, atelectasis and effusion. 8. Acute hypercapnic hypoxic respiratory failure with metabolic alkalosis. 9. Hyperkalemia. 10. Hypertension. 11. Status post erythrocytosis. 12. Granulocytosis. 13. Normocytic anemia. 14. Lymphopenia. 15. Elevated D-dimer of 1600 upon admission. 16. Metabolic alkalosis. 17. Prerenal kidney injury. 18. New-onset diabetes mellitus. 19. Hyperuricemia. 20. Hypovitaminosis D. 21. Gait dysfunction. 22. Deconditioning. 23. Non-hemolyzed hyperkalemia. 24. Constipation. 1. Ventilator-dependent respiratory failure. 2. Status post extubation. 3. Continuous positive airway pressure dependent respiratory failure. 4. Acute right-sided multilobar pulmonary embolism. 5. Acute non-ST elevation myocardial infarction. 6. Left posterior medial thigh hematoma with intramuscular hematoma. 7. Right basilar pneumothorax, decreased in size. 8. Bibasilar atelectasis and bilateral pleural effusion, right more than the left and infiltrate. 9. Right hepatic lobe cyst. 10. Cholelithiasis. 11. Splenic cyst. 12. Atrophic right kidney. 13. Uterine fibroid. 14. Sigmoid diverticulosis. 15. Fecal stasis. 16. Degenerative joint disease of the spine. 17. Left upper thigh hematoma. 18. Questionable acute cholecystitis. 19. Constipation. 20. Hepatomegaly. 21. Hepatic steatosis. 22. Right-sided aortic arch with aberrant left subclavian artery. 23. Bibasilar pneumonia and ground-glass opacities. 24. Mediastinal lymphadenopathy. 25. Cardiomyopathy with left ventricular ejection fraction of 40% with moderate to severely impaired left ventricular systolic function, grade I abnormal relaxation pattern. 26. Severely hypokinetic and dilated right ventricle. 27. Morbid obesity. 28. New-onset diabetes mellitus with hemoglobin A1c of 6.8. 29. Bilateral heel calluses of the feet and xerosis of both feet. 30. Chronic kidney disease. 31. Acute hypoxic hypercapnic respiratory failure with renal metabolic compensation. 32. Severe sepsis with acute ventilator-dependent respiratory failure, status post extubation. 33. Biventricular dysfunction. 34. Community-acquired pneumonia and bilateral pleural effusion. 35. Possible anterior abdominal wall cellulitis. 36. Status post erythrocytosis and granulocytosis. 37. Elevated D-dimer of 1600. 38. Hypoxemia, hypercarbia and respiratory acidosis. 39. Metabolic acidosis. 40. Prerenal kidney injury. 41. Acute systolic congestive heart failure with elevated ProBNP. 42. Hypovitaminosis D. 43. Mild protein malnutrition and mild hypoalbuminemia. 44. Proteinuria, bilirubinuria. 45. Deconditioning. 46. Gait dysfunction. 47. History of nicotine addiction and dependence. 48. Intravenous dobutamine-dependent congestive heart failure. 49. Hypomagnesemia. 50. Nicotine dependence. 51. Hyperuricemia. 1. Acute ventilator-dependent respiratory failure, status post extubation. 2. Acute right-sided multilobar pulmonary embolism. 3. Acute non-ST elevation myocardial infarction. 4. Acute systolic congestive heart failure with left ventricle ejection fraction of 39% and decreased left ventricular systolic function. 5. Pulmonary vascular congestion and congestive heart failure. 6. Bilateral pleural effusion. 7. Possible community-acquired versus healthcare-associated right middle lobe, right lower lobe pneumonia. 8. Cholelithiasis. 9. Constipation. 10. Right ventricular conduction delay. 11. Anterolateral coronary ischemia. 12. Hypoxemia. 13. Acute systolic congestive heart failure with elevated pro-brain natriuretic peptide. 14. Mild protein malnutrition and mild hypoalbuminemia. 15. Hepatomegaly. 16. Hepatic steatosis. 17. Hypovitaminosis D. 18. Grade 1 abnormal relaxation pattern. 19. Right ventricular dilatation and hypokinesis. 20. Severe deconditioning and gait dysfunction. 21. Status post fever. 22. Severe sepsis. 23. Bilateral lower extremity venous stasis. 24. Obesity. 25. New-onset diabetes mellitus with hemoglobin A1c of 6.8. 26. Hyperuricemia. 1. Acute ventilator-dependent respiratory failure. 2. Acute multilobar right-sided pulmonary embolism. 3. Acute exacerbation of chronic obstructive pulmonary disease with hypoxemia. 4. Prerenal kidney injury. 5. New onset early diabetes mellitus. 6. Acute systolic congestive heart failure with elevated ProBNP. 7. Borderline hypomagnesemia. 8. Mild protein malnutrition and hypoalbuminemia. 9. Hypovitaminosis D. 10. Multilobar right lower lobe and right middle lobe pneumonia and pleural effusion. 11. Cholelithiasis. 12. Hepatomegaly. 13. Hepatic steatosis. 14. Possible cardiomyopathy with left ventricular ejection fraction of 39% with decreased left ventricular systolic function. 15. Grade 1 abnormal relaxation pattern. 16. Right ventricular dilatation and hypokinesis. 17. Right ventricular conduction delay. 18. T-wave abnormalities V1-V6. 19. Acute non-ST elevation myocardial infarction with elevated troponin. 20. Bilateral lower extremity venous stasis. 21. Morbid obesity. 22. Active nicotine addiction and dependence. 23. New-onset diabetes mellitus. 1. Acute hypoxic hypercapnic ventilator-dependent respiratory failure. 2. Right lower lobe acute pulmonary embolism. 3. Hypoxemia. 4. Severe sepsis. 5. Acute exacerbation of chronic obstructive pulmonary disease with hypoxemia. 6. Congestive heart failure, most likely right-sided diastolic congestive heart failure. 7. Fever. 8. Possible bilateral multilobar bibasilar pneumonia. 9. Acute [id number] myocardial infarction with elevated troponin of 0.13. 10. Coronary ischemic changes on the EKG. 11. Morbid obesity with diagnosis of active nicotine addiction and dependence. 12. Possible healthcare versus community-acquired multilobar pneumonia. 13. Active nicotine addiction. 14. Status post right internal jugular triple lumen placement. 15. Bilateral pleural effusion. 16. Morbid obesity. 17. Early diabetes mellitus. 18. Right axis deviation. 1. Acute ventilator-dependent respiratory failure. 2. Acute ventilator-dependent hypoxic-hypercarbic respiratory failure. 3. Respiratory acidosis with hypercarbia. 4. Distal right lower lobe and proximal right lower lobe segmental branches pulmonary embolism. 5. Right lower lobe pneumonia, infiltrate atelectasis with right-sided effusion. 6. Bibasilar atelectasis. 7. Cardiomegaly. 8. Possible pulmonary hypertension. 9. Right-sided aortic arch with aberrant left subclavian artery. 10. Left lower lobe atelectasis. 11. Bibasilar pulmonary opacities versus pneumonia. 12. Nonspecific mediastinal lymphadenopathy. 13. Active nicotine addiction and dependence. 14. Right renal atrophic scarring. 15. Right axis deviation. 16. Right ventricular hypertrophy. 17. Possible acute non-ST elevation myocardial infarction with elevated troponin. 18. Questionable sepsis with high-grade fever. 19. Tachycardia. 20. Tachypnea. 21. Hypoxemia. 22. Erythrocytosis with granulocytosis. 23. Elevated d-dimer. 24. Hypercarbia respiratory acidosis. 25. Non-hemolyzed hyperkalemia. 26. Possible new-onset diabetes mellitus. 27. Metabolic alkalosis. 28. Prerenal kidney injury. 29. Acute non-ST elevation myocardial infarction with elevated troponin and abnormal electrocardiogram with right axis deviation, right ventricular hypertrophy, and age indeterminate inferior infarct and possible lateral subendocardial injury. 30. Hyperphosphatemia. 31. Congestive heart failure whether systolic or diastolic with elevated ProBNP. 32. Proteinuria. 33. Bibasilar atelectasis, pneumonia and bilateral pleural effusion. 34. Cardiomegaly. 35. Status post right internal jugular triple-lumen catheter placement. 36. High-grade fever. 37. Right-sided aortic arch. 38. Acute exacerbation of chronic obstructive pulmonary disease. 39. Bibasilar atelectasis, infiltrate and bilateral pleural effusion. 40. Bilateral inguinal area fungal rash. 41. Severe sepsis. 42. Morbid obesity. 43. Bilateral lower extremity venous stasis. 44. Early diabetes mellitus. PLAN: At this time, the patient's IV heparin has been stopped by the surgical residents and the surgery team. The patient has been ordered 1 unit of FFP. The patient has been ordered 1 unit of PRBC today to keep a target hemoglobin around 10 g. The patient will be continued on the therapeutic intervention as per the MAR of today. The patient has been consulted with Hematology, Surgery, Cardiology, Infectious Disease, and Nephrology. The patient's further management will be dependent upon the patient's clinical condition, hemodynamic status, and as per the patient's response to therapeutic intervention, and as per diagnostic test results. Due to the patient's multiple complicated comorbidities, the patient is at risk for multiple complications, but at present it seems like the patient is becoming a high risk for anticoagulation because of decreasing hemoglobin and hematocrit of unknown etiology without a very clear source of bleeding at present, though the patient was evaluated by Surgery attending yesterday, the left thigh hematoma does not appear to be increasing because the left posterior thigh is soft on examination, which appears to be a resolving hematoma as per the Surgery attending. So at present, the patient will be continued on the above therapeutic intervention with close monitoring in the ICU until further stabilization of hemodynamics and objective clinical and lab data. Time spent more than 35 minutes. Dictated and electronically signed, not read. Manuel Law MD [id number]
[2018-09-15] MEDS: Insulin Lispro (HUMAlog) HIGH Coverage SC SCH ×4 (08:23→22:24)
[2018-09-15] MEDS: MethylPREDNISolone 40 mg Vial IVP SCH (08:45)
--- NOTE | 2018-09-15 09:40 | PN ---
DATE: 09/14/2018 SUBJECTIVE: The patient is seen today in ICU, the patient out of bed to recliner. The patient is alert, awake, responsive. The patient is on oxygen supplementation. Overnight nurse's notes were reviewed. There was a concern by the nurses that the left thigh hematoma is getting bigger. The patient was examined sitting in the recliner. There is bruising and bluish discoloration of the left posterior thigh, but both thigh appear to be equal. There is no high tenderness noted on examination. PHYSICAL EXAMINATION VITAL SIGNS: T-max 98.3, telemetry normal sinus rhythm, heart rate 67-78, respiration 20, blood pressure 120/57. INTAKE AND OUTPUT: Intake is 631 and output is 1725. HEENT: Head examination normocephalic and atraumatic. HEENT examination shows pinkish pale conjunctivae. Anicteric sclerae. No oropharyngeal lesion. No neck rigidity. CHEST: Kyphosis. LUNGS: Shows no wheezing, but positive creps, rhonchi bilaterally. Decreased breath sound at the bases, left more than the right. CARDIOVASCULAR: Shows S1 and S2, regular rhythm. Positive systolic murmur left sternal border, right second intercostal space, left second intercostal space. ABDOMEN: Obese and protuberant. Positive bowel sounds. No palpable hepatosplenomegaly. GENITALIA: Female. RECTAL: Examination is deferred. EXTREMITIES: Shows positive swelling of the lower extremity. Positive left posterior thigh bruising, ecchymosis noted, the left posterior thigh is soft to touch. There is no thigh tenderness noted. MUSCULOSKELETAL: Shows an elevated body mass index. NEUROLOGIC: The patient is alert, awake, responsive, is able to follow commands. Move upper and lower extremity without assistance. Gait examination is not tested. Psychiatric examination not applicable. DIAGNOSTIC DATA: September 14; WBC 9.6, hemoglobin and hematocrit has dropped to 10.4 and 35.4 with platelet 193. PT 12.6 and PTT 74. Sodium 136, potassium 4.6, chloride 94, CO2 of 40, BUN 35, creatinine 0.9, glucose of 122, calcium 7.9, phosphorus 4.8, magnesium 1.7, total protein 5.4 and albumin 2.5. IMPRESSION: 1. Questionable and possible expanding left posterior thigh hematoma with decreasing hemoglobin and hematocrit and anemia. 2. Status post ventilator-dependent respiratory failure. 3. Acute exacerbation of chronic obstructive pulmonary disease with hypoxemia, hypercarbia, hypercapnia. 4. Acute hypoxic hypercarbic ventilatory dependent respiratory failure. 5. Acute non-ST elevation myocardial infarction with elevated troponin and EKG changes. 6. Hypertension. 7. Prerenal kidney injury. 8. Metabolic alkalosis. 9. Mild protein malnutrition and hypoalbuminemia. 10. Acute systolic congestive heart failure. 11. New onset early type 2 diabetes mellitus with hemoglobin A1c of 6.8. 12. Hyperuricemia. 13. Morbid obesity. 14. Active nicotine addiction and dependence. 15. Hypomagnesemia. 16. Hypocalcemia. 17. Bilateral lower extremity venous stasis. 18. Right-sided multilobar pulmonary embolism. 19. Questionable acute cholecystitis and cholelithiasis. 1. Status post ventilator-dependent respiratory failure. 2. Acute right-sided multilobar pulmonary embolism. 3. Acute non-ST elevation myocardial infarction. 4. 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 5. Chronic kidney disease stage 3 with proteinuria and right kidney atrophic scarring. 6. Acute exacerbation of chronic obstructive pulmonary disease with hypoxemia, hypercarbia. 7. Bilateral multilobar pneumonia, atelectasis and effusion. 8. Acute hypercapnic hypoxic respiratory failure with metabolic alkalosis. 9. Hyperkalemia. 10. Hypertension. 11. Status post erythrocytosis. 12. Granulocytosis. 13. Normocytic anemia. 14. Lymphopenia. 15. Elevated D-dimer of 1600 upon admission. 16. Metabolic alkalosis. 17. Prerenal kidney injury. 18. New-onset diabetes mellitus. 19. Hyperuricemia. 20. Hypovitaminosis D. 21. Gait dysfunction. 22. Deconditioning. 23. Non-hemolyzed hyperkalemia. 24. Constipation. 1. Ventilator-dependent respiratory failure. 2. Status post extubation. 3. Continuous positive airway pressure dependent respiratory failure. 4. Acute right-sided multilobar pulmonary embolism. 5. Acute non-ST elevation myocardial infarction. 6. Left posterior medial thigh hematoma with intramuscular hematoma. 7. Right basilar pneumothorax, decreased in size. 8. Bibasilar atelectasis and bilateral pleural effusion, right more than the left and infiltrate. 9. Right hepatic lobe cyst. 10. Cholelithiasis. 11. Splenic cyst. 12. Atrophic right kidney. 13. Uterine fibroid. 14. Sigmoid diverticulosis. 15. Fecal stasis. 16. Degenerative joint disease of the spine. 17. Left upper thigh hematoma. 18. Questionable acute cholecystitis. 19. Constipation. 20. Hepatomegaly. 21. Hepatic steatosis. 22. Right-sided aortic arch with aberrant left subclavian artery. 23. Bibasilar pneumonia and ground-glass opacities. 24. Mediastinal lymphadenopathy. 25. Cardiomyopathy with left ventricular ejection fraction of 40% with moderate to severely impaired left ventricular systolic function, grade I abnormal relaxation pattern. 26. Severely hypokinetic and dilated right ventricle. 27. Morbid obesity. 28. New-onset diabetes mellitus with hemoglobin A1c of 6.8. 29. Bilateral heel calluses of the feet and xerosis of both feet. 30. Chronic kidney disease. 31. Acute hypoxic hypercapnic respiratory failure with renal metabolic compensation. 32. Severe sepsis with acute ventilator-dependent respiratory failure, status post extubation. 33. Biventricular dysfunction. 34. Community-acquired pneumonia and bilateral pleural effusion. 35. Possible anterior abdominal wall cellulitis. 36. Status post erythrocytosis and granulocytosis. 37. Elevated D-dimer of 1600. 38. Hypoxemia, hypercarbia and respiratory acidosis. 39. Metabolic acidosis. 40. Prerenal kidney injury. 41. Acute systolic congestive heart failure with elevated ProBNP. 42. Hypovitaminosis D. 43. Mild protein malnutrition and mild hypoalbuminemia. 44. Proteinuria, bilirubinuria. 45. Deconditioning. 46. Gait dysfunction. 47. History of nicotine addiction and dependence. 48. Intravenous dobutamine-dependent congestive heart failure. 49. Hypomagnesemia. 50. Nicotine dependence. 51. Hyperuricemia. 1. Acute ventilator-dependent respiratory failure, status post extubation. 2. Acute right-sided multilobar pulmonary embolism. 3. Acute non-ST elevation myocardial infarction. 4. Acute systolic congestive heart failure with left ventricle ejection fraction of 39% and decreased left ventricular systolic function. 5. Pulmonary vascular congestion and congestive heart failure. 6. Bilateral pleural effusion. 7. Possible community-acquired versus healthcare-associated right middle lobe, right lower lobe pneumonia. 8. Cholelithiasis. 9. Constipation. 10. Right ventricular conduction delay. 11. Anterolateral coronary ischemia. 12. Hypoxemia. 13. Acute systolic congestive heart failure with elevated pro-brain natriuretic peptide. 14. Mild protein malnutrition and mild hypoalbuminemia. 15. Hepatomegaly. 16. Hepatic steatosis. 17. Hypovitaminosis D. 18. Grade 1 abnormal relaxation pattern. 19. Right ventricular dilatation and hypokinesis. 20. Severe deconditioning and gait dysfunction. 21. Status post fever. 22. Severe sepsis. 23. Bilateral lower extremity venous stasis. 24. Obesity. 25. New-onset diabetes mellitus with hemoglobin A1c of 6.8. 26. Hyperuricemia. 1. Acute ventilator-dependent respiratory failure. 2. Acute multilobar right-sided pulmonary embolism. 3. Acute exacerbation of chronic obstructive pulmonary disease with hypoxemia. 4. Prerenal kidney injury. 5. New onset early diabetes mellitus. 6. Acute systolic congestive heart failure with elevated ProBNP. 7. Borderline hypomagnesemia. 8. Mild protein malnutrition and hypoalbuminemia. 9. Hypovitaminosis D. 10. Multilobar right lower lobe and right middle lobe pneumonia and pleural effusion. 11. Cholelithiasis. 12. Hepatomegaly. 13. Hepatic steatosis. 14. Possible cardiomyopathy with left ventricular ejection fraction of 39% with decreased left ventricular systolic function. 15. Grade 1 abnormal relaxation pattern. 16. Right ventricular dilatation and hypokinesis. 17. Right ventricular conduction delay. 18. T-wave abnormalities V1-V6. 19. Acute non-ST elevation myocardial infarction with elevated troponin. 20. Bilateral lower extremity venous stasis. 21. Morbid obesity. 22. Active nicotine addiction and dependence. 23. New-onset diabetes mellitus. 1. Acute hypoxic hypercapnic ventilator-dependent respiratory failure. 2. Right lower lobe acute pulmonary embolism. 3. Hypoxemia. 4. Severe sepsis. 5. Acute exacerbation of chronic obstructive pulmonary disease with hypoxemia. 6. Congestive heart failure, most likely right-sided diastolic congestive heart failure. 7. Fever. 8. Possible bilateral multilobar bibasilar pneumonia. 9. Acute [id number] myocardial infarction with elevated troponin of 0.13. 10. Coronary ischemic changes on the EKG. 11. Morbid obesity with diagnosis of active nicotine addiction and dependence. 12. Possible healthcare versus community-acquired multilobar pneumonia. 13. Active nicotine addiction. 14. Status post right internal jugular triple lumen placement. 15. Bilateral pleural effusion. 16. Morbid obesity. 17. Early diabetes mellitus. 18. Right axis deviation. 1. Acute ventilator-dependent respiratory failure. 2. Acute ventilator-dependent hypoxic-hypercarbic respiratory failure. 3. Respiratory acidosis with hypercarbia. 4. Distal right lower lobe and proximal right lower lobe segmental branches pulmonary embolism. 5. Right lower lobe pneumonia, infiltrate atelectasis with right-sided effusion. 6. Bibasilar atelectasis. 7. Cardiomegaly. 8. Possible pulmonary hypertension. 9. Right-sided aortic arch with aberrant left subclavian artery. 10. Left lower lobe atelectasis. 11. Bibasilar pulmonary opacities versus pneumonia. 12. Nonspecific mediastinal lymphadenopathy. 13. Active nicotine addiction and dependence. 14. Right renal atrophic scarring. 15. Right axis deviation. 16. Right ventricular hypertrophy. 17. Possible acute non-ST elevation myocardial infarction with elevated troponin. 18. Questionable sepsis with high-grade fever. 19. Tachycardia. 20. Tachypnea. 21. Hypoxemia. 22. Erythrocytosis with granulocytosis. 23. Elevated d-dimer. 24. Hypercarbia respiratory acidosis. 25. Non-hemolyzed hyperkalemia. 26. Possible new-onset diabetes mellitus. 27. Metabolic alkalosis. 28. Prerenal kidney injury. 29. Acute non-ST elevation myocardial infarction with elevated troponin and abnormal electrocardiogram with right axis deviation, right ventricular hypertrophy, and age indeterminate inferior infarct and possible lateral subendocardial injury. 30. Hyperphosphatemia. 31. Congestive heart failure whether systolic or diastolic with elevated ProBNP. 32. Proteinuria. 33. Bibasilar atelectasis, pneumonia and bilateral pleural effusion. 34. Cardiomegaly. 35. Status post right internal jugular triple-lumen catheter placement. 36. High-grade fever. 37. Right-sided aortic arch. 38. Acute exacerbation of chronic obstructive pulmonary disease. 39. Bibasilar atelectasis, infiltrate and bilateral pleural effusion. 40. Bilateral inguinal area fungal rash. 41. Severe sepsis. 42. Morbid obesity. 43. Bilateral lower extremity venous stasis. 44. Early diabetes mellitus. PLAN: At this time, the patient's detailed management was discussed with the yard person and the surgical attending at length. Surgical reevaluation is pending today. The patient has been ordered type and crossmatch for PRBC, if any further drop in hemoglobin and hematocrit. The patient will be continued on therapeutic intervention as per the MAR of today. The decision about regarding the continuation and discontinuation of the heparin is contemplated, but it is not decided because the surgery feels that the patient should be on some kind of anticoagulation at present, preferably intravenous anticoagulation which can be controlled and reversed in a timely manner rather than oral anticoagulation with monitoring of the patient's hemodynamics and lab data and hemoglobin and hematocrit and if any further drop in the hemoglobin and hematocrit the patient will need transfusion of PRBC to optimize hematological parameters. In present, the patient will continue on all the therapeutic intervention as per the MAR. The patient will continue on bronchodilators. The patient will continue on IV diuretics. The patient will continue on SCDs and OCHOA stockings. The patient will continue on leg elevation. The patient will continue on GI prophylaxis. The patient has also been ordered serial labs for the morning. Overall prognosis is guarded to poor. Condition critical. Time spent in the entire management more than 35 minutes. Dictated and electronically signed, not read. Signing off Manuel Law MD. Manuel Lwa MD MTDD
--- NOTE | 2018-09-15 09:45 | CP.PCM.PN ---
Subjective - Date & Time of Evaluation Date of Evaluation: 09/15/18 Time of Evaluation: 06:45 - Subjective Subjective: General Surgery: Dr Kathleen Pt S&E in ICU this morning. Resting comfortably. LLE evaluated, no evidence of expanding hematoma. Ecchymosis has progressed based on supine dependence, but compartments remain soft and non-tender. HgB latest 8.5 from 8.8. She is receiving 1 unit pRBC for target of 9 given cardiac history. Was taken off Hep drip yesterday and given two units FFP. PTT normalized this morning. No evidence of tachycardia or overt bleeding at this time. REctal exam was negative for any lakes[place]ia or occult blood. Pt was prior to tolerating diet with no episodes of emesis. Complete body physical exam performed and no other sources of bleeding noted. Objective - Vital Signs/Intake and Output Vital Signs (last 24 hours): Temp Pulse Resp BP Pulse Ox 98.3 F 74 21 99/47 L 94 L 09/15/18 04:00 09/15/18 06:00 09/14/18 22:00 09/14/18 22:00 09/14/18 22:00 Intake and Output: 09/15/18 09/15/18 06:59 18:59 Intake Total 633 Output Total 900 Balance -267 - Medications Medications: Current Medications Acetaminophen (Tylenol 325mg Tab) 650 mg PO Q6 PRN PRN Reason: TEMP>=99.5F Last Admin: 09/14/18 17:04 Dose: 650 mg Acetaminophen (Tylenol 650 Mg Supp) 650 mg RC Q6H PRN PRN Reason: TEMP>=99.5F Acetazolamide (Diamox 250 Mg Tab) 250 mg PO BID [facility] [place] Stop: 09/16/18 10:31 Last Admin: 09/14/18 17:10 Dose: 250 mg Albuterol/Ipratropium (Duoneb 3 Mg/0.5 Mg (3 Ml) Ud) 3 ml IH [id number] [facility] [place] Last Admin: 09/15/18 08:07 Dose: 3 ml Allopurinol (Zyloprim) 100 mg PO DAILY [facility] [place] Last Admin: 09/14/18 11:15 Dose: 100 mg Dextrose (Dextrose 50% Inj) 0 ml IV STAT PRN; Protocol PRN Reason: Hypoglycemia Protocol Ergocalciferol (Drisdol 50,000 Intl Units Cap) 1 cap PO Q7D [facility] [place] Last Admin: 09/10/18 18:32 Dose: 1 cap Furosemide (Lasix) 40 mg IVP DAILY [facility] [place] Last Admin: 09/14/18 10:00 Dose: 40 mg Dextrose (Dextrose 5% In Water 1000 Ml) 1,000 mls @ 0 mls/hr IV .Q0M PRN; Protocol PRN Reason: Hypoglycemia Protocol Insulin Human Lispro (Humalog High) 0 units SC ACHS [facility] [place]; Protocol Last Admin: 09/15/18 08:23 Dose: Not Given Lactic Acid (Lac-Hydrin 12% Cream (140 G)) 0 ea TOP DAILY [facility] [place] Last Admin: 09/14/18 11:46 Dose: 1 applic Methylprednisolone (Solu-Medrol) 20 mg IVP Q12H [facility] [place] Last Admin: 09/15/18 08:45 Dose: 20 mg Nicotine (Nicoderm Cq) 1 patch TD DAILY [facility] [place] Last Admin: 09/14/18 10:00 Dose: 1 patch Nystatin (Nystop Topical Powder) 0 gm TOP Q6 [facility]IHA Last Admin: 09/15/18 05:11 Dose: 1 pdr Nystatin (Mycostatin Cream) 0 ea TOP TID [facility] [place] Last Admin: 09/14/18 17:11 Dose: 1 unit Ondansetron HCl (Zofran Inj) 4 mg IVP Q4H PRN PRN Reason: Nausea/Vomiting Pantoprazole Sodium (Protonix Ec Tab) 40 mg PO 0600,1600 [facility] [place] Last Admin: 09/15/18 05:11 Dose: 40 mg Patiromer (Veltassa) 8.4 gm PO DAILY [facility] [place] Stop: 09/16/18 10:01 Last Admin: 09/14/18 11:03 Dose: 8.4 gm Polyethylene Glycol (Miralax) 17 gm PO BID [facility] [place] Last Admin: 09/14/18 17:09 Dose: 17 gm - Labs Labs: 09/15/18 05:02 09/15/18 05:02 PT 11.4 SECONDS (9.4-12.5) 09/15/18 05:02 INR 1.01 09/15/18 05:02 APTT 24.0 Seconds (26.9-38.3) L 09/15/18 05:02 - Constitutional Appears: Chronically Ill - Respiratory Exam Respiratory Exam: absent: Accessory Muscle Use, Respiratory Distress Additional comments: on BIPAP but speaking clearly within difficulties or dyspnea - Cardiovascular Exam Cardiovascular Exam: absent: Tachycardia - GI/Abdominal Exam GI & Abdominal Exam: Soft. absent: Distended, Tenderness - Extremities Exam Additional comments: LLE with eccymosis extending from gluteal fold to just below popliteal fossa compartments are soft pulses are palpable no pain or paresthesias report by pt - Neurological Exam Neurological Exam: Alert, Awake, Oriented x3 - Psychiatric Exam Psychiatric exam: Normal Affect, Normal Mood Assessment and Plan - Assessment and Plan (Free Text) Assessment: 73F in ICU for treatment of pulmonary embolism on Hep drip (held since yesterday) now w/ new onset LLE hematoma and associated drop in HgB Plan: cont to trend HgB maintain HgB at cardiac levels as per ICU, primary, cardiology other sources of bleeding evaluated and negative thus far cont to hold heparin drip LLE compartment is soft, most likely resolving hematoma from posterior thigh or gluteal bleed if pt continues to bleed or drop HgB, the next step in treatment algorithm would be Interventional Radiology for possible embolization ---considering the above, would recommend pt remain on CLD until certain no intervention is needed--- case discussed at length with Dr Cuco Soto, PGY4
--- NOTE | 2018-09-15 09:46 | PN ---
DATE: 09/13/[address] Nick Rowley. SUBJECTIVE: The patient is currently on high flow nasal O2. She denies any retrosternal chest pain. PHYSICAL EXAMINATION VITAL SIGNS: Blood pressure 156/65, heart rate 71, temperature 98.2. HEENT: Normocephalic. CHEST: Diffuse bilateral rhonchi. HEART: S1 and S2, regular. ABDOMEN: Soft. EXTREMITIES: 1+ pitting edema. DIAGNOSTIC DATA: EKG on 09/11/2018 revealed normal sinus rhythm at rate 76, nonspecific T-wave abnormality. Echocardiographic study on 09/09/2018 revealed normal left ventricular wall thickness, [id number] depressed ejection fraction with flattened ventricle, mildly dilated and severely hypokinetic right ventricle. Chest CT angio with PE protocol revealed pulmonary emboli within the distal right lower lobe branches and proximal right lower lobe segmental branches, small right-sided effusion and mild right basilar atelectasis, marked cardiomegaly. Today's hemoglobin and hematocrit 11.3 and 38.3, white count and platelet count are within normal limits. Today's SMA-7: Sodium 136, potassium 5.2, chloride 95, CO2 is 38, glucose 108, BUN 32, creatinine 0.9. ASSESSMENT 1. Pulmonary embolism. 2. Right-sided heart failure. 3. Systolic heart failure. 4. Severe chronic obstructive lung disease. 5. Hyperkalemia. RECOMMENDATIONS: Continue Diamox 250 mg p.o. twice a day, intravenous heparin therapeutic regimen for pulmonary embolism. Continue Lasix 40 mg intravenously once a day, not possible twice a day. Continue Nicoderm patch and Solu-Medrol at 20 mg intravenously every 12 hours. If the patient did receive Kayexalate 30 g p.o. today, if the patient continues to remain hyperkalemic, I would recommend discontinuation of Cozaar. Alessio Greer MD
[2018-09-15] MEDS: POLYETHYLENE GLYCOL 3350 17 GM/Dose PACKET PO SCH ×2 (09:59→18:23)
[2018-09-15] MEDS: VITS A AND D/WHITE PET/LANOLIN 113.4 APPLIC/113.4 G TUBE TP SCH (09:59)
[2018-09-15] MEDS: Nystatin 100,000 Units/gm Cream(15 gm) TOP SCH ×3 (10:01→18:24)
[2018-09-15] MEDS: Ammonium Lactate 12% Cream (140 g) TOP SCH (10:05)
--- NOTE | 2018-09-15 10:41 | CP.PCM.PN ---
<Ketan Shrestha - Last Filed: 09/15/18 10:37> Subjective - Date & Time of Evaluation Date of Evaluation: 09/15/18 Time of Evaluation: 09:05 - Subjective Subjective: Ketan Shrestha D.O. PGY-3, Internal Medicine Resident, Infectious Disease Progress Note 73 year old female with a PMH of COPD and tobacco abuse who presented to [facility] on 09/08/18 after she was found by her family members laying in her couch for about 3 days. Infectious disease consultation was requested for severe sepsis. Patient was seen and examined at bedside. Looking better everyday. Eating breakfast comfortably. States overall feeling better. Objective - Vital Signs/Intake and Output Vital Signs (last 24 hours): Temp Pulse Resp BP Pulse Ox 98.3 F 74 21 99/47 L 94 L 09/15/18 04:00 09/15/18 06:00 09/14/18 22:00 09/14/18 22:00 09/14/18 22:00 Intake and Output: 09/15/18 09/15/18 06:59 18:59 Intake Total 633 Output Total 900 Balance -267 - Medications Medications: Current Medications Acetaminophen (Tylenol 325mg Tab) 650 mg PO Q6 PRN PRN Reason: TEMP>=99.5F Last Admin: 09/14/18 17:04 Dose: 650 mg Acetaminophen (Tylenol 650 Mg Supp) 650 mg RC Q6H PRN PRN Reason: TEMP>=99.5F Acetazolamide (Diamox 250 Mg Tab) 250 mg PO BID [facility] Stop: 09/16/18 10:31 Last Admin: 09/15/18 09:58 Dose: 250 mg Albuterol/Ipratropium (Duoneb 3 Mg/0.5 Mg (3 Ml) Ud) 3 ml IH [id number] [facility] Last Admin: 09/15/18 08:07 Dose: 3 ml Allopurinol (Zyloprim) 100 mg PO DAILY [facility] Last Admin: 09/15/18 09:58 Dose: 100 mg Arformoterol Tartrate (Brovana) 15 mcg IH [id number] [facility] Budesonide (Pulmicort Respules) 0.5 mg IH [id number] [facility] Dextrose (Dextrose 50% Inj) 0 ml IV STAT PRN; Protocol PRN Reason: Hypoglycemia Protocol Ergocalciferol (Drisdol 50,000 Intl Units Cap) 1 cap PO Q7D [facility] Last Admin: 09/10/18 18:32 Dose: 1 cap Dextrose (Dextrose 5% In Water 1000 Ml) 1,000 mls @ 0 mls/hr IV .Q0M PRN; Protocol PRN Reason: Hypoglycemia Protocol Insulin Human Lispro (Humalog High) 0 units SC ACHS [facility]; Protocol Last Admin: 09/15/18 08:23 Dose: Not Given Lactic Acid (Lac-Hydrin 12% Cream (140 G)) 0 ea TOP DAILY [facility] Last Admin: 09/15/18 10:05 Dose: 1 applic Nicotine (Nicoderm Cq) 1 patch TD DAILY [facility] Last Admin: 09/15/18 09:59 Dose: 1 patch Nystatin (Nystop Topical Powder) 0 gm TOP Q6 [facility] Last Admin: 09/15/18 05:11 Dose: 1 pdr Nystatin (Mycostatin Cream) 0 ea TOP TID [facility] Last Admin: 09/15/18 10:01 Dose: 1 unit Ondansetron HCl (Zofran Inj) 4 mg IVP Q4H PRN PRN Reason: Nausea/Vomiting Pantoprazole Sodium (Protonix Ec Tab) 40 mg PO 0600,1600 [facility] Last Admin: 09/15/18 05:11 Dose: 40 mg Patiromer (Veltassa) 8.4 gm PO DAILY [facility] Stop: 09/16/18 10:01 Last Admin: 09/14/18 11:03 Dose: 8.4 gm Polyethylene Glycol (Miralax) 17 gm PO BID [facility] Last Admin: 09/15/18 09:59 Dose: 17 gm Prednisone (Prednisone Tab) 40 mg PO DAILY [facility] Stop: 09/20/18 10:01 - Labs Labs: 09/15/18 05:02 09/15/18 05:02 PT 11.4 SECONDS (9.4-12.5) 09/15/18 05:02 INR 1.01 09/15/18 05:02 APTT 24.0 Seconds (26.9-38.3) L 09/15/18 05:02 - Constitutional Appears: Chronically Ill, obese elderly female - Head Exam Head Exam: ATRAUMATIC, NORMOCEPHALIC - Eye Exam Eye Exam: EOMI. absent: Scleral icterus - ENT Exam ENT Exam: Mucous Membranes Moist - Neck Exam Additional comments: obese, soft - Respiratory Exam Respiratory Exam: Decreased breath sounds - Cardiovascular Exam Cardiovascular Exam: RRR, +S1, +S2 - GI/Abdominal Exam GI & Abdominal Exam: Soft, erythematous skin changes improving - Extremities Exam Additional comments: chronic stasis changes - Neurological Exam Additional comments: Awake, Alert, Orientedx3 - Skin Skin Exam: Dry, Warm Assessment and Plan - Assessment and Plan (Free Text) Assessment: 73 year old female with a PMH of COPD and tobacco abuse who presented to [facility] on 09/08/18 after she was found by her family members laying in her couch for about 3 days. Infectious disease consultation was requested for severe sepsis. Plan: Severe sepsis Acute respiratory failure requiring intubation, now exubated Pulmonary embolism Right and left ventricular dysfunction CAP - finished treatment Pleural effusions Continues to improve daily Afebile No leukocytosis Cultures have been negative Monitoring off abx At risk for nosocomial infections We will follow with you Patient was seen and examined and case to be discussed with attending physician. Thank you for the pleasure of participating in the care of this interesting patient. <Agapito Rojo - Last Filed: 09/15/18 14:48> Objective - Vital Signs/Intake and Output Vital Signs (last 24 hours): Temp Pulse Resp BP Pulse Ox 97.9 F 83 23 107/47 L 88 L 09/15/18 12:00 09/15/18 11:15 09/15/18 11:15 09/15/18 11:15 09/15/18 11:15 Intake and Output: 09/15/18 09/15/18 06:59 18:59 Intake Total 633 Output Total 900 Balance -267 - Medications Medications: Current Medications Acetaminophen (Tylenol 325mg Tab) 650 mg PO Q6 PRN PRN Reason: TEMP>=99.5F Last Admin: 09/14/18 17:04 Dose: 650 mg Acetaminophen (Tylenol 650 Mg Supp) 650 mg RC Q6H PRN PRN Reason: TEMP>=99.5F Acetazolamide (Diamox 250 Mg Tab) 250 mg PO BID [facility] Stop: 09/16/18 10:31 Last Admin: 09/15/18 09:58 Dose: 250 mg Albuterol/Ipratropium (Duoneb 3 Mg/0.5 Mg (3 Ml) Ud) 3 ml IH [id number] [facility] Last Admin: 09/15/18 14:29 Dose: 3 ml Allopurinol (Zyloprim) 100 mg PO DAILY [facility] Last Admin: 09/15/18 09:58 Dose: 100 mg Arformoterol Tartrate (Brovana) 15 mcg IH [id number] [facility] Budesonide (Pulmicort Respules) 0.5 mg IH [id number] [facility] Dextrose (Dextrose 50% Inj) 0 ml IV STAT PRN; Protocol PRN Reason: Hypoglycemia Protocol Ergocalciferol (Drisdol 50,000 Intl Units Cap) 1 cap PO Q7D [facility] Last Admin: 09/10/18 18:32 Dose: 1 cap Dextrose (Dextrose 5% In Water 1000 Ml) 1,000 mls @ 0 mls/hr IV .Q0M PRN; Protocol PRN Reason: Hypoglycemia Protocol Insulin Human Lispro (Humalog High) 0 units SC ACHS [facility]; Protocol Last Admin: 09/15/18 11:51 Dose: Not Given Lactic Acid (Lac-Hydrin 12% Cream (140 G)) 0 ea TOP DAILY [facility] Last Admin: 09/15/18 10:05 Dose: 1 applic Nicotine (Nicoderm Cq) 1 patch TD DAILY [facility] Last Admin: 09/15/18 09:59 Dose: 1 patch Nystatin (Nystop Topical Powder) 0 gm TOP Q6 [facility] Last Admin: 09/15/18 12:30 Dose: Not Given Nystatin (Mycostatin Cream) 0 ea TOP TID [facility] Last Admin: 09/15/18 14:27 Dose: 1 unit Ondansetron HCl (Zofran Inj) 4 mg IVP Q4H PRN PRN Reason: Nausea/Vomiting Pantoprazole Sodium (Protonix Ec Tab) 40 mg PO 0600,1600 [facility] Last Admin: 09/15/18 05:11 Dose: 40 mg Patiromer (Veltassa) 8.4 gm PO DAILY [facility] Stop: 09/16/18 10:01 Last Admin: 09/15/18 10:40 Dose: 8.4 gm Polyethylene Glycol (Miralax) 17 gm PO BID [facility] Last Admin: 09/15/18 09:59 Dose: 17 gm Prednisone (Prednisone Tab) 40 mg PO DAILY [facility] Stop: 09/20/18 10:01 - Labs Labs: 09/15/18 05:02 09/15/18 05:02 PT 11.4 SECONDS (9.4-12.5) 09/15/18 05:02 INR 1.01 09/15/18 05:02 APTT 24.0 Seconds (26.9-38.3) L 09/15/18 05:02 Attending/Attestation - Attestation I have personally seen and examined this patient.: Yes I have fully participated in the care of the patient.: Yes I have reviewed all pertinent clinical information, including history, physical exam and plan: Yes
--- NOTE | 2018-09-15 10:54 | CP.CCUPN ---
<Christopher Crockett - Last Filed: 09/15/18 11:23> CCU Subjective - Physician Review Subjective (Free Text): Christopher Crockett DO. Critical Care Progress note Patient seen and examined at bedside. She is awake, oriented in NAD. She has been on high flow, O2 sat 92% . She is tolerating diet, Denies CP, SOB, palpitations, leg pain. CCU Objective - Vital Signs / Intake & Output Intake and Output (Last 8hrs): Intake & Output 09/14/18 09/15/18 09/15/18 22:59 06:59 14:59 Intake Total 1152 633 Output Total 950 900 Balance 202 -267 Intake: IV 202 50 Right Internal Jugular 50 50 heparin 152 Oral 950 Blood Product 583 Output: Urine 950 900 Urethral (Alonzo) 950 900 Stool 0 - Physical Exam Head: Positive for: Atraumatic, Normocephalic Conjunctiva: Positive for: Normal, Other Mouth: Positive for: Dry Nose (Internal): Positive for: Normal Inspection Neck: Positive for: Trachea Midline. Negative for: JVD, Bruit Respiratory/Chest: Positive for: Good Air Exchange, Decreased Breath Sounds. Negative for: Respiratory Distress Cardiovascular: Positive for: Regular Rate and Rhythm, Normal S1, S2. Negative for: Rub, Gallop Abdomen: Positive for: Normal Bowel Sounds. Negative for: Tenderness, Distention Breast/Axillary: Positive for: Erythema (Erythematous bilateral candidal rash to breast) Lower Extremity: Positive for: Edema (3+ pedal edema bilateral), Other (left posterior knee brusing noted from undrlying hematoma) Neurological: Positive for: GCS=15, Speech Normal Skin: Positive for: Rashes, Erythematous (bilateral candidal rash to groin, hips, abdomen) Psychiatric: Positive for: Oriented x 3, Normal Insight, Normal Concentration - Medications Active Medications: Active Medications Generic Name Dose Route Start Last Admin Trade Name Freq PRN Reason Stop Dose Admin Acetaminophen 650 mg 09/08/18 14:22 09/14/18 17:04 Tylenol 325mg Tab PO 650 mg Q6 PRN Administration TEMP>=99.5F Acetaminophen 650 mg 09/08/18 14:22 Tylenol 650 Mg Supp RC Q6H PRN TEMP>=99.5F Acetazolamide 250 mg 09/14/18 10:30 09/15/18 09:58 Diamox 250 Mg Tab PO 09/16/18 10:31 250 mg BID DEANGELO Administration Albuterol/Ipratropium 3 ml 09/13/18 14:00 09/15/18 08:07 Duoneb 3 Mg/0.5 Mg (3 Ml) Ud IH 3 ml [id number] DEANGELO Administration Allopurinol 100 mg 09/09/18 10:00 09/15/18 09:58 Zyloprim PO 100 mg DAILY DEANGELO Administration Arformoterol Tartrate 15 mcg 09/15/18 20:00 Brovana IH [id number] DEANGELO Budesonide 0.5 mg 09/15/18 20:00 Pulmicort Respules IH [id number] DEANGELO Dextrose 0 ml 09/08/18 22:59 Dextrose 50% Inj IV STAT PRN Hypoglycemia Protocol Protocol Ergocalciferol 1 cap 09/10/18 14:30 09/10/18 18:32 Drisdol 50,000 Intl Units Cap PO 1 cap Q7D DEANGELO Administration Dextrose 1,000 mls @ 0 mls/hr 09/08/18 22:59 Dextrose 5% In Water 1000 Ml IV .Q0M PRN Hypoglycemia Protocol Protocol Per Protocol Insulin Human Lispro 0 units 09/11/18 22:00 09/15/18 08:23 Humalog High SC Not Given ACHS DEANGELO Protocol Lactic Acid 0 ea 09/10/18 10:00 09/15/18 10:05 Lac-Hydrin 12% Cream (140 G) TOP 1 applic DAILY DEANGELO Administration Nicotine 1 patch 09/09/18 10:00 09/15/18 09:59 Nicoderm Cq TD 1 patch DAILY DEANGELO Administration Nystatin 0 gm 09/08/18 18:00 09/15/18 05:11 Nystop Topical Powder TOP 1 pdr Q6 DEANGELO Administration Nystatin 0 ea 09/08/18 23:00 09/15/18 10:01 Mycostatin Cream TOP 1 unit TID DEANGELO Administration Ondansetron HCl 4 mg 09/08/18 14:22 Zofran Inj IVP Q4H PRN Nausea/Vomiting Pantoprazole Sodium 40 mg 09/11/18 06:00 09/15/18 05:11 Protonix Ec Tab PO 40 mg 0600,1600 DEANGELO Administration Patiromer 8.4 gm 09/14/18 10:00 09/15/18 10:40 Veltassa PO 09/16/18 10:01 8.4 gm DAILY DEANGELO Administration Polyethylene Glycol 17 gm 09/11/18 10:00 09/15/18 09:59 Miralax PO 17 gm BID DEANGELO Administration Prednisone 40 mg 09/16/18 10:00 Prednisone Tab PO 09/20/18 10:01 DAILY DEANGELO - Patient Studies Lab Studies: Lab Studies 09/15/18 09/15/18 09/15/18 Range/Units 05:02 05:02 05:02 WBC 11.5 H (4.5-11.0) 10^3/uL RBC 2.92 L (3.5-6.1) 10^6/uL Hgb 8.5 L (12.0-16.0) g/dL Hct 29.0 L (36.0-48.0) % MCV 99.3 (80.0-105.0) fl MCH 29.1 (25.0-35.0) pg MCHC 29.3 L (31.0-37.0) g/dl RDW 14.4 (11.5-14.5) % Plt Count 175 (120.0-450.0) 10^3/uL MPV 10.0 (7.0-11.0) fl Neut % (Auto) 92.5 H (50.0-68.0) % Lymph % (Auto) 2.8 L (22.0-35.0) % Haines % (Auto) 4.5 (1.0-6.0) % Eos % (Auto) 0.1 L (1.5-5.0) % Baso % (Auto) 0.1 (0.0-3.0) % Lymph # (Auto) 0.3 L (1.2-3.4) Haines # (Auto) 0.5 (0.1-0.6) Eos # (Auto) 0.0 (0.0-0.7) Baso # (Auto) 0.01 (0.0-2.0) K/mm3 Absolute Neuts (auto) 10.67 H (1.4-6.5) PT 11.4 (9.4-12.5) SECONDS INR 1.01 APTT 24.0 L (26.9-38.3) Seconds Sodium 137 (132-148) mmol/L Potassium 4.5 (3.6-5.0) mmol/L Chloride 95 L (98-107) mmol/L Carbon Dioxide 37 H (21-33) mmol/L Anion Gap 9 L (10-20) BUN 46 H (7-21) mg/dL Creatinine 1.1 (0.7-1.2) mg/dl Est GFR ( Amer) 59 Est GFR (Non-Af Amer) 49 POC Glucose (mg/dL) (65-110) mg/dL Random Glucose 126 H (70-110) mg/dL Calcium 8.4 (8.4-10.5) mg/dL Phosphorus 5.5 H (2.5-4.5) mg/dL Magnesium 2.2 (1.7-2.2) mg/dL Total Bilirubin 0.7 (0.2-1.3) mg/dL Direct Bilirubin 0.4 (0.0-0.4) mg/dL AST 20 (14-36) U/L ALT 21 (7-56) U/L Alkaline Phosphatase 47 (38-126) U/L Total Protein 5.3 L (5.8-8.3) g/dL Albumin 2.5 L (3.0-4.8) g/dL Globulin 2.8 gm/dL Albumin/Globulin Ratio 0.9 L (1.1-1.8) Blood Type Antibody Screen Crossmatch BBK History Checked 09/15/18 09/14/18 09/14/18 Range/Units 02:07 21:49 21:30 WBC (4.5-11.0) 10^3/uL RBC (3.5-6.1) 10^6/uL Hgb 8.8 L 9.0 L (12.0-16.0) g/dL Hct 29.4 L 30.3 L (36.0-48.0) % MCV (80.0-105.0) fl MCH (25.0-35.0) pg MCHC (31.0-37.0) g/dl RDW (11.5-14.5) % Plt Count (120.0-450.0) 10^3/uL MPV (7.0-11.0) fl Neut % (Auto) (50.0-68.0) % Lymph % (Auto) (22.0-35.0) % Haines % (Auto) (1.0-6.0) % Eos % (Auto) (1.5-5.0) % Baso % (Auto) (0.0-3.0) % Lymph # (Auto) (1.2-3.4) Haines # (Auto) (0.1-0.6) Eos # (Auto) (0.0-0.7) Baso # (Auto) (0.0-2.0) K/mm3 Absolute Neuts (auto) (1.4-6.5) PT (9.4-12.5) SECONDS INR APTT (26.9-38.3) Seconds Sodium (132-148) mmol/L Potassium (3.6-5.0) mmol/L Chloride (98-107) mmol/L Carbon Dioxide (21-33) mmol/L Anion Gap (10-20) BUN (7-21) mg/dL Creatinine (0.7-1.2) mg/dl Est GFR ( Amer) Est GFR (Non-Af Amer) POC Glucose (mg/dL) 169 H (65-110) mg/dL Random Glucose (70-110) mg/dL Calcium (8.4-10.5) mg/dL Phosphorus (2.5-4.5) mg/dL Magnesium (1.7-2.2) mg/dL Total Bilirubin (0.2-1.3) mg/dL Direct Bilirubin (0.0-0.4) mg/dL AST (14-36) U/L ALT (7-56) U/L Alkaline Phosphatase (38-126) U/L Total Protein (5.8-8.3) g/dL Albumin (3.0-4.8) g/dL Globulin gm/dL Albumin/Globulin Ratio (1.1-1.8) Blood Type Antibody Screen Crossmatch BBK History Checked 09/14/18 09/14/18 09/14/18 Range/Units 17:30 17:30 16:55 WBC (4.5-11.0) 10^3/uL RBC (3.5-6.1) 10^6/uL Hgb 9.7 L (12.0-16.0) g/dL Hct 32.9 L (36.0-48.0) % MCV (80.0-105.0) fl MCH (25.0-35.0) pg MCHC (31.0-37.0) g/dl RDW (11.5-14.5) % Plt Count (120.0-450.0) 10^3/uL MPV (7.0-11.0) fl Neut % (Auto) (50.0-68.0) % Lymph % (Auto) (22.0-35.0) % Haines % (Auto) (1.0-6.0) % Eos % (Auto) (1.5-5.0) % Baso % (Auto) (0.0-3.0) % Lymph # (Auto) (1.2-3.4) Haines # (Auto) (0.1-0.6) Eos # (Auto) (0.0-0.7) Baso # (Auto) (0.0-2.0) K/mm3 Absolute Neuts (auto) (1.4-6.5) PT 11.8 (9.4-12.5) SECONDS INR 1.06 APTT 50.9 H (26.9-38.3) Seconds Sodium (132-148) mmol/L Potassium (3.6-5.0) mmol/L Chloride (98-107) mmol/L Carbon Dioxide (21-33) mmol/L Anion Gap (10-20) BUN (7-21) mg/dL Creatinine (0.7-1.2) mg/dl Est GFR ( Amer) Est GFR (Non-Af Amer) POC Glucose (mg/dL) 148 H (65-110) mg/dL Random Glucose (70-110) mg/dL Calcium (8.4-10.5) mg/dL Phosphorus (2.5-4.5) mg/dL Magnesium (1.7-2.2) mg/dL Total Bilirubin (0.2-1.3) mg/dL Direct Bilirubin (0.0-0.4) mg/dL AST (14-36) U/L ALT (7-56) U/L Alkaline Phosphatase (38-126) U/L Total Protein (5.8-8.3) g/dL Albumin (3.0-4.8) g/dL Globulin gm/dL Albumin/Globulin Ratio (1.1-1.8) Blood Type Antibody Screen Crossmatch BBK History Checked 09/14/18 09/14/18 09/12/18 Range/Units 11:50 07:35 12:15 WBC (4.5-11.0) 10^3/uL RBC (3.5-6.1) 10^6/uL Hgb (12.0-16.0) g/dL Hct (36.0-48.0) % MCV (80.0-105.0) fl MCH (25.0-35.0) pg MCHC (31.0-37.0) g/dl RDW (11.5-14.5) % Plt Count (120.0-450.0) 10^3/uL MPV (7.0-11.0) fl Neut % (Auto) (50.0-68.0) % Lymph % (Auto) (22.0-35.0) % Haines % (Auto) (1.0-6.0) % Eos % (Auto) (1.5-5.0) % Baso % (Auto) (0.0-3.0) % Lymph # (Auto) (1.2-3.4) Haines # (Auto) (0.1-0.6) Eos # (Auto) (0.0-0.7) Baso # (Auto) (0.0-2.0) K/mm3 Absolute Neuts (auto) (1.4-6.5) PT (9.4-12.5) SECONDS INR APTT (26.9-38.3) Seconds Sodium (132-148) mmol/L Potassium (3.6-5.0) mmol/L Chloride (98-107) mmol/L Carbon Dioxide (21-33) mmol/L Anion Gap (10-20) BUN (7-21) mg/dL Creatinine (0.7-1.2) mg/dl Est GFR ( Amer) Est GFR (Non-Af Amer) POC Glucose (mg/dL) 108 87 (65-110) mg/dL Random Glucose (70-110) mg/dL Calcium (8.4-10.5) mg/dL Phosphorus (2.5-4.5) mg/dL Magnesium (1.7-2.2) mg/dL Total Bilirubin (0.2-1.3) mg/dL Direct Bilirubin (0.0-0.4) mg/dL AST (14-36) U/L ALT (7-56) U/L Alkaline Phosphatase (38-126) U/L Total Protein (5.8-8.3) g/dL Albumin (3.0-4.8) g/dL Globulin gm/dL Albumin/Globulin Ratio (1.1-1.8) Blood Type O POSITIVE Antibody Screen Negative Crossmatch See Detail BBK History Checked No verified bt Laboratory Results - last 24 hr 09/12/18 09/14/18 09/14/18 12:15 07:35 11:50 WBC RBC Hgb Hct MCV MCH MCHC RDW Plt Count MPV Neut % (Auto) Lymph % (Auto) Haines % (Auto) Eos % (Auto) Baso % (Auto) Lymph # (Auto) Haines # (Auto) Eos # (Auto) Baso # (Auto) Absolute Neuts (auto) PT INR APTT Sodium Potassium Chloride Carbon Dioxide Anion Gap BUN Creatinine Est GFR ( Amer) Est GFR (Non-Af Amer) POC Glucose (mg/dL) 87 108 Random Glucose Calcium Phosphorus Magnesium Total Bilirubin Direct Bilirubin AST ALT Alkaline Phosphatase Total Protein Albumin Globulin Albumin/Globulin Ratio Blood Type O POSITIVE Antibody Screen Negative Crossmatch See Detail BBK History Checked No verified bt 09/14/18 09/14/18 09/14/18 16:55 17:30 17:30 WBC RBC Hgb 9.7 L Hct 32.9 L MCV MCH MCHC RDW Plt Count MPV Neut % (Auto) Lymph % (Auto) Haines % (Auto) Eos % (Auto) Baso % (Auto) Lymph # (Auto) Haines # (Auto) Eos # (Auto) Baso # (Auto) Absolute Neuts (auto) PT 11.8 INR 1.06 APTT 50.9 H Sodium Potassium Chloride Carbon Dioxide Anion Gap BUN Creatinine Est GFR ( Amer) Est GFR (Non-Af Amer) POC Glucose (mg/dL) 148 H Random Glucose Calcium Phosphorus Magnesium Total Bilirubin Direct Bilirubin AST ALT Alkaline Phosphatase Total Protein Albumin Globulin Albumin/Globulin Ratio Blood Type Antibody Screen Crossmatch BBK History Checked 09/14/18 09/14/18 09/15/18 21:30 21:49 02:07 WBC RBC Hgb 9.0 L 8.8 L Hct 30.3 L 29.4 L MCV MCH MCHC RDW Plt Count MPV Neut % (Auto) Lymph % (Auto) Haines % (Auto) Eos % (Auto) Baso % (Auto) Lymph # (Auto) Haines # (Auto) Eos # (Auto) Baso # (Auto) Absolute Neuts (auto) PT INR APTT Sodium Potassium Chloride Carbon Dioxide Anion Gap BUN Creatinine Est GFR ( Amer) Est GFR (Non-Af Amer) POC Glucose (mg/dL) 169 H Random Glucose Calcium Phosphorus Magnesium Total Bilirubin Direct Bilirubin AST ALT Alkaline Phosphatase Total Protein Albumin Globulin Albumin/Globulin Ratio Blood Type Antibody Screen Crossmatch BBK History Checked 09/15/18 09/15/18 09/15/18 05:02 05:02 05:02 WBC 11.5 H RBC 2.92 L Hgb 8.5 L Hct 29.0 L MCV 99.3 MCH 29.1 MCHC 29.3 L RDW 14.4 Plt Count 175 MPV 10.0 Neut % (Auto) 92.5 H Lymph % (Auto) 2.8 L Haines % (Auto) 4.5 Eos % (Auto) 0.1 L Baso % (Auto) 0.1 Lymph # (Auto) 0.3 L Haines # (Auto) 0.5 Eos # (Auto) 0.0 Baso # (Auto) 0.01 Absolute Neuts (auto) 10.67 H PT 11.4 INR 1.01 APTT 24.0 L Sodium 137 Potassium 4.5 Chloride 95 L Carbon Dioxide 37 H Anion Gap 9 L BUN 46 H Creatinine 1.1 Est GFR ( Amer) 59 Est GFR (Non-Af Amer) 49 POC Glucose (mg/dL) Random Glucose 126 H Calcium 8.4 Phosphorus 5.5 H Magnesium 2.2 Total Bilirubin 0.7 Direct Bilirubin 0.4 AST 20 ALT 21 Alkaline Phosphatase 47 Total Protein 5.3 L Albumin 2.5 L Globulin 2.8 Albumin/Globulin Ratio 0.9 L Blood Type Antibody Screen Crossmatch BBK History Checked Fingerstick Blood Sugar Results: 111 Critical Care Progress Note - Nutrition Nutrition: Nutrition Category Date Time Status Heart Healthy Diet [DIET] Diets 09/12/18 Lunch Active Assessment/Plan - Assessment and Plan (Free Text) Assessment: 73 y/o female admitted to ICU for AMS and respiratory distress found to have PE on right lung with possible PNA and biventricular dysfunction in the setting of CHF exacerbation. She s doing well on high flow wth O2 sat 92% Plan: Neuro: -AAO x3 in NAD -maintain normthermia Cardio: -Echo: moderate to severe LV dysfunction. Right ventricular hypokinesia and strain in the setting of PE -continue dobutamine 2.5 mcg/kg/min -continue lasix 40 mg daily -BNP trending down 208[address] to 1880 -trops trending down 0.13 to 0.08 likely due to RV strain in the setting of PE -maintain MAP> 65 -cardiology following Pulm: -resolved acute respiratory failure, currently on high flow -CT chest: subsegmental right lung PE with small pleural effusion -LE doppler negative for DVT -CT right LE: large posterior lateral hematoma [id number] -d/c heparin drip -PTT 24 -CXR: vascular congestion. possible PNA. Repeat CXR shows improvement -d/c solu-medrol -started prednisone 40 mg PO daily x5 days -startred pulmicort q12 -continue xopenex q6h deangelo Heme: -H/H dropped from 17/55.5 on (09/08) 8.5/29 today (09/15) patient asymptomatic -likely due to hematoma in LLE -receiving 1unit of PRBC today -received 2 units of FFP -heparin stopped -ID consulted for possible embolization. consider IVC filter -surgery following ID: -possible cellulitis on abdominal wall, hip -continue topical nystatin -CPK normal -UCx, MRSA, BCx, sputum Cx negative -legionella negative -f/u strep Ag -low procal -continue meropenem, doxycycline PO -afebrile, no leukocytosis -ID following /Renal: -CKD with proteinurea -continue acetazolamide 250 po bid for 3 days per nephro for high bicarb, 37 -UOP 2725 -maintain euvolemia, euglycemia -nephrology following Prophylaxis: Protonix bid SCD Clear liquid diet Continue ICU management Case reviewed and discussed with attending Dr Gonzales <Murphy Gonzales - Last Filed: 09/15/18 13:18> CCU Objective - Vital Signs / Intake & Output Vital Signs (Last 4 hours): Vital Signs Temp Pulse Resp BP Pulse Ox 09/15/18 12:00 97.9 F 09/15/18 11:15 83 23 107/47 L 88 L 09/15/18 11:00 77 20 120/50 L 100 09/15/18 10:46 77 21 118/54 L 100 09/15/18 10:30 74 21 123/59 L 100 09/15/18 10:15 78 21 118/53 L 100 09/15/18 10:00 76 20 115/55 L 97 09/15/18 09:45 79 14 105/39 L 96 Intake and Output (Last 8hrs): Intake & Output 09/14/18 09/15/18 09/15/18 22:59 06:59 14:59 Intake Total 1152 633 Output Total 950 900 Balance 202 -267 Intake: IV 202 50 Right Internal Jugular 50 50 heparin 152 Oral 950 Blood Product 583 Output: Urine 950 900 Urethral (Alonzo) 950 900 Stool 0 - Medications Active Medications: Active Medications Generic Name Dose Route Start Last Admin Trade Name Freq PRN Reason Stop Dose Admin Acetaminophen 650 mg 09/08/18 14:22 09/14/18 17:04 Tylenol 325mg Tab PO 650 mg Q6 PRN Administration TEMP>=99.5F Acetaminophen 650 mg 09/08/18 14:22 Tylenol 650 Mg Supp RC Q6H PRN TEMP>=99.5F Acetazolamide 250 mg 09/14/18 10:30 09/15/18 09:58 Diamox 250 Mg Tab PO 09/16/18 10:31 250 mg BID DEANGELO Administration Albuterol/Ipratropium 3 ml 09/13/18 14:00 09/15/18 08:07 Duoneb 3 Mg/0.5 Mg (3 Ml) Ud IH 3 ml [id number] DEANGELO Administration Allopurinol 100 mg 09/09/18 10:00 09/15/18 09:58 Zyloprim PO 100 mg DAILY DEANGELO Administration Arformoterol Tartrate 15 mcg 09/15/18 20:00 Brovana IH [id number] DEANGELO Budesonide 0.5 mg 09/15/18 20:00 Pulmicort Respules IH [id number] DEANGELO Dextrose 0 ml 09/08/18 22:59 Dextrose 50% Inj IV STAT PRN Hypoglycemia Protocol Protocol Ergocalciferol 1 cap 09/10/18 14:30 09/10/18 18:32 Drisdol 50,000 Intl Units Cap PO 1 cap Q7D DEANGELO Administration Dextrose 1,000 mls @ 0 mls/hr 09/08/18 22:59 Dextrose 5% In Water 1000 Ml IV .Q0M PRN Hypoglycemia Protocol Protocol Per Protocol Insulin Human Lispro 0 units 09/11/18 22:00 09/15/18 11:51 Humalog High SC Not Given ACHS DEANGELO Protocol Lactic Acid 0 ea 09/10/18 10:00 09/15/18 10:05 Lac-Hydrin 12% Cream (140 G) TOP 1 applic DAILY DEANGELO Administration Nicotine 1 patch 09/09/18 10:00 09/15/18 09:59 Nicoderm Cq TD 1 patch DAILY DEANGELO Administration Nystatin 0 gm 09/08/18 18:00 09/15/18 12:30 Nystop Topical Powder TOP Not Given Q6 DEANGELO Nystatin 0 ea 09/08/18 23:00 09/15/18 10:01 Mycostatin Cream TOP 1 unit TID DEANGELO Administration Ondansetron HCl 4 mg 09/08/18 14:22 Zofran Inj IVP Q4H PRN Nausea/Vomiting Pantoprazole Sodium 40 mg 09/11/18 06:00 09/15/18 05:11 Protonix Ec Tab PO 40 mg 0600,1600 DEANGELO Administration Patiromer 8.4 gm 09/14/18 10:00 09/15/18 10:40 Veltassa PO 09/16/18 10:01 8.4 gm DAILY DEANGELO Administration Polyethylene Glycol 17 gm 09/11/18 10:00 09/15/18 09:59 Miralax PO 17 gm BID DEANGELO Administration Prednisone 40 mg 09/16/18 10:00 Prednisone Tab PO 09/20/18 10:01 DAILY DEANGELO - Patient Studies Lab Studies: Lab Studies 09/15/18 09/15/18 09/15/18 Range/Units 12:30 11:18 07:29 WBC (4.5-11.0) 10^3/uL RBC (3.5-6.1) 10^6/uL Hgb (12.0-16.0) g/dL Hct (36.0-48.0) % MCV (80.0-105.0) fl MCH (25.0-35.0) pg MCHC (31.0-37.0) g/dl RDW (11.5-14.5) % Plt Count (120.0-450.0) 10^3/uL MPV (7.0-11.0) fl Neut % (Auto) (50.0-68.0) % Lymph % (Auto) (22.0-35.0) % Haines % (Auto) (1.0-6.0) % Eos % (Auto) (1.5-5.0) % Baso % (Auto) (0.0-3.0) % Lymph # (Auto) (1.2-3.4) Haines # (Auto) (0.1-0.6) Eos # (Auto) (0.0-0.7) Baso # (Auto) (0.0-2.0) K/mm3 Absolute Neuts (auto) (1.4-6.5) PT (9.4-12.5) SECONDS INR APTT (26.9-38.3) Seconds Sodium (132-148) mmol/L Potassium (3.6-5.0) mmol/L Chloride (98-107) mmol/L Carbon Dioxide (21-33) mmol/L Anion Gap (10-20) BUN (7-21) mg/dL Creatinine (0.7-1.2) mg/dl Est GFR ( Amer) Est GFR (Non-Af Amer) POC Glucose (mg/dL) 153 H 111 H (65-110) mg/dL Random Glucose (70-110) mg/dL Calcium (8.4-10.5) mg/dL Phosphorus (2.5-4.5) mg/dL Magnesium (1.7-2.2) mg/dL Total Bilirubin (0.2-1.3) mg/dL Direct Bilirubin (0.0-0.4) mg/dL AST (14-36) U/L ALT (7-56) U/L Alkaline Phosphatase (38-126) U/L Total Protein (5.8-8.3) g/dL Albumin (3.0-4.8) g/dL Globulin gm/dL Albumin/Globulin Ratio (1.1-1.8) Stool Occult Blood Negative (NEGATIVE) Blood Type Antibody Screen Crossmatch BBK History Checked 09/15/18 09/15/18 09/15/18 Range/Units 05:02 05:02 05:02 WBC 11.5 H (4.5-11.0) 10^3/uL RBC 2.92 L (3.5-6.1) 10^6/uL Hgb 8.5 L (12.0-16.0) g/dL Hct 29.0 L (36.0-48.0) % MCV 99.3 (80.0-105.0) fl MCH 29.1 (25.0-35.0) pg MCHC 29.3 L (31.0-37.0) g/dl RDW 14.4 (11.5-14.5) % Plt Count 175 (120.0-450.0) 10^3/uL MPV 10.0 (7.0-11.0) fl Neut % (Auto) 92.5 H (50.0-68.0) % Lymph % (Auto) 2.8 L (22.0-35.0) % Haines % (Auto) 4.5 (1.0-6.0) % Eos % (Auto) 0.1 L (1.5-5.0) % Baso % (Auto) 0.1 (0.0-3.0) % Lymph # (Auto) 0.3 L (1.2-3.4) Haines # (Auto) 0.5 (0.1-0.6) Eos # (Auto) 0.0 (0.0-0.7) Baso # (Auto) 0.01 (0.0-2.0) K/mm3 Absolute Neuts (auto) 10.67 H (1.4-6.5) PT 11.4 (9.4-12.5) SECONDS INR 1.01 APTT 24.0 L (26.9-38.3) Seconds Sodium 137 (132-148) mmol/L Potassium 4.5 (3.6-5.0) mmol/L Chloride 95 L (98-107) mmol/L Carbon Dioxide 37 H (21-33) mmol/L Anion Gap 9 L (10-20) BUN 46 H (7-21) mg/dL Creatinine 1.1 (0.7-1.2) mg/dl Est GFR ( Amer) 59 Est GFR (Non-Af Amer) 49 POC Glucose (mg/dL) (65-110) mg/dL Random Glucose 126 H (70-110) mg/dL Calcium 8.4 (8.4-10.5) mg/dL Phosphorus 5.5 H (2.5-4.5) mg/dL Magnesium 2.2 (1.7-2.2) mg/dL Total Bilirubin 0.7 (0.2-1.3) mg/dL Direct Bilirubin 0.4 (0.0-0.4) mg/dL AST 20 (14-36) U/L ALT 21 (7-56) U/L Alkaline Phosphatase 47 (38-126) U/L Total Protein 5.3 L (5.8-8.3) g/dL Albumin 2.5 L (3.0-4.8) g/dL Globulin 2.8 gm/dL Albumin/Globulin Ratio 0.9 L (1.1-1.8) Stool Occult Blood (NEGATIVE) Blood Type Antibody Screen Crossmatch BBK History Checked 09/15/18 09/14/18 09/14/18 Range/Units 02:07 21:49 21:30 WBC (4.5-11.0) 10^3/uL RBC (3.5-6.1) 10^6/uL Hgb 8.8 L 9.0 L (12.0-16.0) g/dL Hct 29.4 L 30.3 L (36.0-48.0) % MCV (80.0-105.0) fl MCH (25.0-35.0) pg MCHC (31.0-37.0) g/dl RDW (11.5-14.5) % Plt Count (120.0-450.0) 10^3/uL MPV (7.0-11.0) fl Neut % (Auto) (50.0-68.0) % Lymph % (Auto) (22.0-35.0) % Haines % (Auto) (1.0-6.0) % Eos % (Auto) (1.5-5.0) % Baso % (Auto) (0.0-3.0) % Lymph # (Auto) (1.2-3.4) Haines # (Auto) (0.1-0.6) Eos # (Auto) (0.0-0.7) Baso # (Auto) (0.0-2.0) K/mm3 Absolute Neuts (auto) (1.4-6.5) PT (9.4-12.5) SECONDS INR APTT (26.9-38.3) Seconds Sodium (132-148) mmol/L Potassium (3.6-5.0) mmol/L Chloride (98-107) mmol/L Carbon Dioxide (21-33) mmol/L Anion Gap (10-20) BUN (7-21) mg/dL Creatinine (0.7-1.2) mg/dl Est GFR ( Amer) Est GFR (Non-Af Amer) POC Glucose (mg/dL) 169 H (65-110) mg/dL Random Glucose (70-110) mg/dL Calcium (8.4-10.5) mg/dL Phosphorus (2.5-4.5) mg/dL Magnesium (1.7-2.2) mg/dL Total Bilirubin (0.2-1.3) mg/dL Direct Bilirubin (0.0-0.4) mg/dL AST (14-36) U/L ALT (7-56) U/L Alkaline Phosphatase (38-126) U/L Total Protein (5.8-8.3) g/dL Albumin (3.0-4.8) g/dL Globulin gm/dL Albumin/Globulin Ratio (1.1-1.8) Stool Occult Blood (NEGATIVE) Blood Type Antibody Screen Crossmatch BBK History Checked 09/14/18 09/14/18 09/14/18 Range/Units 17:30 17:30 16:55 WBC (4.5-11.0) 10^3/uL RBC (3.5-6.1) 10^6/uL Hgb 9.7 L (12.0-16.0) g/dL Hct 32.9 L (36.0-48.0) % MCV (80.0-105.0) fl MCH (25.0-35.0) pg MCHC (31.0-37.0) g/dl RDW (11.5-14.5) % Plt Count (120.0-450.0) 10^3/uL MPV (7.0-11.0) fl Neut % (Auto) (50.0-68.0) % Lymph % (Auto) (22.0-35.0) % Haines % (Auto) (1.0-6.0) % Eos % (Auto) (1.5-5.0) % Baso % (Auto) (0.0-3.0) % Lymph # (Auto) (1.2-3.4) Haines # (Auto) (0.1-0.6) Eos # (Auto) (0.0-0.7) Baso # (Auto) (0.0-2.0) K/mm3 Absolute Neuts (auto) (1.4-6.5) PT 11.8 (9.4-12.5) SECONDS INR 1.06 APTT 50.9 H (26.9-38.3) Seconds Sodium (132-148) mmol/L Potassium (3.6-5.0) mmol/L Chloride (98-107) mmol/L Carbon Dioxide (21-33) mmol/L Anion Gap (10-20) BUN (7-21) mg/dL Creatinine (0.7-1.2) mg/dl Est GFR ( Amer) Est GFR (Non-Af Amer) POC Glucose (mg/dL) 148 H (65-110) mg/dL Random Glucose (70-110) mg/dL Calcium (8.4-10.5) mg/dL Phosphorus (2.5-4.5) mg/dL Magnesium (1.7-2.2) mg/dL Total Bilirubin (0.2-1.3) mg/dL Direct Bilirubin (0.0-0.4) mg/dL AST (14-36) U/L ALT (7-56) U/L Alkaline Phosphatase (38-126) U/L Total Protein (5.8-8.3) g/dL Albumin (3.0-4.8) g/dL Globulin gm/dL Albumin/Globulin Ratio (1.1-1.8) Stool Occult Blood (NEGATIVE) Blood Type Antibody Screen Crossmatch BBK History Checked 09/14/18 09/12/18 Range/Units 11:50 12:15 WBC (4.5-11.0) 10^3/uL RBC (3.5-6.1) 10^6/uL Hgb (12.0-16.0) g/dL Hct (36.0-48.0) % MCV (80.0-105.0) fl MCH (25.0-35.0) pg MCHC (31.0-37.0) g/dl RDW (11.5-14.5) % Plt Count (120.0-450.0) 10^3/uL MPV (7.0-11.0) fl Neut % (Auto) (50.0-68.0) % Lymph % (Auto) (22.0-35.0) % Haines % (Auto) (1.0-6.0) % Eos % (Auto) (1.5-5.0) % Baso % (Auto) (0.0-3.0) % Lymph # (Auto) (1.2-3.4) Haines # (Auto) (0.1-0.6) Eos # (Auto) (0.0-0.7) Baso # (Auto) (0.0-2.0) K/mm3 Absolute Neuts (auto) (1.4-6.5) PT (9.4-12.5) SECONDS INR APTT (26.9-38.3) Seconds Sodium (132-148) mmol/L Potassium (3.6-5.0) mmol/L Chloride (98-107) mmol/L Carbon Dioxide (21-33) mmol/L Anion Gap (10-20) BUN (7-21) mg/dL Creatinine (0.7-1.2) mg/dl Est GFR ( Amer) Est GFR (Non-Af Amer) POC Glucose (mg/dL) 108 (65-110) mg/dL Random Glucose (70-110) mg/dL Calcium (8.4-10.5) mg/dL Phosphorus (2.5-4.5) mg/dL Magnesium (1.7-2.2) mg/dL Total Bilirubin (0.2-1.3) mg/dL Direct Bilirubin (0.0-0.4) mg/dL AST (14-36) U/L ALT (7-56) U/L Alkaline Phosphatase (38-126) U/L Total Protein (5.8-8.3) g/dL Albumin (3.0-4.8) g/dL Globulin gm/dL Albumin/Globulin Ratio (1.1-1.8) Stool Occult Blood (NEGATIVE) Blood Type O POSITIVE Antibody Screen Negative Crossmatch See Detail BBK History Checked No verified bt Laboratory Results - last 24 hr 09/12/18 09/14/18 09/14/18 12:15 11:50 16:55 WBC RBC Hgb Hct MCV MCH MCHC RDW Plt Count MPV Neut % (Auto) Lymph % (Auto) Haines % (Auto) Eos % (Auto) Baso % (Auto) Lymph # (Auto) Haines # (Auto) Eos # (Auto) Baso # (Auto) Absolute Neuts (auto) PT INR APTT Sodium Potassium Chloride Carbon Dioxide Anion Gap BUN Creatinine Est GFR ( Amer) Est GFR (Non-Af Amer) POC Glucose (mg/dL) 108 148 H Random Glucose Calcium Phosphorus Magnesium Total Bilirubin Direct Bilirubin AST ALT Alkaline Phosphatase Total Protein Albumin Globulin Albumin/Globulin Ratio Stool Occult Blood Blood Type O POSITIVE Antibody Screen Negative Crossmatch See Detail BBK History Checked No verified bt 09/14/18 09/14/18 09/14/18 17:30 17:30 21:30 WBC RBC Hgb 9.7 L Hct 32.9 L MCV MCH MCHC RDW Plt Count MPV Neut % (Auto) Lymph % (Auto) Haines % (Auto) Eos % (Auto) Baso % (Auto) Lymph # (Auto) Haines # (Auto) Eos # (Auto) Baso # (Auto) Absolute Neuts (auto) PT 11.8 INR 1.06 APTT 50.9 H Sodium Potassium Chloride Carbon Dioxide Anion Gap BUN Creatinine Est GFR ( Amer) Est GFR (Non-Af Amer) POC Glucose (mg/dL) 169 H Random Glucose Calcium Phosphorus Magnesium Total Bilirubin Direct Bilirubin AST ALT Alkaline Phosphatase Total Protein Albumin Globulin Albumin/Globulin Ratio Stool Occult Blood Blood Type Antibody Screen Crossmatch BBK History Checked 09/14/18 09/15/18 09/15/18 21:49 02:07 05:02 WBC RBC Hgb 9.0 L 8.8 L Hct 30.3 L 29.4 L MCV MCH MCHC RDW Plt Count MPV Neut % (Auto) Lymph % (Auto) Haines % (Auto) Eos % (Auto) Baso % (Auto) Lymph # (Auto) Haines # (Auto) Eos # (Auto) Baso # (Auto) Absolute Neuts (auto) PT 11.4 INR 1.01 APTT 24.0 L Sodium Potassium Chloride Carbon Dioxide Anion Gap BUN Creatinine Est GFR ( Amer) Est GFR (Non-Af Amer) POC Glucose (mg/dL) Random Glucose Calcium Phosphorus Magnesium Total Bilirubin Direct Bilirubin AST ALT Alkaline Phosphatase Total Protein Albumin Globulin Albumin/Globulin Ratio Stool Occult Blood Blood Type Antibody Screen Crossmatch BBK History Checked 09/15/18 09/15/18 09/15/18 05:02 05:02 07:29 WBC 11.5 H RBC 2.92 L Hgb 8.5 L Hct 29.0 L MCV 99.3 MCH 29.1 MCHC 29.3 L RDW 14.4 Plt Count 175 MPV 10.0 Neut % (Auto) 92.5 H Lymph % (Auto) 2.8 L Haines % (Auto) 4.5 Eos % (Auto) 0.1 L Baso % (Auto) 0.1 Lymph # (Auto) 0.3 L Haines # (Auto) 0.5 Eos # (Auto) 0.0 Baso # (Auto) 0.01 Absolute Neuts (auto) 10.67 H PT INR APTT Sodium 137 Potassium 4.5 Chloride 95 L Carbon Dioxide 37 H Anion Gap 9 L BUN 46 H Creatinine 1.1 Est GFR ( Amer) 59 Est GFR (Non-Af Amer) 49 POC Glucose (mg/dL) 111 H Random Glucose 126 H Calcium 8.4 Phosphorus 5.5 H Magnesium 2.2 Total Bilirubin 0.7 Direct Bilirubin 0.4 AST 20 ALT 21 Alkaline Phosphatase 47 Total Protein 5.3 L Albumin 2.5 L Globulin 2.8 Albumin/Globulin Ratio 0.9 L Stool Occult Blood Blood Type Antibody Screen Crossmatch BBK History Checked 09/15/18 09/15/18 11:18 12:30 WBC RBC Hgb Hct MCV MCH MCHC RDW Plt Count MPV Neut % (Auto) Lymph % (Auto) Haines % (Auto) Eos % (Auto) Baso % (Auto) Lymph # (Auto) Haines # (Auto) Eos # (Auto) Baso # (Auto) Absolute Neuts (auto) PT INR APTT Sodium Potassium Chloride Carbon Dioxide Anion Gap BUN Creatinine Est GFR ( Amer) Est GFR (Non-Af Amer) POC Glucose (mg/dL) 153 H Random Glucose Calcium Phosphorus Magnesium Total Bilirubin Direct Bilirubin AST ALT Alkaline Phosphatase Total Protein Albumin Globulin Albumin/Globulin Ratio Stool Occult Blood Negative Blood Type Antibody Screen Crossmatch BBK History Checked Critical Care Progress Note - Nutrition Nutrition: Nutrition Category Date Time Status Liquid Diet [DIET] Diets 09/15/18 Lunch Ordered Assessment/Plan - Assessment and Plan (Free Text) Plan: Patient seen and examined on rounds with resident, agree with note with following additions/exceptions: Patient is n73yo female without known PMHx prior presentation, admitted with hyperpcanic, hypoxic resp failure, s/p extubation, PNA, and PE Pt was on Heparin, developed thigh hematoma, heparin stopped Repeat THIGH CT pending Pt to receive IVC filter Currently afebrile, HD stable, comfortable in NAD, doing well HH downtrending, to receive 1u PRBC Anemia PE Hematoma PNA Resp failure Hypoxia COPD Recommend: - supp o2 as needed, goal sat 90%, duonebs PRN, IS - Abx as per ID, cont Merrem, Doxy - BP control - monitor HH, transfuse 1u PRBC - Hold Heparin - IVC filter - follow up surgery, IR - GI ppx - DVT ppx - PT eval - NPO for now - Monitor in MICU
--- NOTE | 2018-09-15 11:57 | CP.PCM.APN ---
Subjective - Date & Time of Evaluation Date of Evaluation: 09/15/18 Time of Evaluation: 10:30 - Subjective Subjective: pt seen and examined, rn at bedside, pt on high flow 02, sttes she feels " about the same" as yestrday. pt with blood transfusion in progress. Review of Systems - Review of Systems All systems: reviewed and no additional remarkable complaints except Objective - Vital Signs/Intake and Output Vital Signs (last 24 hours): Temp Pulse Resp BP Pulse Ox 98.3 F 74 21 99/47 L 94 L 09/15/18 04:00 09/15/18 06:00 09/14/18 22:00 09/14/18 22:00 09/14/18 22:00 Intake and Output: 09/15/18 09/15/18 06:59 18:59 Intake Total 633 Output Total 900 Balance -267 - Medications Medications: Current Medications Acetaminophen (Tylenol 325mg Tab) 650 mg PO Q6 PRN PRN Reason: TEMP>=99.5F Last Admin: 09/14/18 17:04 Dose: 650 mg Acetaminophen (Tylenol 650 Mg Supp) 650 mg RC Q6H PRN PRN Reason: TEMP>=99.5F Acetazolamide (Diamox 250 Mg Tab) 250 mg PO BID [facility] Stop: 09/16/18 10:31 Last Admin: 09/15/18 09:58 Dose: 250 mg Albuterol/Ipratropium (Duoneb 3 Mg/0.5 Mg (3 Ml) Ud) 3 ml IH [id number] [facility] Last Admin: 09/15/18 08:07 Dose: 3 ml Allopurinol (Zyloprim) 100 mg PO DAILY [facility] Last Admin: 09/15/18 09:58 Dose: 100 mg Arformoterol Tartrate (Brovana) 15 mcg IH [id number] [facility] Budesonide (Pulmicort Respules) 0.5 mg IH [id number] [facility] Dextrose (Dextrose 50% Inj) 0 ml IV STAT PRN; Protocol PRN Reason: Hypoglycemia Protocol Ergocalciferol (Drisdol 50,000 Intl Units Cap) 1 cap PO Q7D [facility] Last Admin: 09/10/18 18:32 Dose: 1 cap Dextrose (Dextrose 5% In Water 1000 Ml) 1,000 mls @ 0 mls/hr IV .Q0M PRN; Protocol PRN Reason: Hypoglycemia Protocol Insulin Human Lispro (Humalog High) 0 units SC ACHS [facility]; Protocol Last Admin: 09/15/18 08:23 Dose: Not Given Lactic Acid (Lac-Hydrin 12% Cream (140 G)) 0 ea TOP DAILY [facility] Last Admin: 09/15/18 10:05 Dose: 1 applic Nicotine (Nicoderm Cq) 1 patch TD DAILY [facility] Last Admin: 09/15/18 09:59 Dose: 1 patch Nystatin (Nystop Topical Powder) 0 gm TOP Q6 [facility] Last Admin: 09/15/18 05:11 Dose: 1 pdr Nystatin (Mycostatin Cream) 0 ea TOP TID [facility] Last Admin: 09/15/18 10:01 Dose: 1 unit Ondansetron HCl (Zofran Inj) 4 mg IVP Q4H PRN PRN Reason: Nausea/Vomiting Pantoprazole Sodium (Protonix Ec Tab) 40 mg PO 0600,1600 [facility] Last Admin: 09/15/18 05:11 Dose: 40 mg Patiromer (Veltassa) 8.4 gm PO DAILY [facility] Stop: 09/16/18 10:01 Last Admin: 09/15/18 10:40 Dose: 8.4 gm Polyethylene Glycol (Miralax) 17 gm PO BID [facility] Last Admin: 09/15/18 09:59 Dose: 17 gm Prednisone (Prednisone Tab) 40 mg PO DAILY [facility] Stop: 09/20/18 10:01 - Labs Labs: 09/15/18 05:02 09/15/18 05:02 PT 11.4 SECONDS (9.4-12.5) 09/15/18 05:02 INR 1.01 09/15/18 05:02 APTT 24.0 Seconds (26.9-38.3) L 09/15/18 05:02 - Constitutional Appears: Chronically Ill - Head Exam Head Exam: NORMOCEPHALIC - Eye Exam Pupil Exam: PERRL - ENT Exam ENT Exam: Normal Exam - Respiratory Exam Respiratory Exam: Decreased Breath Sounds, NORMAL BREATHING PATTERN - Cardiovascular Exam Cardiovascular Exam: +S1, +S2 - Extremities Exam Extremities Exam: Pedal Edema - Neurological Exam Neurological Exam: Alert, Awake (left post thigh ecchomysis) - Skin Skin Exam: Rash (rash to grion, hip, abd,as well as left posterior knee brusing ) Assessment and Plan - Assessment and Plan (Free Text) Plan: ITS Impressions Extremity Ultrasound 09/08/18 00:00 IMPRESSION: No sonographic evidence for deep venous thrombosis in the visualized segments of both lower extremities. Chest X-Ray 09/08/18 11:27 IMPRESSION: In situ ETT as described. Bibasilar atelectasis and/or infiltrates with suspected bilateral effusions. Cardiomegaly with right-sided aortic arch.. Chest X-Ray 09/08/18 13:20 IMPRESSION: Slightly limited study demonstrating interval placement right IJ central line as above. In situ ETT. Persistent bilateral lower lobe atelectasis and/or infiltrates and bilateral effusions left larger. Cardiomegaly. Right-sided aortic arch Chest CT 09/08/18 13:50 IMPRESSION: There is evidence of pulmonary emboli are seen within the distal right lower lobe branches and proximal right lower lobe segmental branches.. Small right-sided effusion and mild right basilar atelectasis. There are compressive type atelectatic changes seen in the left medial lung base crowding of the bronchovascular markings. Marked cardiomegaly. Recommend echocardiogram to exclude right heart strain. 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 Findings discussed with Dr. James at approximately 4:22 p.m. with written down and read back verification Abdomen Ultrasound 09/08/18 23:16 IMPRESSION: Mild hepatomegaly. Diffuse increased echogenicity in the liver may reflect hepatic steatosis however parenchymal infectious/ inflammatory etiologies cannot be entirely excluded. Clinical and laboratory correlation is advised. Cholelithiasis. No biliary dilatation. The right kidney is not visualized and may be obscured by bowel gas. Abdomen/Pelvis CT 09/08/18 23:16 IMPRESSION: No acute findings related to/ accounting for the clinical presentation. Additional benign and/or incidental findings described above. Concordant findings (preliminary report) provided by [facility]. Chest X-Ray 09/09/18 05:00 IMPRESSION: Stable position of endotracheal tube. No change in moderate right and small left effusions. Right lower lobe airspace disease may represent atelectasis or developing pneumonia. Follow-up is advised. Body Scan [facility] 09/11/18 09:24 IMPRESSION: Abnormal hepatobiliary Scan. The cystic duct is occluded, presumptive evidence for acute cholecystitis. Chest X-Ray 09/11/18 09:28 IMPRESSION: Interval loss of left hemidiaphragm definition suggest atelectasis or infiltrate. Minimal left pleural effusion not excluded. Limited right infrahilar infiltrate difficult to exclude as well. Stable cardiomegaly. Status post apparent extubation. Lower Extremity CT 09/11/18 16:45 IMPRESSION: Large posterior medial thigh hematoma as discussed above. Abdomen/Pelvis CT 09/12/18 11:28 IMPRESSION: Findings suggestive of hemorrhage/hematoma involving the proximal medial thigh musculature. This area is incompletely visualized on this exam. Minimal right basilar pneumothorax, significantly decreased since prior exam. Cholelithiasis. Small bilateral pleural effusions, right greater than left, unchanged. Incompletely distended urinary bladder with wall thickening. Additional findings as above. 73 yr old female admitted for AMS and resp distress s/p intubation and extubation found with pulmonary emboli within the distal right lower lobe branches and proximal right lower lobe segmental branches of the right lung being treated with iv heparin which was held due to right LE hematoma : Large posterior medial thigh hematoma with surgical consultation on board. pt also with PNE/ vasc congestion as well as echo revelaing moderatle to severe lv dysfunction with RV hypokeneisis and strain due to PE s/p IV dobutamine with cardiology consultation, ckd with proteinuria with nepho follow up, abd wall cellulitis with ID consultation. pt currently receiving blood transfusion and is s/p FFP with plan for IR embolization vs ivc filter per surg note if h/h continues to decline. IDT notes reviewed. will continue to monitor and discuss plan of care with pmd and consultants. Marycarmen Hughes, DNP, [employer] BPCI/TIC - BPCIA/TIC Educated pt/family on BPCIA/CIR/Med to Bed Programs: N/A Flyers given, including [facility] Beneficiary letter: N/A Pt/family verbalized understanding & agreed to program: N/A
[2018-09-15] MEDS ORDERED: Iodixanol 320 mg/ml 150 ml Bottle IV ONE (12:33)
[2018-09-15] MEDS ORDERED: Iodixanol 320 MG/ML 200 ML BOTTLE IV ONE (12:33)
[2018-09-15] MEDS ORDERED: Lidocaine PF 2% (5 ml) Inj (For Cardiac Arrhy) ONE (12:33)
--- NOTE | 2018-09-15 13:25 | PN ---
DATE: 09/15/2018 CARDIOLOGY FOLLOWUP SUBJECTIVE: The patient is in bed, remains off the ventilator, in no distress. PHYSICAL EXAMINATION: VITAL SIGNS: Blood pressure is 99/47, heart rate is in the 70s. NECK: Negative JVD. LUNGS: Decreased breath sounds. HEART: Reveal S1, S2. EXTREMITIES: Without edema. LABORATORY DATA: Hemoglobin is 8.5. White count is 11.5. BUN and creatinine are 46 and 1.1. The glucose is 126. IMPRESSION: 1. Status post respiratory failure. 2. Severe chronic obstructive pulmonary disease. 3. Cardiomyopathy with an ejection fraction of 39%. 4. Segmental wall motion abnormalities consistent with coronary artery disease. 5. Status post pulmonary embolism. PLAN: Given these findings, the patient is currently hemodynamically stable. We will continue on long-term anticoagulation. Nick Rowley MD
--- NOTE | 2018-09-15 14:56 | CP.PCM.PN ---
Subjective - Date & Time of Evaluation Date of Evaluation: 09/15/18 Time of Evaluation: 14:55 - Subjective Subjective: Nephrology Consultation Note: Assessment: stable likely CKD 3 with UA 30 prot. renal imaging atrophy scarring Rt kidney and eGFR in 50s COPD/sys CHF exacerbation with PNA, acute PE, DM and sepsis morbid obesity acute on chronic hypercapnic respi failure with renal compensation active smoker hyperkalemia vit d def cholelithiasis Plan No acute need for renal replacement therapy at this time. Hypertension control with meds as ordered. Maintain hemodynamics stable. Avoid hypotension. Patient not on ACEI or ARB at present, held for low bp. can give prn veltassa for elevated K Monitor Input/Output, daily weights and renal function with basic metabolic panel lasix on hold due to her low BP . d/c diamox added weekly vit D cardiology, pulmonary following Check urine spot protein/creatinine, albumin/creatinine ratio Dose meds/antibiotics for GFR >50 Glycemic control. once stable and acute process resolved, pt will need weight loss, smoking cessation, lifestyle modifications Further work up/management as per primary team Thanks for allowing me to participate in care of your patient. Will follow patient with you. Please call if any Qs. had d/w team Dr David Harrison Office: [phone] Chief Complaint; unable Reason for consult: Acute Kidney Injury HPI: Pt is a 73 F with hx of heavy smoking, no medical follow ups presented with complaints of SOB and respi distress intubated and admitted to ICU. foudn to have CHF exacerbation with PNA, PE, DM and sepsis renal consult for abnormal imaging and renal fxn eval Denies OTC/herbal meds or NSAIDs Noted recent iodinated contrast exposure as CTA. No obvious episodes of low BP. ROS: pt extubated on o2 via NC. feels better. Physical Examination: General Appearance: better appearing on O2 via NC. no acute distress, obese Vitals reviewed and noted as below Head; Atraumatic, normocephalic ENT: normal oral mucosa EYES: Pupils are equal, round and reactive to light accommodation. Eye muscles and extraocular movement intact. Sclera is anicteric. Neck; supple no lymphadenopathy, no thyromegaly or bruit Lungs: Normal respiratory rate/effort. Breath sounds bilateral reduced Heart: Normal rate. s1s2 normal. No rub or gallop. Extremities: trace edema. No varicose veins Neurological: Patient is awake alert follows commands Skin: Warm and dry. Normal turgor. No rash. Palpitation: Normal elasticity for age Abdomen: Abdomen is soft. Bowel sounds +. There is no abdominal tenderness, no guarding/rigidity no organomegaly Psych: limited insight. MSK: no joint tenderness or swelling. Digits and nails normal, no deformity : kidney or bladder not palpable. smith farrell Labs/imaging reviewed. Past medical history, past surgical history, family history, social history, allergy reviewed and noted as below Family hx: no hx of CKD. Rest non-contributory UA 30 prot. renal imaging atrophy scarring Rt kidney Objective - Vital Signs/Intake and Output Vital Signs (last 24 hours): Temp Pulse Resp BP Pulse Ox 97.9 F 83 23 107/47 L 88 L 09/15/18 12:00 09/15/18 11:15 09/15/18 11:15 09/15/18 11:15 09/15/18 11:15 Intake and Output: 09/15/18 09/15/18 06:59 18:59 Intake Total 633 Output Total 900 Balance -267 - Medications Medications: Current Medications Acetaminophen (Tylenol 325mg Tab) 650 mg PO Q6 PRN PRN Reason: TEMP>=99.5F Last Admin: 09/14/18 17:04 Dose: 650 mg Acetaminophen (Tylenol 650 Mg Supp) 650 mg RC Q6H PRN PRN Reason: TEMP>=99.5F Acetazolamide (Diamox 250 Mg Tab) 250 mg PO BID [facility] Stop: 09/16/18 10:31 Last Admin: 09/15/18 09:58 Dose: 250 mg Albuterol/Ipratropium (Duoneb 3 Mg/0.5 Mg (3 Ml) Ud) 3 ml IH [id number] [facility] Last Admin: 09/15/18 14:29 Dose: 3 ml Allopurinol (Zyloprim) 100 mg PO DAILY [facility] Last Admin: 09/15/18 09:58 Dose: 100 mg Arformoterol Tartrate (Brovana) 15 mcg IH [id number] [facility] Budesonide (Pulmicort Respules) 0.5 mg IH [id number] [facility] Dextrose (Dextrose 50% Inj) 0 ml IV STAT PRN; Protocol PRN Reason: Hypoglycemia Protocol Ergocalciferol (Drisdol 50,000 Intl Units Cap) 1 cap PO Q7D [facility] Last Admin: 09/10/18 18:32 Dose: 1 cap Dextrose (Dextrose 5% In Water 1000 Ml) 1,000 mls @ 0 mls/hr IV .Q0M PRN; Protocol PRN Reason: Hypoglycemia Protocol Insulin Human Lispro (Humalog High) 0 units SC ACHS [facility]; Protocol Last Admin: 09/15/18 11:51 Dose: Not Given Lactic Acid (Lac-Hydrin 12% Cream (140 G)) 0 ea TOP DAILY [facility] Last Admin: 09/15/18 10:05 Dose: 1 applic Nicotine (Nicoderm Cq) 1 patch TD DAILY [facility] Last Admin: 09/15/18 09:59 Dose: 1 patch Nystatin (Nystop Topical Powder) 0 gm TOP Q6 [facility] Last Admin: 09/15/18 12:30 Dose: Not Given Nystatin (Mycostatin Cream) 0 ea TOP TID [facility] Last Admin: 09/15/18 14:27 Dose: 1 unit Ondansetron HCl (Zofran Inj) 4 mg IVP Q4H PRN PRN Reason: Nausea/Vomiting Pantoprazole Sodium (Protonix Ec Tab) 40 mg PO 0600,1600 [facility] Last Admin: 09/15/18 05:11 Dose: 40 mg Patiromer (Veltassa) 8.4 gm PO DAILY [facility] Stop: 09/16/18 10:01 Last Admin: 09/15/18 10:40 Dose: 8.4 gm Polyethylene Glycol (Miralax) 17 gm PO BID [facility] Last Admin: 09/15/18 09:59 Dose: 17 gm Prednisone (Prednisone Tab) 40 mg PO DAILY [facility] Stop: 09/20/18 10:01 - Labs Labs: 09/15/18 05:02 09/15/18 05:02 PT 11.4 SECONDS (9.4-12.5) 09/15/18 05:02 INR 1.01 09/15/18 05:02 APTT 24.0 Seconds (26.9-38.3) L 09/15/18 05:02
--- NOTE | 2018-09-15 15:20 | VASCULAR ---
PROCEDURE: IVC Filter placement HISTORY: Pulmonary embolus. Enlarging thigh hematoma. Needs IVC filter. PHYSICIAN(S): Nick Holt MD. TECHNIQUE: The relative risks and indications of the procedure were explained to the patient and consent obtained. The patient was placed supine on the arteriogram table the right groin prepped and draped usual sterile fashion. Conscious sedation and monitoring were provided throughout the procedure by a nurse. Via a right common femoral vein approach, a 5 Bulgarian sheath was placed. The guidewire and flush catheter were advanced over the IVC bifurcation and placed in the left iliac venous system. A PA DSA IVC gram was performed with emphasis on the renal veins. Exchange was made for a support wire placed in the right atrium. The 7 Bulgarian sheath was advanced to the level of the renal veins. Next a retrievable filter was deployed in the infrarenal IVC at the level of L1. A post deployment cavagram was performed through the introducer sheath. The sheath was removed and hemostasis obtained. Patient tolerated the procedure well. FINDINGS: The visualized iliac veins and IVC are normal. No evidence of IVC thrombus or anomaly is seen. The renal veins are easily identified. The retrievable filter was deployed and is in good position at the level of L1. IMPRESSION: 1. No evidence of IVC anomaly or thrombus. 2. Successful deployment of a retrievable filter in the infrarenal IVC at the level of L1.
--- NOTE | 2018-09-15 15:40 | CT ---
Date of service: 09/15/2018 PROCEDURE: CT of the left lower extremity HISTORY: hematoma COMPARISON: TECHNIQUE: Radiation dose: Total exam DLP = 1047 mGy-cm. This CT exam was performed using one or more of the following dose reduction techniques: Automated exposure control, adjustment of the mA and/or kV according to patient size, and/or use of iterative reconstruction technique. FINDINGS: There is a large complex loculated hematoma in the left hamstring muscles measuring 24 cm in length and between 6 and 7 cm transversely. There is no evidence of fracture. IMPRESSION: There is a large complex loculated hematoma in the left hamstring muscles measuring 24 cm in length and between 6 and 7 cm transversely.
[2018-09-15 17:07] LABS: HEMOGLOBIN 9.3 g/dL (12.0-16.0)
[2018-09-15] MEDS: Budesonide 0.5 mg/2 ml Inhal Susp UD IH SCH (20:30)
[2018-09-15] MEDS: Arformoterol 15 mcg/2 ml Inh Sol IH SCH (20:30)
--- NOTE | 2018-09-16 00:42 | CP.PCM.CON ---
History of Present Illness - History of Present Illness History of Present Illness: 73 year old female with a history of tobacco abuse, no recent medical evaluation, recent fall at home, presenting in respiratory distress require intubation for impending respiratory failure, now extubated with, pneumonia, sepsis, renal failure, PE on heparin, complicated by thigh hematoma, off anticoagulation s/p IVC filter, anemia s/p PRBC transfusion. The patient notes to a fall at home about 3 weeks ago which led to prolonged immobility. She feels the majority of her problems began after her fall. She denies abnormal bleeding and bruising in the past. She also noted to not seeing a doctor for a long time. A CT angio of the chest revealed right sided PE but venous duplex of the LE was negative for DVT. She was started on a heparin drip but was found to have a left thigh hematoma and required cessation of her anticoagulation and an IVC filter to be placed. Past medical history: Tobacco abuse Past surgical history: Denies Family history: Denies hematologic and oncologic problems SOcial history: 1ppd x 50 years, denies alcohol and illicit drug use Allergies: NKA Review of systems: All remaining review of systems including HEENT, cardiovascular, respiratory, gastrointestinal, genitourinary, musculoskeletal, dermatologic, neurologic, and psychiatric are negative unless mentioned in the HPI. Past Patient History - Past Social History Smoking Status: Current Some Days Smoker - CARDIAC Hx Cardiac Disorders: Yes - PULMONARY Hx Respiratory Disorders: Yes Hx Emphysema: Yes - NEUROLOGICAL Hx Neurological Disorder: Yes Other/Comment: feet cold totouch - HEENT Hx HEENT Problems: No - RENAL Hx Chronic Kidney Disease: No - ENDOCRINE/METABOLIC Hx Endocrine Disorders: No - HEMATOLOGICAL/ONCOLOGICAL Hx Blood Disorders: No - INTEGUMENTARY Hx Dermatological Problems: Yes Other/Comment: red skin to chest abd ble and feet, fungal rash to under b/l pete asts, pubic area, under abd folds, b/l groin, back, buttocks, sacrum, hips, hard dry heels to feet, dry skin feet - MUSCULOSKELETAL/RHEUMATOLOGICAL Hx Falls: No - GASTROINTESTINAL Hx Gastrointestinal Disorders: Yes (appetite changes, obese) - GENITOURINARY/GYNECOLOGICAL Hx Genitourinary Disorders: Yes Hx Incontinence: Yes - PSYCHIATRIC Hx Depression: No Hx Emotional Abuse: No Hx Physical Abuse: No Hx Substance Use: No - SURGICAL HISTORY Hx Surgeries: No Meds Allergies/Adverse Reactions: Allergies Allergy/AdvReac Type Severity Reaction Status Date / Time No Known Allergies Allergy Verified 09/08/18 11:11 - Medications Medications: Current Medications Acetaminophen (Tylenol 325mg Tab) 650 mg PO Q6 PRN PRN Reason: TEMP>=99.5F Last Admin: 09/14/18 17:04 Dose: 650 mg Acetaminophen (Tylenol 650 Mg Supp) 650 mg RC Q6H PRN PRN Reason: TEMP>=99.5F Albuterol/Ipratropium (Duoneb 3 Mg/0.5 Mg (3 Ml) Ud) 3 ml IH [id number] [facility] Last Admin: 09/15/18 20:30 Dose: 3 ml Allopurinol (Zyloprim) 100 mg PO DAILY [facility] Last Admin: 09/15/18 09:58 Dose: 100 mg Arformoterol Tartrate (Brovana) 15 mcg IH [id number] [facility] Last Admin: 09/15/18 20:30 Dose: 15 mcg Budesonide (Pulmicort Respules) 0.5 mg IH [id number] [facility] Last Admin: 09/15/18 20:30 Dose: 0.5 mg Dextrose (Dextrose 50% Inj) 0 ml IV STAT PRN; Protocol PRN Reason: Hypoglycemia Protocol Ergocalciferol (Drisdol 50,000 Intl Units Cap) 1 cap PO Q7D [facility] Last Admin: 09/10/18 18:32 Dose: 1 cap Dextrose (Dextrose 5% In Water 1000 Ml) 1,000 mls @ 0 mls/hr IV .Q0M PRN; Protocol PRN Reason: Hypoglycemia Protocol Insulin Human Lispro (Humalog High) 0 units SC ACHS [facility]; Protocol Last Admin: 09/15/18 22:24 Dose: Not Given Lactic Acid (Lac-Hydrin 12% Cream (140 G)) 0 ea TOP DAILY [facility] Last Admin: 09/15/18 10:05 Dose: 1 applic Nicotine (Nicoderm Cq) 1 patch TD DAILY [facility] Last Admin: 09/15/18 09:59 Dose: 1 patch Nystatin (Nystop Topical Powder) 0 gm TOP Q6 [facility] Last Admin: 09/15/18 18:23 Dose: 1 pdr Nystatin (Mycostatin Cream) 0 ea TOP TID [facility] Last Admin: 09/15/18 18:24 Dose: 1 unit Ondansetron HCl (Zofran Inj) 4 mg IVP Q4H PRN PRN Reason: Nausea/Vomiting Pantoprazole Sodium (Protonix Ec Tab) 40 mg PO 0600,1600 [facility] Last Admin: 09/15/18 16:48 Dose: 40 mg Polyethylene Glycol (Miralax) 17 gm PO BID [facility] Last Admin: 09/15/18 18:23 Dose: 17 gm Prednisone (Prednisone Tab) 40 mg PO DAILY [facility] Stop: 09/20/18 10:01 Physical Exam - Head Exam Head Exam: ATRAUMATIC - Eye Exam Eye Exam: Normal appearance - ENT Exam ENT Exam: Mucous Membranes Dry - Respiratory Exam Respiratory Exam: NORMAL BREATHING PATTERN - Cardiovascular Exam Cardiovascular Exam: +S1, +S2 - GI/Abdominal Exam GI & Abdominal Exam: Normal Bowel Sounds - Extremities Exam Extremities exam: Positive for: pedal edema - Neurological Exam Neurological exam: Oriented x3 - Psychiatric Exam Psychiatric exam: Normal Affect, Normal Mood Results - Vital Signs Recent Vital Signs: Last Vital Signs Temp 98.2 F 09/15/18 20:00 Pulse 73 09/15/18 22:00 Resp 20 09/15/18 20:00 BP 106/55 L 09/15/18 20:00 Pulse Ox 99 09/15/18 20:00 - Labs Result Diagrams: 09/15/18 17:01 09/15/18 05:02 Labs: Laboratory Results - last 24 hr 09/12/18 09/15/18 09/15/18 12:15 02:07 05:02 WBC RBC Hgb 8.8 L Hct 29.4 L MCV MCH MCHC RDW Plt Count MPV Neut % (Auto) Lymph % (Auto) [place] % (Auto) Eos % (Auto) Baso % (Auto) Lymph # (Auto) [place] # (Auto) Eos # (Auto) Baso # (Auto) Absolute Neuts (auto) PT 11.4 INR 1.01 APTT 24.0 L Sodium Potassium Chloride Carbon Dioxide Anion Gap BUN Creatinine Est GFR ( Amer) Est GFR (Non-Af Amer) POC Glucose (mg/dL) Random Glucose Calcium Phosphorus Magnesium Total Bilirubin Direct Bilirubin AST ALT Alkaline Phosphatase Total Creatine Kinase Total Protein Albumin Globulin Albumin/Globulin Ratio Stool Occult Blood Blood Type O POSITIVE Antibody Screen Negative Crossmatch See Detail BBK History Checked No verified bt 03/18/19 03/18/19 03/18/19 05:02 05:02 05:02 WBC 11.5 H RBC 2.92 L Hgb 8.5 L Hct 29.0 L MCV 99.3 MCH 29.1 MCHC 29.3 L RDW 14.4 Plt Count 175 MPV 10.0 Neut % (Auto) 92.5 H Lymph % (Auto) 2.8 L [place] % (Auto) 4.5 Eos % (Auto) 0.1 L Baso % (Auto) 0.1 Lymph # (Auto) 0.3 L [place] # (Auto) 0.5 Eos # (Auto) 0.0 Baso # (Auto) 0.01 Absolute Neuts (auto) 10.67 H PT INR APTT Sodium 137 Potassium 4.5 Chloride 95 L Carbon Dioxide 37 H Anion Gap 9 L BUN 46 H Creatinine 1.1 Est GFR ( Amer) 59 Est GFR (Non-Af Amer) 49 POC Glucose (mg/dL) Random Glucose 126 H Calcium 8.4 Phosphorus 5.5 H Magnesium 2.2 Total Bilirubin 0.7 Direct Bilirubin 0.4 AST 20 ALT 21 Alkaline Phosphatase 47 Total Creatine Kinase 61 Total Protein 5.3 L Albumin 2.5 L Globulin 2.8 Albumin/Globulin Ratio 0.9 L Stool Occult Blood Blood Type Antibody Screen Crossmatch BBK History Checked 09/15/18 09/15/18 09/15/18 07:29 11:18 12:30 WBC RBC Hgb Hct MCV MCH MCHC RDW Plt Count MPV Neut % (Auto) Lymph % (Auto) [place] % (Auto) Eos % (Auto) Baso % (Auto) Lymph # (Auto) [place] # (Auto) Eos # (Auto) Baso # (Auto) Absolute Neuts (auto) PT INR APTT Sodium Potassium Chloride Carbon Dioxide Anion Gap BUN Creatinine Est GFR ( Amer) Est GFR (Non-Af Amer) POC Glucose (mg/dL) 111 H 153 H Random Glucose Calcium Phosphorus Magnesium Total Bilirubin Direct Bilirubin AST ALT Alkaline Phosphatase Total Creatine Kinase Total Protein Albumin Globulin Albumin/Globulin Ratio Stool Occult Blood Negative Blood Type Antibody Screen Crossmatch BBK History Checked 09/15/18 09/15/18 09/15/18 16:45 17:01 17:35 WBC RBC Hgb 9.3 L Hct 30.8 L MCV MCH MCHC RDW Plt Count MPV Neut % (Auto) Lymph % (Auto) [place] % (Auto) Eos % (Auto) Baso % (Auto) Lymph # (Auto) [place] # (Auto) Eos # (Auto) Baso # (Auto) Absolute Neuts (auto) PT INR APTT Sodium Potassium Chloride Carbon Dioxide Anion Gap BUN Creatinine Est GFR ( Amer) Est GFR (Non-Af Amer) POC Glucose (mg/dL) 147 H Random Glucose Calcium Phosphorus Magnesium Total Bilirubin Direct Bilirubin AST ALT Alkaline Phosphatase Total Creatine Kinase Total Protein Albumin Globulin Albumin/Globulin Ratio Stool Occult Blood Blood Type O POSITIVE Antibody Screen Negative Crossmatch See Detail BBK History Checked Patient has bt Assessment & Plan (1) Thigh hematoma Assessment and Plan: likely related to recent fall and anticoagulation agree with holding anticoagulation and IVC filter placement Status: Acute (2) Pulmonary embolism Assessment and Plan: likely embolized from lower extremities given recent fall and immobility anticoagulation contraindicated given acute thigh hematoma s/p retrievable IVC filter Status: Acute (3) Anemia Assessment and Plan: retic count, b12, folate, ferritin, FOBT to further characterize acute thigh hematoma transfusion support PRN Thank you for this interesting consult. Status: Acute
[2018-09-16] MEDS: Nystatin 100,000 Units/gm Topical Pow(15 gm) TOP SCH ×5 (00:58→23:30)
[2018-09-16] MEDS: Albuterol-Ipratrop 3 mg / 0.5 (3 ml) UD IH SCH ×4 (01:08→19:27)
[2018-09-16] MEDS: Pantoprazole 40 mg EC Tab PO SCH (05:50)
[2018-09-16 06:42] LABS: EOS # 0.2 (0.0-0.7); EOS % 1.7 % (1.5-5.0); HEMOGLOBIN 9.3 g/dL (12.0-16.0); LYMPH # 0.7 (1.2-3.4); LYMPH % 7.6 % (22.0-35.0); MEAN CORPUSCULAR HGB CONC 30.1 g/dl (31.0-37.0); MEAN PLATELET VOLUME 9.9 fl (7.0-11.0); MONO # 0.8 (0.1-0.6); MONO % 8.8 % (1.0-6.0); RBC 3.21 10^6/uL (3.5-6.1); RED CELL DISTRIBUTION WIDTH 15.2 % (11.5-14.5); WHITE BLOOD COUNT 8.7 10^3/uL (4.5-11.0)
[2018-09-16 06:45] LABS: MEAN CELL VOLUME 96.3 fl (80.0-105.0)
[2018-09-16 06:54] LABS: PROTHROMBIN TIME 11.3 SECONDS (9.4-12.5)
[2018-09-16 07:04] LABS: ALBUMIN 2.7 g/dL (3.0-4.8); ALT/SGPT 21 U/L (7-56); AST/SGOT 29 U/L (14-36); BILIRUBIN,DIRECT 0.3 mg/dL (0.0-0.4); BLOOD UREA NITROGEN 38 mg/dL (7-21); CALCIUM 8.5 mg/dL (8.4-10.5); GFR NON-AFRICAN AMERICAN > 60
[2018-09-16] MEDS: Budesonide 0.5 mg/2 ml Inhal Susp UD IH SCH ×2 (08:09→19:27)
[2018-09-16] MEDS: Arformoterol 15 mcg/2 ml Inh Sol IH SCH ×2 (08:09→19:26)
[2018-09-16] MEDS: Insulin Lispro (HUMAlog) HIGH Coverage SC SCH ×4 (09:26→23:29)
--- NOTE | 2018-09-16 09:45 | CP.PCM.PN ---
Subjective - Date & Time of Evaluation Date of Evaluation: 09/16/18 Time of Evaluation: 09:45 Objective - Vital Signs/Intake and Output Vital Signs (last 24 hours): Temp Pulse Resp BP Pulse Ox 99.3 F 73 22 126/43 L 22 L 09/16/18 00:00 09/16/18 06:00 09/16/18 05:00 09/16/18 00:00 09/16/18 00:00 Intake and Output: 09/16/18 09/16/18 06:59 18:59 Intake Total 250 Output Total 950 Balance -700 - Medications Medications: Current Medications Acetaminophen (Tylenol 325mg Tab) 650 mg PO Q6 PRN PRN Reason: TEMP>=99.5F Last Admin: 09/14/18 17:04 Dose: 650 mg Acetaminophen (Tylenol 650 Mg Supp) 650 mg RC Q6H PRN PRN Reason: TEMP>=99.5F Albuterol/Ipratropium (Duoneb 3 Mg/0.5 Mg (3 Ml) Ud) 3 ml IH [id number] [facility] [place] Last Admin: 09/16/18 08:09 Dose: 3 ml Allopurinol (Zyloprim) 100 mg PO DAILY [facility] [place] Last Admin: 09/15/18 09:58 Dose: 100 mg Arformoterol Tartrate (Brovana) 15 mcg IH [id number] [facility] [place] Last Admin: 09/16/18 08:09 Dose: 15 mcg Budesonide (Pulmicort Respules) 0.5 mg IH [id number] [facility] [place] Last Admin: 09/16/18 08:09 Dose: 0.5 mg Dextrose (Dextrose 50% Inj) 0 ml IV STAT PRN; Protocol PRN Reason: Hypoglycemia Protocol Ergocalciferol (Drisdol 50,000 Intl Units Cap) 1 cap PO Q7D [facility] [place] Last Admin: 09/10/18 18:32 Dose: 1 cap Furosemide (Lasix) 40 mg IVP DAILY [facility] [place] Dextrose (Dextrose 5% In Water 1000 Ml) 1,000 mls @ 0 mls/hr IV .Q0M PRN; Protocol PRN Reason: Hypoglycemia Protocol Insulin Human Lispro (Humalog High) 0 units SC ACHS [facility] [place]; Protocol Last Admin: 09/16/18 09:26 Dose: Not Given Lactic Acid (Lac-Hydrin 12% Cream (140 G)) 0 ea TOP DAILY [facility] [place] Last Admin: 09/15/18 10:05 Dose: 1 applic Nicotine (Nicoderm Cq) 1 patch TD DAILY [facility] Last Admin: 09/15/18 09:59 Dose: 1 patch Nystatin (Nystop Topical Powder) 0 gm TOP Q6 [facility] Last Admin: 09/16/18 05:50 Dose: 2 pdr Nystatin (Mycostatin Cream) 0 ea TOP TID [facility] Last Admin: 09/15/18 18:24 Dose: 1 unit Ondansetron HCl (Zofran Inj) 4 mg IVP Q4H PRN PRN Reason: Nausea/Vomiting Pantoprazole Sodium (Protonix Ec Tab) 40 mg PO 0600,1600 [facility] [place] Last Admin: 09/16/18 05:50 Dose: 40 mg Polyethylene Glycol (Miralax) 17 gm PO BID [facility] Last Admin: 09/15/18 18:23 Dose: 17 gm Prednisone (Prednisone Tab) 40 mg PO DAILY [facility] [place] Stop: 09/20/18 10:01 - Labs Labs: 09/16/18 05:30 09/16/18 05:30 PT 11.3 SECONDS (9.4-12.5) 09/16/18 05:30 INR 1.00 09/16/18 05:30 APTT 25.0 Seconds (26.9-38.3) L 09/16/18 05:30
[2018-09-16] MEDS: Nystatin 100,000 Units/gm Cream(15 gm) TOP SCH ×3 (10:40→19:38)
[2018-09-16] MEDS: POLYETHYLENE GLYCOL 3350 17 GM/Dose PACKET PO SCH ×2 (11:16→19:32)
[2018-09-16] MEDS: VITS A AND D/WHITE PET/LANOLIN 113.4 APPLIC/113.4 G TUBE TP SCH (11:21)
--- NOTE | 2018-09-16 11:55 | CP.CCUPN ---
<Christopher Crockett - Last Filed: 09/16/18 12:08> CCU Subjective - Physician Review Subjective (Free Text): Christopher Crockett DO. Critical Care Progress note Patient seen and examined at bedside. She is awake, oriented in NAD. She has been on high flow, O2 sat 94% . She is tolerating diet, Denies CP, SOB, palpitations, leg pain. CCU Objective - Vital Signs / Intake & Output Intake and Output (Last 8hrs): Intake & Output 09/15/18 09/16/18 09/16/18 22:59 06:59 14:59 Intake Total 1145 250 Output Total 1276 950 Balance -131 -700 Intake: IV 100 Right Internal Jugular 100 Oral 720 250 Blood Product 325 Output: Urine 1275 950 Urethral (Alonzo) 1275 950 Stool 1 - Physical Exam Head: Positive for: Atraumatic, Normocephalic Conjunctiva: Positive for: Normal, Other Mouth: Positive for: Dry Nose (Internal): Positive for: Normal Inspection Neck: Positive for: Trachea Midline. Negative for: JVD, Bruit Respiratory/Chest: Positive for: Clear to Auscultation, Good Air Exchange. Negative for: Respiratory Distress Cardiovascular: Positive for: Regular Rate and Rhythm, Normal S1, S2. Negative for: Rub, Gallop Abdomen: Positive for: Normal Bowel Sounds. Negative for: Tenderness, Distention Breast/Axillary: Positive for: Erythema (Erythematous bilateral candidal rash to breast) Lower Extremity: Positive for: Edema (3+ pedal edema bilateral), NORMAL PULSES, Normal ROM, Tenderness, Swelling, Neurovascularly Intact, Other (left posterior knee brusing noted from undrlying hematoma). Negative for: CALF TENDERNESS, Erythema Neurological: Positive for: GCS=15, Speech Normal Skin: Positive for: Rashes, Erythematous (bilateral candidal rash to groin, hips, abdomen) Psychiatric: Positive for: Oriented x 3, Normal Insight, Normal Concentration - Medications Active Medications: Active Medications Generic Name Dose Route Start Last Admin Trade Name Freq PRN Reason Stop Dose Admin Acetaminophen 650 mg 09/08/18 14:22 09/14/18 17:04 Tylenol 325mg Tab PO 650 mg Q6 PRN Administration TEMP>=99.5F Acetaminophen 650 mg 09/08/18 14:22 Tylenol 650 Mg Supp RC Q6H PRN TEMP>=99.5F Albuterol/Ipratropium 3 ml 09/13/18 14:00 09/16/18 08:09 Duoneb 3 Mg/0.5 Mg (3 Ml) Ud IH 3 ml [id number] DEANGELO Administration Allopurinol 100 mg 09/09/18 10:00 09/16/18 11:20 Zyloprim PO 100 mg DAILY DEANGELO Administration Arformoterol Tartrate 15 mcg 09/15/18 20:00 09/16/18 08:09 Brovana IH 15 mcg [id number] DEANGELO Administration Budesonide 0.5 mg 09/15/18 20:00 09/16/18 08:09 Pulmicort Respules IH 0.5 mg [id number] DEANGELO Administration Dextrose 0 ml 09/08/18 22:59 Dextrose 50% Inj IV STAT PRN Hypoglycemia Protocol Protocol Ergocalciferol 1 cap 09/10/18 14:30 09/10/18 18:32 Drisdol 50,000 Intl Units Cap PO 1 cap Q7D DEANGELO Administration Furosemide 40 mg 09/17/18 10:00 Lasix IVP DAILY DEANGELO Dextrose 1,000 mls @ 0 mls/hr 09/08/18 22:59 Dextrose 5% In Water 1000 Ml IV .Q0M PRN Hypoglycemia Protocol Protocol Per Protocol Insulin Human Lispro 0 units 09/11/18 22:00 09/16/18 09:26 Humalog High SC Not Given ACHS DEANGELO Protocol Lactic Acid 0 ea 09/10/18 10:00 09/15/18 10:05 Lac-Hydrin 12% Cream (140 G) TOP 1 applic DAILY DEANGELO Administration Nicotine 1 patch 09/09/18 10:00 09/16/18 11:16 Nicoderm Cq TD 1 patch DAILY DEANGELO Administration Nystatin 0 gm 09/08/18 18:00 09/16/18 11:22 Nystop Topical Powder TOP 1 pdr Q6 DEANGELO Administration Nystatin 0 ea 09/08/18 23:00 09/15/18 18:24 Mycostatin Cream TOP 1 unit TID DEANGELO Administration Ondansetron HCl 4 mg 09/08/18 14:22 Zofran Inj IVP Q4H PRN Nausea/Vomiting Pantoprazole Sodium 40 mg 09/11/18 06:00 09/16/18 05:50 Protonix Ec Tab PO 40 mg 0600,1600 DEANGELO Administration Polyethylene Glycol 17 gm 09/11/18 10:00 09/16/18 11:16 Miralax PO 17 gm BID DEANGELO Administration Prednisone 40 mg 09/16/18 10:00 09/16/18 11:16 Prednisone Tab PO 09/20/18 10:01 40 mg DAILY DEANGELO Administration - Patient Studies Lab Studies: Lab Studies 09/16/18 09/16/18 09/16/18 Range/Units 07:57 05:30 05:30 WBC (4.5-11.0) 10^3/uL RBC (3.5-6.1) 10^6/uL Hgb (12.0-16.0) g/dL Hct (36.0-48.0) % MCV (80.0-105.0) fl MCH (25.0-35.0) pg MCHC (31.0-37.0) g/dl RDW (11.5-14.5) % Plt Count (120.0-450.0) 10^3/uL MPV (7.0-11.0) fl Neut % (Auto) (50.0-68.0) % Lymph % (Auto) (22.0-35.0) % [place] % (Auto) (1.0-6.0) % Eos % (Auto) (1.5-5.0) % Baso % (Auto) (0.0-3.0) % Lymph # (Auto) (1.2-3.4) [place] # (Auto) (0.1-0.6) Eos # (Auto) (0.0-0.7) Baso # (Auto) (0.0-2.0) K/mm3 Absolute Neuts (auto) (1.4-6.5) Retic Count 1.88 H (0.5-1.5) % PT (9.4-12.5) SECONDS INR APTT (26.9-38.3) Seconds Sodium 135 (132-148) mmol/L Potassium 4.2 (3.6-5.0) mmol/L Chloride 98 (98-107) mmol/L Carbon Dioxide 37 H (21-33) mmol/L Anion Gap 5 L (10-20) BUN 38 H (7-21) mg/dL Creatinine 0.9 (0.7-1.2) mg/dl Est GFR ( Amer) > 60 Est GFR (Non-Af Amer) > 60 POC Glucose (mg/dL) 99 (65-110) mg/dL Random Glucose 92 (70-110) mg/dL Calcium 8.5 (8.4-10.5) mg/dL Phosphorus 3.1 (2.5-4.5) mg/dL Magnesium 2.0 (1.7-2.2) mg/dL Total Bilirubin 0.8 (0.2-1.3) mg/dL Direct Bilirubin 0.3 (0.0-0.4) mg/dL AST 29 (14-36) U/L ALT 21 (7-56) U/L Alkaline Phosphatase 53 (38-126) U/L Total Creatine Kinase (35-230) U/L Total Protein 5.4 L (5.8-8.3) g/dL Albumin 2.7 L (3.0-4.8) g/dL Globulin 2.8 gm/dL Albumin/Globulin Ratio 1.0 L (1.1-1.8) Stool Occult Blood (NEGATIVE) Blood Type Antibody Screen Crossmatch BBK History Checked 09/16/18 09/16/18 09/15/18 Range/Units 05:30 05:30 21:14 WBC 8.7 D (4.5-11.0) 10^3/uL RBC 3.21 L (3.5-6.1) 10^6/uL Hgb 9.3 L (12.0-16.0) g/dL Hct 30.9 L (36.0-48.0) % MCV 96.3 D (80.0-105.0) fl MCH 29.0 (25.0-35.0) pg MCHC 30.1 L (31.0-37.0) g/dl RDW 15.2 H (11.5-14.5) % Plt Count 206 (120.0-450.0) 10^3/uL MPV 9.9 (7.0-11.0) fl Neut % (Auto) 81.9 H (50.0-68.0) % Lymph % (Auto) 7.6 L (22.0-35.0) % [place] % (Auto) 8.8 H (1.0-6.0) % Eos % (Auto) 1.7 (1.5-5.0) % Baso % (Auto) 0.0 (0.0-3.0) % Lymph # (Auto) 0.7 L (1.2-3.4) [place] # (Auto) 0.8 H (0.1-0.6) Eos # (Auto) 0.2 (0.0-0.7) Baso # (Auto) 0.00 (0.0-2.0) K/mm3 Absolute Neuts (auto) 7.08 H (1.4-6.5) Retic Count (0.5-1.5) % PT 11.3 (9.4-12.5) SECONDS INR 1.00 APTT 25.0 L (26.9-38.3) Seconds Sodium (132-148) mmol/L Potassium (3.6-5.0) mmol/L Chloride (98-107) mmol/L Carbon Dioxide (21-33) mmol/L Anion Gap (10-20) BUN (7-21) mg/dL Creatinine (0.7-1.2) mg/dl Est GFR ( Amer) Est GFR (Non-Af Amer) POC Glucose (mg/dL) 119 H (65-110) mg/dL Random Glucose (70-110) mg/dL Calcium (8.4-10.5) mg/dL Phosphorus (2.5-4.5) mg/dL Magnesium (1.7-2.2) mg/dL Total Bilirubin (0.2-1.3) mg/dL Direct Bilirubin (0.0-0.4) mg/dL AST (14-36) U/L ALT (7-56) U/L Alkaline Phosphatase (38-126) U/L Total Creatine Kinase (35-230) U/L Total Protein (5.8-8.3) g/dL Albumin (3.0-4.8) g/dL Globulin gm/dL Albumin/Globulin Ratio (1.1-1.8) Stool Occult Blood (NEGATIVE) Blood Type Antibody Screen Crossmatch BBK History Checked 09/15/18 09/15/18 09/15/18 Range/Units 17:35 17:01 16:45 WBC (4.5-11.0) 10^3/uL RBC (3.5-6.1) 10^6/uL Hgb 9.3 L (12.0-16.0) g/dL Hct 30.8 L (36.0-48.0) % MCV (80.0-105.0) fl MCH (25.0-35.0) pg MCHC (31.0-37.0) g/dl RDW (11.5-14.5) % Plt Count (120.0-450.0) 10^3/uL MPV (7.0-11.0) fl Neut % (Auto) (50.0-68.0) % Lymph % (Auto) (22.0-35.0) % [place] % (Auto) (1.0-6.0) % Eos % (Auto) (1.5-5.0) % Baso % (Auto) (0.0-3.0) % Lymph # (Auto) (1.2-3.4) [place] # (Auto) (0.1-0.6) Eos # (Auto) (0.0-0.7) Baso # (Auto) (0.0-2.0) K/mm3 Absolute Neuts (auto) (1.4-6.5) Retic Count (0.5-1.5) % PT (9.4-12.5) SECONDS INR APTT (26.9-38.3) Seconds Sodium (132-148) mmol/L Potassium (3.6-5.0) mmol/L Chloride (98-107) mmol/L Carbon Dioxide (21-33) mmol/L Anion Gap (10-20) BUN (7-21) mg/dL Creatinine (0.7-1.2) mg/dl Est GFR ( Amer) Est GFR (Non-Af Amer) POC Glucose (mg/dL) 147 H (65-110) mg/dL Random Glucose (70-110) mg/dL Calcium (8.4-10.5) mg/dL Phosphorus (2.5-4.5) mg/dL Magnesium (1.7-2.2) mg/dL Total Bilirubin (0.2-1.3) mg/dL Direct Bilirubin (0.0-0.4) mg/dL AST (14-36) U/L ALT (7-56) U/L Alkaline Phosphatase (38-126) U/L Total Creatine Kinase (35-230) U/L Total Protein (5.8-8.3) g/dL Albumin (3.0-4.8) g/dL Globulin gm/dL Albumin/Globulin Ratio (1.1-1.8) Stool Occult Blood (NEGATIVE) Blood Type O POSITIVE Antibody Screen Negative Crossmatch See Detail BBK History Checked Patient has bt 09/15/18 09/15/18 09/12/18 Range/Units 12:30 05:02 12:15 WBC (4.5-11.0) 10^3/uL RBC (3.5-6.1) 10^6/uL Hgb (12.0-16.0) g/dL Hct (36.0-48.0) % MCV (80.0-105.0) fl MCH (25.0-35.0) pg MCHC (31.0-37.0) g/dl RDW (11.5-14.5) % Plt Count (120.0-450.0) 10^3/uL MPV (7.0-11.0) fl Neut % (Auto) (50.0-68.0) % Lymph % (Auto) (22.0-35.0) % [place] % (Auto) (1.0-6.0) % Eos % (Auto) (1.5-5.0) % Baso % (Auto) (0.0-3.0) % Lymph # (Auto) (1.2-3.4) [place] # (Auto) (0.1-0.6) Eos # (Auto) (0.0-0.7) Baso # (Auto) (0.0-2.0) K/mm3 Absolute Neuts (auto) (1.4-6.5) Retic Count (0.5-1.5) % PT (9.4-12.5) SECONDS INR APTT (26.9-38.3) Seconds Sodium (132-148) mmol/L Potassium (3.6-5.0) mmol/L Chloride (98-107) mmol/L Carbon Dioxide (21-33) mmol/L Anion Gap (10-20) BUN (7-21) mg/dL Creatinine (0.7-1.2) mg/dl Est GFR ( Amer) Est GFR (Non-Af Amer) POC Glucose (mg/dL) (65-110) mg/dL Random Glucose (70-110) mg/dL Calcium (8.4-10.5) mg/dL Phosphorus (2.5-4.5) mg/dL Magnesium (1.7-2.2) mg/dL Total Bilirubin (0.2-1.3) mg/dL Direct Bilirubin (0.0-0.4) mg/dL AST (14-36) U/L ALT (7-56) U/L Alkaline Phosphatase (38-126) U/L Total Creatine Kinase 61 (35-230) U/L Total Protein (5.8-8.3) g/dL Albumin (3.0-4.8) g/dL Globulin gm/dL Albumin/Globulin Ratio (1.1-1.8) Stool Occult Blood Negative (NEGATIVE) Blood Type O POSITIVE Antibody Screen Negative Crossmatch See Detail BBK History Checked No verified bt Laboratory Results - last 24 hr 09/12/18 09/15/18 09/15/18 12:15 05:02 12:30 WBC RBC Hgb Hct MCV MCH MCHC RDW Plt Count MPV Neut % (Auto) Lymph % (Auto) [place] % (Auto) Eos % (Auto) Baso % (Auto) Lymph # (Auto) [place] # (Auto) Eos # (Auto) Baso # (Auto) Absolute Neuts (auto) Retic Count PT INR APTT Sodium Potassium Chloride Carbon Dioxide Anion Gap BUN Creatinine Est GFR ( Amer) Est GFR (Non-Af Amer) POC Glucose (mg/dL) Random Glucose Calcium Phosphorus Magnesium Total Bilirubin Direct Bilirubin AST ALT Alkaline Phosphatase Total Creatine Kinase 61 Total Protein Albumin Globulin Albumin/Globulin Ratio Stool Occult Blood Negative Blood Type O POSITIVE Antibody Screen Negative Crossmatch See Detail BBK History Checked No verified bt 09/15/18 09/15/18 09/15/18 16:45 17:01 17:35 WBC RBC Hgb 9.3 L Hct 30.8 L MCV MCH MCHC RDW Plt Count MPV Neut % (Auto) Lymph % (Auto) [place] % (Auto) Eos % (Auto) Baso % (Auto) Lymph # (Auto) [place] # (Auto) Eos # (Auto) Baso # (Auto) Absolute Neuts (auto) Retic Count PT INR APTT Sodium Potassium Chloride Carbon Dioxide Anion Gap BUN Creatinine Est GFR ( Amer) Est GFR (Non-Af Amer) POC Glucose (mg/dL) 147 H Random Glucose Calcium Phosphorus Magnesium Total Bilirubin Direct Bilirubin AST ALT Alkaline Phosphatase Total Creatine Kinase Total Protein Albumin Globulin Albumin/Globulin Ratio Stool Occult Blood Blood Type O POSITIVE Antibody Screen Negative Crossmatch See Detail BBK History Checked Patient has bt 09/15/18 09/16/18 09/16/18 21:14 05:30 05:30 WBC 8.7 D RBC 3.21 L Hgb 9.3 L Hct 30.9 L MCV 96.3 D MCH 29.0 MCHC 30.1 L RDW 15.2 H Plt Count 206 MPV 9.9 Neut % (Auto) 81.9 H Lymph % (Auto) 7.6 L [place] % (Auto) 8.8 H Eos % (Auto) 1.7 Baso % (Auto) 0.0 Lymph # (Auto) 0.7 L [place] # (Auto) 0.8 H Eos # (Auto) 0.2 Baso # (Auto) 0.00 Absolute Neuts (auto) 7.08 H Retic Count PT 11.3 INR 1.00 APTT 25.0 L Sodium Potassium Chloride Carbon Dioxide Anion Gap BUN Creatinine Est GFR ( Amer) Est GFR (Non-Af Amer) POC Glucose (mg/dL) 119 H Random Glucose Calcium Phosphorus Magnesium Total Bilirubin Direct Bilirubin AST ALT Alkaline Phosphatase Total Creatine Kinase Total Protein Albumin Globulin Albumin/Globulin Ratio Stool Occult Blood Blood Type Antibody Screen Crossmatch BBK History Checked 09/16/18 09/16/18 09/16/18 05:30 05:30 07:57 WBC RBC Hgb Hct MCV MCH MCHC RDW Plt Count MPV Neut % (Auto) Lymph % (Auto) [place] % (Auto) Eos % (Auto) Baso % (Auto) Lymph # (Auto) [place] # (Auto) Eos # (Auto) Baso # (Auto) Absolute Neuts (auto) Retic Count 1.88 H PT INR APTT Sodium 135 Potassium 4.2 Chloride 98 Carbon Dioxide 37 H Anion Gap 5 L BUN 38 H Creatinine 0.9 Est GFR ( Amer) > 60 Est GFR (Non-Af Amer) > 60 POC Glucose (mg/dL) 99 Random Glucose 92 Calcium 8.5 Phosphorus 3.1 Magnesium 2.0 Total Bilirubin 0.8 Direct Bilirubin 0.3 AST 29 ALT 21 Alkaline Phosphatase 53 Total Creatine Kinase Total Protein 5.4 L Albumin 2.7 L Globulin 2.8 Albumin/Globulin Ratio 1.0 L Stool Occult Blood Blood Type Antibody Screen Crossmatch BBK History Checked Radiology Impressions: Radiology Impressions Lower Extremity CT 09/15/18 11:48 IMPRESSION: There is a large complex loculated hematoma in the left hamstring muscles measuring 24 cm in length and between 6 and 7 cm transversely. Interventional Vascular Procedure 09/15/18 12:30 IMPRESSION: 1. No evidence of IVC anomaly or thrombus. 2. Successful deployment of a retrievable filter in the infrarenal IVC at the level of L1. Fingerstick Blood Sugar Results: 99 Critical Care Progress Note - Nutrition Nutrition: Nutrition Category Date Time Status Heart Healthy Diet [DIET] Diets 09/15/18 Dinner Active Assessment/Plan - Assessment and Plan (Free Text) Assessment: 73 y/o female admitted to ICU for AMS and respiratory distress found to have PE on right lung with possible PNA and biventricular dysfunction in the setting of CHF exacerbation. She is doing well on high flow with O2 sat 94% Plan: Neuro: -AAO x3 in NAD -maintain normthermia Cardio: -Echo: moderate to severe LV dysfunction. Right ventricular hypokinesia and strain in the setting of PE -continue dobutamine 2.5 mcg/kg/min -continue lasix 40 mg daily -BNP trending down -trops leak likely due to RV strain in the setting of PE -maintain MAP> 65 -cardiology following Pulm: -resolved acute respiratory failure, currently on high flow -CT chest: subsegmental right lung PE with small pleural effusion -LE doppler negative for DVT -CT right LE (09/11): large posterior lateral hematoma [id number] -CT right LE (09/15): large posterior lateral hematoma 24x6x7 -d/c heparin drip. PTT 25 -CXR: vascular congestion. possible PNA. Repeat CXR shows improvement -d/c solu-medrol -started prednisone 40 mg PO daily x5 days -startred pulmicort q12 -continue xopenex q6h deangelo Heme: -H/H dropped from 17/55.5 on (09/08) 8.5/29 today (09/15) patient asymptomatic -likely due to hematoma in LLE -received 1unit of PRBC (09/15) -received 2 units of FFP (09/15) -IVC filter placed (09/15) -FOBT negative -PT/INR wnl -further work up for anemia as per primary team -transfuse prn -surgery following ID: -continue topical nystatin for abdominal fungal infection -repeat CPK (09/15) normal -UCx, BCx, sputum Cx negative -legionella strep Ag, MRSA negative -low procal -continue meropenem, doxycycline PO -afebrile, no leukocytosis -ID following /Renal: -CKD with proteinurea -continue acetazolamide 250 po bid for 3 days per nephro for high bicarb, 37 -UOP 2725 -maintain euvolemia, euglycemia -nephrology following Prophylaxis: Protonix bid SCD OT/PT Heart healthy diet Patient is hemodynamically stable, Hb level is appropriate, no SOB. Transfer to telemetry today Case reviewed and discussed with attending Dr Gonzales <Murphy Gonzales - Last Filed: 09/16/18 13:43> CCU Objective - Vital Signs / Intake & Output Intake and Output (Last 8hrs): Intake & Output 09/15/18 09/16/18 09/16/18 22:59 06:59 14:59 Intake Total 1145 250 Output Total 1276 950 Balance -131 -700 Intake: IV 100 Right Internal Jugular 100 Oral 720 250 Blood Product 325 Output: Urine 1275 950 Urethral (Alonzo) 1275 950 Stool 1 - Medications Active Medications: Active Medications Generic Name Dose Route Start Last Admin Trade Name Freq PRN Reason Stop Dose Admin Acetaminophen 650 mg 09/08/18 14:22 09/14/18 17:04 Tylenol 325mg Tab PO 650 mg Q6 PRN Administration TEMP>=99.5F Acetaminophen 650 mg 09/08/18 14:22 Tylenol 650 Mg Supp RC Q6H PRN TEMP>=99.5F Albuterol/Ipratropium 3 ml 09/13/18 14:00 09/16/18 13:30 Duoneb 3 Mg/0.5 Mg (3 Ml) Ud IH 3 ml [id number] DEANGELO Administration Allopurinol 100 mg 09/09/18 10:00 09/16/18 11:20 Zyloprim PO 100 mg DAILY DEANGELO Administration Arformoterol Tartrate 15 mcg 09/15/18 20:00 09/16/18 08:09 Brovana IH 15 mcg [id number] DEANGELO Administration Budesonide 0.5 mg 09/15/18 20:00 09/16/18 08:09 Pulmicort Respules IH 0.5 mg [id number] DEANGELO Administration Dextrose 0 ml 09/08/18 22:59 Dextrose 50% Inj IV STAT PRN Hypoglycemia Protocol Protocol Ergocalciferol 1 cap 09/10/18 14:30 09/10/18 18:32 Drisdol 50,000 Intl Units Cap PO 1 cap Q7D DEANGELO Administration Furosemide 40 mg 09/17/18 10:00 Lasix IVP DAILY DEANGELO Dextrose 1,000 mls @ 0 mls/hr 09/08/18 22:59 Dextrose 5% In Water 1000 Ml IV .Q0M PRN Hypoglycemia Protocol Protocol Per Protocol Insulin Human Lispro 0 units 09/11/18 22:00 09/16/18 09:26 Humalog High SC Not Given ACHS DEANGELO Protocol Lactic Acid 0 ea 09/10/18 10:00 09/15/18 10:05 Lac-Hydrin 12% Cream (140 G) TOP 1 applic DAILY DEANGELO Administration Nicotine 1 patch 09/09/18 10:00 09/16/18 11:16 Nicoderm Cq TD 1 patch DAILY DEANGELO Administration Nystatin 0 gm 09/08/18 18:00 09/16/18 11:22 Nystop Topical Powder TOP 1 pdr Q6 DEANGELO Administration Nystatin 0 ea 09/08/18 23:00 09/15/18 18:24 Mycostatin Cream TOP 1 unit TID DEANGELO Administration Ondansetron HCl 4 mg 09/08/18 14:22 Zofran Inj IVP Q4H PRN Nausea/Vomiting Pantoprazole Sodium 40 mg 09/11/18 06:00 09/16/18 05:50 Protonix Ec Tab PO 40 mg 0600,1600 DEANGELO Administration Polyethylene Glycol 17 gm 09/11/18 10:00 09/16/18 11:16 Miralax PO 17 gm BID DEANGELO Administration Prednisone 40 mg 09/16/18 10:00 09/16/18 11:16 Prednisone Tab PO 09/20/18 10:01 40 mg DAILY DEANGELO Administration - Patient Studies Lab Studies: Lab Studies 09/16/18 09/16/18 09/16/18 Range/Units 07:57 05:30 05:30 WBC (4.5-11.0) 10^3/uL RBC (3.5-6.1) 10^6/uL Hgb (12.0-16.0) g/dL Hct (36.0-48.0) % MCV (80.0-105.0) fl MCH (25.0-35.0) pg MCHC (31.0-37.0) g/dl RDW (11.5-14.5) % Plt Count (120.0-450.0) 10^3/uL MPV (7.0-11.0) fl Neut % (Auto) (50.0-68.0) % Lymph % (Auto) (22.0-35.0) % [place] % (Auto) (1.0-6.0) % Eos % (Auto) (1.5-5.0) % Baso % (Auto) (0.0-3.0) % Lymph # (Auto) (1.2-3.4) [place] # (Auto) (0.1-0.6) Eos # (Auto) (0.0-0.7) Baso # (Auto) (0.0-2.0) K/mm3 Absolute Neuts (auto) (1.4-6.5) Retic Count 1.88 H (0.5-1.5) % PT (9.4-12.5) SECONDS INR APTT (26.9-38.3) Seconds Sodium 135 (132-148) mmol/L Potassium 4.2 (3.6-5.0) mmol/L Chloride 98 (98-107) mmol/L Carbon Dioxide 37 H (21-33) mmol/L Anion Gap 5 L (10-20) BUN 38 H (7-21) mg/dL Creatinine 0.9 (0.7-1.2) mg/dl Est GFR ( Amer) > 60 Est GFR (Non-Af Amer) > 60 POC Glucose (mg/dL) 99 (65-110) mg/dL Random Glucose 92 (70-110) mg/dL Calcium 8.5 (8.4-10.5) mg/dL Phosphorus 3.1 (2.5-4.5) mg/dL Magnesium 2.0 (1.7-2.2) mg/dL Ferritin 108.0 ng/mL Total Bilirubin 0.8 (0.2-1.3) mg/dL Direct Bilirubin 0.3 (0.0-0.4) mg/dL AST 29 (14-36) U/L ALT 21 (7-56) U/L Alkaline Phosphatase 53 (38-126) U/L Total Creatine Kinase (35-230) U/L Total Protein 5.4 L (5.8-8.3) g/dL Albumin 2.7 L (3.0-4.8) g/dL Globulin 2.8 gm/dL Albumin/Globulin Ratio 1.0 L (1.1-1.8) Blood Type Antibody Screen Crossmatch BBK History Checked 09/16/18 09/16/18 09/15/18 Range/Units 05:30 05:30 21:14 WBC 8.7 D (4.5-11.0) 10^3/uL RBC 3.21 L (3.5-6.1) 10^6/uL Hgb 9.3 L (12.0-16.0) g/dL Hct 30.9 L (36.0-48.0) % MCV 96.3 D (80.0-105.0) fl MCH 29.0 (25.0-35.0) pg MCHC 30.1 L (31.0-37.0) g/dl RDW 15.2 H (11.5-14.5) % Plt Count 206 (120.0-450.0) 10^3/uL MPV 9.9 (7.0-11.0) fl Neut % (Auto) 81.9 H (50.0-68.0) % Lymph % (Auto) 7.6 L (22.0-35.0) % [place] % (Auto) 8.8 H (1.0-6.0) % Eos % (Auto) 1.7 (1.5-5.0) % Baso % (Auto) 0.0 (0.0-3.0) % Lymph # (Auto) 0.7 L (1.2-3.4) [place] # (Auto) 0.8 H (0.1-0.6) Eos # (Auto) 0.2 (0.0-0.7) Baso # (Auto) 0.00 (0.0-2.0) K/mm3 Absolute Neuts (auto) 7.08 H (1.4-6.5) Retic Count (0.5-1.5) % PT 11.3 (9.4-12.5) SECONDS INR 1.00 APTT 25.0 L (26.9-38.3) Seconds Sodium (132-148) mmol/L Potassium (3.6-5.0) mmol/L Chloride (98-107) mmol/L Carbon Dioxide (21-33) mmol/L Anion Gap (10-20) BUN (7-21) mg/dL Creatinine (0.7-1.2) mg/dl Est GFR ( Amer) Est GFR (Non-Af Amer) POC Glucose (mg/dL) 119 H (65-110) mg/dL Random Glucose (70-110) mg/dL Calcium (8.4-10.5) mg/dL Phosphorus (2.5-4.5) mg/dL Magnesium (1.7-2.2) mg/dL Ferritin ng/mL Total Bilirubin (0.2-1.3) mg/dL Direct Bilirubin (0.0-0.4) mg/dL AST (14-36) U/L ALT (7-56) U/L Alkaline Phosphatase (38-126) U/L Total Creatine Kinase (35-230) U/L Total Protein (5.8-8.3) g/dL Albumin (3.0-4.8) g/dL Globulin gm/dL Albumin/Globulin Ratio (1.1-1.8) Blood Type Antibody Screen Crossmatch BBK History Checked 09/15/18 09/15/18 09/15/18 Range/Units 17:35 17:01 16:45 WBC (4.5-11.0) 10^3/uL RBC (3.5-6.1) 10^6/uL Hgb 9.3 L (12.0-16.0) g/dL Hct 30.8 L (36.0-48.0) % MCV (80.0-105.0) fl MCH (25.0-35.0) pg MCHC (31.0-37.0) g/dl RDW (11.5-14.5) % Plt Count (120.0-450.0) 10^3/uL MPV (7.0-11.0) fl Neut % (Auto) (50.0-68.0) % Lymph % (Auto) (22.0-35.0) % [place] % (Auto) (1.0-6.0) % Eos % (Auto) (1.5-5.0) % Baso % (Auto) (0.0-3.0) % Lymph # (Auto) (1.2-3.4) [place] # (Auto) (0.1-0.6) Eos # (Auto) (0.0-0.7) Baso # (Auto) (0.0-2.0) K/mm3 Absolute Neuts (auto) (1.4-6.5) Retic Count (0.5-1.5) % PT (9.4-12.5) SECONDS INR APTT (26.9-38.3) Seconds Sodium (132-148) mmol/L Potassium (3.6-5.0) mmol/L Chloride (98-107) mmol/L Carbon Dioxide (21-33) mmol/L Anion Gap (10-20) BUN (7-21) mg/dL Creatinine (0.7-1.2) mg/dl Est GFR ( Amer) Est GFR (Non-Af Amer) POC Glucose (mg/dL) 147 H (65-110) mg/dL Random Glucose (70-110) mg/dL Calcium (8.4-10.5) mg/dL Phosphorus (2.5-4.5) mg/dL Magnesium (1.7-2.2) mg/dL Ferritin ng/mL Total Bilirubin (0.2-1.3) mg/dL Direct Bilirubin (0.0-0.4) mg/dL AST (14-36) U/L ALT (7-56) U/L Alkaline Phosphatase (38-126) U/L Total Creatine Kinase (35-230) U/L Total Protein (5.8-8.3) g/dL Albumin (3.0-4.8) g/dL Globulin gm/dL Albumin/Globulin Ratio (1.1-1.8) Blood Type O POSITIVE Antibody Screen Negative Crossmatch See Detail BBK History Checked Patient has bt 09/15/18 09/12/18 Range/Units 05:02 12:15 WBC (4.5-11.0) 10^3/uL RBC (3.5-6.1) 10^6/uL Hgb (12.0-16.0) g/dL Hct (36.0-48.0) % MCV (80.0-105.0) fl MCH (25.0-35.0) pg MCHC (31.0-37.0) g/dl RDW (11.5-14.5) % Plt Count (120.0-450.0) 10^3/uL MPV (7.0-11.0) fl Neut % (Auto) (50.0-68.0) % Lymph % (Auto) (22.0-35.0) % [place] % (Auto) (1.0-6.0) % Eos % (Auto) (1.5-5.0) % Baso % (Auto) (0.0-3.0) % Lymph # (Auto) (1.2-3.4) [place] # (Auto) (0.1-0.6) Eos # (Auto) (0.0-0.7) Baso # (Auto) (0.0-2.0) K/mm3 Absolute Neuts (auto) (1.4-6.5) Retic Count (0.5-1.5) % PT (9.4-12.5) SECONDS INR APTT (26.9-38.3) Seconds Sodium (132-148) mmol/L Potassium (3.6-5.0) mmol/L Chloride (98-107) mmol/L Carbon Dioxide (21-33) mmol/L Anion Gap (10-20) BUN (7-21) mg/dL Creatinine (0.7-1.2) mg/dl Est GFR ( Amer) Est GFR (Non-Af Amer) POC Glucose (mg/dL) (65-110) mg/dL Random Glucose (70-110) mg/dL Calcium (8.4-10.5) mg/dL Phosphorus (2.5-4.5) mg/dL Magnesium (1.7-2.2) mg/dL Ferritin ng/mL Total Bilirubin (0.2-1.3) mg/dL Direct Bilirubin (0.0-0.4) mg/dL AST (14-36) U/L ALT (7-56) U/L Alkaline Phosphatase (38-126) U/L Total Creatine Kinase 61 (35-230) U/L Total Protein (5.8-8.3) g/dL Albumin (3.0-4.8) g/dL Globulin gm/dL Albumin/Globulin Ratio (1.1-1.8) Blood Type O POSITIVE Antibody Screen Negative Crossmatch See Detail BBK History Checked No verified bt Laboratory Results - last 24 hr 09/12/18 09/15/18 09/15/18 12:15 05:02 16:45 WBC RBC Hgb Hct MCV MCH MCHC RDW Plt Count MPV Neut % (Auto) Lymph % (Auto) [place] % (Auto) Eos % (Auto) Baso % (Auto) Lymph # (Auto) [place] # (Auto) Eos # (Auto) Baso # (Auto) Absolute Neuts (auto) Retic Count PT INR APTT Sodium Potassium Chloride Carbon Dioxide Anion Gap BUN Creatinine Est GFR ( Amer) Est GFR (Non-Af Amer) POC Glucose (mg/dL) 147 H Random Glucose Calcium Phosphorus Magnesium Ferritin Total Bilirubin Direct Bilirubin AST ALT Alkaline Phosphatase Total Creatine Kinase 61 Total Protein Albumin Globulin Albumin/Globulin Ratio Blood Type O POSITIVE Antibody Screen Negative Crossmatch See Detail BBK History Checked No verified bt 09/15/18 09/15/18 09/15/18 17:01 17:35 21:14 WBC RBC Hgb 9.3 L Hct 30.8 L MCV MCH MCHC RDW Plt Count MPV Neut % (Auto) Lymph % (Auto) [place] % (Auto) Eos % (Auto) Baso % (Auto) Lymph # (Auto) [place] # (Auto) Eos # (Auto) Baso # (Auto) Absolute Neuts (auto) Retic Count PT INR APTT Sodium Potassium Chloride Carbon Dioxide Anion Gap BUN Creatinine Est GFR ( Amer) Est GFR (Non-Af Amer) POC Glucose (mg/dL) 119 H Random Glucose Calcium Phosphorus Magnesium Ferritin Total Bilirubin Direct Bilirubin AST ALT Alkaline Phosphatase Total Creatine Kinase Total Protein Albumin Globulin Albumin/Globulin Ratio Blood Type O POSITIVE Antibody Screen Negative Crossmatch See Detail BBK History Checked Patient has bt 09/16/18 09/16/18 09/16/18 05:30 05:30 05:30 WBC 8.7 D RBC 3.21 L Hgb 9.3 L Hct 30.9 L MCV 96.3 D MCH 29.0 MCHC 30.1 L RDW 15.2 H Plt Count 206 MPV 9.9 Neut % (Auto) 81.9 H Lymph % (Auto) 7.6 L [place] % (Auto) 8.8 H Eos % (Auto) 1.7 Baso % (Auto) 0.0 Lymph # (Auto) 0.7 L [place] # (Auto) 0.8 H Eos # (Auto) 0.2 Baso # (Auto) 0.00 Absolute Neuts (auto) 7.08 H Retic Count PT 11.3 INR 1.00 APTT 25.0 L Sodium 135 Potassium 4.2 Chloride 98 Carbon Dioxide 37 H Anion Gap 5 L BUN 38 H Creatinine 0.9 Est GFR ( Amer) > 60 Est GFR (Non-Af Amer) > 60 POC Glucose (mg/dL) Random Glucose 92 Calcium 8.5 Phosphorus 3.1 Magnesium 2.0 Ferritin 108.0 Total Bilirubin 0.8 Direct Bilirubin 0.3 AST 29 ALT 21 Alkaline Phosphatase 53 Total Creatine Kinase Total Protein 5.4 L Albumin 2.7 L Globulin 2.8 Albumin/Globulin Ratio 1.0 L Blood Type Antibody Screen Crossmatch BBK History Checked 09/16/18 09/16/18 05:30 07:57 WBC RBC Hgb Hct MCV MCH MCHC RDW Plt Count MPV Neut % (Auto) Lymph % (Auto) [place] % (Auto) Eos % (Auto) Baso % (Auto) Lymph # (Auto) [place] # (Auto) Eos # (Auto) Baso # (Auto) Absolute Neuts (auto) Retic Count 1.88 H PT INR APTT Sodium Potassium Chloride Carbon Dioxide Anion Gap BUN Creatinine Est GFR ( Amer) Est GFR (Non-Af Amer) POC Glucose (mg/dL) 99 Random Glucose Calcium Phosphorus Magnesium Ferritin Total Bilirubin Direct Bilirubin AST ALT Alkaline Phosphatase Total Creatine Kinase Total Protein Albumin Globulin Albumin/Globulin Ratio Blood Type Antibody Screen Crossmatch BBK History Checked Radiology Impressions: Radiology Impressions Lower Extremity CT 09/15/18 11:48 IMPRESSION: There is a large complex loculated hematoma in the left hamstring muscles measuring 24 cm in length and between 6 and 7 cm transversely. Interventional Vascular Procedure 09/15/18 12:30 IMPRESSION: 1. No evidence of IVC anomaly or thrombus. 2. Successful deployment of a retrievable filter in the infrarenal IVC at the level of L1. Critical Care Progress Note - Nutrition Nutrition: Nutrition Category Date Time Status Heart Healthy Diet [DIET] Diets 09/15/18 Dinner Active Assessment/Plan - Assessment and Plan (Free Text) Plan: Patient seen and examined on rounds with resident, agree with note with following additions/exceptions: Patient is n73yo female without known PMHx prior presentation, admitted with hyperpcanic, hypoxic resp failure, s/p extubation, PNA, and PE Pt was on Heparin, developed thigh hematoma, heparin stopped Repeat THIGH CT repeat, no change in size Pt received IVC filter Currently afebrile, HD stable, comfortable in NAD, doing well HH STABLE, 9.3, 9.3 Anemia PE Hematoma PNA Resp failure Hypoxia COPD Recommend: - supp o2 as needed, goal sat 90%, duonebs PRN, IS - Abx as per ID, cont Merrem, Doxy - BP control - monitor HH - Hold Heparin - IVC filter placed - follow up surgery, IR - GI ppx - DVT ppx - PT eval - stable, transfer to tele
--- NOTE | 2018-09-16 12:17 | PN ---
DATE: 09/16/2018 SUBJECTIVE: The patient is seen in ICU bed 3. The patient is lying in the bed. The patient is comfortable, the patient is in no distress. Overnight nurse's notes and events were reviewed. The patient underwent IVC filter placement.. She had a last night, a new stroke maybe. The patient underwent inferior vena cava filter placement. The patient denies any chest pain. Denies shortness of breath. The patient's constipation from yesterday has resolved. OBJECTIVE: Vital signs: T-max 99.3. Telemetry shows normal sinus rhythm, heart rate 70-73, blood pressure 126/43, average blood pressure in the last 24 hours systolic blood pressure averaging 110, diastolic in 50s and 60s, respiration 21-26, O2 sat 88%-96%. Intake 1145, output 1276. HEENT: The patient's head examination is normocephalic, atraumatic. HEENT examination shows pinkish pale conjunctiva, positive oxygen supplementation noted. NECK: No neck rigidity. CHEST: Kyphosis. LUNGS: Examination shows decreased breath sound at the bases. CARDIOVASCULAR: Examination S1, S2, regular rhythm. Positive systolic murmur left sternal border, right second intercostal space, left second intercostal space. ABDOMEN: Soft. Positive bowel sounds. Obese abdomen. No palpable hepatosplenomegaly. GENITALIA: Female. RECTAL: Examination deferred. EXTREMITIES: Positive left posterior thigh hematoma noted.. Pitting edema noted of the lower extremity. MUSCULOSKELETAL: Examination shows a body mass index of 40. NEUROLOGIC: The patient is alert, awake, responsive, is able to move upper and lower extremity without assistance. Gait examination is not tested. The patient does not have SCDs and OCHOA stockings on, despite my multiple orders. DIAGNOSTICS: On September 16, WBC 8.7, hemoglobin and hematocrit 9.3 and 31, platelet count 206. Granulocytes 82% segs, retic count 1.8. Chemistry showed sodium 135, potassium 4.2, chloride 98, CO2 of 37, anion gap 5, BUN 38, creatinine 0.9, GFR greater than 60, glucose 92, calcium 8.5, phosphorus 3.1, magnesium 2.0, total protein 5.4, albumin 2.7. Blood, urine MRSA, sputum cultures negative. The patient received 1 unit of PRBC and 2 units of FFP yesterday. IMPRESSION: 1. Status post ventilator-dependent respiratory failure. 2. Acute exacerbation of chronic obstructive pulmonary disease with hypoxemia. 3. Acute hypercapnic hypoxic respiratory failure. 4. Left posterior thigh large complex loculated hematoma of the left thigh and hamstring. 5. Hypotension. 6. Anemia. 7. Pulmonary embolism. 8. Status post inferior vena cava filter placement. 9. Cardiomyopathy with left ventricle ejection fraction of 39% with grade 1 abnormal relaxation pattern. 10. Moderate to severely reduced left ventricular systolic function. 11. Right ventricular dilatation and hypokinesis. 12. Right axis deviation. 13. Right . 14. coronary ischemia. 15. Chronic kidney disease stage III. 16. Metabolic alkalosis. 17. Sepsis. 20. Multilobar bibasilar pneumonia. 21. Leukocytosis with granulocytosis. 22. Status post erythrocytosis. 23. Acute blood loss anemia with decreasing hemoglobin/hematocrit probably secondary to left thigh hematoma. 24. Granulocytosis. 25. Elevated D-dimer of greater than 1600. 26. Hypoxemia and hypercarbia. 27. Acute hypercapnic respiratory failure with respiratory acidosis and hypercarbia. 28. Metabolic alkalosis. 29. Prerenal kidney injury. 30. Acute systolic congestive heart failure with elevated ProBNP. 31. Mild protein malnutrition and hypoalbuminemia. 32. Prerenal kidney injury. 33. Transient non-hemolyzed hyperkalemia. 34. Hyperuricemia. 35. Elevated C-reactive protein of greater than 15. 36. Possible acute [id number] myocardial infarction with inferolateral ischemic changes. 37. Hypovitaminosis D 38. Proteinuria, microscopic hematuria. 39. Status post packed red blood cell transfusion x1 and fresh frozen plasma transfusion x2. 40. Minimal right basilar pneumothorax, resolving. 41. Bibasilar atelectasis and multilobar pneumonia, right more than the left with bilateral pleural effusion, right more than the left. 42. Right hepatic lobe cyst. 43. Cholelithiasis with questionable cholecystitis. 44. Splenic cyst. 45. Atrophic right kidney. 46. Calcified uterine fibroids and lobulated fibroids. 47. Sigmoid diverticulosis. 48. Fecal stasis and constipation. 49. Infrarenal abdominal aortic ectasia. 50. Degenerative joint disease of the spine. 51. Bilateral lateral abdominal wall subcutaneous fat inflammatory changes, nonspecific, left more than the right. 52. Bilateral pleural effusion. 53. Questionable acute cholecystitis with occluded cystic duct on the HIDA scan. 54. Gait dysfunction. 55. Morbid obesity. 56. Cholelithiasis. 57. Constipation. 58. Hepatic steatosis and hepatic cyst. 59. Hepatomegaly. 60. Hepatic steatosis. 61. Right-sided pulmonary embolism. 62. Aberrant left subclavian artery with right-sided aortic arch. 63. Bibasilar atelectasis and bilateral pleural effusion. 64. Cardiomegaly. 65. Severe sepsis. 66. Status post ventilator-dependent respiratory failure. 67. Community-acquired pneumonia. 68. History of a nicotine dependence. 69. Chronic obstructive pulmonary disease. PLAN: At this time, the patient seen by Hematology. The patient seen by Surgery. The patient seen by Cardiology. The patient seen by Gastroenterology. The patient seen by Hematology/Oncology, Infectious Disease, Nephrology, Interventional Radiology and Podiatry. Current medications are Brovana 15 mcg every 12 hours, Drisdol 50,000 units weekly, DuoNeb nebulizer every 6 hours, sliding scale coverage high dose, MiraLax 17 g twice a day, nystatin cream, nicotine patch, prednisone 40 mg daily Protonix 40 daily GI prophylaxis, Pulmicort 0.5 mg nebulizer every 12 hours, Tylenol p.r.n., Zofran 4 IV every 4 hours p.r.n. and allopurinol 100 mg daily. The patient is on oxygen nasal cannula 3 liters which is ordered since yesterday. The patient is on heart-healthy diet. The patient has been ordered non-pharmacological deep vein thrombosis prophylaxis. The patient has been ordered out of bed, physical therapy, occupational therapy.. We will consider ordering one more unit of PRBC to a target hemoglobin of 10 and above because of persistent hematoma, which is large and complex. To keep a target hemoglobin of around 10 g... The patient's Lasix was discontinued by Cardiology, but that may need to be resumed in very near future since the patient is developing venous stasis and possible volume overload. After the patient is cleared by all subspecialty, especially Cardiology and surgery, the patient will be considered to be transfer out of the ICU. Possible discharge options LTAC. The patient updated about her condition, diagnosis, test results in layman's language on a daily basis. Time spent 35 minutes. Dictated and electronically signed, not read. Signing zenaida Law MD. Manuel Law MD
--- NOTE | 2018-09-16 12:43 | CP.PCM.PN ---
Subjective - Date & Time of Evaluation Date of Evaluation: 09/16/18 Time of Evaluation: 12:43 - Subjective Subjective: Nephrology Consultation Note: Assessment: stable likely CKD 3 with UA 30 prot. renal imaging atrophy scarring Rt kidney and eGFR in 50s COPD/sys CHF exacerbation with PNA, acute PE, DM and sepsis morbid obesity acute on chronic hypercapnic respi failure with renal compensation active smoker hyperkalemia vit d def cholelithiasis Plan No acute need for renal replacement therapy at this time. Hypertension control with meds as ordered. Maintain hemodynamics stable. Avoid hypotension. Patient not on ACEI or ARB at present, held for low bp. can give prn veltassa for elevated K Monitor Input/Output, daily weights and renal function with basic metabolic panel lasix resumed . d/c diamox added weekly vit D cardiology, pulmonary following Check urine spot protein/creatinine, albumin/creatinine ratio Dose meds/antibiotics for GFR >50 Glycemic control. once stable and acute process resolved, pt will need weight loss, smoking cessation, lifestyle modifications Further work up/management as per primary team Thanks for allowing me to participate in care of your patient. Will follow patient with you. Please call if any Qs. had d/w team Dr David Harrison Office: [phone] Chief Complaint; unable Reason for consult: Acute Kidney Injury HPI: Pt is a 73 F with hx of heavy smoking, no medical follow ups presented with complaints of SOB and respi distress intubated and admitted to ICU. foudn to have CHF exacerbation with PNA, PE, DM and sepsis renal consult for abnormal imaging and renal fxn eval Denies OTC/herbal meds or NSAIDs Noted recent iodinated contrast exposure as CTA. No obvious episodes of low BP. ROS: pt extubated on o2 via NC. feels better. Physical Examination: General Appearance: better appearing on O2 via NC. no acute distress, obese Vitals reviewed and noted as below Head; Atraumatic, normocephalic ENT: normal oral mucosa EYES: Pupils are equal, round and reactive to light accommodation. Eye muscles and extraocular movement intact. Sclera is anicteric. Neck; supple no lymphadenopathy, no thyromegaly or bruit Lungs: Normal respiratory rate/effort. Breath sounds bilateral reduced Heart: Normal rate. s1s2 normal. No rub or gallop. Extremities: trace edema. No varicose veins Neurological: Patient is awake alert follows commands Skin: Warm and dry. Normal turgor. No rash. Palpitation: Normal elasticity for age Abdomen: Abdomen is soft. Bowel sounds +. There is no abdominal tenderness, no guarding/rigidity no organomegaly Psych: limited insight. MSK: no joint tenderness or swelling. Digits and nails normal, no deformity : kidney or bladder not palpable. smith farrell Labs/imaging reviewed. Past medical history, past surgical history, family history, social history, allergy reviewed and noted as below Family hx: no hx of CKD. Rest non-contributory UA 30 prot. renal imaging atrophy scarring Rt kidney Objective - Vital Signs/Intake and Output Vital Signs (last 24 hours): Temp Pulse Resp BP Pulse Ox 99.3 F 73 22 126/43 L 22 L 09/16/18 00:00 09/16/18 06:00 09/16/18 05:00 09/16/18 00:00 09/16/18 00:00 Intake and Output: 09/16/18 09/16/18 06:59 18:59 Intake Total 250 Output Total 950 Balance -700 - Medications Medications: Current Medications Acetaminophen (Tylenol 325mg Tab) 650 mg PO Q6 PRN PRN Reason: TEMP>=99.5F Last Admin: 09/14/18 17:04 Dose: 650 mg Acetaminophen (Tylenol 650 Mg Supp) 650 mg RC Q6H PRN PRN Reason: TEMP>=99.5F Albuterol/Ipratropium (Duoneb 3 Mg/0.5 Mg (3 Ml) Ud) 3 ml IH [id number] [facility] Last Admin: 09/16/18 08:09 Dose: 3 ml Allopurinol (Zyloprim) 100 mg PO DAILY [facility] Last Admin: 09/16/18 11:20 Dose: 100 mg Arformoterol Tartrate (Brovana) 15 mcg IH [id number] [facility] Last Admin: 09/16/18 08:09 Dose: 15 mcg Budesonide (Pulmicort Respules) 0.5 mg IH [id number] [facility] Last Admin: 09/16/18 08:09 Dose: 0.5 mg Dextrose (Dextrose 50% Inj) 0 ml IV STAT PRN; Protocol PRN Reason: Hypoglycemia Protocol Ergocalciferol (Drisdol 50,000 Intl Units Cap) 1 cap PO Q7D [facility] Last Admin: 09/10/18 18:32 Dose: 1 cap Furosemide (Lasix) 40 mg IVP DAILY [facility] Dextrose (Dextrose 5% In Water 1000 Ml) 1,000 mls @ 0 mls/hr IV .Q0M PRN; Protocol PRN Reason: Hypoglycemia Protocol Insulin Human Lispro (Humalog High) 0 units SC ACHS SABIHA; Protocol Last Admin: 09/16/18 09:26 Dose: Not Given Lactic Acid (Lac-Hydrin 12% Cream (140 G)) 0 ea TOP DAILY [facility] Last Admin: 09/15/18 10:05 Dose: 1 applic Nicotine (Nicoderm Cq) 1 patch TD DAILY [facility] Last Admin: 09/16/18 11:16 Dose: 1 patch Nystatin (Nystop Topical Powder) 0 gm TOP Q6 [facility] Last Admin: 09/16/18 11:22 Dose: 1 pdr Nystatin (Mycostatin Cream) 0 ea TOP TID [facility] Last Admin: 09/15/18 18:24 Dose: 1 unit Ondansetron HCl (Zofran Inj) 4 mg IVP Q4H PRN PRN Reason: Nausea/Vomiting Pantoprazole Sodium (Protonix Ec Tab) 40 mg PO 0600,1600 [facility] Last Admin: 09/16/18 05:50 Dose: 40 mg Polyethylene Glycol (Miralax) 17 gm PO BID [facility] Last Admin: 09/16/18 11:16 Dose: 17 gm Prednisone (Prednisone Tab) 40 mg PO DAILY [facility] Stop: 09/20/18 10:01 Last Admin: 09/16/18 11:16 Dose: 40 mg - Labs Labs: 09/16/18 05:30 09/16/18 05:30 PT 11.3 SECONDS (9.4-12.5) 09/16/18 05:30 INR 1.00 09/16/18 05:30 APTT 25.0 Seconds (26.9-38.3) L 09/16/18 05:30
--- NOTE | 2018-09-16 13:03 | CP.PCM.APN ---
Subjective - Date & Time of Evaluation Date of Evaluation: 09/16/18 Time of Evaluation: 11:45 - Subjective Subjective: pt seen and examined at [facility], pt on high flow o2, pt pending 1 unit prbc transfusion per discussion with rn . pt deneis sob at this time , pt is dypsnic on exam Review of Systems - Respiratory Respiratory: Dyspnea Objective - Vital Signs/Intake and Output Vital Signs (last 24 hours): Temp Pulse Resp BP Pulse Ox 99.3 F 73 22 126/43 L 22 L 09/16/18 00:00 09/16/18 06:00 09/16/18 05:00 09/16/18 00:00 09/16/18 00:00 Intake and Output: 09/16/18 09/16/18 06:59 18:59 Intake Total 250 Output Total 950 Balance -700 - Medications Medications: Current Medications Acetaminophen (Tylenol 325mg Tab) 650 mg PO Q6 PRN PRN Reason: TEMP>=99.5F Last Admin: 09/14/18 17:04 Dose: 650 mg Acetaminophen (Tylenol 650 Mg Supp) 650 mg RC Q6H PRN PRN Reason: TEMP>=99.5F Albuterol/Ipratropium (Duoneb 3 Mg/0.5 Mg (3 Ml) Ud) 3 ml IH [id number] [facility] Last Admin: 09/16/18 08:09 Dose: 3 ml Allopurinol (Zyloprim) 100 mg PO DAILY [facility] Last Admin: 09/16/18 11:20 Dose: 100 mg Arformoterol Tartrate (Brovana) 15 mcg IH [id number] [facility] Last Admin: 09/16/18 08:09 Dose: 15 mcg Budesonide (Pulmicort Respules) 0.5 mg IH [id number] [facility] Last Admin: 09/16/18 08:09 Dose: 0.5 mg Dextrose (Dextrose 50% Inj) 0 ml IV STAT PRN; Protocol PRN Reason: Hypoglycemia Protocol Ergocalciferol (Drisdol 50,000 Intl Units Cap) 1 cap PO Q7D [facility] Last Admin: 09/10/18 18:32 Dose: 1 cap Furosemide (Lasix) 40 mg IVP DAILY [facility] Dextrose (Dextrose 5% In Water 1000 Ml) 1,000 mls @ 0 mls/hr IV .Q0M PRN; Protocol PRN Reason: Hypoglycemia Protocol Insulin Human Lispro (Humalog High) 0 units SC ACHS [facility]; Protocol Last Admin: 09/16/18 09:26 Dose: Not Given Lactic Acid (Lac-Hydrin 12% Cream (140 G)) 0 ea TOP DAILY [facility] Last Admin: 09/15/18 10:05 Dose: 1 applic Nicotine (Nicoderm Cq) 1 patch TD DAILY [facility] Last Admin: 09/16/18 11:16 Dose: 1 patch Nystatin (Nystop Topical Powder) 0 gm TOP Q6 [facility] Last Admin: 09/16/18 11:22 Dose: 1 pdr Nystatin (Mycostatin Cream) 0 ea TOP TID [facility] Last Admin: 09/15/18 18:24 Dose: 1 unit Ondansetron HCl (Zofran Inj) 4 mg IVP Q4H PRN PRN Reason: Nausea/Vomiting Pantoprazole Sodium (Protonix Ec Tab) 40 mg PO 0600,1600 [facility] Last Admin: 09/16/18 05:50 Dose: 40 mg Polyethylene Glycol (Miralax) 17 gm PO BID [facility] Last Admin: 09/16/18 11:16 Dose: 17 gm Prednisone (Prednisone Tab) 40 mg PO DAILY [facility] Stop: 09/20/18 10:01 Last Admin: 09/16/18 11:16 Dose: 40 mg - Labs Labs: 09/16/18 05:30 09/16/18 05:30 PT 11.3 SECONDS (9.4-12.5) 09/16/18 05:30 INR 1.00 09/16/18 05:30 APTT 25.0 Seconds (26.9-38.3) L 09/16/18 05:30 - Constitutional Appears: No Acute Distress - Eye Exam Eye Exam: Normal appearance - Respiratory Exam Respiratory Exam: Decreased Breath Sounds, Rales - Cardiovascular Exam Cardiovascular Exam: +S1, +S2 - Neurological Exam Neurological Exam: Alert, Awake, Oriented x3 - Skin Skin Exam: Dry, Intact Assessment and Plan - Assessment and Plan (Free Text) Plan: 73 yr old female admitted for AMS and resp distress s/p intubation and extubation found with pulmonary emboli within the distal right lower lobe branches and proximal right lower lobe segmental branches of the right lung being treated with iv heparin which was held due to right LE hematoma : Large posterior medial thigh hematoma with surgical consul tation on board. pt also with PNE/ vasc congestion as well as echo revelaing moderatle to severe lv dysfunction with RV hypokeneisis and strain due to PE s/p IV dobutamine with cardiology consultation, ckd with proteinuria with nepho follow up, abd wall cellulitis with ID consultation. pt is s/p ivc filter day #1, pt for blood transfusion today per discussion with pmd, pt still desaturating , hypoxic, remains on high flow o2 despite wean attempts - unsuccessful pt not medically ready for transfer to next level of care per Dr Law...will continue to follow clinical course IDT notes reviewed with PMD. will continue to monitor and discuss plan of care with pmd and consultants. Marycarmen Hughes, NISHI, SENIOR TECHNOLOGIST BPCI/TIC - BPCIA/TIC Educated pt/family on BPCIA/CIR/Med to Bed Programs: N/A Flyers given, including [facility] Beneficiary letter: N/A Pt/family verbalized understanding & agreed to program: N/A
--- NOTE | 2018-09-16 14:03 | CP.PCM.PN ---
Subjective - Date & Time of Evaluation Date of Evaluation: 09/16/18 Time of Evaluation: 06:30 - Subjective Subjective: Patient seen and examined. No acute events over night. Posterior left thigh hematoma stable. Objective - Vital Signs/Intake and Output Vital Signs (last 24 hours): Temp Pulse Resp BP Pulse Ox 99.3 F 73 22 126/43 L 22 L 09/16/18 00:00 09/16/18 06:00 09/16/18 05:00 09/16/18 00:00 09/16/18 00:00 Intake and Output: 09/16/18 09/16/18 06:59 18:59 Intake Total 250 Output Total 950 Balance -700 - Medications Medications: Current Medications Acetaminophen (Tylenol 325mg Tab) 650 mg PO Q6 PRN PRN Reason: TEMP>=99.5F Last Admin: 09/14/18 17:04 Dose: 650 mg Acetaminophen (Tylenol 650 Mg Supp) 650 mg RC Q6H PRN PRN Reason: TEMP>=99.5F Albuterol/Ipratropium (Duoneb 3 Mg/0.5 Mg (3 Ml) Ud) 3 ml IH [id number] [facility] Last Admin: 09/16/18 13:30 Dose: 3 ml Allopurinol (Zyloprim) 100 mg PO DAILY [facility] Last Admin: 09/16/18 11:20 Dose: 100 mg Arformoterol Tartrate (Brovana) 15 mcg IH [id number] [facility] Last Admin: 09/16/18 08:09 Dose: 15 mcg Budesonide (Pulmicort Respules) 0.5 mg IH [id number] [facility] Last Admin: 09/16/18 08:09 Dose: 0.5 mg Dextrose (Dextrose 50% Inj) 0 ml IV STAT PRN; Protocol PRN Reason: Hypoglycemia Protocol Ergocalciferol (Drisdol 50,000 Intl Units Cap) 1 cap PO Q7D [facility] Last Admin: 09/10/18 18:32 Dose: 1 cap Furosemide (Lasix) 40 mg IVP DAILY [facility] Dextrose (Dextrose 5% In Water 1000 Ml) 1,000 mls @ 0 mls/hr IV .Q0M PRN; Protocol PRN Reason: Hypoglycemia Protocol Insulin Human Lispro (Humalog High) 0 units SC ACHS [facility]; Protocol Last Admin: 09/16/18 09:26 Dose: Not Given Lactic Acid (Lac-Hydrin 12% Cream (140 G)) 0 ea TOP DAILY [facility] Last Admin: 09/15/18 10:05 Dose: 1 applic Nicotine (Nicoderm Cq) 1 patch TD DAILY [facility] Last Admin: 09/16/18 11:16 Dose: 1 patch Nystatin (Nystop Topical Powder) 0 gm TOP Q6 [facility] Last Admin: 09/16/18 11:22 Dose: 1 pdr Nystatin (Mycostatin Cream) 0 ea TOP TID [facility] Last Admin: 09/15/18 18:24 Dose: 1 unit Ondansetron HCl (Zofran Inj) 4 mg IVP Q4H PRN PRN Reason: Nausea/Vomiting Pantoprazole Sodium (Protonix Ec Tab) 40 mg PO 0600,1600 [facility] Last Admin: 09/16/18 05:50 Dose: 40 mg Polyethylene Glycol (Miralax) 17 gm PO BID [facility] Last Admin: 09/16/18 11:16 Dose: 17 gm Prednisone (Prednisone Tab) 40 mg PO DAILY [facility] Stop: 09/20/18 10:01 Last Admin: 09/16/18 11:16 Dose: 40 mg - Labs Labs: 09/16/18 05:30 09/16/18 05:30 PT 11.3 SECONDS (9.4-12.5) 09/16/18 05:30 INR 1.00 09/16/18 05:30 APTT 25.0 Seconds (26.9-38.3) L 09/16/18 05:30 - Constitutional Appears: No Acute Distress - Head Exam Head Exam: NORMOCEPHALIC - ENT Exam ENT Exam: Mucous Membranes Moist - Respiratory Exam Respiratory Exam: NORMAL BREATHING PATTERN - Cardiovascular Exam Cardiovascular Exam: +S1, +S2. absent: Tachycardia - GI/Abdominal Exam GI & Abdominal Exam: Soft - Extremities Exam Additional comments: left thigh hematoma +DP pulse - Neurological Exam Neurological Exam: Alert, Awake - Psychiatric Exam Psychiatric exam: Normal Mood - Skin Skin Exam: Dry, Intact, Warm Assessment and Plan - Assessment and Plan (Free Text) Assessment: 73F in ICU for treatment of pulmonary embolism s/p IVC filter placement now w/ LLE hematoma Plan: Monitor H/H Hgb stable maintain HgB at cardiac levels as per ICU, primary, cardiology cont to hold heparin drip LLE compartment is soft, most likely resolving hematoma from posterior thigh or gluteal bleed Neurovascular checks No plans for acute surgical intervention at this present time Further recs per Dr. Cuco Bennett PGY3
[2018-09-16 15:53] LABS: FOLATE 5.7 ng/mL
--- NOTE | 2018-09-16 15:56 | CP.PCM.PN ---
<Ketan Shrestha - Last Filed: 09/16/18 15:48> Subjective - Date & Time of Evaluation Date of Evaluation: 09/16/18 Time of Evaluation: 09:05 - Subjective Subjective: Ketan Shrestha D.O. PGY-3, Internal Medicine Resident, Infectious Disease Progress Note 73 year old female with a PMH of COPD and tobacco abuse who presented to [facility] on 09/08/18 after she was found by her family members laying in her couch for about 3 days. Infectious disease consultation was requested for severe sepsis. Patient was seen and examined at bedside. No acute complaints at this time. Had IVC placed due to thigh hematoma. Objective - Vital Signs/Intake and Output Vital Signs (last 24 hours): Temp Pulse Resp BP Pulse Ox 98.4 F 73 16 108/47 L 22 L 09/16/18 14:29 09/16/18 14:29 09/16/18 14:29 09/16/18 14:29 09/16/18 00:00 Intake and Output: 09/16/18 09/16/18 06:59 18:59 Intake Total 250 0 Output Total 950 Balance -700 0 - Medications Medications: Current Medications Acetaminophen (Tylenol 325mg Tab) 650 mg PO Q6 PRN PRN Reason: TEMP>=99.5F Last Admin: 09/14/18 17:04 Dose: 650 mg Acetaminophen (Tylenol 650 Mg Supp) 650 mg RC Q6H PRN PRN Reason: TEMP>=99.5F Albuterol/Ipratropium (Duoneb 3 Mg/0.5 Mg (3 Ml) Ud) 3 ml IH [id number] [facility] Last Admin: 09/16/18 13:30 Dose: 3 ml Allopurinol (Zyloprim) 100 mg PO DAILY [facility] Last Admin: 09/16/18 11:20 Dose: 100 mg Arformoterol Tartrate (Brovana) 15 mcg IH [id number] [facility] Last Admin: 09/16/18 08:09 Dose: 15 mcg Budesonide (Pulmicort Respules) 0.5 mg IH [id number] [facility] Last Admin: 09/16/18 08:09 Dose: 0.5 mg Dextrose (Dextrose 50% Inj) 0 ml IV STAT PRN; Protocol PRN Reason: Hypoglycemia Protocol Ergocalciferol (Drisdol 50,000 Intl Units Cap) 1 cap PO Q7D [facility] Last Admin: 09/10/18 18:32 Dose: 1 cap Furosemide (Lasix) 40 mg IVP DAILY [facility] Dextrose (Dextrose 5% In Water 1000 Ml) 1,000 mls @ 0 mls/hr IV .Q0M PRN; Protocol PRN Reason: Hypoglycemia Protocol Insulin Human Lispro (Humalog High) 0 units SC ACHS [facility]; Protocol Last Admin: 09/16/18 09:26 Dose: Not Given Lactic Acid (Lac-Hydrin 12% Cream (140 G)) 0 ea TOP DAILY [facility] Last Admin: 09/15/18 10:05 Dose: 1 applic Nicotine (Nicoderm Cq) 1 patch TD DAILY [facility] Last Admin: 09/16/18 11:16 Dose: 1 patch Nystatin (Nystop Topical Powder) 0 gm TOP Q6 [facility] Last Admin: 09/16/18 11:22 Dose: 1 pdr Nystatin (Mycostatin Cream) 0 ea TOP TID [facility] Last Admin: 09/15/18 18:24 Dose: 1 unit Ondansetron HCl (Zofran Inj) 4 mg IVP Q4H PRN PRN Reason: Nausea/Vomiting Pantoprazole Sodium (Protonix Ec Tab) 40 mg PO 0600,1600 [facility] Last Admin: 09/16/18 05:50 Dose: 40 mg Polyethylene Glycol (Miralax) 17 gm PO BID [facility] Last Admin: 09/16/18 11:16 Dose: 17 gm Prednisone (Prednisone Tab) 40 mg PO DAILY [facility] Stop: 09/20/18 10:01 Last Admin: 09/16/18 11:16 Dose: 40 mg - Labs Labs: 09/16/18 05:30 09/16/18 05:30 PT 11.3 SECONDS (9.4-12.5) 09/16/18 05:30 INR 1.00 09/16/18 05:30 APTT 25.0 Seconds (26.9-38.3) L 09/16/18 05:30 - Constitutional Appears: Chronically Ill, obese elderly female - Head Exam Head Exam: ATRAUMATIC, NORMOCEPHALIC - Eye Exam Eye Exam: EOMI. absent: Scleral icterus - ENT Exam ENT Exam: Mucous Membranes Moist - Neck Exam Additional comments: obese, soft - Respiratory Exam Respiratory Exam: Decreased breath sounds - Cardiovascular Exam Cardiovascular Exam: RRR, +S1, +S2 - GI/Abdominal Exam GI & Abdominal Exam: Soft, NT - Extremities Exam Additional comments: chronic stasis changes - Neurological Exam Additional comments: Awake, Alert, Orientedx3 - Skin Skin Exam: Dry, Warm Assessment and Plan - Assessment and Plan (Free Text) Assessment: 73 year old female with a PMH of COPD and tobacco abuse who presented to [facility] on 09/08/18 after she was found by her family members laying in her couch for about 3 days. Infectious disease consultation was requested for severe sepsis. Plan: Severe sepsis Acute respiratory failure requiring intubation, now exubated Pulmonary embolism Right and left ventricular dysfunction CAP - finished treatment Pleural effusions Afebile No leukocytosis Monitoring off abx At risk for nosocomial infections We will follow with you Patient was seen and examined and case to be discussed with attending physician. Thank you for the pleasure of participating in the care of this interesting patient. <Agapito Rojo - Last Filed: 09/16/18 16:11> Objective - Vital Signs/Intake and Output Vital Signs (last 24 hours): Temp Pulse Resp BP Pulse Ox 98.4 F 73 16 108/47 L 22 L 09/16/18 14:29 09/16/18 14:29 09/16/18 14:29 09/16/18 14:29 09/16/18 00:00 Intake and Output: 09/16/18 09/16/18 06:59 18:59 Intake Total 250 0 Output Total 950 Balance -700 0 - Medications Medications: Current Medications Acetaminophen (Tylenol 325mg Tab) 650 mg PO Q6 PRN PRN Reason: TEMP>=99.5F Last Admin: 09/14/18 17:04 Dose: 650 mg Acetaminophen (Tylenol 650 Mg Supp) 650 mg RC Q6H PRN PRN Reason: TEMP>=99.5F Albuterol/Ipratropium (Duoneb 3 Mg/0.5 Mg (3 Ml) Ud) 3 ml IH [id number] [facility] Last Admin: 09/16/18 13:30 Dose: 3 ml Allopurinol (Zyloprim) 100 mg PO DAILY [facility] Last Admin: 09/16/18 11:20 Dose: 100 mg Arformoterol Tartrate (Brovana) 15 mcg IH [id number] [facility] Last Admin: 09/16/18 08:09 Dose: 15 mcg Budesonide (Pulmicort Respules) 0.5 mg IH [id number] [facility] Last Admin: 09/16/18 08:09 Dose: 0.5 mg Dextrose (Dextrose 50% Inj) 0 ml IV STAT PRN; Protocol PRN Reason: Hypoglycemia Protocol Ergocalciferol (Drisdol 50,000 Intl Units Cap) 1 cap PO Q7D [facility] Last Admin: 09/10/18 18:32 Dose: 1 cap Furosemide (Lasix) 40 mg IVP DAILY [facility] Dextrose (Dextrose 5% In Water 1000 Ml) 1,000 mls @ 0 mls/hr IV .Q0M PRN; Protocol PRN Reason: Hypoglycemia Protocol Insulin Human Lispro (Humalog High) 0 units SC ACHS [facility]; Protocol Last Admin: 09/16/18 09:26 Dose: Not Given Lactic Acid (Lac-Hydrin 12% Cream (140 G)) 0 ea TOP DAILY [facility] Last Admin: 09/15/18 10:05 Dose: 1 applic Nicotine (Nicoderm Cq) 1 patch TD DAILY [facility] Last Admin: 09/16/18 11:16 Dose: 1 patch Nystatin (Nystop Topical Powder) 0 gm TOP Q6 [facility] Last Admin: 09/16/18 11:22 Dose: 1 pdr Nystatin (Mycostatin Cream) 0 ea TOP TID [facility] Last Admin: 09/15/18 18:24 Dose: 1 unit Ondansetron HCl (Zofran Inj) 4 mg IVP Q4H PRN PRN Reason: Nausea/Vomiting Pantoprazole Sodium (Protonix Ec Tab) 40 mg PO 0600,1600 [facility] Last Admin: 09/16/18 05:50 Dose: 40 mg Polyethylene Glycol (Miralax) 17 gm PO BID [facility] Last Admin: 09/16/18 11:16 Dose: 17 gm Prednisone (Prednisone Tab) 40 mg PO DAILY [facility] Stop: 09/20/18 10:01 Last Admin: 09/16/18 11:16 Dose: 40 mg - Labs Labs: 09/16/18 05:30 09/16/18 05:30 PT 11.3 SECONDS (9.4-12.5) 09/16/18 05:30 INR 1.00 09/16/18 05:30 APTT 25.0 Seconds (26.9-38.3) L 09/16/18 05:30 Attending/Attestation - Attestation I have personally seen and examined this patient.: Yes I have fully participated in the care of the patient.: Yes I have reviewed all pertinent clinical information, including history, physical exam and plan: Yes
--- NOTE | 2018-09-16 16:36 | PN ---
DATE: 09/16/2018 CARDIOLOGY FOLLOWUP SUBJECTIVE: The patient remained off of ventilator. PHYSICAL EXAMINATION: VITAL SIGNS: Blood pressure is 126/43 and heart rate 70. NECK: Negative JVD. LUNGS: Decreased breath sounds. HEART: Reveals S1 and S2. EXTREMITIES: Without edema. LABORATORY DATA: Hemoglobin is 9.3. Chemistry: BUN and creatinine is unremarkable. IMPRESSION: 1. Status post respiratory failure. 2. History of pulmonary embolism. 3. Severe chronic obstructive pulmonary disease. 4. Cardiomyopathy. 5. Segmental wall motion abnormalities, suggestive of coronary artery disease. Given these findings, there is no acute ischemic symptoms at this time. We will continue the patient on anticoagulation. Nick Rowley MD
[2018-09-17] MEDS: Albuterol-Ipratrop 3 mg / 0.5 (3 ml) UD IH SCH ×4 (01:11→20:28)
[2018-09-17] MEDS: Nystatin 100,000 Units/gm Topical Pow(15 gm) TOP SCH ×3 (05:42→18:11)
[2018-09-17] MEDS: Pantoprazole 40 mg EC Tab PO SCH ×2 (06:41→15:57)
[2018-09-17 06:51] LABS: EOS # 0.1 (0.0-0.7); EOS % 0.6 % (1.5-5.0); HEMOGLOBIN 9.4 g/dL (12.0-16.0); LYMPH # 0.7 (1.2-3.4); LYMPH % 6.8 % (22.0-35.0); MEAN CELL VOLUME 93.9 fl (80.0-105.0); MEAN CORPUSCULAR HEMOGLOBIN 28.5 pg (25.0-35.0); MEAN CORPUSCULAR HGB CONC 30.3 g/dl (31.0-37.0); MEAN PLATELET VOLUME 9.9 fl (7.0-11.0); MONO # 0.8 (0.1-0.6); MONO % 8.4 % (1.0-6.0); RBC 3.3 10^6/uL (3.5-6.1); WHITE BLOOD COUNT 9.7 10^3/uL (4.5-11.0)
[2018-09-17 06:57] LABS: INR 1.03; PARTIAL THROMBOPLASTIN TIME 24.6 Seconds (26.9-38.3); PROTHROMBIN TIME 11.6 SECONDS (9.4-12.5)
[2018-09-17 07:30] LABS: ALB/GLOB RATIO 0.9 (1.1-1.8); ALBUMIN 2.5 g/dL (3.0-4.8); ALT/SGPT 12 U/L (7-56); AST/SGOT 25 U/L (14-36); BILIRUBIN,DIRECT 0.2 mg/dL (0.0-0.4); BLOOD UREA NITROGEN 31 mg/dL (7-21); CALCIUM 8.5 mg/dL (8.4-10.5); GFR NON-AFRICAN AMERICAN > 60
[2018-09-17] MEDS: Insulin Lispro (HUMAlog) HIGH Coverage SC SCH ×4 (07:38→22:23)
[2018-09-17] MEDS: Arformoterol 15 mcg/2 ml Inh Sol IH SCH ×2 (07:41→20:28)
[2018-09-17] MEDS: Budesonide 0.5 mg/2 ml Inhal Susp UD IH SCH ×2 (07:42→20:28)
--- NOTE | 2018-09-17 08:09 | CP.PCM.PN ---
Subjective - Date & Time of Evaluation Date of Evaluation: 09/17/18 Time of Evaluation: 07:30 - Subjective Subjective: (covering for Dr. Law) Patient is seen this morning in the intensive care unit bed 3. She is awake and alert and receiving high flow oxygen. She says she is feeling a litttle better each day. Objective - Vital Signs/Intake and Output Vital Signs (last 24 hours): Temp Pulse Resp BP Pulse Ox 98.4 F 87 25 H 123/62 91 L 09/17/18 06:00 09/17/18 06:00 09/17/18 06:00 09/17/18 06:00 09/17/18 06:00 - Medications Medications: Current Medications Acetaminophen (Tylenol 325mg Tab) 650 mg PO Q6 PRN PRN Reason: TEMP>=99.5F Last Admin: 09/14/18 17:04 Dose: 650 mg Acetaminophen (Tylenol 650 Mg Supp) 650 mg RC Q6H PRN PRN Reason: TEMP>=99.5F Albuterol/Ipratropium (Duoneb 3 Mg/0.5 Mg (3 Ml) Ud) 3 ml IH [id number] [facility] Last Admin: 09/17/18 07:41 Dose: 3 ml Allopurinol (Zyloprim) 100 mg PO DAILY [facility] Last Admin: 09/16/18 11:20 Dose: 100 mg Arformoterol Tartrate (Brovana) 15 mcg IH [id number] [facility] Last Admin: 09/17/18 07:41 Dose: 15 mcg Budesonide (Pulmicort Respules) 0.5 mg IH [id number] [facility] Last Admin: 09/17/18 07:42 Dose: 0.5 mg Dextrose (Dextrose 50% Inj) 0 ml IV STAT PRN; Protocol PRN Reason: Hypoglycemia Protocol Ergocalciferol (Drisdol 50,000 Intl Units Cap) 1 cap PO Q7D [facility] Last Admin: 09/10/18 18:32 Dose: 1 cap Furosemide (Lasix) 40 mg IVP DAILY [facility] Dextrose (Dextrose 5% In Water 1000 Ml) 1,000 mls @ 0 mls/hr IV .Q0M PRN; Protocol PRN Reason: Hypoglycemia Protocol Insulin Human Lispro (Humalog High) 0 units SC ACHS [facility]; Protocol Last Admin: 03/20/19 07:38 Dose: Not Given Lactic Acid (Lac-Hydrin 12% Cream (140 G)) 0 ea TOP DAILY [facility] Last Admin: 09/15/18 10:05 Dose: 1 applic Nicotine (Nicoderm Cq) 1 patch TD DAILY [facility] Last Admin: 09/16/18 11:16 Dose: 1 patch Nystatin (Nystop Topical Powder) 0 gm TOP Q6 [facility] Last Admin: 09/17/18 05:42 Dose: 2 pdr Nystatin (Mycostatin Cream) 0 ea TOP TID [facility] Last Admin: 09/16/18 19:38 Dose: 1 unit Ondansetron HCl (Zofran Inj) 4 mg IVP Q4H PRN PRN Reason: Nausea/Vomiting Pantoprazole Sodium (Protonix Ec Tab) 40 mg PO 0600,1600 [facility] Last Admin: 09/17/18 06:41 Dose: 40 mg Polyethylene Glycol (Miralax) 17 gm PO BID [facility] Last Admin: 09/16/18 19:32 Dose: 17 gm Prednisone (Prednisone Tab) 40 mg PO DAILY [facility] Stop: 09/20/18 10:01 Last Admin: 09/16/18 11:16 Dose: 40 mg - Labs Labs: 09/17/18 05:30 09/17/18 05:30 PT 11.6 SECONDS (9.4-12.5) 09/17/18 05:30 INR 1.03 09/17/18 05:30 APTT 24.6 Seconds (26.9-38.3) L 09/17/18 05:30 - Constitutional Appears: No Acute Distress - Head Exam Head Exam: ATRAUMATIC, NORMOCEPHALIC - Respiratory Exam Respiratory Exam: Clear to Ausculation Bilateral - Cardiovascular Exam Cardiovascular Exam: +S1, +S2 - GI/Abdominal Exam GI & Abdominal Exam: Soft, Normal Bowel Sounds. absent: Tenderness - Extremities Exam Additional comments: BL SCDs - Neurological Exam Neurological Exam: Alert, Awake, Oriented x3 Assessment and Plan - Assessment and Plan (Free Text) Assessment: s/p VDRF Pulmonary Embolism s/p IVC filter Left posterior medial thigh hematoma COPD Smoker Cardiomyopathy with EF 39% Plan: Patient appears to be improving although she is on high flow oxygen. continue respiratory treatments, Brovana and Pulmicort and prednisone continue IV Lasix as per cardiology Patient off anticoagulation due to large hematoma of left thigh. continue to monitor hematoma.
[2018-09-17] MEDS: POLYETHYLENE GLYCOL 3350 17 GM/Dose PACKET PO SCH ×2 (09:21→18:11)
[2018-09-17] MEDS: MethylPREDNISolone 40 mg Vial IVP SCH ×2 (09:22→18:12)
[2018-09-17] MEDS: Nystatin 100,000 Units/gm Cream(15 gm) TOP SCH ×3 (09:26→18:10)
[2018-09-17] MEDS: Ammonium Lactate 12% Cream (140 g) TOP SCH (09:26)
--- NOTE | 2018-09-17 09:35 | RAD ---
Date of service: 09/17/2018 HISTORY: follow up COMPARISON: 09/11/2018 FINDINGS: LUNGS: Right lower lobe infiltrate and effusion PLEURA: Small right effusion CARDIOVASCULAR: Right-sided aortic arch with calcification Moderate cardiomegaly. No pulmonary vascular congestion. OSSEOUS STRUCTURES: No significant abnormalities. VISUALIZED UPPER ABDOMEN: Normal. OTHER FINDINGS: None. IMPRESSION: Right lower lobe infiltrate and effusion
--- NOTE | 2018-09-17 10:04 | CON ---
DATE OF CONSULTATION: 09/17/2018 PULMONARY CONSULTATION REASON FOR PULMONARY CONSULTATION: Severe chronic obstructive pulmonary disease. REFERRING PHYSICIAN FOR THIS PULMONARY CONSULTATION: Dr. Gordon. SOURCE OF HISTORY: History is obtained via extensive discussion with the ICU nurse. I have also reviewed the chart at length, and discussed the case with the patient at length. HISTORY OF PRESENT ILLNESS: The patient is a 73-year-old female, with past medical history significant for probable advanced chronic obstructive pulmonary disease (positive extensive smoking history for almost 60 years), who presented to [facility] - originally on 09/08/2018 - in respiratory distress. Apparently, the patient was found by her family members-- to be short of breath. She was also found to be lethargic. The family then called 911. When the medics got there, the patient had extremely low oxygen saturations. She was then placed on CPAP and transported to [facility]. In the emergency room, the patient was noted to be obtunded. She was thus intubated for airway protection and ventilation. Again, I did discuss the case with the ICU nurse at length. CT scan of the chest was done on 09/08/2018. That CT scan did show a right lower lobe pulmonary embolism. The patient was then started on anticoagulation. The patient was also started on treatment for her chronic obstructive pulmonary disease. The patient was subsequently extubated on 09/10/2018. She was transitioned to high-flow oxygen delivery. I am thus asked to evaluate on this case for additional management and treatment. The patient is not short of breath at rest. She does state to chronic dyspnea on exertion. She also states to an occasional cough, with occasional sputum production. There is no history of chest pain, coughing up of blood, or chest pain - brought on with deep respirations. There have been no recent temperatures, chills, or infectious exposure. There is no history of night sweats, weight loss or appetite change prior to the above events. No history of calf pains. No history of syncope or diaphoresis. No history of recent travel or trauma. REVIEW OF SYSTEMS: No history of nausea, vomiting, or diarrhea. No acute urinary symptoms. No new neurologic complaints. Rest of the review of systems is negative. ALLERGIES: NO KNOWN ALLERGIES. SOCIAL HISTORY: Positive for extensive tobacco usage - xdx-vss-[id number]-half to two packs per day since the age of 15. No alcohol. FAMILY HISTORY: No inheritable diseases. HOME MEDICATIONS: Listed as none. PHYSICAL EXAMINATION: GENERAL: The patient appears comfortable this morning. She is not short of breath at rest. VITAL SIGNS: Temperature is 98.4, pulse 87, respirations 20, blood pressure 123/62. Oxygen saturation on high-flow delivery is 92%. HEENT: Normocephalic, atraumatic. NECK: No JVD. CARDIOVASCULAR: Systolic ejection murmur at the lower left sternal border. Questionable S3 gallop. LUNGS: Decreased breath sounds at the bases. Mild bilateral rhonchi and wheezing are appreciated. EXTREMITIES: Positive for edema. No cyanosis or clubbing. Calves are nontender to palpation. The left thigh is wrapped. GI: Abdomen is soft, nontender and nondistended. Bowel sounds are positive. SKIN: No acute rash. NEUROLOGIC: Exam limited at the present time. PERTINENT LABORATORY DATA: Chest x-ray was done this morning and reviewed. There are minimal bibasilar changes noted. The chest x-ray is improved from previous films. The last arterial blood gas was done on 09/12/2018. It was done on 60% oxygen. Results are: PH 7.42, pCO2 of 63, pO2 of 64. CBC: White count 9.7K, hemoglobin 9.4, hematocrit 31, platelets of 221,000. Complete metabolic profile: BUN 31, total protein 5.3, albumin 2.5. Rest of the metabolic profile is within normal limits. B-type natriuretic peptide done on 09/13/2018 - 1330. Echocardiogram was also done on 09/09/2018. The systolic function of the left ventricle is moderately to severely impaired. There are also some wall motion abnormalities. As above, CT scan of the chest was done on 09/08/2018. There is a right lower lobe pulmonary embolism seen. There are minimal bibasilar atelectatic changes. IMPRESSION: 1. Advanced chronic obstructive pulmonary disease. 2. Moderate bronchospasm. 3. Status post respiratory failure. 4. Right lower lobe pulmonary embolism. 5. Cardiomyopathy. 6. Anemia. 7. Left thigh hematoma. PLAN: Again, I did discuss the case with the ICU nurse at length. I have also reviewed the chart at length, and discussed the case with the patient at length. The patient did present to [facility] - originally on 09/08/2018 - in respiratory failure. She was intubated in the emergency room. As above, CT scan of the chest revealed a right lower lobe pulmonary embolism. The patient was started on treatment for her pulmonary embolism, as well as her chronic obstructive pulmonary disease. She did do well, and was subsequently extubated. Because of her left thigh hematoma, the patient did receive an inferior vena caval filter. I did review the chest x-ray from this morning. The chest x-ray shows minimal bibasilar changes. The chest x-ray is significantly improved from previous films. I have also reviewed the last arterial blood gas done. The arterial blood gas reveals a normal pH, but with CO2 retention - indicating that the patient has chronic severe pulmonary disease . On physical exam, moderate bronchospasm is noted. I will continue the current nebulizer treatments for now. However, I will change the patient back to intravenous steroids for the time being. Inputs by Infectious Disease and Cardiology are also noted. Clinical status of the patient is significantly improved - compared to the initial presentation. However, given the above, the future status/prognosis for this patient remains very guarded. I will discuss the above with the entire ICU team in the next few moments. I will also discuss the above with the attending physician later this morning. Thank you very much for this pulmonary consultation. Andrae Rajput MD MTDKenji
--- NOTE | 2018-09-17 11:12 | CP.PCM.PCO ---
Physician Communication Note - Physician Communication Note Physician Communication Note: pulm consult noted, iv steriods resumed
--- NOTE | 2018-09-17 13:15 | PN ---
DATE: 09/17/2018 CARDIOLOGY FOLLOWUP SUBJECTIVE: The patient is in a chair without shortness of breath. PHYSICAL EXAMINATION VITAL SIGNS: Blood pressure 118/56 and heart rates in the 80s. NECK: Negative JVD. LUNGS: No rales noted. HEART: Reveals S1 and S2. EXTREMITIES: Without change. The patient is status post IVC filter. LABORATORY DATA: Hemoglobin is 9.4. Chemistries, BUN and creatinine of 31 and 0.8. IMPRESSION 1. Respiratory failure. 2. Severe chronic obstructive pulmonary disease. 3. Status post pulmonary embolism. 4. Dyspnea. 5. Nicotine addiction. 6. Cardiomyopathy. Given these findings, I have discussed with the patient about the need to rule out significant coronary artery disease once her respiratory status has improved. Nick Rowley MD
--- NOTE | 2018-09-17 14:19 | CP.PCM.PN ---
<Ketan Shrestha - Last Filed: 09/17/18 14:16> Subjective - Date & Time of Evaluation Date of Evaluation: 09/17/18 Time of Evaluation: 10:05 - Subjective Subjective: Ketan Shrestha D.O. PGY-3, Internal Medicine Resident, Infectious Disease Progress Note 73 year old female with a PMH of COPD and tobacco abuse who presented to [facility] on 09[place]08[place] after she was found by her family members laying in her couch for about 3 days. Infectious disease consultation was requested for severe sepsis. Patient was seen and examined at chairside. Breathing continues to improve everyday. Sitting up comfortably. Objective - Vital Signs/Intake and Output Vital Signs (last 24 hours): Temp Pulse Resp BP Pulse Ox 97.6 F 87 25 H 118/56 L 91 L 09/17/18 08:00 09/17/18 06:00 09/17/18 06:00 09/17/18 09:21 09/17/18 06:00 - Medications Medications: Current Medications Acetaminophen (Tylenol 325mg Tab) 650 mg PO Q6 PRN PRN Reason: TEMP>=99.5F Last Admin: 09/14/18 17:04 Dose: 650 mg Acetaminophen (Tylenol 650 Mg Supp) 650 mg RC Q6H PRN PRN Reason: TEMP>=99.5F Albuterol/Ipratropium (Duoneb 3 Mg/0.5 Mg (3 Ml) Ud) 3 ml IH [id number] [facility] Last Admin: 09/17/18 13:25 Dose: 3 ml Allopurinol (Zyloprim) 100 mg PO DAILY [facility] Last Admin: 09/17/18 09:21 Dose: 100 mg Arformoterol Tartrate (Brovana) 15 mcg IH [id number] [facility] Last Admin: 09/17/18 07:41 Dose: 15 mcg Budesonide (Pulmicort Respules) 0.5 mg IH [id number] [facility] Last Admin: 09/17/18 07:42 Dose: 0.5 mg Dextrose (Dextrose 50% Inj) 0 ml IV STAT PRN; Protocol PRN Reason: Hypoglycemia Protocol Ergocalciferol (Drisdol 50,000 Intl Units Cap) 1 cap PO Q7D [facility] Last Admin: 09/10/18 18:32 Dose: 1 cap Furosemide (Lasix) 40 mg IVP DAILY [facility] Last Admin: 09/17/18 09:21 Dose: 40 mg Dextrose (Dextrose 5% In Water 1000 Ml) 1,000 mls @ 0 mls/hr IV .Q0M PRN; Protocol PRN Reason: Hypoglycemia Protocol Insulin Human Lispro (Humalog High) 0 units SC ACHS [facility]; Protocol Last Admin: 09/17/18 07:38 Dose: Not Given Lactic Acid (Lac-Hydrin 12% Cream (140 G)) 0 ea TOP DAILY [facility] Last Admin: 09/17/18 09:26 Dose: 1 applic Methylprednisolone (Solu-Medrol) 30 mg IVP Q8H [facility] Last Admin: 09/17/18 09:22 Dose: 30 mg Nicotine (Nicoderm Cq) 1 patch TD DAILY [facility] Last Admin: 09/17/18 09:20 Dose: 1 patch Nystatin (Nystop Topical Powder) 0 gm TOP Q6 [facility] Last Admin: 09/17/18 05:42 Dose: 2 pdr Nystatin (Mycostatin Cream) 0 ea TOP TID [facility] Last Admin: 09/17/18 09:26 Dose: 1 unit Ondansetron HCl (Zofran Inj) 4 mg IVP Q4H PRN PRN Reason: Nausea/Vomiting Pantoprazole Sodium (Protonix Ec Tab) 40 mg PO 0600,1600 [facility] Last Admin: 09/17/18 06:41 Dose: 40 mg Polyethylene Glycol (Miralax) 17 gm PO BID [facility] Last Admin: 09/17/18 09:21 Dose: 17 gm - Labs Labs: 09/17/18 05:30 09/17/18 05:30 PT 11.6 SECONDS (9.4-12.5) 09/17/18 05:30 INR 1.03 09/17/18 05:30 APTT 24.6 Seconds (26.9-38.3) L 09/17/18 05:30 - Constitutional Appears: Chronically Ill, obese elderly female - Head Exam Head Exam: ATRAUMATIC, NORMOCEPHALIC - Eye Exam Eye Exam: EOMI. absent: Scleral icterus - ENT Exam ENT Exam: Mucous Membranes Moist - Neck Exam Additional comments: obese, soft - Respiratory Exam Respiratory Exam: Decreased breath sounds - Cardiovascular Exam Cardiovascular Exam: +S1, +S2 - GI/Abdominal Exam GI & Abdominal Exam: Soft, NT, obese - Extremities Exam Additional comments: chronic stasis changes - Neurological Exam Additional comments: Awake, Alert, Orientedx3 - Skin Skin Exam: Dry, Warm Assessment and Plan - Assessment and Plan (Free Text) Assessment: 73 year old female with a PMH of COPD and tobacco abuse who presented to [facility] on 09/08/18 after she was found by her family members laying in her couch for about 3 days. Infectious disease consultation was requested for severe sepsis. Plan: Severe sepsis - resolved Acute respiratory failure requiring intubation, now exubated Pulmonary embolism - off AC s/p IVC filter Right and left ventricular dysfunction CAP - finished treatment Pleural effusions Afebrile at this time No leukocytosis Monitoring off abx at this time Patient at risk for nosocomial infections We will follow with you Patient was seen and examined and case to be discussed with attending physician. Thank you for the pleasure of participating in the care of this interesting patient. <Agapito Rojo - Last Filed: 09/17/18 14:51> Objective - Vital Signs/Intake and Output Vital Signs (last 24 hours): Temp Pulse Resp BP Pulse Ox 97.9 F 84 25 H 118/56 L 91 L 09/17/18 12:00 09/17/18 10:00 09/17/18 06:00 09/17/18 09:21 09/17/18 06:00 - Medications Medications: Current Medications Acetaminophen (Tylenol 325mg Tab) 650 mg PO Q6 PRN PRN Reason: TEMP>=99.5F Last Admin: 09/14/18 17:04 Dose: 650 mg Acetaminophen (Tylenol 650 Mg Supp) 650 mg RC Q6H PRN PRN Reason: TEMP>=99.5F Albuterol/Ipratropium (Duoneb 3 Mg/0.5 Mg (3 Ml) Ud) 3 ml IH [id number] [facility] Last Admin: 09/17/18 13:25 Dose: 3 ml Allopurinol (Zyloprim) 100 mg PO DAILY [facility] Last Admin: 09/17/18 09:21 Dose: 100 mg Arformoterol Tartrate (Brovana) 15 mcg IH [id number] [facility] Last Admin: 09/17/18 07:41 Dose: 15 mcg Budesonide (Pulmicort Respules) 0.5 mg IH [id number] [facility] Last Admin: 09/17/18 07:42 Dose: 0.5 mg Dextrose (Dextrose 50% Inj) 0 ml IV STAT PRN; Protocol PRN Reason: Hypoglycemia Protocol Ergocalciferol (Drisdol 50,000 Intl Units Cap) 1 cap PO Q7D [facility] Last Admin: 09/10/18 18:32 Dose: 1 cap Furosemide (Lasix) 40 mg IVP DAILY [facility] Last Admin: 09/17/18 09:21 Dose: 40 mg Dextrose (Dextrose 5% In Water 1000 Ml) 1,000 mls @ 0 mls/hr IV .Q0M PRN; Protocol PRN Reason: Hypoglycemia Protocol Insulin Human Lispro (Humalog High) 0 units SC ACHS [facility]; Protocol Last Admin: 09/17/18 07:38 Dose: Not Given Lactic Acid (Lac-Hydrin 12% Cream (140 G)) 0 ea TOP DAILY [facility] Last Admin: 09/17/18 09:26 Dose: 1 applic Methylprednisolone (Solu-Medrol) 30 mg IVP Q8H [facility] Last Admin: 09/17/18 09:22 Dose: 30 mg Nicotine (Nicoderm Cq) 1 patch TD DAILY [facility] Last Admin: 09/17/18 09:20 Dose: 1 patch Nystatin (Nystop Topical Powder) 0 gm TOP Q6 [facility] Last Admin: 09/17/18 05:42 Dose: 2 pdr Nystatin (Mycostatin Cream) 0 ea TOP TID [facility] Last Admin: 09/17/18 09:26 Dose: 1 unit Ondansetron HCl (Zofran Inj) 4 mg IVP Q4H PRN PRN Reason: Nausea/Vomiting Pantoprazole Sodium (Protonix Ec Tab) 40 mg PO 0600,1600 [facility] Last Admin: 09/17/18 06:41 Dose: 40 mg Polyethylene Glycol (Miralax) 17 gm PO BID [facility] Last Admin: 09/17/18 09:21 Dose: 17 gm - Labs Labs: 09/17/18 05:30 09/17/18 05:30 PT 11.6 SECONDS (9.4-12.5) 09/17/18 05:30 INR 1.03 09/17/18 05:30 APTT 24.6 Seconds (26.9-38.3) L 09/17/18 05:30 Attending/Attestation - Attestation I have personally seen and examined this patient.: Yes I have fully participated in the care of the patient.: Yes I have reviewed all pertinent clinical information, including history, physical exam and plan: Yes
--- NOTE | 2018-09-17 14:27 | CP.PCM.PN ---
Subjective - Date & Time of Evaluation Date of Evaluation: 09/17/18 Time of Evaluation: 14:26 - Subjective Subjective: Nephrology Consultation Note: Assessment: stable likely CKD 3 with UA 30 prot. renal imaging atrophy scarring Rt kidney and eGFR in 50s COPD/sys CHF exacerbation with PNA, acute PE, DM and sepsis morbid obesity acute on chronic hypercapnic respi failure with renal compensation active smoker hyperkalemia vit d def cholelithiasis Plan No acute need for renal replacement therapy at this time. Hypertension control with meds as ordered. Maintain hemodynamics stable. Avoid hypotension. Patient not on ACEI or ARB at present, held for low bp. can resume if allowed by BP Monitor Input/Output, daily weights and renal function with basic metabolic panel lasix resumed . d/c diamox added weekly vit D cardiology, pulmonary following Check urine spot protein/creatinine, albumin/creatinine ratio Dose meds/antibiotics for GFR >50 Glycemic control. once stable and acute process resolved, pt will need weight loss, smoking cessation, lifestyle modifications Further work up/management as per primary team Thanks for allowing me to participate in care of your patient. Will follow patient with you. Please call if any Qs. had d/w team Dr David Harrison Office: [phone] Chief Complaint; unable Reason for consult: Acute Kidney Injury HPI: Pt is a 73 F with hx of heavy smoking, no medical follow ups presented with complaints of SOB and respi distress intubated and admitted to ICU. foudn to have CHF exacerbation with PNA, PE, DM and sepsis renal consult for abnormal imaging and renal fxn eval Denies OTC/herbal meds or NSAIDs Noted recent iodinated contrast exposure as CTA. No obvious episodes of low BP. ROS: pt extubated on o2 via NC. feels better. no urine complaints Physical Examination: General Appearance: better appearing on O2 via NC. no acute distress, obese Vitals reviewed and noted as below Head; Atraumatic, normocephalic ENT: normal oral mucosa EYES: Pupils are equal, round and reactive to light accommodation. Eye muscles and extraocular movement intact. Sclera is anicteric. Neck; supple no lymphadenopathy, no thyromegaly or bruit Lungs: Normal respiratory rate/effort. Breath sounds bilateral reduced Heart: Normal rate. s1s2 normal. No rub or gallop. Extremities: trace edema. No varicose veins Neurological: Patient is awake alert follows commands Skin: Warm and dry. Normal turgor. No rash. Palpitation: Normal elasticity for age Abdomen: Abdomen is soft. Bowel sounds +. There is no abdominal tenderness, no guarding/rigidity no organomegaly Psych: limited insight. MSK: no joint tenderness or swelling. Digits and nails normal, no deformity : kidney or bladder not palpable. smith farrell Labs/imaging reviewed. Past medical history, past surgical history, family history, social history, allergy reviewed and noted as below Family hx: no hx of CKD. Rest non-contributory UA 30 prot. renal imaging atrophy scarring Rt kidney Objective - Vital Signs/Intake and Output Vital Signs (last 24 hours): Temp Pulse Resp BP Pulse Ox 97.6 F 84 25 H 118/56 L 91 L 09/17/18 08:00 09/17/18 10:00 09/17/18 06:00 09/17/18 09:21 09/17/18 06:00 - Medications Medications: Current Medications Acetaminophen (Tylenol 325mg Tab) 650 mg PO Q6 PRN PRN Reason: TEMP>=99.5F Last Admin: 09/14/18 17:04 Dose: 650 mg Acetaminophen (Tylenol 650 Mg Supp) 650 mg RC Q6H PRN PRN Reason: TEMP>=99.5F Albuterol/Ipratropium (Duoneb 3 Mg/0.5 Mg (3 Ml) Ud) 3 ml IH [id number] [facility] Last Admin: 09/17/18 13:25 Dose: 3 ml Allopurinol (Zyloprim) 100 mg PO DAILY [facility] Last Admin: 09/17/18 09:21 Dose: 100 mg Arformoterol Tartrate (Brovana) 15 mcg IH [id number] [facility] Last Admin: 09/17/18 07:41 Dose: 15 mcg Budesonide (Pulmicort Respules) 0.5 mg IH [id number] [facility] Last Admin: 09/17/18 07:42 Dose: 0.5 mg Dextrose (Dextrose 50% Inj) 0 ml IV STAT PRN; Protocol PRN Reason: Hypoglycemia Protocol Ergocalciferol (Drisdol 50,000 Intl Units Cap) 1 cap PO Q7D [facility] Last Admin: 09/10/18 18:32 Dose: 1 cap Furosemide (Lasix) 40 mg IVP DAILY [facility] Last Admin: 09/17/18 09:21 Dose: 40 mg Dextrose (Dextrose 5% In Water 1000 Ml) 1,000 mls @ 0 mls/hr IV .Q0M PRN; Protocol PRN Reason: Hypoglycemia Protocol Insulin Human Lispro (Humalog High) 0 units SC ACHS [facility]; Protocol Last Admin: 09/17/18 07:38 Dose: Not Given Lactic Acid (Lac-Hydrin 12% Cream (140 G)) 0 ea TOP DAILY [facility] Last Admin: 09/17/18 09:26 Dose: 1 applic Methylprednisolone (Solu-Medrol) 30 mg IVP Q8H [facility] Last Admin: 09/17/18 09:22 Dose: 30 mg Nicotine (Nicoderm Cq) 1 patch TD DAILY [facility] Last Admin: 09/17/18 09:20 Dose: 1 patch Nystatin (Nystop Topical Powder) 0 gm TOP Q6 [facility] Last Admin: 09/17/18 05:42 Dose: 2 pdr Nystatin (Mycostatin Cream) 0 ea TOP TID [facility] Last Admin: 09/17/18 09:26 Dose: 1 unit Ondansetron HCl (Zofran Inj) 4 mg IVP Q4H PRN PRN Reason: Nausea/Vomiting Pantoprazole Sodium (Protonix Ec Tab) 40 mg PO 0600,1600 [facility] Last Admin: 09/17/18 06:41 Dose: 40 mg Polyethylene Glycol (Miralax) 17 gm PO BID [facility] Last Admin: 09/17/18 09:21 Dose: 17 gm - Labs Labs: 09/17/18 05:30 09/17/18 05:30 PT 11.6 SECONDS (9.4-12.5) 09/17/18 05:30 INR 1.03 09/17/18 05:30 APTT 24.6 Seconds (26.9-38.3) L 09/17/18 05:30
[2018-09-17] MEDS: Ergocalciferol 50,000 Intl Units Cap PO SCH (15:58)
--- NOTE | 2018-09-17 21:12 | CP.PCM.PN ---
Subjective - Date & Time of Evaluation Date of Evaluation: 09/16/18 Time of Evaluation: 12:00 - Subjective Subjective: No complaints, comfortable Objective - Vital Signs/Intake and Output Vital Signs (last 24 hours): Temp Pulse Resp BP Pulse Ox 97.9 F 76 27 H 117/60 96 09/17/18 12:00 09/17/18 18:00 09/17/18 17:44 09/17/18 17:45 09/17/18 17:44 Intake and Output: 09/17/18 09/18/18 18:59 06:59 Intake Total 790 Output Total 1750 Balance -960 - Medications Medications: Current Medications Acetaminophen (Tylenol 325mg Tab) 650 mg PO Q6 PRN PRN Reason: TEMP>=99.5F Last Admin: 09/14/18 17:04 Dose: 650 mg Acetaminophen (Tylenol 650 Mg Supp) 650 mg RC Q6H PRN PRN Reason: TEMP>=99.5F Albuterol/Ipratropium (Duoneb 3 Mg/0.5 Mg (3 Ml) Ud) 3 ml IH [id number] [facility] Last Admin: 09/17/18 20:28 Dose: 3 ml Allopurinol (Zyloprim) 100 mg PO DAILY [facility] Last Admin: 09/17/18 09:21 Dose: 100 mg Arformoterol Tartrate (Brovana) 15 mcg IH [id number] [facility] Last Admin: 09/17/18 20:28 Dose: 15 mcg Budesonide (Pulmicort Respules) 0.5 mg IH [id number] [facility] Last Admin: 09/17/18 20:28 Dose: 0.5 mg Dextrose (Dextrose 50% Inj) 0 ml IV STAT PRN; Protocol PRN Reason: Hypoglycemia Protocol Ergocalciferol (Drisdol 50,000 Intl Units Cap) 1 cap PO Q7D [facility] Last Admin: 09/17/18 15:58 Dose: 1 cap Furosemide (Lasix) 40 mg IVP DAILY [facility] Last Admin: 09/17/18 09:21 Dose: 40 mg Dextrose (Dextrose 5% In Water 1000 Ml) 1,000 mls @ 0 mls/hr IV .Q0M PRN; Protocol PRN Reason: Hypoglycemia Protocol Insulin Human Lispro (Humalog High) 0 units SC ACHS [facility]; Protocol Last Admin: 09/17/18 16:16 Dose: Not Given Lactic Acid (Lac-Hydrin 12% Cream (140 G)) 0 ea TOP DAILY [facility] Last Admin: 09/17/18 09:26 Dose: 1 applic Methylprednisolone (Solu-Medrol) 30 mg IVP Q8H [facility] Last Admin: 09/17/18 18:12 Dose: 30 mg Nicotine (Nicoderm Cq) 1 patch TD DAILY [facility] Last Admin: 09/17/18 09:20 Dose: 1 patch Nystatin (Nystop Topical Powder) 0 gm TOP Q6 [facility] Last Admin: 09/17/18 18:11 Dose: 1 pdr Nystatin (Mycostatin Cream) 0 ea TOP TID [facility] Last Admin: 09/17/18 18:10 Dose: 1 unit Ondansetron HCl (Zofran Inj) 4 mg IVP Q4H PRN PRN Reason: Nausea/Vomiting Pantoprazole Sodium (Protonix Ec Tab) 40 mg PO 0600,1600 [facility] Last Admin: 09/17/18 15:57 Dose: 40 mg Polyethylene Glycol (Miralax) 17 gm PO BID [facility] Last Admin: 09/17/18 18:11 Dose: 17 gm - Labs Labs: 09/17/18 05:30 09/17/18 05:30 PT 11.6 SECONDS (9.4-12.5) 09/17/18 05:30 INR 1.03 09/17/18 05:30 APTT 24.6 Seconds (26.9-38.3) L 09/17/18 05:30 - Head Exam Head Exam: ATRAUMATIC - Eye Exam Eye Exam: Normal appearance - ENT Exam ENT Exam: Mucous Membranes Dry - Respiratory Exam Respiratory Exam: NORMAL BREATHING PATTERN - Cardiovascular Exam Cardiovascular Exam: +S1, +S2 - GI/Abdominal Exam GI & Abdominal Exam: Normal Bowel Sounds Assessment and Plan (1) Thigh hematoma Assessment & Plan: ikely related to recent fall and anticoagulation agree with holding anticoagulation and IVC filter placement Status: Acute (2) Pulmonary embolism Assessment & Plan: likely embolized from lower extremities given recent fall and immobility anticoagulation contraindicated given acute thigh hematoma s/p retrievable IVC filter Status: Acute (3) Anemia Assessment & Plan: secondary to hemorrhage into thigh normal iron/b12/folate stores H/H improving Status: Acute
--- NOTE | 2018-09-17 21:13 | CP.PCM.PN ---
Subjective - Date & Time of Evaluation Date of Evaluation: 09/17/18 Time of Evaluation: 18:00 - Subjective Subjective: No complaints, comfortable Objective - Vital Signs/Intake and Output Vital Signs (last 24 hours): Temp Pulse Resp BP Pulse Ox 97.9 F 76 27 H 117/60 96 09/17/18 12:00 09/17/18 18:00 09/17/18 17:44 09/17/18 17:45 09/17/18 17:44 Intake and Output: 09/17/18 09/18/18 18:59 06:59 Intake Total 790 Output Total 1750 Balance -960 - Medications Medications: Current Medications Acetaminophen (Tylenol 325mg Tab) 650 mg PO Q6 PRN PRN Reason: TEMP>=99.5F Last Admin: 09/14/18 17:04 Dose: 650 mg Acetaminophen (Tylenol 650 Mg Supp) 650 mg RC Q6H PRN PRN Reason: TEMP>=99.5F Albuterol/Ipratropium (Duoneb 3 Mg/0.5 Mg (3 Ml) Ud) 3 ml IH [id number] [facility] Last Admin: 09/17/18 20:28 Dose: 3 ml Allopurinol (Zyloprim) 100 mg PO DAILY [facility] Last Admin: 09/17/18 09:21 Dose: 100 mg Arformoterol Tartrate (Brovana) 15 mcg [facility] [id number] [facility] Last Admin: 09/17/18 20:28 Dose: 15 mcg Budesonide (Pulmicort Respules) 0.5 mg IH [id number] [facility] Last Admin: 09/17/18 20:28 Dose: 0.5 mg Dextrose (Dextrose 50% Inj) 0 ml IV STAT PRN; Protocol PRN Reason: Hypoglycemia Protocol Ergocalciferol (Drisdol 50,000 Intl Units Cap) 1 cap PO Q7D [facility] Last Admin: 09/17/18 15:58 Dose: 1 cap Furosemide (Lasix) 40 mg IVP DAILY [facility] Last Admin: 09/17/18 09:21 Dose: 40 mg Dextrose (Dextrose 5% In Water 1000 Ml) 1,000 mls @ 0 mls/hr IV .Q0M PRN; Protocol PRN Reason: Hypoglycemia Protocol Insulin Human Lispro (Humalog High) 0 units SC ACHS [facility]; Protocol Last Admin: 09/17/18 16:16 Dose: Not Given Lactic Acid (Lac-Hydrin 12% Cream (140 G)) 0 ea TOP DAILY [facility] Last Admin: 09/17/18 09:26 Dose: 1 applic Methylprednisolone (Solu-Medrol) 30 mg IVP Q8H [facility] Last Admin: 09/17/18 18:12 Dose: 30 mg Nicotine (Nicoderm Cq) 1 patch TD DAILY [facility] Last Admin: 09/17/18 09:20 Dose: 1 patch Nystatin (Nystop Topical Powder) 0 gm TOP Q6 [facility] Last Admin: 09/17/18 18:11 Dose: 1 pdr Nystatin (Mycostatin Cream) 0 ea TOP TID [facility] Last Admin: 09/17/18 18:10 Dose: 1 unit Ondansetron HCl (Zofran Inj) 4 mg IVP Q4H PRN PRN Reason: Nausea/Vomiting Pantoprazole Sodium (Protonix Ec Tab) 40 mg PO 0600,1600 [facility] Last Admin: 09/17/18 15:57 Dose: 40 mg Polyethylene Glycol (Miralax) 17 gm PO BID [facility] Last Admin: 09/17/18 18:11 Dose: 17 gm - Labs Labs: 09/17/18 05:30 09/17/18 05:30 PT 11.6 SECONDS (9.4-12.5) 09/17/18 05:30 INR 1.03 09/17/18 05:30 APTT 24.6 Seconds (26.9-38.3) L 09/17/18 05:30 - Head Exam Head Exam: ATRAUMATIC - Eye Exam Eye Exam: Normal appearance - ENT Exam ENT Exam: Mucous Membranes Dry - Respiratory Exam Respiratory Exam: NORMAL BREATHING PATTERN - Cardiovascular Exam Cardiovascular Exam: +S1, +S2 - GI/Abdominal Exam GI & Abdominal Exam: Normal Bowel Sounds Assessment and Plan (1) Thigh hematoma Assessment & Plan: likely related to recent fall and anticoagulation agree with holding anticoagulation and IVC filter placement Status: Acute (2) Pulmonary embolism Assessment & Plan: likely embolized from lower extremities given recent fall and immobility anticoagulation contraindicated given acute thigh hematoma s/p retrievable IVC filter Status: Acute (3) Anemia Assessment & Plan: secondary to hemorrhage into thigh normal iron/b12/folate stores H/H improving Status: Acute
[2018-09-18] MEDS: MethylPREDNISolone 40 mg Vial IVP SCH ×3 (00:05→17:09)
[2018-09-18] MEDS: Nystatin 100,000 Units/gm Topical Pow(15 gm) TOP SCH ×4 (00:06→17:15)
[2018-09-18] MEDS: Albuterol-Ipratrop 3 mg / 0.5 (3 ml) UD IH SCH ×4 (02:46→21:00)
[2018-09-18 06:02] LABS: HEMOGLOBIN 9.9 g/dL (12.0-16.0); LYMPH # 0.3 (1.2-3.4); LYMPH % 3.4 % (22.0-35.0); MEAN CELL VOLUME 92.5 fl (80.0-105.0); MEAN CORPUSCULAR HEMOGLOBIN 28.5 pg (25.0-35.0); MEAN CORPUSCULAR HGB CONC 30.8 g/dl (31.0-37.0); MEAN PLATELET VOLUME 9.8 fl (7.0-11.0); MONO # 0.3 (0.1-0.6); MONO % 3.4 % (1.0-6.0); PLATELET COUNT 246 10^3/uL (120.0-450.0); RBC 3.47 10^6/uL (3.5-6.1); RED CELL DISTRIBUTION WIDTH 15.6 % (11.5-14.5); WHITE BLOOD COUNT 9.6 10^3/uL (4.5-11.0)
[2018-09-18 06:04] LABS: INR 1.04; PARTIAL THROMBOPLASTIN TIME 24.5 Seconds (26.9-38.3); PROTHROMBIN TIME 11.7 SECONDS (9.4-12.5)
[2018-09-18] MEDS: Pantoprazole 40 mg EC Tab PO SCH ×2 (06:29→17:09)
[2018-09-18 06:40] LABS: BAND 1 % (0-2); LYMPHOCYTE 3 % (22.0-35.0); MONOCYTE 1 % (1.0-6.0); NEUTROPHIL 95 % (50.0-70.0); PLATELET ESTIMATE NORMAL (NORMAL)
[2018-09-18 06:41] LABS: ANISOCYTOSIS SLIGHT
[2018-09-18 06:54] LABS: ALBUMIN 2.8 g/dL (3.0-4.8); ALT/SGPT 17 U/L (7-56); AST/SGOT 28 U/L (14-36); BILIRUBIN,DIRECT 0.2 mg/dL (0.0-0.4); BLOOD UREA NITROGEN 31 mg/dL (7-21); CALCIUM 8.7 mg/dL (8.4-10.5); GFR NON-AFRICAN AMERICAN > 60
[2018-09-18] MEDS: Arformoterol 15 mcg/2 ml Inh Sol IH SCH ×2 (07:00→20:59)
[2018-09-18] MEDS: Budesonide 0.5 mg/2 ml Inhal Susp UD IH SCH ×2 (07:01→21:00)
[2018-09-18] MEDS: Insulin Lispro (HUMAlog) HIGH Coverage SC SCH ×4 (07:30→21:53)
--- NOTE | 2018-09-18 07:58 | CP.PCM.PN ---
Subjective - Date & Time of Evaluation Date of Evaluation: 09/18/18 Time of Evaluation: 07:35 - Subjective Subjective: (covering for Dr. Law) Patient is seen this morning. She is awake lying in bed. She says that she sat up in the chair yesterday. She has cough. Objective - Vital Signs/Intake and Output Vital Signs (last 24 hours): Temp Pulse Resp BP Pulse Ox 98.9 F 69 24 128/64 93 L 09/18/18 04:00 09/18/18 04:00 09/18/18 07:02 09/18/18 04:00 09/18/18 04:00 - Medications Medications: Current Medications Acetaminophen (Tylenol 325mg Tab) 650 mg PO Q6 PRN PRN Reason: TEMP>=99.5F Last Admin: 09/14/18 17:04 Dose: 650 mg Acetaminophen (Tylenol 650 Mg Supp) 650 mg RC Q6H PRN PRN Reason: TEMP>=99.5F Albuterol/Ipratropium (Duoneb 3 Mg/0.5 Mg (3 Ml) Ud) 3 ml IH [id number] [facility] Last Admin: 09/18/18 07:00 Dose: 3 ml Allopurinol (Zyloprim) 100 mg PO DAILY [facility] Last Admin: 09/17/18 09:21 Dose: 100 mg Arformoterol Tartrate (Brovana) 15 mcg IH [id number] [facility] Last Admin: 09/18/18 07:00 Dose: 15 mcg Budesonide (Pulmicort Respules) 0.5 mg IH [id number] [facility] Last Admin: 09/18/18 07:01 Dose: 0.5 mg Dextrose (Dextrose 50% Inj) 0 ml IV STAT PRN; Protocol PRN Reason: Hypoglycemia Protocol Ergocalciferol (Drisdol 50,000 Intl Units Cap) 1 cap PO Q7D [facility] Last Admin: 09/17/18 15:58 Dose: 1 cap Furosemide (Lasix) 40 mg IVP DAILY [facility] Last Admin: 09/17/18 09:21 Dose: 40 mg Dextrose (Dextrose 5% In Water 1000 Ml) 1,000 mls @ 0 mls/hr IV .Q0M PRN; Protocol PRN Reason: Hypoglycemia Protocol Insulin Human Lispro (Humalog High) 0 units SC ACHS [facility]; Protocol Last Admin: 09/17/18 22:23 Dose: Not Given Lactic Acid (Lac-Hydrin 12% Cream (140 G)) 0 ea TOP DAILY [facility] Last Admin: 09/17/18 09:26 Dose: 1 applic Methylprednisolone (Solu-Medrol) 30 mg IVP Q8H [facility] Last Admin: 09/18/18 00:05 Dose: 30 mg Nicotine (Nicoderm Cq) 1 patch TD DAILY [facility] Last Admin: 09/17/18 09:20 Dose: 1 patch Nystatin (Nystop Topical Powder) 0 gm TOP Q6 [facility] Last Admin: 09/18/18 06:29 Dose: 1 pdr Nystatin (Mycostatin Cream) 0 ea TOP TID [facility] Last Admin: 09/17/18 18:10 Dose: 1 unit Ondansetron HCl (Zofran Inj) 4 mg IVP Q4H PRN PRN Reason: Nausea/Vomiting Pantoprazole Sodium (Protonix Ec Tab) 40 mg PO 0600,1600 [facility] Last Admin: 09/18/18 06:29 Dose: 40 mg Polyethylene Glycol (Miralax) 17 gm PO BID [facility] Last Admin: 09/17/18 18:11 Dose: 17 gm - Labs Labs: 09/18/18 05:15 09/18/18 05:15 PT 11.7 SECONDS (9.4-12.5) 09/18/18 05:15 INR 1.04 09/18/18 05:15 APTT 24.5 Seconds (26.9-38.3) L 09/18/18 05:15 - Constitutional Appears: No Acute Distress - Head Exam Head Exam: ATRAUMATIC, NORMOCEPHALIC - Respiratory Exam Additional comments: essentially clear with few rhonchi - Cardiovascular Exam Cardiovascular Exam: +S1, +S2 - GI/Abdominal Exam GI & Abdominal Exam: Soft. absent: Tenderness - Extremities Exam Extremities Exam: Pedal Edema - Neurological Exam Neurological Exam: Alert, Awake, Oriented x3 Assessment and Plan - Assessment and Plan (Free Text) Assessment: s/p VDRF now on high flow oxygen Acute Pulmonary Embolism s/p IVC filter Left posterior medial thigh hematoma Advanced COPD Plan: Patient continues to cough. She appears to be comfortable on high flow oxygen. She was seen by pulmonary, Dr. Rajput yesterday, and started on IV solumedrol. continue respiratory treatments. Patient is off anticoagulation due to large left thigh hematoma. IVC filter has been placed. Patient is currently off antibiotics. Hemoglobin is stable at 9.9 this morning after transfusion of 2 units PRBCs. continue to monitor H&H.
--- NOTE | 2018-09-18 09:15 | PN ---
DATE: 09/18/2018(700am-750am) SUBJECTIVE: The patient appears comfortable this morning. She is not short of breath at rest. PHYSICAL EXAMINATION: VITAL SIGNS: Temperature is 98.9, pulse 74, respirations 20, blood pressure 128/64. Oxygen saturation on nasal cannula is 94%. HEENT: Normocephalic, atraumatic. No JVD. CARDIOVASCULAR: Systolic ejection murmur at the lower left sternal border. Questionable S3 gallop. LUNGS: Decreased breath sounds at the bases. Much less rhonchi. No wheezing this morning. EXTREMITIES: Positive for edema. No cyanosis or clubbing. Calves are nontender to palpation. The left thigh is wrapped. GASTROINTESTINAL: Abdomen is soft, nontender and nondistended. Bowel sounds are positive. SKIN: No acute rash. NEUROLOGIC: Exam limited at the present time. IMPRESSION: 1. Advanced chronic obstructive pulmonary disease. 2. Moderate bronchospasm. 3. Status post respiratory failure. 4. Right lower lobe pulmonary embolism. 5. Cardiomyopathy. 6. Anemia. 7. Left thigh hematoma. PLAN: The patient appears comfortable this morning. She is not short of breath at rest. She does state to feeling much better overall. I did discuss the case with the night nurse at length. The night nurse stated the patient had a good night. On physical exam, her bronchospasm is definitely less this morning. In addition, the alveolar-arterial gradient is also less. I will continue the current nebulizer treatments and current intravenous steroids (started yesterday) for now. Inputs by Hematology, Renal, Infectious Disease are also noted. Clinical status of the patient is significantly improved --- compared to the initial presentation. However, given the above, the future status/prognosis for this patient remains very, very guarded. I will discuss the above with the entire ICU team the next few moments. I will also discuss the above with the attending physician later this morning. Andrae Rajput MD MTDKenji
--- NOTE | 2018-09-18 09:52 | RAD ---
Date of service: 09/18/2018 HISTORY: follow up COMPARISON: 09/17/2018 FINDINGS: LUNGS: Infiltrate at the right lung base PLEURA: No significant pleural effusion identified, no pneumothorax apparent. CARDIOVASCULAR: Aortic calcification. Right-sided aortic arch. Mild cardiomegaly no pulmonary vascular congestion. OSSEOUS STRUCTURES: No significant abnormalities. VISUALIZED UPPER ABDOMEN: Normal. OTHER FINDINGS: None. IMPRESSION: Minimal infiltrate at the right lung base unchanged
--- NOTE | 2018-09-18 10:42 | CP.PCM.PCO ---
Physician Communication Note - Physician Communication Note Physician Communication Note: spoke to dr daly- pt may go LTACH that family decides on -
--- NOTE | 2018-09-18 10:47 | CP.PCM.PCO ---
Physician Communication Note - Physician Communication Note Physician Communication Note: left vm for family re:ltach choice,pt med cleared for ltach per dr daly
--- NOTE | 2018-09-18 11:34 | CP.PCM.PN ---
<Ketan Shrestha - Last Filed: 09/18/18 11:32> Subjective - Date & Time of Evaluation Date of Evaluation: 09/18/18 Time of Evaluation: 07:00 - Subjective Subjective: Ketan Shrestha D.O. PGY-3, Internal Medicine Resident, Infectious Disease Progress Note 73 year old female with a PMH of COPD and tobacco abuse who presented to [facility] on 09/08/18 after she was found by her family members laying in her couch for about 3 days. Infectious disease consultation was requested for severe sepsis. Patient was seen and examined at chairside. Still on supp oxygen. No acute complaints. Objective - Vital Signs/Intake and Output Vital Signs (last 24 hours): Temp Pulse Resp BP Pulse Ox 98.9 F 69 24 128/64 93 L 09/18/18 04:00 09/18/18 04:00 09/18/18 07:02 09/18/18 04:00 09/18/18 04:00 - Medications Medications: Current Medications Acetaminophen (Tylenol 325mg Tab) 650 mg PO Q6 PRN PRN Reason: TEMP>=99.5F Last Admin: 09/14/18 17:04 Dose: 650 mg Acetaminophen (Tylenol 650 Mg Supp) 650 mg RC Q6H PRN PRN Reason: TEMP>=99.5F Albuterol/Ipratropium (Duoneb 3 Mg/0.5 Mg (3 Ml) Ud) 3 ml IH [id number] [facility] Last Admin: 09/18/18 07:00 Dose: 3 ml Allopurinol (Zyloprim) 100 mg PO DAILY [facility] Last Admin: 09/17/18 09:21 Dose: 100 mg Arformoterol Tartrate (Brovana) 15 mcg IH [id number] [facility] Last Admin: 09/18/18 07:00 Dose: 15 mcg Budesonide (Pulmicort Respules) 0.5 mg IH [id number] [facility] Last Admin: 09/18/18 07:01 Dose: 0.5 mg Dextrose (Dextrose 50% Inj) 0 ml IV STAT PRN; Protocol PRN Reason: Hypoglycemia Protocol Ergocalciferol (Drisdol 50,000 Intl Units Cap) 1 cap PO Q7D [facility] Last Admin: 09/17/18 15:58 Dose: 1 cap Furosemide (Lasix) 40 mg IVP DAILY [facility] Last Admin: 09/17/18 09:21 Dose: 40 mg Dextrose (Dextrose 5% In Water 1000 Ml) 1,000 mls @ 0 mls/hr IV .Q0M PRN; Pro tocol PRN Reason: Hypoglycemia Protocol Insulin Human Lispro (Humalog High) 0 units SC ACHS [facility]; Protocol Last Admin: 09/17/18 22:23 Dose: Not Given Lactic Acid (Lac-Hydrin 12% Cream (140 G)) 0 ea TOP DAILY [facility] Last Admin: 09/17/18 09:26 Dose: 1 applic Methylprednisolone (Solu-Medrol) 30 mg IVP Q8H [facility] Last Admin: 09/18/18 09:14 Dose: 30 mg Nicotine (Nicoderm Cq) 1 patch TD DAILY [facility] Last Admin: 09/17/18 09:20 Dose: 1 patch Nystatin (Nystop Topical Powder) 0 gm TOP Q6 [facility] Last Admin: 09/18/18 06:29 Dose: 1 pdr Nystatin (Mycostatin Cream) 0 ea TOP TID [facility] Last Admin: 09/17/18 18:10 Dose: 1 unit Ondansetron HCl (Zofran Inj) 4 mg IVP Q4H PRN PRN Reason: Nausea/Vomiting Pantoprazole Sodium (Protonix Ec Tab) 40 mg PO 0600,1600 [facility] Last Admin: 09/18/18 06:29 Dose: 40 mg Polyethylene Glycol (Miralax) 17 gm PO BID [facility] Last Admin: 09/17/18 18:11 Dose: 17 gm - Labs Labs: 09/18/18 05:15 09/18/18 05:15 PT 11.7 SECONDS (9.4-12.5) 09/18/18 05:15 INR 1.04 09/18/18 05:15 APTT 24.5 Seconds (26.9-38.3) L 09/18/18 05:15 - Constitutional Appears: Chronically Ill, obese elderly female - Head Exam Head Exam: ATRAUMATIC, NORMOCEPHALIC - Eye Exam Eye Exam: EOMI. absent: Scleral icterus - ENT Exam ENT Exam: Mucous Membranes Moist - Neck Exam Additional comments: obese, soft - Respiratory Exam Respiratory Exam: Decreased breath sounds - Cardiovascular Exam Cardiovascular Exam: +S1, +S2 - GI/Abdominal Exam GI & Abdominal Exam: Soft, NT, obese - Extremities Exam Additional comments: chronic stasis changes - Neurological Exam Additional comments: Awake, Alert, Orientedx3 - Skin Skin Exam: Dry, Warm Assessment and Plan - Assessment and Plan (Free Text) Assessment: 73 year old female with a PMH of COPD and tobacco abuse who presented to [facility] on 09/08/18 after she was found by her family members laying in her couch for about 3 days. Infectious disease consultation was requested for severe sepsis. Plan: Severe sepsis - resolved Acute respiratory failure requiring intubation, now exubated Pulmonary embolism - off AC s/p IVC filter Right and left ventricular dysfunction CAP - finished treatment Pleural effusions Have been monitoring off abx for a few days now Has been afebrile with no leukocytosis Patient at high risk for nosocomial infections Discussed case with Pulmonary Dr. Rajput, input appreciated We will follow with you Patient was seen and examined and case to be discussed with attending physician. Thank you for the pleasure of participating in the care of this interesting patient. <Agapito Rojo - Last Filed: 09/18/18 16:18> Objective - Vital Signs/Intake and Output Vital Signs (last 24 hours): Temp Pulse Resp BP Pulse Ox 98.9 F 69 24 123/61 93 L 09/18/18 04:00 09/18/18 04:00 09/18/18 07:02 09/18/18 11:43 09/18/18 04:00 - Medications Medications: Current Medications Acetaminophen (Tylenol 325mg Tab) 650 mg PO Q6 PRN PRN Reason: TEMP>=99.5F Last Admin: 09/14/18 17:04 Dose: 650 mg Acetaminophen (Tylenol 650 Mg Supp) 650 mg RC Q6H PRN PRN Reason: TEMP>=99.5F Albuterol/Ipratropium (Duoneb 3 Mg/0.5 Mg (3 Ml) Ud) 3 ml IH [id number] [facility] Last Admin: 09/18/18 07:00 Dose: 3 ml Allopurinol (Zyloprim) 100 mg PO DAILY [facility] Last Admin: 09/18/18 11:55 Dose: 100 mg Arformoterol Tartrate (Brovana) 15 mcg IH [id number] [facility] Last Admin: 09/18/18 07:00 Dose: 15 mcg Budesonide (Pulmicort Respules) 0.5 mg IH [id number] [facility] Last Admin: 09/18/18 07:01 Dose: 0.5 mg Dextrose (Dextrose 50% Inj) 0 ml IV STAT PRN; Protocol PRN Reason: Hypoglycemia Protocol Ergocalciferol (Drisdol 50,000 Intl Units Cap) 1 cap PO Q7D [facility] Last Admin: 09/17/18 15:58 Dose: 1 cap Furosemide (Lasix) 40 mg IVP DAILY [facility] Last Admin: 09/18/18 11:43 Dose: 40 mg Dextrose (Dextrose 5% In Water 1000 Ml) 1,000 mls @ 0 mls/hr IV .Q0M PRN; Protocol PRN Reason: Hypoglycemia Protocol Insulin Human Lispro (Humalog High) 0 units SC ACHS [facility]; Protocol Last Admin: 09/18/18 11:45 Dose: Not Given Lactic Acid (Lac-Hydrin 12% Cream (140 G)) 0 ea TOP DAILY [facility] Last Admin: 09/17/18 09:26 Dose: 1 applic Methylprednisolone (Solu-Medrol) 30 mg IVP Q8H [facility] Last Admin: 09/18/18 09:14 Dose: 30 mg Nicotine (Nicoderm Cq) 1 patch TD DAILY [facility] Last Admin: 09/18/18 11:45 Dose: 1 patch Nystatin (Nystop Topical Powder) 0 gm TOP Q6 [facility] Last Admin: 09/18/18 11:55 Dose: 1 pdr Nystatin (Mycostatin Cream) 0 ea TOP TID [facility] Last Admin: 09/18/18 11:56 Dose: 1 unit Ondansetron HCl (Zofran Inj) 4 mg IVP Q4H PRN PRN Reason: Nausea/Vomiting Pantoprazole Sodium (Protonix Ec Tab) 40 mg PO 0600,1600 [facility] Last Admin: 09/18/18 06:29 Dose: 40 mg Polyethylene Glycol (Miralax) 17 gm PO BID [facility] Last Admin: 09/18/18 11:44 Dose: 17 gm - Labs Labs: 09/18/18 05:15 09/18/18 05:15 PT 11.7 SECONDS (9.4-12.5) 09/18/18 05:15 INR 1.04 09/18/18 05:15 APTT 24.5 Seconds (26.9-38.3) L 09/18/18 05:15 Attending/Attestation - Attestation I have personally seen and examined this patient.: Yes I have fully participated in the care of the patient.: Yes I have reviewed all pertinent clinical information, including history, physical exam and plan: Yes
[2018-09-18] MEDS: POLYETHYLENE GLYCOL 3350 17 GM/Dose PACKET PO SCH ×2 (11:44→17:17)
[2018-09-18] MEDS: Nystatin 100,000 Units/gm Cream(15 gm) TOP SCH ×3 (11:56→17:15)
--- NOTE | 2018-09-18 14:59 | CP.PCM.PN ---
Subjective - Date & Time of Evaluation Date of Evaluation: 09/18/18 Time of Evaluation: 14:58 - Subjective Subjective: Nephrology Consultation Note: Assessment: stable likely CKD 3 with UA 30 prot. renal imaging atrophy scarring Rt kidney and eGFR in 50s COPD/sys CHF exacerbation with PNA, acute PE, DM and sepsis morbid obesity acute on chronic hypercapnic respi failure with renal compensation active smoker hyperkalemia vit d def cholelithiasis Plan No acute need for renal replacement therapy at this time. Hypertension control with meds as ordered. Maintain hemodynamics stable. Avoid hypotension. Patient not on ACEI or ARB at present, held for low bp. can resume if allowed by BP Monitor Input/Output, daily weights and renal function with basic metabolic panel lasix resumed . d/c diamox added weekly vit D cardiology, pulmonary following Check urine spot protein/creatinine, albumin/creatinine ratio Dose meds/antibiotics for GFR >50 Glycemic control. once stable and acute process resolved, pt will need weight loss, smoking cessation, lifestyle modifications Further work up/management as per primary team Thanks for allowing me to participate in care of your patient. Will follow patient with you. Please call if any Qs. had d/w team Dr David Harrison Office: [phone] Chief Complaint; unable Reason for consult: Acute Kidney Injury HPI: Pt is a 73 F with hx of heavy smoking, no medical follow ups presented with complaints of SOB and respi distress intubated and admitted to ICU. foudn to have CHF exacerbation with PNA, PE, DM and sepsis renal consult for abnormal imaging and renal fxn eval Denies OTC/herbal meds or NSAIDs Noted recent iodinated contrast exposure as CTA. No obvious episodes of low BP. ROS: pt extubated on o2 via NC. feels better. no urine complaints Physical Examination: General Appearance: better appearing on O2 via NC. no acute distress, obese Vitals reviewed and noted as below Head; Atraumatic, normocephalic ENT: normal oral mucosa EYES: Pupils are equal, round and reactive to light accommodation. Eye muscles and extraocular movement intact. Sclera is anicteric. Neck; supple no lymphadenopathy, no thyromegaly or bruit Lungs: Normal respiratory rate/effort. Breath sounds bilateral reduced Heart: Normal rate. s1s2 normal. No rub or gallop. Extremities: trace edema. No varicose veins Neurological: Patient is awake alert follows commands Skin: Warm and dry. Normal turgor. No rash. Palpitation: Normal elasticity for age Abdomen: Abdomen is soft. Bowel sounds +. There is no abdominal tenderness, no guarding/rigidity no organomegaly Psych: limited insight. MSK: no joint tenderness or swelling. Digits and nails normal, no deformity : kidney or bladder not palpable. smith farrell Labs/imaging reviewed. Past medical history, past surgical history, family history, social history, allergy reviewed and noted as below Family hx: no hx of CKD. Rest non-contributory UA 30 prot. renal imaging atrophy scarring Rt kidney Objective - Vital Signs/Intake and Output Vital Signs (last 24 hours): Temp Pulse Resp BP Pulse Ox 98.9 F 69 20 123/61 93 L 09/18/18 04:00 09/18/18 04:00 09/18/18 13:22 09/18/18 11:43 09/18/18 04:00 - Medications Medications: Current Medications Acetaminophen (Tylenol 325mg Tab) 650 mg PO Q6 PRN PRN Reason: TEMP>=99.5F Last Admin: 09/14/18 17:04 Dose: 650 mg Acetaminophen (Tylenol 650 Mg Supp) 650 mg RC Q6H PRN PRN Reason: TEMP>=99.5F Albuterol/Ipratropium (Duoneb 3 Mg/0.5 Mg (3 Ml) Ud) 3 ml IH [id number] [facility] Last Admin: 09/18/18 13:16 Dose: 3 ml Allopurinol (Zyloprim) 100 mg PO DAILY [facility] Last Admin: 09/18/18 11:55 Dose: 100 mg Arformoterol Tartrate (Brovana) 15 mcg IH [id number] [facility] Last Admin: 09/18/18 07:00 Dose: 15 mcg Budesonide (Pulmicort Respules) 0.5 mg IH [id number] [facility] Last Admin: 09/18/18 07:01 Dose: 0.5 mg Dextrose (Dextrose 50% Inj) 0 ml IV STAT PRN; Protocol PRN Reason: Hypoglycemia Protocol Ergocalciferol (Drisdol 50,000 Intl Units Cap) 1 cap PO Q7D [facility] Last Admin: 09/17/18 15:58 Dose: 1 cap Furosemide (Lasix) 40 mg IVP DAILY [facility] Last Admin: 09/18/18 11:43 Dose: 40 mg Dextrose (Dextrose 5% In Water 1000 Ml) 1,000 mls @ 0 mls/hr IV .Q0M PRN; Protocol PRN Reason: Hypoglycemia Protocol Insulin Human Lispro (Humalog High) 0 units SC ACHS [facility]; Protocol Last Admin: 09/18/18 11:45 Dose: Not Given Lactic Acid (Lac-Hydrin 12% Cream (140 G)) 0 ea TOP DAILY [facility] Last Admin: 09/17/18 09:26 Dose: 1 applic Methylprednisolone (Solu-Medrol) 30 mg IVP Q8H [facility] Last Admin: 09/18/18 09:14 Dose: 30 mg Nicotine (Nicoderm Cq) 1 patch TD DAILY [facility] Last Admin: 09/18/18 11:45 Dose: 1 patch Nystatin (Nystop Topical Powder) 0 gm TOP Q6 [facility] Last Admin: 09/18/18 11:55 Dose: 1 pdr Nystatin (Mycostatin Cream) 0 ea TOP TID [facility] Last Admin: 09/18/18 11:56 Dose: 1 unit Ondansetron HCl (Zofran Inj) 4 mg IVP Q4H PRN PRN Reason: Nausea/Vomiting Pantoprazole Sodium (Protonix Ec Tab) 40 mg PO 0600,1600 [facility] Last Admin: 09/18/18 06:29 Dose: 40 mg Polyethylene Glycol (Miralax) 17 gm PO BID [facility] Last Admin: 09/18/18 11:44 Dose: 17 gm - Labs Labs: 09/18/18 05:15 09/18/18 05:15 PT 11.7 SECONDS (9.4-12.5) 09/18/18 05:15 INR 1.04 09/18/18 05:15 APTT 24.5 Seconds (26.9-38.3) L 09/18/18 05:15
--- NOTE | 2018-09-18 16:09 | PN ---
DATE: 09/18/2018 CARDIOLOGY FOLLOWUP SUBJECTIVE: The patient is in a chair without shortness of breath. PHYSICAL EXAMINATION VITAL SIGNS: Blood pressure 123/61 and heart rates in the 70s. NECK: Negative JVD. LUNGS: Decreased breath sounds. HEART: Reveals S1 and S2. EXTREMITIES: Without change. LABORATORY DATA: Hemoglobin is 9.9. Chemistries, BUN and creatinine unremarkable. Glucose 142. IMPRESSION: 1. Status post respiratory failure. 2. Severe chronic obstructive pulmonary disease. 3. Pulmonary embolism. 4. Cardiomyopathy with segmental wall motion abnormalities consistent with coronary artery disease. Given these findings, the patient is doing well. Once she recovers from her respiratory failure, we will consider an stress test to rule out significant coronary disease. Nick Rowley MD
[2018-09-18] MEDS: Ammonium Lactate 12% Cream (140 g) TOP SCH (17:17)
[2018-09-18] MEDS: VITS A AND D/WHITE PET/LANOLIN 113.4 APPLIC/113.4 G TUBE TP SCH (17:17)
--- NOTE | 2018-09-19 00:41 | CP.PCM.PN ---
Subjective - Date & Time of Evaluation Date of Evaluation: 09/18/18 Time of Evaluation: 18:00 - Subjective Subjective: Feeling better, family at bedside. Objective - Vital Signs/Intake and Output Vital Signs (last 24 hours): Temp Pulse Resp BP Pulse Ox 98.4 F 74 19 128/69 76 L 09/18/18 12:00 09/18/18 18:00 09/18/18 16:00 09/18/18 16:00 09/18/18 16:00 Intake and Output: 09/18/18 09/19/18 18:59 06:59 Intake Total 720 Output Total 2175 Balance -1455 - Medications Medications: Current Medications Acetaminophen (Tylenol 325mg Tab) 650 mg PO Q6 PRN PRN Reason: TEMP>=99.5F Last Admin: 09/14/18 17:04 Dose: 650 mg Acetaminophen (Tylenol 650 Mg Supp) 650 mg RC Q6H PRN PRN Reason: TEMP>=99.5F Albuterol/Ipratropium (Duoneb 3 Mg/0.5 Mg (3 Ml) Ud) 3 ml IH [id number] [facility] Last Admin: 09/18/18 21:00 Dose: 3 ml Allopurinol (Zyloprim) 100 mg PO DAILY [facility] Last Admin: 09/18/18 11:55 Dose: 100 mg Arformoterol Tartrate (Brovana) 15 mcg IH [id number] [facility] Last Admin: 09/18/18 20:59 Dose: 15 mcg Budesonide (Pulmicort Respules) 0.5 mg IH [id number] [facility] Last Admin: 09/18/18 21:00 Dose: 0.5 mg Dextrose (Dextrose 50% Inj) 0 ml IV STAT PRN; Protocol PRN Reason: Hypoglycemia Protocol Ergocalciferol (Drisdol 50,000 Intl Units Cap) 1 cap PO Q7D [facility] Last Admin: 09/17/18 15:58 Dose: 1 cap Furosemide (Lasix) 40 mg IVP DAILY [facility] Last Admin: 09/18/18 11:43 Dose: 40 mg Dextrose (Dextrose 5% In Water 1000 Ml) 1,000 mls @ 0 mls/hr IV .Q0M PRN; Protocol PRN Reason: Hypoglycemia Protocol Insulin Human Lispro (Humalog High) 0 units SC ACHS [facility]; Protocol Last Admin: 09/18/18 21:53 Dose: Not Given Lactic Acid (Lac-Hydrin 12% Cream (140 G)) 0 ea TOP DAILY [facility] Last Admin: 09/18/18 17:17 Dose: Not Given Methylprednisolone (Solu-Medrol) 30 mg IVP Q8H [facility] Last Admin: 09/18/18 17:09 Dose: 30 mg Nicotine (Nicoderm Cq) 1 patch TD DAILY [facility] Last Admin: 09/18/18 11:45 Dose: 1 patch Nystatin (Nystop Topical Powder) 0 gm TOP Q6 [facility] Last Admin: 09/18/18 17:15 Dose: 1 pdr Nystatin (Mycostatin Cream) 0 ea TOP TID [facility] Last Admin: 09/18/18 17:15 Dose: 1 unit Ondansetron HCl (Zofran Inj) 4 mg IVP Q4H PRN PRN Reason: Nausea/Vomiting Pantoprazole Sodium (Protonix Ec Tab) 40 mg PO 0600,1600 [facility] Last Admin: 09/18/18 17:09 Dose: 40 mg Polyethylene Glycol (Miralax) 17 gm PO BID [facility] Last Admin: 09/18/18 17:17 Dose: 17 gm - Labs Labs: 09/18/18 05:15 09/18/18 05:15 PT 11.7 SECONDS (9.4-12.5) 09/18/18 05:15 INR 1.04 09/18/18 05:15 APTT 24.5 Seconds (26.9-38.3) L 09/18/18 05:15 - Head Exam Head Exam: ATRAUMATIC - Eye Exam Eye Exam: Normal appearance - ENT Exam ENT Exam: Mucous Membranes Dry - Respiratory Exam Respiratory Exam: NORMAL BREATHING PATTERN - Cardiovascular Exam Cardiovascular Exam: +S1, +S2 - GI/Abdominal Exam GI & Abdominal Exam: Normal Bowel Sounds Assessment and Plan (1) Thigh hematoma Assessment & Plan: related to recent fall and anticoagulation anticoagulation stopped and IVC filter placed Status: Acute (2) Pulmonary embolism Assessment & Plan: likely embolized from lower extremities given recent fall and immobility anticoagulation contraindicated given acute thigh hematoma s/p retrievable IVC filter Status: Acute (3) Anemia Assessment & Plan: secondary to hemorrhage into thigh normal iron/b12/folate stores H/H improving Status: Acute
[2018-09-19] MEDS: Nystatin 100,000 Units/gm Topical Pow(15 gm) TOP SCH ×4 (01:00→17:42)
[2018-09-19] MEDS: MethylPREDNISolone 40 mg Vial IVP SCH ×3 (01:00→21:40)
[2018-09-19] MEDS: Albuterol-Ipratrop 3 mg / 0.5 (3 ml) UD IH SCH ×4 (01:33→20:20)
[2018-09-19 05:58] LABS: BASO # 0.01 K/mm3 (0.0-2.0); BASO % 0.1 % (0.0-3.0); EOS % 0.1 % (1.5-5.0); LYMPH # 0.7 (1.2-3.4); LYMPH % 6.5 % (22.0-35.0); MEAN CELL VOLUME 94.3 fl (80.0-105.0); MEAN CORPUSCULAR HEMOGLOBIN 28.5 pg (25.0-35.0); MEAN CORPUSCULAR HGB CONC 30.2 g/dl (31.0-37.0); MEAN PLATELET VOLUME 9.6 fl (7.0-11.0); MONO # 0.4 (0.1-0.6); MONO % 3.4 % (1.0-6.0); RBC 3.51 10^6/uL (3.5-6.1); RED CELL DISTRIBUTION WIDTH 15.6 % (11.5-14.5); WHITE BLOOD COUNT 10.5 10^3/uL (4.5-11.0)
[2018-09-19 06:08] LABS: INR 1.01; PARTIAL THROMBOPLASTIN TIME 23.1 Seconds (26.9-38.3); PROTHROMBIN TIME 11.4 SECONDS (9.4-12.5)
[2018-09-19 06:26] LABS: ALB/GLOB RATIO 0.9 (1.1-1.8); ALBUMIN 2.7 g/dL (3.0-4.8); ALT/SGPT 16 U/L (7-56); AST/SGOT 28 U/L (14-36); BILIRUBIN,DIRECT 0.3 mg/dL (0.0-0.4); BLOOD UREA NITROGEN 35 mg/dL (7-21); CALCIUM 8.6 mg/dL (8.4-10.5); GFR NON-AFRICAN AMERICAN > 60
[2018-09-19] MEDS: Pantoprazole 40 mg EC Tab PO SCH ×2 (06:54→16:20)
[2018-09-19] MEDS: Budesonide 0.5 mg/2 ml Inhal Susp UD IH SCH ×2 (07:00→20:20)
[2018-09-19] MEDS: Arformoterol 15 mcg/2 ml Inh Sol IH SCH ×2 (07:00→20:20)
[2018-09-19] MEDS: Insulin Lispro (HUMAlog) HIGH Coverage SC SCH ×4 (07:30→21:44)
--- NOTE | 2018-09-19 08:19 | CP.PCM.PN ---
Subjective - Date & Time of Evaluation Date of Evaluation: 09/19/18 Time of Evaluation: 08:00 - Subjective Subjective: (covering for Dr. Law) Patient is seen this morning. She is feeling better. She has not had a bowel movement in a few days. She is currently on nasal cannula. Objective - Vital Signs/Intake and Output Vital Signs (last 24 hours): Temp Pulse Resp BP Pulse Ox 98.4 F 75 23 142/72 90 L 09/18/18 12:00 09/19/18 06:00 09/19/18 05:00 09/19/18 04:00 09/19/18 05:00 Intake and Output: 09/19/18 09/19/18 06:59 18:59 Output Total 510 Balance -510 - Medications Medications: Current Medications Acetaminophen (Tylenol 325mg Tab) 650 mg PO Q6 PRN PRN Reason: TEMP>=99.5F Last Admin: 09/14/18 17:04 Dose: 650 mg Acetaminophen (Tylenol 650 Mg Supp) 650 mg RC Q6H PRN PRN Reason: TEMP>=99.5F Albuterol/Ipratropium (Duoneb 3 Mg/0.5 Mg (3 Ml) Ud) 3 ml IH [id number] [facility] Last Admin: 09/19/18 07:01 Dose: 3 ml Allopurinol (Zyloprim) 100 mg PO DAILY [facility] Last Admin: 09/18/18 11:55 Dose: 100 mg Arformoterol Tartrate (Brovana) 15 mcg IH [id number] [facility] Last Admin: 09/19/18 07:00 Dose: 15 mcg Budesonide (Pulmicort Respules) 0.5 mg IH [id number] [facility] Last Admin: 09/19/18 07:00 Dose: 0.5 mg Dextrose (Dextrose 50% Inj) 0 ml IV STAT PRN; Protocol PRN Reason: Hypoglycemia Protocol Ergocalciferol (Drisdol 50,000 Intl Units Cap) 1 cap PO Q7D [facility] Last Admin: 09/17/18 15:58 Dose: 1 cap Furosemide (Lasix) 40 mg IVP DAILY [facility] Last Admin: 09/18/18 11:43 Dose: 40 mg Dextrose (Dextrose 5% In Water 1000 Ml) 1,000 mls @ 0 mls/hr IV .Q0M PRN; Protocol PRN Reason: Hypoglycemia Protocol Insulin Human Lispro (Humalog High) 0 units SC ACHS [facility]; Protocol Last Admin: 09/18/18 21:53 Dose: Not Given Lactic Acid (Lac-Hydrin 12% Cream (140 G)) 0 ea TOP DAILY [facility] Last Admin: 09/18/18 17:17 Dose: Not Given Methylprednisolone (Solu-Medrol) 30 mg IVP Q12 [facility] Nicotine (Nicoderm Cq) 1 patch TD DAILY [facility] Last Admin: 09/18/18 11:45 Dose: 1 patch Nystatin (Nystop Topical Powder) 0 gm TOP Q6 [facility] Last Admin: 09/19/18 06:52 Dose: Not Given Nystatin (Mycostatin Cream) 0 ea TOP TID [facility] Last Admin: 09/18/18 17:15 Dose: 1 unit Ondansetron HCl (Zofran Inj) 4 mg IVP Q4H PRN PRN Reason: Nausea/Vomiting Pantoprazole Sodium (Protonix Ec Tab) 40 mg PO 0600,1600 [facility] Last Admin: 09/19/18 06:54 Dose: 40 mg Polyethylene Glycol (Miralax) 17 gm PO BID [facility] Last Admin: 09/18/18 17:17 Dose: 17 gm - Labs Labs: 09/19/18 05:20 09/19/18 05:20 PT 11.4 SECONDS (9.4-12.5) 09/19/18 05:20 INR 1.01 09/19/18 05:20 APTT 23.1 Seconds (26.9-38.3) L 09/19/18 05:20 - Constitutional Appears: No Acute Distress - Head Exam Head Exam: ATRAUMATIC, NORMOCEPHALIC - Respiratory Exam Respiratory Exam: Clear to Ausculation Bilateral, NORMAL BREATHING PATTERN - Cardiovascular Exam Cardiovascular Exam: REGULAR RHYTHM, +S1, +S2 - GI/Abdominal Exam GI & Abdominal Exam: Soft. absent: Tenderness - Neurological Exam Neurological Exam: Alert, Awake, Oriented x3 Assessment and Plan - Assessment and Plan (Free Text) Assessment: s/p VDRF now on nasal cannula Acute PE Left Thigh hematoma HTN COPD Plan: Patient has not had a bowel movement in a few days. We will order an enema. Patient is currently off high flow oxygen and is now saturating well with nasal cannula. She is off anticoagulation for PE due to large thigh hematoma. IVC filter has been placed. Patient to go to [facility] once cleared by cardiology, and surgery. Hematology to determine patient's custodial plan regarding anticoagulation.
[2018-09-19] MEDS: POLYETHYLENE GLYCOL 3350 17 GM/Dose PACKET PO SCH (09:08)
[2018-09-19] MEDS: VITS A AND D/WHITE PET/LANOLIN 113.4 APPLIC/113.4 G TUBE TP SCH (09:12)
[2018-09-19] MEDS: Ammonium Lactate 12% Cream (140 g) TOP SCH (09:12)
--- NOTE | 2018-09-19 09:22 | RAD ---
Date of service: 09/19/2018 HISTORY: follow up COMPARISON: 09/18/2018 FINDINGS: LUNGS: Infiltrate at right lung base unchanged PLEURA: No significant pleural effusion identified, no pneumothorax apparent. CARDIOVASCULAR: Aortic calcification. Right-sided aortic arch Mild cardiomegaly no pulmonary vascular congestion. OSSEOUS STRUCTURES: No significant abnormalities. VISUALIZED UPPER ABDOMEN: Normal. OTHER FINDINGS: None. IMPRESSION: Infiltrate at right lung base unchanged
[2018-09-19] MEDS: Nystatin 100,000 Units/gm Cream(15 gm) TOP SCH ×3 (10:00→17:42)
--- NOTE | 2018-09-19 10:00 | CP.PCM.PCO ---
Assessment/Plan - Assessment/Plan Assessment (Free Text): Patient's hemoglobin is stable. Patient is cleared from surgical standpoint for LTACH or rehabilitation facility. - Consults Consult Orders: Consultations 09/08/18 20:22 Nursing Referral for Wound Care Routine Comment: Physician Instructions: Reason For Exam: skin is rash. 09/08/18 20:25 Social Work Referral Routine Comment: Needs help Physician Instructions: Reason For Exam: needs help at home 09/08/18 22:42 Inpatient [facility] Core Measures Referral Routine Comment: resp failure/chf Physician Instructions: Reason For Exam: assess Transition In Care/Readmission Reduction Routine Comment: Physician Instructions: Reason For Exam: assess - Problems Patient Problems: Problem List (Active/Current) Problem Status Onset Code Acute respiratory failure Acute J96.00 Anemia Acute D64.9 CHF (congestive heart failure) Acute I50.9 Pulmonary embolism Acute I26.99 Sepsis Acute A41.9 Thigh hematoma Acute S70.10XA
--- NOTE | 2018-09-19 10:02 | CP.PCM.PCO ---
Physician Communication Note - Physician Communication Note Physician Communication Note: Discuss pt with Dr Rowley, will give Rx for lexiscan when recovered.
--- NOTE | 2018-09-19 10:28 | CP.PCM.PCO ---
Physician Communication Note - Physician Communication Note Physician Communication Note: discuss with dr lavon degroot reeval for ?tcu per md.
--- NOTE | 2018-09-19 10:53 | CP.PCM.APN ---
Subjective - Date & Time of Evaluation Date of Evaluation: 09/19/18 Time of Evaluation: 09:00 - Subjective Subjective: pt seen and examied at bedside, pt offers no complaints at this time. per rn pt needs more info re: LTACH. pt noted on 6 l O2 Review of Systems - Review of Systems All systems: reviewed and no additional remarkable complaints except Objective - Vital Signs/Intake and Output Vital Signs (last 24 hours): Temp Pulse Resp BP Pulse Ox 98.4 F 75 23 136/92 H 90 L 09/18/18 12:00 09/19/18 06:00 09/19/18 05:00 09/19/18 09:07 09/19/18 05:00 Intake and Output: 09/19/18 09/19/18 06:59 18:59 Output Total 510 Balance -510 - Medications Medications: Current Medications Acetaminophen (Tylenol 325mg Tab) 650 mg PO Q6 PRN PRN Reason: TEMP>=99.5F Last Admin: 09/14/18 17:04 Dose: 650 mg Acetaminophen (Tylenol 650 Mg Supp) 650 mg RC Q6H PRN PRN Reason: TEMP>=99.5F Albuterol/Ipratropium (Duoneb 3 Mg/0.5 Mg (3 Ml) Ud) 3 ml IH [id number] [facility] Last Admin: 09/19/18 07:01 Dose: 3 ml Allopurinol (Zyloprim) 100 mg PO DAILY [facility] Last Admin: 09/18/18 11:55 Dose: 100 mg Arformoterol Tartrate (Brovana) 15 mcg IH [id number] [facility] Last Admin: 09/19/18 07:00 Dose: 15 mcg Budesonide (Pulmicort Respules) 0.5 mg IH [id number] [facility] Last Admin: 09/19/18 07:00 Dose: 0.5 mg Dextrose (Dextrose 50% Inj) 0 ml IV STAT PRN; Protocol PRN Reason: Hypoglycemia Protocol Ergocalciferol (Drisdol 50,000 Intl Units Cap) 1 cap PO Q7D [facility] Last Admin: 09/17/18 15:58 Dose: 1 cap Furosemide (Lasix) 40 mg IVP DAILY [facility] Last Admin: 09/19/18 09:07 Dose: 40 mg Dextrose (Dextrose 5% In Water 1000 Ml) 1,000 mls @ 0 mls/hr IV .Q0M PRN; Protocol PRN Reason: Hypoglycemia Protocol Insulin Human Lispro (Humalog High) 0 units SC ACHS [facility]; Protocol Last Admin: 09/19/18 07:30 Dose: Not Given Lactic Acid (Lac-Hydrin 12% Cream (140 G)) 0 ea TOP DAILY [facility] Last Admin: 09/19/18 09:12 Dose: 1 applic Methylprednisolone (Solu-Medrol) 30 mg IVP Q12 [facility] Last Admin: 09/19/18 09:07 Dose: 30 mg Nicotine (Nicoderm Cq) 1 patch TD DAILY [facility] Last Admin: 09/19/18 09:08 Dose: 1 patch Nystatin (Nystop Topical Powder) 0 gm TOP Q6 [facility] Last Admin: 09/19/18 06:52 Dose: Not Given Nystatin (Mycostatin Cream) 0 ea TOP TID [facility] Last Admin: 09/18/18 17:15 Dose: 1 unit Ondansetron HCl (Zofran Inj) 4 mg IVP Q4H PRN PRN Reason: Nausea/Vomiting Pantoprazole Sodium (Protonix Ec Tab) 40 mg PO 0600,1600 [facility] Last Admin: 09/19/18 06:54 Dose: 40 mg Polyethylene Glycol (Miralax) 17 gm PO BID [facility] Last Admin: 09/19/18 09:08 Dose: 17 gm - Labs Labs: 09/19/18 05:20 09/19/18 05:20 PT 11.4 SECONDS (9.4-12.5) 09/19/18 05:20 INR 1.01 09/19/18 05:20 APTT 23.1 Seconds (26.9-38.3) L 09/19/18 05:20 - Eye Exam Eye Exam: Normal appearance - Respiratory Exam Respiratory Exam: Decreased Breath Sounds, NORMAL BREATHING PATTERN - Cardiovascular Exam Cardiovascular Exam: +S1, +S2 - GI/Abdominal Exam GI & Abdominal Exam: Soft, Normal Bowel Sounds - Neurological Exam Neurological Exam: Alert, Awake - Skin Skin Exam: Dry, Intact Additional comments: hematoma stable Assessment and Plan - Assessment and Plan (Free Text) Plan: 73 yr old admitted with resp failure s/p intubation and extubation, right lobe PE s/p iv filter,hematoma now stabilized with surgery following, pulmonary recs noted for severe/advanced copd. discuss plan of care with DR Mendosa, per pmd he states that since pt off highflow o2 and is now on 6L 02, he would like her to be re-seen by p.t and tcu eval as next level of care in terms of dc plan. discuss with Dr Rowley and pt will need lexiscan when fully recovered but is stable for next level of care, info relayed to cardiology dept re plan ...will leave Rx on chart. will speak with physical therapy for re-eval for tcu as per pmd request and discussion today on improved clinical status. discuss plan with IDT. will follow BPCI/TIC - BPCIA/TIC Educated pt/family on BPCIA/CIR/Med to Bed Programs: N/A Flyers given, including CMS Beneficiary letter: N/A Pt/family verbalized understanding & agreed to program: N/A
--- NOTE | 2018-09-19 10:55 | PN ---
DATE: 09/19/2018(635am-725am) PULMONARY NOTE SUBJECTIVE: The patient appears comfortable this morning. She is mildly short of breath, but in no acute distress. She is not using accessory muscles for breathing. PHYSICAL EXAMINATION: VITAL SIGNS: Temperature is 98.9, pulse on the monitor is 81, respiratory rate 20/22, blood pressure 142/72. Oxygen saturation on nasal cannula is 92%. HEENT: Normocephalic, atraumatic. No JVD. CARDIOVASCULAR: Systolic ejection murmur at the lower left sternal border. Questionable S3 gallop. LUNGS: Decreased breath sounds at the bases. Much less/minimal rhonchi. No wheezing. GI: Abdomen is soft, nontender and nondistended. Bowel sounds are positive. EXTREMITIES: Positive edema. No cyanosis or clubbing. Calves are nontender to palpation. The left thigh remains wrapped. SKIN: No acute rash. NEUROLOGIC: Exam limited at the present time. PERTINENT LABORATORY DATA: Chest x-ray was done this morning and reviewed. A hazy right lower lobe infiltrate remains. There is also a probable small right pleural effusion noted. Official results are pending. CBC: White count 10.5K, hemoglobin 10, hematocrit 33.1, platelets of 292,000. IMPRESSION: 1. Advanced chronic obstructive pulmonary disease. 2. Moderate bronchospasm. 3. Status post respiratory failure. 4. Right lower lobe pulmonary embolism. 5. Cardiomyopathy. 6. Anemia. 7. Left thigh hematoma. PLAN: The patient appears comfortable this morning. She is mildly short of breath, but in no acute distress. She does state to feeling much better overall. I did discuss the case with the night nurse at length. The night nurse stated the patient had an uneventful night. I did review the chest x-ray as above. A right lower lobe infiltrate with small right pleural effusion remains. Official results are pending. The patient is now off antibiotic therapy - as per Infectious Disease. Input by Dr. Rojo is noted. There are no recent temperatures. The leukocytosis has fully resolved. On physical exam, there is much less bronchospasm noted. In addition, it appears that the alveolar-arterial gradient is also less. I will continue the current nebulizer treatments and decrease the intravenous steroids this morning. Inputs by Renal and Cardiology are also noted. Clinical status of the patient has significantly improved - compared to last week. However, given the above, the future status/prognosis for this patient remains very, very guarded. Again, I did discuss the case with the nurse at length. The patient may be transferred to an LTAC facility in the near future. I will discuss the above with the entire ICU team in the next few moments. I will also discuss the above with the attending physician later this morning. Andrae Rajput MD MTDKenji
--- NOTE | 2018-09-19 11:41 | CP.PCM.PN ---
Subjective - Date & Time of Evaluation Date of Evaluation: 09/19/18 Time of Evaluation: 11:41 - Subjective Subjective: Nephrology Consultation Note: Assessment: stable likely CKD 2 with UA 30 prot. renal imaging atrophy scarring Rt kidney COPD/sys CHF exacerbation with PNA, acute PE, DM and sepsis morbid obesity acute on chronic hypercapnic respi failure with renal compensation active smoker hyperkalemia vit d def cholelithiasis Plan No acute need for renal replacement therapy at this time. Hypertension control with meds as ordered. Maintain hemodynamics stable. Avoid hypotension. Patient not on ACEI or ARB at present, held for low bp. resume if allowed by BP Monitor Input/Output, daily weights and renal function with basic metabolic hoffman el lasix resumed . d/c diamox added weekly vit D cardiology, pulmonary following Check urine spot protein/creatinine, albumin/creatinine ratio Dose meds/antibiotics for GFR >50 Glycemic control. once stable and acute process resolved, pt will need weight loss, smoking cessation, lifestyle modifications Further work up/management as per primary team Thanks for allowing me to participate in care of your patient. Will follow patient with you. Please call if any Qs. had d/w team Dr David Harrison Office: [phone] Chief Complaint; unable Reason for consult: Acute Kidney Injury HPI: Pt is a 73 F with hx of heavy smoking, no medical follow ups presented with complaints of SOB and respi distress intubated and admitted to ICU. foudn to have CHF exacerbation with PNA, PE, DM and sepsis renal consult for abnormal imaging and renal fxn eval Denies OTC/herbal meds or NSAIDs Noted recent iodinated contrast exposure as CTA. No obvious episodes of low BP. ROS: pt extubated on o2 via NC. feels better. no urine complaints Physical Examination: General Appearance: better appearing on O2 via NC. no acute distress, obese Vitals reviewed and noted as below Head; Atraumatic, normocephalic ENT: normal oral mucosa EYES: Pupils are equal, round and reactive to light accommodation. Eye muscles and extraocular movement intact. Sclera is anicteric. Neck; supple no lymphadenopathy, no thyromegaly or bruit Lungs: Normal respiratory rate/effort. Breath sounds bilateral reduced Heart: Normal rate. s1s2 normal. No rub or gallop. Extremities: trace edema. No varicose veins Neurological: Patient is awake alert follows commands Skin: Warm and dry. Normal turgor. No rash. Palpitation: Normal elasticity for age Abdomen: Abdomen is soft. Bowel sounds +. There is no abdominal tenderness, no guarding/rigidity no organomegaly Psych: limited insight. MSK: no joint tenderness or swelling. Digits and nails normal, no deformity : kidney or bladder not palpable. smith farrell Labs/imaging reviewed. Past medical history, past surgical history, family history, social history, allergy reviewed and noted as below Family hx: no hx of CKD. Rest non-contributory UA 30 prot. renal imaging atrophy scarring Rt kidney Objective - Vital Signs/Intake and Output Vital Signs (last 24 hours): Temp Pulse Resp BP Pulse Ox 98.4 F 75 23 136/92 H 90 L 09/18/18 12:00 09/19/18 06:00 09/19/18 05:00 09/19/18 09:07 09/19/18 05:00 Intake and Output: 09/19/18 09/19/18 06:59 18:59 Output Total 510 Balance -510 - Medications Medications: Current Medications Acetaminophen (Tylenol 325mg Tab) 650 mg PO Q6 PRN PRN Reason: TEMP>=99.5F Last Admin: 09/14/18 17:04 Dose: 650 mg Acetaminophen (Tylenol 650 Mg Supp) 650 mg RC Q6H PRN PRN Reason: TEMP>=99.5F Albuterol/Ipratropium (Duoneb 3 Mg/0.5 Mg (3 Ml) Ud) 3 ml IH [id number] [facility] Last Admin: 09/19/18 07:01 Dose: 3 ml Allopurinol (Zyloprim) 100 mg PO DAILY [facility] Last Admin: 09/18/18 11:55 Dose: 100 mg Arformoterol Tartrate (Brovana) 15 mcg IH [id number] [facility] Last Admin: 09/19/18 07:00 Dose: 15 mcg Budesonide (Pulmicort Respules) 0.5 mg IH [id number] [facility] Last Admin: 09/19/18 07:00 Dose: 0.5 mg Dextrose (Dextrose 50% Inj) 0 ml IV STAT PRN; Protocol PRN Reason: Hypoglycemia Protocol Ergocalciferol (Drisdol 50,000 Intl Units Cap) 1 cap PO Q7D [facility] Last Admin: 09/17/18 15:58 Dose: 1 cap Furosemide (Lasix) 40 mg IVP DAILY [facility] Last Admin: 09/19/18 09:07 Dose: 40 mg Dextrose (Dextrose 5% In Water 1000 Ml) 1,000 mls @ 0 mls/hr IV .Q0M PRN; Protocol PRN Reason: Hypoglycemia Protocol Insulin Human Lispro (Humalog High) 0 units SC ACHS [facility]; Protocol Last Admin: 09/19/18 07:30 Dose: Not Given Lactic Acid (Lac-Hydrin 12% Cream (140 G)) 0 ea TOP DAILY [facility] Last Admin: 09/19/18 09:12 Dose: 1 applic Methylprednisolone (Solu-Medrol) 30 mg IVP Q12 [facility] Last Admin: 09/19/18 09:07 Dose: 30 mg Nicotine (Nicoderm Cq) 1 patch TD DAILY [facility] Last Admin: 09/19/18 09:08 Dose: 1 patch Nystatin (Nystop Topical Powder) 0 gm TOP Q6 [facility] Last Admin: 09/19/18 06:52 Dose: Not Given Nystatin (Mycostatin Cream) 0 ea TOP TID [facility] Last Admin: 09/18/18 17:15 Dose: 1 unit Ondansetron HCl (Zofran Inj) 4 mg IVP Q4H PRN PRN Reason: Nausea/Vomiting Pantoprazole Sodium (Protonix Ec Tab) 40 mg PO 0600,1600 [facility] Last Admin: 09/19/18 06:54 Dose: 40 mg Polyethylene Glycol (Miralax) 17 gm PO BID [facility] Last Admin: 09/19/18 09:08 Dose: 17 gm - Labs Labs: 09/19/18 05:20 09/19/18 05:20 PT 11.4 SECONDS (9.4-12.5) 09/19/18 05:20 INR 1.01 09/19/18 05:20 APTT 23.1 Seconds (26.9-38.3) L 09/19/18 05:20
--- NOTE | 2018-09-19 12:49 | CP.PCM.PCO ---
Physician Communication Note - Physician Communication Note Physician Communication Note: [facility] - info relayed to pmd. will follow
--- NOTE | 2018-09-19 14:54 | CP.PCM.PN ---
<Ketan Shrestha - Last Filed: 09/19/18 14:53> Subjective - Date & Time of Evaluation Date of Evaluation: 09/19/18 Time of Evaluation: 10:30 - Subjective Subjective: Ketan Shrestha D.O. PGY-3, Internal Medicine Resident, Infectious Disease Progress Note 73 year old female with a PMH of COPD and tobacco abuse who [place] [facility] [place] after she was found by her family members laying in her couch for about 3 days. Infectious disease consultation was requested for severe sepsis. Patient was seen and examined at bedside. Sitting comfortably reading. States breathing is good. No acute complaints. Objective - Vital Signs/Intake and Output Vital Signs (last 24 hours): Temp Pulse Resp BP Pulse Ox 97.8 F 77 17 127/60 86 L 09/19/18 12:00 09/19/18 14:46 09/19/18 14:46 09/19/18 14:47 09/19/18 14:46 Intake and Output: 09/19/18 09/19/18 06:59 18:59 Output Total 510 Balance -510 - Medications Medications: Current Medications Acetaminophen (Tylenol 325mg Tab) 650 mg PO Q6 PRN PRN Reason: TEMP>=99.5F Last Admin: 09/14/18 17:04 Dose: 650 mg Acetaminophen (Tylenol 650 Mg Supp) 650 mg RC Q6H PRN PRN Reason: TEMP>=99.5F Albuterol/Ipratropium (Duoneb 3 Mg/0.5 Mg (3 Ml) Ud) 3 ml IH [id number] [facility] Last Admin: 09/19/18 13:12 Dose: 3 ml Allopurinol (Zyloprim) 100 mg PO DAILY [facility] Last Admin: 09/19/18 10:00 Dose: 100 mg Arformoterol Tartrate (Brovana) 15 mcg IH [id number] [facility] Last Admin: 09/19/18 07:00 Dose: 15 mcg Budesonide (Pulmicort Respules) 0.5 mg IH [id number] [facility] Last Admin: 09/19/18 07:00 Dose: 0.5 mg Dextrose (Dextrose 50% Inj) 0 ml IV STAT PRN; Protocol PRN Reason: Hypoglycemia Protocol Ergocalciferol (Drisdol 50,000 Intl Units Cap) 1 cap PO Q7D [facility] Last Admin: 09/17/18 15:58 Dose: 1 cap Furosemide (Lasix) 40 mg IVP DAILY [facility] Last Admin: 09/19/18 09:07 Dose: 40 mg Dextrose (Dextrose 5% In Water 1000 Ml) 1,000 mls @ 0 mls/hr IV .Q0M PRN; Protocol PRN Reason: Hypoglycemia Protocol Insulin Human Lispro (Humalog High) 0 units SC ACHS [facility]; Protocol Last Admin: 09/19/18 07:30 Dose: Not Given Lactic Acid (Lac-Hydrin 12% Cream (140 G)) 0 ea TOP DAILY [facility] Last Admin: 09/19/18 09:12 Dose: 1 applic Methylprednisolone (Solu-Medrol) 30 mg IVP Q12 [facility] Last Admin: 09/19/18 09:07 Dose: 30 mg Nicotine (Nicoderm Cq) 1 patch TD DAILY [facility] Last Admin: 09/19/18 09:08 Dose: 1 patch Nystatin (Nystop Topical Powder) 0 gm TOP Q6 [facility] Last Admin: 09/19/18 12:00 Dose: Not Given Nystatin (Mycostatin Cream) 0 ea TOP TID [facility] Last Admin: 09/19/18 14:23 Dose: Not Given Ondansetron HCl (Zofran Inj) 4 mg IVP Q4H PRN PRN Reason: Nausea/Vomiting Pantoprazole Sodium (Protonix Ec Tab) 40 mg PO 0600,1600 [facility] Last Admin: 09/19/18 06:54 Dose: 40 mg Polyethylene Glycol (Miralax) 17 gm PO BID [facility] Last Admin: 09/19/18 09:08 Dose: 17 gm - Labs Labs: 09/19/18 05:20 09/19/18 05:20 PT 11.4 SECONDS (9.4-12.5) 09/19/18 05:20 INR 1.01 09/19/18 05:20 APTT 23.1 Seconds (26.9-38.3) L 09/19/18 05:20 - Constitutional Appears: Chronically Ill, morbidly obese elderly female - Head Exam Head Exam: ATRAUMATIC, NORMOCEPHALIC - Eye Exam Eye Exam: EOMI. absent: Scleral icterus - ENT Exam ENT Exam: Mucous Membranes Moist - Neck Exam Additional comments: obese, soft - Respiratory Exam Respiratory Exam: Decreased breath sounds - Cardiovascular Exam Cardiovascular Exam: +S1, +S2 - GI/Abdominal Exam GI & Abdominal Exam: Soft, NT, obese - Extremities Exam Additional comments: chronic stasis changes - Neurological Exam Additional comments: Awake, Alert, Orientedx3 - Skin Skin Exam: Dry, Warm Assessment and Plan - Assessment and Plan (Free Text) Assessment: 73 year old female with a PMH of COPD and tobacco abuse who presented [place] [facility] [place] after she was found by her family members laying in her couch for about 3 days. Infectious disease consultation was requested for severe sepsis. Plan: Severe sepsis - resolved Acute respiratory failure requiring intubation, now exubated Pulmonary embolism - off AC s/p IVC filter Right and left ventricular dysfunction CAP - finished treatment Pleural effusions Monitoring off abx Afebrile No leukocytosis At high risk for nosocomial infections We will follow with you Patient was seen and examined and case to be discussed with attending physician. Thank you for the pleasure of participating in the care of this interesting patient. <Agapito Rojo - Last Filed: 09/19/18 19:02> Objective - Vital Signs/Intake and Output Vital Signs (last 24 hours): Temp Pulse Resp BP Pulse Ox 97.3 F L 76 31 H 111/57 L 95 09/19/18 16:00 09/19/18 16:00 09/19/18 16:00 09/19/18 16:00 09/19/18 16:00 - Medications Medications: Current Medications Acetaminophen (Tylenol 325mg Tab) 650 mg PO Q6 PRN PRN Reason: TEMP>=99.5F Last Admin: 09/14/18 17:04 Dose: 650 mg Acetaminophen (Tylenol 650 Mg Supp) 650 mg RC Q6H PRN PRN Reason: TEMP>=99.5F Albuterol/Ipratropium (Duoneb 3 Mg/0.5 Mg (3 Ml) Ud) 3 ml IH [id number] [facility] Last Admin: 09/19/18 13:12 Dose: 3 ml Allopurinol (Zyloprim) 100 mg PO DAILY [facility] Last Admin: 09/19/18 10:00 Dose: 100 mg Arformoterol Tartrate (Brovana) 15 mcg IH [id number] [facility] Last Admin: 09/19/18 07:00 Dose: 15 mcg Budesonide (Pulmicort Respules) 0.5 mg IH [id number] [facility] Last Admin: 09/19/18 07:00 Dose: 0.5 mg Dextrose (Dextrose 50% Inj) 0 ml IV STAT PRN; Protocol PRN Reason: Hypoglycemia Protocol Ergocalciferol (Drisdol 50,000 Intl Units Cap) 1 cap PO Q7D [facility] Last Admin: 09/17/18 15:58 Dose: 1 cap Furosemide (Lasix) 40 mg IVP DAILY [facility] Last Admin: 09/19/18 09:07 Dose: 40 mg Dextrose (Dextrose 5% In Water 1000 Ml) 1,000 mls @ 0 mls/hr IV .Q0M PRN; Protocol PRN Reason: Hypoglycemia Protocol Insulin Human Lispro (Humalog High) 0 units SC ACHS [facility]; Protocol Last Admin: 09/19/18 16:18 Dose: Not Given Lactic Acid (Lac-Hydrin 12% Cream (140 G)) 0 ea TOP DAILY [facility] Last Admin: 09/19/18 09:12 Dose: 1 applic Methylprednisolone (Solu-Medrol) 30 mg IVP Q12 [facility] Last Admin: 09/19/18 09:07 Dose: 30 mg Nicotine (Nicoderm Cq) 1 patch TD DAILY [facility] Last Admin: 09/19/18 09:08 Dose: 1 patch Nystatin (Nystop Topical Powder) 0 gm TOP Q6 [facility] Last Admin: 09/19/18 17:42 Dose: Not Given Nystatin (Mycostatin Cream) 0 ea TOP TID [facility] Last Admin: 09/19/18 17:42 Dose: Not Given Ondansetron HCl (Zofran Inj) 4 mg IVP Q4H PRN PRN Reason: Nausea/Vomiting Pantoprazole Sodium (Protonix Ec Tab) 40 mg PO 0600,1600 [facility] Last Admin: 09/19/18 16:20 Dose: 40 mg Polyethylene Glycol (Miralax) 17 gm PO BID [facility] Last Admin: 09/19/18 09:08 Dose: 17 gm - Labs Labs: 09/19/18 05:20 09/19/18 05:20 PT 11.4 SECONDS (9.4-12.5) 09/19/18 05:20 INR 1.01 09/19/18 05:20 APTT 23.1 Seconds (26.9-38.3) L 09/19/18 05:20 Attending/Attestation - Attestation I have personally seen and examined this patient.: Yes I have fully participated in the care of the patient.: Yes I have reviewed all pertinent clinical information, including history, physical exam and plan: Yes
[2018-09-20] MEDS: Nystatin 100,000 Units/gm Topical Pow(15 gm) TOP SCH ×4 (00:16→17:32)
[2018-09-20] MEDS: Insulin Lispro (HUMAlog) HIGH Coverage SC SCH ×3 (01:00→11:30)
[2018-09-20] MEDS: Albuterol-Ipratrop 3 mg / 0.5 (3 ml) UD IH SCH ×4 (02:00→20:48)
[2018-09-20 05:38] LABS: BASO # 0.01 K/mm3 (0.0-2.0); BASO % 0.1 % (0.0-3.0); EOS % 0.1 % (1.5-5.0); LYMPH # 0.7 (1.2-3.4); LYMPH % 6.8 % (22.0-35.0); MEAN CELL VOLUME 96.8 fl (80.0-105.0); MEAN CORPUSCULAR HEMOGLOBIN 28.7 pg (25.0-35.0); MEAN CORPUSCULAR HGB CONC 29.6 g/dl (31.0-37.0); MEAN PLATELET VOLUME 9.5 fl (7.0-11.0); MONO # 0.5 (0.1-0.6); MONO % 4.3 % (1.0-6.0); RBC 3.49 10^6/uL (3.5-6.1); RED CELL DISTRIBUTION WIDTH 15.7 % (11.5-14.5); WHITE BLOOD COUNT 10.4 10^3/uL (4.5-11.0)
[2018-09-20 06:00] LABS: ALT/SGPT 19 U/L (7-56); AST/SGOT 31 U/L (14-36); BILIRUBIN,DIRECT 0.3 mg/dL (0.0-0.4); BLOOD UREA NITROGEN 43 mg/dL (7-21); CALCIUM 8.6 mg/dL (8.4-10.5); GFR NON-AFRICAN AMERICAN > 60
[2018-09-20] MEDS: Pantoprazole 40 mg EC Tab PO SCH ×3 (06:42→17:33)
[2018-09-20] MEDS: Arformoterol 15 mcg/2 ml Inh Sol IH SCH ×2 (07:39→20:47)
[2018-09-20] MEDS: Budesonide 0.5 mg/2 ml Inhal Susp UD IH SCH ×2 (07:39→20:48)
[2018-09-20] MEDS: POLYETHYLENE GLYCOL 3350 17 GM/Dose PACKET PO SCH ×2 (09:07→17:30)
[2018-09-20] MEDS: MethylPREDNISolone 40 mg Vial IVP SCH ×2 (09:07→21:22)
--- NOTE | 2018-09-20 10:00 | CP.PCM.PN ---
Subjective - Date & Time of Evaluation Date of Evaluation: 09/20/18 Time of Evaluation: 09:15 - Subjective Subjective: (covering for Dr. Law) Patient is resting in ICU bed 4. She is now on nasal cannula. Objective - Vital Signs/Intake and Output Vital Signs (last 24 hours): Temp Pulse Resp BP Pulse Ox 98.5 F 77 27 H 111/57 L 90 L 09/20/18 04:00 09/20/18 07:18 09/20/18 07:18 09/20/18 09:06 09/20/18 07:18 Intake and Output: 09/20/18 09/20/18 06:59 18:59 Intake Total 480 Output Total 650 Balance -170 - Medications Medications: Current Medications Acetaminophen (Tylenol 325mg Tab) 650 mg PO Q6 PRN PRN Reason: TEMP>=99.5F Last Admin: 09/14/18 17:04 Dose: 650 mg Acetaminophen (Tylenol 650 Mg Supp) 650 mg RC Q6H PRN PRN Reason: TEMP>=99.5F Albuterol/Ipratropium (Duoneb 3 Mg/0.5 Mg (3 Ml) Ud) 3 ml IH [id number] [facility] Last Admin: 09/20/18 07:39 Dose: 3 ml Allopurinol (Zyloprim) 100 mg PO DAILY [facility] Last Admin: 09/20/18 09:06 Dose: 100 mg Arformoterol Tartrate (Brovana) 15 mcg IH [id number] [facility] Last Admin: 09/20/18 07:39 Dose: 15 mcg Budesonide (Pulmicort Respules) 0.5 mg IH [id number] [facility] Last Admin: 09/20/18 07:39 Dose: 0.5 mg Dextrose (Dextrose 50% Inj) 0 ml IV STAT PRN; Protocol PRN Reason: Hypoglycemia Protocol Ergocalciferol (Drisdol 50,000 Intl Units Cap) 1 cap PO Q7D [facility] Last Admin: 09/17/18 15:58 Dose: 1 cap Furosemide (Lasix) 40 mg IVP DAILY [facility] Last Admin: 09/20/18 09:06 Dose: 40 mg Dextrose (Dextrose 5% In Water 1000 Ml) 1,000 mls @ 0 mls/hr IV .Q0M PRN; Protocol PRN Reason: Hypoglycemia Protocol Insulin Human Lispro (Humalog High) 0 units SC ACHS [facility]; Protocol Last Admin: 09/20/18 07:30 Dose: Not Given Lactic Acid (Lac-Hydrin 12% Cream (140 G)) 0 ea TOP DAILY [facility] Last Admin: 09/19/18 09:12 Dose: 1 applic Methylprednisolone (Solu-Medrol) 30 mg IVP Q12 [facility] Last Admin: 09/20/18 09:07 Dose: 30 mg Nicotine (Nicoderm Cq) 1 patch TD DAILY [facility] Last Admin: 09/20/18 09:05 Dose: 1 patch Nystatin (Nystop Topical Powder) 0 gm TOP Q6 [facility] Last Admin: 09/20/18 06:43 Dose: 1 pdr Nystatin (Mycostatin Cream) 0 ea TOP TID [facility] Last Admin: 09/19/18 17:42 Dose: Not Given Ondansetron HCl (Zofran Inj) 4 mg IVP Q4H PRN PRN Reason: Nausea/Vomiting Pantoprazole Sodium (Protonix Ec Tab) 40 mg PO 0600,1600 [facility] Last Admin: 09/20/18 06:42 Dose: 40 mg Polyethylene Glycol (Miralax) 17 gm PO BID [facility] Last Admin: 09/20/18 09:07 Dose: 17 gm - Labs Labs: 09/20/18 05:00 09/20/18 05:00 PT 11.4 SECONDS (9.4-12.5) 09/19/18 05:20 INR 1.01 09/19/18 05:20 APTT 23.1 Seconds (26.9-38.3) L 09/19/18 05:20 - Constitutional Appears: No Acute Distress - Head Exam Head Exam: ATRAUMATIC, NORMOCEPHALIC - Respiratory Exam Respiratory Exam: Clear to Ausculation Bilateral, NORMAL BREATHING PATTERN - Cardiovascular Exam Cardiovascular Exam: +S1, +S2 - GI/Abdominal Exam GI & Abdominal Exam: Soft, Normal Bowel Sounds. absent: Tenderness - Neurological Exam Neurological Exam: Alert, Awake, Oriented x3 Assessment and Plan - Assessment and Plan (Free Text) Assessment: s/p VDRF now on nasal cannula Acute pulmonary embolism Left thigh hematoma Advanced COPD Plan: Patient is off high flow oxygen and is saturating between 90-92% on 3 L nasal cannula. Continue to monitor patient on nasal cannula. Patient is off anticoagulation for pulmonary embolism due to large hematoma in the thigh. continue PT.
--- NOTE | 2018-09-20 13:07 | CP.PCM.PN ---
Subjective - Date & Time of Evaluation Date of Evaluation: 09/20/18 Time of Evaluation: 13:05 - Subjective Subjective: Nephrology Consultation Note: Assessment: stable likely CKD 2 with UA 30 prot. renal imaging atrophy scarring Rt kidney COPD/sys CHF exacerbation with PNA, acute PE, DM and sepsis morbid obesity acute on chronic hypercapnic respi failure with renal compensation active smoker hyperkalemia vit d def cholelithiasis Plan Renal function is stable bp is stable Monitor Input/Output, daily weights and renal function with basic metabolic panel on diuretics w/ good response ok from my standpoing to remove farrell can place purewik s: seen and examined Physical Examination: General Appearance: better appearing on O2 via NC. no acute distress, obese Vitals reviewed and noted as below Head; Atraumatic, normocephalic ENT: normal oral mucosa EYES: Pupils are equal, round and reactive to light accommodation. Eye muscles and extraocular movement intact. Sclera is anicteric. Neck; supple no lymphadenopathy, no thyromegaly or bruit Lungs: Normal respiratory rate/effort. Breath sounds bilateral reduced Heart: Normal rate. s1s2 normal. No rub or gallop. Extremities: trace edema. No varicose veins Neurological: Patient is awake alert follows commands Skin: Warm and dry. Normal turgor. No rash. Palpitation: Normal elasticity for age Abdomen: Abdomen is soft. Bowel sounds +. There is no abdominal tenderness, no guarding/rigidity no organomegaly Psych: limited insight. MSK: no joint tenderness or swelling. Digits and nails normal, no deformity : kidney or bladder not palpable. + farrell Labs/imaging reviewed. Past medical history, past surgical history, family history, social history, allergy reviewed and noted as below Family hx: no hx of CKD. Rest non-contributory UA 30 prot. renal imaging atrophy scarring Rt kidney Objective - Vital Signs/Intake and Output Vital Signs (last 24 hours): Temp Pulse Resp BP Pulse Ox 98.5 F 77 27 H 111/57 L 98 09/20/18 04:00 09/20/18 07:18 09/20/18 07:18 09/20/18 09:06 09/20/18 11:18 Intake and Output: 09/20/18 09/20/18 06:59 18:59 Intake Total 480 Output Total 650 Balance -170 - Medications Medications: Current Medications Acetaminophen (Tylenol 325mg Tab) 650 mg PO Q6 PRN PRN Reason: TEMP>=99.5F Last Admin: 09/14/18 17:04 Dose: 650 mg Acetaminophen (Tylenol 650 Mg Supp) 650 mg RC Q6H PRN PRN Reason: TEMP>=99.5F Albuterol/Ipratropium (Duoneb 3 Mg/0.5 Mg (3 Ml) Ud) 3 ml IH [id number] [facility] Last Admin: 09/20/18 07:39 Dose: 3 ml Allopurinol (Zyloprim) 100 mg PO DAILY [facility] Last Admin: 09/20/18 09:06 Dose: 100 mg Arformoterol Tartrate (Brovana) 15 mcg IH [id number] [facility] Last Admin: 09/20/18 07:39 Dose: 15 mcg Budesonide (Pulmicort Respules) 0.5 mg IH [id number] [facility] Last Admin: 09/20/18 07:39 Dose: 0.5 mg Dextrose (Dextrose 50% Inj) 0 ml IV STAT PRN; Protocol PRN Reason: Hypoglycemia Protocol Ergocalciferol (Drisdol 50,000 Intl Units Cap) 1 cap PO Q7D [facility] Last Admin: 09/17/18 15:58 Dose: 1 cap Furosemide (Lasix) 40 mg IVP DAILY [facility] Last Admin: 09/20/18 09:06 Dose: 40 mg Dextrose (Dextrose 5% In Water 1000 Ml) 1,000 mls @ 0 mls/hr IV .Q0M PRN; Protocol PRN Reason: Hypoglycemia Protocol Insulin Human Lispro (Humalog High) 0 units SC ACHS [facility]; Protocol Last Admin: 09/20/18 07:30 Dose: Not Given Lactic Acid (Lac-Hydrin 12% Cream (140 G)) 0 ea TOP DAILY [facility] Last Admin: 09/19/18 09:12 Dose: 1 applic Methylprednisolone (Solu-Medrol) 30 mg IVP Q12 [facility] Last Admin: 09/20/18 09:07 Dose: 30 mg Nicotine (Nicoderm Cq) 1 patch TD DAILY [facility] Last Admin: 09/20/18 09:05 Dose: 1 patch Nystatin (Nystop Topical Powder) 0 gm TOP Q6 [facility] Last Admin: 09/20/18 06:43 Dose: 1 pdr Nystatin (Mycostatin Cream) 0 ea TOP TID [facility] Last Admin: 09/19/18 17:42 Dose: Not Given Ondansetron HCl (Zofran Inj) 4 mg IVP Q4H PRN PRN Reason: Nausea/Vomiting Pantoprazole Sodium (Protonix Ec Tab) 40 mg PO 0600,1600 [facility] Last Admin: 09/20/18 06:42 Dose: 40 mg Polyethylene Glycol (Miralax) 17 gm PO BID [facility] Last Admin: 09/20/18 09:07 Dose: 17 gm - Labs Labs: 09/20/18 05:00 09/20/18 05:00 PT 11.4 SECONDS (9.4-12.5) 09/19/18 05:20 INR 1.01 09/19/18 05:20 APTT 23.1 Seconds (26.9-38.3) L 09/19/18 05:20
--- NOTE | 2018-09-20 14:00 | RAD ---
Date of service: 09/20/2018 HISTORY: f/u COMPARISON: 09/19/2018 FINDINGS: LUNGS: The lungs are well inflated and clear. PLEURA: No pleural effusions or pneumothorax. CARDIOVASCULAR: Persistent severe cardiomegaly. There is a right-sided aortic arch. No aortic atherosclerotic calcifications present. OSSEOUS STRUCTURES: Within normal limits for the patient's age. VISUALIZED UPPER ABDOMEN: Normal. OTHER FINDINGS: None. IMPRESSION: No active pulmonary disease.
--- NOTE | 2018-09-20 14:30 | PN ---
DATE: 09/20/2018 PULMONARY PROGRESS NOTE SUBJECTIVE: The patient was seen and examined at bedside in the intensive care unit. She is currently on nasal cannula and receiving inhalation treatment with Brovana and budesonide. She is also on moderate dose of Solu-Medrol 30 mg twice a day. She is also on nicotine patches to prevent withdrawal symptoms. PHYSICAL EXAMINATION: VITAL SIGNS: Her temperature is 98.5, pulse 77, respirations 22, pulse oximetry is ranging from 90 to 92 on nasal cannula. HEENT: Head normocephalic and atraumatic. NECK: Supple with no jugular vein distention. CARDIOVASCULAR: S1, S2, no S3, regular. PULMONARY: Diminished breath sounds at both lung bases with no rhonchi and no wheezing. GASTROINTESTINAL: Soft, nontender. No organomegaly. EXTREMITIES: Positive edema. The left thigh remains wrapped. SKIN: No acute skin rash. NEUROLOGIC: No focal deficits. Chest x-ray was just done and will be reviewed. LABORATORY DATA: Her white count is 10 and hemoglobin is 10. ASSESSMENT: Advanced chronic obstructive pulmonary disease, resolving bronchospasm, status post respiratory failure, pulmonary emboli, cardiomyopathy, and anemia. PLAN: The patient appears comfortable. She is not in acute distress. Yesterday's chest x-ray showed right lower lobe infiltrate with small right pleural effusion. Dr. Rojo administered the antibiotic therapy and currently the images became available of today's chest x-ray. Bony cage appears normal. Costophrenic sinuses are free and clear. Cardiac silhouette is markedly enlarged. The haziness in the right lower lobe is now insignificant, that will be discussed with Infectious Disease. So, overall her status continues to show improvement. However, condition and prognosis remain guarded. Anil Hernandez MD
[2018-09-20] MEDS: Nystatin 100,000 Units/gm Cream(15 gm) TOP SCH (17:33)
[2018-09-20] MEDS: VITS A AND D/WHITE PET/LANOLIN 113.4 APPLIC/113.4 G TUBE TP SCH (17:33)
[2018-09-20] MEDS: Ammonium Lactate 12% Cream (140 g) TOP SCH (17:34)
--- NOTE | 2018-09-20 20:13 | PN ---
DATE: 09/20/2018 SUBJECTIVE: The patient was seen early this morning in room 128, bed 4. No fevers and no chills. OBJECTIVE: VITAL SIGNS: Temperature is 98, blood pressure is 118/60, and respiratory rate of 18. HEENT: Unremarkable. NECK: Supple. LUNGS: Have decreased breath sounds. HEART: Normal S1 and S2. ABDOMEN: Soft and nontender. LABORATORY DATA: Reveals a white count of 10,400 and hemoglobin of 10. BUN of 43 and creatinine of 0.7. Urinalysis is noted and serology is noted and microbiology is noted. REVIEW OF ORDERS: Confirms the patient to be off of antibiotics. The patient is on Solu-Medrol. ASSESSMENT AND PLAN: This is a 73-year-old female with a history of chronic obstructive lung disease, tobacco user who was presented after being found in the floor for 3 days and the patient was found to have severe sepsis, which is resolved; acute respiratory failure, requiring intubation, now extubated; pulmonary emboli, status post inferior vena cava filter with a right and left ventricular dysfunction; and community-acquired pneumonia and is completed therapy. Currently off of antibiotics, afebrile and normal white count. The patient is at risk for developing nosocomial infections. Agapito Rojo MD
[2018-09-21] MEDS: Nystatin 100,000 Units/gm Topical Pow(15 gm) TOP SCH ×5 (00:30→23:20)
[2018-09-21] MEDS: Albuterol-Ipratrop 3 mg / 0.5 (3 ml) UD IH SCH ×4 (01:25→20:18)
[2018-09-21] MEDS: Insulin Lispro (HUMAlog) HIGH Coverage SC SCH ×5 (02:21→22:00)
[2018-09-21] MEDS: Pantoprazole 40 mg EC Tab PO SCH ×2 (05:01→17:04)
[2018-09-21 06:01] LABS: INR 1.04; PARTIAL THROMBOPLASTIN TIME 23.8 Seconds (26.9-38.3); PROTHROMBIN TIME 11.8 SECONDS (9.4-12.5)
[2018-09-21] MEDS: Budesonide 0.5 mg/2 ml Inhal Susp UD IH SCH ×2 (08:10→20:18)
[2018-09-21] MEDS: Arformoterol 15 mcg/2 ml Inh Sol IH SCH ×2 (08:10→20:17)
--- NOTE | 2018-09-21 08:36 | CP.PCM.PN ---
Subjective - Date & Time of Evaluation Date of Evaluation: 09/21/18 Time of Evaluation: 08:00 - Subjective Subjective: (covering for Dr. Law) Patient is seen this morning. She is awake, alert. She says she sat in the chair yesterday. Objective - Vital Signs/Intake and Output Vital Signs (last 24 hours): Temp Pulse Resp BP Pulse Ox 98.5 F 78 26 H 128/61 95 09/21/18 04:00 09/21/18 06:00 09/21/18 04:00 09/21/18 04:00 09/21/18 04:00 Intake and Output: 09/21/18 09/21/18 06:59 18:59 Intake Total 120 Output Total 500 Balance -380 - Medications Medications: Current Medications Acetaminophen (Tylenol 325mg Tab) 650 mg PO Q6 PRN PRN Reason: TEMP>=99.5F Last Admin: 09/14/18 17:04 Dose: 650 mg Acetaminophen (Tylenol 650 Mg Supp) 650 mg RC Q6H PRN PRN Reason: TEMP>=99.5F Albuterol/Ipratropium (Duoneb 3 Mg/0.5 Mg (3 Ml) Ud) 3 ml IH [id number] [facility] Last Admin: 09/21/18 08:09 Dose: 3 ml Allopurinol (Zyloprim) 100 mg PO DAILY [facility] Last Admin: 09/20/18 09:06 Dose: 100 mg Arformoterol Tartrate (Brovana) 15 mcg IH [id number] [facility] Last Admin: 09/21/18 08:10 Dose: 15 mcg Budesonide (Pulmicort Respules) 0.5 mg IH [id number] [facility] Last Admin: 09/21/18 08:10 Dose: 0.5 mg Dextrose (Dextrose 50% Inj) 0 ml IV STAT PRN; Protocol PRN Reason: Hypoglycemia Protocol Ergocalciferol (Drisdol 50,000 Intl Units Cap) 1 cap PO Q7D [facility] Last Admin: 09/17/18 15:58 Dose: 1 cap Furosemide (Lasix) 40 mg IVP DAILY [facility] Last Admin: 09/20/18 09:06 Dose: 40 mg Dextrose (Dextrose 5% In Water 1000 Ml) 1,000 mls @ 0 mls/hr IV .Q0M PRN; Protocol PRN Reason: Hypoglycemia Protocol Insulin Human Lispro (Humalog High) 0 units SC ACHS [facility]; Protocol Last Admin: 09/21/18 02:21 Dose: Not Given Lactic Acid (Lac-Hydrin 12% Cream (140 G)) 0 ea TOP DAILY [facility] Last Admin: 09/20/18 17:34 Dose: Not Given Methylprednisolone (Solu-Medrol) 30 mg IVP Q12 [facility] Last Admin: 09/20/18 21:22 Dose: 30 mg Nicotine (Nicoderm Cq) 1 patch TD DAILY [facility] Last Admin: 09/20/18 09:05 Dose: 1 patch Nystatin (Nystop Topical Powder) 0 gm TOP Q6 [facility] Last Admin: 09/21/18 05:00 Dose: 1 pdr Nystatin (Mycostatin Cream) 0 ea TOP TID [facility] Last Admin: 09/20/18 17:33 Dose: Not Given Ondansetron HCl (Zofran Inj) 4 mg IVP Q4H PRN PRN Reason: Nausea/Vomiting Pantoprazole Sodium (Protonix Ec Tab) 40 mg PO 0600,1600 [facility] Last Admin: 09/21/18 05:01 Dose: 40 mg Polyethylene Glycol (Miralax) 17 gm PO BID [facility] Last Admin: 09/20/18 17:30 Dose: Not Given - Labs Labs: 09/20/18 05:00 09/20/18 05:00 PT 11.8 SECONDS (9.4-12.5) 09/21/18 05:00 INR 1.04 09/21/18 05:00 APTT 23.8 Seconds (26.9-38.3) L 09/21/18 05:00 - Constitutional Appears: No Acute Distress - Head Exam Head Exam: ATRAUMATIC, NORMOCEPHALIC - Respiratory Exam Respiratory Exam: Decreased Breath Sounds, Clear to Ausculation Bilateral, NORMAL BREATHING PATTERN - Cardiovascular Exam Cardiovascular Exam: +S1, +S2 - GI/Abdominal Exam GI & Abdominal Exam: Soft, Normal Bowel Sounds. absent: Tenderness - Extremities Exam Additional comments: left leg CAROL bandage, right leg SCD - Neurological Exam Neurological Exam: Alert, Awake, Oriented x3 Assessment and Plan - Assessment and Plan (Free Text) Assessment: Acute PE s/p VDRF Left thigh hematoma COPD Plan: Patient is off anticoagulation due to left thigh hematoma. IVC filter has been placed. She continues to be off high flow oxygen and is comfortable on nasal cannula. continue PT
--- NOTE | 2018-09-21 09:29 | PN ---
DATE: 09/21/2018 SUBJECTIVE: The patient is in bed in no acute distress. Seen earlier today 128, bed 4. No fevers and no chills. She is comfortable. PHYSICAL EXAMINATION: VITAL SIGNS: Temperature is 98, blood pressure is 128/60, respiratory rate of 18, heart rate of 76. HEENT: Unremarkable. NECK: Supple. LUNGS: Have decreased breath sounds. HEART: Normal S1, S2. ABDOMEN: Soft, nontender. LABORATORY EXAMINATION: Reveals the patient has a WBCs of 10.4, hemoglobin of 10, platelets of 303. Chemistries reveals a BUN of 43, creatinine of 0.47. Urinalysis is noted and influenza is negative. The strep pneumoniae antigen is negative. ASSESSMENT AND PLAN: This is a 73-year-old female seen earlier today in 128, bed 4 with a history of chronic obstructive lung disease, tobacco use who initially presented after being unresponsive, found to have severe sepsis with acute respiratory failure intubated on a ventilator and was found to have pulmonary emboli status post inferior vena cava filter with a right and left ventricular dysfunction and community-acquired pneumonia as the source of sepsis, treatment has been completed for Infectious Disease point review and currently off of antibiotics, afebrile, normal white count and review of orders confirms the patient to be off of antibiotics and white count yesterday morning is 10.4. However, the patient is at risk for developing nosocomial infections, still in the ICU. Agapito Rojo MD
--- NOTE | 2018-09-21 09:46 | RAD ---
Date of service: 09/21/2018 HISTORY: f/u COMPARISON: 09/20/2018. FINDINGS: LUNGS: The lungs are hyperinflated and there is peribronchial thickening with chronic changes in both lungs. PLEURA: No large right pleural effusion or pneumothorax. Question of small left pleural effusion. CARDIOVASCULAR: Persistent severe cardiomegaly. There is a right-sided aortic arch. No aortic atherosclerotic calcifications present. OSSEOUS STRUCTURES: Within normal limits for the patient's age. VISUALIZED UPPER ABDOMEN: Normal. OTHER FINDINGS: None. IMPRESSION: No active pulmonary disease. COPD.
[2018-09-21] MEDS: POLYETHYLENE GLYCOL 3350 17 GM/Dose PACKET PO SCH ×2 (10:10→17:05)
[2018-09-21] MEDS: VITS A AND D/WHITE PET/LANOLIN 113.4 APPLIC/113.4 G TUBE TP SCH (10:11)
[2018-09-21] MEDS: MethylPREDNISolone 40 mg Vial IVP SCH ×2 (10:14→22:01)
[2018-09-21] MEDS: Ammonium Lactate 12% Cream (140 g) TOP SCH (10:17)
[2018-09-21] MEDS: Nystatin 100,000 Units/gm Cream(15 gm) TOP SCH ×2 (10:18→17:02)
--- NOTE | 2018-09-21 12:32 | CP.PCM.PN ---
Subjective - Date & Time of Evaluation Date of Evaluation: 09/21/18 Time of Evaluation: 12:31 - Subjective Subjective: Nephrology Consultation Note: Assessment: stable likely CKD 2 with UA 30 prot. renal imaging atrophy scarring Rt kidney COPD/sys CHF exacerbation with PNA, acute PE, DM and sepsis morbid obesity acute on chronic hypercapnic respi failure with renal compensation active smoker hyperkalemia vit d def cholelithiasis Plan Renal function is stable bp is stable diuresing well continue to monitor hco3 trending up Monitor Input/Output, daily weights and renal function with basic metabolic panel s: seen and examined Physical Examination: General Appearance: better appearing on O2 via NC. no acute distress, obese Vitals reviewed and noted as below Head; Atraumatic, normocephalic ENT: normal oral mucosa EYES: Pupils are equal, round and reactive to light accommodation. Eye muscles and extraocular movement intact. Sclera is anicteric. Neck; supple no lymphadenopathy, no thyromegaly or bruit Lungs: Normal respiratory rate/effort. Breath sounds bilateral reduced Heart: Normal rate. s1s2 normal. No rub or gallop. Extremities: trace edema. No varicose veins Neurological: Patient is awake alert follows commands Skin: Warm and dry. Normal turgor. No rash. Palpitation: Normal elasticity for age Abdomen: Abdomen is soft. Bowel sounds +. There is no abdominal tenderness, no guarding/rigidity no organomegaly Psych: limited insight. MSK: no joint tenderness or swelling. Digits and nails normal, no deformity : kidney or bladder not palpable. + farrell Labs/imaging reviewed. Past medical history, past surgical history, family history, social history, allergy reviewed and noted as below Family hx: no hx of CKD. Rest non-contributory UA 30 prot. renal imaging atrophy scarring Rt kidney Objective - Vital Signs/Intake and Output Vital Signs (last 24 hours): Temp Pulse Resp BP Pulse Ox 98.5 F 78 26 H 126/63 95 09/21/18 04:00 09/21/18 06:00 09/21/18 04:00 09/21/18 10:15 09/21/18 04:00 Intake and Output: 09/21/18 09/21/18 06:59 18:59 Intake Total 120 Output Total 500 Balance -380 - Medications Medications: Current Medications Acetaminophen (Tylenol 325mg Tab) 650 mg PO Q6 PRN PRN Reason: TEMP>=99.5F Last Admin: 09/14/18 17:04 Dose: 650 mg Acetaminophen (Tylenol 650 Mg Supp) 650 mg RC Q6H PRN PRN Reason: TEMP>=99.5F Albuterol/Ipratropium (Duoneb 3 Mg/0.5 Mg (3 Ml) Ud) 3 ml IH [id number] [facility] Last Admin: 09/21/18 08:09 Dose: 3 ml Allopurinol (Zyloprim) 100 mg PO DAILY [facility] Last Admin: 09/21/18 10:11 Dose: Not Given Arformoterol Tartrate (Brovana) 15 mcg IH [id number] [facility] Last Admin: 09/21/18 08:10 Dose: 15 mcg Budesonide (Pulmicort Respules) 0.5 mg IH [id number] [facility] Last Admin: 09/21/18 08:10 Dose: 0.5 mg Dextrose (Dextrose 50% Inj) 0 ml IV STAT PRN; Protocol PRN Reason: Hypoglycemia Protocol Ergocalciferol (Drisdol 50,000 Intl Units Cap) 1 cap PO Q7D [facility] Last Admin: 09/17/18 15:58 Dose: 1 cap Furosemide (Lasix) 40 mg IVP DAILY [facility] Last Admin: 09/21/18 10:15 Dose: 40 mg Dextrose (Dextrose 5% In Water 1000 Ml) 1,000 mls @ 0 mls/hr IV .Q0M PRN; Protocol PRN Reason: Hypoglycemia Protocol Insulin Human Lispro (Humalog High) 0 units SC ACHS [facility]; Protocol Last Admin: 09/21/18 07:30 Dose: Not Given Lactic Acid (Lac-Hydrin 12% Cream (140 G)) 0 ea TOP DAILY [facility] Last Admin: 09/21/18 10:17 Dose: Not Given Methylprednisolone (Solu-Medrol) 30 mg IVP Q12 [facility] Last Admin: 09/21/18 10:14 Dose: 30 mg Nicotine (Nicoderm Cq) 1 patch TD DAILY [facility] Last Admin: 09/21/18 10:18 Dose: 1 patch Nystatin (Nystop Topical Powder) 0 gm TOP Q6 [facility] Last Admin: 09/21/18 05:00 Dose: 1 pdr Nystatin (Mycostatin Cream) 0 ea TOP TID [facility] Last Admin: 03/24/19 10:18 Dose: Not Given Ondansetron HCl (Zofran Inj) 4 mg IVP Q4H PRN PRN Reason: Nausea/Vomiting Pantoprazole Sodium (Protonix Ec Tab) 40 mg PO 0600,1600 [facility] Last Admin: 09/21/18 05:01 Dose: 40 mg Polyethylene Glycol (Miralax) 17 gm PO BID [facility] Last Admin: 09/21/18 10:10 Dose: Not Given - Labs Labs: 09/20/18 05:00 09/20/18 05:00 PT 11.8 SECONDS (9.4-12.5) 09/21/18 05:00 INR 1.04 09/21/18 05:00 APTT 23.8 Seconds (26.9-38.3) L 09/21/18 05:00
--- NOTE | 2018-09-21 12:56 | PN ---
DATE: 09/21/2018 PULMONARY PROGRESS NOTE SUBJECTIVE: The patient was seen and examined at bedside in the Intensive Care Unit. She is awake and alert. She is on nasal cannula. She states she feels a little better. She is currently receiving inhalation treatment with Brovana and budesonide. She is on moderate dose of Solu-Medrol 30 mg every 12 hours. PHYSICAL EXAMINATION: VITAL SIGNS: Her temperature is 98, pulse 78, respirations 26, pulse oximetry is 95 on nasal cannula and blood pressure is 128/60. HEENT: Head normocephalic and atraumatic. NECK: Supple with no jugular vein distention. CARDIOVASCULAR: S1, S2, no S3, regular. PULMONARY: Diminished breath sounds at both lung bases with few coarse of rhonchi and no wheezing. GASTROINTESTINAL: Soft and nontender. No organomegaly. EXTREMITIES: 1+ pedal edema. No cyanosis. SKIN: No acute skin rash. NEUROLOGIC: No focal deficits. LABORATORY DATA: Additional data reviewed. Her chest x-ray reveals hyperventilation peribronchial thickening with chronic changes in both lung bases. Trace left pleural effusion marked cardiomegaly. ASSESSMENT: Exacerbation of chronic obstructive pulmonary disease, hypoxia, cardiomegaly, anemia, acute pulmonary embolism, left posterior thigh hematoma. PLAN: The patient is of anticoagulation due to left thigh hematoma. The IVC filter is in place. Pt still requires moderate to mild of oxygen by nasal cannula due to increased alveolar-arterial oxygen gradient. She needs to be monitored closely due to pulmonary emboli in-situ above the filter in pulmonary circulation and that on top of chronic obstructive pulmonary disease with the x-ray changes as described above. We will continue monitoring closely. Continue with moderate dose of steroids and current inhalation treatment. Anil Hernandez MD MTDD
--- NOTE | 2018-09-21 23:27 | CP.PCM.PN ---
Subjective - Date & Time of Evaluation Date of Evaluation: 09/19/18 Time of Evaluation: 19:00 - Subjective Subjective: Feeling better. Objective - Vital Signs/Intake and Output Vital Signs (last 24 hours): Temp Pulse Resp BP Pulse Ox 98 F 80 20 103/69 90 L 09/21/18 16:00 09/21/18 18:00 09/21/18 16:01 09/21/18 16:01 09/21/18 14:00 Intake and Output: 09/21/18 09/22/18 18:59 06:59 Intake Total 720 Output Total 950 Balance -230 - Medications Medications: Current Medications Acetaminophen (Tylenol 325mg Tab) 650 mg PO Q6 PRN PRN Reason: TEMP>=99.5F Last Admin: 09/14/18 17:04 Dose: 650 mg Acetaminophen (Tylenol 650 Mg Supp) 650 mg RC Q6H PRN PRN Reason: TEMP>=99.5F Albuterol/Ipratropium (Duoneb 3 Mg/0.5 Mg (3 Ml) Ud) 3 ml IH [id number] [facility] Last Admin: 09/21/18 20:18 Dose: 3 ml Allopurinol (Zyloprim) 100 mg PO DAILY [facility] Last Admin: 09/21/18 10:11 Dose: Not Given Arformoterol Tartrate (Brovana) 15 mcg IH [id number] [facility] Last Admin: 09/21/18 20:17 Dose: 15 mcg Budesonide (Pulmicort Respules) 0.5 mg IH [id number] [facility] Last Admin: 09/21/18 20:18 Dose: 0.5 mg Dextrose (Dextrose 50% Inj) 0 ml IV STAT PRN; Protocol PRN Reason: Hypoglycemia Protocol Ergocalciferol (Drisdol 50,000 Intl Units Cap) 1 cap PO Q7D [facility] Last Admin: 09/17/18 15:58 Dose: 1 cap Furosemide (Lasix) 40 mg IVP DAILY [facility] Last Admin: 09/21/18 10:15 Dose: 40 mg Dextrose (Dextrose 5% In Water 1000 Ml) 1,000 mls @ 0 mls/hr IV .Q0M PRN; Protocol PRN Reason: Hypoglycemia Protocol Insulin Human Lispro (Humalog High) 0 units SC ACHS [facility]; Protocol Last Admin: 09/21/18 22:00 Dose: Not Given Lactic Acid (Lac-Hydrin 12% Cream (140 G)) 0 ea TOP DAILY [facility] Last Admin: 09/21/18 10:17 Dose: Not Given Methylprednisolone (Solu-Medrol) 30 mg IVP Q12 [facility] Last Admin: 09/21/18 22:01 Dose: 30 mg Nicotine (Nicoderm Cq) 1 patch TD DAILY [facility] Last Admin: 09/21/18 10:18 Dose: 1 patch Nystatin (Nystop Topical Powder) 0 gm TOP Q6 [facility] Last Admin: 09/21/18 23:20 Dose: 1 pdr Nystatin (Mycostatin Cream) 0 ea TOP TID [facility] Last Admin: 09/21/18 17:02 Dose: Not Given Ondansetron HCl (Zofran Inj) 4 mg IVP Q4H PRN PRN Reason: Nausea/Vomiting Pantoprazole Sodium (Protonix Ec Tab) 40 mg PO 0600,1600 [facility] Last Admin: 09/21/18 17:04 Dose: 40 mg Polyethylene Glycol (Miralax) 17 gm PO BID [facility] Last Admin: 09/21/18 17:05 Dose: 17 gm - Labs Labs: 09/20/18 05:00 09/20/18 05:00 PT 11.8 SECONDS (9.4-12.5) 09/21/18 05:00 INR 1.04 09/21/18 05:00 APTT 23.8 Seconds (26.9-38.3) L 09/21/18 05:00 - Head Exam Head Exam: ATRAUMATIC - Eye Exam Eye Exam: Normal appearance - ENT Exam ENT Exam: Mucous Membranes Dry - Respiratory Exam Respiratory Exam: NORMAL BREATHING PATTERN - Cardiovascular Exam Cardiovascular Exam: +S1, +S2 - GI/Abdominal Exam GI & Abdominal Exam: Normal Bowel Sounds Assessment and Plan (1) Thigh hematoma Assessment & Plan: related to recent fall and anticoagulation anticoagulation stopped and IVC filter placed Status: Acute (2) Pulmonary embolism Assessment & Plan: likely embolized from lower extremities given recent fall and immobility anticoagulation contraindicated given acute thigh hematoma s/p retrievable IVC filter Status: Acute (3) Anemia Assessment & Plan: rsecondary to hemorrhage into thigh normal iron/b12/folate stores H/H improving Status: Acute
--- NOTE | 2018-09-21 23:28 | CP.PCM.PN ---
Subjective - Date & Time of Evaluation Date of Evaluation: 09/20/18 Time of Evaluation: 17:00 - Subjective Subjective: Breathing improved. Objective - Vital Signs/Intake and Output Vital Signs (last 24 hours): Temp Pulse Resp BP Pulse Ox 98 F 80 20 103/69 90 L 09/21/18 16:00 09/21/18 18:00 09/21/18 16:01 09/21/18 16:01 09/21/18 14:00 Intake and Output: 09/21/18 09/22/18 18:59 06:59 Intake Total 720 Output Total 950 Balance -230 - Medications Medications: Current Medications Acetaminophen (Tylenol 325mg Tab) 650 mg PO Q6 PRN PRN Reason: TEMP>=99.5F Last Admin: 09/14/18 17:04 Dose: 650 mg Acetaminophen (Tylenol 650 Mg Supp) 650 mg RC Q6H PRN PRN Reason: TEMP>=99.5F Albuterol/Ipratropium (Duoneb 3 Mg/0.5 Mg (3 Ml) Ud) 3 ml IH [id number] [facility] Last Admin: 09/21/18 20:18 Dose: 3 ml Allopurinol (Zyloprim) 100 mg PO DAILY [facility] Last Admin: 09/21/18 10:11 Dose: Not Given Arformoterol Tartrate (Brovana) 15 mcg IH [id number] [facility] Last Admin: 09/21/18 20:17 Dose: 15 mcg Budesonide (Pulmicort Respules) 0.5 mg IH [id number] [facility] Last Admin: 09/21/18 20:18 Dose: 0.5 mg Dextrose (Dextrose 50% Inj) 0 ml IV STAT PRN; Protocol PRN Reason: Hypoglycemia Protocol Ergocalciferol (Drisdol 50,000 Intl Units Cap) 1 cap PO Q7D [facility] Last Admin: 09/17/18 15:58 Dose: 1 cap Furosemide (Lasix) 40 mg IVP DAILY [facility] Last Admin: 09/21/18 10:15 Dose: 40 mg Dextrose (Dextrose 5% In Water 1000 Ml) 1,000 mls @ 0 mls/hr IV .Q0M PRN; Protocol PRN Reason: Hypoglycemia Protocol Insulin Human Lispro (Humalog High) 0 units SC ACHS [facility]; Protocol Last Admin: 09/21/18 22:00 Dose: Not Given Lactic Acid (Lac-Hydrin 12% Cream (140 G)) 0 ea TOP DAILY [facility] Last Admin: 09/21/18 10:17 Dose: Not Given Methylprednisolone (Solu-Medrol) 30 mg IVP Q12 [facility] Last Admin: 09/21/18 22:01 Dose: 30 mg Nicotine (Nicoderm Cq) 1 patch TD DAILY [facility] Last Admin: 09/21/18 10:18 Dose: 1 patch Nystatin (Nystop Topical Powder) 0 gm TOP Q6 [facility] Last Admin: 09/21/18 23:20 Dose: 1 pdr Nystatin (Mycostatin Cream) 0 ea TOP TID [facility] Last Admin: 09/21/18 17:02 Dose: Not Given Ondansetron HCl (Zofran Inj) 4 mg IVP Q4H PRN PRN Reason: Nausea/Vomiting Pantoprazole Sodium (Protonix Ec Tab) 40 mg PO 0600,1600 [facility] Last Admin: 09/21/18 17:04 Dose: 40 mg Polyethylene Glycol (Miralax) 17 gm PO BID [facility] Last Admin: 09/21/18 17:05 Dose: 17 gm - Labs Labs: 09/20/18 05:00 09/20/18 05:00 PT 11.8 SECONDS (9.4-12.5) 09/21/18 05:00 INR 1.04 09/21/18 05:00 APTT 23.8 Seconds (26.9-38.3) L 09/21/18 05:00 - Head Exam Head Exam: ATRAUMATIC - Eye Exam Eye Exam: Normal appearance - ENT Exam ENT Exam: Mucous Membranes Dry - Respiratory Exam Respiratory Exam: NORMAL BREATHING PATTERN - Cardiovascular Exam Cardiovascular Exam: +S1, +S2 - GI/Abdominal Exam GI & Abdominal Exam: Normal Bowel Sounds Assessment and Plan (1) Thigh hematoma Assessment & Plan: related to recent fall and anticoagulation anticoagulation stopped and IVC filter placed Status: Acute (2) Pulmonary embolism Assessment & Plan: likely embolized from lower extremities given recent fall and immobility anticoagulation contraindicated given acute thigh hematoma s/p retrievable IVC filter Status: Acute (3) Anemia Assessment & Plan: secondary to hemorrhage into thigh normal iron/b12/folate stores H/H improving Status: Acute
[2018-09-22] MEDS: Albuterol-Ipratrop 3 mg / 0.5 (3 ml) UD IH SCH ×4 (01:39→19:57)
[2018-09-22] MEDS: Pantoprazole 40 mg EC Tab PO SCH ×2 (05:37→18:01)
[2018-09-22] MEDS: Nystatin 100,000 Units/gm Topical Pow(15 gm) TOP SCH (05:38)
[2018-09-22 06:43] LABS: INR 1.06
--- NOTE | 2018-09-22 07:33 | PN ---
DATE: 09/22/2018 SUBJECTIVE: The patient appears comfortable this morning. She is not short of breath at rest. PHYSICAL EXAMINATION: VITAL SIGNS: Temperature 98, pulse 82, respiratory rate 20, blood pressure 123/68. Oxygen saturation on nasal cannula is 92%. HEENT: Normocephalic, atraumatic. NECK: No JVD. CARDIOVASCULAR: Systolic ejection murmur at the lower left sternal border. Questionable S3 gallop. LUNGS: Decreased breath sounds at the bases. Very minimal/much less rhonchi. No wheezing. EXTREMITIES: Positive for edema. No cyanosis. No clubbing. Calves are nontender to palpation. GASTROINTESTINAL: Abdomen is soft, nontender and nondistended. Bowel sounds are positive. SKIN: No acute rash. NEUROLOGIC: Exam limited at the present time. PERTINENT LABORATORY DATA: Chest x-ray was done this morning and reviewed. The chest x-ray is not significantly changed from the previous film. IMPRESSION: 1. Advanced chronic obstructive pulmonary disease. 2. Moderate bronchospasm - resolving. 3. Status post respiratory failure. 4. Right lower lobe pulmonary embolism. 5. Cardiomyopathy. 6. Anemia. 7. Left thigh hematoma. PLAN: The patient appears comfortable this morning. She is not short of breath at rest. She does state to feeling much better overall. I did discuss the case with the night nurse at length. The night nurse stated the patient had a good night. I did review the chest x-ray as above. The chest x-ray is not significantly changed from the previous film. Official results are pending. The patient remains off antibiotic therapy - as per Infectious Disease. There are no temperatures noted. There is no leukocytosis. On physical exam, there is definitely less bronchospasm noted. In addition, the alveolar-arterial gradient is also much less. The patient no longer requires high-flow oxygen delivery. I will continue with the current nebulizer treatments and decrease the intravenous steroids this morning. Inputs by Renal and Cardiology are also noted. Clinical status of the patient is significantly improved - compared to last week. However, again, given the above, the future status/prognosis for this patient - with advanced lung disease - does remain very guarded. I will discuss the above with the entire ICU team in the next few moments. I will also discuss the above with the attending physician later this morning. Andrae Rajput MD [facility] # [id number] SHUN
[2018-09-22] MEDS: Arformoterol 15 mcg/2 ml Inh Sol IH SCH ×2 (07:39→19:57)
[2018-09-22] MEDS: Budesonide 0.5 mg/2 ml Inhal Susp UD IH SCH ×2 (07:39→19:57)
--- NOTE | 2018-09-22 08:10 | CP.PCM.PN ---
Subjective - Date & Time of Evaluation Date of Evaluation: 09/22/18 Time of Evaluation: 07:30 - Subjective Subjective: (covering for Dr. Law) Patient is seen this morning in intensive care unit bed 4. She is feeling better overall she says. Objective - Vital Signs/Intake and Output Vital Signs (last 24 hours): Temp Pulse Resp BP Pulse Ox 98 F 77 20 131/76 92 L 09/21/18 20:00 09/22/18 06:00 09/22/18 06:00 09/22/18 06:00 09/21/18 20:00 - Medications Medications: Current Medications Acetaminophen (Tylenol 325mg Tab) 650 mg PO Q6 PRN PRN Reason: TEMP>=99.5F Last Admin: 09/14/18 17:04 Dose: 650 mg Acetaminophen (Tylenol 650 Mg Supp) 650 mg RC Q6H PRN PRN Reason: TEMP>=99.5F Albuterol/Ipratropium (Duoneb 3 Mg/0.5 Mg (3 Ml) Ud) 3 ml IH [id number] [facility] Last Admin: 09/22/18 07:39 Dose: 3 ml Arformoterol Tartrate (Brovana) 15 mcg IH [id number] [facility] Last Admin: 09/22/18 07:39 Dose: 15 mcg Budesonide (Pulmicort Respules) 0.5 mg IH [id number] [facility] Last Admin: 09/22/18 07:39 Dose: 0.5 mg Dextrose (Dextrose 50% Inj) 0 ml IV STAT PRN; Protocol PRN Reason: Hypoglycemia Protocol Ergocalciferol (Drisdol 50,000 Intl Units Cap) 1 cap PO Q7D [facility] Last Admin: 09/17/18 15:58 Dose: 1 cap Furosemide (Lasix) 40 mg IVP DAILY [facility] Last Admin: 09/21/18 10:15 Dose: 40 mg Dextrose (Dextrose 5% In Water 1000 Ml) 1,000 mls @ 0 mls/hr IV .Q0M PRN; Protocol PRN Reason: Hypoglycemia Protocol Lactic Acid (Lac-Hydrin 12% Cream (140 G)) 0 ea TOP DAILY [facility] Last Admin: 09/21/18 10:17 Dose: Not Given Methylprednisolone (Solu-Medrol) 20 mg IVP Q12 [facility] Nicotine (Nicoderm Cq) 1 patch TD DAILY [facility] Last Admin: 09/21/18 10:18 Dose: 1 patch Nystatin (Mycostatin Cream) 0 ea TOP TID [facility] Last Admin: 09/21/18 17:02 Dose: Not Given Ondansetron HCl (Zofran Inj) 4 mg IVP Q4H PRN PRN Reason: Nausea/Vomiting Pantoprazole Sodium (Protonix Ec Tab) 40 mg PO 0600,1600 [facility] Last Admin: 09/22/18 05:37 Dose: 40 mg Polyethylene Glycol (Miralax) 17 gm PO BID [facility] Last Admin: 09/21/18 17:05 Dose: 17 gm - Labs Labs: 09/20/18 05:00 09/20/18 05:00 PT 12.0 SECONDS (9.4-12.5) 09/22/18 06:00 INR 1.06 09/22/18 06:00 APTT 23.8 Seconds (26.9-38.3) L 09/21/18 05:00 - Constitutional Appears: No Acute Distress - Head Exam Head Exam: ATRAUMATIC, NORMOCEPHALIC - Respiratory Exam Respiratory Exam: Decreased Breath Sounds, NORMAL BREATHING PATTERN - Cardiovascular Exam Cardiovascular Exam: REGULAR RHYTHM, +S1, +S2 - GI/Abdominal Exam GI & Abdominal Exam: Soft, Normal Bowel Sounds. absent: Tenderness - Extremities Exam Extremities Exam: Pedal Edema Additional comments: Left leg CAROL bandage - Neurological Exam Neurological Exam: Alert, Awake, CN II-XII Intact, Oriented x3 Assessment and Plan - Assessment and Plan (Free Text) Assessment: Acute pulmonary embolism Left thigh hematoma Advanced COPD Plan: Patient is saturating well on nasal cannula. Steroid taper as per Dr.Karpman yuridia. Patient is off anticoagulation for pulmonary embolism due to left thigh hematoma. Hemoglobin remains stable around 10. continue PT. Arrangement being made for patient to go to rehab.
--- NOTE | 2018-09-22 09:31 | RAD ---
Date of service: 09/22/2018 HISTORY: f/u COMPARISON: 09/22/2018 TECHNIQUE: 1 view obtained. FINDINGS: LUNGS: No change in bibasilar infiltrates and effusions. PLEURA: As above CARDIOVASCULAR: Right-sided aortic arch. Aortic calcification. Moderate cardiomegaly. No pulmonary vascular congestion. OSSEOUS STRUCTURES: No significant abnormalities. VISUALIZED UPPER ABDOMEN: Normal. OTHER FINDINGS: None. IMPRESSION: No change in bibasilar infiltrates and effusions.
[2018-09-22] MEDS: Ammonium Lactate 12% Cream (140 g) TOP SCH (09:42)
[2018-09-22] MEDS: POLYETHYLENE GLYCOL 3350 17 GM/Dose PACKET PO SCH ×2 (09:42→18:01)
[2018-09-22] MEDS: VITS A AND D/WHITE PET/LANOLIN 113.4 APPLIC/113.4 G TUBE TP SCH (09:43)
[2018-09-22] MEDS: Nystatin 100,000 Units/gm Cream(15 gm) TOP SCH ×3 (09:44→18:03)
[2018-09-22] MEDS: Insulin Lispro (HUMAlog) HIGH Coverage SC SCH (09:45)
[2018-09-22] MEDS ORDERED: MethylPREDNISolone 40 mg Vial IVP SCH (10:00)
--- NOTE | 2018-09-22 12:31 | PN ---
DATE: 09/22/2018 SUBJECTIVE: The patient is seen earlier today, in no acute distress, in ICU. No fevers, no chills. No nausea, no vomiting. PHYSICAL EXAMINATION: VITAL SIGNS: Temperature is 98, blood pressure is 130/70, respiratory 20, and heart rate of 77. HEENT: Unremarkable. NECK: Supple. LUNGS: Have decreased breath sounds. HEART: Normal S1 and S2. ABDOMEN: Soft and nontender. LABORATORY DATA: Reveals white count is 10,000. Chemistries are noted. Microbiology is reviewed. All cultures are negative. MEDICATIONS: Review of orders reveals the patient is off of antibiotics. The patient is on prednisone. ASSESSMENT AND PLAN: This is a 73-year-old female who was seen in the ICU 128, bed 4, earlier today with history of chronic obstructive lung disease, tobacco use, is admitted after being found unresponsive, admitted with severe sepsis, acute respiratory failure, intubated on a ventilator and found to have pulmonary emboli and community-acquired pneumonia as the source of the severe sepsis, now extubated, complete the antibiotics, afebrile, normal white count, however, the patient is at risk for developing nosocomial infections. Agapito Rojo MD
--- NOTE | 2018-09-22 12:41 | CP.PCM.PCO ---
Physician Communication Note - Physician Communication Note Physician Communication Note: pt transferrred from icu to 566.1, p.t recs tcu at this time. will follow
--- NOTE | 2018-09-22 13:41 | CP.PCM.PN ---
Subjective - Date & Time of Evaluation Date of Evaluation: 09/22/18 Time of Evaluation: 13:41 - Subjective Subjective: Nephrology Consultation Note: Assessment: stable likely CKD 2 with UA 30 prot. renal imaging atrophy scarring Rt kidney COPD/sys CHF exacerbation with PNA, acute PE, DM and sepsis morbid obesity acute on chronic hypercapnic respi failure with renal compensation active smoker hyperkalemia vit d def cholelithiasis Plan No acute need for renal replacement therapy at this time. Hypertension control with meds as ordered. Maintain hemodynamics stable. Avoid hypotension. Patient not on ACEI or ARB at present, held for low bp. will resume if allowed by BP Monitor Input/Output, daily weights and renal function with basic metabolic panel lasix resumed . d/c diamox added weekly vit D cardiology, pulmonary following Check urine spot protein/creatinine, albumin/creatinine ratio Dose meds/antibiotics for GFR >50 Glycemic control. once stable and acute process resolved, pt will need weight loss, smoking cessation, lifestyle modifications Further work up/management as per primary team Thanks for allowing me to participate in care of your patient. Will follow patient with you. Please call if any Qs. had d/w team Dr David Harrison Office: [phone] Chief Complaint; unable Reason for consult: Acute Kidney Injury HPI: Pt is a 73 F with hx of heavy smoking, no medical follow ups presented with complaints of SOB and respi distress intubated and admitted to ICU. foudn to have CHF exacerbation with PNA, PE, DM and sepsis renal consult for abnormal imaging and renal fxn eval Denies OTC/herbal meds or NSAIDs Noted recent iodinated contrast exposure as CTA. No obvious episodes of low BP. ROS: pt extubated on o2 via NC. feels better. no urine complaints. breathing okay Physical Examination: General Appearance: better appearing on O2 via NC. no acute distress, obese Vitals reviewed and noted as below Head; Atraumatic, normocephalic ENT: normal oral mucosa EYES: Pupils are equal, round and reactive to light accommodation. Eye muscles and extraocular movement intact. Sclera is anicteric. Neck; supple no lymphadenopathy, no thyromegaly or bruit Lungs: Normal respiratory rate/effort. Breath sounds bilateral reduced at bases Heart: Normal rate. s1s2 normal. No rub or gallop. Extremities: tammi edema. No varicose veins Neurological: Patient is awake alert follows commands Skin: Warm and dry. Normal turgor. No rash. Palpitation: Normal elasticity for age Abdomen: Abdomen is soft. Bowel sounds +. There is no abdominal tenderness, no guarding/rigidity no organomegaly Psych: limited insight. MSK: no joint tenderness or swelling. Digits and nails normal, no deformity : kidney or bladder not palpable. smith farrell Labs/imaging reviewed. Past medical history, past surgical history, family history, social history, allergy reviewed and noted as below Family hx: no hx of CKD. Rest non-contributory UA 30 prot. renal imaging atrophy scarring Rt kidney Objective - Vital Signs/Intake and Output Vital Signs (last 24 hours): Temp Pulse Resp BP Pulse Ox 97.3 F L 80 18 128/72 91 L 09/22/18 12:30 09/22/18 12:30 09/22/18 12:30 09/22/18 12:30 09/22/18 12:30 Intake and Output: 09/22/18 09/22/18 06:59 18:59 Intake Total 240 Output Total 200 Balance 40 - Medications Medications: Current Medications Acetaminophen (Tylenol 325mg Tab) 650 mg PO Q6 PRN PRN Reason: TEMP>=99.5F Last Admin: 09/14/18 17:04 Dose: 650 mg Acetaminophen (Tylenol 650 Mg Supp) 650 mg RC Q6H PRN PRN Reason: TEMP>=99.5F Albuterol/Ipratropium (Duoneb 3 Mg/0.5 Mg (3 Ml) Ud) 3 ml [facility] [id number] [facility] Last Admin: 09/22/18 07:39 Dose: 3 ml Arformoterol Tartrate (Brovana) 15 mcg IH [id number] [facility] Last Admin: 09/22/18 07:39 Dose: 15 mcg Budesonide (Pulmicort Respules) 0.5 mg IH [id number] [facility] Last Admin: 09/22/18 07:39 Dose: 0.5 mg Dextrose (Dextrose 50% Inj) 0 ml IV STAT PRN; Protocol PRN Reason: Hypoglycemia Protocol Ergocalciferol (Drisdol 50,000 Intl Units Cap) 1 cap PO Q7D [facility] Last Admin: 09/17/18 15:58 Dose: 1 cap Furosemide (Lasix) 20 mg PO DAILY [facility] Dextrose (Dextrose 5% In Water 1000 Ml) 1,000 mls @ 0 mls/hr IV .Q0M PRN; Protocol PRN Reason: Hypoglycemia Protocol Lactic Acid (Lac-Hydrin 12% Cream (140 G)) 0 ea TOP DAILY [facility] Last Admin: 09/22/18 09:42 Dose: 1 applic Losartan Potassium (Cozaar) 25 mg PO DAILY [facility] Nicotine (Nicoderm Cq) 1 patch TD DAILY [facility] Last Admin: 09/22/18 09:41 Dose: 1 patch Nystatin (Mycostatin Cream) 0 ea TOP TID [facility] Last Admin: 09/22/18 09:44 Dose: 1 applic Ondansetron HCl (Zofran Inj) 4 mg IVP Q4H PRN PRN Reason: Nausea/Vomiting Pantoprazole Sodium (Protonix Ec Tab) 40 mg PO 0600,1600 [facility] Last Admin: 09/22/18 05:37 Dose: 40 mg Polyethylene Glycol (Miralax) 17 gm PO BID [facility] Last Admin: 09/22/18 09:42 Dose: Not Given Prednisone (Prednisone Tab) 30 mg PO DAILY [facility] Last Admin: 09/22/18 09:50 Dose: 30 mg - Labs Labs: 09/20/18 05:00 09/20/18 05:00 PT 12.0 SECONDS (9.4-12.5) 09/22/18 06:00 INR 1.06 09/22/18 06:00 APTT 23.8 Seconds (26.9-38.3) L 09/21/18 05:00
--- NOTE | 2018-09-22 17:51 | PN ---
DATE: 09/22/2018 CARDIOLOGY FOLLOWUP SUBJECTIVE: The patient is in a chair, her breathing has markedly improved. PHYSICAL EXAMINATION: VITAL SIGNS: Blood pressure 130/75, heart rate in the 70s. NECK: Negative JVD. LUNGS: Without rales. HEART: Reveals S1 and S2. EXTREMITIES: Without edema. LABORATORY DATA: Hemoglobin is 10. White count is normal. BUN and creatinine of 43 and 0.7. The glucose is 129. IMPRESSION: 1. Severe chronic obstructive pulmonary disease. 2. Cardiomyopathy. 3. Resolution of dyspnea. 4. Status post right lower lobe pulmonary embolism. 5. Status post hematoma of the left thigh. 6. Anemia. Given these findings, the patient is doing markedly better. We will discuss with Pulmonary about putting her on anticoagulation. We will change her Lasix to p.o. Nick Rowley MD
--- NOTE | 2018-09-22 22:43 | CP.PCM.PN ---
Subjective - Date & Time of Evaluation Date of Evaluation: 09/22/18 Time of Evaluation: 19:00 - Subjective Subjective: Feeling better. Objective - Vital Signs/Intake and Output Vital Signs (last 24 hours): Temp Pulse Resp BP Pulse Ox 98 F 92 H 20 106/65 97 09/22/18 14:00 09/22/18 14:00 09/22/18 14:00 09/22/18 14:00 09/22/18 14:00 Intake and Output: 09/22/18 09/23/18 18:59 06:59 Intake Total 540 Output Total 700 Balance -160 - Medications Medications: Current Medications Acetaminophen (Tylenol 325mg Tab) 650 mg PO Q6 PRN PRN Reason: TEMP>=99.5F Last Admin: 09/14/18 17:04 Dose: 650 mg Acetaminophen (Tylenol 650 Mg Supp) 650 mg RC Q6H PRN PRN Reason: TEMP>=99.5F Albuterol/Ipratropium (Duoneb 3 Mg/0.5 Mg (3 Ml) Ud) 3 ml IH [id number] [facility] Last Admin: 09/22/18 19:57 Dose: 3 ml Arformoterol Tartrate (Brovana) 15 mcg IH [id number] [facility] Last Admin: 09/22/18 19:57 Dose: 15 mcg Budesonide (Pulmicort Respules) 0.5 mg IH [id number] [facility] Last Admin: 09/22/18 19:57 Dose: 0.5 mg Dextrose (Dextrose 50% Inj) 0 ml IV STAT PRN; Protocol PRN Reason: Hypoglycemia Protocol Ergocalciferol (Drisdol 50,000 Intl Units Cap) 1 cap PO Q7D [facility] Last Admin: 09/17/18 15:58 Dose: 1 cap Furosemide (Lasix) 20 mg PO DAILY [facility] Dextrose (Dextrose 5% In Water 1000 Ml) 1,000 mls @ 0 mls/hr IV .Q0M PRN; Protocol PRN Reason: Hypoglycemia Protocol Lactic Acid (Lac-Hydrin 12% Cream (140 G)) 0 ea TOP DAILY [facility] Last Admin: 09/22/18 09:42 Dose: 1 applic Losartan Potassium (Cozaar) 25 mg PO DAILY [facility] Nicotine (Nicoderm Cq) 1 patch TD DAILY [facility] Last Admin: 09/22/18 09:41 Dose: 1 patch Nystatin (Mycostatin Cream) 0 ea TOP TID [facility] Last Admin: 09/22/18 18:03 Dose: Not Given Ondansetron HCl (Zofran Inj) 4 mg IVP Q4H PRN PRN Reason: Nausea/Vomiting Pantoprazole Sodium (Protonix Ec Tab) 40 mg PO 0600,1600 [facility] Last Admin: 09/22/18 18:01 Dose: 40 mg Polyethylene Glycol (Miralax) 17 gm PO BID [facility] Last Admin: 09/22/18 18:01 Dose: 17 gm Prednisone (Prednisone Tab) 30 mg PO DAILY [facility] Last Admin: 09/22/18 09:50 Dose: 30 mg - Labs Labs: 09/20/18 05:00 09/20/18 05:00 PT 12.0 SECONDS (9.4-12.5) 09/22/18 06:00 INR 1.06 09/22/18 06:00 APTT 23.8 Seconds (26.9-38.3) L 09/21/18 05:00 - Head Exam Head Exam: ATRAUMATIC - Eye Exam Eye Exam: Normal appearance - ENT Exam ENT Exam: Mucous Membranes Dry - Respiratory Exam Respiratory Exam: NORMAL BREATHING PATTERN - Cardiovascular Exam Cardiovascular Exam: +S1, +S2 - GI/Abdominal Exam GI & Abdominal Exam: Normal Bowel Sounds Assessment and Plan (1) Thigh hematoma Assessment & Plan: related to recent fall and anticoagulation anticoagulation stopped and IVC filter placed Status: Acute (2) Pulmonary embolism Assessment & Plan: likely embolized from lower extremities given recent fall and immobility anticoagulation contraindicated given acute thigh hematoma s/p retrievable IVC filter Status: Acute (3) Anemia Assessment & Plan: secondary to hemorrhage into thigh normal iron/b12/folate stores H/H improving Status: Acute
[2018-09-23] MEDS: Albuterol-Ipratrop 3 mg / 0.5 (3 ml) UD IH SCH ×3 (02:02→13:11)
[2018-09-23] MEDS: Pantoprazole 40 mg EC Tab PO SCH (05:21)
[2018-09-23] MEDS: Budesonide 0.5 mg/2 ml Inhal Susp UD IH SCH (07:18)
[2018-09-23] MEDS: Arformoterol 15 mcg/2 ml Inh Sol IH SCH (07:18)
--- NOTE | 2018-09-23 08:08 | CP.PCM.PN ---
Subjective - Date & Time of Evaluation Date of Evaluation: 09/23/18 Time of Evaluation: 07:45 - Subjective Subjective: (covering for Dr. Law) Patient is seen this morning. She is lying in bed in room 566 bed 1. She is feeling better overall. Objective - Vital Signs/Intake and Output Vital Signs (last 24 hours): Temp Pulse Resp BP Pulse Ox 98.2 F 77 18 113/67 98 09/23/18 06:00 09/23/18 06:00 09/23/18 06:00 09/23/18 06:00 09/23/18 06:00 - Medications Medications: Current Medications Acetaminophen (Tylenol 325mg Tab) 650 mg PO Q6 PRN PRN Reason: TEMP>=99.5F Last Admin: 09/14/18 17:04 Dose: 650 mg Acetaminophen (Tylenol 650 Mg Supp) 650 mg RC Q6H PRN PRN Reason: TEMP>=99.5F Albuterol/Ipratropium (Duoneb 3 Mg/0.5 Mg (3 Ml) Ud) 3 ml IH [id number] [facility] Last Admin: 09/23/18 07:18 Dose: 3 ml Arformoterol Tartrate (Brovana) 15 mcg IH [id number] [facility] Last Admin: 09/23/18 07:18 Dose: 15 mcg Budesonide (Pulmicort Respules) 0.5 mg IH [id number] [facility] Last Admin: 09/23/18 07:18 Dose: 0.5 mg Dextrose (Dextrose 50% Inj) 0 ml IV STAT PRN; Protocol PRN Reason: Hypoglycemia Protocol Ergocalciferol (Drisdol 50,000 Intl Units Cap) 1 cap PO Q7D [facility] Last Admin: 09/17/18 15:58 Dose: 1 cap Furosemide (Lasix) 20 mg PO DAILY [facility] Dextrose (Dextrose 5% In Water 1000 Ml) 1,000 mls @ 0 mls/hr IV .Q0M PRN; Protocol PRN Reason: Hypoglycemia Protocol Lactic Acid (Lac-Hydrin 12% Cream (140 G)) 0 ea TOP DAILY [facility] Last Admin: 09/22/18 09:42 Dose: 1 applic Losartan Potassium (Cozaar) 25 mg PO DAILY [facility] Nicotine (Nicoderm Cq) 1 patch TD DAILY [facility] Last Admin: 09/22/18 09:41 Dose: 1 patch Nystatin (Mycostatin Cream) 0 ea TOP TID [facility] Last Admin: 09/22/18 18:03 Dose: Not Given Ondansetron HCl (Zofran Inj) 4 mg IVP Q4H PRN PRN Reason: Nausea/Vomiting Pantoprazole Sodium (Protonix Ec Tab) 40 mg PO 0600,1600 [facility] Last Admin: 09/23/18 05:21 Dose: 40 mg Polyethylene Glycol (Miralax) 17 gm PO BID [facility] Last Admin: 09/22/18 18:01 Dose: 17 gm Prednisone (Prednisone Tab) 30 mg PO DAILY [facility] Last Admin: 09/22/18 09:50 Dose: 30 mg - Labs Labs: 09/20/18 05:00 09/20/18 05:00 PT 12.0 SECONDS (9.4-12.5) 09/22/18 06:00 INR 1.06 09/22/18 06:00 APTT 23.8 Seconds (26.9-38.3) L 09/21/18 05:00 - Constitutional Appears: No Acute Distress - Head Exam Head Exam: ATRAUMATIC, NORMOCEPHALIC - Respiratory Exam Respiratory Exam: Decreased Breath Sounds, NORMAL BREATHING PATTERN - Cardiovascular Exam Cardiovascular Exam: REGULAR RHYTHM, +S1, +S2 - GI/Abdominal Exam GI & Abdominal Exam: Soft, Normal Bowel Sounds. absent: Tenderness - Neurological Exam Neurological Exam: Alert, Awake, CN II-XII Intact, Oriented x3 Assessment and Plan - Assessment and Plan (Free Text) Assessment: Acute pulmonary embolism s/p VDRF Left thigh hematoma Cardiomyopathy Plan: Patient is saturating well on nasal cannula. continue respiratory treatments and prednisone as per pulmonary. Patient is off anticoagulation due to large left thigh hematoma. Patient has had IVC filter placed. According to Dr. Livingston, extruding press adjuster, anticoagulation is contraindicated due to hematoma. continue Losartan, and Lasix as per cardiology. continue physical therapy. older adult social work specialist working on a place for rehab for the patient.
--- NOTE | 2018-09-23 10:09 | PN ---
DATE: 09/23/2018 PULMONARY NOTE SUBJECTIVE: The patient appears comfortable this morning. She is not short of breath at rest. OBJECTIVE: VITALS (Last noted in the computer): Temperature is 97.7, pulse 75, respirations 20, blood pressure 133/74. Oxygen saturation on nasal cannula is 97%. HEENT: Normocephalic, atraumatic. No JVD. CARDIOVASCULAR: Systolic ejection murmur at the lower left sternal border. Questionable S3 gallop. LUNGS: Decreased breath sounds at the bases. No rhonchi or wheezing this morning. EXTREMITIES: Positive for edema. No cyanosis or clubbing. Calves are nontender to palpation. GASTROINTESTINAL: Abdomen is soft, nontender, and nondistended. Bowel sounds are positive. SKIN: No acute rash. NEUROLOGIC: Exam limited at the present time. IMPRESSION: 1. Advanced chronic obstructive pulmonary disease. 2. Moderate bronchospasm - resolving. 3. Status post respiratory failure. 4. Right lower lobe pulmonary embolism. 5. Cardiomyopathy. 6. Anemia. 7. Left thigh hematoma. PLAN: The patient appears quite comfortable this morning. She is not short of breath at rest. She does state to feeling much better overall. I did discuss the case with the night nurse at length. The night nurse stated that the patient had a very good night. On physical exam, the patient's bronchospasm continues to resolve. In addition, the alveolar-arterial gradient is also much less. I will continue the current nebulizer treatments and oral steroids (changed yesterday) for now. The patient remains off antibiotic therapy - as per Infectious Disease. There are no temperatures noted. There is no leukocytosis. Inputs by Cardiology and Renal are also noted. Clinical status of the patient is significantly improved - compared to last week. However, it does appear that this patient has very advanced lung disease. Thus, the future status/prognosis for this patient remains very guarded. The patient is for discharge to a subacute rehab facility in the near future. I will discuss the above with the attending physician. Andrae Rajput MD [facility]
[2018-09-23] MEDS: POLYETHYLENE GLYCOL 3350 17 GM/Dose PACKET PO SCH ×2 (10:12→10:40)
[2018-09-23] MEDS: Ammonium Lactate 12% Cream (140 g) TOP SCH (10:33)
[2018-09-23] MEDS: VITS A AND D/WHITE PET/LANOLIN 113.4 APPLIC/113.4 G TUBE TP SCH (10:33)
[2018-09-23] MEDS: Nystatin 100,000 Units/gm Cream(15 gm) TOP SCH ×3 (10:34→14:32)
--- NOTE | 2018-09-23 12:08 | CP.PCM.PN ---
Subjective - Date & Time of Evaluation Date of Evaluation: 09/23/18 Time of Evaluation: 12:07 - Subjective Subjective: Nephrology Consultation Note: Assessment: stable likely CKD 2 with UA 30 prot. renal imaging atrophy scarring Rt kidney COPD/sys CHF exacerbation with PNA, acute PE, DM and sepsis morbid obesity acute on chronic hypercapnic respi failure with renal compensation active smoker hyperkalemia vit d def cholelithiasis Plan No acute need for renal replacement therapy at this time. Hypertension control with meds as ordered. Maintain hemodynamics stable. Avoid hypotension. Patient on losartan 25 mg/d as allowed by BP Monitor Input/Output, daily weights and renal function with basic metabolic panel lasix continue added weekly vit D cardiology, pulmonary following Check urine spot protein/creatinine, albumin/creatinine ratio Dose meds/antibiotics for GFR >50 Glycemic control. once stable and acute process resolved, pt will need weight loss, smoking cessation, lifestyle modifications Further work up/management as per primary team Thanks for allowing me to participate in care of your patient. Will follow patient with you. Please call if any Qs. had d/w team Dr David Harrison Office: [phone] Chief Complaint; unable Reason for consult: Acute Kidney Injury HPI: Pt is a 73 F with hx of heavy smoking, no medical follow ups presented with complaints of SOB and respi distress intubated and admitted to ICU. foudn to have CHF exacerbation with PNA, PE, DM and sepsis renal consult for abnormal imaging and renal fxn eval Denies OTC/herbal meds or NSAIDs Noted recent iodinated contrast exposure as CTA. No obvious episodes of low BP. ROS: pt extubated on o2 via NC. feels better. no urine complaints. breathing okay Physical Examination: General Appearance: better appearing on O2 via NC. no acute distress, obese Vitals reviewed and noted as below Head; Atraumatic, normocephalic ENT: normal oral mucosa EYES: Pupils are equal, round and reactive to light accommodation. Eye muscles and extraocular movement intact. Sclera is anicteric. Neck; supple no lymphadenopathy, no thyromegaly or bruit Lungs: Normal respiratory rate/effort. Breath sounds bilateral improved Heart: Normal rate. s1s2 normal. No rub or gallop. Extremities: no edema. No varicose veins Neurological: Patient is awake alert follows commands Skin: Warm and dry. Normal turgor. No rash. Palpitation: Normal elasticity for age Abdomen: Abdomen is soft. Bowel sounds +. There is no abdominal tenderness, no guarding/rigidity no organomegaly Psych: limited insight. MSK: no joint tenderness or swelling. Digits and nails normal, no deformity : kidney or bladder not palpable. smith farrell Labs/imaging reviewed. Past medical history, past surgical history, family history, social history, allergy reviewed and noted as below Family hx: no hx of CKD. Rest non-contributory UA 30 prot. renal imaging atrophy scarring Rt kidney Objective - Vital Signs/Intake and Output Vital Signs (last 24 hours): Temp Pulse Resp BP Pulse Ox 98.2 F 77 18 113/67 98 09/23/18 06:00 09/23/18 06:00 09/23/18 06:00 09/23/18 10:10 09/23/18 06:00 Intake and Output: 09/23/18 09/23/18 06:59 18:59 Intake Total 240 Balance 240 - Medications Medications: Current Medications Acetaminophen (Tylenol 325mg Tab) 650 mg PO Q6 PRN PRN Reason: TEMP>=99.5F Last Admin: 09/14/18 17:04 Dose: 650 mg Albuterol/Ipratropium (Duoneb 3 Mg/0.5 Mg (3 Ml) Ud) 3 ml IH [id number] [facility] Last Admin: 09/23/18 07:18 Dose: 3 ml Arformoterol Tartrate (Brovana) 15 mcg IH [id number] [facility] Last Admin: 09/23/18 07:18 Dose: 15 mcg Budesonide (Pulmicort Respules) 0.5 mg IH [id number] [facility] Last Admin: 09/23/18 07:18 Dose: 0.5 mg Dextrose (Dextrose 50% Inj) 0 ml IV STAT PRN; Protocol PRN Reason: Hypoglycemia Protocol Ergocalciferol (Drisdol 50,000 Intl Units Cap) 1 cap PO Q7D [facility] Last Admin: 09/17/18 15:58 Dose: 1 cap Furosemide (Lasix) 20 mg PO DAILY [facility] Last Admin: 09/23/18 10:10 Dose: 20 mg Dextrose (Dextrose 5% In Water 1000 Ml) 1,000 mls @ 0 mls/hr IV .Q0M PRN; Protocol PRN Reason: Hypoglycemia Protocol Lactic Acid (Lac-Hydrin 12% Cream (140 G)) 0 ea TOP DAILY [facility] Last Admin: 09/23/18 10:33 Dose: 1 applic Losartan Potassium (Cozaar) 25 mg PO DAILY [facility] Last Admin: 09/23/18 10:12 Dose: 25 mg Nicotine (Nicoderm Cq) 1 patch TD DAILY [facility] Last Admin: 09/23/18 10:11 Dose: 1 patch Nystatin (Mycostatin Cream) 0 ea TOP TID [facility] Last Admin: 09/23/18 10:38 Dose: Not Given Ondansetron HCl (Zofran Inj) 4 mg IVP Q4H PRN PRN Reason: Nausea/Vomiting Pantoprazole Sodium (Protonix Ec Tab) 40 mg PO 0600,1600 [facility] Last Admin: 09/23/18 05:21 Dose: 40 mg Polyethylene Glycol (Miralax) 17 gm PO BID [facility] Last Admin: 09/23/18 10:40 Dose: Not Given Prednisone (Prednisone Tab) 30 mg PO DAILY [facility] Last Admin: 09/23/18 10:11 Dose: 30 mg - Labs Labs: 09/20/18 05:00 09/20/18 05:00 PT 12.0 SECONDS (9.4-12.5) 09/22/18 06:00 INR 1.06 09/22/18 06:00 APTT 23.8 Seconds (26.9-38.3) L 09/21/18 05:00
[2018-09-23 15:18] VITALS: BP 99/61; PULSE 75; RESP 20; TEMP 98; O2SAT 93
--- NOTE | 2018-09-23 18:09 | PN ---
DATE: 09/23/2018 CARDIOLOGY FOLLOWUP SUBJECTIVE: The patient's breathing is stable. PHYSICAL EXAMINATION: VITAL SIGNS: Blood pressure 113/67, heart rates in the 70s. NECK: Negative JVD. LUNGS: Without rales. HEART: Reveals S1 and S2. EXTREMITIES: Without edema. LABORATORY DATA: Hemoglobin is 10, white count is normal. BUN and creatinine 43 and 0.7, glucose is 129. IMPRESSION: 1. Exacerbation of chronic obstructive pulmonary disease which is better. 2. Coronary artery disease. 3. Dilated cardiomyopathy. 4. Severe chronic obstructive pulmonary disease. 5. Resolution of hyponatremia. 6. Diabetes mellitus. Given these findings, the patient is going to the TCU today. She would benefit from ambulation. Nick Rowley MD
--- NOTE | 2018-09-23 20:40 | CP.PCM.PN ---
Subjective - Date & Time of Evaluation Date of Evaluation: 09/23/18 Time of Evaluation: 13:00 - Subjective Subjective: Feeling better. Objective - Vital Signs/Intake and Output Vital Signs (last 24 hours): Temp Pulse Resp BP Pulse Ox 98 F 75 20 99/61 L 93 L 09/23/18 15:17 09/23/18 15:17 09/23/18 15:17 09/23/18 15:17 09/23/18 15:17 Intake and Output: 09/23/18 09/24/18 18:59 06:59 Intake Total 480 Output Total 1 Balance 479 - Labs Labs: 09/20/18 05:00 09/20/18 05:00 PT 12.0 SECONDS (9.4-12.5) 09/22/18 06:00 INR 1.06 09/22/18 06:00 APTT 23.8 Seconds (26.9-38.3) L 09/21/18 05:00 - Head Exam Head Exam: ATRAUMATIC - Eye Exam Eye Exam: Normal appearance - ENT Exam ENT Exam: Mucous Membranes Dry - Respiratory Exam Respiratory Exam: NORMAL BREATHING PATTERN - Cardiovascular Exam Cardiovascular Exam: +S1, +S2 Assessment and Plan (1) Thigh hematoma Assessment & Plan: related to recent fall and anticoagulation anticoagulation stopped and IVC filter placed Status: Acute (2) Pulmonary embolism Assessment & Plan: likely embolized from lower extremities given recent fall and immobility anticoagulation contraindicated given acute thigh hematoma s/p retrievable IVC filter Status: Acute (3) Anemia Assessment & Plan: secondary to hemorrhage into thigh normal iron/b12/folate stores H/H improving Status: Acute
--- NOTE | 2018-09-23 20:58 | PN ---
DATE: 09/23/2018 SUBJECTIVE: The patient was seen earlier today in room 566. PHYSICAL EXAMINATION VITAL SIGNS: Temperature is 98, blood pressure is 99/60, respiratory rate of 20. HEENT: Unremarkable. NECK: Supple. CARDIOPULMONARY: Heart; normal S1, S2. LUNGS: Have decreased breath sounds. ABDOMEN: Soft. LABORATORY DATA: Reveals a white count of 10,000, hemoglobin 10, platelets of 303. Chemistries are noted. BUN of 43, creatinine of 0.7. Serology is noted. ASSESSMENT AND PLAN: A 73-year-old female who was seen early this morning in room 566, bed 1 with chronic obstructive lung disease, tobacco use, found unresponsive and admitted with severe sepsis, acute respiratory failure, intubated on a ventilator, found to have pulmonary emboli and community-acquired pneumonia and now with severe sepsis, now extubated and has completed the antibiotic therapy. The patient is at risk for developing nosocomial infections. Agapito Rojo MD
== END 2018-09-23 17:52 | DRG 853 ==
LOC: ED 11:00 → ERH 13:51 → ICU 15:54 → 5RNO 09-22 12:48
PROVIDERS: ADMIT Internal Medicine; ATTEND Internal Medicine
PROC: 0BH17EZ Insertion of Endotracheal Airway into Trachea, Via Natural or Artificial Opening (ICD-10-PCS; 2018-09-08)
PROC: 5A1945Z Respiratory Ventilation, 24-96 Consecutive Hours (ICD-10-PCS; 2018-09-08)
PROC: 05HM33Z Insertion of Infusion Device into Right Internal Jugular Vein, Percutaneous Approach (ICD-10-PCS; 2018-09-08)
PROC: 3E0F7GC Introduction of Other Therapeutic Substance into Respiratory Tract, Via Natural or Artificial Opening (ICD-10-PCS; 2018-09-08)
PROC: 5A09457 Assistance with Respiratory Ventilation, 24-96 Consecutive Hours, Continuous Positive Airway Pressure (ICD-10-PCS; 2018-09-10)
PROC: 06H03DZ Insertion of Intraluminal Device into Inferior Vena Cava, Percutaneous Approach (ICD-10-PCS; principal; 2018-09-15)
PROC: 30233K1 Transfusion of Nonautologous Frozen Plasma into Peripheral Vein, Percutaneous Approach (ICD-10-PCS; 2018-09-15)
PROC: 30233N1 Transfusion of Nonautologous Red Blood Cells into Peripheral Vein, Percutaneous Approach (ICD-10-PCS; 2018-09-15)
DX: A41.9 Sepsis, unspecified organism (principal); I26.99 Other pulmonary embolism without acute cor pulmonale; J18.1 Lobar pneumonia, unspecified organism; J96.01 Acute respiratory failure with hypoxia; J96.02 Acute respiratory failure with hypercapnia; I21.4 Non-ST elevation (NSTEMI) myocardial infarction; I50.21 Acute systolic (congestive) heart failure; J98.11 Atelectasis; Z68.41 Body mass index [BMI] 40.0-44.9, adult; Z99.11 Dependence on respirator [ventilator] status; J44.0 Chronic obstructive pulmonary disease with (acute) lower respiratory infection; E87.4 Mixed disorder of acid-base balance; J44.1 Chronic obstructive pulmonary disease with (acute) exacerbation; I13.0 Hypertensive heart and chronic kidney disease with heart failure and stage 1 through stage 4 chronic kidney disease, or unspecified chronic kidney disease; L03.115 Cellulitis of right lower limb; L03.116 Cellulitis of left lower limb; N17.9 Acute kidney failure, unspecified; E44.1 Mild protein-calorie malnutrition; D62 Acute posthemorrhagic anemia; J93.9 Pneumothorax, unspecified; I42.0 Dilated cardiomyopathy; R65.20 Severe sepsis without septic shock; E66.01 Morbid (severe) obesity due to excess calories; E87.5 Hyperkalemia; B36.9 Superficial mycosis, unspecified; E11.22 Type 2 diabetes mellitus with diabetic chronic kidney disease; N18.3 Chronic kidney disease, stage 3 (moderate); K80.20 Calculus of gallbladder without cholecystitis without obstruction; R16.0 Hepatomegaly, not elsewhere classified; I50.82 Biventricular heart failure; S70.12XA Contusion of left thigh, initial encounter; E11.65 Type 2 diabetes mellitus with hyperglycemia; I25.10 Atherosclerotic heart disease of native coronary artery without angina pectoris; I87.2 Venous insufficiency (chronic) (peripheral); E55.9 Vitamin D deficiency, unspecified; K59.00 Constipation, unspecified; L85.3 Xerosis cutis; L84 Corns and callosities; D25.9 Leiomyoma of uterus, unspecified; D73.4 Cyst of spleen; K76.0 Fatty (change of) liver, not elsewhere classified; F17.210 Nicotine dependence, cigarettes, uncomplicated; Z91.19 Patient's noncompliance with other medical treatment and regimen; W19.XXXA Unspecified fall, initial encounter; Y92.009 Unspecified place in unspecified non-institutional (private) residence as the place of occurrence of the external cause